=== PATIENT | male | born 1950 | race Caucasian/White ===

== ENCOUNTER → 2016-08-24 | Outpatient (CLI) | payer MEDICARE ==
[~2016-08-24] MED LIST: ALBU5SOL10 IH; ALPR.5T PO; BUDE6HFA IH; DIAZ2TAB2 PO; FLUO20CA25 PO; LISI40TA PO; MECL-124 PO; ONDAN4ODT PO; OXYC-12 PO; SCOP1PAT TD; TERB250T42 PO; TIOT18CA IH; TRAM50TA2 PO; ZLP10T PO
--- NOTE | 2016-08-24 15:20 | Diagnostic Imaging Report ---
PROCEDURE: Lung cancer screening CT chest without contrast. TECHNIQUE: Multiple contiguous axial images were obtained through the chest without the use of intravenous contrast. This is performed with a low-dose protocol. INDICATION: Currently asymptomatic patient with 60 pack years history of smoking Comparison: None. Findings: The lungs demonstrate no significant consolidation, mass or suspicious nodule. No significant interstitial lung changes and no significant emphysema changes are noted. The mediastinum demonstrates normal cardiac size, no pericardial effusion and normal size of the thoracic aorta. No mediastinal mass or lymphadenopathy is demonstrated. No axillary lymphadenopathy is seen. The hilar vessels are not opacified on this unenhanced exam with no obvious hilar mass. The osseous structures demonstrate mild degenerative changes changes in the mid to lower thoracic spine. IMPRESSION: No significant abnormality. Lung Rads Category 1. Normal. Recommendations: Annual screening low-dose CT scan. Dictated by: Dictated on workstation # [id number]
== END ==
LOC: RAD 10:53
PROVIDERS: ATTEND Nurse Practitioner Community Health
DX: Z12.2 Encounter for screening for malignant neoplasm of respiratory organs (principal); F17.210 Nicotine dependence, cigarettes, uncomplicated

== ENCOUNTER → 2017-01-03 | Outpatient (CLI) | payer MEDICARE | LOC: RAD 08:37 | PROVIDERS: ATTEND Orthopaedic Surgery | DX: M75.111 Incomplete rotator cuff tear or rupture of right shoulder, not specified as traumatic (principal) ==

== ENCOUNTER 2017-01-23 19:51 | Outpatient (CLI) | payer MEDICARE | END 2017-01-24 03:55 | disposition home or self-care (01) | LOC: SLEEP 19:51 | PROVIDERS: ATTEND Nurse Practitioner Family | DX: G47.33 Obstructive sleep apnea (adult) (pediatric) (principal); I10 Essential (primary) hypertension | CPT/HCPCS: 95810 ==

== ENCOUNTER → 2017-01-25 | Outpatient (CLI) | payer MEDICARE ==
[~2017-01-25] MED LIST changes: +ALBU0.63 IH; +ARFO15VI3 IH; +OXYC-197 PO; +RT-ALBUINH IH; +RT-ALBUTEROL SULF 2.5 MG/3 ML PRE-MIX VIAL IH ONE; +ZOLP5TAB7 PO
== END ==
LOC: RT 13:47
PROVIDERS: ATTEND Nurse Practitioner Family
DX: E66.01 Morbid (severe) obesity due to excess calories; Z72.0 Tobacco use; R09.02 Hypoxemia; J42 Unspecified chronic bronchitis; R06.02 Shortness of breath; J45.909 Unspecified asthma, uncomplicated
CPT/HCPCS: 94060; 94640; 94726; 94729

== ENCOUNTER 2017-03-20 11:41 | Outpatient (CLI) | payer MEDICARE ==
[~2017-03-20] VITALS: Ht 177.8 cm; Wt 162.6 kg
[~2017-03-20 11:41] MED LIST changes: -ALBU0.63 IH; -ARFO15VI3 IH; -OXYC-197 PO; -RT-ALBUINH IH; -RT-ALBUTEROL SULF 2.5 MG/3 ML PRE-MIX VIAL IH ONE; -ZOLP5TAB7 PO
[2017-03-20] MEDS ORDERED: ARFO15VI3 IH (11:53)
[2017-03-20] MEDS ORDERED: ALBU0.63 IH (11:53)
[2017-03-20] MEDS ORDERED: LISI40TA PO (11:53)
[2017-03-20] MEDS ORDERED: RT-ALBUINH IH (11:53)
[2017-03-20] MEDS ORDERED: ZOLP5TAB7 PO (11:53)
[2017-03-20 11:56] VITALS: BP 115/76
== END 2017-03-20 14:13 | disposition home or self-care (01) ==
LOC: PREOP 11:41
PROVIDERS: ATTEND Orthopaedic Surgery
DX: Z01.818 Encounter for other preprocedural examination (principal); S43.491A Other sprain of right shoulder joint, initial encounter; X58.XXXA Exposure to other specified factors, initial encounter; Y99.8 Other external cause status
CPT/HCPCS: 87081

== ENCOUNTER 2017-03-22 09:14 | Day surgery (SDC) | payer MEDICARE ==
--- NOTE | 2017-03-09 06:15 | HISTORY AND PHYSICAL ---
DATE OF SERVICE: DATE OF OUTPATIENT SURGERY: 03/22/2017 for right shoulder arthroscopic biceps tenotomy. HISTORY: The patient is a 66-year-old right hand dominant gentleman with complaints of progressively worsening right shoulder pain. He has undergone treatment with injections, activity modifications and anti-inflammatories but he reports continued functional impairment. An MRI revealed rotator cuff tendinosis with no tearing with a near complete tear of the long head of his biceps. Due to functional impairment and failure to improve with conservative measures, the patient elected to proceed with surgical intervention. REVIEW OF SYSTEMS: No chest pain, no shortness of breath, no dysuria. PAST MEDICAL HISTORY: COPD, hypertension, vertigo. PAST SURGICAL HISTORY: Bilateral hip arthroplasty. FAMILY HISTORY: Ischemic heart disease. PRIMARY CARE PROVIDER: Xiomara Collado NP MEDICATIONS: Lisinopril, Albuterol, Brovana, Budesonide, Zolpidem, Hydrocodone, Alprazolam. ALLERGIES: No known drug allergies. SOCIAL HISTORY: The patient drinks alcohol socially, denies tobacco use. PHYSICAL EXAM: GENERAL: The patient is well-developed, well-nourished in no acute distress. HEENT: Normocephalic, atraumatic. Pupils are equal, round and reactive to light. Oropharynx is clear. NECK: Supple with no lymphadenopathy. LUNGS: Clear to auscultation bilaterally. HEART: Regular rate and rhythm. ABDOMEN: Soft, nontender, nondistended. EXTREMITIES: The right shoulder demonstrates positive Neer and positive Hawkin sign with a positive [place]'s whenever he has pain with apprehension relieved with relocation. He has symmetric forward elevation, external and internal rotation. No gross weakness to abduction, external or internal rotation. IMPRESSION: Right shoulder long-handed bicipital tendinosis with impingement. PLAN: Right shoulder arthroscopic biceps tenotomy and acromioplasty. The risks, benefits, options, ramifications and recovery have been discussed at length with the patient. He understands and wishes to proceed. Job ID: [id number] DocumentID: [id number] Dictated Date: 02/14/2017 11:44:09 Aeronautical Test Engineer Date: 02/14/2017 12:13:58 Dictated By: KATE STUART MD
--- NOTE | 2017-03-13 16:28 | HISTORY AND PHYSICAL ---
DATE OF SERVICE: ADMISSION HISTORY AND PHYSICAL DATE OF ADMISSION: 03/22/2017. LAST-FOUR SOCIAL SECURITY: 2283. REASON FOR ADMISSION: This will be for outpatient surgery on 03/22/2017 for right shoulder arthroscopy. HISTORY OF PRESENT ILLNESS: The patient is a 66-year-old right hand dominant gentleman with complaints of right shoulder pain, worse with overhead activities. He has undergone treatment with injections, home exercise program and activity modifications without relief. An MRI revealed rotator cuff tendinosis with near complete disruption of his long head of his biceps and due to functional impairment and failure to improve with conservative measures, the patient has elected to proceed with surgical intervention. REVIEW OF SYSTEMS: No chest pain, no shortness of breath, no dysuria. PAST MEDICAL HISTORY: COPD, hypertension, vertigo. PAST SURGICAL HISTORY: Bilateral hip arthroplasty. FAMILY HISTORY: Significant for ischemic heart disease and cancer. PRIMARY CARE PROVIDER: [facility]. MEDICATIONS: 1. Lisinopril. 2. Albuterol. 3. Brovana. 4. Budesonide. 5. Zolpidem. 6. Hydrocodone. 7. Alprazolam. ALLERGIES: No known drug allergies. SOCIAL HISTORY: The patient drinks alcohol socially. Denies tobacco use. PHYSICAL EXAMINATION: GENERAL: The patient is well developed, well nourished, in no acute distress. HEENT: Normocephalic, atraumatic. Pupils are equal, round, and reactive to light. Oropharynx is clear. NECK: Supple, no lymphadenopathy. LUNGS: Clear to auscultation bilaterally. HEART: Regular rate and rhythm. ABDOMEN: Soft, nontender, nondistended. EXTREMITIES: The right shoulder demonstrates positive Neer's and positive Hawkin sign. He has weakness with abduction and external rotation with pain elicited. He has a markedly positive [place]'s maneuver. He is nontender to his acromioclavicular joint. He has no pain with cross body adduction. IMPRESSION: Right shoulder rotator cuff tendinosis with long head of biceps tear. PLAN: Right shoulder arthroscopy with biceps tenotomy and acromioplasty. The patient understands risks, benefits, options, ramifications and recovery. He understands and wishes to proceed. Job ID: [id number] DocumentID: [id number] Dictated Date: 03/13/2017 13:21:48 Psychiatry Teacher Date: 03/13/2017 14:04:18 Dictated By: KATE STUART MD
[~2017-03-22] VITALS: Ht 177.8 cm; Wt 162.6 kg
[2017-03-22 09:14] VITALS: BP 153/98
[~2017-03-22 09:14] MED LIST changes: +ALBU0.63 IH; +ARFO15VI3 IH; +RT-ALBUINH IH; +ZOLP5TAB7 PO
--- OUTSIDE RECORDS SUMMARY | 2017-03-22 09:22 | XMS REPORT ---
Author Author JENNIFER FERRELL Organization [employer] Address Unknown Phone Unavailable Care Team Providers Care Hearing Aid Fitter Name Role Phone JENNIFER FERRELL CP Unavailable Allergies No Known Allergies Problems Problem Type Condition Code Onset Dates Condition Status Problem Polyuria 788.42 Active Problem Other malaise and fatigue 780.79 Active Problem Enthesopathy of unspecified site 726.90 Active Problem Shortness of breath R06.02 Active Problem Persistent disorder of 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.42 Active Problem Insomnia G47.00 Active Problem Unspecified constipation 564.00 Active Problem Hypoxemia 799.02 Active Problem Unspecified prostatitis 601.9 Active Problem Asthma, unspecified, with (acute) exacerbation 493.92 Active Problem Insomnia, unspecified 780.52 Active Problem Lumbago 724.2 Active Problem Pain in joint, pelvic region and thigh 719.45 Active Problem Obesity, unspecified 278.00 Active Problem Esophageal reflux 530.81 Active Problem Dysthymic disorder 300.4 Active Problem Blood in stool 578.1 Active Problem Injury of face and neck, other and unspecified 959.09 Active Problem Diarrhea 787.91 Active Problem Open wound of hand except finger(s) alone, without mention of complication 882.0 Active Medications Medication Code System Code Instructions Start Date End Date Status Dosage Xanax [facility] [address]-73 1 MG Orally 2 times a day August 04, 2014 1 tablet Hydrocodone-Acetaminophen [facility] [address]-15 10-325 MG Orally Once a day August 04, 2014 1 tablet Results No Known Results Summary Purpose eClinicalWorks Submission
--- OUTSIDE RECORDS SUMMARY | 2017-03-22 09:22 | XMS REPORT ---
Author Author JENNIFER FERRELL Organization [employer] Address Unknown Phone Unavailable Care Team Providers Care Internet Designer Name Role Phone JENNIFER FERRELL CP Unavailable Allergies No Known Allergies Problems Problem Type Condition Code Onset Dates Condition Status Problem Injury of face and neck, other and unspecified 959.09 Active Problem Polyuria 788.42 Active Problem Open wound of hand except finger(s) alone, without mention of complication 882.0 Active Problem Unspecified prostatitis 601.9 Active Problem Asthma, unspecified, with (acute) exacerbation 493.92 Active Problem Persistent disorder of 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.42 Active Problem Other malaise and fatigue 780.79 Active Problem Enthesopathy of unspecified site 726.90 Active Problem Unspecified constipation 564.00 Active Problem Hypoxemia 799.02 Active Problem Pain in joint, pelvic region and thigh 719.45 Active Problem Obesity, unspecified 278.00 Active Problem Blood in stool 578.1 Active Problem Diarrhea 787.91 Active Problem Insomnia, unspecified 780.52 Active Problem Esophageal reflux 530.81 Active Problem Lumbago 724.2 Active Problem Dysthymic disorder 300.4 Active Medications Medication Code System Code Instructions Start Date End Date Status Dosage Hydrocodone-Acetaminophen [facility] [address]-34 10-325 MG August 04, 2014 1 tablet by Oral route 1 time per day PRN at hs Xanax [facility] [address]-36 1 MG August 04, 2014 1 tablet by Oral route 2 times per day Results No Known Results Summary Purpose eClinicalWorks Submission
--- OUTSIDE RECORDS SUMMARY | 2017-03-22 09:22 | XMS REPORT ---
Author Author JENNIFER FERRELL [facility] Address [address] [place] [address] Care Team Providers Care Machine Operator Assistant Name Role Phone JENNIFER FERRELL Unavailable PROBLEMS Type Condition ICD9-CM Code [id number] Code Onset Dates Condition Status SNOMED Code Problem Gastroesophageal reflux disease without esophagitis K21.9 Active 867795803 Problem Mild intermittent asthma without complication J45.20 Active 241466556 Problem Dysthymia F34.1 Active 29130875 Problem Primary insomnia F51.01 Active 0699145 Problem Obstructive sleep apnea syndrome G47.33 Active 82635815 Problem Chronic obstructive pulmonary disease, unspecified J44.9 Active 88849284 Problem Insomnia G47.00 Active 182387678 Problem Shortness of breath R06.02 Active 965173260 Problem Low back pain M54.5 Active 204530499 Problem Anxiety F41.9 Active 69171446 ALLERGIES No Information SOCIAL HISTORY Never Assessed PLAN OF CARE VITAL SIGNS MEDICATIONS Medication Instructions Dosage Frequency Start Date End Date Duration Status ProAir HFA 108 (90 Base) MCG/ACT Inhalation every 4 hrs 2 puffs as needed for short of breath or wheeze 4h 90 days Active RESULTS No Results PROCEDURES No Known procedures IMMUNIZATIONS No Known Immunizations MEDICAL (GENERAL) HISTORY Type Description Date Medical History hypertension Medical History chronic obstructive pulmonary disease (COPD) Medical History diverticulitis Medical History gastroesophageal reflux disease (GERD) Medical History obesity Surgical History tonsillectomy Surgical History orthopedic surgery Surgical History cataract removal 05/2015 Hospitalization History Hospitalization for surgery only
--- OUTSIDE RECORDS SUMMARY | 2017-03-22 09:22 | XMS REPORT ---
Author Author JENNIFER FERRELL [facility] eClinicalWorks Address Unknown Phone Unavailable Care Team Providers Care Travel Professional Name Role Phone JENNIFER FERRELL CP Unavailable Allergies, Adverse Reactions, Alerts Substance Reaction Event Type N.K.D.A. Info Not Available Non Drug Allergy Problems Problem Type Condition Code Onset Dates Condition Status Assessment Bronchitis J40 Active Problem Enthesopathy of unspecified site 726.90 Active Assessment Anxiety F41.9 Active Problem Other malaise and fatigue 780.79 Active Assessment Low back pain M54.5 Active Problem Hypoxemia 799.02 Active Problem Asthma, unspecified, with (acute) exacerbation 493.92 Active Problem Unspecified constipation 564.00 Active Problem Low back pain M54.5 Active Problem Anxiety F41.9 Active Problem Insomnia, unspecified 780.52 Active Problem Obesity, unspecified 278.00 Active Problem Chronic obstructive pulmonary disease, unspecified J44.9 Active Problem Pain in joint, pelvic region and thigh 719.45 Active Problem Persistent disorder of 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.42 Active Problem Unspecified prostatitis 601.9 Active Problem Insomnia G47.00 Active Problem Shortness of breath R06.02 Active Problem Diarrhea 787.91 Active Problem Esophageal reflux 530.81 Active Problem Lumbago 724.2 Active Problem Blood in stool 578.1 Active Problem Open wound of hand except finger(s) alone, without mention of complication 882.0 Active Problem Polyuria 788.42 Active Problem Dysthymic disorder 300.4 Active Problem Injury of face and neck, other and unspecified 959.09 Active Medications Medication Code System Code Instructions Start Date End Date Status Dosage Transderm-Scop [facility] [address]-02 1 MG/3DAYS Transdermal every 3 days Mar apply 1 patch as directed ProAir HFA [facility] [address]-71 108 (90 Base) MCG/ACT Inhalation every 4 hrs 2 puffs as needed for short of breath or wheeze Hydrocodone-Acetaminophen [facility] [address]-74 10-325 MG Orally Once a day August 04, 2014 1 tablet Zithromax Z-Jake [facility] [address]-14 250 MG Orally Once a day Feb 23, 2016 Feb 28, 2016 2 tablets on the first day, then 1 tablet daily for 4 days Ambien [facility] [address]-58 10 mg Orally Once a day as needed 1 tablet at bedtime Albuterol Sulfate [facility] [address]-07 (2.5 MG/3ML) 0.083% Inhalation every 4 hrs 1 vial in nebuizer as needed for cough or wheeze Lisinopril [facility] [address]-83 40 MG Orally TAKE ONE TABLET BY MOUTH EVERY MORNING Budesonide [facility] [address]-21 0.5 MG/2ML Inhalation Twice a day 1 vial in nebulizer PredniSONE [facility] [address]-62 20 mg Orally Once a day Feb 23, 2016 3 tablets daily X 4 days, 3 tabs daily X 3 days, 2 tabs daily X 2 days, 1 tab x 1 day and stop Xanax [facility] [address]-41 1 MG Orally 2 times a day August 04, 2014 1 tablet Brovana [facility] [address]-90 15 MCG/2ML Inhalation Twice a day 1 vial in nebulizer Procedures Procedure Coding System Code Date [facility] VISIT ESTABLISHED PATIENT CPT-4 G0467 Feb 23, 2016 Office Visit, Est Pt., Level 3 CPT-4 86409 Feb 23, 2016 No Charge CPT-4 28132 Feb 23, 2016 Vital Signs Date/Time: Feb 23, 2016 Cardiac Monitoring Heart Rate 92 bpm Weight 347.1 lbs Height 70 in BMI 49.80 Index Blood Pressure Diastolic 76 mmHg Blood Pressure Systolic 110 mmHg Results Name Result Date Reference Range Unit Abnormality Flag [employer] Summary Purpose eClinicalWorks Submission
--- OUTSIDE RECORDS SUMMARY | 2017-03-22 09:23 | XMS REPORT ---
Author Author JENNIFER FERRELL [facility] Address [address] [place] [address] Care Team Providers Care Editor House Organ Name Role Phone JENNIFER FERRELL Unavailable PROBLEMS Type Condition ICD9-CM Code [id number] Code Onset Dates Condition Status SNOMED Code Problem Gastroesophageal reflux disease without esophagitis K21.9 Active 030342265 Problem Mild intermittent asthma without complication J45.20 Active 828745157 Problem Dysthymia F34.1 Active 69840910 Problem Primary insomnia F51.01 Active 8820245 Problem Obstructive sleep apnea syndrome G47.33 Active 91852462 Problem Chronic obstructive pulmonary disease, unspecified J44.9 Active 47392665 Problem Insomnia G47.00 Active 893386366 Problem Shortness of breath R06.02 Active 663631270 Problem Low back pain M54.5 Active 737205086 Problem Anxiety F41.9 Active 91193796 ALLERGIES Unknown Allergies SOCIAL HISTORY No smoking Hx information available PLAN OF CARE VITAL SIGNS MEDICATIONS Medication Instructions Dosage Frequency Start Date End Date Duration Status Hydrocodone-Acetaminophen 10-325 MG Orally Once a day 1 tablet 24h 25 May, 2016 28 days Active Xanax 1 MG Orally 2 times a day 1 tablet 12h 30 Jul, 2014 28 days Active RESULTS No Results PROCEDURES No Known procedures IMMUNIZATIONS No Known Immunizations
--- OUTSIDE RECORDS SUMMARY | 2017-03-22 09:23 | XMS REPORT ---
Author Author JENNIFER FERRELL [facility] Address [address] [place] [address] Care Team Providers Care Drop Man Name Role Phone JENNIFER FERRELL Unavailable PROBLEMS Type Condition ICD9-CM Code OSN23-GR Code Onset Dates Condition Status SNOMED Code Problem Unspecified constipation 564.00 Active 12246111 Problem Unspecified prostatitis 601.9 Active 4272310 Problem Asthma, unspecified, with (acute) exacerbation 493.92 Active 831190347 Problem Chronic obstructive pulmonary disease, unspecified J44.9 Active 19957202 Problem Lumbago 724.2 Active 856386719 Problem Low back pain M54.5 Active 535838314 Problem Insomnia, unspecified 780.52 Active 382737246 Problem Obesity, unspecified 278.00 Active 415376265 Problem Shortness of breath R06.02 Active 122135340 Problem Persistent disorder of 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.42 Active 60756019 Problem Anxiety F41.9 Active 57761513 Problem Insomnia G47.00 Active 811914246 Problem Esophageal reflux 530.81 Active 487493949 Problem Dysthymic disorder 300.4 Active 88010325 Problem Blood in stool 578.1 Active 742558051 Problem Diarrhea 787.91 Active 76701326 Problem Polyuria 788.42 Active 24970833 Problem Enthesopathy of unspecified site 726.90 Active 20359620 Problem Injury of face and neck, other and unspecified 959.09 Active 44007675 Problem Other malaise and fatigue 780.79 Active 009655387 Problem Pain in joint, pelvic region and thigh 719.45 Active 891640241 Problem Open wound of hand except finger(s) alone, without mention of complication 882.0 Active 86705518 Problem Hypoxemia 799.02 Active 501176370 ALLERGIES No Known Allergies SOCIAL HISTORY No smoking Hx information available PLAN OF CARE VITAL SIGNS MEDICATIONS Medication Instructions Dosage Frequency Start Date End Date Duration Status Lisinopril 40 MG TAKE ONE TABLET BY MOUTH EVERY MORNING 90 Active RESULTS No Results PROCEDURES No Known procedures IMMUNIZATIONS No Known Immunizations
--- OUTSIDE RECORDS SUMMARY | 2017-03-22 09:23 | XMS REPORT ---
Author Author JENNIFER FERRELL [facility] eClinicalWorks Address Unknown Phone Unavailable Care Team Providers Care Major League Baseball Player Name Role Phone JENNIFER FERRELL CP Unavailable [...] 719.45 Active Problem Obesity, unspecified 278.00 Active Assessment Chronic obstructive pulmonary disease, unspecified J44.9 Active Problem Blood in stool 578.1 Active Problem Diarrhea 787.91 Active Problem Insomnia, unspecified 780.52 Active Problem Esophageal reflux 530.81 Active Problem Lumbago 724.2 Active Problem Dysthymic disorder 300.4 Active Medications Medication Code System Code Instructions Start Date End Date Status Dosage Lisinopril [facility] 80111357073 40 TAKE ONE TABLET BY MOUTH EVERY MORNING Ambien [facility] [address]-15 5 MG Orally Once a day as needed 1 tablet at bedtime ProAir HFA [facility] [address]-81 108 (90 Base) MCG/ACT Inhalation 4 times a day 2 puffs as needed Budesonide [facility] [address]-84 0.25 MG/2ML Inhalation Once a day 2 ml Xanax [facility] [address]-08 1 MG August 04, 2014 1 tablet by Oral route 2 times per day Albuterol Sulfate [facility] [address]-65 (2.5 MG/3ML) 0.083% Inhalation every 4 hrs 3 ml as needed Brovana [facility] [address]-01 15 MCG/2ML Inhalation Twice a day 2 ml Hydrocodone-Acetaminophen [facility] [address]-48 10-325 MG August 04, 2014 1 tablet by Oral route 1 time per day PRN at Procedures Procedure Coding System Code Date Office Visit, Est Pt., Level 3 CPT-4 53183 Feb 12, 2015 REPLACED BY [facility] VISIT ESTABLISHED PATIENT CPT-4 G0467 Feb 12, 2015 Vital Signs Date/Time: Feb 12, 2015 Temperature 98.1 F Weight 350.3 lbs Height 70 in BMI 50.26 Index Blood Pressure Diastolic 86 mmHg Blood Pressure Systolic 134 mmHg Cardiac Monitoring Heart Rate 84 bpm Results No Known Results Summary Purpose eClinicalWorks Submission
--- OUTSIDE RECORDS SUMMARY | 2017-03-22 09:23 | XMS REPORT ---
Author Author JENNIFER FERRELL Organization [employer] Address Unknown Phone Unavailable Care Team Providers Care Demo Event Specialist Name Role Phone JENNIFER FERRELL CP Unavailable Allergies No Known Allergies Problems Problem Type Condition Code Onset Dates Condition Status Problem Polyuria 788.42 Active Problem Other malaise and fatigue 780.79 Active Problem Enthesopathy of unspecified site 726.90 Active Problem Shortness of breath R06.02 Active Assessment Shortness of breath R06.02 Active Problem Persistent [...] Instructions Start Date End Date Status Dosage Symbicort [facility] 2] [address]-16 160-4.5 MCG/ACT Inhalation Twice a day July 2 puffs Results No Known Results Summary Purpose eClinicalWorks Submission
--- OUTSIDE RECORDS SUMMARY | 2017-03-22 09:23 | XMS REPORT ---
Author Author JENNIFER FERRELL Organization eClinicalWorks Address Unknown Phone Unavailable Care Team Providers Care Scratch Polisher Name Role Phone JENNIFER FERRELL CP Unavailable [...] Start Date End Date Status Dosage Hydrocodone-Acetaminophen [facility] [address]-63 10-325 MG August 04, 2014 1 tablet by Oral route 1 time per day PRN at hs Xanax [facility] [address]-40 1 MG August 04, 2014 1 tablet by Oral route 2 times per day Results No Known Results Summary Purpose eClinicalWorks Submission
--- OUTSIDE RECORDS SUMMARY | 2017-03-22 09:23 | XMS REPORT ---
Author Author JENNIFER FERRELL [facility] Address [address] [place] [address] Care Team Providers Care Vending Route Driver Name Role Phone JENNIFER FERRELL Unavailable PROBLEMS Type Condition ICD9-CM Code [id number] Code Onset Dates Condition Status SNOMED Code Problem Gastroesophageal reflux disease without esophagitis K21.9 Active 229346681 Problem Mild intermittent asthma without complication J45.20 Active 320256556 Problem Dysthymia F34.1 Active 19549796 Problem Primary insomnia F51.01 Active 9387517 Problem Obstructive sleep apnea syndrome G47.33 Active 67759520 Problem Chronic obstructive pulmonary disease, unspecified J44.9 Active 67332166 Problem Insomnia G47.00 Active 270192481 Problem Shortness of breath R06.02 Active 051280129 Problem Low back pain M54.5 Active 484588509 Problem Anxiety F41.9 Active 12881763 ALLERGIES No Information SOCIAL HISTORY Never Assessed PLAN OF CARE VITAL SIGNS MEDICATIONS Medication Instructions Dosage Frequency Start Date End Date Duration Status Lisinopril 40 MG Orally Once a day 1 tablet 24h 90 days Active RESULTS No Results PROCEDURES No Known procedures IMMUNIZATIONS No Known Immunizations MEDICAL (GENERAL) HISTORY Type Description Date Medical History hypertension Medical History chronic obstructive pulmonary disease (COPD) Medical History diverticulitis Medical History gastroesophageal reflux disease (GERD) Medical History obesity Medical History PFT 01/2017 Mod obstructive Defect Surgical History tonsillectomy Surgical History orthopedic surgery Surgical History cataract removal 05/2015 Hospitalization History Hospitalization for surgery only
--- OUTSIDE RECORDS SUMMARY | 2017-03-22 09:23 | XMS REPORT ---
Author Author JENNIFER FERRELL Organization eClinicalWorks Address Unknown Phone Unavailable Care Team Providers Care Hha Name Role Phone JENNIFER FERRELL CP Unavailable Allergies No Known Allergies Problems Problem Type Condition ICD-9 Code Onset Dates Condition Status Problem Injury [...] Start Date End Date Status Dosage Hydrocodone-Acetaminophen [facility] [address]-67 10-325 MG August 04, 2014 1 tablet by Oral route 1 time per day PRN at hs Xanax [facility] [address]-65 1 MG August 04, 2014 1 tablet by Oral route 2 times per day Results No Known Results Summary Purpose eClinicalWorks Submission
--- OUTSIDE RECORDS SUMMARY | 2017-03-22 09:24 | XMS REPORT ---
Author Author JENNIFER FERRELL Organization eClinical[employer] Address Unknown Phone Unavailable Care Team Providers Care Clock Smith Name Role Phone JENNIFER FERRELL CP Unavailable Allergies No Known Allergies Problems Problem Type Condition Code Onset Dates Condition Status Problem Other malaise and fatigue 780.79 Active Problem Unspecified constipation 564.00 Active Problem Hypoxemia 799.02 Active Problem Anxiety F41.9 Active Problem Obesity, unspecified 278.00 Active Problem Insomnia G47.00 Active Problem Pain in joint, pelvic region and thigh 719.45 Active Problem Low back pain M54.5 Active Problem Unspecified prostatitis 601.9 Active Problem Asthma, unspecified, with (acute) exacerbation 493.92 Active Problem Shortness of breath R06.02 Active Problem Persistent disorder of 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.42 Active Problem Blood in stool 578.1 Active Problem Diarrhea 787.91 Active Problem Insomnia, unspecified 780.52 Active Problem Lumbago 724.2 Active Problem Injury of face and neck, other and unspecified 959.09 Active Problem Open wound of hand except finger(s) alone, without mention of complication 882.0 Active Problem Esophageal reflux 530.81 Active Problem Polyuria 788.42 Active Problem Dysthymic disorder 300.4 Active Problem Enthesopathy of unspecified site 726.90 Active Medications Medication Code System Code Instructions Start Date End Date Status Dosage ProAir A [facility] [address]-14 108 (90 Base) MCG/ACT Inhalation every 4 hrs 2 puffs as needed for short of breath or wheeze Results No Known Results Summary Purpose eClinicalWorks Submission
--- OUTSIDE RECORDS SUMMARY | 2017-03-22 09:24 | XMS REPORT ---
Author Author JENNIFER FERRELL [facility] Address [address] [place] [address] Care Team Providers Care Finishing Technician Name Role Phone JENNIFER FERRELL Unavailable PROBLEMS Type Condition ICD9-CM Code [id number] Code Onset Dates Condition Status SNOMED Code Assessment Encounter for immunization Z23 Mar, Active 958004466 Problem Hypoxemia 799.02 Active 871755696 Problem Pain in joint, pelvic region and thigh 719.45 Active 919387357 Problem Unspecified constipation 564.00 Active 90236378 Problem Obesity, unspecified 278.00 Active 372492863 Problem Asthma, unspecified, with (acute) exacerbation 493.92 Active 084922860 Problem Persistent disorder of 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.42 Active 22679797 Problem Unspecified prostatitis 601.9 Active 9430829 Problem Obstructive sleep apnea syndrome G47.33 Active 95565533 Problem Chronic obstructive pulmonary disease, unspecified J44.9 Active 74390717 Problem Blood in stool 578.1 Active 442798005 Problem Lumbago 724.2 Active 511313230 Problem Insomnia, unspecified 780.52 Active 627332708 Problem Insomnia G47.00 Active 564448732 Problem Shortness of breath R06.02 Active 917298709 Problem Low back pain M54.5 Active 581670492 Problem Anxiety F41.9 Active 16822345 Problem Dysthymic disorder 300.4 Active 19338955 Problem Injury of face and neck, other and unspecified 959.09 Active 81534829 Problem Diarrhea 787.91 Active 07219697 Problem Esophageal reflux 530.81 Active 076459032 Problem Enthesopathy of unspecified site 726.90 Active 27410078 Problem Other malaise and fatigue 780.79 Active 370275665 Problem Open wound of hand except finger(s) alone, without mention of complication 882.0 Active 63587507 Problem Polyuria 788.42 Active 11379496 ALLERGIES Substance Reaction Event Type Date Status N.K.D.A. Unknown Non Drug Allergy Mar, Unknown SOCIAL HISTORY No smoking Hx information available PLAN OF CARE VITAL SIGNS Height 70 in 2016-03-24 Weight 348.0 lbs 2016-03-24 Heart Rate 78 bpm 2016-03-24 Respiratory Rate 22 2016-03-24 Oximetry 96 % 2016-03-24 BMI 49.93 kg/m2 2016-03-24 Blood pressure systolic 118 mmHg 2016-03-24 Blood pressure diastolic 72 mmHg 2016-03-24 MEDICATIONS Medication Instructions Dosage Frequency Start Date End Date Duration Status Albuterol Sulfate (2.5 MG/3ML) 0.083% Inhalation every 4 hrs 1 vial in nebuizer as needed for cough or wheeze 4h Active Brovana 15 MCG/2ML Inhalation Twice a day 1 vial in nebulizer 12h Active Transderm-Scop 1 MG/3DAYS Transdermal every 3 days apply 1 patch as directed Mar, Active Xanax 1 MG Orally 2 times a day 1 tablet 12h Jul, 28 days Active Lisinopril 40 MG TAKE ONE TABLET BY MOUTH EVERY MORNING 90 Active Budesonide 0.5 MG/2ML Inhalation Twice a day 1 vial in nebulizer 12h Active ProAir HFA 108 (90 Base) MCG/ACT Inhalation every 4 hrs 2 puffs as needed for short of breath or wheeze 4h Active Ambien 10 mg Orally Once a day as needed 1 tablet at bedtime Active Hydrocodone-Acetaminophen 10-325 MG Orally Once a day 1 tablet 24h Jul, Apr, 28 days Active RESULTS No Results PROCEDURES Procedure Date Ordered Related Diagnosis Body Site MEASURE BLOOD OXYGEN LEVEL Mar 24, 2016 [facility] VISIT ESTABLISHED PATIENT Mar 24, 2016 Office Visit, Est Pt., Level 3 Mar 24, 2016 IMMUNIZATIONS No Known Immunizations
--- OUTSIDE RECORDS SUMMARY | 2017-03-22 09:26 | XMS REPORT ---
Author Author JENNIFER FERRELL [facility] Address [address] [place] [address] Care Team Providers Care Boat Tester Name Role Phone JENNIFER FERRELL Unavailable PROBLEMS Type Condition ICD9-CM Code [id number] Code Onset Dates Condition Status SNOMED Code Problem Unspecified constipation 564.00 Active 38007378 Problem Unspecified prostatitis 601.9 Active 5138966 Problem Asthma, unspecified, with (acute) exacerbation 493.92 Active 927621476 Problem Chronic obstructive pulmonary disease, unspecified J44.9 Active 66748709 Problem Lumbago 724.2 Active 820399683 Problem Low back pain M54.5 Active 820590618 Problem Insomnia, unspecified 780.52 Active 883173722 Problem Obesity, unspecified 278.00 Active 829420850 Problem Shortness of breath R06.02 Active 670554357 Problem Persistent disorder of 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.42 Active 03237610 Problem Anxiety F41.9 Active 28521397 Problem Insomnia G47.00 Active 679796077 Problem Esophageal reflux 530.81 Active 221041872 Problem Dysthymic disorder 300.4 Active 40933824 Problem Blood in stool 578.1 Active 023985490 Problem Diarrhea 787.91 Active 42689622 Problem Polyuria 788.42 Active 25541440 Problem Enthesopathy of unspecified site 726.90 Active 63678159 Assessment Chronic obstructive pulmonary disease, unspecified J44.9 Jan, Active 19527684 Problem Injury of face and neck, other and unspecified 959.09 Active 45504622 Problem Other malaise and fatigue 780.79 Active 450144802 Problem Pain in joint, pelvic region and thigh 719.45 Active 149137544 Problem Open wound of hand except finger(s) alone, without mention of complication 882.0 Active 90595600 Problem Hypoxemia 799.02 Active 390020996 ALLERGIES No Known Allergies SOCIAL HISTORY No smoking Hx information available PLAN OF CARE VITAL SIGNS MEDICATIONS Medication Instructions Dosage Frequency Start Date End Date Duration Status Lisinopril 40 MG TAKE ONE TABLET BY MOUTH EVERY MORNING 90 Active Xanax 1 MG Orally 2 times a day 1 tablet 12h 30 Jul, 2014 28 days Active Albuterol Sulfate (2.5 MG/3ML) 0.083% Inhalation every 4 hrs 1 vial in nebuizer as needed for cough or wheeze 4h Active Ambien 10 mg Orally Once a day as needed 1 tablet at bedtime Active Budesonide 0.5 MG/2ML Inhalation Twice a day 1 vial in nebulizer 12h Active Advair Diskus 250-50 MCG/DOSE Inhalation Twice a day 1 puff 12h Aug, Active Hydrocodone-Acetaminophen 10-325 MG Orally Once a day 1 tablet 24h 30 Jul, 2014 28 days Active Brovana 15 MCG/2ML Inhalation Twice a day 1 vial in nebulizer 12h Active Transderm-Scop 1 MG/3DAYS Transdermal every 3 days apply 1 patch as directed Mar, Active ProAir HFA 108 (90 Base) MCG/ACT Inhalation every 4 hrs 2 puffs as needed for short of breath or wheeze 4h Active RESULTS No Results PROCEDURES No Known procedures IMMUNIZATIONS No Known Immunizations
--- OUTSIDE RECORDS SUMMARY | 2017-03-22 09:26 | XMS REPORT ---
Author Author JENNIFER FERRELL Organization eClinicalWorks Address Unknown Phone Unavailable Care Team Providers Care Associate Media Director Name Role Phone JENNIFER FERRELL CP Unavailable [...] Instructions Start Date End Date Status Dosage Ambien [facility] [address]-01 10 mg Orally Once a day as needed 1 tablet at bedtime Albuterol Sulfate [facility] [address]-12 (2.5 MG/3ML) 0.083% Inhalation every 4 hrs 1 vial as needed for cough or wheeze Results No Known Results Summary Purpose eClinicalWorks Submission
--- OUTSIDE RECORDS SUMMARY | 2017-03-22 09:27 | XMS REPORT ---
Author Author JENNIFER FERRELL [facility] Address [address] [place] [address] Care Team Providers Care Icu Manager Name Role Phone JENNIFER FERRELL Unavailable PROBLEMS Type Condition ICD9-CM Code UJP52-QS Code Onset Dates Condition Status SNOMED Code Problem Dysthymia F34.1 Active 68865384 Problem Primary insomnia F51.01 Active 1561562 Problem Mild intermittent asthma without complication J45.20 Active 746245854 Problem Gastroesophageal reflux disease without esophagitis K21.9 Active 272280689 Problem Obstructive sleep apnea syndrome G47.33 Active 33906377 Problem Chronic obstructive pulmonary disease, unspecified J44.9 Active 41658413 Problem Insomnia G47.00 Active 203149383 Problem Shortness of breath R06.02 Active 163054150 Problem Low back pain M54.5 Active 367999250 Problem Anxiety F41.9 Active 84052039 ALLERGIES Unknown Allergies SOCIAL HISTORY No smoking Hx information available PLAN OF CARE VITAL SIGNS MEDICATIONS Unknown Medications RESULTS No Results PROCEDURES No Known procedures IMMUNIZATIONS No Known Immunizations
--- OUTSIDE RECORDS SUMMARY | 2017-03-22 09:28 | XMS REPORT ---
Author Author JENNIFER FERRELL Organization eClinicalWorks Address Unknown Phone Unavailable Care Team Providers Care Wet End Supervisor Name Role Phone JENNIFER FERRELL CP Unavailable [...] Active Problem Dysthymic disorder 300.4 Active Medications No Known Medications Results No Known Results Summary Purpose eClinicalWorks Submission
--- OUTSIDE RECORDS SUMMARY | 2017-03-22 09:28 | XMS REPORT ---
Author Author JENNIFER FERRELL Organization eClinical[employer] Address Unknown Phone Unavailable Care Team Providers Care Global Expansion Sales Director Name Role Phone JENNIFER FERRELL CP [...] Instructions Start Date End Date Status Dosage Advair Diskus [facility] [address]-49 250-50 MCG/DOSE Inhalation Twice a day August 31, 2015 1 puff Results No Known Results Summary Purpose eClinicalWorks Submission
--- OUTSIDE RECORDS SUMMARY | 2017-03-22 09:29 | XMS REPORT ---
Author Author JENNIFER FERRELL Organization eClinical[employer] Address Unknown Phone Unavailable Care Team Providers Care Note Keeper Name Role Phone JENNIFER FERRELL CP Unavailable Allergies No Known Allergies Problems Problem Type Condition Code Onset Dates Condition Status Problem Hypoxemia 799.02 Active Problem Asthma, unspecified, with (acute) exacerbation 493.92 Active Problem Unspecified constipation 564.00 Active Problem Low back pain M54.5 Active Problem Insomnia, unspecified 780.52 Active Problem Anxiety F41.9 Active Problem Obesity, unspecified 278.00 Active Problem Pain in joint, pelvic region and thigh 719.45 Active Problem Chronic obstructive pulmonary disease, unspecified J44.9 Active Problem Persistent disorder of initiating or [...] Enthesopathy of unspecified site 726.90 Active Assessment Chronic obstructive pulmonary disease, unspecified J44.9 Active Problem Injury of face and neck, other and unspecified 959.09 Active Problem Other malaise and fatigue 780.79 Active Medications Medication Code System Code Instructions Start Date End Date Status Dosage Albuterol Sulfate [facility] [address]-37 (2.5 MG/3ML) 0.083% Inhalation every 4 hrs 1 vial in nebuizer as needed for cough or wheeze Results No Known Results Summary Purpose eClinicalWorks Submission
--- OUTSIDE RECORDS SUMMARY | 2017-03-22 09:29 | XMS REPORT ---
Author Author JENNIFER FERRELL [facility] eClinical[employer] Address Unknown Phone Unavailable Care Team Providers Care Electrician Helper Powerhouse Name Role Phone JENNIFER FERRELL CP Unavailable Allergies No Known Allergies Problems Problem Type Condition Code Onset Dates Condition Status Problem Other malaise and fatigue 780.79 Active Problem Unspecified constipation 564.00 Active Problem Hypoxemia 799.02 Active Problem Anxiety F41.9 Active Problem Obesity, unspecified 278.00 Active Problem Insomnia G47.00 Active Problem Pain in joint, pelvic region and thigh 719.45 Active Assessment Vertigo R42 Active Problem Low back pain M54.5 Active [...] Start Date End Date Status Dosage Ambien [facility] [address]-76 10 mg Orally Once a day as needed 1 tablet at bedtime Lisinopril [facility] [address]-33 40 MG Orally TAKE ONE TABLET BY MOUTH EVERY MORNING Brovana [facility] [address]-20 15 MCG/2ML Inhalation Twice a day 2 ml Budesonide [facility] [address]-14 0.25 MG/2ML Inhalation Once a day 2 ml Hydrocodone-Acetaminophen [facility] [address]-71 10-325 MG Orally Once a day August 04, 2014 1 tablet Xanax [facility] [address]-65 1 MG Orally 2 times a day August 04, 2014 1 tablet ProAir HFA [facility] [address]-87 108 (90 Base) MCG/ACT Inhalation every 4 hrs 2 puffs as needed for short of breath or wheeze Transderm-Scop [facility] [address]-73 1 MG/3DAYS Transdermal every 3 days Mar apply 1 patch as directed Advair Diskus [facility] [address]-18 250-50 MCG/DOSE Inhalation Twice a day August 31, 2015 1 puff Albuterol Sulfate [facility] [address]-81 (2.5 MG/3ML) 0.083% Inhalation every 4 hrs 1 vial as needed for cough or wheeze Results No Known Results Summary Purpose eClinicalWorks Submission
--- OUTSIDE RECORDS SUMMARY | 2017-03-22 09:29 | XMS REPORT ---
Author Author JENNIFER FERRELL Organization eClinicalWorks Address Unknown Phone Unavailable Care Team Providers Care Country Printer Name Role Phone JENNIFER FERRELL CP Unavailable [...] Start Date End Date Status Dosage Xanax [facility] [address]-15 1 MG August 04, 2014 1 tablet by Oral route 2 times per day Hydrocodone-Acetaminophen [facility] [address]-57 10-325 MG August 04, 2014 1 tablet by Oral route 1 time per day PRN at hs Results No Known Results Summary Purpose eClinicalWorks Submission
--- OUTSIDE RECORDS SUMMARY | 2017-03-22 09:29 | XMS REPORT ---
Author Author JENNIFER FERRELL [facility] Address [address] [place] [address] Care Team Providers Care Skid Worker Name Role Phone JENNIFER FERRELL Unavailable PROBLEMS Type Condition ICD9-CM Code FAB43-PF Code Onset Dates Condition Status SNOMED Code Problem Dysthymia F34.1 Active 29359540 Problem Primary insomnia F51.01 Active 9451394 Problem Mild intermittent asthma without complication J45.20 Active 351663158 Problem Gastroesophageal reflux disease without esophagitis K21.9 Active 366585804 Problem Obstructive sleep apnea syndrome G47.33 Active 12536428 Problem Chronic obstructive pulmonary disease, unspecified J44.9 Active 69737600 Problem Insomnia G47.00 Active 370040558 Problem Shortness of breath R06.02 Active 313649333 Problem Low back pain M54.5 Active 308553184 Problem Anxiety F41.9 Active 32669581 ALLERGIES Unknown Allergies SOCIAL HISTORY No smoking Hx information available PLAN OF CARE VITAL SIGNS MEDICATIONS Unknown Medications RESULTS No Results PROCEDURES No Known procedures IMMUNIZATIONS No Known Immunizations
[2017-03-22] MEDS ORDERED: ceFAZolin 1 GM/NS 50 ML IVPB IV ONE ×2 (09:30)
--- OUTSIDE RECORDS SUMMARY | 2017-03-22 09:30 | XMS REPORT ---
Author Author JENNIFER FERRELL [facility] Address [address] [place] [address] Care Team Providers Care Bar Manager Name Role Phone JENNIFER FERRELL Unavailable PROBLEMS Type Condition ICD9-CM Code YHN11-DW Code Onset Dates Condition Status SNOMED Code Problem Dysthymia F34.1 Active 21209895 Problem Primary insomnia F51.01 Active 0038246 Problem Mild intermittent asthma without complication J45.20 Active 258571360 Problem Gastroesophageal reflux disease without esophagitis K21.9 Active 361783488 Problem Obstructive sleep apnea syndrome G47.33 Active 45617373 Problem Chronic obstructive pulmonary disease, unspecified J44.9 Active 08264194 Problem Insomnia G47.00 Active 979346596 Problem Shortness of breath R06.02 Active 318309737 Problem Low back pain M54.5 Active 266120525 Problem Anxiety F41.9 Active 46866775 ALLERGIES Unknown Allergies SOCIAL HISTORY No smoking Hx information available PLAN OF CARE VITAL SIGNS MEDICATIONS Unknown Medications RESULTS No Results PROCEDURES No Known procedures IMMUNIZATIONS No Known Immunizations
--- OUTSIDE RECORDS SUMMARY | 2017-03-22 09:30 | XMS REPORT ---
Author Author JENNIFER FERRELL Organization eClinicalWorks Address Unknown Phone Unavailable Care Team Providers Care Treasury Agent Name Role Phone JENNIFER FERRELL CP Unavailable [...] Start Date End Date Status Dosage Xanax [facility] [address]-13 1 MG August 04, 2014 1 tablet by Oral route 2 times per day Hydrocodone-Acetaminophen [facility] [address]-29 10-325 MG August 04, 2014 1 tablet by Oral route 1 time per day PRN at hs Results No Known Results Summary Purpose eClinicalWorks Submission
--- OUTSIDE RECORDS SUMMARY | 2017-03-22 09:30 | XMS REPORT ---
Author Author JENNIFER FERRELL Organization eClinicalWorks Address Unknown Phone Unavailable Care Team Providers Care Director Of Research Name Role Phone JENNIFER FERRELL CP Unavailable [...] Date End Date Status Dosage Albuterol Sulfate [facility] [address]-88 (2.5 MG/3ML) 0.083% Inhalation every 4 hrs 1 vial in nebuizer as needed for cough or wheeze Results No Known Results Summary Purpose eClinicalWorks Submission
--- OUTSIDE RECORDS SUMMARY | 2017-03-22 09:32 | XMS REPORT ---
Author Author JENNIFER FERRELL [facility] Address [address] [place] [address] Care Team Providers Care Product Engineer Name Role Phone JENNIFER FERRELL Unavailable PROBLEMS Type Condition ICD9-CM Code [id number]-FD Code Onset Dates Condition Status SNOMED Code Problem Dysthymia F34.1 Active 88464283 Problem Primary insomnia F51.01 Active 6375835 Problem Mild intermittent asthma without complication J45.20 Active 223956316 Problem Gastroesophageal reflux disease without esophagitis K21.9 Active 665009315 Problem Obstructive sleep apnea syndrome G47.33 Active 20810649 Problem Chronic obstructive pulmonary disease, unspecified J44.9 Active 01784980 Problem Insomnia G47.00 Active 138824121 Problem Shortness of breath R06.02 Active 333919347 Problem Low back pain M54.5 Active 206370860 Problem Anxiety F41.9 Active 12377685 ALLERGIES Unknown Allergies SOCIAL HISTORY No smoking Hx information available PLAN OF CARE VITAL SIGNS MEDICATIONS Medication Instructions Dosage Frequency Start Date End Date Duration Status Albuterol Sulfate (2.5 MG/3ML) 0.083% Inhalation every 4 hrs 1 vial in nebuizer as needed for cough or wheeze 4h Active RESULTS No Results PROCEDURES No Known procedures IMMUNIZATIONS No Known Immunizations
--- OUTSIDE RECORDS SUMMARY | 2017-03-22 09:32 | XMS REPORT ---
Author Author JENNIFER FERRELL [facility] Address [address] [place] [address] Care Team Providers Care International Marketing Manager Name Role Phone JENNIFER FERRELL Unavailable PROBLEMS Type Condition ICD9-CM Code AAA57-RV Code Onset Dates Condition Status SNOMED Code Problem Dysthymia F34.1 Active 71989841 Problem Primary insomnia F51.01 Active 6548135 Problem Mild intermittent asthma without complication J45.20 Active 738366800 Problem Gastroesophageal reflux disease without esophagitis K21.9 Active 504999524 Problem Obstructive sleep apnea syndrome G47.33 Active 50631835 Problem Chronic obstructive pulmonary disease, unspecified J44.9 Active 26673643 Problem Insomnia G47.00 Active 863507174 Problem Shortness of breath R06.02 Active 798646769 Problem Low back pain M54.5 Active 795140340 Problem Anxiety F41.9 Active 48115440 ALLERGIES Unknown Allergies SOCIAL HISTORY No smoking Hx information available PLAN OF CARE VITAL SIGNS MEDICATIONS Medication Instructions Dosage Frequency Start Date End Date Duration Status Xanax 1 MG Orally 2 times a day 1 tablet 12h 30 Jul, 2014 28 days Active Hydrocodone-Acetaminophen 10-325 MG Orally Once a day 1 tablet 24h 21 Apr, 2016 28 days Active RESULTS No Results PROCEDURES No Known procedures IMMUNIZATIONS No Known Immunizations
--- OUTSIDE RECORDS SUMMARY | 2017-03-22 09:32 | XMS REPORT ---
Author Author JENNIFER FERRELL [facility] eClinicalWorks Address Unknown Phone Unavailable Care Team Providers Care Ropewalk Rope Maker Name Role Phone JENNIFER FERRELL CP Unavailable [...] Start Date End Date Status Dosage Ambien [facility] [address]-69 10 mg Orally Once a day as needed 1 tablet at bedtime Brovana [facility] [address]-51 15 MCG/2ML Inhalation Twice a day 1 vial in nebulizer PredniSONE [facility] [address]-95 20 mg Orally Once a day Feb 23, 2016 3 tablets daily X 4 days, 3 tabs daily X 3 days, 2 tabs daily X 2 days, 1 tab x 1 day and stop Lisinopril [facility] [address]-98 40 MG Orally TAKE ONE TABLET BY MOUTH EVERY MORNING Albuterol Sulfate [facility] [address]-40 (2.5 MG/3ML) 0.083% Inhalation every 4 hrs 1 vial in nebuizer as needed for cough or wheeze ProAir HFA [facility] [address]-78 108 (90 Base) MCG/ACT Inhalation every 4 hrs 2 puffs as needed for short of breath or wheeze Xanax [facility] [address]-06 1 MG Orally 2 times a day August 04, 2014 1 tablet Transderm-Scop [facility] [address]-00 1 MG/3DAYS Transdermal every 3 days Mar apply 1 patch as directed Hydrocodone-Acetaminophen [facility] [address]-24 10-325 MG Orally Once a day August 04, 2014 1 tablet Budesonide [facility] [address]-65 0.5 MG/2ML Inhalation Twice a day 1 vial in nebulizer Results No Known Results Summary Purpose eClinicalWorks Submission
--- OUTSIDE RECORDS SUMMARY | 2017-03-22 09:32 | XMS REPORT ---
Author Author JENNIFER FERRELL [facility] Address [address] [place] [address] Care Team Providers Care Client Server Developer Name Role Phone JENNIFER FERRELL Unavailable PROBLEMS Type Condition ICD9-CM Code ZAM27-UF Code Onset Dates Condition Status SNOMED Code Problem Gastroesophageal reflux disease without esophagitis K21.9 Active 273724124 Problem Mild intermittent asthma without complication J45.20 Active 546214430 Problem Dysthymia F34.1 Active 80760002 Problem Primary insomnia F51.01 Active 2771329 Problem Obstructive sleep apnea syndrome G47.33 Active 61011152 Problem Chronic obstructive pulmonary disease, unspecified J44.9 Active 69294121 Problem Insomnia G47.00 Active 217822793 Problem Shortness of breath R06.02 Active 235522808 Problem Low back pain M54.5 Active 185437773 Problem Anxiety F41.9 Active 76415006 ALLERGIES No Information SOCIAL HISTORY Never Assessed PLAN OF CARE VITAL SIGNS MEDICATIONS Medication Instructions Dosage Frequency Start Date End Date Duration Status Hydrocodone-Acetaminophen 10-325 MG Orally Once a day 1 tablet 24h 23 Jun, 2016 28 days Active Xanax 1 MG [...]
--- OUTSIDE RECORDS SUMMARY | 2017-03-22 09:34 | XMS REPORT ---
Author Author JENNIFER FERRELL Organization [employer] Address Unknown Phone Unavailable Care Team Providers Care Orthopedic Physician Name Role Phone JENNIFER FERRELL CP Unavailable Allergies No Known Allergies Problems Problem Type Condition Code Onset Dates Condition Status Problem Other malaise and fatigue 780.79 Active Assessment Chronic obstructive pulmonary disease, unspecified J44.9 Active Problem Hypoxemia 799.02 Active Problem Pain in joint, pelvic region and thigh 719.45 Active Problem Unspecified constipation 564.00 Active Problem Unspecified prostatitis 601.9 Active Problem Asthma, unspecified, with (acute) exacerbation 493.92 Active Problem Chronic obstructive pulmonary disease, unspecified J44.9 Active Problem Low back pain M54.5 Active Problem Lumbago 724.2 Active Problem Insomnia, unspecified 780.52 Active Problem Obstructive sleep apnea syndrome G47.33 Active Problem Obesity, unspecified 278.00 Active Problem Shortness of breath R06.02 Active Problem Persistent disorder of 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.42 Active Problem Anxiety F41.9 Active Problem Insomnia G47.00 Active Problem Esophageal reflux 530.81 Active Problem Dysthymic disorder 300.4 Active Problem Blood in stool 578.1 Active Problem Diarrhea 787.91 Active Problem Polyuria 788.42 Active Problem Enthesopathy of unspecified site 726.90 Active Problem Injury of face and neck, other and unspecified 959.09 Active Problem Open wound of hand except finger(s) alone, without mention of complication 882.0 Active Medications Medication Code System Code Instructions Start Date End Date Status Dosage Brovana [facility] [address]-55 15 MCG/2ML Inhalation Twice a day 1 vial in nebulizer Budesonide [facility] [address]-94 0.5 MG/2ML Inhalation Twice a day 1 vial in nebulizer Results No Known Results Summary Purpose [employer] Submission
--- OUTSIDE RECORDS SUMMARY | 2017-03-22 09:34 | XMS REPORT ---
Author Author JENNIFER FERRELL Organization [employer] Address Unknown Phone Unavailable Care Team Providers Care Software Development Specialist Name Role Phone JENNIFER FERRELL CP [...] Start Date End Date Status Dosage ProAir HFA [facility] [address]-12 108 (90 Base) MCG/ACT Inhalation every 4 hrs 2 puffs as needed for short of breath or wheeze Results No Known Results Summary Purpose [employer] Submission
--- OUTSIDE RECORDS SUMMARY | 2017-03-22 09:34 | XMS REPORT ---
Author Author JENNIFER FERRELL Organization [employer] Address Unknown Phone Unavailable Care Team Providers Care Classification Officer Name Role Phone JENNIFER FERRELL CP Unavailable [...] Date End Date Status Dosage ProAir HFA [facility] [address]-00 108 (90 Base) MCG/ACT Inhalation every 4 hrs 2 puffs as needed for short of breath or wheeze Results No Known Results Summary Purpose [employer] Submission
--- OUTSIDE RECORDS SUMMARY | 2017-03-22 09:34 | XMS REPORT ---
Author Author JENNIFER FERRELL Organization [employer] Address Unknown Phone Unavailable Care Team Providers Care Steam Table Associate Name Role Phone JENNIFER FERRELL CP Unavailable [...]
--- OUTSIDE RECORDS SUMMARY | 2017-03-22 09:34 | XMS REPORT ---
Author Author JENNIFER FERRELL Organization [employer] Address Unknown Phone Unavailable Care Team Providers Care Lamp Wirer Name Role Phone JENNIFER FERRELL CP Unavailable [...]
--- OUTSIDE RECORDS SUMMARY | 2017-03-22 09:34 | XMS REPORT ---
Author Author JENNIFER FERRELL [facility] Address [address] [place] [address] Care Team Providers Care Accelerator Systems Director Name Role Phone JENNIFER FERRELL Unavailable PROBLEMS Type Condition ICD9-CM Code GPN75-SI Code Onset Dates Condition Status SNOMED Code Problem Gastroesophageal reflux disease without esophagitis K21.9 Active 451332321 Problem Mild intermittent asthma without complication J45.20 Active 174313335 Problem Dysthymia F34.1 Active 89630421 Problem Primary insomnia F51.01 Active 1820929 Problem Obstructive sleep apnea syndrome G47.33 Active 21206805 Problem Chronic obstructive pulmonary disease, unspecified J44.9 Active 89982330 Problem Insomnia G47.00 Active 185653775 Problem Shortness of breath R06.02 Active 270557579 Problem Low back pain M54.5 Active 242421293 Problem Anxiety F41.9 Active 16421437 ALLERGIES No Information SOCIAL HISTORY Never Assessed PLAN OF CARE VITAL SIGNS MEDICATIONS Unknown [...]
--- OUTSIDE RECORDS SUMMARY | 2017-03-22 09:34 | XMS REPORT ---
Author Author JENNIFER FERRELL Organization [employer] Address Unknown Phone Unavailable Care Team Providers Care Roll Grinder Operator Name Role Phone JENNIFER FERRELL CP Unavailable [...] Start Date End Date Status Dosage Transderm-Scop [facility] [address]-72 1 MG/3DAYS Transdermal Mar 16, 2015 as directed Results No Known Results Summary Purpose [employer] Submission
--- OUTSIDE RECORDS SUMMARY | 2017-03-22 09:34 | XMS REPORT ---
Author Author JENNIFER FERRELL Organization [facility] Address [address] [place] [address] Care Team Providers Care Elastic Attacher Chainstitch Name Role Phone JENNIFER FERRELL Unavailable PROBLEMS Type Condition ICD9-CM Code QSC35-AM Code Onset Dates Condition Status SNOMED Code Problem Gastroesophageal reflux disease without esophagitis K21.9 Active 458469700 Problem Mild intermittent asthma without complication J45.20 Active 810662331 Problem Dysthymia F34.1 Active 22855758 Problem Primary insomnia F51.01 Active 3793513 Problem Obstructive sleep apnea syndrome G47.33 Active 33921180 Problem Chronic obstructive pulmonary disease, unspecified J44.9 Active 43093900 Problem Insomnia G47.00 Active 795675096 Problem Shortness of breath R06.02 Active 406365791 Problem Low back pain M54.5 Active 836231960 Problem Anxiety F41.9 Active 38961618 ALLERGIES No Information SOCIAL HISTORY Never Assessed PLAN OF CARE VITAL SIGNS MEDICATIONS Medication Instructions Dosage Frequency Start Date End Date Duration Status Xanax 1 MG Orally 2 times a day 1 tablet 12h 30 Jul, 2014 28 days Active Hydrocodone-Acetaminophen 10-325 MG Orally Once a day 1 tablet 24h 22 Jul, 2016 28 days Active RESULTS No Results [...]
--- OUTSIDE RECORDS SUMMARY | 2017-03-22 09:34 | XMS REPORT ---
Author Author JENNIFER FERRELL [facility] Address [address] [place] [address] Care Team Providers Care Principal Secretary Name Role Phone JENNIFER FERRELL Unavailable PROBLEMS Type Condition ICD9-CM Code QOS17-VL Code Onset Dates Condition Status SNOMED Code Problem Shortness of breath R06.02 Active 486050702 Problem Anxiety F41.9 Active 55904469 Problem Insomnia G47.00 Active 836028107 Problem Primary insomnia F51.01 Active 8930592 Problem Mild intermittent asthma without complication J45.20 Active 938540250 Problem Gastroesophageal reflux disease without esophagitis K21.9 Active 010875987 Problem Dysthymia F34.1 Active 02090635 Problem Other emphysema J43.8 Active 70976015 Problem Other obesity due to excess calories E66.09 Active 56724375720090 Problem Chronic obstructive pulmonary disease, unspecified J44.9 Active 16873301 Problem Low back pain M54.5 Active 753378538 Problem Body mass index (BMI) of 50-59.9 in adult Z68.43 Active 760910704 Problem Obstructive sleep apnea syndrome G47.33 Active 00615460 ALLERGIES No Known Allergies SOCIAL HISTORY Never Assessed PLAN OF CARE Activity Details Follow Up annually for preventive care, sooner for chronic health maintenance Reason: VITAL SIGNS Height 70 in 2016-08-17 Weight 355 lbs 2016-08-17 Temperature 98.0 degrees Fahrenheit 2016-08-17 Heart Rate 72 bpm 2016-08-17 Respiratory Rate 24 2016-08-17 BMI 50.93 kg/m2 2016-08-17 Blood pressure systolic 130 mmHg 2016-08-17 Blood pressure diastolic 88 mmHg 2016-08-17 MEDICATIONS Medication Instructions Dosage Frequency Start Date End Date Duration Status Brovana 15 MCG/2ML Inhalation Twice a day 1 vial in nebulizer 12h Active Ambien 10 mg Orally Once a day as needed 1 tablet at bedtime Active Albuterol Sulfate (2.5 MG/3ML) 0.083% Inhalation every 4 hrs 1 vial in nebuizer as needed for cough or wheeze 4h Active Lisinopril 40 MG Orally Once a day 1 tablet 24h 90 days Active Advair Diskus 250-50 MCG/DOSE Inhalation Twice a day 1 puff 12h 25 Aug, 2015 90 days Active Budesonide 0.5 MG/2ML Inhalation Twice a day 1 vial in nebulizer 12h Active Hydrocodone-Acetaminophen 10-325 MG Orally Once a day 1 tablet 24h 22 Jul, 2016 28 days Active Transderm-Scop 1 MG/3DAYS Transdermal every 3 days apply 1 patch as directed Mar, Active Xanax 1 MG Orally 2 times a day 1 tablet 12h 30 Jul, 2014 28 days Active ProAir HFA 108 (90 Base) MCG/ACT Inhalation every 4 hrs 2 puffs as needed for short of breath or wheeze 4h 90 Active RESULTS Name Result Date Reference Range PSA, FREE AND TOTAL 2016-08-17 Prostate Specific Ag, Serum 1.4 0.0-4.0 PSA, Free 0.25 N/A % Free PSA 17.9 LIPID PANEL 2016-08-17 Cholesterol, Total 183 100-199 Triglycerides 55 0-149 HDL Cholesterol 66 >39 VLDL Cholesterol Jimi 11 5-40 LDL Cholesterol Calc 106 0-99 CMP 2016-08-17 Glucose, Serum 101 65-99 BUN 20 8-27 Creatinine, Serum 1.00 0.76-1.27 eGFR If NonAfricn Am 78 >59 eGFR If Africn Am 90 >59 BUN/Creatinine Ratio 20 10-24 Sodium, Serum 142 134-144 Potassium, Serum 4.9 3.5-5.2 Chloride, Serum 101 96-106 Carbon Dioxide, Total 24 18-29 Calcium, Serum 9.1 8.6-10.2 Protein, Total, Serum 6.3 6.0-8.5 Albumin, Serum 4.0 3.6-4.8 Globulin, Total 2.3 1.5-4.5 A/G Ratio 1.7 1.2-2.2 Bilirubin, Total 0.5 0.0-1.2 Alkaline Phosphatase, S 77 39-117 AST (SGOT) 14 0-40 ALT (SGPT) 11 0-44 CT Scan : Chest, low dose (Screening) 2016-08-24 PROCEDURES Procedure Date Ordered Result Body Site INIT PREV PE LTD DUR 12 MOS MCR August 17, 2016 [facility] August 17, 2016 VENIPUNCT, ROUTINE* August 17, 2016 IMMUNIZATIONS No Known Immunizations MEDICAL (GENERAL) HISTORY [...]
--- OUTSIDE RECORDS SUMMARY | 2017-03-22 09:35 | XMS REPORT ---
Author Author JENNIFER FERRELL [facility] Address [address] [place] [address] Care Team Providers Care Cardiology Specialist Name Role Phone JENNIFER FERRELL Unavailable PROBLEMS Type Condition ICD9-CM Code RBC51-DJ Code Onset Dates Condition Status SNOMED Code Problem Gastroesophageal reflux disease without esophagitis K21.9 Active 376470141 Problem Mild intermittent asthma without complication J45.20 Active 644569540 Problem Dysthymia F34.1 Active 71361111 Problem Primary insomnia F51.01 Active 0234686 Problem Obstructive sleep apnea syndrome G47.33 Active 57870175 Problem Chronic obstructive pulmonary disease, unspecified J44.9 Active 76388018 Problem Insomnia G47.00 Active 221122462 Problem Shortness of breath R06.02 Active 525846472 Problem Low back pain M54.5 Active 874518100 Problem Anxiety F41.9 Active 55181633 ALLERGIES No Known Allergies SOCIAL HISTORY No smoking Hx information available PLAN OF CARE VITAL SIGNS MEDICATIONS No Known Medications RESULTS No Results PROCEDURES No Known procedures IMMUNIZATIONS No Known Immunizations
--- OUTSIDE RECORDS SUMMARY | 2017-03-22 09:35 | XMS REPORT ---
Author Author JENNIFER FERRELL Organization [employer] Address Unknown Phone Unavailable Care Team Providers Care Pinsetter Mechanic Automatic Name Role Phone JENNIFER FERRELL CP Unavailable [...] Start Date End Date Status Dosage Ambien [facility] [address]-48 5 MG Orally Once a day as needed August 04, 2015 1 tablet at bedtime Xanax [facility] [address]-70 1 MG August 04, 2014 1 tablet by Oral route 2 times per day Hydrocodone-Acetaminophen [facility] [address]-33 10-325 MG August 04, 2014 1 tablet by Oral route 1 time per day PRN at hs Results No Known Results Summary Purpose [employer]ClinicalWorks Submission
--- OUTSIDE RECORDS SUMMARY | 2017-03-22 09:36 | XMS REPORT ---
Author Author JENNIFER FERRELL Organization [employer] Address Unknown Phone Unavailable Care Team Providers Care Wafer Line Worker Name Role Phone JENNIFER FERRELL CP Unavailable [...]
--- OUTSIDE RECORDS SUMMARY | 2017-03-22 09:36 | XMS REPORT ---
Author Author JENNIFER FERRELL [facility] Address [address] [place] [address] Care Team Providers Care Motion Picture Film Examiner Name Role Phone JENNIFER FERRELL Unavailable PROBLEMS Type Condition ICD9-CM Code EHX16-TR Code Onset Dates Condition Status SNOMED Code Problem Gastroesophageal reflux disease without esophagitis K21.9 Active 067763228 Problem Mild intermittent asthma without complication J45.20 Active 740502285 Problem Dysthymia F34.1 Active 73791951 Problem Primary insomnia F51.01 Active 0312980 Problem Obstructive sleep apnea syndrome G47.33 Active 30816406 Problem Chronic obstructive pulmonary disease, unspecified J44.9 Active 56255471 Problem Insomnia G47.00 Active 382539858 Problem Shortness of breath R06.02 Active 746650600 Problem Low back pain M54.5 Active 782790942 Problem Anxiety F41.9 Active 53994181 ALLERGIES No Information SOCIAL HISTORY Never Assessed PLAN OF CARE VITAL SIGNS MEDICATIONS Medication Instructions Dosage Frequency Start Date End Date Duration Status Advair Diskus 250-50 MCG/DOSE Inhalation Twice a day 1 puff 12h 25 Aug, 2015 90 days Active RESULTS No Results PROCEDURES [...]
--- OUTSIDE RECORDS SUMMARY | 2017-03-22 09:36 | XMS REPORT ---
Author Author JENNIFER FERRELL [facility] Address [address] [place] [address] Care Team Providers Care Meat Passer Name Role Phone JENNIFER FERRELL Unavailable PROBLEMS Type Condition ICD9-CM Code GIB69-DS Code Onset Dates Condition Status SNOMED Code Problem Unspecified constipation 564.00 Active 60663617 Problem Unspecified prostatitis 601.9 Active 7200259 Problem Asthma, unspecified, with (acute) exacerbation 493.92 Active 789131553 Problem Chronic obstructive pulmonary disease, unspecified J44.9 Active 58999946 Problem Lumbago 724.2 Active 834194413 Problem Low back pain M54.5 Active 300753052 Problem Insomnia, unspecified 780.52 Active 875229977 Problem Obesity, unspecified 278.00 Active 316588295 Problem Shortness of breath R06.02 Active 296629070 Problem Persistent disorder of 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.42 Active 13117058 Problem Anxiety F41.9 Active 75367095 Problem Insomnia G47.00 Active 681488742 Problem Esophageal reflux 530.81 Active 464735011 Problem Dysthymic disorder 300.4 Active 98796052 Problem Blood in stool 578.1 Active 826463201 Problem Diarrhea 787.91 Active 33773658 Problem Polyuria 788.42 Active 92868342 Problem Enthesopathy of unspecified site 726.90 Active 22826572 Problem Injury of face and neck, other and unspecified 959.09 Active 54830197 Problem Other malaise and fatigue 780.79 Active 884984282 Problem Pain in joint, pelvic region and thigh 719.45 Active 831457462 Problem Open wound of hand except finger(s) alone, without mention of complication 882.0 Active 93758843 Problem Hypoxemia 799.02 Active 594883067 ALLERGIES No Known Allergies SOCIAL HISTORY No smoking Hx information available PLAN OF CARE VITAL SIGNS MEDICATIONS Medication Instructions Dosage Frequency Start Date End Date Duration Status Xanax 1 MG Orally 2 times a day 1 tablet 12h 30 Jul, 2014 28 days Active RESULTS No Results PROCEDURES No Known procedures IMMUNIZATIONS No Known Immunizations
--- OUTSIDE RECORDS SUMMARY | 2017-03-22 09:36 | XMS REPORT ---
Author Author JENNIFER FERRELL [facility] Address [address] [place] [address] Care Team Providers Care Playground Aide Name Role Phone JENNIFER FERRELL Unavailable PROBLEMS Type Condition ICD9-CM Code TLT80-NF Code Onset Dates Condition Status SNOMED Code Problem Dysthymia F34.1 Active 18898572 Problem Primary insomnia F51.01 Active 3692965 Problem Mild intermittent asthma without complication J45.20 Active 712948154 Problem Gastroesophageal reflux disease without esophagitis K21.9 Active 062167651 Problem Obstructive sleep apnea syndrome G47.33 Active 43678252 Problem Chronic obstructive pulmonary disease, unspecified J44.9 Active 80170694 Problem Insomnia G47.00 Active 042999103 Problem Shortness of breath R06.02 Active 610406268 Problem Low back pain M54.5 Active 711018914 Problem Anxiety F41.9 Active 65832062 ALLERGIES Unknown Allergies SOCIAL HISTORY No smoking [...]
--- NOTE | 2017-03-22 09:52 | Progress Note-Pre Operative ---
Pre-Operative Progress Note H&P Reviewed The H&P was reviewed, patient examined and no changes noted. Date Seen by Provider: Mar 22, 2017 Time Seen by Provider: 09:52 Date H&P Reviewed: Mar 22, 2017 Time H&P Reviewed: 09:52 Pre-Operative Diagnosis: right shoulder SLAP tear KATE STUART MD Mar 22, 2017 09:52
--- NOTE | 2017-03-22 09:53 | Progress Note-Post Operative ---
Post-Operative Progess Note Surgeon (s)/Mobile Qa Tester (s) Surgeon KATE STUART MD Mobile Qa Tester: natty Wilcox Pre-Operative Diagnosis right shoulder SLAP tear and impingement Post-Operative Diagnosis right shoulder SLAP tear, impingement and labral tear Procedure & Operative Findings Date of Procedure 03/22/17 Procedure Performed/Findings right shoulder arthroscopic biceps tenotomy, labral debridement and acromioplasty Anesthesia Type GETA Estimated Blood Loss Estimated blood loss (mL): minimal Specimens/Packing Specimens Removed none Packing: none KATE STUART MD Mar 22, 2017 09:53
[2017-03-22] MEDS ORDERED: fentaNYL INJECTION 100 MCG/2 ML AMP ONE (10:20)
[2017-03-22] MEDS ORDERED: LIDOCAINE PF 2% 5 ML (XYLOCAINE) VIAL ONE (10:20)
[2017-03-22] MEDS ORDERED: proPOfol 200 MG/20 ML (DIPRIVAN) VIAL IV ONE (10:20)
[2017-03-22] MEDS ORDERED: DEXAMETHASONE 10 MG/ML (DECADRON) 1 ML VIAL ONE (10:20)
[2017-03-22] MEDS ORDERED: SEVOFLURANE (ULTANE) 15 ML INHAL SOLN ONE ×2 (10:20→12:43)
[2017-03-22] MEDS ORDERED: ROCURONIUM 50 MG/5 ML (ZEMURON) VIAL IV ONE (10:20)
[2017-03-22] MEDS ORDERED: ONDANSETRON 4 MG/2 ML (SDV) Z0FRAN ONE (10:20)
[2017-03-22] MEDS ORDERED: BUPIVACAINE 0.25% 30 ML (SENSORCAINE) VIAL ONE (10:21)
[2017-03-22] MEDS ORDERED: MIDAZOLAM 2 MG/2 ML (VERSED) VIAL ONE (10:21)
[2017-03-22] MEDS ORDERED: morphine PF (DURAMORPH) 10 MG/10 ML AMP ONE (10:22)
[2017-03-22] MEDS ORDERED: LACTATED RINGERS 1,000 ML IV PRN (10:23)
[2017-03-22] MEDS ORDERED: oxyCODONE/APAP 5/325MG (PERCOCET 5) TABLET PO PRN (10:30)
[2017-03-22] MEDS ORDERED: GLYCOPYRROLATE 0.2 MG/ML (ROBINUL) 2 ML VIAL ONE (12:42)
[2017-03-22] MEDS ORDERED: NEOSTIGMINE (BLOXIVERZ ) 1 MG/1ML 10 ML VIAL ONE (12:42)
[2017-03-22] MEDS ORDERED: HYDROmorphone (DILAUDID) 2 MG/ML VIAL IVP PRN (13:00)
[2017-03-22] MEDS: morphine INJ 10 MG/ML 1ML (SYR OR VIAL) IVP PRN ×2 (13:00→13:05)
[2017-03-22] MEDS ORDERED: ONDANSETRON 4 MG/2 ML (SDV) Z0FRAN IVP PRN (13:00)
[2017-03-22 13:40] VITALS: BP 126/97
[2017-03-22 14:20] VITALS: BP 127/90
--- NOTE | 2017-03-22 14:38 | OPERATIVE REPORT ---
DATE OF SERVICE: 03/22/2017 PREOPERATIVE DIAGNOSES: 1. Right shoulder SLAP tear. 2. Right shoulder impingement. POSTOPERATIVE DIAGNOSES: 1. Right shoulder SLAP tear. 2. Right shoulder impingement. 3. Right shoulder labral tear. PROCEDURES: 1. Right shoulder arthroscopic biceps tenotomy. 2. Right shoulder arthroscopic labral debridement. 3. Right shoulder arthroscopic acromioplasty. SURGEON: Fuentes Stuart MD VALIDATION ENGINEER: Mane Wilcox, who assisted throughout the procedure and closed the incisions. ANESTHESIA: General endotracheal by Dr. Vasquez. ESTIMATED BLOOD LOSS: Minimal. DRAINS: None. COMPLICATIONS: None. POSTOPERATIVE PLAN: Routine protocol. The patient transferred to recovery room awake and in stable condition. STATEMENT OF MEDICAL NECESSITY: The patient is a 66-year-old right hand dominant gentleman with complaints of right shoulder pain, worse with overhead activities. He had undergone treatment injections without relief. FINDINGS: Consistent with impingement, but no rotator cuff tearing. In addition, he had a type 2 SLAP tear and due to functional impairment and failure to improve with conservative treatment, the patient elected to proceed with surgical intervention. Examination under anesthesia revealed forward elevation of 160 degrees, external rotation of 80 degrees, and internal rotation of 70 degrees. Arthroscopic findings demonstrated type 2 SLAP tear. There was a flap tear of the anterior labrum at the 3 o'clock position as well. No significant glenoid or humeral head articular abnormalities were noted. The rotator cuff insertion was intact throughout the subacromial space. Subacromial space demonstrated moderate bursitis with sloping of the anterolateral acromion. PROCEDURES: After risks and benefits of procedure were discussed and questions were answered, informed consent was signed and placed on chart. The operative site was confirmed and the preoperatively initialed by the surgeon. The patient transferred to the operating room. After adequate levels of general endotracheal anesthetic were obtained, a timeout was called confirming the operative site. Examination under anesthesia was performed with the above findings noted. The right shoulder and upper extremity prepped and draped in the usual sterile fashion. Shoulder joint was injected with 20 mL of fluid as was the subacromial space. A posterior portal was placed under direct visualization. An anterior portal was created in the interval between the biceps, subscapularis, and glenoid. The biceps anchor was released and the stump was debrided with the shaver. The anterior labral flap was debrided with the shaver as well. The scope was then redirected into the subacromial space and a lateral portal was created. Bursectomy was performed and the acromion was planed to a flat type-1 acromion. The portal sites were closed with 4 nylon in simple interrupted fashion. Shoulder was injected with Duramorph. Portal sites were infiltrated with plain Marcaine. A soft dressing was applied, and the patient was transferred to the recovery room awake and in stable condition. Job ID: [id number] DocumentID: [id number] Dictated Date: 03/22/2017 12:33:45 Door Clamp Operator Date: 03/22/2017 14:38:36 Dictated By: FUENTES STUART MD
[2017-03-22] MEDS ORDERED: OXYC-197 PO (14:53)
[2017-03-22 15:15] VITALS: BP 122/76
[2017-03-22 15:30] VITALS: BP 122/76
== END 2017-03-22 15:30 | disposition home or self-care (01) ==
LOC: SDC 09:14
PROVIDERS: ATTEND Orthopaedic Surgery
DX: S43.431A Superior glenoid labrum lesion of right shoulder, initial encounter (principal); M75.41 Impingement syndrome of right shoulder; Z96.643 Presence of artificial hip joint, bilateral; J44.9 Chronic obstructive pulmonary disease, unspecified; I10 Essential (primary) hypertension; Z82.49 Family history of ischemic heart disease and other diseases of the circulatory system; Z79.899 Other long term (current) drug therapy; G47.33 Obstructive sleep apnea (adult) (pediatric); E66.01 Morbid (severe) obesity due to excess calories; Z68.43 Body mass index [BMI] 50.0-59.9, adult

== ENCOUNTER 2017-10-24 11:47 | Outpatient (CLI) | payer MEDICARE ==
[~2017-10-24] VITALS: Ht 177.8 cm; Wt 161.0 kg
[~2017-10-24 11:47] MED LIST changes: +OXYC-197 PO
[2017-10-24 11:53] VITALS: BP 140/79
== END 2017-10-24 12:07 | disposition home or self-care (01) ==
LOC: PREOP 11:47
PROVIDERS: ATTEND Orthopaedic Surgery
DX: Z01.818 Encounter for other preprocedural examination (principal)
CPT/HCPCS: 87081

== ENCOUNTER 2018-04-04 13:48 | Inpatient (IN) | payer MEDICARE ==
[~2018-04-04] VITALS: Ht 175.3 cm; Wt 155.3 kg
[~2018-04-04 13:48] MED LIST changes: +ALBU2.5V4 NEB; +ALPR1TAB7 PO; -ARFO15VI3 IH; +ARFO15VI3 NEB; +BUDE0.5A NEB; +HYDR-3816 PO; +LEVO750T39 PO; -OXYC-197 PO; +OXYC1TAB87 PO
--- OUTSIDE RECORDS SUMMARY | 2018-04-04 14:18 | XMS REPORT ---
Author Author JENNIFER FERRELL Organization [facility] Address [address] [place] [address] Care Team Providers Care Spray Painter Name Role Phone JENNIFER FERRELL Unavailable PROBLEMS Type Condition ICD9-CM Code IDU95-EQ Code Onset Dates Condition Status SNOMED Code Problem Obstructive sleep apnea syndrome G47.33 Active 89530457 Problem Other obesity due to excess calories E66.09 Active 98969323059460 Problem Body mass index (BMI) of 50-59.9 in adult Z68.43 Active 096213973 Problem Other chronic pain G89.29 Active 09791778 Problem Essential hypertension I10 Active 31398670 Problem Chronic obstructive pulmonary disease with (acute) exacerbation J44.1 Active 645146523 Problem Other emphysema J43.8 Active 79830934 Problem Thrombocytopenia D69.6 Active 922172641 Problem Acute exacerbation of chronic obstructive pulmonary disease (COPD) J44.1 Active 012066285 Problem Gastroesophageal reflux disease without esophagitis K21.9 Active 840709176 Problem Dysthymia F34.1 Active 15368638 Problem Mild intermittent asthma without complication J45.20 Active 703595313 Problem Insomnia G47.00 Active 208349331 Problem Anxiety F41.9 Active 59819913 Problem Primary insomnia F51.01 Active 1265809 Problem Low back pain M54.5 Active 908281634 Problem Shortness of breath R06.02 Active 242746899 Problem Chronic obstructive pulmonary disease, unspecified J44.9 Active 39353618 ALLERGIES No Information ENCOUNTERS Encounter Location Date Diagnosis [facility] [id number] [address] Mar, Primary insomnia F51.01 [facility] [id number] [address] Feb, Pain in right knee M25.561 [facility] [id number] [place] [address] 29256- 8638 Feb, Status post bariatric surgery Z98.84 ; Chronic obstructive pulmonary disease, unspecified J44.9 ; Pain in right knee M25.561 ; Pain in left knee M25.562 ; Other chronic pain G89.29 ; Encounter for immunization Z23 and BMI 45.0-49.9, adult Z68.42 [place] [address] [address]- [address] Feb, Primary insomnia F51.01 [place] [address] [address]- 5813 Jan, Anxiety F41.9 and Primary insomnia F51.01 [place] [id number] [place] [address] 29972- 3046 Dec, Anxiety F41.9 ; Primary insomnia F51.01 ; Low back pain M54.5 ; BMI 50.0-59.9, adult Z68.43 ; Shortness of breath R06.02 and Essential hypertension I10 [place] [address] 95874- 6687 Dec, Low back pain M54.5 and Primary insomnia F51.01 [place] [id number] [place] [address] 90396- 4028 Dec, [place] [id number] [place] [address] 36667- 6473 Nov, Acute exacerbation of chronic obstructive pulmonary disease (COPD) J44.1 ; Primary insomnia F51.01 and Low back pain M54.5 [place] [id number] [place] [address] 06573- 5780 September, BMI 50.0-59.9, adult Z68.43 and Chronic obstructive pulmonary disease, unspecified COPD type J44.9 [place] [id number] [place] [address] 06029- 5817 Aug, Chronic obstructive pulmonary disease, unspecified J44.9 ; Primary insomnia F51.01 ; Low back pain M54.5 and BMI 50.0-59.9, adult Z68.43 [facility] [address] [address]- [address] 16 Aug, 2017 Shortness of breath R06.02 ; Loose stools R19.5 and BMI 50.0 -59.9, adult Z68.43 [place] [address] 47155- 5913 Aug, Acute renal injury N17.9 and Thrombocytopenia D69.6 [facility] [address] 76044- 8582 May, [place] [address] 90097- 8635 Apr, [facility] [address] [address] -[address]14 Mar, Acute exacerbation of chronic obstructive pulmonary disease (COPD) J44.1 ; BMI 50.0-59.9, adult Z68.43 and BMI 60.0-69.9, adult Z68.44 [place] [address] 70635- 2175 Mar, [place] [address] 31620- 3502 18 Feb, 2017 Right anterior shoulder pain M25.511 ; Encounter for immunization Z23 ; Other emphysema J43.8 ; Other obesity due to excess calories E66.09 ; Body mass index (BMI) of 50-59.9 in adult Z68.43 and Low back pain M54.5 [place] [address] 69835- 7796 Feb, [facility] [address] 7[address]69- 3714 04 Feb, 2017 Low back pain M54.5 [place] [address] 72744- 8137 07 Jan, 2017 [facility] [address] [address] 5817 Jan, Low back pain M54.5 [facility] [address] [address] 3823 Dec, Shortness of breath R06.02 [facility] [address] [place] [address] 90347- 7624 Dec, Low back pain M54.5 [facility] [id number] [place] [address] 03228- 8226 Nov, Low back pain M54.5 [facility] [id number] [place] [address] 58669- 3623 Oct, [facility] [id number] [place] [address] 70419- 6961 Oct, Low back pain M54.5 [facility] [id number] [place] [address] 04023- 7423 September, Low back pain M54.5 [facility] [address] [place] [address] 10889 -0943 September, Sore throat J02.9 and Strep throat J02.0 [facility] [address] [address] 0761 September, [facility] [address] [place] [address] 30565- 1543 Aug, Low back pain M54.5 [facility] [address] [address] 5488 Aug, Medicare welcome exam Z00.00 ; Prostate cancer screening Z12.5 ; Encounter for screening for lung cancer Z12.2 and Lipid screening Z13.220 [facility] [address] [address]- 8586 Jul, [facility] [id number] [place] [address] 46812- 6996 Jul, Low back pain M54.5 [facility] [id number] [place] [address] 65481- 9745 Jul, [facility] [id number] [place] [address] 24901- 4009 Jun, [facility] [id number] [place] [address] 82259- 7091 Jun, Anxiety F41.9 and Low back pain M54.5 [facility] [id number] [place] [address] 26636- 8641 Jun, Shortness of breath R06.02 [facility] [id number] [place] [address] 59646- 6755 May, Anxiety F41.9 and Low back pain M54.5 [facility] [id number] [place] [address] 48675- 1893 May, [facility] [id number] [place] [address] 76808- 6300 Apr, [facility] [id number] [place] [address] 70302- 8533 Apr, Chronic obstructive pulmonary disease, unspecified J44.9 [facility] [id number] [place] [address] 78466- 0097 Apr, [facility] [id number] [place] [address] 81951- 7059 Apr, Chronic obstructive pulmonary disease, unspecified J44.9 [facility] [id number] [place] [address] 77926- 0822 Apr, [facility] [id number] [place] [address] 76559- 3319 Apr, Anxiety F41.9 and Low back pain M54.5 [facility] [id number] [place] [address] 60183- 9285 Mar, Encounter for immunization Z23 ; Obstructive sleep apnea syndrome G47.33 ; Low back pain M54.5 and Anxiety F41.9 [facility] [id number] [place] [address] 30375- 0884 Mar, Chronic obstructive pulmonary disease, unspecified J44.9 [facility] [id number] [place] [address] 56245- 9218 Mar, Chronic obstructive pulmonary disease, unspecified J44.9 [facility] [id number] [place] [address] 53636- 0706 Mar, Chronic obstructive pulmonary disease, unspecified J44.9 [facility] [address] 30186- 4614 Feb, [facility] [address] 35053- 2770 Feb, [facility] [address] 87528- 1902 Feb, Chronic obstructive pulmonary disease, unspecified J44.9 [facility] [id number] [place] [address] 05697- 0499 Feb, [facility] [id number] [place] [address] 89542- 9061 Feb, Low back pain M54.5 ; Anxiety F41.9 and Bronchitis J40 [facility] [id number] [place] [address] 65665- 5968 Jan, [facility] [id number] [place] [address] 25743- 4406 15 Jan, 2016 Anxiety F41.9 [facility] [id number] [place] [address] 11962- 5142 Jan, Chronic obstructive pulmonary disease, unspecified J44.9 [facility] [id number] [place] [address] 67854- 9968 06 Jan, 2016 Low back pain M54.5 [facility] [address] [place] [address] 93005- 4845 Dec, Vertigo R42 [facility] [id number] [place] [address] 16551- 8219 Dec, [facility] [id number] [place] [address] 52549- 5281 Nov, [facility] [id number] [place] [address] 36349- 1680 Nov, Low back pain M54.5 and Anxiety F41.9 [facility] [id number] [place] [address] 16563- 5333 Nov, [facility] [id number] [place] [address] 37592- 0295 Nov, [facility] [id number] [place] [address] 16029- 1727 Oct, Low back pain M54.5 and Anxiety F41.9 [facility] [id number] [place] [address] 04775- 0800 September, [facility] [id number] [place] [address] 86881- 1747 Aug, Shortness of breath R06.02 [facility] [id number] [place] [address] 05252- 9185 Aug, Shortness of breath R06.02 [facility] [id number] [place] [address] 77083- 0187 Aug, [facility] [id number] [place] [address] 65308- 4560 Jul, Insomnia G47.00 and Shortness of breath R06.02 [facility] [id number] [place] [address] 94446- 1404 Jul, [facility] [id number] [place] [address] 09855- 7399 Jul, [facility] [address] [id number] [place] [address]- 5279 Jul, Bronchitis J40 [facility] [address] [id number] [place] [address]- 6203 Jul, [facility] [address] [facility] [id number] [place] [address]- 0289 Jun, [facility] [place] [facility] [address] [id number] [place] [address]- 3590 Jun, [facility] [address] [id number] [place] [address]- 1222 May, [facility] [place] [facility] [address] [facility] [id number] [place] [address]- 4636 May, [facility] [address] [facility] [id number] [place] [address]- 1893 Apr, [facility] [address] [facility] [id number] [place] [address]- 8154 Apr, [facility] [address] [facility] [id number] [place] [address]- 0891 Mar, [facility] [address] [facility] [id number] [address]- 0708 Mar, [facility] [place] [facility] [address] [facility] [id number] [place] [address]- 4430 Mar, [facility] [place] [facility] [address] [facility] [id number] [address]- 7372 Feb, [facility] [place] [facility] [address] [facility] [id number] [address]- 9384 Feb, [facility] [place] [facility] [address] [facility] [id number] [address]- 8265 Feb, Chronic obstructive pulmonary disease, unspecified J44.9 [facility] [place] [facility] [address] [facility] [id number] [address]- 4838 Jan, [facility] [address] [address]- 8446 Jan, [facility] [address] [address]- 3156 Dec, [facility] [address] [address]- 4962 Dec, [facility] [id number] [place] [address] 38136- 5385 Dec, High risk medication use V58.69 ; Back pain 724.5 ; Insomnia 780.52 ; Screening, lipid V77.91 and Screening for prostate cancer V76.44 [facility] [address] [address]- 0318 Nov, [facility] [id number] [place] [address] 76728- 6334 Nov, [facility] [id number] [address]- 2939 Nov, [facility] [id number] [place] [address] 90177- 4184 Oct, [facility] [address] [address]- 4918 Oct, [facility] [address] [address]- 4951 September, [facility] [address] [address]- 0287 Aug, [facility] [address] [address]- 1629 Aug, [facility] [address] [address] 2546 Jul, [facility] [address] [address]- 9616 Jul, [facility] [place] [facility] [address] [id number] [place] [address]- 0682 Jul, [facility] [place] [facility] [address] [id number] [place] [address]- 4044 Jul, [facility] [place] [facility] [address] [id number] [place] [address]- 5770 Jul, [facility] [place] [facility] [address] [id number] [place] [address]- 8276 Jul, [facility] [place] [facility] [address] [id number] [place] [address]- 9603 Jun, 2014 [facility] [place] [facility] [address] [id number] [place] [address]- 6444 Jun, 2014 [facility] [place] [facility] [address] [id number] [place] [address]- 0305 Jun, [facility] [place] [facility] [address] [id number] [place] [address]- 6923 Jun, [facility] [place] [facility] [address] [id number] [place] [address]- 7708 May, [facility] [place] [facility] [address] [id number] [place] [address]- 9902 May, [facility] [place] [facility] [address] [id number] [place] [address]- 8279 May, [facility] [place] [facility] [address] [id number] [place] [address]- 5238 May, [facility] [place] [facility] [address] [id number] [place] [address]- 5439 May, [facility] [place] [facility] [address] [id number] [place] [address]- 3222 May, [facility] [place] [facility] [address] [id number] [place] [address]- 4570 Apr, [facility] [place] [facility] [address] [id number] [address]- 9342 Apr, [facility] [place] [facility] [address] [id number] [place] [address]- 9969 Mar, [facility] [place] [facility] [address] [id number] [place] [address]- 5371 Mar, [facility] [place] [facility] [address] [id number] [place] [address]- 0808 Mar, [facility] [place] [facility] [address] [id number] [place] [address]- 4878 Mar, [facility] [place] [facility] [address] [id number] [place] [address]- 5244 Feb, [facility] [place] [facility] [address] [id number] [place] [address]- 7139 16 Feb, 2014 [facility] [place] [facility] [address] [id number] [place] [address]- 2416 Feb, [facility] [place] [facility] [address] [id number] [place] [address]- 5261 Feb, [facility] [place] [facility] [address] [id number] [place] [address]- 1782 23 Jan, 2014 [facility] [place] [facility] [address] [id number] [place] [address]- 7130 23 Jan, 2013 [facility] [place] [facility] [address] [id number] [address]- 9894 17 Jan, 2013 [facility] [place] [facility] [address] [id number] [address]- 9062 17 Jan, 2013 [facility] [place] [facility] [address] [id number] [place] [address]- 6246 02 Jan, 2013 [facility] [place] [facility] [address] [id number] [place] [address]- 8948 02 Jan, 2013 [facility] [place] [facility] [address] [id number] [place] [address]- 2106 02 Jan, 2013 [facility] [place] [facility] [address] [id number] [place] [address]- 1002 Jan, 2013 [facility] [place] [facility] [address] [id number] [place] [address]- 5263 Jan, 2013 [facility] [place] [facility] [address] [id number] [place] [address]- 8173 Jan, [facility] [place] [facility] [address] [id number] [place] [address]- 0620 Dec, [facility] [place] [facility] [address] [id number] [place] [address]- 8875 Dec, [facility] [place] [facility] [address] [id number] [place] [address]- 7559 Nov, [facility] [place] [facility] [address] [id number] [place] [address]- 9416 Nov, [facility] [place] [facility] [address] [id number] [place] [address]- 5319 Nov, [facility] [place] [facility] [address] [id number] [place] [address]- 0371 Nov, [facility] [place] [facility] [address] [id number] [place] [address]- 5617 Nov, [facility] [place] [facility] [address] [id number] [place] [address]- 3188 Nov, [facility] [place] [facility] [address] [id number] [place] [address]- 3406 Nov, [facility] [place] [facility] [address] [id number] [place] [address]- 8646 Nov, 2013 [facility] [place] [facility] [address] [id number] [place] [address]- 4332 Nov, [facility] [place] [facility] [address] [id number] [place] [address]- 7832 Nov, 2013 [facility] [place] [facility] [address] [id number] [place] [address]- 9663 Nov, [facility] [place] [facility] [address] [id number] [place] [address]- 2546 Nov, [facility] [place] [facility] [address] [id number] [place] [address]- 8046 Oct, [facility] [place] [facility] [address] [id number] [place] [address]- 8824 Oct, [facility] [place] [facility] [address] [id number] [place] [address]- 9451 Oct, [facility] [place] [facility] [address] [id number] [place] [address]- 6901 Oct, [facility] [place] [facility] [address] [id number] [place] [address]- 3918 Oct, [facility] [place] [facility] [address] [id number] [place] [address]- 0031 Oct, [facility] [place] [facility] [address] [id number] [place] [address]- 0372 Oct, [facility] [place] [facility] [address] [id number] [place] [address]- 7740 Oct, [facility] [place] [facility] [address] [id number] [place] [address]- 7137 September, [facility] [place] [facility] [address] [id number] [place] [address]- 2508 September, [facility] [place] [facility] [address] [id number] [place] [address]- 9817 September, [facility] [place] [facility] [address] [id number] [place] [address]- 2464 September, [facility] [place] [facility] [address] [id number] [place] [address] September, [facility] [place] [facility] [address] [id number] [place] [address] September, [facility] [place] [facility] [address] [id number] [place] [address] September, [facility] [place] [facility] [address] [id number] [place] [address] September, [facility] [place] [facility] [address] [id number] [place] [address] September, [facility] [place] [facility] [address] [id number] [place] [address] September, [facility] [place] [facility] [address] [id number] [place] [address] Aug, [facility] [place] [facility] [address] [id number] [place] [address] Aug, [facility] [place] [facility] [address] [id number] [place] [address] Aug, [facility] [place] [facility] [address] [id number] [place] [address] Aug, [facility] [place] [facility] [address] [id number] [place] [address] Aug, [facility] [place] [facility] [address] [id number] [place] [address] Aug, [facility] [place] [facility] [address] [id number] [place] [address] Aug, [facility] [place] [facility] [address] [id number] [place] [address] Aug, [facility] [place] [facility] [address] [id number] [place] [address] Aug, [facility] [place] [facility] [address] [id number] [place] [address] Aug, [facility] [place] [facility] [address] [id number] [place] [address] Aug, [facility] [place] [facility] [address] [id number] [place] [address] Aug, [facility] [place] [facility] [address] [id number] [place] [address] Aug, [facility] [place] [facility] [address] [id number] [place] [address] Aug, [facility] [place] [facility] [address] [id number] [place] [address] Jul, [facility] [place] [facility] [address] [id number] [place] [address] Jul, [facility] [place] [facility] [address] [id number] [place] [address] Jul, [facility] [place] [facility] [address] [id number] [place] [address] Jul, [facility] [place] [facility] [address] [facility] [id number] [place] [address] Jun, [facility] [place] [facility] [address] [id number] [place] [address] Jun, [facility] [place] [facility] [address] [id number] [place] [address] Jun, [facility] [place] [facility] [address] [facility] [id number] [place] [address] Jun, [facility] [place] [facility] [address] [facility] [id number] [place] [address] Jun, [facility] [place] [facility] [address] [id number] [address] Jun, [facility] [place] [facility] [address] [id number] [place] [address] Jun, [facility] [place] [facility] [address] [id number] [place] [address] May, [facility] [place] [facility] [address] [id number] [place] [address] May, [facility] [place] [facility] [address] [id number] [address] May, [facility] [place] [facility] [address] [id number] [place] [address] May, [facility] [place] [facility] [address] [id number] [address] May, [facility] [place] [facility] [address] [id number] [place] [address] May, [facility] [place] [facility] [address] [id number] [place] [address] Apr, [facility] [place] [facility] [address] [id number] [place] [address] Apr, [facility] [place] [facility] [address] [id number] [place] [address] Mar, [facility] [place] [facility] [address] [id number] [place] [address] Mar, [facility] [place] [facility] [address] [address] [id number] [place] [address] Mar, [facility] [place] [facility] [address] [id number] [place] [address] Mar, [facility] [place] [facility] [address] [id number] [place] [address] Mar, [facility] [place] [facility] [address] [id number] [address] Mar, [facility] [place] [facility] [address] [id number] [place] [address] Feb, [facility] [place] [facility] [address] [id number] [place] [address] Feb, [facility] [place] [facility] [address] [id number] [place] [address] Feb, [facility] [place] [facility] [address] [id number] [place] [address] Feb, [facility] [place] [facility] [address] [id number] [place] [address] 16 Feb, 2013 [facility] [address] [id number] [place] [address] Jan, [facility] [address] [id number] [place] [address] Dec, [facility] [address] [id number] [place] [address] Dec, [facility] [address] [id number] [place] [address] Oct, [facility] [address] [id number] [place] [address] Oct, [facility] [address] [id number] [place] [address] Oct, [facility] [address] [id number] [place] [address] September, [facility] [address] [id number] [place] [address] September, [facility] [address] [id number] [place] [address] Aug, [facility] [address] [id number] [place] [address] Aug, [facility] [address] [id number] [place] [address] Jul, [facility] [address] [id number] [place] [address] May, [facility] [place] [facility] [address] [id number] [place] [address] May, [facility] [address] [id number] [place] [address] Apr, [facility] [address] [id number] [place] [address] Apr, [facility] [place] [facility] [address] [id number] [place] [address] Apr, [facility] [place] [facility] [address] [id number] [place] [address] Apr, [facility] [place] [facility] [address] [id number] [place] [address] Apr, [facility] [place] [facility] [address] [id number] [place] [address] Apr, [facility] [place] [facility] [address] [id number] [place] [address] Apr, [facility] [place] [facility] [address] [id number] [place] [address] Apr, [facility] [place] [facility] [address] [id number] [place] [address] Mar, [facility] [place] [facility] [address] [id number] [place] [address] Mar, [facility] [place] [facility] [address] [id number] [place] [address] Feb, [facility] [place] [facility] [address] [id number] [place] [address] Feb, [facility] [place] [facility] [address] [id number] [place] [address] Feb, [facility] [place] [facility] [address] [id number] [address] Jan, [facility] [place] [facility] [address] [id number] [place] [address] Jan, [facility] [place] [facility] [address] [id number] [place] [address] Dec, [facility] [place] [facility] [address] [id number] [place] [address] Dec, [facility] [place] [facility] [address] [id number] [place] [address] Dec, [facility] [address] [id number] [place] [address] 25[address] Dec, [facility] [place] [facility] [address] [id number] [place] [address] 25[address] Nov, [facility] [place] [facility] [address] [id number] [place] [address] Nov, [facility] [place] [facility] [address] [id number] [place] [address] Nov, [facility] [place] [facility] [address] [id number] [place] [address] September, [facility] [place] [facility] [address] [id number] [place] [address]- [address] September, [facility] [address] [id number] [place] [address] September, [facility] [place] [facility] [address] [id number] [place] [address] Aug, [facility] [place] [facility] [address] [id number] [place] [address] Jun, [facility] [place] [facility] [address] [id number] [place] [address] May, [facility] [place] [facility] [address] [id number] [place] [address] Apr, [facility] [place] [facility] [address] [id number] [place] [address] Apr, [facility] [place] [facility] [address] [id number] [place] [address] Apr, [facility] [place] [facility] [address] [id number] [place] [address]- [address] Mar, [facility] [place] [facility] [address] [id number] [place] [address] Mar, [facility] [address] [facility] [id number] [place] [address] Feb, [facility] [address] [facility] [id number] [place] [address] Feb, [facility] [address] [facility] [id number] [place] [address] Feb, [facility] [address] [id number] [address] Feb, [facility] [address] [facility] [id number] [place] [address] Nov, [facility] [address] [facility] [id number] [place] [address] Oct, IMMUNIZATIONS No Known Immunizations SOCIAL HISTORY Never Assessed REASON FOR VISIT Controlled Med Refill 03/21/18 PLAN OF CARE VITAL SIGNS MEDICATIONS Medication Instructions Dosage Frequency Start Date End Date Duration Status Alprazolam 1 MG Orally Twice a day 1 tablet 12h Dec, 28 days Active Zolpidem Tartrate 5 mg Orally Once a day 1 tablet at bedtime 24h Dec, 28 days Active RESULTS No Results PROCEDURES No Known procedures INSTRUCTIONS MEDICATIONS ADMINISTERED No Known Medications MEDICAL (GENERAL) HISTORY Type Description Date Medical History hypertension Medical History chronic obstructive pulmonary disease (COPD) Medical History diverticulitis Medical History gastroesophageal reflux disease (GERD) Medical History obesity Medical History PFT 01/2017 Mod obstructive Defect Medical History Acute kidney injury Medical History Sepsis Medical History Gastric Sleeve Surgical History tonsillectomy Surgical History orthopedic surgery Surgical History cataract removal 05/2015 Surgical History Right Shoulder 2017 Surgical History Right knee scope with meniscus repair 2018 Hospitalization History Hospitalization for surgery only Hospitalization History sepsis at [facility] 08/2017
--- OUTSIDE RECORDS SUMMARY | 2018-04-04 14:19 | XMS REPORT ---
Author Author JENNIFER FERRELL Organization [facility] Address [address] [place] [address] Care Team Providers Care Starch Mangle Tender Name Role Phone JENNIFER FERRELL Unavailable PROBLEMS Type Condition ICD9-CM Code MLW66-WT Code Onset Dates Condition Status SNOMED Code Problem Obstructive sleep apnea syndrome G47.33 Active 74431185 Problem Other obesity due to excess calories E66.09 Active 76681006247295 Problem Body mass index (BMI) of 50-59.9 in adult Z68.43 Active 341919095 Problem Other chronic pain G89.29 Active 41643075 Problem Essential hypertension I10 Active 67353680 Problem Chronic obstructive pulmonary disease with (acute) exacerbation J44.1 Active 419565777 Problem Other emphysema J43.8 Active 66563940 Problem Thrombocytopenia D69.6 Active 839345676 Problem Acute exacerbation of chronic obstructive pulmonary disease (COPD) J44.1 Active 485431279 Problem Gastroesophageal reflux disease without esophagitis K21.9 Active 423144106 Problem Dysthymia F34.1 Active 76021265 Problem Mild intermittent asthma without complication J45.20 Active 168397812 Problem Insomnia G47.00 Active 657984545 Problem Anxiety F41.9 Active 39827932 Problem Primary insomnia F51.01 Active 8270004 Problem Low back pain M54.5 Active 844432292 Problem Shortness of breath R06.02 Active 831045086 Problem Chronic obstructive pulmonary disease, unspecified J44.9 Active 46762729 ALLERGIES No Known Allergies ENCOUNTERS Encounter Location Date Diagnosis [facility] [address] [facility] [id number] [address] Feb, Pain in right knee M25.561 [facility] [address] [facility] [id number] [address] Feb, Status post bariatric surgery Z98.84 ; Chronic obstructive pulmonary disease, unspecified J44.9 ; Pain in right knee M25.561 ; Pain in left knee M25.562 ; Other chronic pain G89.29 ; Encounter for immunization Z23 and BMI 45.0-49.9, adult Z68.42 [facility] [id number] [place] [address] 78401- 4526 16 Feb, 2018 Primary insomnia F51.01 [facility] [address] 12347- 3840 14 Jan, 2018 Anxiety F41.9 and Primary insomnia F51.01 [facility] [address] 49367- 4923 Dec, Anxiety F41.9 ; Primary insomnia F51.01 ; Low back pain M54.5 ; BMI 50.0-59.9, adult Z68.43 ; Shortness of breath R06.02 and Essential hypertension I10 [facility] [address] 38871- 6727 Dec, Low back pain M54.5 and Primary insomnia F51.01 [facility] [address] 07189- 3177 Dec, [facility] [address] 71956- 0451 Nov, Acute exacerbation of chronic obstructive pulmonary disease (COPD) J44.1 ; Primary insomnia F51.01 and Low back pain M54.5 [facility] [address] [address]76- 1222 September, BMI 50.0-59.9, adult Z68.43 and Chronic obstructive pulmonary disease, unspecified COPD type J44.9 [facility] [address] 35606- 7858 Aug, Chronic obstructive pulmonary disease, unspecified J44.9 ; Primary insomnia F51.01 ; Low back pain M54.5 and BMI 50.0-59.9, adult Z68.43 [facility] [address] [place] [address]- 1754 16 Aug, 2017 Shortness of breath R06.02 ; Loose stools R19.5 and BMI 50.0 -59.9, adult Z68.43 [facility] [address] 60387- 0748 11 Aug, 2017 Acute renal injury N17.9 and Thrombocytopenia D69.6 [facility] [address] 24182- 1077 May, [facility] [address] 59635- 0554 Apr, [facility] [address] [address]53 Mar, Acute exacerbation of chronic obstructive pulmonary disease (COPD) J44.1 ; BMI 50.0-59.9, adult Z68.43 and BMI 60.0-69.9, adult Z68.44 [facility] [address] 44430- 6564 Mar, [facility] [address] 46620- 2138 Feb, Right anterior shoulder pain M25.511 ; Encounter for immunization Z23 ; Other emphysema J43.8 ; Other obesity due to excess calories E66.09 ; Body mass index (BMI) of 50-59.9 in adult Z68.43 and Low back pain M54.5 [facility] [id number] [place] [address] 70365- 7528 Feb, [facility] [address] 00187- 8083 Feb, Low back pain M54.5 [facility] [address] 00089- 5617 Jan, [facility] [address] 47112- 6755 Jan, Low back pain M54.5 [facility] [id number] [place] [address] 02517- 7927 Dec, Shortness of breath R06.02 [facility] [id number] [place] [address] 55291- 4028 Dec, Low back pain M54.5 [facility] [id number] [place] [address] 75219- 7468 Nov, Low back pain M54.5 [facility] [id number] [place] [address] 45230- 3194 Oct, [facility] [id number] [place] [address] 36937- 2704 Oct, Low back pain M54.5 [facility] [id number] [place] [address] 25315- 7627 September, Low back pain M54.5 [facility] [id number] [place] [address] 36898 -2877 September, Sore throat J02.9 and Strep throat J02.0 [facility] [id number] [place] [address] 55438- 3818 September, [facility] [id number] [place] [address] 76548- 1368 Aug, Low back pain M54.5 [facility] [id number] [place] [address] 12044- 9094 Aug, Medicare welcome exam Z00.00 ; Prostate cancer screening Z12.5 ; Encounter for screening for lung cancer Z12.2 and Lipid screening Z13.220 [facility] [id number] [place] [address] 39990- 3320 Jul, [facility] [id number] [place] [address] 90716- 6030 Jul, Low back pain M54.5 [facility] [id number] [place] [address] 87240- 6860 Jul, [facility] [id number] [place] [address] 03707- 0535 Jun, [facility] [address] 18835- 5675 Jun, Anxiety F41.9 and Low back pain M54.5 [facility] [address] 98179- 4348 Jun, Shortness of breath R06.02 [facility] [id number] [place] [address] 27240- 7709 May, Anxiety F41.9 and Low back pain M54.5 [facility] [id number] [place] [address] 15446- 5404 May, [facility] [address] 16465- 2929 Apr, [facility] [address] 45811- 7070 Apr, Chronic obstructive pulmonary disease, unspecified J44.9 [facility] [id number] [place] [address] 04209- 8423 Apr, [facility] [id number] [place] [address] 43333- 8633 Apr, Chronic obstructive pulmonary disease, unspecified J44.9 [facility] [id number] [place] [address] 81290- 7946 Apr, [facility] [id number] [place] [address] 56071- 1767 Apr, Anxiety F41.9 and Low back pain M54.5 [facility] [id number] [place] [address] 88716- 3848 Mar, Encounter for immunization Z23 ; Obstructive sleep apnea syndrome G47.33 ; Low back pain M54.5 and Anxiety F41.9 [facility] [address] [place] [address] 01067- 5344 Mar, Chronic obstructive pulmonary disease, unspecified J44.9 [facility] [id number] [place] [address] 15300- 9457 Mar, Chronic obstructive pulmonary disease, unspecified J44.9 [facility] [id number] [place] [address] 82175- 3113 Mar, Chronic obstructive pulmonary disease, unspecified J44.9 [facility] [id number] [place] [address] 83770- 2497 Feb, [facility] [id number] [place] [address] 51742- 0755 Feb, [facility] [id number] [place] [address] 01917- 4509 Feb, Chronic obstructive pulmonary disease, unspecified J44.9 [facility] [id number] [place] [address] 23324- 4543 Feb, [facility] [id number] [place] [address] 05847- 6250 Feb, Low back pain M54.5 ; Anxiety F41.9 and Bronchitis J40 [facility] [id number] [place] [address] 93205- 3657 Jan, [facility] [id number] [place] [address] 39521 2548 15 Jan, 2016 Anxiety F41.9 [facility] [address] [place] [address] 48020- 6316 12 Jan, 2016 Chronic obstructive pulmonary disease, unspecified J44.9 [facility] [address] [place] [address] 53175- 0271 06 Jan, 2016 Low back pain M54.5 [facility] [id number] [place] [address] 64938- 5317 Dec, Vertigo R42 [facility] [address] [address]- 9742 Dec, [facility] [id number] [place] [address] 55274- 1960 Nov, [facility] [id number] [place] [address] 60037- 4405 Nov, Low back pain M54.5 and Anxiety F41.9 [facility] [id number] [place] [address] 72657- 0290 Nov, [facility] [id number] [place] [address] 55269- 1908 Nov, [facility] [id number] [place] [address] 91212- 2886 Oct, Low back pain M54.5 and Anxiety F41.9 [facility] [id number] [place] [address] 45686- 2981 September, [facility] [id number] [place] [address] 70343- 2644 Aug, Shortness of breath R06.02 [facility] [id number] [place] [address] 10086- 8026 Aug, Shortness of breath R06.02 [facility] [id number] [place] [address] 39787- 5660 Aug, [facility] [id number] [place] [address] 30414- 2988 Jul, Insomnia G47.00 and Shortness of breath R06.02 [facility] [id number] [place] [address] 07062- 7944 Jul, [facility] [id number] [place] [address] 24744- 7551 Jul, [facility] [id number] [place] [address] 82092- 0634 Jul, Bronchitis J40 [facility] [address] [facility] [id number] [address]- 1796 Jul, [facility] [address] [facility] [id number] [place] [address]- 7658 Jun, [facility] [address] [facility] [id number] [place] [address]- 5761 Jun, [facility] [address] [facility] [id number] [place] [address]- 8105 May, [facility] [address] [facility] [id number] [place] [address], [place] [address]- 3506 May, [facility] [address] [place] [address] 74020- 0328 Apr, [facility] [id number] [place] [address] 21822- 1958 Apr, [facility] [address] [address]- 8669 Mar, [facility] [address] [address]- 8070 Mar, [facility] [address] [address]- 1493 Mar, [facility] [address] [address]- 3913 Feb, [facility] [address] [address]- 7733 Feb, [facility] [address] [address]- 5463 08 Feb, 2015 Chronic obstructive pulmonary disease, unspecified J44.9 [facility] [address] [facility] [id number] [address]- 5077 23 Jan, 2015 [facility] [address] [address]- 2902 Jan, [facility] [address] [facility] [id number] [address]- 2955 Dec, [facility] [address] [facility] [id number] [place] [address]- 6966 Dec, [facility] [address] [facility] [id number] [address]- 1325 Dec, High risk medication use V58.69 ; Back pain 724.5 ; Insomnia 780.52 ; Screening, lipid V77.91 and Screening for prostate cancer V76.44 [facility] [address] [facility] [id number] [place] [address]- 1736 Nov, [facility] [address] [facility] [id number] [place] [address]- 8422 Nov, [facility] [address] [address]- 5619 Nov, [facility] [address] [facility] [id number] [place] [address]- 4997 Oct, [facility] [address] [id number] [place] [address]- 8647 Oct, [facility] [address] [facility] [id number] [place] [address]- 4111 September, [facility] [address] [id number] [address]- 8538 Aug, [facility] [address] [facility] [id number] [place] [address]- 4487 Aug, [facility] [address] [facility] [id number] [place] [address]- 2036 Jul, [facility] [address] [facility] [id number] [place] [address]- 8996 Jul, [facility] [address] [id number] [place] [address]- 2546 Jul, [facility] [address] [facility] [id number] [place] [address]- 7726 Jul, [facility] [place] [facility] [address] [id number] [place] [address]- 5267 Jul, [facility] [place] [facility] [address] [id number] [place] [address]- 4856 Jul, [facility] [place] [facility] [address] [id number] [place] [address]- 3651 Jun, 2014 [facility] [place] [facility] [address] [id number] [place] [address]- 2158 Jun, 2014 [facility] [place] [facility] [address] [id number] [place] [address]- 7999 Jun, 2014 [facility] [place] [facility] [address] [id number] [place] [address]- 8142 Jun, [facility] [place] [facility] [address] [id number] [place] [address]- 2556 May, [facility] [place] [facility] [address] [id number] [place] [address]- 0005 May, [facility] [place] [facility] [address] [id number] [place] [address]- 8309 May, [facility] [place] [facility] [address] [id number] [place] [address]- 2608 May, [facility] [place] [facility] [address] [id number] [place] [address]- 5702 May, [facility] [place] [facility] [address] [id number] [place] [address]- 0337 May, [facility] [place] [facility] [address] [id number] [place] [address]- 4506 Apr, [facility] [place] [facility] [address] [id number] [place] [address]- 2546 Apr, [facility] [place] [facility] [address] [id number] [place] [address]- 2977 Mar, [facility] [place] [facility] [address] [id number] [place] [address]- 8421 Mar, [facility] [place] [facility] [address] [id number] [place] [address]- 8673 Mar, [facility] [place] [facility] [address] [id number] [place] [address]- 4066 Mar, [facility] [place] [facility] [address] [id number] [place] [address]- 8103 Feb, [facility] [place] [facility] [address] [id number] [place] [address]- 2187 Feb, [facility] [place] [facility] [address] [id number] [place] [address]- 0264 Feb, [facility] [place] [facility] [address] [id number] [place] [address]- 8172 Feb, [facility] [place] [facility] [address] [id number] [place] [address]- 9350 Jan, [facility] [place] [facility] [address] [id number] [place] [address]- 9879 23 Jan, 2014 [facility] [place] [facility] [address] [id number] [place] [address]- 2274 17 Jan, 2014 [facility] [place] [facility] [address] [id number] [place] [address]- 1494 17 Jan, 2013 [facility] [place] [facility] [address] [id number] [address]- 6601 Sep, 2013 [facility] [place] [facility] [address] [id number] [place] [address]- 9720 Sep, 2013 [facility] [place] [facility] [address] [id number] [place] [address]- 8872 Jan, 2013 [facility] [place] [facility] [address] [id number] [place] [address]- 8294 Jan, 2013 [facility] [place] [facility] [address] [id number] [place] [address]- 1675 Jan, [facility] [place] [facility] [address] [id number] [place] [address]- 2218 Jan, [facility] [place] [facility] [address] [id number] [place] [address]- 1136 Dec, [facility] [place] [facility] [address] [id number] [place] [address]- 1199 Dec, [facility] [place] [facility] [address] [id number] [place] [address]- 3870 Nov, [facility] [place] [facility] [address] [id number] [place] [address]- 2762 Nov, [facility] [place] [facility] [address] [id number] [place] [address]- 7086 Nov, [facility] [place] [facility] [address] [id number] [place] [address]- 1067 Nov, [facility] [place] [facility] [address] [id number] [place] [address]- 9459 Nov, [facility] [place] [facility] [address] [id number] [place] [address]- 9311 Nov, [facility] [place] [facility] [address] [id number] [place] [address]- 2708 Nov, [facility] [place] [facility] [address] [id number] [place] [address]- 4787 Nov, [facility] [place] [facility] [address] [id number] [place] [address]- 6134 Nov, [facility] [place] [facility] [address] [id number] [place] [address]- 3433 Nov, [facility] [place] [facility] [address] [id number] [place] [address]- 8573 Nov, [facility] [place] [facility] [address] [id number] [place] [address]- 8270 Nov, [facility] [place] [facility] [address] [id number] [place] [address]- 0966 Oct, [facility] [place] [facility] [address] [id number] [place] [address]- 3595 Oct, [facility] [place] [facility] [address] [id number] [place] [address]- 0518 Oct, [facility] [place] [facility] [address] [id number] [place] [address]- 2502 Oct, [facility] [place] [facility] [address] [id number] [place] [address]- 6872 Oct, [facility] [place] [facility] [address] [id number] [place] [address]- 9490 Oct, [facility] [place] [facility] [address] [id number] [place] [address]- 8971 Oct, [facility] [place] [facility] [address] [id number] [place] [address]- 9924 Oct, [facility] [place] [facility] [address] [id number] [place] [address]- 0053 September, [facility] [place] [facility] [address] [id number] [place] [address]- 0330 September, [facility] [place] [facility] [address] [id number] [place] [address]- 1932 September, [facility] [place] [facility] [address] [id number] [place] [address]- 1991 September, [facility] [place] [facility] [address] [id number] [place] [address]- 4745 September, [facility] [place] [facility] [address] [id number] [place] [address]- 0086 September, [facility] [place] [facility] [address] [id number] [place] [address]- 4195 September, [facility] [place] [facility] [address] [id number] [place] [address] September, [facility] [place] [facility] [address] [id number] [place] [address] September, [facility] [place] [facility] [address] [id number] [place] [address] September, [facility] [place] [facility] [address] [id number] [place] [address] Aug, [facility] [place] [facility] [address] [id number] [place] [address] Aug, [facility] [place] [facility] [address] [id number] [place] [address] Aug, [facility] [place] [facility] [address] [id number] [place] [address] Aug, [facility] [place] [facility] [address] [id number] [place] [address] Aug, [facility] [place] [facility] [address] [id number] [place] [address] Aug, [facility] [place] [facility] [address] [id number] [place] [address] Aug, [facility] [place] [facility] [address] [id number] [place] [address] Aug, [facility] [place] [facility] [address] [id number] [place] [address] Aug, [facility] [place] [facility] [address] [id number] [place] [address] Aug, [facility] [place] [facility] [address] [id number] [place] [address] Aug, [facility] [place] [facility] [address] [id number] [place] [address] Aug, [facility] [place] [facility] [address] [id number] [place] [address] Aug, [facility] [place] [facility] [address] [id number] [place] [address] Aug, [facility] [place] [facility] [address] [id number] [place] [address] Jul, [facility] [place] [facility] [address] [id number] [place] [address] Jul, [facility] [place] [facility] [address] [id number] [place] [address] Jul, [facility] [place] [facility] [address] [id number] [place] [address] Jul, [facility] [place] [facility] [address] [id number] [place] [address] Jun, [facility] [place] [facility] [address] [id number] [place] [address] Jun, [facility] [place] [facility] [address] [id number] [place] [address] Jun, [facility] [place] [facility] [address] [id number] [place] [address] Jun, [facility] [place] [facility] [address] [id number] [place] [address] Jun, [facility] [place] [facility] [address] [facility] [id number] [place] [address] Jun, [facility] [place] [facility] [address] [facility] [id number] [place] [address] Jun, [facility] [place] [facility] [address] [id number] [place] [address] May, [facility] [place] [facility] [address] [id number] [place] [address] May, [facility] [place] [facility] [address] [facility] [id number] [place] [address] May, [facility] [place] [facility] [address] [id number] [place] [address] May, [facility] [place] [facility] [address] [id number] [place] [address] May, [facility] [place] [facility] [address] [id number] [place] [address] May, [facility] [place] [facility] [address] [id number] [place] [address] Apr, [facility] [place] [facility] [address] [id number] [place] [address] Apr, [facility] [place] [facility] [address] [id number] [place] [address] Mar, [facility] [place] [facility] [address] [id number] [place] [address] Mar, [facility] [place] [facility] [address] [id number] [place] [address] Mar, [facility] [place] [facility] [address] [id number] [place] [address] Mar, [facility] [place] [facility] [address] [id number] [place] [address] Mar, [facility] [place] [facility] [address] [id number] [place] [address] Mar, [facility] [place] [facility] [address] [id number] [place] [address] Feb, [facility] [place] [facility] [address] [id number] [place] [address] Feb, [facility] [place] [facility] [address] [id number] [place] [address] Feb, [facility] [facility] [address] [id number] [address] 18 Feb, 2013 [facility] [place] [facility] [address] [id number] [place] [address] 16 Feb, 2013 [facility] [place] [facility] [address] [id number] [place] [address] Jan, [facility] [address] [id number] [place] [address] Dec, [facility] [address] [id number] [place] [address] Dec, [facility] [address] [id number] [place] [address] Oct, [facility] [address] [id number] [place] [address] Oct, [facility] [address] [id number] [place] [address] Oct, [facility] [address] [id number] [place] [address] September, [facility] [address] [id number] [place] [address] September, [facility] [address] [id number] [place] [address] Aug, [facility] [address] [id number] [place] [address] Aug, [facility] [address] [id number] [place] [address] Jul, [facility] [address] [id number] [place] [address] May, [facility] [address] [id number] [place] [address] May, [facility] [place] [facility] [address] [id number] [place] [address] Apr, [facility] [place] [facility] [address] [id number] [place] [address] Apr, [facility] [address] [id number] [place] [address] Apr, [facility] [place] [facility] [address] [id number] [place] [address] Apr, [facility] [place] [facility] [address] [id number] [place] [address] Apr, [facility] [place] [facility] [address] [id number] [place] [address] Apr, [facility] [place] [facility] [address] [id number] [place] [address] Apr, [facility] [place] [facility] [address] [id number] [place] [address] Apr, [facility] [place] [facility] [address] [id number] [place] [address] Mar, [facility] [place] [facility] [address] [id number] [place] [address] Mar, [facility] [place] [facility] [address] [id number] [place] [address] Feb, [facility] [place] [facility] [address] [id number] [place] [address] Feb, [facility] [place] [facility] [address] [id number] [place] [address] Feb, [facility] [place] [facility] [address] [id number] [place] [address] Jan, [facility] [place] [facility] [address] [id number] [place] [address] Jan, [facility] [place] [facility] [address] [id number] [place] [address] Dec, [facility] [place] [facility] [address] [id number] [place] [address] Dec, [facility] [place] [facility] [address] [id number] [place] [address] Dec, [facility] [place] [address] [id number] [place] [address] Dec, [facility] [address] [id number] [place] [address] Nov, [facility] [place] [facility] [address] [id number] [place] [address] Nov, [facility] [place] [facility] [address] [id number] [place] [address] Nov, [facility] [place] [facility] [address] [id number] [place] [address] September, [facility] [place] [facility] [address] [id number] [place] [address] September, [facility] [place] [facility] [address] [id number] [place] [address] September, [facility] [address] [id number] [place] [address] Aug, [facility] [address] [id number] [place] [address] Jun, [facility] [place] [address] [id number] [place] [address] May, [facility] [address] [id number] [place] [address] Apr, [facility] [facility] [address] [id number] [place] [address] Apr, [facility] [address] [id number] [place] [address] Apr, [facility] [place] [address] [id number] [place] [address] Mar, [facility] [place] [facility] [address] [id number] [place] [address] 254 Mar, [facility] [place] [address] [id number] [place] [address] Feb, [facility] [address] [id number] [place] [address] Feb, [facility] [address] [facility] [id number] [place] [address] Feb, [facility] [address] [facility] [id number] [place] [address] Feb, [facility] [address] [facility] [id number] [place] [address] Nov, [facility] [address] [facility] [id number] [place] [address] Oct, IMMUNIZATIONS Vaccine Route Administration Date Status FLULAVAL QUAD 0.5ML (6 MO & UP) 2018 IM Intramuscular Feb 28, 2018 Administered SOCIAL HISTORY Never Assessed REASON FOR VISIT COPD --AMILCAR Higuera PLAN OF CARE Activity Details Follow Up 4 Months Reason:COPD VITAL SIGNS Height 70 in 2018-02-28 Weight 320.9 lbs 2018-02-28 Temperature 98.2 degrees Fahrenheit 2018-02-28 Heart Rate 80 bpm 2018-02-28 Respiratory Rate 22 2018-02-28 BMI 46.04 kg/m2 2018-02-28 Blood pressure systolic 118 mmHg 2018-02-28 Blood pressure diastolic 68 mmHg 2018-02-28 MEDICATIONS Medication Instructions Dosage Frequency Start Date End Date Duration Status Albuterol Sulfate HFA 108 (90 Base) MCG/ACT Inhalation every 6 hrs 2 puffs as needed 6h Aug, 90 days Active Budesonide 0.5 MG/2ML Inhalation Twice a day 1 vial in nebulizer 12h Active Brovana 15 MCG/2ML Inhalation Twice a day 1 vial in nebulizer 12h Active Advair Diskus 250-50 MCG/DOSE Inhalation Twice a day 1 puff 12h 25 Aug, 2015 90 days Active Albuterol Sulfate (2.5 MG/3ML) 0.083% Inhalation every 4 hrs 1 vial in nebuizer as needed for cough or wheeze 4h Active Proventil HFA 108 (90 Base) MCG/ACT Inhalation every 6 hrs 2 puffs as needed 6h Active Zolpidem Tartrate 5 mg Orally Once a day 1 tablet at bedtime 24h Dec, 28 days Active Diclofenac Sodium 3 % Transdermal 3 times a day as directed 8h Feb, Jun, 30 days Active Alprazolam 1 MG Orally Twice a day 1 tablet 12h 20 Dec, 2017 28 days Active Lisinopril 40 mg Orally Once a day 1 tablet 24h 90 Active RESULTS No Results PROCEDURES Procedure Date Ordered Result Body Site FLULAVAL QUAD 0.5ML (6 MO & UP) 2017Feb 28, 2018 ADMN FLU VAC NO FEE SCHED SAME DAY Feb 28, 2018 FQ VISIT ESTABLISHED PATIENT Feb 28, 2018 SINGLE IMMUNIZATION ADMIN Feb 28, 2018 INSTRUCTIONS MEDICATIONS ADMINISTERED No Known Medications MEDICAL [...] for surgery only Hospitalization History sepsis at [facility] 08/2017
[2018-04-04 14:20] VITALS: BP 151/87
--- OUTSIDE RECORDS SUMMARY | 2018-04-04 14:20 | XMS REPORT ---
Author Author JENNIFER FERRELL Organization [facility] Address [address] [place] [address] Care Team Providers Care Sealer Operator Name Role Phone JENNIFER FERRELL Unavailable PROBLEMS Type Condition ICD9-CM Code WTX66-XL Code Onset Dates Condition Status SNOMED Code Problem Obstructive sleep apnea syndrome G47.33 Active 58112073 Problem Other emphysema J43.8 Active 94736980 Problem Body mass index (BMI) of 50-59.9 in adult Z68.43 Active 953599321 Problem Essential hypertension I10 Active 17277353 Problem Thrombocytopenia D69.6 Active 365149422 Problem Acute exacerbation of chronic obstructive pulmonary disease (COPD) J44.1 Active 845684066 Problem Other obesity due to excess calories E66.09 Active 38124216606524 Problem Chronic obstructive pulmonary disease, unspecified COPD type J44.9 Active 47416670 Problem Chronic obstructive pulmonary disease with (acute) exacerbation J44.1 Active 317693485 Problem Mild intermittent asthma without complication J45.20 Active 346697152 Problem Primary insomnia F51.01 Active 5128866 Problem Gastroesophageal reflux disease without esophagitis K21.9 Active 105231527 Problem Insomnia G47.00 Active 637100716 Problem Anxiety F41.9 Active 06399212 Problem Dysthymia F34.1 Active 91938481 Problem Low back pain M54.5 Active 778309575 Problem Shortness of breath R06.02 Active 720724306 Problem Chronic obstructive pulmonary disease, unspecified J44.9 Active 88059519 ALLERGIES No Known Allergies ENCOUNTERS Encounter Location Date Diagnosis [facility] [id number], [place] [address] Jan, Anxiety F41.9 and Primary insomnia F51.01 [facility] [id number], [place] [address] Dec, Anxiety F41.9 ; Primary insomnia F51.01 ; Low back pain M54.5 ; BMI 50.0-59.9, adult Z68.43 ; Shortness of breath R06.02 and Essential hypertension I[id number] [place] [address] 46033- 6505 Dec, Low back pain M54.5 and Primary insomnia F51.[address] [address]- [address] Dec, [place] [address] [address] Nov, Acute exacerbation of chronic obstructive pulmonary disease (COPD) J44.1 ; Primary insomnia F51.01 and Low back pain M54.5 [place] [address] [address] [address]- [address] September, BMI 50.0-59.9, adult Z68.43 and Chronic obstructive pulmonary disease, unspecified COPD type J44.9 [address] [id number] [place] [address] 30675- 0284 Aug, Chronic obstructive pulmonary disease, unspecified J44.9 ; Primary insomnia F51.01 ; Low back pain M54.5 and BMI 50.0-59.9, adult Z68.43 [address] [id number] [place] [address] 15824- 8529 16 Aug, 2017 Shortness of breath R06.02 ; Loose stools R19.5 and BMI 50.0 -59.9, adult Z68.43 [address] [id number] [place] [address] 76691- 7901 Aug, Acute renal injury N17.9 and Thrombocytopenia D69.[address] [address]- 4731 May, [place] [id number] [place] [address] 10712- 7356 Apr, [facility] [address] [place] [address] Mar, Acute exacerbation of chronic obstructive pulmonary disease (COPD) J44.1 ; BMI 50.0-59.9, adult Z68.43 and BMI 60.0-69.9, adult Z68.44 [facility] [place] [id number] [place] [address] 07234- 3673 Mar, [facility] [place] [address] [address]- [address] Feb, Right anterior shoulder pain M25.511 ; Encounter for immunization Z23 ; Other emphysema J43.8 ; Other obesity due to excess calories E66.09 ; Body mass index (BMI) of 50-59.9 in adult Z68.43 and Low back pain M54.5 [facility] [place] [id number] [place] [address] 22657- 5142 Feb, [facility] [place] [address] [address]- 7894 Feb, Low back pain M54.5 [facility] [id number] [place] [address] 56157- 6122 Jan, [facility] [place] [address] 45476- 2201 Jan, Low back pain M54.5 [facility] [id number] [place] [address] 12324- 9822 Dec, Shortness of breath R06.02 [facility] [id number] [place] [address] 07761- 6885 Dec, Low back pain M54.5 [facility] [address] 57286- 1378 Nov, Low back pain M54.5 [facility] [id number] [place] [address] 32849- 4365 Oct, [facility] [place] [address] 71367- 6981 Oct, Low back pain M54.5 [facility] [place] [id number] [place] [address] 06408- 7007 September, Low back pain M54.5 [facility] [id number] [place] [address] 26027 -7650 September, Sore throat J02.9 and Strep throat J02.0 [facility] [place] [id number] [place] [address] 57133- 2779 September, [facility] [place] [id number] [place] [address] 24685- 0195 Aug, Low back pain M54.5 [facility] [place] [id number] [place] [address] 07339- 8161 Aug, Medicare welcome exam Z00.00 ; Prostate cancer screening Z12.5 ; Encounter for screening for lung cancer Z12.2 and Lipid screening Z13.220 [facility] [place] [id number] [place] [address] 38144- 3764 Jul, [facility] [id number] [place] [address] 04718- 2072 Jul, Low back pain M54.5 [facility] [place] [id number] [place] [address] 73942- 4406 Jul, [facility] [place] [id number] [place] [address] 35713- 5391 Jun, [facility] [place] [id number] [place] [address] 85108- 9923 Jun, Anxiety F41.9 and Low back pain M54.5 [facility] [place] [id number] [place] [address] 26498- 1511 15 Jun, 2016 Shortness of breath R06.02 [facility] [place] [id number] [place] [address] 26964- 7373 May, Anxiety F41.9 and Low back pain M54.5 [facility] [place] [id number] [place] [address] 47466- 1927 May, [facility] [place] [id number] [place] [address] 44470- 8676 Apr, [facility] [place] [id number] [place] [address] 48318- 4847 Apr, Chronic obstructive pulmonary disease, unspecified J44.9 [facility] [id number] [place] [address] 70224- 9181 Apr, [facility] [place] [id number] [place] [address] 27702- 2470 Apr, Chronic obstructive pulmonary disease, unspecified J44.9 [facility] [id number] [place] [address] 90199- 8617 Apr, [facility] [place] [id number] [place] [address] 80835- 4925 Apr, Anxiety F41.9 and Low back pain M54.5 [facility] [place] [id number] [place] [address] 03443- 1617 Mar, Encounter for immunization Z23 ; Obstructive sleep apnea syndrome G47.33 ; Low back pain M54.5 and Anxiety F41.9 [facility] [place] [id number] [place] [address] 50069- 9855 Mar, Chronic obstructive pulmonary disease, unspecified J44.9 [facility] [place] [id number] [place] [address] 15029- 1246 Mar, Chronic obstructive pulmonary disease, unspecified J44.9 [facility] [id number] [place] [address] 51991- 3614 Mar, Chronic obstructive pulmonary disease, unspecified J44.9 [facility] [place] [id number] [place] [address] 20931- 1385 Feb, [facility] [place] [address] [address]- 9285 Feb, [facility] [place] [id number] [place] [address] 19508- 4974 Feb, Chronic obstructive pulmonary disease, unspecified J44.9 [facility] [place] [id number] [place] [address] 71539- 2186 Feb, [facility] [place] [id number] [place] [address] 16513- 3921 Feb, Low back pain M54.5 ; Anxiety F41.9 and Bronchitis J40 [facility] [place] [id number] [place] [address] 27080- 0401 Jan, [facility] [place] [id number] [place] [address] 14745- 2198 Jan, Anxiety F41.9 [facility] [place] [id number] [place] [address] 90227- 1655 Jan, Chronic obstructive pulmonary disease, unspecified J44.9 [facility] [id number] [place] [address] 64857- 2430 Jan, Low back pain M54.5 [facility] [place] [id number] [place] [address] 69472- 9580 Dec, Vertigo R42 [facility] [place] [id number] [place] [address] 25144- 2696 Dec, [facility] [place] [id number] [place] [address] 15309- 9819 Nov, [facility] [place] [id number] [place] [address] 77233- 2662 Nov, Low back pain M54.5 and Anxiety F41.9 [facility] [place] [id number] [place] [address] 76801 2546 Nov, [facility] [place] [id number] [place] [address] 39048- 1221 Nov, [facility] [id number], [place] [address]- 1434 Oct, Low back pain M54.5 and Anxiety F41.9 [facility] [place] [id number] [address]- 0121 September, [facility] [place] [id number] [place] [address] 13262- 6809 Aug, Shortness of breath R06.02 [facility] [place] [id number] [place] [address] 35655- 1920 Aug, Shortness of breath R06.02 [facility] [place] [id number] [place] [address] 50435- 5318 Aug, [facility] [place] [id number] [place] [address] 93297- 2256 Jul, Insomnia G47.00 and Shortness of breath R06.02 [facility] [place] [id number] [place] [address] 99215- 0724 Jul, [facility] [place] [id number] [place] [address] 16647- 1377 Jul, [facility] [place] [id number] [place] [address] 35168- 7092 Jul, Bronchitis J40 [facility] [place] [id number] [place] [address] 38447- 5599 Jul, [facility] [place] [id number] [place] [address] 22169- 9684 Jun, [facility] [id number] [place] [address] 62484- 7919 Jun, [facility] [address], [place] [address]- 0063 May, [facility] [place] [id number] [place] [address] 72169- 4487 May, [facility] [place] [address], [place] [address]- 3893 Apr, [facility] [id number], [place] [address]- 5100 Apr, [facility] [place] [id number], [place] [address]- 0550 Mar, [facility] [place] [id number] [place] [address] 04161- 7423 Mar, [facility] [place] [id number] [address]- 4050 Mar, [facility] [place] [id number] [place] [address] 45326- 5443 Feb, [facility] [place] [id number] [place] [address] 30267- 2616 Feb, [facility] [place] [id number] [place] [address] 45238- 4502 Feb, Chronic obstructive pulmonary disease, unspecified J44.9 [facility] [id number], [place] [address]- 2236 Jan, [facility] [address], [place] [address]- 2208 Jan, [facility] [place] [id number], [place] [address]- 2169 Dec, [facility] [id number], [place] [address]- 8727 Dec, [facility] [id number], [place] [address]- 9203 Dec, High risk medication use V58.69 ; Back pain 724.5 ; Insomnia 780.52 ; Screening, lipid V77.91 and Screening for prostate cancer V76.44 [facility] [address], [place] [address]- 5636 Nov, [facility] [place] [facility] [address] [id number] [place] [address]- 4863 Nov, [facility] [place] [facility] [address] [id number] [place] [address]- 6470 Nov, [facility] [place] [facility] [address] [id number] [place] [address]- 2614 Oct, [facility] [place] [facility] [address] [id number] [place] [address]- 2467 Oct, [facility] [place] [facility] [address] [id number] [place] [address]- 7000 September, [facility] [place] [facility] [address] [id number] [place] [address]- 6131 Aug, [facility] [place] [facility] [address] [id number] [place] [address]- 9217 Aug, [facility] [place] [facility] [address] [id number] [place] [address]- 8671 Jul, [facility] [place] [facility] [address] [id number] [place] [address]- 8744 Jul, [facility] [place] [facility] [address] [id number] [place] [address]- 7857 Jul, [facility] [place] [facility] [address] [id number] [place] [address]- 2584 Jul, [facility] [place] [facility] [address] [id number] [place] [address]- 5808 Jul, [facility] [place] [facility] [address] [id number] [place] [address]- 1183 Jul, [facility] [place] [facility] [address] [id number] [place] [address]- 5380 Jun, [facility] [place] [facility] [address] [id number] [place] [address]- 7795 Jun, [facility] [place] [facility] [address] [id number] [address]- 9136 Jun, [facility] [place] [facility] [address] [id number] [place] 8432 Jun, [facility] [place] [facility] [address] [id number] [place] [address]- 7697 May, [facility] [place] [facility] [address] [id number] [place] [address]- 0951 May, [facility] [place] [facility] [address] [id number] [place] [address]- 1838 May, [facility] [place] [facility] [address] [id number] [place] [address]- 6681 May, [facility] [place] [facility] [address] [id number] [place] [address]- 7335 May, [facility] [place] [facility] [address] [id number] [place] [address]- 2077 May, [facility] [place] [facility] [address] [id number] [place] [address]- 3368 Apr, [facility] [place] [facility] [address] [id number], [place] [address]- 2808 Apr, [facility] [place] [facility] [address] [id number] [place] [address]- 4384 Mar, [facility] [place] [facility] [address] [id number], [place] [address]- 5426 Mar, [facility] [place] [facility] [address] [id number], [place] [address]- 0403 Mar, [facility] [place] [facility] [address] [id number], [place] [address]- 7396 Mar, [facility] [place] [facility] [address] [id number] 8064 Feb, [facility] [place] [facility] [address] [id number] [place] 1866 Feb, [facility] [place] [facility] [address] [id number] [place] [address]- 9245 Feb, [facility] [place] [facility] [address] [id number] [place] [address]- 5034 13 Feb, 2014 [facility] [place] [facility] [address] [id number] [place] [address]- 7373 Jan, 2013 [facility] [place] [facility] [address] [id number] [place] [address]- 3989 Jan, 2013 [facility] [place] [facility] [address] [id number] [place] [address]- 9092 Jan, 2013 [facility] [place] [facility] [address] [id number] [place] [address]- 2415 Jan, 2013 [facility] [place] [facility] [address] [id number] [place] [address]- 9907 Jan, 2013 [facility] [place] [facility] [address] [id number] [place] [address]- 8087 Jan, 2013 [facility] [place] [facility] [address] [id number] [place] [address]- 8289 Jan, 2013 [facility] [place] [facility] [address] [id number] [place] [address]- 4232 Jan, 2013 [facility] [place] [facility] [address] [id number] [place] [address]- 8535 Jan, 2013 [facility] [place] [facility] [address] [id number] [place] [address]- 2892 Jan, 2013 [facility] [place] [facility] [address] [id number] [place] [address]- 3654 Dec, [facility] [place] [facility] [address] [id number] [place] [address]- 7432 Dec, [facility] [place] [facility] [address] [id number] [place] [address]- 3736 Nov, [facility] [place] [facility] [address] [id number] [place] [address]- 1815 Nov, [facility] [place] [facility] [address] [id number] [place] [address]- 7728 Nov, 2013 [facility] [place] [facility] [address] [id number] [place] [address]- 5053 Nov, 2013 [facility] [place] [facility] [address] [id number] [place] [address]- 4723 Nov, 2013 [facility] [place] [facility] [address] [id number] [place] [address]- 9647 Nov, 2013 [facility] [place] [facility] [address] [id number] [place] [address]- 3184 Nov, 2013 [facility] [place] [facility] [address] [id number] [place] [address]- 84[address] Nov, 2013 [facility] [place] [facility] [address] [id number] [place] [address] Nov, 2013 [facility] [place] [facility] [address] [id number] [place] [address] Nov, 2013 [facility] [place] [facility] [address] [id number] [place] [address] Nov, 2013 [facility] [place] [facility] [address] [id number] [place] [address] Nov, 2013 [facility] [place] [facility] [address] [id number] [place] [address] Oct, [facility] [place] [facility] [address] [id number] [place] [address] Oct, [facility] [place] [facility] [address] [id number] [place] [address] Oct, [facility] [place] [facility] [address] [id number] [place] [address] Oct, [facility] [place] [facility] [address] [id number] [place] [address] Oct, [facility] [place] [facility] [address] [id number] [place] [address] Oct, [facility] [place] [facility] [address] [id number] [place] [address] Oct, [facility] [place] [facility] [address] [id number] [place] [address] Oct, [facility] [place] [facility] [address] [id number] [place] [address] September, [facility] [place] [facility] [address] [id number] [place] [address] September, [facility] [place] [facility] [address] [id number] [place] [address]- [address] September, [facility] [place] [facility] [address] [id number] [place] [address]- [address] September, [facility] [place] [facility] [address] [id number] [place] [address] September, [facility] [place] [facility] [address] [id number] [place] [address] September, [facility] [place] [facility] [address] [id number] [place] [address]- [address] September, [facility] [place] [facility] [address] [id number] [place] [address] September, [facility] [place] [facility] [address] [id number] [place] [address] September, [facility] [place] [facility] [address] [id number] [place] [address]- [address] September, [facility] [place] [facility] [address] [id number] [place] [address] Aug, [facility] [place] [facility] [address] [id number] [place] [address] Aug, [facility] [place] [facility] [address] [id number] [place] [address]- [address] Aug, [facility] [place] [facility] [address] [id number] [place] [address] 30 Aug, 2013 [facility] [place] [facility] [address] [id number] [place] [address] Aug, [facility] [place] [facility] [address] [id number] [place] [address]- [address] Aug, [facility] [place] [facility] [address] [id number] [place] [address]- [address] Aug, [facility] [place] [facility] [address] [id number] [place] [address] 16 Aug, 2013 [facility] [place] [facility] [address] [id number] [place] [address] Aug, [facility] [place] [facility] [address] [id number] [place] [address] Aug, [facility] [place] [facility] [address] [id number] [place] [address] Aug, [facility] [place] [facility] [address] [id number] [place] [address]- [address] Aug, [facility] [place] [facility] [address] [id number] [place] [address] Aug, [facility] [place] [facility] [address] [id number] [place] [address] Aug, [facility] [place] [facility] [address] [id number] [place] [address]- [address] 24 Jul, 2013 [facility] [place] [facility] [address] [id number] [place] [address] 24 Jul, 2013 [facility] [facility] [address] [id number] [place] [id number] 05 Jul, 2013 [facility] [place] [facility] [address] [id number] [place] [address] 05 Jul, 2013 [facility] [place] [facility] [address] [id number] [place] [address] Jun, [facility] [place] [facility] [address] [id number] [place] [address] Jun, [facility] [place] [facility] [address] [id number] [place] [address] Jun, [facility] [place] [facility] [address] [facility] [id number] [place] [address] Jun, [facility] [place] [facility] [address] [id number] [place] [address] Jun, [facility] [place] [facility] [address] [id number] [place] [address] Jun, [facility] [place] [facility] [address] [facility] [id number] [place] [address] Jun, [facility] [place] [facility] [address] [facility] [id number] [place] [address] May, [facility] [place] [facility] [address] [id number] [place] [address] May, [facility] [place] [facility] [address] [facility] [id number] [place] [address] May, [facility] [place] [facility] [address] [facility] [id number] [place] [address] May, [facility] [place] [facility] [address] [facility] [id number] [place] [address]295 May, [facility] [place] [facility] [address] [id number], [place] [address] May, [facility] [place] [facility] [address] [id number] [place] [address] Apr, [facility] [place] [facility] [address] [facility] [id number] [place] [address] Apr, [facility] [place] [facility] [address] [facility] [id number] [place] [address] Mar, [facility] [place] [facility] [address] [id number] [place] [address] Mar, [facility] [place] [facility] [address] [id number] [place] [address] Mar, [facility] [place] [facility] [address] [id number] [place] [address] Mar, [facility] [place] [facility] [address] [id number] [place] [address] 5332 Mar, [facility] [place] [facility] [address] [id number] [place] [address] 269[address] Mar, [facility] [place] [facility] [address] [id number] [place] [address] 8[address] Feb, [facility] [place] [facility] [address] [id number] [place] [address] Feb, [facility] [place] [facility] [address] [id number] [place] [address]- [address]381 Feb, [facility] [place] [facility] [address] [id number] [place] [address] 1649 Feb, [facility] [place] [facility] [address] [id number] [place] [address]605 Feb, [facility] [place] [facility] [address] [id number] [place] [address] Jan, [facility] [place] [facility] [address] [id number] [place] [address] Dec, [facility] [place] [facility] [address] [id number] [place] [address]67 Dec, [facility] [place] [facility] [address] [id number] [place] [address] Oct, [facility] [address] [id number] [place] [address]46 Oct, [facility] [address] [id number] [place] [address] Oct, [facility] [address] [id number] [place] [address] September, [facility] [address] [id number] [place] [address] September, [facility] [address] [id number] [place] [address]39 Aug, [facility] [address] [id number] [place] [address] Aug, [facility] [address] [id number] [place] [address] Jul, [facility] [address] [id number] [place] [address] May, [facility] [address] [id number] [place] [address] 2942 May, [facility] [address] [id number] [place] [address] 9658 Apr, [facility] [address] [id number] [place] [address] 9726 Apr, [facility] [address] [id number] [place] [address] 1933 Apr, [facility] [address] [id number] [place] [address]- 6977 Apr, [facility] [address] [id number], [place] [address] Apr, [facility] [address] [id number] [place] [address] Apr, [facility] [address] [id number] [place] [address]- 1106 Apr, [facility] [address] [id number] [place] [address]- 5918 Apr, [facility] [address] [id number] [place] [address] Mar, [facility] [address] [id number] [place] [address]- [address]376 Mar, [facility] [address] [id number] [place] [address] Feb, [facility] [address] [id number] [place] [address]156 Feb, [facility] [address] [id number] [place] [address] 1967 Feb, [facility] [address] [id number] [place] [address] 2504 Jan, [facility] [address] [id number] [place] [address] 9[address] Jan, [facility] [address] [id number] [place] [address]- 2589 Dec, [facility] [address] [id number] [place] [address]- 8525 Dec, [facility] [address] [id number] [place] [address]- [address]40 Dec, [facility] [address] [facility] [id number] [place] [address]378 Dec, [facility] [address] [id number] [place] [address]- 5446 Nov, [facility] [address] [id number] [place] [address]- 7672 Nov, [facility] [address] [id number] [place] [address]- 9[address] Nov, [facility] [address] [id number] [place] [address]- 8686 September, [facility] [address] [id number] [place] [address]- [address]359 September, [facility] [place] [address] [id number] [place] [address]- [address] September, [facility] [place] [address] [facility] [id number] [place] [address]- 7966 Aug, [facility] [place] [address] [facility] [id number] [place] [address]- [address]606 Jun, [facility] [place] [address] [facility] [id number] [place] [address]- 9263 May, [facility] [place] [address] [facility] [id number] [place] [address]- 4721 Apr, [facility] [place] [address] [facility] [id number] [place] [address] Apr, [facility] [place] [address] [facility] [id number] [place] [address] Apr, [facility] [place] [address] [facility] [id number], [place] [address]478 Mar, [facility] [place] [address] [facility] [id number] [place] [address] Mar, [facility] [place] [address] [id number], [place] [address] Feb, [facility] [place] [address] [id number], [place] [address] Feb, [facility] [place] [address] [facility] [id number][place] [address]- 0765 Feb, [facility] [place] [address] [facility] [id number][place] [address] Feb, [facility] [place] [address] [facility] [id number], [place] [address]- 1006 Nov, [facility] [place] [address] [facility] [id number], [place] [address] Oct, IMMUNIZATIONS No Known Immunizations SOCIAL HISTORY Never Assessed REASON FOR VISIT f/u wt management: tip garcia, Would like to discuss restarting/refilling medications, Having gastric sleeve in approx 10 days at [place] PLAN OF CARE Activity Details Follow Up 2 Months Reason:FU from Bariatric surgery VITAL SIGNS Height 70 in 2017-12-25 Weight 353 lbs 2017-12-25 Temperature 97.8 degrees Fahrenheit 2017-12-25 Heart Rate 72 bpm 2017-12-25 Respiratory Rate 22 2017-12-25 Oximetry 98 % 2017-12-25 BMI 50.64 kg/m2 2017-12-25 Blood pressure systolic 126 mmHg 2017-12-25 Blood pressure diastolic 70 mmHg 2017-12-25 MEDICATIONS Medication Instructions Dosage Frequency Start Date End Date Duration Status Brovana 15 MCG/2ML Inhalation Twice a day 1 vial in nebulizer 12h Active Albuterol Sulfate (2.5 MG/3ML) 0.083% Inhalation every 4 hrs 1 vial in nebuizer as needed for cough or wheeze 4h Active Albuterol Sulfate HFA 108 (90 Base) MCG/ACT Inhalation every 6 hrs 2 puffs as needed 6h Aug, 90 days Active Alprazolam 1 MG Orally Twice a day 1 tablet 12h Dec, 28 days Active Budesonide 0.5 MG/2ML Inhalation Twice a day 1 vial in nebulizer 12h Active Zolpidem Tartrate 5 mg Orally Once a day 1 tablet at bedtime 24h Dec, 28 days Active Advair Diskus 250-50 MCG/DOSE Inhalation Twice a day 1 puff 12h Aug, 90 days Active Lisinopril 40 mg Orally Once a day 1 tablet 24h Active RESULTS No Results PROCEDURES Procedure Date Ordered Result Body Site [facility] VISIT ESTABLISHED PATIENT Dec 25, 2017 INSTRUCTIONS MEDICATIONS ADMINISTERED No Known Medications MEDICAL (GENERAL) HISTORY Type Description Date Medical History hypertension Medical History chronic obstructive pulmonary disease (COPD) Medical History diverticulitis Medical History gastroesophageal reflux disease (GERD) Medical History obesity Medical History PFT 01/2017 Mod obstructive Defect Medical History Acute kidney injury Medical History Sepsis Surgical History tonsillectomy Surgical History orthopedic surgery Surgical History cataract removal 05/2015 Surgical History Right Shoulder 2017 Surgical History Right knee scope with meniscus repair 2018 Hospitalization History Hospitalization for surgery only Hospitalization History sepsis at [facility] 08/2017
--- OUTSIDE RECORDS SUMMARY | 2018-04-04 14:20 | XMS REPORT ---
Author Author JENNIFER FERRELL Organization [facility] Address [address] [place] [address] Care Team Providers Care Getter Filler Name Role Phone JENNIFER FERRELL Unavailable PROBLEMS Type Condition ICD9-CM Code [id number] Code Onset Dates Condition Status SNOMED Code Problem Obstructive sleep apnea syndrome G47.33 Active 89099920 Problem Other obesity due to excess calories E66.09 Active 96347189050323 Problem Body mass index (BMI) of 50-59.9 in adult Z68.43 Active 325245148 Problem Other chronic pain G89.29 Active 75565875 Problem Essential hypertension I10 Active 84440135 Problem Chronic obstructive pulmonary disease with (acute) exacerbation J44.1 Active 151008941 Problem Other emphysema J43.8 Active 09989244 Problem Thrombocytopenia D69.6 Active 116899010 Problem Acute exacerbation of chronic obstructive pulmonary disease (COPD) J44.1 Active 486718285 Problem Gastroesophageal reflux disease without esophagitis K21.9 Active 946301930 Problem Dysthymia F34.1 Active 67284753 Problem Mild intermittent asthma without complication J45.20 Active 095781411 Problem Insomnia G47.00 Active 549507436 Problem Anxiety F41.9 Active 31581921 Problem Primary insomnia F51.01 Active 8151802 Problem Low back pain M54.5 Active 604011777 Problem Shortness of breath R06.02 Active 921659541 Problem Chronic obstructive pulmonary disease, unspecified J44.9 Active 26018718 ALLERGIES No Information ENCOUNTERS Encounter Location Date Diagnosis [facility] [address] [facility] [id number] [address] Feb, Pain in right knee M25.561 [facility] [address] [id number] [address] Feb, Status post bariatric surgery Z98.84 ; Chronic obstructive pulmonary disease, unspecified J44.9 ; Pain in right knee M25.561 ; Pain in left knee M25.562 ; Other chronic pain G89.29 ; Encounter for immunization Z23 and BMI 45.0-49.9, adult Z68.42 [place] [id number] [place] [address] 17776- 8556 16 Feb, 2018 Primary insomnia F51.01 [place] [address] [address]- 0444 14 Jan, 2018 Anxiety F41.9 and Primary insomnia F51.01 [place] [address] 9[address]72- 9055 Dec, Anxiety F41.9 ; Primary insomnia F51.01 ; Low back pain M54.5 ; BMI 50.0-59.9, adult Z68.43 ; Shortness of breath R06.02 and Essential hypertension I10 [place] [address] [address]- 7907 Dec, Low back pain M54.5 and Primary insomnia F51.01 [place] [address] 89130- 7487 Dec, [place] [address] 33222- 5120 Nov, Acute exacerbation of chronic obstructive pulmonary disease (COPD) J44.1 ; Primary insomnia F51.01 and Low back pain M54.5 [place] [address] 6[address]51- 1499 September, BMI 50.0-59.9, adult Z68.43 and Chronic obstructive pulmonary disease, unspecified COPD type J44.9 [place] [address] 60262- 9015 Aug, Chronic obstructive pulmonary disease, unspecified J44.9 ; Primary insomnia F51.01 ; Low back pain M54.5 and BMI 50.0-59.9, adult Z68.43 [place] [address] 40608- 1394 16 Aug, 2017 Shortness of breath R06.02 ; Loose stools R19.5 and BMI 50.0 -59.9, adult Z68.43 [place] [address] 58995- 9769 11 Aug, 2017 Acute renal injury N17.9 and Thrombocytopenia D69.6 [place] [address] 81258- 4318 May, [place] [address] 46841- 8842 Apr, [facility] [address] [address] -1506 Mar, Acute exacerbation of chronic obstructive pulmonary disease (COPD) J44.1 ; BMI 50.0-59.9, adult Z68.43 and BMI 60.0-69.9, adult Z68.44 [place] [address] 24275- 2868 Mar, [place] [address] 88692- 4934 Feb, Right anterior shoulder pain M25.511 ; Encounter for immunization Z23 ; Other emphysema J43.8 ; Other obesity due to excess calories E66.09 ; Body mass index (BMI) of 50-59.9 in adult Z68.43 and Low back pain M54.5 [place] [id number] [place] [address] 77816- 6850 Feb, [place] [address] 73291- 8885 Feb, Low back pain M54.5 [place] [address] 67554- 8395 Jan, [place] [address] 77657- 1720 Jan, Low back pain M54.5 [facility] [id number] [place] [address] 02043- 6826 Dec, Shortness of breath R06.02 [facility] [id number] [place] [address] 20260- 2979 Dec, Low back pain M54.5 [facility] [id number] [place] [address] 54417- 9011 Nov, Low back pain M54.5 [facility] [id number] [place] [address] 50582- 6383 Oct, [facility] [id number] [place] [address] 40060- 3932 Oct, Low back pain M54.5 [facility] [id number] [place] [address] 89306- 0760 September, Low back pain M54.5 [facility] [id number] [place] [address] 39180 -6851 September, Sore throat J02.9 and Strep throat J02.0 [facility] [id number] [place] [address] 80789- 0356 September, [facility] [id number] [place] [address] 85593- 6777 Aug, Low back pain M54.5 [facility] [id number] [place] [address] 29207- 6898 Aug, Medicare welcome exam Z00.00 ; Prostate cancer screening Z12.5 ; Encounter for screening for lung cancer Z12.2 and Lipid screening Z13.220 [facility] [id number] [place] [address] 13694- 7855 Jul, [facility] [id number] [place] [address] 54166- 6916 Jul, Low back pain M54.5 [facility] [id number] [place] [address] 19746- 2994 Jul, [facility] [id number] [place] [address] 43237- 4321 Jun, [facility] [address] 66943- 5089 Jun, Anxiety F41.9 and Low back pain M54.5 [facility] [address] 07801- 0538 Jun, Shortness of breath R06.02 [facility] [id number] [place] [address] 28238- 3076 May, Anxiety F41.9 and Low back pain M54.5 [facility] [id number] [place] [address] 86633- 3779 May, [facility] [address] 14336- 4448 Apr, [facility] [id number] [place] [address] 50043- 6095 Apr, Chronic obstructive pulmonary disease, unspecified J44.9 [facility] [id number] [place] [address] 05987- 3939 Apr, [facility] [id number] [place] [address] 19556- 0405 Apr, Chronic obstructive pulmonary disease, unspecified J44.9 [facility] [id number] [place] [address] 34845- 2336 Apr, [facility] [id number] [place] [address] 94726- 8854 Apr, Anxiety F41.9 and Low back pain M54.5 [facility] [id number] [place] [address] 01118- 4402 Mar, Encounter for immunization Z23 ; Obstructive sleep apnea syndrome G47.33 ; Low back pain M54.5 and Anxiety F41.9 [facility] [address] [address]- 7635 Mar, Chronic obstructive pulmonary disease, unspecified J44.9 [facility] [id number] [place] [address] 38894- 8767 Mar, Chronic obstructive pulmonary disease, unspecified J44.9 [facility] [id number] [place] [address] 72449- 4476 Mar, Chronic obstructive pulmonary disease, unspecified J44.9 [facility] [id number] [place] [address] 41540- 8181 Feb, [facility] [id number] [place] [address] 42871- 3046 Feb, [facility] [id number] [place] [address] 92698- 2140 Feb, Chronic obstructive pulmonary disease, unspecified J44.9 [facility] [id number] [place] [address] 58328- 2136 Feb, [facility] [id number] [place] [address] 55480- 4045 Feb, Low back pain M54.5 ; Anxiety F41.9 and Bronchitis J40 [facility] [id number] [place] [address] 30664- 4815 Jan, [facility] [id number] [place] [address] 83102 2540 15 Jan, 2016 Anxiety F41.9 [facility] [id number] [place] [address] 29125 2545 12 Jan, 2016 Chronic obstructive pulmonary disease, unspecified J44.9 [facility] [id number] [place] [address] 82927 2549 06 Jan, 2016 Low back pain M54.5 [facility] [id number] [place] [address] 60482- 9412 Dec, Vertigo R42 [facility] [address] [address]- 8069 Dec, [facility] [id number] [place] [address] 27538- 0851 Nov, [facility] [id number] [place] [address] 30513- 4605 Nov, Low back pain M54.5 and Anxiety F41.9 [facility] [id number] [place] [address] 08033- 8455 Nov, [facility] [id number] [place] [address] 18558- 6861 Nov, [facility] [id number] [place] [address] 69091- 0095 Oct, Low back pain M54.5 and Anxiety F41.9 [facility] [id number] [place] [address] 52033- 0619 September, [facility] [id number] [place] [address] 21938- 5850 Aug, Shortness of breath R06.02 [facility] [id number] [place] [address] 30967- 5891 Aug, Shortness of breath R06.02 [facility] [id number] [place] [address] 29618- 4687 Aug, [facility] [id number] [place] [address] 85776- 8460 Jul, Insomnia G47.00 and Shortness of breath R06.02 [facility] [id number] [place] [address] 10367- 0791 Jul, [facility] [id number] [place] [address] 68669- 3611 Jul, [facility] [id number] [place] [address] 86775- 1689 Jul, Bronchitis J40 [facility] [address] [facility] [id number] [place] [address]- 4773 Jul, [facility] [address] [facility] [id number] [place] [address]- 6561 Jun, [facility] [address] [facility] [id number] [place] [address]- 4927 Jun, [facility] [address] [facility] [id number] [place] [address]- 5926 May, [facility] [address] [facility] [id number] [place] [address]- 1039 May, [facility] [address] [facility] [id number] [place] [address], [place] [address]- 2226 Apr, [facility] [address] [address]- 7420 Apr, [facility] [address] [address]- 6435 Mar, [facility] [id number] [address]- 8875 Mar, [facility] [address] [address]- 6394 Mar, [facility] [address] [address]- 4558 Feb, [facility] [place] [facility] [address] [address]- 5851 Feb, [facility] [address] [address]- 1399 08 Feb, 2015 Chronic obstructive pulmonary disease, unspecified J44.9 [facility] [place] [facility] [address] [facility] [id number] [place] [address]- 7398 23 Jan, 2015 [facility] [address] [address]- 1127 Jan, [facility] [address] [facility] [id number] [place] [address]- 9438 Dec, [facility] [address] [address]- 5936 Dec, [facility] [address] [address]- 9646 Dec, High risk medication use V58.69 ; Back pain 724.5 ; Insomnia 780.52 ; Screening, lipid V77.91 and Screening for prostate cancer V76.44 [facility] [address] [facility] [id number] [place] [address]- 2292 Nov, [facility] [address] [facility] [id number] [place] [address]- 6879 Nov, [facility] [address] [address]- 8879 Nov, [facility] [address] [address]- 4119 Oct, [facility] [id number] [address]- 3078 Oct, [facility] [id number] [address]- 3406 September, [facility] [address] [address]- 1566 Aug, [facility] [address] [facility] [id number] [place] [address]- 7016 Aug, [facility] [address] [facility] [id number] [place] [address]- 3546 Jul, [facility] [address] [facility] [id number] [place] [address]- 9276 Jul, [facility] [address] [id number] [address]- 2546 Jul, [facility] [address] [facility] [id number] [place] [address]- 9508 Jul, [facility] [place] [facility] [address] [id number] [place] [address]- 1319 Jul, [facility] [place] [facility] [address] [id number] [place] [address]- 0187 Jul, [facility] [place] [facility] [address] [id number] [place] [address]- 4757 Jun, 2014 [facility] [place] [facility] [address] [id number] [place] [address]- 2612 Jun, 2014 [facility] [place] [facility] [address] [id number] [place] [address]- 5650 Jun, 2014 [facility] [place] [facility] [address] [id number] [place] [address]- 0516 Jun, [facility] [place] [facility] [address] [id number] [place] [address]- 8109 May, [facility] [place] [facility] [address] [id number] [place] [address]- 3782 May, [facility] [place] [facility] [address] [id number] [place] [address]- 6861 May, [facility] [place] [facility] [address] [facility] [id number] [place] [address]- 7253 May, [facility] [place] [facility] [address] [id number] [place] [address]- 6663 May, [facility] [place] [facility] [address] [id number] [place] [address]- 8851 May, [facility] [place] [facility] [address] [id number] [place] [address]- 5692 Apr, [facility] [place] [facility] [address] [id number] [place] [address]- 1616 Apr, [facility] [place] [facility] [address] [id number] [place]- 3855 Mar, [facility] [place] [facility] [address] [id number] [place] [address]- 1443 Mar, [facility] [place] [facility] [address] [id number] [place] [address]- 2693 Mar, [facility] [place] [facility] [address] [id number] [place] [address]- 8666 Mar, [facility] [place] [facility] [address] [id number] [place] [address]- 5871 Feb, [facility] [place] [facility] [address] [id number] [place] [address]- 1288 Feb, [facility] [place] [facility] [address] [id number] [place] [address]- 5191 Feb, [facility] [place] [facility] [address] [id number] [place] [address]- 6185 Feb, [facility] [place] [facility] [address] [id number] [place] [address]- 2435 Jan, [facility] [place] [facility] [address] [id number] [place] [address]- 8375 23 Jan, 2014 [facility] [place] [facility] [address] [id number] [place] [address]- 0789 17 Jan, 2014 [facility] [place] [facility] [address] [id number] [place] [address]- 7866 17 Jan, 2013 [facility] [place] [facility] [address] [id number] [place] [address]- 4152 Sep, 2013 [facility] [place] [facility] [address] [id number] [place] [address]- 6641 Sep, 2013 [facility] [place] [facility] [address] [id number] [place] [address]- 7812 Jan, 2013 [facility] [place] [facility] [address] [id number] [place] [address]- 0795 Jan, 2013 [facility] [place] [facility] [address] [id number] [place] [address]- 8658 Jan, [facility] [place] [facility] [address] [id number] [place] [address]- 5620 Jan, [facility] [place] [facility] [address] [id number] [place] [address]- 2088 Dec, [facility] [place] [facility] [address] [id number] [place] [address]- 4608 Dec, [facility] [place] [facility] [address] [id number] [place] [address]- 7972 Nov, [facility] [place] [facility] [address] [id number] [place] [address]- 4830 Nov, [facility] [place] [facility] [address] [id number] [place] [address]- 3595 Nov, [facility] [place] [facility] [address] [id number] [place] [address]- 2009 Nov, 2013 [facility] [place] [facility] [address] [id number] [place] [address]- 7743 Nov, [facility] [place] [facility] [address] [id number] [place] [address]- 8321 Nov, 2013 [facility] [place] [facility] [address] [id number] [place] [address]- 0181 Nov, [facility] [place] [facility] [address] [id number] [place] [address]- 3501 Nov, 2013 [facility] [place] [facility] [address] [id number] [place] [address]- 7050 Nov, [facility] [place] [facility] [address] [id number] [place] [address]- 1734 Nov, [facility] [place] [facility] [address] [id number] [place] [address]- 7888 Nov, [facility] [place] [facility] [address] [id number] [place] [address]- 2535 Nov, [facility] [place] [facility] [address] [id number] [place] [address]- 1803 Oct, [facility] [place] [facility] [address] [id number] [place] [address]- 6245 Oct, [facility] [place] [facility] [address] [id number] [place] [address]- 7247 Oct, [facility] [place] [facility] [address] [id number] [place] [address]- 8006 Oct, [facility] [place] [facility] [address] [id number] [place] [address]- 9906 Oct, [facility] [place] [facility] [address] [id number] [place] [address]- 5572 Oct, [facility] [place] [facility] [address] [id number] [place] [address]- 0411 Oct, [facility] [place] [facility] [address] [id number] [place] [address]- 9715 Oct, [facility] [place] [facility] [address] [id number] [place] [address]- 0887 September, [facility] [place] [facility] [address] [id number] [place] [address]- 2873 September, [facility] [place] [facility] [address] [id number] [place] [address]- 8041 September, [facility] [place] [facility] [address] [id number] [place] [address]- 5148 September, [facility] [place] [facility] [address] [id number] [place] [address]- 4063 September, [facility] [place] [facility] [address] [id number] [place] [address]- 9070 September, [facility] [place] [facility] [address] [id number] [place] [address] September, [facility] [place] [facility] [address] [id number] [place] [address] September, [facility] [place] [facility] [address] [id number] [place] [address] September, [facility] [place] [facility] [address] [id number] [place] [address] September, [facility] [place] [facility] [address] [id number] [place] [address] Aug, [facility] [place] [facility] [address] [id number] [place] [address] Aug, [facility] [place] [facility] [address] [id number] [place] [address] Aug, [facility] [place] [facility] [address] [id number] [place] [address] Aug, [facility] [place] [facility] [address] [id number] [place] [address] Aug, [facility] [place] [facility] [address] [id number] [place] [address] Aug, [facility] [place] [facility] [address] [id number] [place] [address] Aug, [facility] [place] [facility] [address] [id number] [place] [address] Aug, [facility] [place] [facility] [address] [id number] [place] [address] Aug, [facility] [place] [facility] [address] [id number] [place] [address] Aug, [facility] [place] [facility] [address] [id number] [place] [address] Aug, [facility] [place] [facility] [address] [id number] [place] [address] Aug, [facility] [place] [facility] [address] [id number] [place] [address] Aug, [facility] [place] [facility] [address] [id number] [place] [address] Aug, [facility] [place] [facility] [address] [id number] [place] [address] Jul, [facility] [place] [facility] [address] [id number] [place] [address] Jul, [facility] [place] [facility] [address] [id number] [place] [address] Jul, [facility] [place] [facility] [address] [id number] [place] [address] Jul, [facility] [place] [facility] [address] [id number] [place] [address] Jun, [facility] [place] [facility] [address] [id number] [place] [address] Jun, [facility] [place] [facility] [address] [id number] [place] [address] Jun, [facility] [place] [facility] [address] [id number] [place] [address] Jun, [facility] [place] [facility] [address] [id number] [place] [address] Jun, [facility] [place] [facility] [address] [facility] [id number] [place] [address] Jun, [facility] [place] [facility] [address] [id number] [place] [address] Jun, [facility] [place] [facility] [address] [id number] [place] [address] May, [facility] [place] [facility] [address] [id number] [place] [address] May, [facility] [place] [facility] [address] [facility] [id number] [place] [address] May, [facility] [place] [facility] [address] [id number] [place] [address] May, [facility] [place] [facility] [address] [id number] [place] [address] May, [facility] [place] [facility] [address] [id number] [place] [address] May, [facility] [place] [facility] [address] [id number] [place] [address] Apr, [facility] [place] [facility] [address] [id number] [place] [address] Apr, [facility] [place] [facility] [address] [id number] [place] [address] Mar, [facility] [place] [facility] [address] [id number] [place] [address] Mar, [facility] [place] [facility] [address] [id number] [place] [address] Mar, [facility] [place] [facility] [address] [id number] [place] [address] Mar, [facility] [place] [facility] [address] [id number] [place] [address] Mar, [facility] [place] [facility] [address] [id number] [place] [address] Mar, [facility] [place] [facility] [address] [id number] [place] [address] Feb, [facility] [place] [facility] [address] [id number] [place] [address] Feb, [facility] [place] [facility] [address] [id number] [place] [address] Feb, [facility] [place] [facility] [address] [id number] [place] [address] 18 Feb, 2013 [facility] [place] [facility] [address] [id number] [address] 16 Feb, 2013 [facility] [place] [facility] [address] [id number] [place] [address] Jan, [facility] [address] [id number] [place] [address] Dec, [facility] [address] [id number] [place] [address] Dec, [facility] [address] [id number] [place] [address] Oct, [facility] [place] [facility] [address] [id number] [place] [address] Oct, [facility] [address] [id number] [place] [address] Oct, [facility] [address] [id number] [place] [address] September, [facility] [address] [id number] [place] [address] September, [facility] [address] [id number] [place] [address] Aug, [facility] [address] [id number] [place] [address] Aug, [facility] [address] [id number] [place] [address] Jul, [facility] [address] [id number] [place] [address] May, [facility] [address] [id number] [place] [address] May, [facility] [place] [facility] [address] [id number] [place] [address] Apr, [facility] [place] [facility] [address] [id number] [place] [address] Apr, [facility] [address] [id number] [place] [address] Apr, [facility] [place] [facility] [address] [id number] [place] [address] Apr, [facility] [place] [facility] [address] [id number] [place] [address] Apr, [facility] [place] [facility] [address] [id number] [place] [address] Apr, [facility] [place] [facility] [address] [id number] [place] [address], [place] [address] Apr, [facility] [place] [facility] [address] [id number] [place] [address] Apr, [facility] [place] [facility] [address] [id number] [place] [address] Mar, [facility] [place] [facility] [address] [id number] [place] [address] Mar, [facility] [place] [facility] [address] [id number] [place] [address] Feb, [facility] [place] [facility] [address] [id number] [place] [address] Feb, [facility] [place] [facility] [address] [id number] [place] [address] Feb, [facility] [place] [facility] [address] [id number] [place] [address] Jan, [facility] [place] [facility] [address] [id number] [place] [address] Jan, [facility] [place] [facility] [address] [id number] [place] [address] Dec, [facility] [place] [facility] [address] [id number] [place] [address] Dec, [facility] [place] [facility] [address] [id number] [place] [address] Dec, [facility] [place] [facility] [address] [id number] [place] [address] Dec, [facility] [place] [facility] [address] [id number] [place] [address] Nov, [facility] [place] [facility] [address] [id number] [place] [address] Nov, [facility] [place] [facility] [address] [id number] [place] [address] Nov, [facility] [place] [facility] [address] [id number] [place] [address] September, [facility] [place] [facility] [address] [id number] [place] [address] September, [facility] [place] [facility] [address] [id number] [place] [address] September, [facility] [place] [facility] [address] [id number] [place] [address] Aug, [facility] [place] [facility] [address] [id number] [place] [address] Jun, [facility] [place] [facility] [address] [id number] [place] [address] May, [facility] [place] [facility] [address] [id number] [place] [address] Apr, [facility] [place] [facility] [address] [id number] [place] [address] Apr, [facility] [place] [facility] [address] [id number] [place] [address] Apr, [facility] [place] [facility] [address] [id number] [place] [address] Mar, [facility] [place] [facility] [address] [id number] [place] [address] Mar, [facility] [place] [facility] [address] [id number] [place] [address] Feb, [facility] [place] [facility] [address] [facility] [id number] [place] [address] Feb, [facility] [address] [facility] [id number] [place] [address] Feb, [facility] [address] [facility] [id number] [place] [address] Feb, [facility] [address] [facility] [id number] [place] [address] Nov, [facility] [address] [facility] [id number] [place] [address] Oct, IMMUNIZATIONS No Known Immunizations SOCIAL HISTORY Never Assessed REASON FOR VISIT Rx clarificiation PLAN OF CARE VITAL SIGNS MEDICATIONS Medication Instructions Dosage Frequency Start Date End Date Duration Status Diclofenac Sodium 1 % Transdermal 3 times a day Apply 4 grams to right knee as needed for pain 8h Feb, 30 days Active RESULTS No Results PROCEDURES No [...] for surgery only Hospitalization History sepsis at [facility] 08/2017
--- OUTSIDE RECORDS SUMMARY | 2018-04-04 14:21 | XMS REPORT ---
Author Author JENNIFER FERRELL Organization [facility] Address [address] [place] [address] Care Team Providers Care Drug Regulatory Affairs Specialist Name Role Phone JENNIFER FERRELL Unavailable PROBLEMS Type Condition ICD9-CM Code EXD11-ZH Code Onset Dates Condition Status SNOMED Code Problem Obstructive sleep apnea syndrome G47.33 Active 38792351 Problem Other emphysema J43.8 Active 82680477 Problem Body mass index (BMI) of 50-59.9 in adult Z68.43 Active 072585836 Problem Essential hypertension I10 Active 52761577 Problem Thrombocytopenia D69.6 Active 525008944 Problem Acute exacerbation of chronic obstructive pulmonary disease (COPD) J44.1 Active 579742864 Problem Other obesity due to excess calories E66.09 Active 55653469231150 Problem Chronic obstructive pulmonary disease, unspecified COPD type J44.9 Active 30358914 Problem Chronic obstructive pulmonary disease with (acute) exacerbation J44.1 Active 081837117 Problem Mild intermittent asthma without complication J45.20 Active 756896714 Problem Primary insomnia F51.01 Active 2219943 Problem Gastroesophageal reflux disease without esophagitis K21.9 Active 925754627 Problem Insomnia G47.00 Active 887550032 Problem Anxiety F41.9 Active 22074328 Problem Dysthymia F34.1 Active 65292538 Problem Low back pain M54.5 Active 973773191 Problem Shortness of breath R06.02 Active 712333262 Problem Chronic obstructive pulmonary disease, unspecified J44.9 Active 66682668 ALLERGIES No Information ENCOUNTERS Encounter Location Date Diagnosis [facility] [id number], [place] [address] Jan, Anxiety F41.9 [address] Primary insomnia F51.01 [facility] [id number] [address] Dec, Anxiety F41.9 ; Primary insomnia F51.01 ; Low back pain M54.5 ; BMI 50.0-59.9, adult Z68.43 ; Shortness of breath R06.02 and Essential hypertension I10 [place] [address] [address]- [address] Dec, Low back pain M54.5 and Primary insomnia F51.[address] [address]- [address] Dec, [place] [address] [address]- 9[address] Nov, Acute exacerbation of chronic obstructive pulmonary disease (COPD) J44.1 ; Primary insomnia F51.01 and Low back pain M54.5 [place] [address] [address]- [address] September, BMI 50.0-59.9, adult Z68.43 and Chronic obstructive pulmonary disease, unspecified COPD type J44.[address] [address]- [address] Aug, Chronic obstructive pulmonary disease, unspecified J44.9 ; Primary insomnia F51.01 ; Low back pain M54.5 and BMI 50.0-59.9, adult Z68.43 [place] [address] [address]- [address] 16 Aug, 2017 Shortness of breath R06.02 ; Loose stools R19.5 and BMI 50.0 -59.9, adult Z68.43 [place] [id number] [place] [address]91- 2147 Aug, Acute renal injury N17.9 and Thrombocytopenia D69.[address] [address]- [address] May, [place] [address] [address]- [address] Apr, [facility] [address] [place] [address] Mar, Acute exacerbation of chronic obstructive pulmonary disease (COPD) J44.1 ; BMI 50.0-59.9, adult Z68.43 and BMI 60.0-69.9, adult Z68.44 [facility] [id number] [place] [address] 34728- 9165 Mar, [facility] [address] [address]- [address] Feb, Right anterior shoulder pain M25.511 ; Encounter for immunization Z23 ; Other emphysema J43.8 ; Other obesity due to excess calories E66.09 ; Body mass index (BMI) of 50-59.9 in adult Z68.43 and Low back pain M54.5 [facility] [id number] [place] [address] 95800- 3763 Feb, [facility] [address] [address]886- 1064 Feb, Low back pain M54.5 [facility] [address] [address]- [address] Jan, [facility] [address] 40444- 8380 Jan, Low back pain M54.5 [facility] [id number] [place] [address] 65078- 4529 Dec, Shortness of breath R06.02 [facility] [id number] [place] [address] 84598- 7241 Dec, Low back pain M54.5 [facility] [address] 41151- 9234 Nov, Low back pain M54.5 [facility] [id number] [place] [address] 70827- 2994 Oct, [facility] [address] 21716- 1817 Oct, Low back pain M54.5 [facility] [id number] [place] [address] 85147- 9933 September, Low back pain M54.5 [facility] [id number] [place] [address] 95925 -4290 September, Sore throat J02.[address] throat J02.0 [facility] [id number] [place] [address] 38919- 6200 September, [facility] [id number] [place] [address] 04497- 3848 Aug, Low back pain M54.5 [facility] [id number] [place] [address] 77957- 1791 Aug, Medicare welcome exam Z00.00 ; Prostate cancer screening Z12.5 ; Encounter for screening for lung cancer Z12.2 and Lip[address] screening Z13.220 [facility] [id number] [place] [address] 69081- 9526 Jul, [facility] [id number] [place] [address] 36103- 7710 Jul, Low back pain M54.5 [facility] [id number] [place] [address] 43039- 0542 Jul, [facility] [id number] [place] [address] 04174- 3503 Jun, [facility] [id number] [place] [address] 44801- 3588 Jun, Anxiety F41.9 and Low back pain M54.5 [facility] [id number] [place] [address] 88581- 5553 15 Jun, 2016 Shortness [address]06[address]02 [facility] [id number] [place] [address] 51814- 3310 May, Anxiety F41.9 and Low back pain M54.5 [facility] [id number] [place] [address] 50667- 6042 May, [facility] [id number] [place] [address] 63527- 3570 Apr, [facility] [id number] [place] [address] 86442- 7718 Apr, Chronic obstructive pulmonary disease, unspecified J44.9 [facility] [id number] [place] [address] 71847- 2555 Apr, [facility] [id number] [place] [address] 63697- 3350 Apr, Chronic obstructive pulmonary disease, unspecified J44.9 [facility] [id number] [place] [address] 80287- 5629 Apr, [facility] [address] 17473- 6330 Apr, Anxiety F41.9 and Low back pain M54.5 [facility] [id number] [place] [address] 53066- 0306 Mar, Encounter for immunization Z23 ; Obstructive sleep apnea syndrome G47.33 ; Low back pain M54.[address] [facility] [id number] [place] [address] 30802- 6115 Mar, Chronic obstructive pulmonary disease, unspecified J44.9 [facility] [id number] [place] [address] 15698- 4133 Mar, Chronic obstructive pulmonary disease, unspecified J44.9 [facility] [id number] [place] [address] 70016- 7031 Mar, Chronic obstructive pulmonary disease, unspecified J44.9 [facility] [id number] [place] [address] 20491- 0851 Feb, [facility] [address] [place] [address]- [address]32 Feb, [facility] [id number] [place] [address] 81314- 0391 Feb, Chronic obstructive pulmonary disease, unspecified J44.9 [facility] [id number] [place] [address] 13792- 2056 Feb, [facility] [id number] [place] [address] 09040- 6987 Feb, Low back pain M54.5 ; Anxiety F41.[address] [facility] [id number] [place] [address] 06467- 5553 Jan, [facility] [id number] [place] [address] 35464- 9592 Jan, Anxiety F41.9 [facility] [id number] [place] [address] 93802- 4281 Jan, Chronic obstructive pulmonary disease, unspecified J44.9 [facility] [id number] [place] [address] 36838- 5010 Jan, Low back pain M54.5 [facility] [id number] [place] [address] 14083- 0809 Dec, Vertigo R42 [facility] [id number] [place] [address] 65864- 4996 Dec, [facility] [id number] [place] [address] 07856- 4956 Nov, [facility] [id number] [place] [address] 96825- 1791 Nov, Low back pain M54.[address] [facility] [id number] [place] [address] 71798 2546 Nov, [facility] [id number] [place] [address] 70477- 0205 Nov, [facility] [id number] [place] [address] 70647- 1755 Oct, Low back pain M54.[address] [facility] [id number] [place] [address] 14714- 7493 September, [facility] [id number] [place] [address] 23749- 6585 Aug, Shortness of breath R06.02 [facility] [id number] [place] [address] 60930- 3450 Aug, Shortness of breath R06.02 [facility] [id number] [place] [address] 63458- 3042 Aug, [facility] [id number] [place] [address] 19875- 1451 Jul, Insomnia G47.00 and Shortness of breath R06.02 [facility] [id number] [place] [address] 13680- 9330 Jul, [facility] [id number] [place] [address] 43807- 9327 Jul, [facility] [id number] [place] [address] 85803- 5133 Jul, Bronchitis J40 [facility] [id number] [place] [address] 85310- 1645 Jul, [facility] [id number] [place] [address] 74414- 2995 Jun, [facility] [id number] [place] [address] 50261- 9156 Jun, [facility] [id number] [place] [address] 81640- 4788 May, [facility] [address] [place] [address] 90437- 7857 May, [facility] [address] [address]- 9691 Apr, [facility] [address]286 Apr, [facility] [address] [address] 9001 Mar, [facility] [id number] [place] [address] 80300- 2840 Mar, [facility] [id number] [place] [address] 56849- 3681 Mar, [facility] [id number] [place] [address] 23684- 9176 Feb, [facility] [id number] [place] [address] 31065- 7545 Feb, [facility] [id number] [place] [address] 06786- 8293 Feb, Chronic obstructive pulmonary disease, unspecified J44.9 [facility] [address], [place] [address]- 0530 Jan, [facility] [address] [address] 6940 Jan, [facility] [address] [address] 4753 Dec, [facility] [address], [place] [address]- 2134 Dec, [facility] [id number] [address]- 6529 Dec, High risk medication use V58.69 ; Back pain 724.5 ; Insomnia 780.52 ; Screening, lipid V77.91 and Screening for prostate cancer V76.44 [facility] [address] [address]- 7819 Nov, [facility] [place] [facility] [address] [id number] [place] [address]- 8701 Nov, [facility] [place] [facility] [address] [id number] [place] [address]- 1368 Nov, [facility] [place] [facility] [address] [id number] [place] [address]- 6723 Oct, [facility] [place] [facility] [address] [id number] [place] [address]- 2061 Oct, [facility] [place] [facility] [address] [id number] [place] [address]- 4939 September, [facility] [place] [facility] [address] [id number] [place] [address]- 3045 Aug, [facility] [place] [facility] [address] [id number] [place] [address]- 8956 Aug, [facility] [place] [facility] [address] [id number] [place] [address]- 1496 Jul, [facility] [place] [facility] [address] [id number] [place] [address]- 8117 Jul, [facility] [place] [facility] [address] [id number] [place] [address]- 3940 Jul, [facility] [place] [facility] [address] [id number] [place] [address]- 4344 Jul, [facility] [place] [facility] [address] [id number] [place] [address]- 3982 Jul, [facility] [place] [facility] [address] [id number] [place] [address]- 1827 Jul, [facility] [place] [facility] [address] [id number] [place] [address]- 9302 Jun, [facility] [place] [facility] [address] [id number] [place] [address]- 5812 Jun, [facility] [place] [facility] [address] [id number] [place] [address]- 3579 Jun, [facility] [place] [facility] [address] [id number] [place] [address]- 7133 Jun, [facility] [place] [facility] [address] [id number] [place] [address]- 2427 May, [facility] [place] [facility] [address] [id number] [place] [address]- 1774 May, [facility] [place] [facility] [address] [id number] [place] [address]- 8049 May, [facility] [place] [facility] [address] [id number] [place] [address]- 4870 May, [facility] [place] [facility] [address] [id number] [place] [address]- 8468 May, [facility] [place] [facility] [address] [id number] [place] [address]- 0949 May, [facility] [place] [facility] [address] [id number] [place] [address]- 4592 Apr, [facility] [place] [facility] [address] [id number] [place] [address]- 2094 Apr, [facility] [place] [facility] [address] [id number] [place] [address]- 0467 Mar, [facility] [place] [facility] [address] [id number] [address]- 8467 Mar, [facility] [place] [facility] [address] [id number] [address]- 3256 Mar, [facility] [place] [facility] [address] [id number] [place] [address]- 0109 Mar, [facility] [place] [facility] [address] [id number] [place] [address]- 4605 Feb, [facility] [place] [facility] [address] [id number] [place] [address]- 1075 Feb, [facility] [place] [facility] [address] [id number] [place] [address]- 7869 Feb, [facility] [place] [facility] [address] [id number] [place] [address]- 0378 Feb, [facility] [place] [facility] [address] [id number] [place] [address]- 0543 Jan, 2013 [facility] [place] [facility] [address] [id number] [place] [address]- 8733 Jan, 2013 [facility] [place] [facility] [address] [id number] [place] [address]- 5348 Jan, 2013 [facility] [place] [facility] [address] [id number] [place] [address]- 7929 Jan, 2013 [facility] [place] [facility] [address] [id number] [place] [address]- 7651 Jan, 2013 [facility] [place] [facility] [address] [id number] [place] [address]- 7015 Jan, 2013 [facility] [place] [facility] [address] [id number] [place] [address]- 2922 Jan, 2013 [facility] [place] [facility] [address] [id number] [place] [address]- 5429 Jan, 2013 [facility] [place] [facility] [address] [id number] [place] [address]- 3562 Jan, [facility] [place] [facility] [address] [id number] [place] [address]- 8100 Jan, 2013 [facility] [place] [facility] [address] [id number] [place] [address]- 0479 Dec, [facility] [place] [facility] [address] [id number] [place] [address]- 0989 Dec, [facility] [place] [facility] [address] [id number] [place] [address]- 3045 Nov, [facility] [place] [facility] [address] [id number] [place] [address]- 1979 Nov, [facility] [place] [facility] [address] [id number] [place] [address]- 5674 Nov, 2013 [facility] [place] [facility] [address] [id number] [place] [address]- 9876 Nov, 2013 [facility] [place] [facility] [address] [id number] [place] [address]- 6129 Nov, 2013 [facility] [place] [facility] [address] [id number] [place] [address]- 9919 Nov, 2013 [facility] [place] [facility] [address] [id number] [place] [address]- 0102 Nov, 2013 [facility] [place] [facility] [address] [id number] [place] [address]- 4776 Nov, 2013 [facility] [place] [facility] [address] [id number] [place] [address]- 5422 Nov, 2013 [facility] [place] [facility] [address] [id number] [place] [address]- 1755 Nov, 2013 [facility] [place] [facility] [address] [id number] [place] [address]- 5194 Nov, 2013 [facility] [place] [facility] [address] [id number] [place] [address]- 3226 Nov, [facility] [place] [facility] [address] [id number] [place] [address]- 7479 Oct, [facility] [place] [facility] [address] [id number] [place] [address]- 0856 Oct, [facility] [place] [facility] [address] [id number] [place] [address]- 9251 Oct, [facility] [place] [facility] [address] [id number] [place] [address]- 4915 Oct, [facility] [place] [facility] [address] [id number] [place] [address]- 5479 Oct, [facility] [place] [facility] [address] [id number], [place] [address]- 7799 Oct, [facility] [place] [facility] [address] [id number] [place] [address]- 9004 Oct, [facility] [place] [facility] [address] [id number] [place] [address]- 1327 Oct, [facility] [place] [facility] [address] [id number] [place] [address]- 7529 September, [facility] [place] [facility] [address] [id number] [place] [address]- 8687 September, [facility] [place] [facility] [address] [id number] [place] [address]- 6691 September, [facility] [place] [facility] [address] [id number] [place] [address]- 2448 September, [facility] [place] [facility] [address] [id number] [place] [address]- 7899 September, [facility] [place] [facility] [address] [id number] [place] [address]- 8276 September, [facility] [place] [facility] [address] [id number] [place] [address]- 3970 September, [facility] [place] [facility] [address] [id number] [place] [address]- 5627 September, [facility] [place] [facility] [address] [id number] [place] [address] September, [facility] [place] [facility] [address] [id number] [place] [address] September, [facility] [place] [facility] [address] [id number] [place] [address] Aug, [facility] [place] [facility] [address] [id number] [place] [address] Aug, [facility] [place] [facility] [address] [id number] [place] [address] Aug, [facility] [place] [facility] [address] [id number] [place] [address] 30 Aug, 2013 [facility] [place] [facility] [address] [id number] [place] [address] Aug, [facility] [place] [facility] [address] [id number] [place] [address] Aug, [facility] [place] [facility] [address] [id number] [place] [address] Aug, [facility] [place] [facility] [address] [id number] [place] [address] 16 Aug, 2013 [facility] [place] [facility] [address] [id number] [place] [address] Aug, [facility] [place] [facility] [address] [id number] [place] [address] Aug, [facility] [place] [facility] [address] [id number] [place] [address] Aug, [facility] [place] [facility] [address] [id number] [place] [address] Aug, [facility] [place] [facility] [address] [id number] [place] [address] Aug, [facility] [place] [facility] [address] [id number] [place] [address] Aug, [facility] [place] [facility] [address] [id number] [place] [address] 24 Jul, 2013 [facility] [place] [facility] [address] [id number] [place] [address]- [address] 24 Jul, 2013 [facility] [place] [facility] [address] [id number] [place] [address] 05 Jul, 2013 [facility] [place] [facility] [address] [id number] [place] [address] 05 Jul, 2013 [facility] [place] [facility] [address] [id number] [place] [address] Jun, [facility] [place] [facility] [address] [id number] [place] [address] Jun, [facility] [place] [facility] [address] [id number] [place] [address] Jun, [facility] [place] [facility] [address] [facility] [id number] [place] [address] Jun, [facility] [place] [facility] [address] [id number] [place] [address] Jun, [facility] [place] [facility] [address] [id number] [place] [address] Jun, [facility] [place] [facility] [address] [facility] [id number] [place] [address] Jun, [facility] [place] [facility] [address] [facility] [id number] [place] [address] May, [facility] [place] [facility] [address] [facility] [id number] [place] [address] May, [facility] [place] [facility] [address] [facility] [id number] [place] [address]- [address] May, [facility] [place] [facility] [address] [facility] [id number] [place] [address] May, [facility] [place] [facility] [address] [facility] [id number] [place] [address] 94[address] May, [facility] [place] [facility] [address] [facility] [id number] [place] [address] May, [facility] [place] [facility] [address] [facility] [id number] [place] [address] Apr, [facility] [place] [facility] [address] [facility] [id number] [place] [address] Apr, [facility] [place] [facility] [address] [facility] [id number] [place] [address] Mar, [facility] [place] [facility] [address] [id number] [place] [address] Mar, [facility] [place] [facility] [address] [id number] [place] [address] Mar, [facility] [place] [facility] [address] [id number] [place] [address] Mar, [facility] [place] [facility] [address] [id number] [place] [address]- [address] Mar, [facility] [place] [facility] [address] [id number] [place] [address] 79[address] Mar, [facility] [place] [facility] [address] [id number] [place] [address]- [address]193 Feb, [facility] [place] [facility] [address] [id number] [place] [address] Feb, [facility] [place] [facility] [address] [id number] [place] [address]- [address] Feb, [facility] [place] [facility] [address] [id number] [place] [address] Feb, [facility] [place] [facility] [address] [id number] [place] [address] Feb, [facility] [place] [facility] [address] [id number] [place] [address] Jan, [facility] [place] [facility] [address] [id number] [place] [address] Dec, [facility] [place] [facility] [address] [id number] [place] [address] Dec, [facility] [place] [facility] [address] [id number] [place] [address] Oct, [facility] [place] [facility] [address] [id number] [place] [address] Oct, [facility] [place] [facility] [address] [id number] [place] [address] Oct, [facility] [address] [id number] [place] [address] September, [facility] [place] [facility] [address] [id number] [place] [address] September, [facility] [place] [facility] [address] [id number] [place] [address] Aug, [facility] [place] [facility] [address] [id number] [place] [address] Aug, [facility] [address] [id number] [place] [address] Jul, [facility] [place] [facility] [address] [id number] [place] [address] May, [facility] [place] [facility] [address] [id number] [place] [address] May, [facility] [address] [id number] [place] [address] Apr, [facility] [place] [facility] [address] [id number] [place] [address] Apr, [facility] [place] [facility] [address] [id number] [place] [address] Apr, [facility] [place] [facility] [address] [id number] [place] [address] Apr, [facility] [place] [facility] [address] [id number], [place] [address] Apr, [facility] [place] [facility] [address] [id number] [place] [address] Apr, [facility] [place] [facility] [address] [id number] [place] [address] Apr, [facility] [place] [facility] [address] [id number] [place] [address] Apr, [facility] [place] [facility] [address] [id number] [place] [address] Mar, [facility] [place] [facility] [address] [id number] [place] [address] Mar, [facility] [place] [facility] [address] [id number] [place] [address] Feb, [facility] [place] [facility] [address] [id number] [place] [address] Feb, [facility] [place] [facility] [address] [id number] [place] [address] Feb, [facility] [place] [facility] [address] [id number] [place] [address] Jan, [facility] [place] [facility] [address] [id number] [place] [address] Jan, [facility] [place] [facility] [address] [id number] [place] [address] Dec, [facility] [place] [facility] [address] [id number] [place] [address] Dec, [facility] [place] [facility] [address] [id number] [place] [address] Dec, [facility] [place] [facility] [address] [id number] [place] [address] Dec, [facility] [place] [facility] [address] [id number] [place] [address] Nov, [facility] [place] [facility] [address] [id number] [place] [address] Nov, [facility] [place] [facility] [address] [id number] [place] [address] Nov, [facility] [place] [facility] [address] [id number] [place] [address] September, [facility] [place] [facility] [address] [id number] [place] [address] September, [facility] [address] [id number] [address] September, [facility] [address] [facility] [id number] [place] [address] Aug, [facility] [address] [facility] [id number] [place] [address] Jun, [facility] [address] [facility] [id number] [place] [address] May, [facility] [address] [id number] [place] [address] Apr, [facility] [address] [facility] [id number] [place] [address] Apr, [facility] [address] [facility] [id number] [place] [address] Apr, [facility] [address] [facility] [id number] [address] Mar, [facility] [address] [id number] [address] Mar, [facility] [address] [id number] [address] Feb, [facility] [id number] [address] Feb, [facility] [address] [facility] [id number][place] [address] Feb, [facility] [address] [facility] [id number] [address] Feb, [facility] [address] [facility] [id number] [address] Nov, [facility] [address] [facility] [id number], [place] [address] Oct, IMMUNIZATIONS No Known Immunizations SOCIAL HISTORY Never Assessed REASON FOR VISIT Refill request PLAN OF CARE VITAL SIGNS MEDICATIONS Medication Instructions Dosage Frequency Start Date End Date Duration Status Lisinopril 20 mg Orally Once a day 1 tablet 24h 30 days Active RESULTS No Results PROCEDURES [...] for surgery only Hospitalization History sepsis at [facility] 08/2017
--- OUTSIDE RECORDS SUMMARY | 2018-04-04 14:21 | XMS REPORT ---
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 Name Role Phone JENNIFER FERRELL Unavailable PROBLEMS Type Condition ICD9-CM Code [id number] Code Onset Dates Condition Status SNOMED Code Problem Obstructive sleep apnea syndrome G47.33 Active 87875789 Problem Other emphysema J43.8 Active 24667674 Problem Body mass index (BMI) of 50-59.9 in adult Z68.43 Active 362597600 Problem Essential hypertension I10 Active 04809519 Problem Thrombocytopenia D69.6 Active 542269308 Problem Acute exacerbation of chronic obstructive pulmonary disease (COPD) J44.1 Active 204700062 Problem Other obesity due to excess calories E66.09 Active 14624548732525 Problem Chronic obstructive pulmonary disease, unspecified COPD type J44.9 Active 41722125 Problem Chronic obstructive pulmonary disease with (acute) exacerbation J44.1 Active 376693516 Problem Mild intermittent asthma without complication J45.20 Active 298617909 Problem Primary insomnia F51.01 Active 7050851 Problem Gastroesophageal reflux disease without esophagitis K21.9 Active 401989878 Problem Insomnia G47.00 Active 728136460 Problem Anxiety F41.9 Active 16651069 Problem Dysthymia F34.1 Active 60349013 Problem Low back pain M54.5 Active 198334453 Problem Shortness of breath R06.02 Active 402907873 Problem Chronic obstructive pulmonary disease, unspecified J44.9 Active 17390041 ALLERGIES No Information ENCOUNTERS Encounter Location Date Diagnosis [facility] [id number], [place] [address] Jan, Anxiety F41.9 and Primary insomnia F51.01 [facility] [address] [id number], [place] [address] Dec, Anxiety F41.9 ; Primary insomnia F51.01 ; Low back pain M54.5 ; BMI 50.0-59.9, adult Z68.43 ; Shortness of breath R06.02 and Essential hypertension I10 [place] [address] [address]- [address] Dec, Low back pain M54.5 and Primary insomnia F51.[address] [address]- [address] Dec, [place] [address] [address]- [address] Nov, Acute exacerbation of chronic obstructive pulmonary disease (COPD) J44.1 ; Primary insomnia F51.01 and Low back pain M54.5 [place] [address] [address]- [address] September, BMI 50.0-59.9, adult Z68.43 and Chronic obstructive pulmonary disease, unspecified COPD type J44.[address] [address]- [address] Aug, Chronic obstructive pulmonary disease, unspecified J44.9 ; Primary insomnia F51.01 ; Low back pain M54.5 and BMI 50.0-59.9, adult Z68.43 [place] [address] [address]- [address] 16 Aug, 2017 Shortness of breath R06.02 ; Loose stools R19.5 and BMI 50.0 -59.9, adult Z68.43 [place] [id number] [place] [address] 19160- 5231 Aug, Acute renal injury N17.9 and Thrombocytopenia D69.[address] [address]- [address] May, [place] [address] [address]- [address] Apr, [facility] [address] [place] [address] Mar, Acute exacerbation of chronic obstructive pulmonary disease (COPD) J44.1 ; BMI 50.0-59.9, adult Z68.43 and BMI 60.0-69.9, adult Z68.44 [facility] [id number] [place] [address] 69958- 9439 Mar, [facility] [address] [address]- [address] Feb, Right anterior shoulder pain M25.511 ; Encounter for immunization Z23 ; Other emphysema J43.8 ; Other obesity due to excess calories E66.09 ; Body mass index (BMI) of 50-59.9 in adult Z68.43 and Low back pain M54.5 [facility] [id number] [place] [address] 35937- 8755 Feb, [facility] [address] [address]- 5865 Feb, Low back pain M54.5 [facility] [address] [address]- 6[address] Jan, [facility] [address] [address]- 0808 Jan, Low back pain M54.5 [facility] [id number] [place] [address] 41505- 4137 Dec, Shortness of breath R06.02 [facility] [id number] [place] [address] 26403- 2035 Dec, Low back pain M54.5 [facility] [address] 30289- 9106 Nov, Low back pain M54.5 [facility] [id number] [place] [address] 59585- 0340 Oct, [facility] [address] 28394- 1481 Oct, Low back pain M54.5 [facility] [id number] [place] [address] 05864- 0154 September, Low back pain M54.5 [facility] [id number] [place] [address]007 -5104 September, Sore throat J02.9 and Strep throat J02.0 [facility] [id number] [place] [address] 78746- 7991 September, [facility] [id number] [place] [address] 92815- 2190 Aug, Low back pain M54.5 [facility] [id number] [place] [address] 86993- 2161 Aug, Medicare welcome exam Z00.00 ; Prostate cancer screening Z12.5 ; Encounter for screening for lung cancer Z12.2 and Lipid screening Z13.220 [facility] [id number] [place] [address] 41206- 1509 Jul, [facility] [id number] [place] [address] 58569- 4061 Jul, Low back pain M54.5 [facility] [id number] [place] [address] 17768- 2342 Jul, [facility] [id number] [place] [address] 58702- 7527 Jun, [facility] [id number] [place] [address] 91649- 2877 Jun, Anxiety F41.9 and Low back pain M54.5 [facility] [id number] [place] [address] 69420- 9696 15 Jun, 2016 Shortness of breath R06.02 [facility] [id number] [place] [address] 09803- 1621 May, Anxiety F41.9 and Low back pain M54.5 [facility] [id number] [place] [address] 19849- 6750 May, [facility] [id number] [place] [address] 57257- 5927 Apr, [facility] [id number] [place] [address] 35438- 9582 Apr, Chronic obstructive pulmonary disease, unspecified J44.9 [facility] [id number] [place] [address] 65832- 3624 Apr, [facility] [id number] [place] [address] 08393- 0358 Apr, Chronic obstructive pulmonary disease, unspecified J44.9 [facility] [id number] [place] [address] 38096- 7289 Apr, [facility] [address] 26177- 5696 Apr, Anxiety F41.9 and Low back pain M54.5 [facility] [id number] [place] [address] 56412- 4209 Mar, Encounter for immunization Z23 ; Obstructive sleep apnea syndrome G47.33 ; Low back pain M54.5 and Anxiety F41.9 [facility] [id number] [place] [address] 07057- 2817 Mar, Chronic obstructive pulmonary disease, unspecified J44.9 [facility] [id number] [place] [address] 95123- 3456 Mar, Chronic obstructive pulmonary disease, unspecified J44.9 [facility] [id number] [place] [address] 93520- 5333 Mar, Chronic obstructive pulmonary disease, unspecified J44.9 [facility] [id number] [place] [address] 67033- 4616 Feb, [facility] [address] [place] [address]- 5849 Feb, [facility] [id number] [place] [address] 69522- 4990 Feb, Chronic obstructive pulmonary disease, unspecified J44.9 [facility] [id number] [place] [address] 83539- 6016 Feb, [facility] [id number] [place] [address] 98127- 9062 Feb, Low back pain M54.5 ; Anxiety F41.9 and Bronchitis J40 [facility] [id number] [place] [address] 16660- 3817 Jan, [facility] [id number] [place] [address] 64585- 3135 Jan, Anxiety F41.9 [facility] [id number] [place] [address] 09313- 2826 Jan, Chronic obstructive pulmonary disease, unspecified J44.9 [facility] [id number] [place] [address] 42870- 0456 Jan, Low back pain M54.5 [facility] [id number] [place] [address] 35507- 3746 Dec, Vertigo R42 [facility] [id number] [place] [address] 56936- 7046 Dec, [facility] [id number] [place] [address] 17264- 0356 Nov, [facility] [address] [place] [address] 74124- 6617 Nov, Low back pain M54.5 and Anxiety F41.9 [facility] [address] [place] [address] 24719 2546 Nov, [facility] [id number] [place] [address] 87778- 2841 Nov, [facility] [address] [place] [address] 05857- 4798 Oct, Low back pain M54.5 and Anxiety F41.9 [facility] [id number] [place] [address] 57820- 5126 September, [facility] [id number] [place] [address] 70458- 3280 Aug, Shortness of breath R06.02 [facility] [id number] [place] [address] 64919- 5485 Aug, Shortness of breath R06.02 [facility] [id number] [place] [address] 76609- 5601 Aug, [facility] [id number] [place] [address] 08271- 7003 Jul, Insomnia G47.00 and Shortness of breath R06.02 [facility] [id number] [place] [address] 51859- 7057 Jul, [facility] [id number] [place] [address] 96563- 7992 Jul, [facility] [id number] [place] [address] 63191- 0321 Jul, Bronchitis J40 [facility] [id number] [place] [address] 08835- 2507 Jul, [facility] [id number] [place] [address] 05979- 0972 Jun, [facility] [id number] [place] [address] 74276- 1821 Jun, [facility] [id number] [place] [address] 55320- 5964 May, [facility] [address] [place] [address] 13683- 7532 May, [facility] [address], [place] [address]- 0167 Apr, [facility] [address] [address]8 Apr, [facility] [address] [address]- 7815 Mar, [facility] [id number] [place] [address] 16008- 2949 Mar, [facility] [id number] [place] [address] 37349- 7253 Mar, [facility] [id number] [place] [address] 11248- 1861 Feb, [facility] [id number] [place] [address] 39878- 8171 Feb, [facility] [id number] [place] [address] 15699- 0717 Feb, Chronic obstructive pulmonary disease, unspecified J44.9 [facility] [address], [place] [address]- 5915 Jan, [facility] [address], [place] [address]- 1344 Jan, [facility] [address] [place] [address]- 8929 Dec, [facility] [address] [place] [address]- 5918 Dec, [facility] [id number], [place] [address]- 5569 Dec, High risk medication use V58.69 ; Back pain 724.5 ; Insomnia 780.52 ; Screening, lipid V77.91 and Screening for prostate cancer V76.44 [facility] [address] [place] [address]- 1302 Nov, [facility] [place] [facility] [address] [id number] [place] [address]- 3247 Nov, [facility] [place] [facility] [address] [id number] [place] [address]- 1471 Nov, [facility] [place] [facility] [address] [id number] [place] [address]- 2797 Oct, [facility] [place] [facility] [address] [id number] [place] [address]- 2863 Oct, [facility] [place] [facility] [address] [id number] [place] [address]- 2256 September, [facility] [place] [facility] [address] [id number] [place] [address]- 8164 Aug, [facility] [place] [facility] [address] [id number] [place] [address]- 5899 Aug, [facility] [place] [facility] [address] [id number] [place] [address]- 0439 Jul, [facility] [place] [facility] [address] [id number] [place] [address]- 8147 Jul, [facility] [place] [facility] [address] [id number] [place] [address]- 4614 Jul, [facility] [place] [facility] [address] [id number] [place] [address]- 3507 Jul, [facility] [place] [facility] [address] [id number] [place] [address]- 3905 Jul, [facility] [place] [facility] [address] [id number] [place] [address]- 1956 Jul, [facility] [place] [facility] [address] [id number] [place] [address]- 3569 Jun, [facility] [place] [facility] [address] [id number] [place] [address]- 0328 Jun, [facility] [place] [facility] [address] [id number] [place] [address]- 0333 Jun, [facility] [place] [facility] [address] [id number] [place] [address]- 8778 Jun, [facility] [place] [facility] [address] [id number] [place] [address]- 6582 May, [facility] [place] [facility] [address] [id number] [place] [address]- 2243 May, [facility] [place] [facility] [address] [id number] [place] [address]- 7099 May, [facility] [place] [facility] [address] [id number] [place] [address]- 8644 May, [facility] [place] [facility] [address] [id number] [place] [address]- 5679 May, [facility] [place] [facility] [address] [id number] [place] [address]- 6511 May, [facility] [place] [facility] [address] [id number] [place] [address]- 7714 Apr, [facility] [place] [facility] [address] [id number] [place] [address]- 1391 Apr, [facility] [place] [facility] [address] [id number] [place] [address]- 9665 Mar, [facility] [place] [facility] [address] [id number], [place] [address]- 9464 Mar, [facility] [place] [facility] [address] [id number], [place] [address]- 2455 Mar, [facility] [place] [facility] [address] [id number] [place] [address]- 3712 Mar, [facility] [place] [facility] [address] [id number] [place] [address]- 2800 Feb, [facility] [place] [facility] [address] [id number] [place] [address]- 8215 Feb, [facility] [place] [facility] [address] [id number] [place] [address]- 9717 Feb, [facility] [place] [facility] [address] [id number] [place] [address]- 8948 Feb, [facility] [place] [facility] [address] [id number] [place] [address]- 3788 Jan, 2013 [facility] [place] [facility] [address] [id number] [place] [address]- 7254 Jan, 2013 [facility] [place] [facility] [address] [id number] [place] [address]- 8873 Jan, 2013 [facility] [place] [facility] [address] [id number] [place] [address]- 4339 Jan, 2013 [facility] [place] [facility] [address] [id number] [place] [address]- 3799 Jan, 2013 [facility] [place] [facility] [address] [id number] [place] [address]- 2813 Jan, 2013 [facility] [place] [facility] [address] [id number] [place] [address]- 8739 Jan, 2013 [facility] [place] [facility] [address] [id number] [place] [address]- 0518 Jan, 2013 [facility] [place] [facility] [address] [id number] [place] [address]- 2482 Jan, [facility] [place] [facility] [address] [id number] [place] [address]- 1280 Jan, 2013 [facility] [place] [facility] [address] [id number] [place] [address]- 5694 Dec, [facility] [place] [facility] [address] [id number] [place] [address]- 8165 Dec, [facility] [place] [facility] [address] [id number] [place] [address]- 1617 Nov, [facility] [place] [facility] [address] [id number] [place] [address]- 6430 Nov, [facility] [place] [facility] [address] [id number] [place] [address]- 4928 Nov, 2013 [facility] [place] [facility] [address] [id number] [place] [address]- 9823 Nov, 2013 [facility] [place] [facility] [address] [id number] [place] [address]- 3571 Nov, 2013 [facility] [place] [facility] [address] [id number] [place] [address]- 5995 Nov, 2013 [facility] [place] [facility] [address] [id number] [place] [address]- 8123 Nov, 2013 [facility] [place] [facility] [address] [id number] [place] [address]- 0593 Nov, 2013 [facility] [place] [facility] [address] [id number] [place] [address]- 7687 Nov, 2013 [facility] [place] [facility] [address] [id number] [place] [address]- 5236 Nov, 2013 [facility] [place] [facility] [address] [id number] [place] [address]- 7360 Nov, 2013 [facility] [place] [facility] [address] [id number] [place] [address]- 0126 Nov, [facility] [place] [facility] [address] [id number] [place] [address]- 6473 Oct, [facility] [place] [facility] [address] [id number] [place] [address]- 5188 Oct, [facility] [place] [facility] [address] [id number] [place] [address]- 3075 Oct, [facility] [place] [facility] [address] [id number] [place] [address]- 1967 Oct, [facility] [place] [facility] [address] [id number] [place] [address]- 1367 Oct, [facility] [place] [facility] [address] [id number], [place] [address]- 4989 Oct, [facility] [place] [facility] [address] [id number] [place] [address]- 0342 Oct, [facility] [place] [facility] [address] [id number] [place] [address]- 4980 Oct, [facility] [place] [facility] [address] [id number] [place] [address]- 5139 September, [facility] [place] [facility] [address] [id number] [place] [address]- 6372 September, [facility] [place] [facility] [address] [id number] [place] [address]- 2257 September, [facility] [place] [facility] [address] [id number] [place] [address]- 4476 September, [facility] [place] [facility] [address] [id number] [place] [address]- 2809 September, [facility] [place] [facility] [address] [id number] [place] [address]- 8291 September, [facility] [place] [facility] [address] [id number] [place] [address]- 7036 September, [facility] [place] [facility] [address] [id number] [place] [address]- 8140 September, [facility] [place] [facility] [address] [id number] [place] [address]- 6635 September, [facility] [place] [facility] [address] [id number] [place] [address]- 9935 September, [facility] [place] [facility] [address] [id number] [place] [address]- 9677 Aug, [facility] [place] [facility] [address] [id number] [place] [address]- 0848 Aug, [facility] [place] [facility] [address] [id number] [place] [address]- 8662 Aug, [facility] [place] [facility] [address] [id number] [place] [address]- 8385 30 Aug, 2013 [facility] [place] [facility] [address] [id number] [place] [address]- 9443 Aug, [facility] [place] [facility] [address] [id number] [place] [address]- 7326 Aug, [facility] [place] [facility] [address] [id number] [place] [address]- 9402 Aug, [facility] [place] [facility] [address] [id number] [place] [address]- 4316 16 Aug, 2013 [facility] [place] [facility] [address] [id number] [place] [address]- 5266 Aug, [facility] [place] [facility] [address] [id number] [place] [address] Aug, [facility] [place] [facility] [address] [id number] [place] [address] Aug, [facility] [place] [facility] [address] [id number] [place] [address] Aug, [facility] [place] [facility] [address] [id number] [place] [address] Aug, [facility] [place] [facility] [address] [id number] [place] [address] Aug, [facility] [place] [facility] [address] [id number] [place] [address] 24 Jul, 2013 [facility] [place] [facility] [address] [id number] [place] [address] 24 Jul, 2013 [facility] [place] [facility] [address] [id number] [place] [address] 05 Jul, 2013 [facility] [place] [facility] [address] [id number] [place] [address] 05 Jul, 2013 [facility] [place] [facility] [address] [id number] [place] [address] Jun, [facility] [place] [facility] [address] [id number] [place] [address] Jun, [facility] [place] [facility] [address] [id number] [place] [address] Jun, [facility] [place] [facility] [address] [facility] [id number] [place] [address] Jun, [facility] [place] [facility] [address] [id number] [place] [address] Jun, [facility] [place] [facility] [address] [id number] [place] [address] Jun, [facility] [place] [facility] [address] [facility] [id number] [place] [address]- [address] Jun, [facility] [place] [facility] [address] [facility] [id number] [place] [address]- [address] May, [facility] [place] [facility] [address] [facility] [id number] [place] [address]- [address] May, [facility] [place] [facility] [address] [facility] [id number] [place] [address]- [address] May, [facility] [place] [facility] [address] [facility] [id number] [place] [address]- [address] May, [facility] [place] [facility] [address] [facility] [id number] [place] [address]- [address] May, [facility] [place] [facility] [address] [facility] [id number] [place] [address]- 2356 May, [facility] [place] [facility] [address] [facility] [id number] [place] [address]- 39[address] Apr, [facility] [place] [facility] [address] [facility] [id number] [place] [address]- [address] Apr, [facility] [place] [facility] [address] [facility] [id number] [place] [address] Mar, [facility] [place] [facility] [address] [id number] [place] [address]- [address] Mar, [facility] [place] [facility] [address] [id number] [place] [address]- [address] Mar, [facility] [place] [facility] [address] [id number] [place] [address]- [address] Mar, [facility] [place] [facility] [address] [id number] [place] [address]- [address] Mar, [facility] [place] [facility] [address] [id number] [place] [address]- 3313 Mar, [facility] [place] [facility] [address] [id number] [place] [address]- 4364 Feb, [facility] [place] [facility] [address] [id number] [place] [address] Feb, [facility] [place] [facility] [address] [id number] [place] [address]- [address] Feb, [facility] [place] [facility] [address] [id number] [place] [address] Feb, [facility] [place] [facility] [address] [id number] [place] [address]- [address] Feb, [facility] [place] [facility] [address] [id number] [place] [address] Jan, [facility] [place] [facility] [address] [id number] [place] [address]- [address] Dec, [facility] [place] [facility] [address] [id number] [place] [address] Dec, [facility] [place] [facility] [address] [id number] [place] [address]- [address] Oct, [facility] [place] [facility] [address] [id number] [place] [address]- [address] Oct, [facility] [place] [facility] [address] [address] [id number] [place] [address] Oct, [facility] [address] [id number] [place] [address] September, [facility] [place] [facility] [address] [id number] [place] [address] September, [facility] [place] [facility] [address] [id number] [place] [address] Aug, [facility] [place] [facility] [address] [id number] [place] [address] Aug, [facility] [address] [id number] [place] [address] Jul, [facility] [place] [facility] [address] [id number] [place] [address] May, [facility] [place] [facility] [address] [id number] [place] [address] May, [facility] [address] [id number] [place] [address] Apr, [facility] [place] [facility] [address] [id number] [place] [address] Apr, [facility] [place] [facility] [address] [id number] [place] [address] Apr, [facility] [place] [facility] [address] [id number] [place] [address] Apr, [facility] [place] [facility] [address] [id number], [place] [address] Apr, [facility] [place] [facility] [address] [id number] [place] [address] Apr, [facility] [place] [facility] [address] [id number] [place] [address] Apr, [facility] [place] [facility] [address] [id number] [place] [address] Apr, [facility] [place] [facility] [address] [id number] [place] [address] Mar, [facility] [place] [facility] [address] [id number] [place] [address] Mar, [facility] [place] [facility] [address] [id number] [place] [address] Feb, [facility] [place] [facility] [address] [id number] [place] [address] Feb, [facility] [place] [facility] [address] [id number] [place] [address] Feb, [facility] [place] [facility] [address] [id number] [place] [address] Jan, [facility] [place] [facility] [address] [id number] [place] [address] Jan, [facility] [place] [facility] [address] [id number] [place] [address] Dec, [facility] [place] [facility] [address] [id number] [place] [address] Dec, [facility] [place] [facility] [address] [id number] [place] [address] Dec, [facility] [place] [facility] [address] [id number] [place] [address] Dec, [facility] [place] [facility] [address] [id number] [place] [address] Nov, [facility] [place] [facility] [address] [id number] [place] [address] Nov, [facility] [place] [facility] [address] [id number] [place] [address] Nov, [facility] [place] [facility] [address] [id number] [place] [address] September, [facility] [place] [facility] [address] [id number] [place] [address] September, [facility] [address] [id number], [place] [address] September, [facility] [address] [facility] [id number] [place] [address] Aug, [facility] [address] [facility] [id number], [place] [address] Jun, [facility] [address] [facility] [id number] [place] [address] May, [facility] [address] [id number] [place] [address] Apr, [facility] [address] [facility] [id number] [place] [address] Apr, [facility] [address] [facility] [id number], [place] [address] Apr, [facility] [address] [facility] [id number], [place] [address] Mar, [facility] [address] [facility] [id number], [place] [address] Mar, [facility] [address] [id number], [place] [address] Feb, [facility] [id number], [place] [address] Feb, [facility] [address] [facility] [id number], [place] [address] Feb, [facility] [address] [facility] [id number], [place] [address] Feb, [facility] [address] [facility] [id number], [place] [address] Nov, [facility] [address] [facility] [id number], [place] [address] Oct, IMMUNIZATIONS No Known Immunizations SOCIAL HISTORY Never Assessed REASON FOR VISIT Refill request PLAN OF CARE VITAL SIGNS MEDICATIONS Unknown [...] surgery only Hospitalization History sepsis at [facility] 08/2017
--- OUTSIDE RECORDS SUMMARY | 2018-04-04 14:22 | XMS REPORT ---
Author Author JENNIFER FERRELL Organization [facility] Address [address] [place] [address] Care Team Providers Care Wind Turbine Technician Name Role Phone JENNIFER FERRELL Unavailable PROBLEMS Type Condition ICD9-CM Code [id number] Code Onset Dates Condition Status SNOMED Code Problem Obstructive sleep apnea syndrome G47.33 Active 83297115 Problem Other emphysema J43.8 Active 01906855 Problem Body mass index (BMI) of 50-59.9 in adult Z68.43 Active 709331449 Problem Essential hypertension I10 Active 49345849 Problem Thrombocytopenia D69.6 Active 358809722 Problem Acute exacerbation of chronic obstructive pulmonary disease (COPD) J44.1 Active 662112936 Problem Other obesity due to excess calories E66.09 Active 09916714351304 Problem Chronic obstructive pulmonary disease, unspecified COPD type J44.9 Active 30464683 Problem Chronic obstructive pulmonary disease with (acute) exacerbation J44.1 Active 074166995 Problem Mild intermittent asthma without complication J45.20 Active 572515606 Problem Primary insomnia F51.01 Active 8787962 Problem Gastroesophageal reflux disease without esophagitis K21.9 Active 900078744 Problem Insomnia G47.00 Active 846696112 Problem Anxiety F41.9 Active 99119495 Problem Dysthymia F34.1 Active 92006986 Problem Low back pain M54.5 Active 565015974 Problem Shortness of breath R06.02 Active 839026058 Problem Chronic obstructive pulmonary disease, unspecified J44.9 Active 28359095 ALLERGIES No Information ENCOUNTERS Encounter Location Date Diagnosis [facility] [address] [facility] [id number] [address] Dec, Anxiety F41.9 ; Primary insomnia F51.01 ; Low back pain M54.5 ; BMI 50.0-59.9, adult Z68.43 ; Shortness of breath R06.02 and Essential hypertension I10 [place] [id number] [place] [address] 03066- 5103 13 Dec, 2017 Low back pain M54.5 and Primary insomnia F51.01 [place] [address] [place] [id number] [place] [address] 25636- 2475 Dec, [place] [address] [place] [id number] [place] [address] 52877- 8387 Nov, Acute exacerbation of chronic obstructive pulmonary disease (COPD) J44.1 ; Primary insomnia F51.01 and Low back pain M54.5 [place] [address] [place] [id number] [place] [address] 07250- 8350 September, BMI 50.0-59.9, adult Z68.43 and Chronic obstructive pulmonary disease, unspecified COPD type J44.9 [place] [address] [id number] [place] [address] 20189- 2980 Aug, Chronic obstructive pulmonary disease, unspecified J44.9 ; Primary insomnia F51.01 ; Low back pain M54.5 and BMI 50.0-59.9, adult Z68.43 [place] [address] [place] [id number] [place] [address] 08062- 2432 16 Aug, 2017 Shortness of breath R06.02 ; Loose stools R19.5 and BMI 50.0 -59.9, adult Z68.43 [place] [address] [place] [id number] [place] [address] 64300- 6553 Aug, Acute renal injury N17.9 and Thrombocytopenia D69.6 [place] [address] [place] [id number] [place] [address] 02801- 9588 May, [place] [address] [id number] [place] [address] 54691- 0429 Apr, [facility] [id number] [place] [address] 77058 -1788 Mar, Acute exacerbation of chronic obstructive pulmonary disease (COPD) J44.1 ; BMI 50.0-59.9, adult Z68.43 and BMI 60.0-69.9, adult Z68.44 [facility] [id number] [place] [address] 25520- 9096 Mar, [facility] [address] [address]- 4211 Feb, Right anterior shoulder pain M25.511 ; Encounter for immunization Z23 ; Other emphysema J43.8 ; Other obesity due to excess calories E66.09 ; Body mass index (BMI) of 50-59.9 in adult Z68.43 and Low back pain M54.5 [facility] [address] [id number] [place] [address] 44762- 8128 Feb, [facility] [address] 9[address]39- 6397 Feb, Low back pain M54.5 [facility] [address] 45492- 5157 Jan, [facility] [address] [id number] [place] [address] 07071- 4321 Jan, Low back pain M54.5 [facility] [id number] [place] [address] 54680- 6275 Dec, Shortness of breath R06.02 [facility] [address] [id number] [place] [address] 18314- 8294 Dec, Low back pain M54.5 [facility] [id number] [place] [address] 02157- 9984 Nov, Low back pain M54.5 [facility] [id number] [place] [address] 00873- 1178 Oct, [facility] [address] [id number] [place] [address] 23807- 9136 Oct, Low back pain M54.5 [facility] [id number] [place] [address] 89646- 7708 September, Low back pain M54.5 [facility] [address] [address] September, Sore throat J02.9 [address] Strep throat J02.0 [facility] [address] [address] 0[address] September, [facility] [address] [id number] [place] [address] 47046- 8177 Aug, Low back pain M54.5 [facility] [address] [place] [address] 17309- 1760 Aug, Medicare welcome exam Z00.00 ; Prostate cancer screening Z12.5 ; Encounter for screening for lung cancer Z12.2 and Lipid screening Z13.220 [facility] [address] [id number] [place] [address] 95970- 0283 Jul, [facility] [id number] [place] [address] 40117- 5838 Jul, Low back pain M54.5 [facility] [address] [id number] [place] [address] 13017- 5594 Jul, [facility] [id number] [place] [address] 53195- 6848 Jun, [facility] [address] [place] [address] 54734- 7814 Jun, Anxiety F41.9 and Low back pain M54.5 [facility] [address] [place] [address] 10058- 1553 Jun, Shortness of breath R06.02 [facility] [address] [place] [id number] [place] [address] 96563- 5233 May, Anxiety F41.9 and Low back pain M54.5 [facility] [address] [address] 36[address] May, [facility] [address], [place] [address] 1996 Apr, [facility] [address] [id number] [place] [address] 21245- 8156 Apr, Chronic obstructive pulmonary disease, unspecified J44.9 [facility] [address] [id number] [place] [address] 74748- 4252 Apr, [facility] [id number] [place] [address] 13729- 5689 Apr, Chronic obstructive pulmonary disease, unspecified J44.9 [facility] [id number] [place] [address] 13785- 2211 Apr, [facility] [id number] [place] [address] 62905- 6540 Apr, Anxiety F41.9 and Low back pain M54.5 [facility] [address] [id number] [place] [address] 10478- 3889 Mar, Encounter for immunization Z23 ; Obstructive sleep apnea syndrome G47.33 ; Low back pain M54.[address] [facility] [address] [id number] [place] [address] 80366- 0563 Mar, Chronic obstructive pulmonary disease, unspecified J44.9 [facility] [address] [id number] [place] [address] 57734- 5341 Mar, Chronic obstructive pulmonary disease, unspecified J44.9 [facility] [address] [place] [address] 02217- 9601 Mar, Chronic obstructive pulmonary disease, unspecified J44.9 [facility] [address] [id number] [place] [address] 06227- 0135 Feb, [facility] [address] [place] [address] 92793- 2844 Feb, [facility] [address] [id number] [place] [address] 59900- 7461 Feb, Chronic obstructive pulmonary disease, unspecified J44.9 [facility] [address] [id number] [place] [address] 82128- 2739 Feb, [facility] [address] [id number] [place] [address] 03656- 0363 Feb, Low back pain M54.5 ; Anxiety F41.[address] [facility] [address] 90752- 9568 Jan, [facility] [address] [id number] [place] [address] 73144- 8460 15 Jan, [address] [facility] [address] [id number] [place] [address] 50396- 0404 Jan, Chronic obstructive pulmonary disease, unspecified J44.9 [facility] [address] [id number] [place] [address] 79727- 8503 Jan, Low back pain M54.5 [facility] [address] [id number] [place] [address] 76601- 7873 Dec, Vertigo R42 [facility] [id number] [place] [address] 73320- 4843 Dec, [facility] [id number] [place] [address] 01397- 7392 Nov, [facility] [id number] [place] [address] 78121- 6885 Nov, Low back pain M54.[address] [facility] [id number] [place] [address] 21027- 6513 Nov, [facility] [id number] [place] [address] 32577- 1715 Nov, [facility] [address] [id number] [place] [address] 92137- 3530 Oct, Low back pain M54.[address] [facility] [address] [address]- 8662 September, [facility] [address] [id number] [place] [address] 29995- 1961 Aug, Shortness of breath R06.02 [facility] [address] [place] [id number] [place] [address] 09451- 7810 Aug, Shortness of breath R06.02 [facility] [address] [id number] [place] [address] 07368- 8778 Aug, [facility] [address] [id number] [place] [address] 76475- 8712 Jul, Insomnia G47.00 and Shortness of breath R06.02 [facility] [address] [id number] [place] [address] 43896- 8180 Jul, [facility] [address] [id number] [place] [address] 07945- 9398 Jul, [facility] [address] [place] [id number] [place] [address] 58914- 6396 Jul, Bronchitis J40 [facility] [address] [id number] [place] [address] 63232- 2270 Jul, [facility] [address] [address]- 4047 Jun, [facility] [address] [id number] [place] [address] 80970- 3837 Jun, [facility] [id number], [place] [address]- 2691 May, [facility] [address] [id number] [place] [address] 50379- 4728 May, [facility] [address], [place] [address]- 8994 Apr, [facility] [address] [place] [address]- 2246 Apr, [facility] [address], [place] [address]- 9735 Mar, [facility] [address]- 6941 Mar, [facility] [address] [place] [address] 040944- 6023 Mar, [facility] [address] [address]- 7245 Feb, [facility] [address] [place] [address] 89987- 9990 Feb, [facility] [id number] [address]- 3224 Feb, Chronic obstructive pulmonary disease, unspecified J44.9 [facility] [id number] [address]- 7539 Jan, [facility] [address] [address]- 8294 Jan, [facility] [address] [place] [address] 67177- 9515 Dec, [facility] [address] [address]- 7082 Dec, [facility] [address], [place] [address]- 2537 Dec, High risk medication use V58.69 ; Back pain 724.5 ; Insomnia 780.52 ; Screening, lipid V77.91 and Screening for prostate cancer V76.44 [facility] [address], [place] [address]- 2083 Nov, [facility] [address], [place] [address]- 3875 Nov, [facility] [address], [place] [address]- 4348 Nov, [facility] [place] [facility] [address] [id number] [place] [address]- 8239 Oct, [facility] [place] [facility] [address] [id number] [place] [address]- 5856 Oct, [facility] [place] [facility] [address] [facility] [id number] [place] [address]- 1809 September, [facility] [place] [facility] [address] [facility] [id number] [place] [address]- 0191 Aug, [facility] [place] [facility] [address] [id number] [place] [address]- 8485 Aug, [facility] [place] [facility] [address] [facility] [id number] [place] [address]- 0177 Jul, [facility] [place] [facility] [address] [place] [id number] [address]- 9496 Jul, [facility] [place] [facility] [address] [facility] [id number] [place] [address]- 7010 Jul, [facility] [place] [facility] [address] [place] [id number] [place] [address]- 0643 Jul, [facility] [place] [facility] [address] [place] [id number] [place] [address]- 6490 Jul, [facility] [place] [facility] [address] [facility] [id number] [place] [address]- 6577 Jul, [facility] [place] [facility] [address] [facility] [id number] [address]- 9399 Jun, [facility] [place] [facility] [address] [id number] [place] [address]- 3571 Jun, [facility] [place] [facility] [address] [facility] [id number] [place] [address]- 0603 Jun, [facility] [place] [facility] [address] [facility] [id number], [place] [address]- 3627 Jun, [facility] [place] [facility] [address] [id number] [place] [address]- 3262 May, [facility] [place] [facility] [address] [id number] [place] [address]- 5724 May, [facility] [place] [facility] [address] [id number] [place] [address]- 3305 May, [facility] [place] [facility] [address] [id number] [place] [address]- 4850 May, [facility] [place] [facility] [address] [id number] [place] [address]- 5845 May, [facility] [place] [facility] [address] [id number] [place] [address]- 9607 May, [facility] [place] [facility] [address] [id number] [place] [address]- 6748 Apr, [facility] [place] [facility] [address] [id number] [place] [address]- 2417 Apr, [facility] [place] [facility] [address] [id number] [place] [address]- 1297 Mar, [facility] [place] [facility] [address] [id number] [place] [address]- 2797 Mar, [facility] [place] [facility] [address] [id number] [place] [address]- 9242 Mar, [facility] [place] [facility] [address] [id number] [place] [address]- 7227 Mar, [facility] [place] [facility] [address] [id number] [place] [address]- 4594 Feb, [facility] [place] [facility] [address] [id number] [place] [address]- 4658 Feb, [facility] [place] [facility] [address] [id number] [place] [address]- 3265 Feb, [facility] [place] [facility] [address] [id number] [place] [address]- 0529 Feb, [facility] [place] [facility] [address] [id number] [place] [address]- 8267 Jan, 2013 [facility] [place] [facility] [address] [id number] [place] [address]- 3646 Jan, 2013 [facility] [place] [facility] [address] [id number] [place] [address]- 4746 Jan, 2013 [facility] [place] [facility] [address] [id number] [place] [address]- 5384 Jan, 2013 [facility] [place] [facility] [address] [id number] [place] [address]- 8272 Jan, 2013 [facility] [place] [facility] [address] [id number] [place] [address]- 1337 Jan, 2013 [facility] [place] [facility] [address] [id number] [place] [address]- 6254 Jan, 2013 [facility] [place] [facility] [address] [id number] [place] [address]- 8431 Jan, 2013 [facility] [place] [facility] [address] [id number] [place] [address]- 6006 Jan, 2013 [facility] [place] [facility] [address] [id number] [place] [address]- 7589 Jan, 2013 [facility] [place] [facility] [address] [id number] [place] [address]- 4839 Dec, [facility] [place] [facility] [address] [id number] [place] [address]- 7151 Dec, [facility] [place] [facility] [address] [id number] [place] [address]- 2144 Nov, [facility] [place] [facility] [address] [id number] [place] [address]- 4183 Nov, [facility] [place] [facility] [address] [id number] [place] [address]- 7883 Nov, [facility] [place] [facility] [address] [id number] [place] [address]- 7441 16 Nov, 2013 [facility] [place] [facility] [address] [id number] [place] [address]- 3712 Nov, 2013 [facility] [place] [facility] [address] [id number] [place] [address]- 6560 Nov, 2013 [facility] [place] [facility] [address] [id number] [place] [address]- 9911 Nov, 2013 [facility] [place] [facility] [address] [id number] [place] [address]- 0450 Nov, 2013 [facility] [place] [facility] [address] [id number] [place] [address]- 7460 Nov, 2013 [facility] [place] [facility] [address] [id number] [place] [address]- 9514 Nov, 2013 [facility] [place] [facility] [address] [id number] [place] [address]- 4163 Nov, 2013 [facility] [place] [facility] [address] [id number] [place] [address]- 2752 Nov, [facility] [place] [facility] [address] [id number] [place] [address]- 4133 Oct, [facility] [place] [facility] [address] [id number] [place] [address]- 6768 Oct, [facility] [place] [facility] [address] [id number] [place] [address]- 0573 Oct, [facility] [place] [facility] [address] [id number] [place] [address]- 1194 Oct, [facility] [place] [facility] [address] [id number] [place] [address]- 6127 Oct, [facility] [place] [facility] [address] [id number] [place] [address]- 1852 Oct, [facility] [place] [facility] [address] [id number] [place] [address] Oct, [facility] [place] [facility] [address] [id number] [place] [address] Oct, [facility] [place] [facility] [address] [id number] [place] [address] September, [facility] [place] [facility] [address] [id number] [place] [address] September, [facility] [place] [facility] [address] [id number] [place] [address] September, [facility] [place] [facility] [address] [id number] [place] [address] September, [facility] [place] [facility] [address] [id number] [place] [address] September, [facility] [place] [facility] [address] [id number] [place] [address] September, [facility] [place] [facility] [address] [id number] [place] [address] September, [facility] [place] [facility] [address] [id number] [place] [address] September, [facility] [place] [facility] [address] [id number] [place] [address] September, [facility] [place] [facility] [address] [id number] [place] [address] September, [facility] [place] [facility] [address] [id number] [place] [address] Aug, [facility] [place] [facility] [address] [id number] [place] [address] Aug, [facility] [place] [facility] [address] [id number] [place] [address] Aug, [facility] [place] [facility] [address] [id number] [place] [address] Aug, [facility] [place] [facility] [address] [id number] [place] [address] Aug, [facility] [place] [facility] [address] [id number] [place] [address] Aug, [facility] [place] [facility] [address] [id number] [place] [address] Aug, [facility] [place] [facility] [address] [id number] [place] [address] Aug, [facility] [place] [facility] [address] [id number] [place] [address] Aug, [facility] [place] [facility] [address] [id number] [place] [address] Aug, [facility] [place] [facility] [address] [id number] [place] [address] Aug, [facility] [place] [facility] [address] [id number] [place] [address] Aug, [facility] [place] [facility] [address] [id number] [place] [address] Aug, [facility] [place] [facility] [address] [id number] [place] [address] Aug, [facility] [place] [facility] [address] [id number] [place] [address] Jul, [facility] [place] [facility] [address] [id number] [place] [address] Jul, [facility] [place] [facility] [address] [id number] [place] [address] Jul, [facility] [place] [facility] [address] [id number] [place] [address] Jul, [facility] [place] [facility] [address] [id number] [place] [address] Jun, [facility] [place] [facility] [address] [id number] [place] [address] Jun, [facility] [place] [facility] [address] [id number] [place] [address] Jun, [facility] [place] [facility] [address] [id number] [place] [address] Jun, [facility] [place] [facility] [address] [id number] [place] [address] Jun, [facility] [place] [facility] [address] [id number] [place] [address] Jun, [facility] [place] [facility] [address] [address] [id number] [place] [address] Jun, [facility] [place] [facility] [address] [id number] [place] [address] May, [facility] [place] [facility] [address] [id number] [place] [address] May, [facility] [place] [facility] [address] [id number] [place] [address] May, [facility] [place] [facility] [address] [id number] [place] [address] May, [facility] [place] [facility] [address] [id number] [place] [address] May, [facility] [place] [facility] [address] [id number] [place] [address] May, [facility] [place] [facility] [address] [id number], [place] [address] Apr, [facility] [place] [facility] [address] [id number] [place] [address] Apr, [facility] [place] [facility] [address] [id number] [place] [address] Mar, [facility] [place] [facility] [address] [id number], [place] [address] Mar, [facility] [place] [facility] [address] [id number], [place] [address] Mar, [facility] [place] [facility] [address] [id number] [place] [address] 1998 Mar, [facility] [place] [facility] [address] [id number] [place] [address] Mar, [facility] [place] [facility] [address] [id number] [place] [address] Mar, [facility] [place] [facility] [address] [id number] [place] [address] Feb, [facility] [place] [facility] [address] [id number] [place] [address] Feb, [facility] [place] [facility] [address] [id number] [place] [address] Feb, [facility] [place] [facility] [address] [id number] [place] [address] Feb, [facility] [place] [facility] [address] [id number] [place] [address] Feb, [facility] [place] [facility] [address] [id number] [place] [address] Jan, [facility] [place] [facility] [address] [id number] [place] [address] Dec, [facility] [place] [facility] [address] [id number] [place] [address] Dec, [facility] [place] [facility] [address] [id number], [place] [address] Oct, [facility] [place] [facility] [address] [id number] [place] [address] Oct, [facility] [place] [facility] [address] [id number] [place] [address] Oct, [facility] [place] [facility] [address] [facility] [id number] [place] [address] September, [facility] [place] [facility] [address] [id number] [place] [address] September, [facility] [address] [id number] [place] [address] Aug, [facility] [place] [facility] [address] [id number] [place] [address] Aug, [facility] [address] [id number] [place] [address] Jul, [facility] [place] [facility] [address] [id number] [place] [address] May, [facility] [address] [id number] [place] [address] May, [facility] [place] [facility] [address] [id number] [place] [address] Apr, [facility] [address] [id number] [place] [address] Apr, [facility] [address] [id number] [place] [address] Apr, [facility] [address] [id number] [place] [address] 1992 Apr, [facility] [address] [id number] [place] [address] Apr, [facility] [place] [facility] [address] [id number] [place] [address] Apr, [facility] [place] [facility] [address] [id number] [place] [address] Apr, [facility] [place] [facility] [address] [id number] [place] [address] Apr, [facility] [place] [facility] [address] [id number] [place] [address] Mar, [facility] [place] [facility] [address] [id number] [place] [address] Mar, [facility] [place] [facility] [address] [id number] [place] [address] Feb, [facility] [place] [facility] [address] [id number] [place] [address] Feb, [facility] [place] [facility] [address] [id number] [place] [address] Feb, [facility] [place] [facility] [address] [id number] [place] [address] Jan, [facility] [place] [facility] [address] [id number] [place] [address] Jan, [facility] [place] [facility] [address] [id number] [place] [address] Dec, [facility] [place] [facility] [address] [id number] [place] [address] Dec, [facility] [place] [facility] [address] [id number] [place] [address] Dec, [facility] [place] [facility] [address] [id number] [place] [address] 96[address] Dec, [facility] [place] [facility] [address] [id number] [place] [address]- 1796 Nov, [facility] [place] [facility] [address] [id number] [place] [address] Nov, [facility] [place] [facility] [address] [id number], [place] [address] Nov, [facility] [place] [facility] [address] [id number] [place] [address] September, [facility] [place] [facility] [address] [id number] [place] [address] 3380 September, [facility] [place] [facility] [address] [id number] [place] [address] September, [facility] [place] [facility] [id number], [place] [address] Aug, [facility] [id number] [address] Jun, [facility] [id number] [address] May, [facility] [address] [address] Apr, [facility] [id number] [address] Apr, [facility] [id number] [place] [address] 1194 Apr, [facility] [id number] [place] [address] Mar, [facility] [id number] [place] [address] Mar, [facility] [id number] [address] Feb, [facility] [id number] [place] [address]20 Feb, [facility] [id number] Feb, [facility] [id number] [address] Feb, [facility] [id number], [place] [address] Nov, [facility] [id number], [place] [address] Oct, IMMUNIZATIONS No Known Immunizations SOCIAL HISTORY Never Assessed REASON FOR VISIT Controlled refill/PRN PLAN OF CARE VITAL SIGNS MEDICATIONS Medication Instructions Dosage Frequency Start Date End Date Duration Status Hydrocodone-Acetaminophen 10-325 MG Orally 3 times a day 1 tablet as needed Nov, 28 days Active ProAir HFA 108 (90 Base) MCG/ACT Inhalation every 4 hrs 2 puffs as needed for short of breath or wheeze 4h 90 Active Zolpidem Tartrate 10 mg Orally Once a day prn 1 tablet at bedtime as needed Aug, 28 days Active RESULTS No Results PROCEDURES [...] for surgery only Hospitalization History sepsis at [facility] 08/2017
--- OUTSIDE RECORDS SUMMARY | 2018-04-04 14:23 | XMS REPORT ---
Author Author JENNIFER FERRELL Organization [facility] Address [address] [place] [address] Care Team Providers Care Tester [employer] Name Role Phone JENNIFER FERRELL Unavailable PROBLEMS Type Condition ICD9-CM Code CGD11-NL Code Onset Dates Condition Status SNOMED Code Problem Chronic obstructive pulmonary disease, unspecified J44.9 Active 85359815 Problem Body mass index (BMI) of 50-59.9 in adult Z68.43 Active 481962006 Problem Obstructive sleep apnea syndrome G47.33 Active 82078765 Problem Thrombocytopenia D69.6 Active 216588840 Problem Chronic obstructive pulmonary disease, unspecified COPD type J44.9 Active 04647916 Problem Other obesity due to excess calories E66.09 Active 40481918853128 Problem Other emphysema J43.8 Active 68758768 Problem Acute exacerbation of chronic obstructive pulmonary disease (COPD) J44.1 Active 638021770 Problem Chronic obstructive pulmonary disease with (acute) exacerbation J44.1 Active 508020057 Problem Gastroesophageal reflux disease without esophagitis K21.9 Active 885134617 Problem Mild intermittent asthma without complication J45.20 Active 042288484 Problem Shortness of breath R06.02 Active 870939111 Problem Insomnia G47.00 Active 896256263 Problem Primary insomnia F51.01 Active 0281040 Problem Anxiety F41.9 Active 28794702 Problem Dysthymia F34.1 Active 95414506 Problem Low back pain M54.5 Active 903094764 ALLERGIES No Known Allergies ENCOUNTERS Encounter Location Date Diagnosis [facility] [address] [address] Dec, [facility] [address] [address] Dec, Low back pain M54.5 and Primary insomnia F51.01 [facility] [id number] [place] [address] 18962- 6439 Dec, [place] [address] [address]- [address] Nov, Acute exacerbation of chronic obstructive pulmonary disease (COPD) J44.1 ; Primary insomnia F51.01 and Low back pain M54.5 [place] [address] [address]81- 4[address] September, BMI 50.0-59.9, adult Z68.43 and Chronic obstructive pulmonary disease, unspecified COPD type J44.9 [place] [address] 7[address]12- 4326 Aug, Chronic obstructive pulmonary disease, unspecified J44.9 ; Primary insomnia F51.01 ; Low back pain M54.5 and BMI 50.0-59.9, adult Z68.43 [place] [address] [address]- [address] 16 Aug, 2017 Shortness of breath R06.02 ; Loose stools R19.5 and BMI 50.0 -59.9, adult Z68.43 [place] [address] 9[address]48- 9100 Aug, Acute renal injury N17.9 and Thrombocytopenia D69.6 [place] [id number] [place] [address] 93116- 1645 May, [place] [address] 8[address]00- [address]641 Apr, [facility] [id number] [place] [address] 17095 -0944 Mar, Acute exacerbation of chronic obstructive pulmonary disease (COPD) J44.1 ; BMI 50.0-59.9, adult Z68.43 and BMI 60.0-69.9, adult Z68.44 [place] [address] 90349- 5202 Mar, [place] [id number] [place] [address] 38397- 4337 Feb, Right anterior shoulder pain M25.511 ; Encounter for immunization Z23 ; Other emphysema J43.8 ; Other obesity due to excess calories E66.09 ; Body mass index (BMI) of 50-59.9 in adult Z68.43 and Low back pain M54.5 [facility] [address] 37174- 7553 Feb, [facility] [address] 12673- 9037 Feb, Low back pain M54.5 [facility] [address] 68840- 5377 Jan, [facility] [address] 84510- 6423 Jan, Low back pain M54.5 [facility] [address] 30596- 4214 Dec, Shortness of breath R06.02 [facility] [address] 44777- 0252 Dec, Low back pain M54.5 [facility] [id number] [place] [address] 16321- 1685 Nov, Low back pain M54.5 [facility] [address] 64816- 1194 Oct, [facility] [id number] [place] [address] 25904- 7445 Oct, Low back pain M54.5 [facility] [address] 85724- 1173 September, Low back pain M54.5 [facility] [id number] [place] [address] 05392 -6791 September, Sore throat J02.9 and Strep throat J02.0 [facility] [id number] [place] [address] 68879- 2431 September, [facility] [address] 46265- 7991 Aug, Low back pain M54.5 [facility] [id number] [place] [address] 84273- 0246 Aug, Medicare welcome exam Z00.00 ; Prostate cancer screening Z12.5 ; Encounter for screening for lung cancer Z12.2 and Lipid screening Z13.220 [facility] [id number] [place] [address] 37152- 7549 Jul, [facility] [id number] [place] [address] 37006- 8890 Jul, Low back pain M54.5 [facility] [address] 05698- 8415 Jul, [facility] [id number] [place] [address] 16353- 9621 Jun, [facility] [id number] [place] [address] 40810- 8721 Jun, Anxiety F41.9 and Low back pain M54.5 [facility] [id number] [place] [address] 31198- 5867 Jun, Shortness of breath R06.02 [facility] [id number] [place] [address] 84584- 3601 May, Anxiety F41.9 and Low back pain M54.5 [facility] [address] 94738- 1607 May, [facility] [id number] [place] [address] 95370- 6988 Apr, [facility] [address] 14515- 7573 Apr, Chronic obstructive pulmonary disease, unspecified J44.9 [facility] [id number] [place] [address] 36547- 3139 Apr, [facility] [id number] [place] [address] 78709- 9073 Apr, Chronic obstructive pulmonary disease, unspecified J44.9 [facility] [id number] [place] [address] 36209- 0881 Apr, [facility] [id number] [place] [address] 47671- 7618 Apr, Anxiety F41.9 and Low back pain M54.5 [facility] [address] 44258- 4251 Mar, Encounter for immunization Z23 ; Obstructive sleep apnea syndrome G47.33 ; Low back pain M54.5 and Anxiety F41.9 [facility] [id number] [place] [address] 51111- 2655 Mar, Chronic obstructive pulmonary disease, unspecified J44.9 [facility] [id number] [place] [address] 77037- 2091 Mar, Chronic obstructive pulmonary disease, unspecified J44.9 [facility] [id number] [place] [address] 31162- 6524 Mar, Chronic obstructive pulmonary disease, unspecified J44.9 [facility] [id number] [place] [address] 18588- 1472 Feb, [facility] [id number] [place] [address] 31650- 0397 Feb, [facility] [id number] [place] [address] 37472- 2898 Feb, Chronic obstructive pulmonary disease, unspecified J44.9 [facility] [id number] [place] [address] 61770- 2828 Feb, [facility] [id number] [place] [address] 66183- 0076 Feb, Low back pain M54.5 ; Anxiety F41.9 and Bronchitis J40 [facility] [id number] [place] [address] 06682- 2894 27 Jan, 2016 [facility] [id number] [place] [address] 22978- 8237 15 Jan, 2016 Anxiety F41.9 [facility] [id number] [place] [address] 52581- 9234 12 Jan, 2016 Chronic obstructive pulmonary disease, unspecified J44.9 [facility] [id number] [place] [address] 38785- 4478 06 Jan, 2016 Low back pain M54.5 [facility] [id number] [place] [address] 15085- 4670 Dec, Vertigo R42 [facility] [id number] [place] [address] 80513- 0635 Dec, [facility] [id number] [place] [address] 17631- 9586 Nov, [facility] [id number] [place] [address] 59998- 9516 Nov, Low back pain M54.5 and Anxiety F41.9 [facility] [id number] [place] [address] 78507- 0026 Nov, [facility] [id number] [place] [address] 47302- 8303 Nov, [facility] [id number] [place] [address] 86385- 6060 Oct, Low back pain M54.5 and Anxiety F41.9 [facility] [id number] [place] [address] 88799- 1168 September, [facility] [id number] [place] [address] 74234- 7256 Aug, Shortness of breath R06.02 [facility] [address] [address]- 7147 Aug, Shortness of breath R06.02 [facility] [id number] [address]- 7586 Aug, [facility] [id number] [place] [address] 15475- 6544 Jul, Insomnia G47.00 and Shortness of breath R06.02 [facility] [address] [place] [address], [place] [address]- 9921 Jul, [facility] [id number] [place] [address] 68010- 5627 Jul, [facility] [id number] [place] [address] 17679- 5956 Jul, Bronchitis J40 [facility] [id number] [place] [address] 98472- 0205 Jul, [facility] [id number] [place] [address] 37578- 8314 Jun, [facility] [id number] [place] [address] 05845- 7883 Jun, [facility] [address] [address]- 7697 May, [facility] [address] [address]- 3485 May, [facility] [id number] [place] [address] 35240- 8603 Apr, [facility] [id number] [place] [address] 28339- 1327 Apr, [facility] [address] [address]- 6040 Mar, [facility] [address] [address]- 9891 Mar, [facility] [address] [address]- 3438 Mar, [facility] [address] [address]- 2556 Feb, [facility] [address] [address]- 5514 Feb, [facility] [address] [address]- 1397 Feb, Chronic obstructive pulmonary disease, unspecified J44.9 [facility] [address] [address]- 0536 Jan, [facility] [address] [address]- 3308 Jan, [facility] [address] [address]- 2704 Dec, [facility] [address] [address]- 8860 Dec, [facility] [address] [address]- 4843 Dec, High risk medication use V58.69 ; Back pain 724.5 ; Insomnia 780.52 ; Screening, lipid V77.91 and Screening for prostate cancer V76.44 [facility] [address] [address]- 1013 Nov, [facility] [address] [address]- 0267 Nov, [facility] [address] [address]- 1960 Nov, [facility] [address] [address]- 8002 Oct, [facility] [address] [address]- 9198 Oct, [facility] [address] [id number] [place] [address]- 9595 September, [facility] [place] [facility] [address] [id number] [place] [address]- 4468 Aug, [facility] [place] [facility] [address] [id number] [place] [address]- 2161 Aug, [facility] [place] [facility] [address] [id number] [place] [address]- 4592 Jul, [facility] [place] [facility] [address] [id number] [place] [address]- 0903 Jul, [facility] [place] [facility] [address] [id number] [place] [address]- 7906 Jul, [facility] [place] [facility] [address] [id number] [place] [address]- 7369 Jul, [facility] [place] [facility] [address] [id number] [place] [address]- 0343 Jul, [facility] [place] [facility] [address] [id number] [place] [address]- 2935 Jul, [facility] [place] [facility] [address] [id number] [place] [address]- 5487 Jun, [facility] [place] [facility] [address] [id number] [place] [address]- 3216 Jun, [facility] [place] [facility] [address] [id number] [place] [address]- 3797 Jun, [facility] [place] [facility] [address] [id number] [place] [address]- 1336 Jun, [facility] [place] [facility] [address] [id number] [place] [address]- 3206 May, [facility] [place] [facility] [address] [id number] [place] [address]- 3152 May, [facility] [place] [facility] [address] [id number] [place] [address]- 7762 May, [facility] [place] [facility] [address] [id number] [place] [address]- 9437 May, [facility] [place] [facility] [address] [id number] [place] [address]- 7887 May, [facility] [place] [facility] [address] [id number] [place] [address]- 5089 May, [facility] [place] [facility] [address] [id number] [place] [address]- 5250 Apr, [facility] [place] [facility] [address] [id number] [place] [address]- 6679 Apr, [facility] [place] [facility] [address] [id number] [place] [address]- 7131 Mar, [facility] [place] [facility] [address] [id number] [place] [address]- 7416 Mar, [facility] [place] [facility] [address] [id number] [place] [address]- 5627 Mar, [facility] [place] [facility] [address] [id number] [address]- 1529 Mar, [facility] [place] [facility] [address] [id number] [address]- 7924 Feb, [facility] [place] [facility] [address] [id number] [address]- 0790 Feb, [facility] [place] [facility] [address] [id number] [place] [address]- 0097 Feb, [facility] [place] [facility] [address] [id number] [address]- 5671 Feb, [facility] [place] [facility] [address] [id number] [place] [address]- 1101 Jan, [facility] [place] [facility] [address] [id number] [place] [address]- 8936 Jan, 2013 [facility] [place] [facility] [address] [id number] [place] [address]- 0805 Jan, 2013 [facility] [place] [facility] [address] [id number] [place] [address]- 9656 Jan, 2013 [facility] [place] [facility] [address] [id number] [place] [address]- 6178 Jan, 2013 [facility] [place] [facility] [address] [id number] [place] [address]- 9443 Jan, 2013 [facility] [place] [facility] [address] [id number] [place] [address]- 2526 Jan, 2013 [facility] [place] [facility] [address] [id number] [place] [address]- 2274 Jan, 2013 [facility] [place] [facility] [address] [id number] [place] [address]- 7458 Jan, 2013 [facility] [place] [facility] [address] [id number] [place] [address]- 9784 Jan, 2013 [facility] [place] [facility] [address] [id number] [place] [address]- 0612 Dec, [facility] [place] [facility] [address] [id number] [place] [address]- 2962 Dec, [facility] [place] [facility] [address] [id number] [place] [address]- 3474 Nov, [facility] [place] [facility] [address] [id number] [place] [address]- 7357 Nov, [facility] [place] [facility] [address] [id number] [place] [address]- 5637 Nov, [facility] [place] [facility] [address] [id number] [place] [address]- 8681 Nov, [facility] [place] [facility] [address] [id number] [place] [address]- 5913 Nov, [facility] [place] [facility] [address] [id number] [place] [address]- 0762 Nov, 2013 [facility] [place] [facility] [address] [id number] [place] [address]- 1740 Nov, 2013 [facility] [place] [facility] [address] [id number] [place] [address]- 7629 Nov, 2013 [facility] [place] [facility] [address] [id number] [place] [address]- 2432 Nov, 2013 [facility] [place] [facility] [address] [id number] [place] [address]- 2605 Nov, 2013 [facility] [place] [facility] [address] [id number] [place] [address]- 7303 Nov, 2013 [facility] [place] [facility] [address] [id number] [place] [address]- 3883 Nov, 2013 [facility] [place] [facility] [address] [id number] [place] [address]- 7485 Oct, [facility] [place] [facility] [address] [id number] [place] [address]- 0108 Oct, [facility] [place] [facility] [address] [id number] [place] [address]- 5401 Oct, [facility] [place] [facility] [address] [id number] [place] [address]- 8662 Oct, [facility] [place] [facility] [address] [id number] [place] [address]- 4380 Oct, [facility] [place] [facility] [address] [id number] [place] [address]- 3275 Oct, [facility] [place] [facility] [address] [id number] [place] [address]- 3895 Oct, [facility] [place] [facility] [address] [id number] [place] [address]- 7266 Oct, [facility] [place] [facility] [address] [id number] [place] [address]- 4592 September, [facility] [place] [facility] [address] [id number] [place] [address]- 8191 September, [facility] [place] [facility] [address] [id number] [place] [address]- 6510 September, [facility] [place] [facility] [address] [id number] [place] [address]- 1466 September, [facility] [place] [facility] [address] [id number] [place] [address]- 8818 September, [facility] [place] [facility] [address] [id number] [place] [address]- 7532 September, [facility] [place] [facility] [address] [id number] [place] [address]- 4379 September, [facility] [place] [facility] [address] [id number] [place] [address]- 6307 September, [facility] [place] [facility] [address] [id number] [place] [address]- 3530 September, [facility] [place] [facility] [address] [id number] [place] [address]- 2136 September, [facility] [place] [facility] [address] [id number] [place] [address]- 4816 Aug, [facility] [place] [facility] [address] [id number] [place] [address]- 3099 Aug, [facility] [place] [facility] [address] [id number] [place] [address]- 8182 Aug, [facility] [place] [facility] [address] [id number] [place] [address]- 6470 Aug, [facility] [place] [facility] [address] [id number] [place] [address]- 6632 Aug, [facility] [place] [facility] [address] [id number] [place] [address]- 5790 Aug, [facility] [place] [facility] [address] [id number] [place] [address]- 8876 16 Aug, 2013 [facility] [address] [id number] [place] [address]- 9997 16 Aug, 2013 [facility] [place] [facility] [address] [id number] [place] [address]806 14 Aug, 2013 [facility] [address] [id number] [place] [address]- 1486 Aug, [facility] [place] [facility] [address] [id number] [place] [address]- 0551 Aug, [facility] [address] [id number] [place] [address]- 0966 Aug, [facility] [place] [facility] [address] [id number] [place] [address]- 8967 Aug, [facility] [place] [facility] [address] [id number] [place] [address]- 0475 Aug, [facility] [address] [id number] [place] [address] 24 Jul, 2013 [facility] [place] [facility] [address] [id number] [place] [address] 24 Jul, 2013 [facility] [address] [id number] [place] [address] Jul, [facility] [place] [facility] [address] [id number] [place] [address] Jul, [facility] [place] [facility] [address] [id number] [place] [address] Jun, [facility] [place] [facility] [address] [id number] [place] [address] Jun, [facility] [place] [facility] [address] [id number] [place] [address] 14 Jun, 2013 [facility] [place] [facility] [address] [id number] [place] [address] Jun, [facility] [place] [facility] [address] [id number] [place] [address] Jun, [facility] [place] [facility] [address] [id number] [place] [address] Jun, [facility] [place] [facility] [address] [id number] [place] [address] Jun, [facility] [place] [facility] [address] [id number] [place] [address] May, [facility] [place] [facility] [address] [id number] [place] [address] May, [facility] [place] [facility] [address] [id number] [place] [address] May, [facility] [place] [facility] [address] [id number] [place] [address] May, [facility] [place] [facility] [address] [id number] [place] [address] May, [facility] [place] [facility] [address] [id number] [place] [address] May, [facility] [place] [facility] [address] [id number] [place] [address] Apr, [facility] [place] [facility] [address] [id number] [place] [address] Apr, [facility] [place] [facility] [address] [id number] [address] Mar, [facility] [place] [facility] [address] [id number] [place] [address] Mar, [facility] [place] [facility] [address] [id number] [place] [address] Mar, [facility] [place] [facility] [address] [id number] [place] [address] Mar, [facility] [place] [facility] [address] [id number] [place] [address] Mar, [facility] [address] [id number] [place] [address] Mar, [facility] [address] [id number] [place] [address] Feb, [facility] [address] [id number] [place] [address] Feb, [facility] [address] [id number] [place] [address] Feb, [facility] [address] [id number] [place] [address] Feb, [facility] [address] [id number] [place] [address] Feb, [facility] [address] [id number] [place] [address] Jan, [facility] [address] [id number] [place] [address] Dec, [facility] [address] [id number] [place] [address] Dec, [facility] [address] [id number] [place] [address] Oct, [facility] [place] [facility] [address] [id number] [place] [address] Oct, [facility] [address] [id number] [place] [address] Oct, [facility] [place] [facility] [address] [id number] [place] [address] September, [facility] [place] [facility] [address] [id number] [place] [address] September, [facility] [address] [id number] [place] [address] Aug, [facility] [place] [facility] [address] [id number] [place] [address] Aug, [facility] [place] [facility] [address] [id number] [place] [address] Jul, [facility] [place] [facility] [address] [id number] [place] [address] May, [facility] [place] [facility] [address] [id number] [place] [address] May, [facility] [address] [id number] [place] [address] Apr, [facility] [place] [facility] [address] [id number] [place] [address] Apr, [facility] [address] [id number] [place] [address] Apr, [facility] [address] [id number] [place] [address] Apr, [facility] [place] [facility] [address] [id number] [place] [address] Apr, [facility] [place] [facility] [address] [id number] [place] [address] Apr, [facility] [place] [facility] [address] [id number] [place] [address] Apr, [facility] [place] [facility] [address] [id number] [place] [address] Apr, [facility] [place] [facility] [address] [id number] [place] [address] Mar, [facility] [place] [facility] [address] [id number] [place] [address] Mar, [facility] [place] [facility] [address] [id number] [place] [address] 29 Feb, 2012 [facility] [place] [facility] [address] [id number] [place] [address] Feb, [facility] [place] [facility] [address] [id number] [place] [address] Feb, [facility] [place] [facility] [address] [id number] [place] [address] Jan, [facility] [place] [facility] [address] [id number] [place] [address] Jan, [facility] [place] [facility] [address] [id number] [place] [address] Dec, [facility] [place] [facility] [address] [id number] [place] [address] Dec, [facility] [place] [facility] [address] [id number] [place] [address] Dec, [facility] [place] [facility] [address] [facility] [id number] [place] [address] Dec, [facility] [place] [facility] [address] [id number] [place] [address] Nov, [facility] [place] [facility] [address] [id number] [place] [address] Nov, [facility] [place] [facility] [address] [facility] [id number] [place] [address] Nov, [facility] [place] [facility] [address] [id number] [place] [address] September, [facility] [place] [facility] [address] [id number] [place] [address] September, [facility] [place] [facility] [address] [id number] [place] [address] September, [facility] [place] [facility] [address] [facility] [id number] [place] [address] Aug, [facility] [place] [facility] [address] [facility] [id number] [place] [address] Jun, [facility] [place] [facility] [id number] [address] May, [facility] [id number] [address] 14 Apr, 2011 [facility] [id number] [address] Apr, [facility] [id number] [address] Apr, [facility] [id number] [address] Mar, [facility] [id number] [address] Mar, [facility] [id number] [address] Feb, [facility] [id number] [address] Feb, [facility] [id number] [address] Feb, [facility] [id number] [address] Feb, [facility] [id number] [address] Nov, [facility] [id number] [address] [address] Oct, IMMUNIZATIONS No Known Immunizations SOCIAL HISTORY Never Assessed REASON FOR VISIT chm- pt states he is getting over sepsis. Kareen, Wants to talk about gastric sleeve PLAN OF CARE Activity Details Follow Up 3 Months Reason:weight mgmt VITAL SIGNS Height 70 in 2017-09-18 Weight 353.6 lbs 2017-09-18 Temperature 97.7 degrees Fahrenheit 2017-09-18 Heart Rate 88 bpm 2017-09-18 Respiratory Rate 20 2017-09-18 BMI 50.73 kg/m2 2017-09-18 Blood pressure systolic 144 mmHg 2017-09-18 Blood pressure diastolic 82 mmHg 2017-09-18 MEDICATIONS Medication Instructions Dosage Frequency Start Date End Date Duration Status ProAir HFA 108 (90 Base) MCG/ACT Inhalation every 4 hrs 2 puffs as needed for short of breath or wheeze 4h 90 Active Advair Diskus 250-50 MCG/DOSE Inhalation Twice a day 1 puff 12h 25 Aug, 2015 90 days Active Albuterol Sulfate (2.5 MG/3ML) 0.083% Inhalation every 4 hrs 1 vial in nebuizer as needed for cough or wheeze 4h Active Zolpidem Tartrate 10 mg Orally Once a day prn 1 tablet at bedtime as needed Aug, Active Norvasc 5 MG Orally Once a day 1 tablet 24h Not-Taking Hydrocodone-Acetaminophen 10-325 MG Orally 3 times a day 1 tablet as needed 8h Aug, Active Brovana 15 MCG/2ML Inhalation Twice a day 1 vial in nebulizer 12h Active Albuterol Sulfate HFA 108 (90 Base) MCG/ACT Inhalation every 6 hrs 2 puffs as needed 6h Aug, 90 days Active Lisinopril 20 MG Orally Once a day 1 tablet 24h Active Budesonide 0.5 MG/2ML Inhalation Twice a day 1 vial in nebulizer 12h Active PredniSONE 10 mg Orally Once a day 4 tablets daily X 4 days, 3 tablets daily X 3 days, 2 tablets daily X 2 days, 1 tablet for 1 day 24h Not-Taking Acidophilus - Orally 2 times a day 1 12h 16 Aug, 2017 Mar, 30 days Active RESULTS No Results PROCEDURES Procedure Date Ordered Result Body Site [facility] VISIT ESTABLISHED PATIENT September 18, 2017 INSTRUCTIONS MEDICATIONS ADMINISTERED No Known Medications [...] removal 05/2015 Surgical History Right Shoulder 2017 Hospitalization History Hospitalization for surgery only Hospitalization History sepsis at [facility] 08/2017
--- OUTSIDE RECORDS SUMMARY | 2018-04-04 14:23 | XMS REPORT ---
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 Name Role Phone JENNIFER FERRELL Unavailable PROBLEMS Type Condition ICD9-CM Code SYQ65-QW Code Onset Dates Condition Status SNOMED Code Problem Chronic obstructive pulmonary disease, unspecified J44.9 Active 51624225 Problem Body mass index (BMI) of 50-59.9 in adult Z68.43 Active 284389152 Problem Obstructive sleep apnea syndrome G47.33 Active 81010246 Problem Thrombocytopenia D69.6 Active 129405044 Problem Chronic obstructive pulmonary disease, unspecified COPD type J44.9 Active 78791602 Problem Other obesity due to excess calories E66.09 Active [id number] Problem Other emphysema J43.8 Active 22789646 Problem Acute exacerbation of chronic obstructive pulmonary disease (COPD) J44.1 Active 777177024 Problem Chronic obstructive pulmonary disease with (acute) exacerbation J44.1 Active 755892958 Problem Gastroesophageal reflux disease without esophagitis K21.9 Active 102022881 Problem Mild intermittent asthma without complication J45.20 Active 165339026 Problem Shortness of breath R06.02 Active 309556138 Problem Insomnia G47.00 Active 225019522 Problem Primary insomnia F51.01 Active 0880459 Problem Anxiety F41.9 Active 32323172 Problem Dysthymia F34.1 Active 88256558 Problem Low back pain M54.5 Active 666047089 ALLERGIES No Known Allergies ENCOUNTERS Encounter Location Date Diagnosis [facility] [address] [facility] [id number] [address] Dec, [facility] [address] [id number] [address] Nov, Acute exacerbation of chronic obstructive pulmonary disease (COPD) J44.1 ; Primary insomnia F51.01 and Low back pain M54.5 [facility] [address] [place] [address] 52944- 8468 September, BMI 50.0-59.9, adult Z68.43 and Chronic obstructive pulmonary disease, unspecified COPD type J44.9 [facility] [id number] [place] [address] 66188- 7148 23 Aug, 2017 Chronic obstructive pulmonary disease, unspecified J44.9 ; Primary insomnia F51.01 ; Low back pain M54.5 and BMI 50.0-59.9, adult Z68.43 [facility] [id number] [place] [address] 22413- 9234 16 Aug, 2017 Shortness of breath R06.02 ; Loose stools R19.5 and BMI 50.0 -59.9, adult Z68.43 [address] [facility] [id number] [place] [address] 89974- 7482 Aug, Acute renal injury N17.9 and Thrombocytopenia D69.6 [facility] [id number] [place] [address] 72797- 1537 May, [facility] [id number] [place] [address] 16101- 2712 Apr, [facility] [address] [place] [address] 63439 -9393 Mar, Acute exacerbation of chronic obstructive pulmonary disease (COPD) J44.1 ; BMI 50.0-59.9, adult Z68.43 and BMI 60.0-69.9, adult Z68.44 [facility] [id number] [place] [address] 93773- 4903 Mar, [place] [address] 48440- 4572 18 Feb, 2017 Right anterior shoulder pain M25.511 ; Encounter for immunization Z23 ; Other emphysema J43.8 ; Other obesity due to excess calories E66.09 ; Body mass index (BMI) of 50-59.9 in adult Z68.43 and Low back pain M54.5 [facility] [id number] [place] [address] 97496- 4866 Feb, [facility] [id number] [place] [address] 64678- 4181 Feb, Low back pain M54.5 [facility] [id number] [place] [address] 24664- 8763 Jan, [facility] [address] 67949- 2572 Jan, Low back pain M54.5 [facility] [id number] [place] [address] 79083- 3275 Dec, Shortness of breath R06.02 [facility] [id number] [place] [address] 80961- 8799 Dec, Low back pain M54.5 [facility] [id number] [place] [address] 03694- 1861 Nov, Low back pain M54.5 [facility] [id number] [place] [address] 63063- 8288 Oct, [facility] [id number] [place] [address] 37603- 2072 Oct, Low back pain M54.5 [facility] [id number] [place] [address] 39828- 7378 September, Low back pain M54.5 [facility] [address] [place] [address] 57515 -2599 September, Sore throat J02.9 and Strep throat J02.0 [facility] [id number] [place] [address] 82534- 8282 September, [facility] [id number] [place] [address] 43250- 1010 Aug, Low back pain M54.5 [facility] [address] [address] Aug, Medicare welcome exam Z00.00 ; Prostate cancer screening Z12.5 ; Encounter for screening for lung cancer Z12.2 and Lipid screening Z13.220 [facility] [address]005[address] [address] Jul, [facility] [id number] [place] [address] 77043- 6084 Jul, Low back pain M54.5 [facility] [id number] [place] [address] 47069- 4812 Jul, [facility] [id number] [place] [address] 18624- 0070 Jun, [facility] [id number] [place] [address] 57538- 3808 Jun, Anxiety F41.9 and Low back pain M54.5 [facility] [id number] [place] [address] 70885- 1556 Jun, Shortness of breath R06.02 [facility] [id number] [place] [address] 27679- 4845 May, Anxiety F41.9 and Low back pain M54.5 [facility] [id number] [place] [address] 62951- 5271 May, [facility] [address] [place] [address] 76929- 3525 Apr, [facility] [id number] [place] [address] 36728- 7972 Apr, Chronic obstructive pulmonary disease, unspecified J44.9 [facility] [address] [address] 49[address] Apr, [facility] [address] [place] [address] 69094- 2119 Apr, Chronic obstructive pulmonary disease, unspecified J44.9 [facility] [id number] [place] [address] 39355- 6150 Apr, [facility] [id number] [place] [address] 80405- 6324 Apr, Anxiety F41.9 and Low back pain M54.5 [facility] [address] 17891- 1809 Mar, Encounter for immunization Z23 ; Obstructive sleep apnea syndrome G47.33 ; Low back pain M54.5 and Anxiety F41.9 [facility] [address] 11031- 8709 Mar, Chronic obstructive pulmonary disease, unspecified J44.9 [facility] [id number] [place] [address] 96031- 8129 Mar, Chronic obstructive pulmonary disease, unspecified J44.9 [facility] [id number] [place] [address] 06345- 0263 Mar, Chronic obstructive pulmonary disease, unspecified J44.9 [facility] [id number] [place] [address] 49687- 6415 Feb, [facility] [id number] [place] [address] 79108- 6460 Feb, [facility] [id number] [place] [address] 54516- 1450 Feb, Chronic obstructive pulmonary disease, unspecified J44.9 [facility] [id number] [place] [address] 29606- 6777 Feb, [facility] [address] 94242- 7354 Feb, Low back pain M54.5 ; Anxiety F41.9 and Bronchitis J40 [facility] [id number] [place] [address] 21235- 2414 Jan, [facility] [address] [id number] [address]- 9702 15 Jan, 2016 Anxiety F41.9 [facility] [id number] [place] [address] 20036- 5212 12 Jan, 2016 Chronic obstructive pulmonary disease, unspecified J44.9 [facility] [id number] [place] [address] 77394- 6303 06 Jan, 2016 Low back pain M54.5 [facility] [id number] [place] [address] 11484- 6282 Dec, Vertigo R42 [facility] [id number] [place] [address] 37217- 9385 Dec, [facility] [id number] [place] [address] 61501- 8316 Nov, [facility] [id number] [place] [address] 59317- 3395 Nov, Low back pain M54.5 and Anxiety F41.9 [facility] [id number] [place] [address] 82580- 9310 Nov, [facility] [id number] [place] [address] 66932- 3045 Nov, [facility] [address] [place] [address] 26972- 7000 Oct, Low back pain M54.5 and Anxiety F41.9 [facility] [address] [place] [address] 81579- 2329 September, [facility] [id number] [place] [address] 63699- 3657 Aug, Shortness of breath R06.02 [facility] [address] [place] [address] 04210- 0296 Aug, Shortness of breath R06.02 [facility] [id number] [place] [address] 44334- 2455 Aug, [facility] [address] [place] [address]- 5846 Jul, Insomnia G47.00 and Shortness of breath R06.02 [facility] [address] [facility] [id number] [place] [address]- 2097 Jul, [facility] [id number] [place] [address], [place] [address]- 7327 Jul, [facility] [id number] [place] [address]- 8026 Jul, Bronchitis J40 [facility] [id number] [place] [address], [place] [address]- 2697 Jul, [facility] [id number] [place] [address]- 7592 Jun, [facility] [id number] [place] [address], [place] [address]- 1831 Jun, [facility] [address] [place] [address]- 0485 May, [facility] [address] [place] [address]- 2029 May, [facility] [address] [place] [address]- 8941 Apr, [facility] [address] [address]- 6592 Apr, [facility] [id number] [place] [address]- 1393 Mar, [facility] [id number] [place] [address]- 3066 Mar, [facility] [id number] [place] [address]- 2436 Mar, [facility] [address] [address]- 5550 Feb, [facility] [address] [address]- 9620 Feb, [facility] [address] 1360 Feb, Chronic obstructive pulmonary disease, unspecified J44.9 [facility] [address] [address]- 4228 Jan, [facility] [address] [id number] [address]- 3858 Jan, [facility] [address] [place] [address] 504069- 6774 Dec, [facility] [address] [id number] [address]- 6215 Dec, [facility] [address] [place] [address] 52302- 7010 Dec, High risk medication use V58.69 ; Back pain 724.5 ; Insomnia 780.52 ; Screening, lipid V77.91 and Screening for prostate cancer V76.44 [facility] [address] 5195 Nov, [facility] [address] [address]- 2282 Nov, [facility] [address] [address]- 0518 Nov, [facility] [address] [address]- 1288 Oct, [facility] [address] 4554 Oct, [facility] [address] 8957 September, [facility] [address] [address]- 7048 Aug, 2014 [facility] [place] [facility] [address] [id number] [place] [address]- 7714 Aug, [facility] [place] [facility] [address] [id number] [place] [address]- 5131 Jul, [facility] [place] [facility] [address] [id number] [place] [address]- 5499 Jul, [facility] [place] [facility] [address] [id number] [place] [address]- 4656 Jul, [facility] [place] [facility] [address] [id number] [place] [address]- 3298 Jul, [facility] [place] [facility] [address] [id number] [place] [address]- 9590 Jul, [facility] [place] [facility] [address] [id number] [place] [address]- 2877 Jul, [facility] [place] [facility] [address] [id number] [place] [address]- 2368 Jun, [facility] [place] [facility] [address] [id number] [place] [address]- 3915 Jun, [facility] [place] [facility] [address] [id number] [place] [address]- 6332 Jun, [facility] [place] [facility] [address] [id number] [place] [address]- 2868 Jun, [facility] [place] [facility] [address] [id number], [place] [address]- 3442 May, [facility] [place] [facility] [address] [id number] [place] [address]- 2554 May, [facility] [place] [facility] [address] [id number] [place] [address]- 6554 May, [facility] [place] [facility] [address] [id number] [place] [address]- 0496 May, [facility] [place] [facility] [address] [id number] [place] [address]- 6722 May, [facility] [place] [facility] [address] [id number] [place] [address]- 0267 May, [facility] [place] [facility] [address] [id number] [place] [address]- 2774 Apr, [facility] [place] [facility] [address] [id number] [place] [address]- 6842 Apr, [facility] [place] [facility] [address] [id number] [place] [address]- 5421 Mar, [facility] [place] [facility] [address] [id number] [place] [address]- 8703 Mar, [facility] [place] [facility] [address] [id number] [place] [address]- 1419 Mar, [facility] [place] [facility] [address] [id number] [place] [address]- 7760 Mar, [facility] [place] [facility] [address] [id number] [place] [address]- 7312 Feb, [facility] [place] [facility] [address] [id number] [place] [address]- 9803 16 Feb, 2014 [facility] [place] [facility] [address] [id number] [place] [address]- 8892 Feb, [facility] [place] [facility] [address] [id number] [place] [address]- 2119 Feb, [facility] [place] [facility] [address] [id number] [place] [address]- 5538 23 Jan, 2014 [facility] [place] [facility] [address] [id number] [place] [address]- 4525 23 Jan, 2014 [facility] [place] [facility] [address] [id number] [place] [address]- 0631 17 Jan, 2014 [facility] [place] [facility] [address] [id number] [place] [address]- 9336 17 Jan, 2014 [facility] [place] [facility] [address] [id number] [place] [address]- 0111 Jan, 2013 [facility] [place] [facility] [address] [id number] [place] [address]- 6265 Jan, 2013 [facility] [place] [facility] [address] [id number] [place] [address]- 7452 Jan, 2013 [facility] [place] [facility] [address] [id number] [place] [address]- 7266 Jan, 2013 [facility] [place] [facility] [address] [id number] [place] [address]- 4684 Jan, 2013 [facility] [place] [facility] [address] [id number] [place] [address]- 0037 Jan, 2013 [facility] [place] [facility] [address] [id number] [place] [address]- 9426 Dec, [facility] [place] [facility] [address] [id number] [place] [address]- 3811 Dec, [facility] [place] [facility] [address] [id number] [place] [address]- 1480 Nov, [facility] [place] [facility] [address] [id number] [place] [address]- 0198 Nov, [facility] [place] [facility] [address] [id number] [place] [address]- 7598 Nov, [facility] [place] [facility] [address] [id number] [place] [address]- 8141 Nov, [facility] [place] [facility] [address] [id number] [place] [address]- 3232 Nov, [facility] [place] [facility] [address] [id number] [place] [address]- 0128 Nov, [facility] [place] [facility] [address] [id number] [place] [address]- 5084 Nov, [facility] [place] [facility] [address] [id number] [place] [address]- 3349 Nov, [facility] [place] [facility] [address] [id number] [place] [address]- 6652 Nov, [facility] [place] [facility] [address] [id number] [place] [address]- 5460 Nov, [facility] [place] [facility] [address] [id number] [place] [address]- 5791 Nov, [facility] [place] [facility] [address] [id number] [place] [address]- 3083 Nov, [facility] [place] [facility] [address] [id number] [place] [address]- 0839 Oct, [facility] [place] [facility] [address] [id number] [place] [address]- 7981 Oct, [facility] [place] [facility] [address] [id number] [place] [address]- 5366 Oct, [facility] [place] [facility] [address] [id number] [place] [address]- 2959 Oct, [facility] [place] [facility] [address] [id number] [place] [address]- 7143 Oct, [facility] [place] [facility] [address] [id number] [place] [address]- 1964 Oct, [facility] [place] [facility] [address] [id number] [place] [address]- 6972 Oct, [facility] [place] [facility] [address] [id number] [place] [address]- 5187 Oct, [facility] [place] [facility] [address] [id number] [place] [address]- 2262 September, [facility] [place] [facility] [address] [id number] [place] [address]- 9422 September, [facility] [place] [facility] [address] [id number] [place] [address]- 7367 September, [facility] [place] [facility] [address] [id number] [place] [address]- 0196 September, [facility] [place] [facility] [address] [id number] [place] [address]- 9368 September, [facility] [place] [facility] [address] [id number] [place] [address]- 0854 September, [facility] [place] [facility] [address] [id number] [place] [address]- 9167 September, [facility] [place] [facility] [address] [id number] [place] [address]- 4271 September, [facility] [place] [facility] [address] [id number] [place] [address]- 7358 September, [facility] [place] [facility] [address] [id number] [place] [address]- 2279 September, [facility] [place] [facility] [address] [id number] [place] [address] Aug, [facility] [place] [facility] [address] [id number] [place] [address] Aug, [facility] [place] [facility] [address] [id number] [place] [address] 30 Aug, 2013 [facility] [place] [facility] [address] [id number] [place] [address] 30 Aug, 2013 [facility] [place] [facility] [address] [id number] [place] [address] Aug, [facility] [place] [facility] [address] [id number] [place] [address] 28 Aug, 2013 [facility] [place] [facility] [address] [id number] [place] [address] 16 Aug, 2013 [facility] [place] [facility] [address] [id number] [place] [address] 16 Aug, 2013 [facility] [place] [facility] [address] [id number] [place] [address] Aug, [facility] [place] [facility] [address] [id number] [place] [address] 14 Aug, 2013 [facility] [place] [facility] [address] [id number] [place] [address] Aug, [facility] [place] [facility] [address] [facility] [id number] [place] [address] Aug, [facility] [place] [facility] [address] [id number] [place] [address] Aug, [facility] [place] [facility] [address] [id number] [place] [address] Aug, [facility] [place] [facility] [address] [id number] [place] [address] Jul, [facility] [place] [facility] [address] [id number] [place] [address]- [address] Jul, [facility] [place] [facility] [address] [id number] [place] [address] Jul, [facility] [place] [facility] [address] [facility] [id number] [place] [address] Jul, [facility] [place] [facility] [address] [facility] [id number] [place] [address] Jun, [facility] [place] [facility] [address] [facility] [id number] [place] [address] Jun, [facility] [place] [facility] [address] [id number] [place] [address] 14 Jun, 2013 [facility] [place] [facility] [address] [id number] [place] [address]- [address] Jun, [facility] [place] [facility] [address] [id number] [place] [address]- [address] Jun, [facility] [place] [facility] [address] [facility] [id number] [place] [address]- [address] Jun, [facility] [place] [facility] [address] [id number] [place] [address] Jun, [facility] [place] [facility] [address] [id number] [place] [address] May, [facility] [place] [facility] [address] [id number] [place] [address] May, [facility] [place] [facility] [address] [id number] [place] [address]- [address] May, [facility] [place] [facility] [address] [id number] [place] [address]- [address] May, [facility] [place] [facility] [address] [id number] [place] [address]- [address] May, [facility] [place] [facility] [address] [id number] [place] [address] May, [facility] [place] [facility] [address] [id number] [place] [address] Apr, [facility] [place] [facility] [address] [id number] [place] [address] Apr, [facility] [place] [facility] [address] [id number] [place] [address] Mar, [facility] [place] [facility] [address] [id number] [place] [address] Mar, [facility] [place] [facility] [address] [id number] [place] [address] Mar, [facility] [place] [facility] [address] [id number] [place] [address] Mar, [facility] [place] [facility] [address] [id number] [place] [address] Mar, [facility] [place] [facility] [address] [id number] [place] [address] Mar, [facility] [place] [facility] [address] [id number] [place] [address] Feb, [facility] [place] [facility] [address] [id number] [place] [address] Feb, [facility] [place] [facility] [address] [id number] [place] [address]- [address] Feb, [facility] [place] [facility] [address] [id number] [place] [address]- [address] Feb, [facility] [place] [facility] [address] [id number] [place] [address] 9514 Feb, [facility] [place] [facility] [address] [id number] [place] [address]- [address] Jan, [facility] [place] [facility] [address] [id number] [place] [address]- [address] Dec, [facility] [place] [facility] [address] [id number] [place] [address] Dec, [facility] [place] [facility] [address] [id number] [place] [address] Oct, [facility] [place] [facility] [address] [id number] [place] [address] Oct, [facility] [place] [facility] [address] [id number] [address] Oct, [facility] [facility] [address] [id number] [address] September, [facility] [facility] [address] [id number] [address] September, [facility] [place] [facility] [address] [id number] [place] [address] Aug, [facility] [place] [facility] [address] [id number] [address] Aug, [facility] [place] [facility] [address] [id number] [place] [address] Jul, [facility] [place] [facility] [address] [id number] [place] [address] May, [facility] [address] [id number] [place] [address] May, [facility] [place] [facility] [address] [id number] [place] [address] Apr, [facility] [place] [facility] [address] [id number] [place] [address] Apr, [facility] [place] [facility] [address] [id number] [place] [address] Apr, [facility] [place] [facility] [address] [id number] [place] [address] Apr, [facility] [place] [facility] [address] [id number] [place] [address] Apr, [facility] [address] [id number] [place] [address] Apr, [facility] [place] [facility] [address] [id number] [place] [address] Apr, [facility] [place] [facility] [address] [id number] [place] [address] Apr, [facility] [place] [facility] [address] [id number] [place] [address] Mar, [facility] [place] [facility] [address] [id number] [place] [address] Mar, [facility] [place] [facility] [address] [id number] [place] [address] Feb, [facility] [place] [facility] [address] [id number] [place] [address] Feb, [facility] [facility] [address] [id number] [place] [address] Feb, [facility] [place] [facility] [address] [id number] [place] [address] Jan, [facility] [place] [facility] [address] [id number] [place] [address] Jan, [facility] [address] [id number] [place] [address] Dec, [facility] [address] [id number] [place] [address] Dec, [facility] [address] [id number] [place] [address] Dec, [facility] [address] [id number] [place] [address] Dec, [facility] [address] [id number] [place] [address] Nov, [facility] [address] [id number] [place] [address] Nov, [facility] [address] [id number] [place] [address] Nov, [facility] [address] [id number] [place] [address] September, [facility] [address] [id number] [place] [address] September, [facility] [address] [id number] [place] [address] September, [facility] [address] [id number] [place] [address] Aug, [facility] [address] [id number] [place] [address] Jun, [facility] [address] [id number] [place] [address] May, [facility] [address] [id number] [place] [address] Apr, [facility] [address] [id number][place] [address] Apr, [facility] [id number] [address] [address] Apr, [facility] [id number] Mar, [facility] [id number] [address] Mar, [facility] [id number] [address] [address] Feb, [facility] [id number] [address] Feb, [facility] [id number], [place] [address] Feb, [facility] [id number] Feb, [facility] [id number], [place] [address] Nov, [facility] [address] [id number] [address] Oct, IMMUNIZATIONS No Known Immunizations SOCIAL HISTORY Never Assessed REASON FOR VISIT [facility] f/u from sepsis August [id number] MA PLAN OF CARE VITAL SIGNS Height 70 in 2017-08-16 Weight 374.5 lbs 2017-08-16 Temperature 98.1 degrees Fahrenheit 2017-08-16 Heart Rate 84 bpm 2017-08-16 Respiratory Rate 24 2017-08-16 Oximetry on room air:93 % 2017-08-16 BMI 53.73 kg/m2 2017-08-16 Blood pressure systolic 128 mmHg 2017-08-16 Blood pressure diastolic 86 mmHg 2017-08-16 MEDICATIONS Medication Instructions Dosage Frequency Start Date [...] of breath or wheeze 4h 90 Active Levofloxacin 750 MG Orally Once a day 1 tablet 24h Active Advair Diskus 250-50 MCG/DOSE Inhalation Twice a day 1 puff 12h 25 Aug, 2015 90 days Active Budesonide 0.5 MG/2ML Inhalation Twice a day 1 vial in nebulizer 12h Active Transderm-Scop 1 MG/3DAYS Transdermal every 3 days apply 1 patch as directed Mar, Not-Taking Ambien 10 MG Orally Once a day 1 tablet at bedtime 24h 30 days Not- Taking Norvasc 5 MG Orally Once a day 1 tablet 24h Active RESULTS No Results PROCEDURES Procedure Date Ordered Result Body [facility] VENIPUNCT, ROUTINE* August 16, 2017 INSTRUCTIONS MEDICATIONS ADMINISTERED No Known Medications [...] for surgery only Hospitalization [facility]
--- OUTSIDE RECORDS SUMMARY | 2018-04-04 14:24 | XMS REPORT ---
Author Author JENNIFER FERRELL Organization [facility] Address [address] [place] [address] Care Team Providers Care Receiving Worker Name Role Phone JENNIFER FERRELL Unavailable PROBLEMS Type Condition ICD9-CM Code [id number] Code Onset Dates Condition Status SNOMED Code Problem Chronic obstructive pulmonary disease, unspecified J44.9 Active 82590415 Problem Body mass index (BMI) of 50-59.9 in adult Z68.43 Active 647724380 Problem Obstructive sleep apnea syndrome G47.33 Active 79909380 Problem Thrombocytopenia D69.6 Active 477999851 Problem Chronic obstructive pulmonary disease, unspecified COPD type J44.9 Active 27283817 Problem Other obesity due to excess calories E66.09 Active [id number] Problem Other emphysema J43.8 Active 72174917 Problem Acute exacerbation of chronic obstructive pulmonary disease (COPD) J44.1 Active 613062773 Problem Chronic obstructive pulmonary disease with (acute) exacerbation J44.1 Active 692537727 Problem Gastroesophageal reflux disease without esophagitis K21.9 Active 022157906 Problem Mild intermittent asthma without complication J45.20 Active 670265628 Problem Shortness of breath R06.02 Active 845706329 Problem Insomnia G47.00 Active 140837927 Problem Primary insomnia F51.01 Active 9015730 Problem Anxiety F41.9 Active 39042891 Problem Dysthymia F34.1 Active 66146000 Problem Low back pain M54.5 Active 984766249 ALLERGIES No Known Allergies ENCOUNTERS Encounter Location Date Diagnosis [facility] [address] [facility] [id number] [address] Dec, [facility] [address] [id number] [address] Nov, Acute exacerbation of chronic obstructive pulmonary disease (COPD) J44.1 ; Primary insomnia F51.01 and Low back pain M54.5 [facility] [id number] [place] [address] 71208- 5321 September, BMI 50.0-59.9, adult Z68.43 and Chronic obstructive pulmonary disease, unspecified COPD type J44.9 [facility] [id number] [place] [address] 97467- 4742 23 Aug, 2017 Chronic obstructive pulmonary disease, unspecified J44.9 ; Primary insomnia F51.01 ; Low back pain M54.5 and BMI 50.0-59.9, adult Z68.43 [facility] [id number] [place] [address] 95334- 7754 16 Aug, 2017 Shortness of breath R06.02 ; Loose stools R19.5 and BMI 50.0 -59.9, adult Z68.43 [place] [id number] [place] [address] 28907- 8690 Aug, Acute renal injury N17.9 and Thrombocytopenia D69.6 [place] [id number] [place] [address] 94356- 0410 May, [place] [id number] [place] [address] 32879- 3742 Apr, [facility] [id number] [place] [address] 39586 -2082 Mar, Acute exacerbation of chronic obstructive pulmonary disease (COPD) J44.1 ; BMI 50.0-59.9, adult Z68.43 and BMI 60.0-69.9, adult Z68.44 [facility] [id number] [place] [address] 05795- 4758 Mar, [place] [address] [address]1349- 4915 18 Feb, 2017 Right anterior shoulder pain M25.511 ; Encounter for immunization Z23 ; Other emphysema J43.8 ; Other obesity due to excess calories E66.09 ; Body mass index (BMI) of 50-59.9 in adult Z68.43 and Low back pain M54.5 [facility] [id number] [place] [address] 56806- 0807 Feb, [facility] [id number] [place] [address] 84774- 7662 Feb, Low back pain M54.5 [facility] [id number] [place] [address] 58245- 7595 Jan, [facility] [address] 35572- 4305 Jan, Low back pain M54.5 [facility] [id number] [place] [address] 43923- 1269 Dec, Shortness of breath R06.02 [facility] [id number] [place] [address] 37442- 9999 Dec, Low back pain M54.5 [facility] [id number] [place] [address] 83172- 1757 Nov, Low back pain M54.5 [facility] [id number] [place] [address] 53968- 8599 Oct, [facility] [id number] [place] [address] 70449- 0063 Oct, Low back pain M54.5 [facility] [id number] [place] [address] 32314- 1155 September, Low back pain M54.5 [facility] [id number] [place] [address] 82065 -4138 September, Sore throat J02.9 and Strep throat J02.0 [facility] [id number] [place] [address] 17471- 2002 September, [facility] [id number] [place] [address] 92277- 8614 Aug, Low back pain M54.5 [facility] [address] [address] 8924 Aug, Medicare welcome exam Z00.00 ; Prostate cancer screening Z12.5 ; Encounter for screening for lung cancer Z12.2 and Lipid screening Z13.220 [facility] [address] [address] 3543 Jul, [facility] [id number] [place] [address] 77875- 5053 Jul, Low back pain M54.5 [facility] [id number] [place] [address] 64916- 3500 Jul, [facility] [id number] [place] [address] 00798- 9570 Jun, [facility] [id number] [place] [address] 63491- 7338 Jun, Anxiety F41.9 and Low back pain M54.5 [facility] [id number] [place] [address] 04778- 4947 Jun, Shortness of breath R06.02 [facility] [id number] [place] [address] 02218- 2127 May, Anxiety F41.9 and Low back pain M54.5 [facility] [id number] [place] [address] 64421- 9848 May, [facility] [id number] [place] [address] 19283- 3696 Apr, [facility] [id number] [place] [address] 71247- 0234 Apr, Chronic obstructive pulmonary disease, unspecified J44.9 [facility] [address] [address]- 6552 Apr, [facility] [id number] [place] [address] 77611- 5875 Apr, Chronic obstructive pulmonary disease, unspecified J44.9 [facility] [id number] [place] [address] 52618- 4277 Apr, [facility] [id number] [place] [address] 87149- 7617 Apr, Anxiety F41.9 and Low back pain M54.5 [facility] [address] 33354- 2564 Mar, Encounter for immunization Z23 ; Obstructive sleep apnea syndrome G47.33 ; Low back pain M54.5 and Anxiety F41.9 [facility] [address] 58225- 0409 Mar, Chronic obstructive pulmonary disease, unspecified J44.9 [facility] [id number] [place] [address] 20624- 4053 Mar, Chronic obstructive pulmonary disease, unspecified J44.9 [facility] [id number] [place] [address] 44537- 7995 Mar, Chronic obstructive pulmonary disease, unspecified J44.9 [facility] [id number] [place] [address] 98562- 9513 Feb, [facility] [id number] [place] [address] 20206- 5269 Feb, [facility] [id number] [place] [address] 42399- 7026 Feb, Chronic obstructive pulmonary disease, unspecified J44.9 [facility] [id number] [place] [address] 90299- 4422 Feb, [facility] [address] 13740- 4425 Feb, Low back pain M54.5 ; Anxiety F41.9 and Bronchitis J40 [facility] [id number] [place] [address] 79607- 7580 Jan, [facility] [address] [id number] [address]- 9567 15 Jan, 2016 Anxiety F41.9 [facility] [id number] [place] [address] 19534- 5258 12 Jan, 2016 Chronic obstructive pulmonary disease, unspecified J44.9 [facility] [id number] [place] [address] 78566- 2993 06 Jan, 2016 Low back pain M54.5 [facility] [id number] [place] [address] 83563- 9415 Dec, Vertigo R42 [facility] [id number] [place] [address] 53517- 1930 Dec, [facility] [id number] [place] [address] 91489- 2892 Nov, [facility] [id number] [place] [address] 62208- 8707 Nov, Low back pain M54.5 and Anxiety F41.9 [facility] [id number] [place] [address] 96509- 5142 Nov, [facility] [id number] [place] [address] 56087- 2705 Nov, [facility] [id number] [place] [address] 20404- 8435 Oct, Low back pain M54.5 and Anxiety F41.9 [facility] [id number] [place] [address] 53512- 4598 September, [facility] [id number] [place] [address] 71905- 6751 Aug, Shortness of breath R06.02 [facility] [id number] [place] [address] 39503- 7802 Aug, Shortness of breath R06.02 [facility] [id number] [place] [address] 92967- 2648 Aug, [facility] [address] [place] [address]- 5071 Jul, Insomnia G47.00 and Shortness of breath R06.02 [facility] [address] [facility] [id number] [place] [address]- 7016 Jul, [facility] [id number] [place] [address], [place] [address]- 6875 Jul, [facility] [address] [id number] [place] [address]- 1511 Jul, Bronchitis J40 [facility] [id number] [place] [address], [place] [address]- 6234 Jul, [facility] [address] [id number] [place] [address]- 8003 Jun, [facility] [id number] [place] [address], [place] [address]- 8946 Jun, [facility] [address] [place] [address]- 6731 May, [facility] [address] [place] [address]- 5179 May, [facility] [address] [place] [address]- 0301 Apr, [facility] [address] [address]- 5734 Apr, [facility] [id number] [place] [address]- 1593 Mar, [facility] [address] [id number] [place] [address]- 8356 Mar, [facility] [id number] [place] [address]- 5126 Mar, [facility] [address], [place] [address]- 0990 Feb, [facility] [address], [place] [address]- 2566 Feb, [facility] [address] 6010 Feb, Chronic obstructive pulmonary disease, unspecified J44.9 [facility] [address], [place] [address]- 0297 Jan, [facility] [address] [id number] [address]- 3694 Jan, [facility] [id number] [place] [address] 133780- 0417 Dec, [facility] [address] [id number], [place] [address]- 3552 Dec, [facility] [id number] [place] [address] 78004- 8113 Dec, High risk medication use V58.69 ; Back pain 724.5 ; Insomnia 780.52 ; Screening, lipid V77.91 and Screening for prostate cancer V76.44 [facility] [address] 9998 Nov, [facility] [address], [place] [address]- 3414 Nov, [facility] [address], [place] [address]- 1419 Nov, [facility] [address], [place] [address]- 4979 Oct, [facility] [address]- 1496 Oct, [facility] [address] 6099 September, [facility] [address], [place] [address]- 3306 Aug, 2014 [facility] [place] [facility] [address] [id number] [place] [address]- 2425 Aug, [facility] [place] [facility] [address] [id number] [place] [address]- 7844 Jul, [facility] [place] [facility] [address] [id number] [place] [address]- 8890 Jul, [facility] [place] [facility] [address] [id number] [place] [address]- 5371 Jul, [facility] [place] [facility] [address] [id number] [place] [address]- 8478 Jul, [facility] [place] [facility] [address] [id number] [place] [address]- 6803 Jul, [facility] [place] [facility] [address] [id number] [place] [address]- 0662 Jul, [facility] [place] [facility] [address] [id number] [place] [address]- 9956 Jun, [facility] [place] [facility] [address] [id number] [place] [address]- 0109 Jun, [facility] [place] [facility] [address] [id number] [place] [address]- 4715 Jun, [facility] [place] [facility] [address] [id number] [place] [address]- 0122 Jun, [facility] [place] [facility] [address] [id number] [address]- 3170 May, [facility] [place] [facility] [address] [id number] [place] [address]- 5244 May, [facility] [place] [facility] [address] [id number] [place] [address]- 2616 May, [facility] [place] [facility] [address] [id number] [place] [address]- 4899 May, [facility] [place] [facility] [address] [id number] [place] [address]- 0567 May, [facility] [place] [facility] [address] [id number] [place] [address]- 2765 May, [facility] [place] [facility] [address] [id number] [place] [address]- 1027 Apr, [facility] [place] [facility] [address] [id number] [place] [address]- 7179 Apr, [facility] [place] [facility] [address] [id number] [place] [address]- 7695 Mar, [facility] [place] [facility] [address] [id number] [place] [address]- 1089 Mar, [facility] [place] [facility] [address] [id number] [place] [address]- 7228 Mar, [facility] [place] [facility] [address] [id number] [place] [address]- 9475 Mar, [facility] [place] [facility] [address] [id number] [place] [address]- 4703 Feb, [facility] [place] [facility] [address] [id number] [place] [address]- 7088 16 Feb, 2014 [facility] [place] [facility] [address] [id number] [place] [address]- 3840 Feb, [facility] [place] [facility] [address] [id number] [place] [address]- 1086 Feb, [facility] [place] [facility] [address] [id number] [place] [address]- 5940 23 Jan, 2014 [facility] [place] [facility] [address] [id number] [place] [address]- 2574 23 Jan, 2014 [facility] [place] [facility] [address] [id number] [place] [address]- 0682 17 Jan, 2014 [facility] [place] [facility] [address] [id number] [place] [address]- 9520 17 Jan, 2014 [facility] [place] [facility] [address] [id number] [place] [address]- 4575 Jan, 2013 [facility] [place] [facility] [address] [id number] [place] [address]- 6877 Jan, 2013 [facility] [place] [facility] [address] [id number] [place] [address]- 2617 Jan, 2013 [facility] [place] [facility] [address] [id number] [place] [address]- 5427 Jan, 2013 [facility] [place] [facility] [address] [id number] [place] [address]- 8656 Jan, 2013 [facility] [place] [facility] [address] [id number] [place] [address]- 8033 Jan, 2013 [facility] [place] [facility] [address] [id number] [place] [address]- 4214 Dec, [facility] [place] [facility] [address] [id number] [place] [address]- 0627 Dec, [facility] [place] [facility] [address] [id number] [place] [address]- 9818 Nov, [facility] [place] [facility] [address] [id number] [place] [address]- 6531 Nov, [facility] [place] [facility] [address] [id number] [place] [address]- 0581 Nov, [facility] [place] [facility] [address] [id number] [place] [address]- 1961 Nov, [facility] [place] [facility] [address] [id number] [place] [address]- 8234 Nov, [facility] [place] [facility] [address] [id number] [place] [address]- 0838 Nov, [facility] [place] [facility] [address] [id number] [place] [address]- 2679 Nov, [facility] [place] [facility] [address] [id number] [place] [address]- 0881 Nov, [facility] [place] [facility] [address] [id number] [place] [address]- 1641 Nov, [facility] [place] [facility] [address] [id number] [place] [address]- 9880 Nov, [facility] [place] [facility] [address] [id number] [place] [address]- 5706 Nov, [facility] [place] [facility] [address] [id number] [place] [address]- 7891 Nov, [facility] [place] [facility] [address] [id number] [place] [address]- 2100 Oct, [facility] [place] [facility] [address] [id number] [place] [address]- 9811 Oct, [facility] [place] [facility] [address] [id number] [place] [address]- 9456 Oct, [facility] [place] [facility] [address] [id number] [place] [address]- 7852 Oct, [facility] [place] [facility] [address] [id number] [place] [address]- 6895 Oct, [facility] [place] [facility] [address] [id number] [place] [address]- 8375 Oct, [facility] [place] [facility] [address] [id number] [place] [address]- 7785 Oct, [facility] [place] [facility] [address] [id number] [place] [address]- 5127 Oct, [facility] [place] [facility] [address] [id number] [place] [address]- 4908 September, [facility] [place] [facility] [address] [id number] [place] [address]- 5040 September, [facility] [place] [facility] [address] [id number] [place] [address]- 7239 September, [facility] [place] [facility] [address] [id number] [place] [address]- 6403 September, [facility] [place] [facility] [address] [id number] [place] [address]- 0233 September, [facility] [place] [facility] [address] [id number] [place] [address]- 6082 September, [facility] [place] [facility] [address] [id number] [place] [address]- 5597 September, [facility] [place] [facility] [address] [id number] [place] [address]- 2088 September, [facility] [place] [facility] [address] [id number] [place] [address]- 3220 September, [facility] [place] [facility] [address] [id number] [place] [address]- 9409 September, [facility] [place] [facility] [address] [id number] [place] [address]- 0919 Aug, [facility] [place] [facility] [address] [id number] [place] [address]- 3885 Aug, [facility] [place] [facility] [address] [id number] [place] [address]- 1539 30 Aug, 2013 [facility] [place] [facility] [address] [id number] [place] [address]- 5235 30 Aug, 2013 [facility] [place] [facility] [address] [id number] [place] [address]- 4706 Aug, [facility] [place] [facility] [address] [id number] [place] [address] 28 Aug, 2013 [facility] [place] [facility] [address] [id number] [place] [address] 16 Aug, 2013 [facility] [place] [facility] [address] [id number] [place] [address] 16 Aug, 2013 [facility] [place] [facility] [address] [id number] [place] [address] Aug, [facility] [place] [facility] [address] [id number] [place] [address] 14 Aug, 2013 [facility] [place] [facility] [address] [id number] [place] [address] Aug, [facility] [place] [facility] [address] [facility] [id number] [place] [address] Aug, [facility] [place] [facility] [address] [id number] [place] [address] Aug, [facility] [place] [facility] [address] [id number] [place] [address] Aug, [facility] [place] [facility] [address] [id number] [place] [address] Jul, [facility] [place] [facility] [address] [id number] [place] [address] Jul, [facility] [place] [facility] [address] [id number] [place] [address] Jul, [facility] [place] [facility] [address] [facility] [id number] [place] [address] Jul, [facility] [place] [facility] [address] [facility] [id number] [place] [address] Jun, [facility] [place] [facility] [address] [facility] [id number] [place] [address] Jun, [facility] [place] [facility] [address] [id number] [place] [address] 14 Jun, 2013 [facility] [place] [facility] [address] [id number] [place] [address] Jun, [facility] [place] [facility] [address] [id number] [place] [address] Jun, [facility] [place] [facility] [address] [facility] [id number] [place] [address] Jun, [facility] [place] [facility] [address] [id number] [place] [address] Jun, [facility] [place] [facility] [address] [id number] [place] [address] May, [facility] [place] [facility] [address] [id number] [place] [address] May, [facility] [place] [facility] [address] [id number] [place] [address] May, [facility] [place] [facility] [address] [id number] [place] [address] May, [facility] [place] [facility] [address] [id number] [place] [address] May, [facility] [place] [facility] [address] [id number] [place] [address] May, [facility] [place] [facility] [address] [id number] [place] [address] Apr, [facility] [place] [facility] [address] [id number] [place] [address] Apr, [facility] [place] [facility] [address] [id number] [place] [address] Mar, [facility] [place] [facility] [address] [id number] [place] [address] Mar, [facility] [place] [facility] [address] [id number] [place] [address] Mar, [facility] [place] [facility] [address] [id number] [place] [address] Mar, [facility] [place] [facility] [address] [id number] [place] [address] Mar, [facility] [place] [facility] [address] [id number] [place] [address] Mar, [facility] [place] [facility] [address] [id number] [place] [address] Feb, [facility] [place] [facility] [address] [id number] [place] [address] Feb, [facility] [place] [facility] [address] [id number] [place] [address] Feb, [facility] [place] [facility] [address] [id number] [place] [address] Feb, [facility] [place] [facility] [address] [id number] [place] [address] Feb, [facility] [place] [facility] [address] [id number] [place] [address] Jan, [facility] [place] [facility] [address] [id number] [place] [address] Dec, [facility] [place] [facility] [address] [id number] [place] [address] Dec, [facility] [place] [facility] [address] [id number] [place] [address] Oct, [facility] [place] [facility] [address] [id number] [place] [address] Oct, [facility] [place] [facility] [address] [id number], [place] [address] Oct, [facility] [place] [facility] [address] [id number], [place] [address] September, [facility] [place] [facility] [address] [id number], [place] [address] September, [facility] [place] [facility] [address] [id number] [place] [address] Aug, [facility] [place] [facility] [address] [id number], [place] [address] Aug, [facility] [place] [facility] [address] [id number] [place] [address] Jul, [facility] [place] [facility] [address] [id number] [place] [address] May, [facility] [address] [id number] [place] [address] May, [facility] [place] [facility] [address] [id number] [place] [address] Apr, [facility] [place] [facility] [address] [id number] [place] [address] Apr, [facility] [place] [facility] [address] [id number] [place] [address] Apr, [facility] [place] [facility] [address] [id number] [place] [address] Apr, [facility] [place] [facility] [address] [id number] [place] [address] Apr, [facility] [address] [id number] [place] [address] Apr, [facility] [place] [facility] [address] [id number] [place] [address] Apr, [facility] [place] [facility] [address] [id number] [place] [address] Apr, [facility] [place] [facility] [address] [id number] [place] [address] Mar, [facility] [place] [facility] [address] [id number] [place] [address] Mar, [facility] [place] [facility] [address] [id number] [place] [address] Feb, [facility] [place] [facility] [address] [id number] [place] [address] Feb, [facility] [place] [facility] [address] [id number] [place] [address] Feb, [facility] [place] [facility] [address] [id number] [place] [address] Jan, [facility] [place] [facility] [address] [id number] [place] [address] Jan, [facility] [address] [id number] [place] [address] Dec, [facility] [place] [facility] [address] [id number] [place] [address] Dec, [facility] [address] [id number] [place] [address] Dec, [facility] [address] [id number] [place] [address] Dec, [facility] [place] [facility] [address] [id number] [place] [address] Nov, [facility] [address] [id number] [place] [address] Nov, [facility] [address] [id number] [place] [address] Nov, [facility] [address] [id number] [place] [address] September, [facility] [address] [id number] [place] [address] September, [facility] [address] [id number] [place] [address] September, [facility] [address] [id number] [place] [address] Aug, [facility] [place] [facility] [address] [id number] [place] [address] Jun, [facility] [place] [facility] [address] [id number] [place] [address] May, [facility] [place] [facility] [address] [id number] [place] [address] Apr, [facility] [place] [facility] [address] [id number][place] [address] Apr, [facility] [id number] [address] Apr, [facility] [id number], [place] [address] Mar, [facility] [id number], [place] [address] Mar, [facility] [id number], [place] [address] Feb, [facility] [id number], [place] [address] Feb, [facility] [id number] [address] [address] Feb, [facility] [id number], [place] [address] Feb, [facility] [id number], [place] [address] Nov, [facility] [address] [id number], [place] [address] Oct, IMMUNIZATIONS No Known Immunizations SOCIAL HISTORY Never Assessed REASON FOR VISIT Shortness of breath f/u-Kendall FITZGERALD PLAN OF CARE Activity Details Follow Up prn Reason: VITAL SIGNS Height 70 in 2017-08-28 Weight 355.7 lbs 2017-08-28 Temperature 97.7 degrees Fahrenheit 2017-08-28 Heart Rate 94 bpm 2017-08-28 Respiratory Rate 22 2017-08-28 Oximetry at rest on room air:94 % 2017-08-28 BMI 51.03 kg/m2 2017-08-28 Blood pressure systolic 128 mmHg 2017-08-28 Blood pressure diastolic 86 mmHg 2017-08-28 MEDICATIONS Medication Instructions Dosage Frequency Start Date End Date Duration Status Hydrocodone-Acetaminophen 10-325 MG Orally 3 times a day 1 tablet as needed 8h Aug, Active Brovana 15 MCG/2ML Inhalation Twice a day 1 vial in nebulizer 12h Active Albuterol Sulfate (2.5 MG/3ML) 0.083% Inhalation every 4 hrs 1 vial in nebuizer as needed for cough or wheeze 4h Active Norvasc 5 MG Orally Once a day 1 tablet 24h Active Albuterol Sulfate HFA 108 (90 Base) MCG/ACT Inhalation every 6 hrs 2 puffs as needed 6h 23 Aug, 2017 90 days Active Budesonide 0.5 MG/2ML Inhalation Twice a day 1 vial in nebulizer 12h Active PredniSONE 10 mg Orally Once a day 4 tablets daily X 4 days, 3 tablets daily X 3 days, 2 tablets daily X 2 days, 1 tablet for 1 day 24h Active Acidophilus - Orally 2 times a day 1 12h 16 Aug, 2017 Mar, 30 days Active Zolpidem Tartrate 10 mg Orally Once a day prn 1 tablet at bedtime as needed Aug, Active ProAir HFA 108 (90 Base) MCG/ACT Inhalation every 4 hrs 2 puffs as needed for short of breath or wheeze 4h 90 Active Advair Diskus 250-50 MCG/DOSE Inhalation Twice a day 1 puff 12h 25 Aug, 2015 90 days Active RESULTS No Results PROCEDURES Procedure Date Ordered Result Body Site [facility] VISIT ESTABLISHED PATIENT August 28, 2017 INSTRUCTIONS MEDICATIONS ADMINISTERED No Known Medications [...] for surgery only Hospitalization History sepsis at [facility] 08/2017
--- OUTSIDE RECORDS SUMMARY | 2018-04-04 14:24 | XMS REPORT ---
Author Author JENNIFER FERRELL Organization [facility] Address [address] [place] [address] Care Team Providers Care Advertising Agent Name Role Phone JENNIFER FERRELL Unavailable PROBLEMS Type Condition ICD9-CM Code QOE33-TZ Code Onset Dates Condition Status SNOMED Code Problem Chronic obstructive pulmonary disease, unspecified J44.9 Active 87168077 Problem Body mass index (BMI) of 50-59.9 in adult Z68.43 Active 689286492 Problem Obstructive sleep apnea syndrome G47.33 Active 90132158 Problem Thrombocytopenia D69.6 Active 357627475 Problem Chronic obstructive pulmonary disease, unspecified COPD type J44.9 Active 20728227 Problem Other obesity due to excess calories E66.09 Active [id number] Problem Other emphysema J43.8 Active 13135479 Problem Acute exacerbation of chronic obstructive pulmonary disease (COPD) J44.1 Active 414299817 Problem Chronic obstructive pulmonary disease with (acute) exacerbation J44.1 Active 343372564 Problem Gastroesophageal reflux disease without esophagitis K21.9 Active 310746439 Problem Mild intermittent asthma without complication J45.20 Active 967836770 Problem Shortness of breath R06.02 Active 023334917 Problem Insomnia G47.00 Active 683699798 Problem Primary insomnia F51.01 Active 1942188 Problem Anxiety F41.9 Active 66805650 Problem Dysthymia F34.1 Active 53614815 Problem Low back pain M54.5 Active 690091611 ALLERGIES No Known Allergies ENCOUNTERS Encounter Location Date Diagnosis [facility] [address] [facility] [id number] [address] Dec, [facility] [address] [id number], [place] [address] Nov, Acute exacerbation of chronic obstructive pulmonary disease (COPD) J44.1 ; Primary insomnia F51.01 and Low back pain M54.5 [facility] [id number] [place] [address] 86793- 8905 September, BMI 50.0-59.9, adult Z68.43 and Chronic obstructive pulmonary disease, unspecified COPD type J44.9 [facility] [id number] [place] [address] 99302- 1853 23 Aug, 2017 Chronic obstructive pulmonary disease, unspecified J44.9 ; Primary insomnia F51.01 ; Low back pain M54.5 and BMI 50.0-59.9, adult Z68.43 [facility] [id number] [place] [address] 40377- 4513 16 Aug, 2017 Shortness of breath R06.02 ; Loose stools R19.5 and BMI 50.0 -59.9, adult Z68.43 [facility] [id number] [place] [address] 91656- 2504 Aug, Acute renal injury N17.9 and Thrombocytopenia D69.6 [facility] [id number] [place] [address] 12413- 7754 May, [facility] [id number] [place] [address] 97885- 2363 Apr, [facility] [id number] [place] [address] 21679 -8448 Mar, Acute exacerbation of chronic obstructive pulmonary disease (COPD) J44.1 ; BMI 50.0-59.9, adult Z68.43 and BMI 60.0-69.9, adult Z68.44 [facility] [id number] [place] [address] 26140- 8440 Mar, [facility] [address] [address]11- 3845 18 Feb, 2017 Right anterior shoulder pain M25.511 ; Encounter for immunization Z23 ; Other emphysema J43.8 ; Other obesity due to excess calories E66.09 ; Body mass index (BMI) of 50-59.9 in adult Z68.43 and Low back pain M54.5 [facility] [id number] [place] [address] 57817- 4573 Feb, [facility] [id number] [place] [address] 40525- 1811 Feb, Low back pain M54.5 [facility] [id number] [place] [address] 27933- 3838 Jan, [facility] [address] 11740- 2574 Jan, Low back pain M54.5 [facility] [id number] [place] [address] 32298- 6980 Dec, Shortness of breath R06.02 [facility] [id number] [place] [address] 99318- 0429 Dec, Low back pain M54.5 [facility] [id number] [place] [address] 63122- 4082 Nov, Low back pain M54.5 [facility] [id number] [place] [address] 82183- 1067 Oct, [facility] [id number] [place] [address] 74487- 6697 Oct, Low back pain M54.5 [facility] [id number] [place] [address] 73137- 4394 September, Low back pain M54.5 [facility] [id number] [place] [address] 00668 -8685 September, Sore throat J02.9 and Strep throat J02.0 [facility] [id number] [place] [address] 87715- 7441 September, [facility] [id number] [place] [address] 63463- 9445 Aug, Low back pain M54.5 [facility] [address], [place] [address] 7412 Aug, Medicare welcome exam Z00.00 ; Prostate cancer screening Z12.5 ; Encounter for screening for lung cancer Z12.2 and Lipid screening Z13.220 [facility] [address], [place] [address] 3541 Jul, [facility] [id number] [place] [address] 27561- 3329 Jul, Low back pain M54.5 [facility] [id number] [place] [address] 31067- 3386 Jul, [facility] [id number] [place] [address] 63975- 9583 Jun, [facility] [id number] [place] [address] 80166- 0598 Jun, Anxiety F41.9 and Low back pain M54.5 [facility] [id number] [place] [address] 09892- 4676 Jun, Shortness of breath R06.02 [facility] [id number] [place] [address] 21967- 1197 May, Anxiety F41.9 and Low back pain M54.5 [facility] [id number] [place] [address] 71061- 3299 May, [facility] [id number] [place] [address] 12563- 8643 Apr, [facility] [id number] [place] [address] 51816- 9881 Apr, Chronic obstructive pulmonary disease, unspecified J44.9 [facility] [address], [place] [address]- 0668 Apr, [facility] [id number] [place] [address] 99959- 2609 Apr, Chronic obstructive pulmonary disease, unspecified J44.9 [facility] [id number] [place] [address] 49144- 2332 Apr, [facility] [id number] [place] [address] 97634- 6069 Apr, Anxiety F41.9 and Low back pain M54.5 [facility] [address] 61968- 4892 Mar, Encounter for immunization Z23 ; Obstructive sleep apnea syndrome G47.33 ; Low back pain M54.5 and Anxiety F41.9 [facility] [address] 52146- 0317 Mar, Chronic obstructive pulmonary disease, unspecified J44.9 [facility] [id number] [place] [address] 64651- 3254 Mar, Chronic obstructive pulmonary disease, unspecified J44.9 [facility] [id number] [place] [address] 60593- 7800 Mar, Chronic obstructive pulmonary disease, unspecified J44.9 [facility] [id number] [place] [address] 90257- 7170 Feb, [facility] [id number] [place] [address] 88941- 6269 Feb, [facility] [id number] [place] [address] 65589- 1281 Feb, Chronic obstructive pulmonary disease, unspecified J44.9 [facility] [id number] [place] [address] 11542- 9570 Feb, [facility] [address] 40297- 9149 Feb, Low back pain M54.5 ; Anxiety F41.9 and Bronchitis J40 [facility] [id number] [place] [address] 35617- 1136 Jan, [facility] [address] [id number] [address]- 8399 15 Jan, 2016 Anxiety F41.9 [facility] [id number] [place] [address] 92822- 7156 12 Jan, 2016 Chronic obstructive pulmonary disease, unspecified J44.9 [facility] [id number] [place] [address] 28623- 0517 06 Jan, 2016 Low back pain M54.5 [facility] [id number] [place] [address] 84989- 1512 Dec, Vertigo R42 [facility] [id number] [place] [address] 71124- 2385 Dec, [facility] [id number] [place] [address] 12329- 2499 Nov, [facility] [id number] [place] [address] 34699- 7306 Nov, Low back pain M54.5 and Anxiety F41.9 [facility] [id number] [place] [address] 91964- 9205 Nov, [facility] [id number] [place] [address] 61424- 2549 Nov, [facility] [id number] [place] [address] 32706- 5040 Oct, Low back pain M54.5 and Anxiety F41.9 [facility] [id number] [place] [address] 12324- 6423 September, [facility] [id number] [place] [address] 87636- 8442 Aug, Shortness of breath R06.02 [facility] [id number] [place] [address] 33066- 3584 Aug, Shortness of breath R06.02 [facility] [id number] [place] [address] 21612- 1407 Aug, [facility] [address] [place] [address]- 0100 Jul, Insomnia G47.00 and Shortness of breath R06.02 [facility] [address] [facility] [id number] [place] [address]- 5979 Jul, [facility] [id number] [place] [address], [place] [address]- 2729 Jul, [facility] [address] [id number] [place] [address]- 7269 Jul, Bronchitis J40 [facility] [id number] [place] [address], [place] [address]- 0007 Jul, [facility] [id number] [place] [address]- 7819 Jun, [facility] [id number] [place] [address], [place] [address]- 8381 Jun, [facility] [address] [place] [address]- 3134 May, [facility] [address] [place] [address]- 6072 May, [facility] [address] [place] [address]- 3341 Apr, [facility] [address], [place] [address]- 7262 Apr, [facility] [address] [id number] [place] [address]- 1037 Mar, [facility] [id number] [place] [address]- 5626 Mar, [facility] [address] [id number] [place] [address]- 6416 Mar, [facility] [address], [place] [address]- 0720 Feb, [facility] [address], [place] [address]- 0447 Feb, [facility] [address] 1303 Feb, Chronic obstructive pulmonary disease, unspecified J44.9 [facility] [address], [place] [address]- 0676 Jan, [facility] [id number], [place] [address]- 4161 Jan, [facility] [id number] [place] [address] 175194- 6448 Dec, [facility] [id number], [place] [address]- 3119 Dec, [facility] [id number] [place] [address] 63666- 6258 Dec, High risk medication use V58.69 ; Back pain 724.5 ; Insomnia 780.52 ; Screening, lipid V77.91 and Screening for prostate cancer V76.44 [facility] [address] 6934 Nov, [facility] [address], [place] [address]- 2411 Nov, [facility] [address], [place] [address]- 0639 Nov, [facility] [address], [place] [address]- 8715 Oct, [facility] [address] 8861 Oct, [facility] [address]- 1486 September, [facility] [address], [place] [address]- 2485 Aug, 2014 [facility] [place] [facility] [address] [id number] [place] [address]- 9282 Aug, [facility] [place] [facility] [address] [id number] [place] [address]- 8030 Jul, [facility] [place] [facility] [address] [id number] [place] [address]- 3976 Jul, [facility] [place] [facility] [address] [id number] [place] [address]- 3861 Jul, [facility] [place] [facility] [address] [id number] [place] [address]- 7345 Jul, [facility] [place] [facility] [address] [id number] [place] [address]- 3246 Jul, [facility] [place] [facility] [address] [id number] [place] [address]- 6702 Jul, [facility] [place] [facility] [address] [id number] [place] [address]- 9950 Jun, [facility] [place] [facility] [address] [id number] [place] [address]- 1486 Jun, [facility] [place] [facility] [address] [id number] [place] [address]- 0593 Jun, [facility] [place] [facility] [address] [id number] [place] [address]- 2931 Jun, [facility] [place] [facility] [address] [id number], [place] [address]- 9453 May, [facility] [place] [facility] [address] [id number] [place] [address]- 7799 May, [facility] [place] [facility] [address] [id number] [place] [address]- 6876 May, [facility] [place] [facility] [address] [id number] [place] [address]- 7478 May, [facility] [place] [facility] [address] [id number] [place] [address]- 8380 May, [facility] [place] [facility] [address] [id number] [place] [address]- 9688 May, [facility] [place] [facility] [address] [id number] [place] [address]- 4194 Apr, [facility] [place] [facility] [address] [id number] [place] [address]- 0393 Apr, [facility] [place] [facility] [address] [id number] [place] [address]- 8430 Mar, [facility] [place] [facility] [address] [id number] [place] [address]- 0728 Mar, [facility] [place] [facility] [address] [id number] [place] [address]- 3993 Mar, [facility] [place] [facility] [address] [id number] [place] [address]- 9441 Mar, [facility] [place] [facility] [address] [id number] [place] [address]- 2659 Feb, [facility] [place] [facility] [address] [id number] [place] [address]- 7236 16 Feb, 2014 [facility] [place] [facility] [address] [id number] [place] [address]- 6332 Feb, [facility] [place] [facility] [address] [id number] [place] [address]- 5613 Feb, [facility] [place] [facility] [address] [id number] [place] [address]- 3038 23 Jan, 2014 [facility] [place] [facility] [address] [id number] [place] [address]- 4963 23 Jan, 2014 [facility] [place] [facility] [address] [id number] [place] [address]- 5396 17 Jan, 2014 [facility] [place] [facility] [address] [id number] [place] [address]- 8402 17 Jan, 2014 [facility] [place] [facility] [address] [id number] [place] [address]- 9756 Jan, 2013 [facility] [place] [facility] [address] [id number] [place] [address]- 5806 Jan, 2013 [facility] [place] [facility] [address] [id number] [place] [address]- 7436 Jan, 2013 [facility] [place] [facility] [address] [id number] [place] [address]- 3195 Jan, 2013 [facility] [place] [facility] [address] [id number] [place] [address]- 6303 Jan, 2013 [facility] [place] [facility] [address] [id number] [place] [address]- 4462 Jan, 2013 [facility] [place] [facility] [address] [id number] [place] [address]- 2896 Dec, [facility] [place] [facility] [address] [id number] [place] [address]- 9748 Dec, [facility] [place] [facility] [address] [id number] [place] [address]- 4360 Nov, [facility] [place] [facility] [address] [id number] [place] [address]- 3612 Nov, [facility] [place] [facility] [address] [id number] [place] [address]- 4770 Nov, [facility] [place] [facility] [address] [id number] [place] [address]- 5515 Nov, [facility] [place] [facility] [address] [id number] [place] [address]- 7447 Nov, [facility] [place] [facility] [address] [id number] [place] [address]- 0556 Nov, [facility] [place] [facility] [address] [id number] [place] [address]- 6602 Nov, [facility] [place] [facility] [address] [id number] [place] [address]- 1675 Nov, [facility] [place] [facility] [address] [id number] [place] [address]- 9485 Nov, [facility] [place] [facility] [address] [id number] [place] [address]- 6319 Nov, [facility] [place] [facility] [address] [id number] [place] [address]- 1107 Nov, [facility] [place] [facility] [address] [id number] [place] [address]- 7596 Nov, [facility] [place] [facility] [address] [id number] [place] [address]- 4847 Oct, [facility] [place] [facility] [address] [id number] [place] [address]- 7722 Oct, [facility] [place] [facility] [address] [id number] [place] [address]- 3348 Oct, [facility] [place] [facility] [address] [id number] [place] [address]- 0534 Oct, [facility] [place] [facility] [address] [id number] [place] [address]- 7294 Oct, [facility] [place] [facility] [address] [id number] [place] [address]- 7490 Oct, [facility] [place] [facility] [address] [id number] [place] [address]- 9469 Oct, [facility] [place] [facility] [address] [id number] [place] [address]- 8090 Oct, [facility] [place] [facility] [address] [id number] [place] [address]- 7067 September, [facility] [place] [facility] [address] [id number] [place] [address]- 8049 September, [facility] [place] [facility] [address] [id number] [place] [address]- 2148 September, [facility] [place] [facility] [address] [id number] [place] [address]- 6897 September, [facility] [place] [facility] [address] [id number] [place] [address]- 7025 September, [facility] [place] [facility] [address] [id number] [place] [address]- 5690 September, [facility] [place] [facility] [address] [id number] [place] [address]- 3913 September, [facility] [place] [facility] [address] [id number] [place] [address]- 6235 September, [facility] [place] [facility] [address] [id number] [place] [address]- 3932 September, [facility] [place] [facility] [address] [id number] [place] [address]- 0857 September, [facility] [place] [facility] [address] [id number] [place] [address]- 0549 Aug, [facility] [place] [facility] [address] [id number] [place] [address]- 1082 Aug, [facility] [place] [facility] [address] [id number] [place] [address]- 1115 30 Aug, 2013 [facility] [place] [facility] [address] [id number] [place] [address]- 1465 30 Aug, 2013 [facility] [place] [facility] [address] [id number] [place] [address]- 3500 Aug, [facility] [place] [facility] [address] [id number] [place] [address]- 9591 28 Aug, 2013 [facility] [place] [facility] [address] [id number] [place] [address] 16 Aug, 2013 [facility] [place] [facility] [address] [id number] [place] [address] 16 Aug, 2013 [facility] [place] [facility] [address] [id number] [place] [address] Aug, [facility] [place] [facility] [address] [id number] [place] [address] 14 Aug, 2013 [facility] [place] [facility] [address] [id number] [place] [address] Aug, [facility] [place] [facility] [address] [facility] [id number] [place] [address] Aug, [facility] [place] [facility] [address] [id number] [place] [address] Aug, [facility] [place] [facility] [address] [id number] [place] [address] Aug, [facility] [place] [facility] [address] [id number] [place] [address] Jul, [facility] [place] [facility] [address] [id number] [place] [address] Jul, [facility] [place] [facility] [address] [id number] [place] [address] Jul, [facility] [place] [facility] [address] [facility] [id number] [place] [address] Jul, [facility] [place] [facility] [address] [facility] [id number] [place] [address] Jun, [facility] [place] [facility] [address] [facility] [id number] [place] [address] Jun, [facility] [place] [facility] [address] [id number] [place] [address] 14 Jun, 2013 [facility] [place] [facility] [address] [id number] [place] [address] Jun, [facility] [place] [facility] [address] [id number] [place] [address] Jun, [facility] [place] [facility] [address] [facility] [id number] [place] [address] Jun, [facility] [place] [facility] [address] [id number] [place] [address] Jun, [facility] [place] [facility] [address] [id number] [place] [address] May, [facility] [place] [facility] [address] [id number] [place] [address] May, [facility] [place] [facility] [address] [id number] [place] [address] May, [facility] [place] [facility] [address] [id number] [place] [address] May, [facility] [place] [facility] [address] [id number] [place] [address] May, [facility] [place] [facility] [address] [id number] [place] [address] May, [facility] [place] [facility] [address] [id number] [place] [address] Apr, [facility] [place] [facility] [address] [id number] [place] [address] Apr, [facility] [place] [facility] [address] [id number] [place] [address] Mar, [facility] [place] [facility] [address] [id number] [place] [address] Mar, [facility] [place] [facility] [address] [id number] [place] [address] Mar, [facility] [place] [facility] [address] [id number] [place] [address] Mar, [facility] [place] [facility] [address] [id number] [place] [address] Mar, [facility] [place] [facility] [address] [id number] [place] [address] Mar, [facility] [place] [facility] [address] [id number] [place] [address] Feb, [facility] [place] [facility] [address] [id number] [place] [address] Feb, [facility] [place] [facility] [address] [id number] [place] [address] Feb, [facility] [place] [facility] [address] [id number] [place] [address] Feb, [facility] [place] [facility] [address] [id number] [place] [address] Feb, [facility] [place] [facility] [address] [id number] [place] [address] Jan, [facility] [place] [facility] [address] [id number] [place] [address] Dec, [facility] [place] [facility] [address] [id number] [place] [address] Dec, [facility] [place] [facility] [address] [id number] [place] [address] Oct, [facility] [place] [facility] [address] [id number] [place] [address] Oct, [facility] [place] [facility] [address] [id number], [place] [address] Oct, [facility] [place] [facility] [address] [id number], [place] [address] September, [facility] [place] [facility] [address] [id number], [place] [address] September, [facility] [place] [facility] [address] [id number] [place] [address] Aug, [facility] [place] [facility] [address] [id number], [place] [address] Aug, [facility] [place] [facility] [address] [id number] [place] [address] Jul, [facility] [place] [facility] [address] [id number] [place] [address] May, [facility] [address] [id number] [place] [address] May, [facility] [place] [facility] [address] [id number] [place] [address] Apr, [facility] [place] [facility] [address] [id number] [place] [address] Apr, [facility] [place] [facility] [address] [id number] [place] [address] Apr, [facility] [place] [facility] [address] [id number] [place] [address] Apr, [facility] [place] [facility] [address] [id number] [place] [address] Apr, [facility] [address] [id number] [place] [address] Apr, [facility] [place] [facility] [address] [id number] [place] [address] Apr, [facility] [place] [facility] [address] [id number] [place] [address] Apr, [facility] [place] [facility] [address] [id number] [place] [address] Mar, [facility] [place] [facility] [address] [id number] [place] [address] Mar, [facility] [place] [facility] [address] [id number] [place] [address] Feb, [facility] [place] [facility] [address] [id number] [place] [address] Feb, [facility] [place] [facility] [address] [id number] [place] [address] Feb, [facility] [place] [facility] [address] [id number] [place] [address] Jan, [facility] [place] [facility] [address] [id number] [place] [address] Jan, [facility] [address] [id number] [place] [address] Dec, [facility] [place] [facility] [address] [id number] [place] [address] Dec, [facility] [address] [id number] [place] [address] Dec, [facility] [address] [id number] [place] [address] Dec, [facility] [place] [facility] [address] [id number] [place] [address] Nov, [facility] [address] [id number] [place] [address] Nov, [facility] [address] [id number] [place] [address] Nov, [facility] [address] [id number] [place] [address] September, [facility] [address] [id number] [place] [address] September, [facility] [address] [id number] [place] [address] September, [facility] [address] [id number] [place] [address] Aug, [facility] [place] [facility] [address] [id number] [place] [address] Jun, [facility] [place] [facility] [address] [id number] [place] [address] May, [facility] [place] [facility] [address] [id number] [place] [address] Apr, [facility] [place] [facility] [address] [id number], [place] [address] Apr, [facility] [id number], [place] [address] Apr, [facility] [id number], [place] [address] Mar, [facility] [id number], [place] [address] Mar, [facility] [id number] [place] [address] Feb, [facility] [id number], [place] [address] Feb, [facility] [id number] [place] [address] Feb, [facility] [id number], [place] [address] Feb, [facility] [id number], [place] [address] Nov, [facility] [address] [id number], [place] [address] Oct, IMMUNIZATIONS No Known Immunizations SOCIAL HISTORY Never Assessed REASON FOR VISIT O2 check, Patient reports that his has had chest heaviness, SOB and fatigue over the weekend. He feels that he needs another round of Predisone as he was recently in the Hospital for this., Amie PLAN OF CARE Activity Details Follow Up 1 Week Reason:SOA VITAL SIGNS Height 70 in 2017-08-21 Weight 374.5 lbs 2017-08-21 Temperature 98.1 degrees Fahrenheit 2017-08-21 Heart Rate 96 bpm 2017-08-21 Respiratory Rate 24 2017-08-21 Oximetry on room air:100 % 2017-08-21 BMI 53.73 kg/m2 2017-08-21 Blood pressure systolic 122 mmHg 2017-08-21 Blood pressure diastolic 74 mmHg 2017-08-21 MEDICATIONS Medication Instructions Dosage Frequency Start Date End Date Duration Status ProAir HFA 108 (90 Base) MCG/ACT Inhalation every 4 hrs 2 puffs as needed for short of breath or wheeze 4h 90 Active Advair Diskus 250-50 MCG/DOSE Inhalation Twice a day 1 puff 12h 25 Aug, 2015 90 days Active Norvasc 5 MG Orally Once a day 1 tablet 24h Active Acidophilus - Orally 2 times a day 1 12h 16 Aug, 2017 Mar, 30 days Active Budesonide 0.5 MG/2ML Inhalation Twice a day 1 vial in nebulizer 12h Active Albuterol Sulfate (2.5 MG/3ML) 0.083% Inhalation every 4 hrs 1 vial in nebuizer as needed for cough or wheeze 4h Active PredniSONE 10 mg Orally Once a day 4 tablets daily X 4 days, 3 tablets daily X 3 days, 2 tablets daily X 2 days, 1 tablet for 1 day 24h Active Transderm-Scop 1 MG/3DAYS Transdermal every 3 days apply 1 patch as directed Mar, Active Brovana 15 MCG/2ML Inhalation Twice a day 1 vial in nebulizer 12h Active Levofloxacin 750 MG Orally Once a day 1 tablet 24h Active Ambien 10 MG Orally Once a day 1 tablet at bedtime 24h 30 days Active RESULTS Name Result Date Reference Range Xray : Chest 2 View (IN HOUSE) 2017-08-21 PROCEDURES Procedure Date Ordered Result Body Site X-RAY EXAM CHEST 2 VIEWS August 21, 2017 [facility] VISIT ESTABLISHED PATIENT August 21, 2017 INSTRUCTIONS MEDICATIONS ADMINISTERED No Known Medications [...] surgery only Hospitalization History sepsis at [facility] 08/2017
--- OUTSIDE RECORDS SUMMARY | 2018-04-04 14:32 | XMS REPORT | Continuity of Care Document ---
Author Author [facility] Ctr of [facility] Ctr of [facility] Address Unknown Phone Unavailable Allergies Active Description Code Type Severity Reaction Onset Reported/Identified Relationship to Patient Clinical Status Yes No Known Drug Allergies [id number] Drug Allergy Unknown N/A 03/20/2017 Medications There is no data. Problems Date Dx Coded Attending Type Code Diagnosis Diagnosed By 10/18/2010 JENNIFER FERRELL APRN 401.1 HYPERTENSION, BENIGN ESSENTIAL 10/18/2010 JENNIFER FERERLL APRN 496 CHRONIC AIRWAY OBSTRUCTION NOT ELSEWHERE CLASSIFIED 10/18/2010 JENNIFER FERRELL APRN 719.45 Pain In Joint Involving Pelvic Region And Thigh 10/18/2010 JENNIFER FERRELL APRN 719.46 Pain In Joint Involving Lower Leg 10/18/2010 JENNIFER FERRELL APRN V76.44 SCREENING FOR MALIGNANT NEOPLASMS OF THE PROSTATE 10/18/2010 LUCI ROMERO MD 401.1 HYPERTENSION, BENIGN ESSENTIAL 10/18/2010 LUCI ROMERO MD 496 CHRONIC AIRWAY OBSTRUCTION NOT ELSEWHERE CLASSIFIED 10/18/2010 LUCI ROMERO MD 719.45 Pain In Joint Involving Pelvic Region And Thigh 10/18/2010 LUCI ROMERO MD 719.46 Pain In Joint Involving Lower Leg 10/18/2010 LUCI ROMERO MD V76.44 SCREENING FOR MALIGNANT NEOPLASMS OF THE PROSTATE 10/18/2010 401.1 HYPERTENSION, BENIGN ESSENTIAL 10/18/2010 496 CHRONIC AIRWAY OBSTRUCTION NOT ELSEWHERE CLASSIFIED 10/18/2010 719.45 Pain In Joint Involving Pelvic Region And Thigh 10/18/2010 719.46 Pain In Joint Involving Lower Leg 10/18/2010 V76.44 SCREENING FOR MALIGNANT NEOPLASMS OF THE PROSTATE 10/18/2010 401.1 HYPERTENSION, BENIGN ESSENTIAL 10/18/2010 496 CHRONIC AIRWAY OBSTRUCTION NOT ELSEWHERE CLASSIFIED 10/18/2010 719.45 Pain In Joint Involving Pelvic Region And Thigh 10/18/2010 719.46 Pain In Joint Involving Lower Leg 10/18/2010 V76.44 SCREENING FOR MALIGNANT NEOPLASMS OF THE PROSTATE 10/18/2010 401.1 HYPERTENSION, BENIGN ESSENTIAL 10/18/2010 496 CHRONIC AIRWAY OBSTRUCTION NOT ELSEWHERE CLASSIFIED 10/18/2010 719.45 Pain In Joint Involving Pelvic Region And Thigh 10/18/2010 719.46 Pain In Joint Involving Lower Leg 10/18/2010 V76.44 SCREENING FOR MALIGNANT NEOPLASMS OF THE PROSTATE 10/18/2010 401.1 HYPERTENSION, BENIGN ESSENTIAL 10/18/2010 496 CHRONIC AIRWAY OBSTRUCTION NOT ELSEWHERE CLASSIFIED 10/18/2010 719.45 Pain In Joint Involving Pelvic Region And Thigh 10/18/2010 719.46 Pain In Joint Involving Lower Leg 10/18/2010 V76.44 SCREENING FOR MALIGNANT NEOPLASMS OF THE PROSTATE 10/18/2010 401.1 HYPERTENSION, BENIGN ESSENTIAL 10/18/2010 496 CHRONIC AIRWAY OBSTRUCTION NOT ELSEWHERE CLASSIFIED 10/18/2010 719.45 Pain In Joint Involving Pelvic Region And Thigh 10/18/2010 719.46 Pain In Joint Involving Lower Leg 10/18/2010 V76.44 SCREENING FOR MALIGNANT NEOPLASMS OF THE PROSTATE 10/18/2010 MARIAELENA HUGHESNYOKASTAJENNIFER S 401.1 HYPERTENSION, BENIGN ESSENTIAL 10/18/2010 YOKASTA FERRELL APRNNDA S 496 CHRONIC AIRWAY OBSTRUCTION NOT ELSEWHERE CLASSIFIED 10/18/2010 MARIAELENA HUGHESNYOKASTAJENNIFER S 719.45 Pain In Joint Involving Pelvic Region And Thigh 10/18/2010 MARIAELENA ION 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, JENNIFER S 719.46 Pain In Joint Involving Lower Leg 10/18/2010 YOKASTA FERRELL APRNNDA S V76.44 SCREENING FOR MALIGNANT NEOPLASMS OF THE PROSTATE 10/18/2010 MARIAELENA HUGHESN JENNIFER S 401.1 HYPERTENSION, BENIGN ESSENTIAL 10/18/2010 MARIAELENA HUGHESNYOKASTAJENNIFER S 496 CHRONIC AIRWAY OBSTRUCTION NOT ELSEWHERE CLASSIFIED 10/18/2010 YOKASTA FERRELL APRNNDA S 719.45 Pain In Joint Involving Pelvic Region And Thigh 10/18/2010 MARIAELENA ION 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 JENNIFER S 719.46 Pain In Joint Involving Lower Leg 10/18/2010 MARIAELENA HUGHESNYOKASTAJENNIFER S V76.44 SCREENING FOR MALIGNANT NEOPLASMS OF THE PROSTATE 10/18/2010 MEÑO FERRELL APRNA S 401.1 HYPERTENSION, BENIGN ESSENTIAL 10/18/2010 YOKASTA FERRELL APRNNDA S 496 CHRONIC AIRWAY OBSTRUCTION NOT ELSEWHERE CLASSIFIED 10/18/2010 YOKASTA FERRELL APRNNDA S 719.45 Pain In Joint Involving Pelvic Region And Thigh 10/18/2010 YOKASTA FERRELL APRNNDA S 719.46 Pain In Joint Involving Lower Leg 10/18/2010 JENNIFER FERRELL APRN S V76.44 SCREENING FOR MALIGNANT NEOPLASMS OF THE PROSTATE 10/18/2010 MEÑO FERRELL APRNA S 401.1 HYPERTENSION, BENIGN ESSENTIAL 10/18/2010 MEÑO FERRELL APRNA S 496 CHRONIC AIRWAY OBSTRUCTION NOT ELSEWHERE CLASSIFIED 10/18/2010 JENNIFER FERRELL APRN S 719.45 Pain In Joint Involving Pelvic Region And Thigh 10/18/2010 JENNIFER FERRELL APRN S 719.46 Pain In Joint Involving Lower Leg 10/18/2010 JENNIFER FERRELL APRN S V76.44 SCREENING FOR MALIGNANT NEOPLASMS OF THE PROSTATE 10/18/2010 VIOLETA KNIGHT APRN 401.1 HYPERTENSION, BENIGN ESSENTIAL 10/18/2010 VIOLETA KNIGHT APRN T 496 CHRONIC AIRWAY OBSTRUCTION NOT ELSEWHERE CLASSIFIED 10/18/2010 VIOLETA KNIGHT APRN 719.45 Pain In Joint Involving Pelvic Region And Thigh 10/18/2010 VIOLETA KNIGHT APRN 719.46 Pain In Joint Involving Lower Leg 10/18/2010 VIOLETA KNIGHT APRN V76.44 SCREENING FOR MALIGNANT NEOPLASMS OF THE PROSTATE 10/18/2010 JOSE LUIS ELLER MD 401.1 HYPERTENSION, BENIGN ESSENTIAL 10/18/2010 JOSE LUIS ELLER MD 49Susana CHRONIC AIRWAY OBSTRUCTION NOT ELSEWHERE CLASSIFIED 10/18/2010 JOSE LUIS ELLER MD 719.45 Pain In Joint Involving Pelvic Region And Thigh 10/18/2010 JOSE LUIS ELLER MD 719.46 Pain In Joint Involving Lower Leg 10/18/2010 JOSE LUIS ELLER MD V76.44 SCREENING FOR MALIGNANT NEOPLASMS OF THE PROSTATE 10/18/2010 MYCHAL WALDEN SIDNEY K 401.1 HYPERTENSION, BENIGN ESSENTIAL 10/18/2010 HORTA DO SIDNEY K 496 CHRONIC AIRWAY OBSTRUCTION NOT ELSEWHERE CLASSIFIED 10/18/2010 MYCHAL WALDEN SIDNEY K 719.45 Pain In Joint Involving Pelvic Region And Thigh 10/18/2010 HORTA DO, SIDNEY K 719.46 Pain In Joint Involving Lower Leg 10/18/2010 HORTA DO, SIDNEY K V76.44 SCREENING FOR MALIGNANT NEOPLASMS OF THE PROSTATE 10/18/2010 MARIAELENA ION 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, JENNIFER S 401.1 HYPERTENSION, BENIGN ESSENTIAL 10/18/2010 MARIAELENA ION 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, JENNIFER S 496 CHRONIC AIRWAY OBSTRUCTION NOT ELSEWHERE CLASSIFIED 10/18/2010 MARIAELENA ION 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, JENNIFER S 719.45 Pain In Joint Involving Pelvic Region And Thigh 10/18/2010 MARIAELENA ION 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, JENNIFER S 719.46 Pain In Joint Involving Lower Leg 10/18/2010 MARIAELENA ION 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, JENNIFER S V76.44 SCREENING FOR MALIGNANT NEOPLASMS OF THE PROSTATE 10/18/2010 MADL ION 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, VICKY L 401.1 HYPERTENSION, BENIGN ESSENTIAL 10/18/2010 MADL ION 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, VICKY L 496 CHRONIC AIRWAY OBSTRUCTION NOT ELSEWHERE CLASSIFIED 10/18/2010 MADL ION 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, VICKY L 719.45 Pain In Joint Involving Pelvic Region And Thigh 10/18/2010 MADL ION 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, VICKY L 719.46 Pain In Joint Involving Lower Leg 10/18/2010 MADL ION 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, VICKY L V76.44 SCREENING FOR MALIGNANT NEOPLASMS OF THE PROSTATE 10/18/2010 MARIAELENA ION 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, JENNIFER S 401.1 HYPERTENSION, BENIGN ESSENTIAL 10/18/2010 MARIAELENA ION 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, JENNIFER S 496 CHRONIC AIRWAY OBSTRUCTION NOT ELSEWHERE CLASSIFIED 10/18/2010 MARIAELENA ION 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, JENNIFER S 719.45 Pain In Joint Involving Pelvic Region And Thigh 10/18/2010 MARIAELENA ION 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, JENNIFER S 719.46 Pain In Joint Involving Lower Leg 10/18/2010 MARIAELENA ION 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, JENNIFER S V76.44 SCREENING FOR MALIGNANT NEOPLASMS OF THE PROSTATE 10/18/2010 MARIAELENA ION 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, JENNIFER S 401.1 HYPERTENSION, BENIGN ESSENTIAL 10/18/2010 MARIAELENA ION 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, JENNIFER S 496 CHRONIC AIRWAY OBSTRUCTION NOT ELSEWHERE CLASSIFIED 10/18/2010 MARIAELENA ION 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, JENNIFER S 719.45 Pain In Joint Involving Pelvic Region And Thigh 10/18/2010 MARIAELENA ION 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, JENNIFER S 719.46 Pain In Joint Involving Lower Leg 10/18/2010 YOKASTA FERRELL APRNNDA S V76.44 SCREENING FOR MALIGNANT NEOPLASMS OF THE PROSTATE 10/18/2010 YOKASTA FERRELL APRNNDA S 401.1 HYPERTENSION, BENIGN ESSENTIAL 10/18/2010 YOKASTA FERRELL APRNNDA S 496 CHRONIC AIRWAY OBSTRUCTION NOT ELSEWHERE CLASSIFIED 10/18/2010 YOKASTA FERRELL APRNNDA S 719.45 Pain In Joint Involving Pelvic Region And Thigh 10/18/2010 YOKASTA FERRELL APRNNDA S 719.46 Pain In Joint Involving Lower Leg 10/18/2010 YOKASTA FERRELL APRNNDA S V76.44 SCREENING FOR MALIGNANT NEOPLASMS OF THE PROSTATE 11/04/2010 MEÑO FERRELL APRNA S 726.5 ENTHESOPATHY OF HIP REGION 11/04/2010 MEÑO FERRELL APRNA S 733.92 CHONDROMALACIA 11/04/2010 LUCI ROMERO MD 726.5 ENTHESOPATHY OF HIP REGION 11/04/2010 LUCI ROMERO MD 733.92 CHONDROMALACIA 11/04/2010 726.5 ENTHESOPATHY OF HIP REGION 11/04/2010 733.92 CHONDROMALACIA 11/04/2010 726.5 ENTHESOPATHY OF HIP REGION 11/04/2010 733.92 CHONDROMALACIA 11/04/2010 726.5 ENTHESOPATHY OF HIP REGION 11/04/2010 733.92 CHONDROMALACIA 11/04/2010 726.5 ENTHESOPATHY OF HIP REGION 11/04/2010 733.92 CHONDROMALACIA 11/04/2010 726.5 ENTHESOPATHY OF HIP REGION 11/04/2010 733.92 CHONDROMALACIA 11/04/2010 YOKASTA FERRELL APRNNDA S 726.5 ENTHESOPATHY OF HIP REGION 11/04/2010 YOKASTA FERRELL APRNNDA S 733.92 CHONDROMALACIA 11/04/2010 YOKASTA FERRELL APRNNDA S 726.5 ENTHESOPATHY OF HIP REGION 11/04/2010 YOKASTA FERRELL APRNNDA S 733.92 CHONDROMALACIA 11/04/2010 YOKASTA FERRELL APRNNDA S 726.5 ENTHESOPATHY OF HIP REGION 11/04/2010 MARIAELENA ION 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, JENNIFER S 733.92 CHONDROMALACIA 11/04/2010 MARIAELENA ION 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, JENNIFER S 726.5 ENTHESOPATHY OF HIP REGION 11/04/2010 MARIAELENA ION 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, JENNIFER S 733.92 CHONDROMALACIA 11/04/2010 VIOLETA KNIGHT APRN 726.5 ENTHESOPATHY OF HIP REGION 11/04/2010 VIOLETA KNIGHT APRN 733.92 CHONDROMALACIA 11/04/2010 JOSE LUIS ELLER MD 726.5 ENTHESOPATHY OF HIP REGION 11/04/2010 JOSE LUIS ELLER MD 733.92 CHONDROMALACIA 11/04/2010 HORTA DO, SIDNEY K 726.5 ENTHESOPATHY OF HIP REGION 11/04/2010 HORTA DO, SIDNEY K 733.92 CHONDROMALACIA 11/04/2010 MARIAELENA ION 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, JENNIFER S 726.5 ENTHESOPATHY OF HIP REGION 11/04/2010 MARIAELENA ION 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, JENNIFER S 733.92 CHONDROMALACIA 11/04/2010 MADL ION 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, VICKY L 726.5 ENTHESOPATHY OF HIP REGION 11/04/2010 MADL ION 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, VICKY L 733.92 CHONDROMALACIA 11/04/2010 MARIAELENA ION 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, JENNIFER S 726.5 ENTHESOPATHY OF HIP REGION 11/04/2010 MARIAELENA ION 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, JENNIFER S 733.92 CHONDROMALACIA 11/04/2010 MARIAELENA ION 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, JENNIFER S 726.5 ENTHESOPATHY OF HIP REGION 11/04/2010 MARIAELENA ION 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, JENNIFER S 733.92 CHONDROMALACIA 11/04/2010 MARIAELENA ION 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, JENNIFER S 726.5 ENTHESOPATHY OF HIP REGION 11/04/2010 MARIAELENA ION 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, JENNIFER S 733.92 CHONDROMALACIA 02/10/2011 MARIAELENA ION 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, JENNIFER S 110.1 Onychomycosis 02/10/2011 MARIAELENA ION 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, JENNIFER S V04.81 Flu Dx (3 Yrs And Above, Im) 02/10/2011 LUCI ROMERO MD 110.1 Onychomycosis 02/10/2011 LUCI ROMERO MD V04.81 Flu Dx (3 Yrs And Above, Im) 02/10/2011 110.1 Onychomycosis 02/10/2011 V04.81 Flu Dx (3 Yrs And Above, Im) 02/10/2011 110.1 Onychomycosis 02/10/2011 V04.81 Flu Dx (3 Yrs And Above, Im) 02/10/2011 110.1 Onychomycosis 02/10/2011 V04.81 Flu Dx (3 Yrs And Above, Im) 02/10/2011 110.1 Onychomycosis 02/10/2011 V04.81 Flu Dx (3 Yrs And Above, Im) 02/10/2011 110.1 Onychomycosis 02/10/2011 V04.81 Flu Dx (3 Yrs And Above, Im) 02/10/2011 MARIAELENA SOTO JENNIFER S 110.1 Onychomycosis 02/10/2011 YOKASTA FERRELL APRNNDA S V04.81 Flu Dx (3 Yrs And Above, Im) 02/10/2011 MARIAELENA SOTO JENNIFER S 110.1 Onychomycosis 02/10/2011 YOKASTA FERRELL APRNNDA S V04.81 Flu Dx (3 Yrs And Above, Im) 02/10/2011 MARIAELENA SOTO JENNIFER S 110.1 Onychomycosis 02/10/2011 MARIAELENA SOTO JENNIFER S V04.81 Flu Dx (3 Yrs And Above, Im) 02/10/2011 MARIAELENA SOTO JENNIFER S 110.1 Onychomycosis 02/10/2011 YOKASTA FERRELL APRNNDA S V04.81 Flu Dx (3 Yrs And Above, Im) 02/10/2011 VIOLETA KNIGHT APRN 110.1 Onychomycosis 02/10/2011 VIOLETA KNIGHT APRN V04.81 Flu Dx (3 Yrs And Above, Im) 02/10/2011 JOSE LUIS ELLER MD 110.1 Onychomycosis 02/10/2011 JOSE LUIS ELLER MD V04.81 Flu Dx (3 Yrs And Above, Im) 02/10/2011 SIDNEY HORTA DO 110.1 Onychomycosis 02/10/2011 SIDNEY HORTA DO V04.81 Flu Dx (3 Yrs And Above, Im) 02/10/2011 MARIAELENA ION 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, JENNIFER S 110.1 Onychomycosis 02/10/2011 MARIAELENA ION 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, JENNIFER S V04.81 Flu Dx (3 Yrs And Above, Im) 02/10/2011 MADL ION 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, VICKY L 110.1 Onychomycosis 02/10/2011 MADL ION 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, VICKY L V04.81 Flu Dx (3 Yrs And Above, Im) 02/10/2011 MARIAELENA ION 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, JENNIFER S 110.1 Onychomycosis 02/10/2011 MARIAELENA ION 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, JENNIFER S V04.81 Flu Dx (3 Yrs And Above, Im) 02/10/2011 MARIAELENA ION 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, JENNIFER S 110.1 Onychomycosis 02/10/2011 MARIAELENA ION 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, JENNIFER S V04.81 Flu Dx (3 Yrs And Above, Im) 02/10/2011 MARIAELENA ION 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, JENNIFER S 110.1 Onychomycosis 02/10/2011 MARIAELENA ION 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, JENNIFER S V04.81 Flu Dx (3 Yrs And Above, Im) 03/01/2011 MARIAELENA ION 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, JENNIFER S 550.90 Inguinal Hernia Indirect Left 03/01/2011 NICK JARAMILLO, LUCI Pagan 550.90 Inguinal Hernia Indirect Left 03/01/2011 550.90 Inguinal Hernia Indirect Left 03/01/2011 550.90 Inguinal Hernia Indirect Left 03/01/2011 550.90 Inguinal Hernia Indirect Left 03/01/2011 550.90 Inguinal Hernia Indirect Left 03/01/2011 550.90 Inguinal Hernia Indirect Left 03/01/2011 MARIAELENA ION 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, JENNIFER S 550.90 Inguinal Hernia Indirect Left 03/01/2011 MARIAELENA ION 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, JENNIFER S 550.90 Inguinal Hernia Indirect Left 03/01/2011 MARIAELENA ION 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, JENNIFER S 550.90 Inguinal Hernia Indirect Left 03/01/2011 MARIAELENA ION 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, JENNIFER S 550.90 Inguinal Hernia Indirect Left 03/01/2011 EUGENE SOTO, VIOLETA Pratt 550.90 Inguinal Hernia Indirect Left 03/01/2011 DAPHNIE JARAMILLO, JOSE LUIS 550.90 Inguinal Hernia Indirect Left 03/01/2011 HORTA DO, SIDNEY K 550.90 Inguinal Hernia Indirect Left 03/01/2011 MARIAELENA ION 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, JENNIFER S 550.90 Inguinal Hernia Indirect Left 03/01/2011 MADL ION 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, VICKY L 550.90 Inguinal Hernia Indirect Left 03/01/2011 MARIAELENA ION 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, JENNIFER S 550.90 Inguinal Hernia Indirect Left 03/01/2011 MARIAELENA ION 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, JENNIFER S 550.90 Inguinal Hernia Indirect Left 03/01/2011 MARIAELENA ION 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, JENNIFER S 550.90 Inguinal Hernia Indirect Left 04/20/2011 MARIAELENA ION 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, JENNIFER S 386.19 Other Peripheral Vertigo 04/20/2011 NICK JARAMILLO, LUCI Pagan 386.19 Other Peripheral Vertigo 04/20/2011 386.19 Other Peripheral Vertigo 04/20/2011 386.19 Other Peripheral Vertigo 04/20/2011 386.19 Other Peripheral Vertigo 04/20/2011 386.19 Other Peripheral Vertigo 04/20/2011 386.19 Other Peripheral Vertigo 04/20/2011 MARIAELENA ION 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, JENNIFER S 386.19 Other Peripheral Vertigo 04/20/2011 MARIAELENA ION 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, JENNIFER S 386.19 Other Peripheral Vertigo 04/20/2011 MARIAELENA ION 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, JENNIFER S 386.19 Other Peripheral Vertigo 04/20/2011 MARIAELENA ION 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, JENNIFER S 386.19 Other Peripheral Vertigo 04/20/2011 VIOLETA KNIGHT APRN 386.19 Other Peripheral Vertigo 04/20/2011 JOSE LUIS ELLER MD 386.19 Other Peripheral Vertigo 04/20/2011 SIDNEY HORTA DO K 386.19 Other Peripheral Vertigo 04/20/2011 MARIAELENA ION 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, JENNIFER S 386.19 Other Peripheral Vertigo 04/20/2011 MADL ION 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, VICKY L 386.19 Other Peripheral Vertigo 04/20/2011 MARIAELENA ION 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, JENNIFER S 386.19 Other Peripheral Vertigo 04/20/2011 MARIAELENA ION 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, JENNIFER S 386.19 Other Peripheral Vertigo 04/20/2011 MARIAELENA ION 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, JENNIFER S 386.19 Other Peripheral Vertigo 05/16/2011 MARIAELENA ION 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, JENNIFER S 780.79 Other Malaise And Fatigue 05/16/2011 LUCI ROMERO MD 780.79 Other Malaise And Fatigue 05/16/2011 780.79 Other Malaise And Fatigue 05/16/2011 780.79 Other Malaise And Fatigue 05/16/2011 780.79 Other Malaise And Fatigue 05/16/2011 780.79 Other Malaise And Fatigue 05/16/2011 780.79 Other Malaise And Fatigue 05/16/2011 MARIAELENA ION 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, JENNIFER S 780.79 Other Malaise And Fatigue 05/16/2011 MARIAELENA ION 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, JENNIFER S 780.79 Other Malaise And Fatigue 05/16/2011 MARIAELENA ION 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, JENNIFER S 780.79 Other Malaise And Fatigue 05/16/2011 MARIAELENA ION 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, JENNIFER S 780.79 Other Malaise And Fatigue 05/16/2011 VIOLETA KNIGHT APRN 780.79 Other Malaise And Fatigue 05/16/2011 JOSE LUIS ELLER MD 780.79 Other Malaise And Fatigue 05/16/2011 SIDNEY HORTA DO 780.79 Other Malaise And Fatigue 05/16/2011 MARIAELENA ION 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, JENNIFER S 780.79 Other Malaise And Fatigue 05/16/2011 GOKUL ION 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, VICKY Townsend 780.79 Other Malaise And Fatigue 05/16/2011 MARIAELENA ION 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, JENNIFER S 780.79 Other Malaise And Fatigue 05/16/2011 MARIAELENA ION 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, JENNIFER S 780.79 Other Malaise And Fatigue 05/16/2011 MARIAELENA ION 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, JENNIFER S 780.79 Other Malaise And Fatigue 08/10/2011 MARIAELENA ION 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, JENNIFER S 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 OR MAINTAINING SLEEP 08/10/2011 LUCI ROMERO MD 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 OR MAINTAINING SLEEP 08/10/2011 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 OR MAINTAINING SLEEP 08/10/2011 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 OR MAINTAINING SLEEP 08/10/2011 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 OR MAINTAINING SLEEP 08/10/2011 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 OR MAINTAINING SLEEP 08/10/2011 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 OR MAINTAINING SLEEP 08/10/2011 MARIAELENA SOTO JENNIFER S 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 OR MAINTAINING SLEEP 08/10/2011 YOKASTA FERRELL APRNNDA S 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 OR MAINTAINING SLEEP 08/10/2011 YOKASTA FERRELL APRNNDA S 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 OR MAINTAINING SLEEP 08/10/2011 MARIAELENA SOTO JENNIFER S 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 OR MAINTAINING SLEEP 08/10/2011 VIOLETA KNIGHT APRN 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 OR MAINTAINING SLEEP 08/10/2011 JOSE LUIS ELLER MD 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 OR MAINTAINING SLEEP 08/10/2011 SIDNEY HORTA DO 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 OR MAINTAINING SLEEP 08/10/2011 MARIAELENAYOKASTA LUNDBERG APRNNDA S 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 OR MAINTAINING SLEEP 08/10/2011 VICKY HODGSON APRN 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 OR MAINTAINING SLEEP 08/10/2011 YOKASTA FERRELL APRNNDA S 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 OR MAINTAINING SLEEP 08/10/2011 YOKASTA FERRELL APRNNDA S 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 OR MAINTAINING SLEEP 08/10/2011 YOKASTA FERRELL APRNNDA S 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 OR MAINTAINING SLEEP 12/05/2011 YOKASTA FERRELL APRNNDA S 719.45 PAIN IN JOINT INVOLVING PELVIC REGION AND THIGH 12/05/2011 NICK JARAMILLO, LUCI Pagan 719.45 PAIN IN JOINT INVOLVING PELVIC REGION AND THIGH 12/05/2011 719.45 PAIN IN JOINT INVOLVING PELVIC REGION AND THIGH 12/05/2011 719.45 PAIN IN JOINT INVOLVING PELVIC REGION AND THIGH 12/05/2011 719.45 PAIN IN JOINT INVOLVING PELVIC REGION AND THIGH 12/05/2011 719.45 PAIN IN JOINT INVOLVING PELVIC REGION AND THIGH 12/05/2011 719.45 PAIN IN JOINT INVOLVING PELVIC REGION AND THIGH 12/05/2011 MEÑO FERRELL APRNA S 719.45 PAIN IN JOINT INVOLVING PELVIC REGION AND THIGH 12/05/2011 YOKASTA FERRELL APRNNDA S 719.45 PAIN IN JOINT INVOLVING PELVIC REGION AND THIGH 12/05/2011 YOKASTA FERRELL APRNNDA S 719.45 PAIN IN JOINT INVOLVING PELVIC REGION AND THIGH 12/05/2011 MEÑO FERRELL APRNA S 719.45 PAIN IN JOINT INVOLVING PELVIC REGION AND THIGH 12/05/2011 VIOLETA KNIGHT APRN 719.45 PAIN IN JOINT INVOLVING PELVIC REGION AND THIGH 12/05/2011 JOSE LUIS ELLER MD 719.45 PAIN IN JOINT INVOLVING PELVIC REGION AND THIGH 12/05/2011 SIDNEY HORTA DO 719.45 PAIN IN JOINT INVOLVING PELVIC REGION AND THIGH 12/05/2011 JENNIFER FERRELL APRN S 719.45 PAIN IN JOINT INVOLVING PELVIC REGION AND THIGH 12/05/2011 VICKY HODGSON APRN 719.45 PAIN IN JOINT INVOLVING PELVIC REGION AND THIGH 12/05/2011 JENNIFER FERRELL APRN S 719.45 PAIN IN JOINT INVOLVING PELVIC REGION AND THIGH 12/05/2011 JENNIFER FERRELL APRN S 719.45 PAIN IN JOINT INVOLVING PELVIC REGION AND THIGH 12/05/2011 JENNIFER FERRELL APRN S 719.45 PAIN IN JOINT INVOLVING PELVIC REGION AND THIGH 01/31/2012 JENNIFER FERRELL APRN S 724.2 LUMBAGO 01/31/2012 JENNIFER FERRELL APRN S V04.81 FLU DX (3 YRS AND ABOVE, IM) 01/31/2012 NICK JARAMILLO, LUCI Pagan 724.2 LUMBAGO 01/31/2012 NICK JARAMILLO, LUCI Pagan V04.81 FLU DX (3 YRS AND ABOVE, IM) 01/31/2012 724.2 LUMBAGO 01/31/2012 V04.81 FLU DX (3 YRS AND ABOVE, IM) 01/31/2012 724.2 LUMBAGO 01/31/2012 V04.81 FLU DX (3 YRS AND ABOVE, IM) 01/31/2012 724.2 LUMBAGO 01/31/2012 V04.81 FLU DX (3 YRS AND ABOVE, IM) 01/31/2012 724.2 LUMBAGO 01/31/2012 V04.81 FLU DX (3 YRS AND ABOVE, IM) 01/31/2012 724.2 LUMBAGO 01/31/2012 V04.81 FLU DX (3 YRS AND ABOVE, IM) 01/31/2012 JENNIFER FERRELL APRN S 724.2 LUMBAGO 01/31/2012 MARIAELENA ION 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, JENNIFER S V04.81 FLU DX (3 YRS AND ABOVE, IM) 01/31/2012 MARIAELENA ION 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, JENNIFER S 724.2 LUMBAGO 01/31/2012 MARIAELENA ION 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, JENNIFER S V04.81 FLU DX (3 YRS AND ABOVE, IM) 01/31/2012 MARIAELENA ION 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, JENNIFER S 724.2 LUMBAGO 01/31/2012 MARIAELENA ION 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, JENNIFER S V04.81 FLU DX (3 YRS AND ABOVE, IM) 01/31/2012 MARIAELENA ION 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, JENNIFER S 724.2 LUMBAGO 01/31/2012 MARIAELENA ION 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, JENNIFER S V04.81 FLU DX (3 YRS AND ABOVE, IM) 01/31/2012 VIOLETA KNIGHT APRN 724.2 LUMBAGO 01/31/2012 VIOLETA KNIGHT APRN V04.81 FLU DX (3 YRS AND ABOVE, IM) 01/31/2012 JOSE LUIS ELLER MD 724.2 LUMBAGO 01/31/2012 JOSE LUIS ELLER MD V04.81 FLU DX (3 YRS AND ABOVE, IM) 01/31/2012 HORTA DO, SIDNEY K 724.2 LUMBAGO 01/31/2012 HORTA DO, SIDNEY K V04.81 FLU DX (3 YRS AND ABOVE, IM) 01/31/2012 MARIAELENA ION 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, JENNIFER S 724.2 LUMBAGO 01/31/2012 MARIAELENA ION 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, JENNIFER S V04.81 FLU DX (3 YRS AND ABOVE, IM) 01/31/2012 MADL ION 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, VICKY L 724.2 LUMBAGO 01/31/2012 MADL ION 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, VICKY L V04.81 FLU DX (3 YRS AND ABOVE, IM) 01/31/2012 MARIAELENA ION 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, JENNIFER S 724.2 LUMBAGO 01/31/2012 MARIAELENA ION 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, JENNIFER S V04.81 FLU DX (3 YRS AND ABOVE, IM) 01/31/2012 MARIAELENA ION 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, JENNIFER S 724.2 LUMBAGO 01/31/2012 MARIAELENA ION 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, JENNIFER S V04.81 FLU DX (3 YRS AND ABOVE, IM) 01/31/2012 MARIAELENA SOTO, JENNIFER S 724.2 LUMBAGO 01/31/2012 MARIAELENA SOTO JENNIFER S V04.81 FLU DX (3 YRS AND ABOVE, IM) 03/01/2012 MARIAELENA SOTO, JENNIFER S 578.1 HEMATOCHEZIA 03/01/2012 MARIAELENA SOTO, JENNIFER S 787.91 DIARRHEA 03/01/2012 NICK JARAMILLO, LUCI Pagan 578.1 HEMATOCHEZIA 03/01/2012 LUCI ROMERO MD 787.91 DIARRHEA 03/01/2012 578.1 HEMATOCHEZIA 03/01/2012 787.91 DIARRHEA 03/01/2012 578.1 HEMATOCHEZIA 03/01/2012 787.91 DIARRHEA 03/01/2012 578.1 HEMATOCHEZIA 03/01/2012 787.91 DIARRHEA 03/01/2012 578.1 HEMATOCHEZIA 03/01/2012 787.91 DIARRHEA 03/01/2012 578.1 HEMATOCHEZIA 03/01/2012 787.91 DIARRHEA 03/01/2012 MARIAELENA SOTO, JENNIFER S 578.1 HEMATOCHEZIA 03/01/2012 MARIAELENA SOTO, JENNIFER S 787.91 DIARRHEA 03/01/2012 MARIAELENA SOTO, JENNIFER S 578.1 HEMATOCHEZIA 03/01/2012 MARIAELENA SOTO, JENNIFER S 787.91 DIARRHEA 03/01/2012 MARIAELENA SOTO, JENNIFER S 578.1 HEMATOCHEZIA 03/01/2012 MARIAELENA SOTO, JENNIFER S 787.91 DIARRHEA 03/01/2012 MARIAELENA SOTO, JENNIFER S 578.1 HEMATOCHEZIA 03/01/2012 MARIAELENA SOTO, JENNIFER S 787.91 DIARRHEA 03/01/2012 VIOLETA KNIGHT APRN 578.1 HEMATOCHEZIA 03/01/2012 VIOLETA KNIGHT APRN 787.91 DIARRHEA 03/01/2012 JOSE LUIS ELLER MD 578.1 HEMATOCHEZIA 03/01/2012 JOSE LUIS ELLER MD 787.91 DIARRHEA 03/01/2012 HORTA DO, SIDNEY K 578.1 HEMATOCHEZIA 03/01/2012 HORTA DO, SIDNEY K 787.91 DIARRHEA 03/01/2012 MARIAELENA HUGHESN, JENNIFER S 578.1 HEMATOCHEZIA 03/01/2012 MARIAELENA ION 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, JENNIFER S 787.91 DIARRHEA 03/01/2012 MADL ION 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, VICKY L 578.1 HEMATOCHEZIA 03/01/2012 MADL ION 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, VICKY L 787.91 DIARRHEA 03/01/2012 MARIAELENA ION 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, JENNIFER S 578.1 HEMATOCHEZIA 03/01/2012 MARIAELENA ION 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, JENNIFER S 787.91 DIARRHEA 03/01/2012 MARIAELENA ION 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, JENNIFER S 578.1 HEMATOCHEZIA 03/01/2012 MARIAELENA ION 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, JENNIFER S 787.91 DIARRHEA 03/01/2012 MARIAELENA ION 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, JENNIFER S 578.1 HEMATOCHEZIA 03/01/2012 MARIAELENA SOTO, JENNIFER S 787.91 DIARRHEA 03/28/2012 YOKASTA FERRELL APRNNDA S 300.4 DYSTHYMIC DISORDER 03/28/2012 NICK JARAMILLO, LUCI Pagan 300.4 DYSTHYMIC DISORDER 03/28/2012 300.4 DYSTHYMIC DISORDER 03/28/2012 300.4 DYSTHYMIC DISORDER 03/28/2012 300.4 DYSTHYMIC DISORDER 03/28/2012 300.4 DYSTHYMIC DISORDER 03/28/2012 300.4 DYSTHYMIC DISORDER 03/28/2012 MARIAELENA SOTO JENNIFER S 300.4 DYSTHYMIC DISORDER 03/28/2012 MARIAELENA SOTO JENNIFER S 300.4 DYSTHYMIC DISORDER 03/28/2012 MARIAELENA SOTO JENNIFER S 300.4 DYSTHYMIC DISORDER 03/28/2012 MARIAELENA SOTO JENNIFER S 300.4 DYSTHYMIC DISORDER 03/28/2012 VIOLETA KNIGHT APRN 300.4 DYSTHYMIC DISORDER 03/28/2012 DAPHNIE JARAMILLO, JOSE LUIS 300.4 DYSTHYMIC DISORDER 03/28/2012 HORTA DO, SIDNEY K 300.4 DYSTHYMIC DISORDER 03/28/2012 YOKASTA FERRELL APRNNDA S 300.4 DYSTHYMIC DISORDER 03/28/2012 GOKUL ION 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, VICKY L 300.4 DYSTHYMIC DISORDER 03/28/2012 MARIAELENA ION 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, JENNIFER S 300.4 DYSTHYMIC DISORDER 03/28/2012 MARIAELENA ION 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, JENNIFER S 300.4 DYSTHYMIC DISORDER 03/28/2012 MARIAELENA ION 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, JENNIFER S 300.4 DYSTHYMIC DISORDER 08/16/2012 726.90 TENDONITIS 08/16/2012 726.90 TENDONITIS 08/16/2012 726.90 TENDONITIS 08/16/2012 726.90 TENDONITIS 08/16/2012 MARIAELENA ION 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, JENNIFER S 726.90 TENDONITIS 08/16/2012 MARIAELENA ION 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, JENNIFER S 726.90 TENDONITIS 08/16/2012 MARIAELENA ION 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, JENNIFER S 726.90 TENDONITIS 08/16/2012 YOKASTA FERRELL APRNNDA S 726.90 TENDONITIS 08/16/2012 VIOLETA KNIGHT APRN 726.90 TENDONITIS 08/16/2012 JOSE LUIS ELLER MD 726.90 TENDONITIS 08/16/2012 SIDNEY HORTA DO 726.90 TENDONITIS 08/16/2012 MARIAELENA HUGHESN, JENNIFER S 726.90 TENDONITIS 08/16/2012 GOKUL ION 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VICKY L 726.90 TENDONITIS 08/16/2012 MARIAELENA SOTO, JENNIFER S 726.90 TENDONITIS 08/16/2012 MARIAELENA SOTO JENNIFER S 726.90 TENDONITIS 10/25/2012 959.09 OTHER AND UNSPECIFIED INJURY TO FACE AND NECK 10/25/2012 959.09 OTHER AND UNSPECIFIED INJURY TO FACE AND NECK 10/25/2012 YOKASTA FERRELL APRNNDA S 959.09 OTHER AND UNSPECIFIED INJURY TO FACE AND NECK 10/25/2012 YOKASTA FERRELL APRNNDA S 959.09 OTHER AND UNSPECIFIED INJURY TO FACE AND NECK 10/25/2012 MARIAELENA SOTO JENNIFER S 959.09 OTHER AND UNSPECIFIED INJURY TO FACE AND NECK 10/25/2012 YOKASTA FERRELL APRNNDA S 959.09 OTHER AND UNSPECIFIED INJURY TO FACE AND NECK 10/25/2012 VIOLETA KNIGHT APRN 959.09 OTHER AND UNSPECIFIED INJURY TO FACE AND NECK 10/25/2012 JOSE LUIS ELLER MD 959.09 OTHER AND UNSPECIFIED INJURY TO FACE AND NECK 10/25/2012 SIDNEY HORTA DO K 959.09 OTHER AND UNSPECIFIED INJURY TO FACE AND NECK 10/25/2012 MARIAELENA ION 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, JENNIFER S 959.09 OTHER AND UNSPECIFIED INJURY TO FACE AND NECK 10/25/2012 MADL ION 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, VICKY L 959.09 OTHER AND UNSPECIFIED INJURY TO FACE AND NECK 10/25/2012 MARIAELENA ION 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, JENNIFER S 959.09 OTHER AND UNSPECIFIED INJURY TO FACE AND NECK 10/25/2012 MARIAELENA ION 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, JENNIFER S 959.09 OTHER AND UNSPECIFIED INJURY TO FACE AND NECK 02/27/2013 MARIAELENA ION 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, JENNIFER S 530.81 GERD 02/27/2013 MARIAELENA ION 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, JENNIFER S 530.81 GERD 02/27/2013 MARIAELENA ION 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, JENNIFER S 530.81 GERD 02/27/2013 VIOLETA KNIGHT APRN 530.81 GERD 02/27/2013 JOSE LUIS ELLER MD 530.81 GERD 02/27/2013 SIDNEY HORTA DO K 530.81 GERD 02/27/2013 MARIAELENA ION 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, JENNIFER S 530.81 GERD 02/27/2013 GOKUL ION 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, VICKY L 530.81 GERD 02/27/2013 MARIAELENA ION 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, JENNIFER S 530.81 GERD 02/27/2013 MARIAELENA ION 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, JENNIFER S 530.81 GERD 05/09/2013 MARIAELENA ION 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, JENNIFER S 462 PHARYNGITIS ACUTE 05/09/2013 MARIAELENA HUGHESN, JENNIFER S 462 PHARYNGITIS ACUTE 05/09/2013 VIOLETA KNIGHT APRN 462 PHARYNGITIS ACUTE 05/09/2013 JOSE LUIS ELLER MD 462 PHARYNGITIS ACUTE 05/09/2013 SIDNEY HORTA DO 462 PHARYNGITIS ACUTE 05/09/2013 MARIAELENA ION 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, JENNIFER S 462 PHARYNGITIS ACUTE 05/09/2013 MADL ION 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, VICKY L 462 PHARYNGITIS ACUTE 05/09/2013 MARIAELENA ION 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, JENNIFER S 462 PHARYNGITIS ACUTE 05/09/2013 MARIAELENA ION 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, JENNIFER S 462 PHARYNGITIS ACUTE 06/24/2013 MARIAELENA SOTO, JENNIFER S 788.42 POLYURIA 06/24/2013 MARIAELENA SOTO, JENNIFER S 882.0 OPEN WOUND OF HAND EXCEPT FINGERS ALONE WITHOUT COMPLICATION 06/24/2013 VIOLETA KNIGHT APRN 788.42 POLYURIA 06/24/2013 VIOLETA KNIGHT APRN 882.0 OPEN WOUND OF HAND EXCEPT FINGERS ALONE WITHOUT COMPLICATION 06/24/2013 JOSE LUIS ELLER MD 788.42 POLYURIA 06/24/2013 JOSE LUIS ELLER MD 882.0 OPEN WOUND OF HAND EXCEPT FINGERS ALONE WITHOUT COMPLICATION 06/24/2013 HORTA DO, SIDNEY K 788.42 POLYURIA 06/24/2013 HORTA DO, SIDNEY K 882.0 OPEN WOUND OF HAND EXCEPT FINGERS ALONE WITHOUT COMPLICATION 06/24/2013 MARIAELENA SOTO, JENNIFER S 788.42 POLYURIA 06/24/2013 MARIAELENA SOTO, JENNIFER S 882.0 OPEN WOUND OF HAND EXCEPT FINGERS ALONE WITHOUT COMPLICATION 06/24/2013 MADL ION 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, VICKY L 788.42 POLYURIA 06/24/2013 MADL ION 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, VICKY L 882.0 OPEN WOUND OF HAND EXCEPT FINGERS ALONE WITHOUT COMPLICATION 06/24/2013 MARIAELENA SOTO, JENNIFER S 788.42 POLYURIA 06/24/2013 MARIAELENA SOTO, JENNIFER S 882.0 OPEN WOUND OF HAND EXCEPT FINGERS ALONE WITHOUT COMPLICATION 06/24/2013 MARIAELENA ION 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, JENNIFER S 788.42 POLYURIA 06/24/2013 AMRIAELENA SOTO, JENNIFER S 882.0 OPEN WOUND OF HAND EXCEPT FINGERS ALONE WITHOUT COMPLICATION 08/12/2013 VIOLETA KNIGHT APRN 493.92 ASTHMA (ACUTE) EXACERBATION 08/12/2013 VIOLETA KNIGHT APRN 601.9 PROSTATITIS UNSPECIFIED 08/12/2013 JOSE LUIS ELLER MD 493.92 ASTHMA (ACUTE) EXACERBATION 08/12/2013 JOSE LUIS ELLER MD 601.9 PROSTATITIS UNSPECIFIED 08/12/2013 HORTA DO, SIDNEY K 493.92 ASTHMA (ACUTE) EXACERBATION 08/12/2013 HORTA DO, SIDNEY K 601.9 PROSTATITIS UNSPECIFIED 08/12/2013 MARIAELENA ION 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, JENNIFER S 493.92 ASTHMA (ACUTE) EXACERBATION 08/12/2013 MARIAELENA ION 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, JENNIFER S 601.9 PROSTATITIS UNSPECIFIED 08/12/2013 MADL ION 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, VICKY L 493.92 ASTHMA (ACUTE) EXACERBATION 08/12/2013 MADL ION 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, VICKY L 601.9 PROSTATITIS UNSPECIFIED 08/12/2013 MARIAELENA ION 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, JENNIFER S 493.92 ASTHMA (ACUTE) EXACERBATION 08/12/2013 MARIAELENA ION 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, JENNIFER S 601.9 PROSTATITIS UNSPECIFIED 08/12/2013 MARIAELENA ION 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, JENNIFER S 493.92 ASTHMA (ACUTE) EXACERBATION 08/12/2013 MARIAELENA ION 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, JENNIFER S 601.9 PROSTATITIS UNSPECIFIED 09/04/2013 JOSE LUIS ELLER MD 278.00 OBESITY 09/04/2013 JOSE LUIS ELLER MD 780.52 INSOMNIA UNSPECIFIED 09/04/2013 HORTA DO, SIDNEY K 278.00 OBESITY 09/04/2013 HORTA DO, SIDNEY K 780.52 INSOMNIA UNSPECIFIED 09/04/2013 MARIAELENA ION 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, JENNIFER S 278.00 OBESITY 09/04/2013 MARIAELENA ION 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, JENNIFER S 780.52 INSOMNIA UNSPECIFIED 09/04/2013 MADL ION 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, VICKY L 278.00 OBESITY 09/04/2013 MADL ION 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, VICKY L 780.52 INSOMNIA UNSPECIFIED 09/04/2013 MARIAELENA ION 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, JENNIFER S 278.00 OBESITY 09/04/2013 MARIAELENA ION 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, JENNIFER S 780.52 INSOMNIA UNSPECIFIED 09/04/2013 MARIAELENA ION 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, JENNIFER S 278.00 OBESITY 09/04/2013 MARIAELENA ION 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, JENNIFER S 780.52 INSOMNIA UNSPECIFIED 11/11/2013 MARIAELENA ION 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, JENNIFER S 564.00 CONSTIPATION 11/11/2013 MARIAELENA ION 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, JENNIFER S 799.02 HYPOXEMIA 11/11/2013 MADL ION 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, VICKY L 564.00 CONSTIPATION 11/11/2013 MADKristian SOTO, VICKY L 799.02 HYPOXEMIA 11/11/2013 MARIAELENA YOKASTA SOTONDA S 564.00 CONSTIPATION 11/11/2013 MARIAELENA YOKASTA SOTONDA S 799.02 HYPOXEMIA 11/11/2013 MARIAELENA ION 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YOKASTAJENNIFER S 564.00 CONSTIPATION 11/11/2013 MARIAELENA ION 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YOKASTAJENNIFER S 799.02 HYPOXEMIA 11/14/2013 RUSSELL MCKENNA AS400 CONSULTANT Ot 715.36 LOC OSTEOARTH NOS-L/LEG 11/14/2013 RUSSELL MCKENNA AS400 CONSULTANT Ot 722.52 LUMB/LUMBOSAC DISC DEGEN 11/14/2013 RUSSELL MCKENNA AS400 CONSULTANT Ot V57.1 PHYSICAL THERAPY NEC 01/07/2014 VICKY HODGSON APRN L 462 ACUTE PHARYNGITIS 01/07/2014 MARIAELENA ION 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YOKASTAJENNIFER S 462 ACUTE PHARYNGITIS 01/07/2014 MARIAELENA ION 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, JENNIFER S 462 ACUTE PHARYNGITIS 03/13/2014 MARIAELENA ION 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YOKASTAJENNIFER S V03.82 PPV23 (PNEUMOVAX) DX 03/13/2014 MARIAELENA ION 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, JENNIFER S V04.81 FLU SHOT 03/13/2014 MARIAELENA ION 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, JENNIFER S V03.82 PPV23 (PNEUMOVAX) DX 03/13/2014 MARIAELENA ION 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YOKASTAJENNIFER S V04.81 FLU SHOT 08/18/2014 MARIAELENA ION 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, JENNIFER S 110.1 ONYCHOMYCOSIS 08/24/2016 JENNIFER FERRELLP Ot Z12.2 ENCNTR SCREEN FOR MALIGNANT NEOPLASM OF 08/24/2016 JENNIFER FERRELL AS400 CONSULTANT Ot Z12.2 ENCNTR SCREEN FOR MALIGNANT NEOPLASM OF 08/25/2016 JENNIFER FERRELLP Ot Z12.2 ENCNTR SCREEN FOR MALIGNANT NEOPLASM OF 08/25/2016 JENNIFER FERRELLP Ot F17.210 NICOTINE DEPENDENCE, CIGARETTES, UNCOMPL 08/25/2016 JENNIFER FERRELL AS400 CONSULTANT Ot Z12.2 ENCNTR SCREEN FOR MALIGNANT NEOPLASM OF 09/14/2016 JENNIFER FERRELL Ot F17.210 NICOTINE DEPENDENCE, CIGARETTES, UNCOMPL 09/14/2016 JENNIFER FERRELL Ot Z12.2 ENCNTR SCREEN FOR MALIGNANT NEOPLASM OF 01/04/2017 SADE JARAMILLO, KATE Reese Ot M75.111 INCOMPLETE ROTATR-CUFF TEAR/RUPTR OF R S 01/23/2017 SCARLET WHITFIELD ION 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 Ot G47.30 SLEEP APNEA, UNSPECIFIED 01/23/2017 SCARLET WHITFIELD APRN Ot G47.30 SLEEP APNEA, UNSPECIFIED 01/24/2017 SCARLET WHITFIELD APRN Ot G47.30 SLEEP APNEA, UNSPECIFIED 01/24/2017 SCARLET WHITFIELD APRN Ot G47.33 OBSTRUCTIVE SLEEP APNEA (ADULT) (PEDIATR 01/24/2017 SCARLET WHITFIELD ION 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 Ot I10 ESSENTIAL (PRIMARY) HYPERTENSION 01/25/2017 ISIAH DAUGHERTY MD Ot V58.69 OTH MED,LT,CURRENT USE 01/25/2017 ISIAH DAUGHERTY MD Ot V58.83 ENCOUNTER FOR THERAPEUTIC DRUG MONITORIN 01/25/2017 JENNIFER FERRELL Ot F17.210 NICOTINE DEPENDENCE, CIGARETTES, UNCOMPL 01/25/2017 JENNIFER FERRELL Ot Z12.2 ENCNTR SCREEN FOR MALIGNANT NEOPLASM OF 01/25/2017 SADE JARAMILLO, KATE Reese Ot M75.111 INCOMPLETE ROTATR-CUFF TEAR/RUPTR OF R S 02/01/2017 SCARLET WHITFIELD ION 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 Ot E66.01 MORBID (SEVERE) OBESITY DUE TO EXCESS CA 02/01/2017 SCARLET WHITFIELD ION 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 Ot J42 UNSPECIFIED CHRONIC BRONCHITIS 02/01/2017 SCARLET WHITFEILD ION 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 Ot J45.909 UNSPECIFIED ASTHMA, UNCOMPLICATED 02/01/2017 SCARLET WHITFIELD APRN Ot R06.02 SHORTNESS OF BREATH 02/01/2017 SCARLET WHITFIELD APRN Ot R09.02 HYPOXEMIA 02/01/2017 SCARLET WHITFIELD ION 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 Ot Z72.0 TOBACCO USE 03/07/2017 W 401.9 UNSPECIFIED ESSENTIAL HYPERTENSION 03/07/2017 W 493 ASTHMA 03/07/2017 A 496 CHRONIC AIRWAY OBSTRUCTION, NOT ELSEWHERE CLASSIFIED 03/07/2017 W I10 ESSENTIAL ( PRIMARY) HYPERTENSION 03/07/2017 A J44.9 CHRONIC OBSTRUCTIVE PULMONARY DISEASE, UNSPECIFIED 03/07/2017 W J45.909 UNSPECIFIED ASTHMA, UNCOMPLICATED 03/15/2017 SCARLET WHITFIELD APRN, Ot E66.01 MORBID (SEVERE) OBESITY DUE TO EXCESS CA 03/15/2017 SCARLET WHITFIELD APRN Ot J42 UNSPECIFIED CHRONIC BRONCHITIS 03/15/2017 SCARLET WHITFIELD APRN, Ot J45.909 UNSPECIFIED ASTHMA, UNCOMPLICATED 03/15/2017 SCARLET WHITFIELD APRN Ot R06.02 SHORTNESS OF BREATH 03/15/2017 SCARLET WHITFIELD APRN Ot R09.02 HYPOXEMIA 03/15/2017 SCARLET WHITFIELD APRN, Ot Z72.0 TOBACCO USE 03/22/2017 KATE STUART 726.13 PARTIAL TEAR OF ROTATOR CUFF 03/22/2017 KATE STUART M75.111 INCOMPLETE ROTATR-CUFF TEAR/RUPTR OF R SHOULDER, NOT TRAUMA 03/22/2017 KATE STUART MD, Ot E66.01 MORBID (SEVERE) OBESITY DUE TO EXCESS CA 03/22/2017 KATE STUART MD, Ot G47.33 OBSTRUCTIVE SLEEP APNEA (ADULT) (PEDIATR 03/22/2017 KATE STUART MD, Ot I10 ESSENTIAL (PRIMARY) HYPERTENSION 03/22/2017 KATE STUART MD, Ot J44.9 CHRONIC OBSTRUCTIVE PULMONARY DISEASE, U 03/22/2017 KATE STUART MD, Ot M75.41 IMPINGEMENT SYNDROME OF RIGHT SHOULDER 03/22/2017 KATE STUART MD, Ot S43.431A SUPERIOR GLENOID LABRUM LESION OF RIGHT 03/22/2017 KATE STUART MD, Ot Z68.43 BODY MASS INDEX (BMI) 50-59.9 , ADULT 03/22/2017 KATE STUART MD, Ot Z79.899 OTHER COUNTER STACKER (CURRENT) DRUG THERAPY 03/22/2017 KATE STUART MD, Ot Z82.49 FAMILY HX OF ISCHEM HEART DIS AND OTH DI 03/22/2017 KATE STUART MD, Ot Z96.643 PRESENCE OF ARTIFICIAL HIP JOINT, BILATE 03/23/2017 KATE STUART MD, Ot E66.01 MORBID (SEVERE) OBESITY DUE TO EXCESS CA 03/23/2017 KATE STUART MD, Ot G47.33 OBSTRUCTIVE SLEEP APNEA (ADULT) (PEDIATR 03/23/2017 KATE STUART MD, Ot I10 ESSENTIAL (PRIMARY) HYPERTENSION 03/23/2017 KATE STUART MD, Ot J44.9 CHRONIC OBSTRUCTIVE PULMONARY DISEASE, U 03/23/2017 KATE STUART MD, Ot M75.41 IMPINGEMENT SYNDROME OF RIGHT SHOULDER 03/23/2017 KATE STUART MD, Ot S43.431A SUPERIOR GLENOID LABRUM LESION OF RIGHT 03/23/2017 KATE STUART MD, Ot Z68.43 BODY MASS INDEX (BMI) 50-59.9 , ADULT 03/23/2017 KATE STUART MD, Ot Z79.899 OTHER SENIOR LIVING (CURRENT) DRUG THERAPY 03/23/2017 KATE STUART MD, Ot Z82.49 FAMILY HX OF ISCHEM HEART DIS AND OTH DI 03/23/2017 KATE STUART MD, Ot Z96.643 PRESENCE OF ARTIFICIAL HIP JOINT, BILATE 03/24/2017 KATE STUART MD, Ot E66.01 MORBID (SEVERE) OBESITY DUE TO EXCESS CA 03/24/2017 KATE STUART MD, Ot G47.33 OBSTRUCTIVE SLEEP APNEA (ADULT) (PEDIATR 03/24/2017 KATE STUART MD, Ot I10 ESSENTIAL (PRIMARY) HYPERTENSION 03/24/2017 KATE STUART MD, Ot J44.9 CHRONIC OBSTRUCTIVE PULMONARY DISEASE, U 03/24/2017 KATE STUART MD, Ot M75.41 IMPINGEMENT SYNDROME OF RIGHT SHOULDER 03/24/2017 KATE STUART MD, Ot S43.431A SUPERIOR GLENOID LABRUM LESION OF RIGHT 03/24/2017 KATE STUART MD, Ot Z68.43 BODY MASS INDEX (BMI) 50-59.9 , ADULT 03/24/2017 KATE STUART MD, Ot Z79.899 OTHER COUNTER STACKER (CURRENT) DRUG THERAPY 03/24/2017 KATE STUART MD, Ot Z82.49 FAMILY HX OF ISCHEM HEART DIS AND OTH DI 03/24/2017 KATE STUART MD Ot Z96.643 PRESENCE OF ARTIFICIAL HIP JOINT, BILATE 03/26/2017 KATE STUART MD Ot S43.491A OTHER SPRAIN OF RIGHT SHOULDER JOINT, IN 03/26/2017 KATE STUART MD, Ot X58.XXXA EXPOSURE TO OTHER SPECIFIED FACTORS, INI 03/26/2017 KATE STUART MD, Ot Y99.8 OTHER EXTERNAL CAUSE STATUS 03/26/2017 KATE STUART MD, Ot Z01.818 ENCOUNTER FOR OTHER PREPROCEDURAL EXAMIN 04/26/2017 Andrew Soto A 491.20 OBSTRUCTIVE CHRONIC BRONCHITIS, WITHOUT EXACERBATION 04/26/2017 Andrew Soto A J44.9 CHRONIC OBSTRUCTIVE PULMONARY DISEASE, UNSPECIFIED 10/24/2017 KATE STUART MD, Ot Z01.818 ENCOUNTER FOR OTHER PREPROCEDURAL EXAMIN 11/01/2017 KATE STUART MD, Ot I10 ESSENTIAL (PRIMARY) HYPERTENSION 11/01/2017 KATE STUART MD, Ot J44.9 CHRONIC OBSTRUCTIVE PULMONARY DISEASE, U 11/01/2017 KATE STUART MD Ot M22.41 CHONDROMALACIA PATELLAE, RIGHT KNEE 11/01/2017 KATE STUART MD Ot M23.8X1 OTHER INTERNAL DERANGEMENTS OF RIGHT KNE 11/01/2017 KATE STUART MD Ot Z79.899 OTHER COUNTER STACKER (CURRENT) DRUG THERAPY 11/01/2017 KATE STUART MD Ot Z96.643 PRESENCE OF ARTIFICIAL HIP JOINT, BILATE 11/02/2017 KATE STUART MD Ot I10 ESSENTIAL (PRIMARY) HYPERTENSION 11/02/2017 KATE STUART MD, Ot J44.9 CHRONIC OBSTRUCTIVE PULMONARY DISEASE, U 11/02/2017 KATE STUART MD Ot M22.41 CHONDROMALACIA PATELLAE, RIGHT KNEE 11/02/2017 KATE STUART MD Ot M23.8X1 OTHER INTERNAL DERANGEMENTS OF RIGHT KNE 11/02/2017 KATE STUART MD Ot Z79.899 OTHER SENIOR LIVING (CURRENT) DRUG THERAPY 11/02/2017 KATE STUART MD Ot Z96.643 PRESENCE OF ARTIFICIAL HIP JOINT, BILATE 03/24/2018 DARSHAN ATKINSON MD Ot D64.9 ANEMIA, UNSPECIFIED 03/24/2018 DARSHAN ATKINSON MD Ot D69.6 THROMBOCYTOPENIA, UNSPECIFIED 03/24/2018 DARSHAN ATKINSON MD Ot E27.9 DISORDER OF ADRENAL GLAND, UNSPECIFIED 03/24/2018 DARSHAN ATKINSON MD Ot E87.1 HYPO-OSMOLALITY AND HYPONATREMIA 03/24/2018 DARSHAN ATKINSON MD Ot F41.9 ANXIETY DISORDER, UNSPECIFIED 03/24/2018 DARSHAN ATKINSON MD Ot F51.01 PRIMARY INSOMNIA 03/24/2018 DARSHAN ATKINSON MD Ot G47.30 SLEEP APNEA, UNSPECIFIED 03/24/2018 DARSHAN ATKINSON MD Ot I10 ESSENTIAL (PRIMARY) HYPERTENSION 03/24/2018 DARSHAN ATKINSON MD Ot J44.1 CHRONIC OBSTRUCTIVE PULMONARY DISEASE W 03/24/2018 DARSHAN ATKINSON MD, Ot J90 PLEURAL EFFUSION, NOT ELSEWHERE CLASSIFI 03/24/2018 DARSHAN ATKINSON MD Ot K85.90 ACUTE PANCREATITIS WITHOUT NECROSIS OR I 03/24/2018 DARSHAN ATKINSON MD Ot M19.91 PRIMARY OSTEOARTHRITIS, UNSPECIFIED SITE 03/24/2018 DARSHAN ATKINSON MD Ot M54.5 LOW BACK PAIN 03/24/2018 DARSHAN ATKINSON MD Ot R63.4 ABNORMAL WEIGHT LOSS 03/24/2018 DARSHAN ATKINSON MD Ot Z87.891 PERSONAL HISTORY OF NICOTINE DEPENDENCE 03/24/2018 DARSHAN ATKINSON MD Ot Z90.49 ACQUIRED ABSENCE OF OTHER SPECIFIED PART 03/24/2018 DARSHAN ATKINSON MD Ot Z96.643 PRESENCE OF ARTIFICIAL HIP JOINT, BILATE 03/24/2018 DARSHAN ATKINSON MD Ot Z98.84 BARIATRIC SURGERY STATUS 03/27/2018 DARSHAN ATKINSON MD Ot D64.9 ANEMIA, UNSPECIFIED 03/27/2018 DARSHAN ATKINSON MD Ot D69.6 THROMBOCYTOPENIA, UNSPECIFIED 03/27/2018 DARSHAN ATKINSON MD Ot E27.9 DISORDER OF ADRENAL GLAND, UNSPECIFIED 03/27/2018 DARSHAN ATKINSON MD Ot E87.1 HYPO-OSMOLALITY AND HYPONATREMIA 03/27/2018 DARSHAN ATKINSON MD Ot F41.9 ANXIETY DISORDER, UNSPECIFIED 03/27/2018 DARSHAN ATKINSON MD Ot F51.01 PRIMARY INSOMNIA 03/27/2018 DARSHAN ATKINSON MD Ot G47.30 SLEEP APNEA, UNSPECIFIED 03/27/2018 DARSHAN ATKINSON MD Ot I10 ESSENTIAL (PRIMARY) HYPERTENSION 03/27/2018 DARSHAN ATKINSON MD, Ot J44.1 CHRONIC OBSTRUCTIVE PULMONARY DISEASE W 03/27/2018 DRASHAN ATKINSON MD, Ot J90 PLEURAL EFFUSION, NOT ELSEWHERE CLASSIFI 03/27/2018 DARSHAN ATKINSON MD Ot K85.90 ACUTE PANCREATITIS WITHOUT NECROSIS OR I 03/27/2018 DARSHAN ATKINSON MD Ot M19.91 PRIMARY OSTEOARTHRITIS, UNSPECIFIED SITE 03/27/2018 DARSHAN ATKINSON MD, Ot M54.5 LOW BACK PAIN 03/27/2018 DARSHAN ATKINSON MD Ot R63.4 ABNORMAL WEIGHT LOSS 03/27/2018 DARSHAN ATKINSON MD, Ot Z87.891 PERSONAL HISTORY OF NICOTINE DEPENDENCE 03/27/2018 DARSHAN ATKINSON MD Ot Z90.49 ACQUIRED ABSENCE OF OTHER SPECIFIED PART 03/27/2018 DARSHAN ATKINSON MD, Ot Z96.643 PRESENCE OF ARTIFICIAL HIP JOINT, BILATE 03/27/2018 DARSHAN ATKINSON MD Ot Z98.84 BARIATRIC SURGERY STATUS Procedures Code [place] [address] ROUTINE VENIPUNCTURE 10/12/2012 06802 CBC 10/12/2012 92177 LIPID PANEL 10/12/2012 66136 CMP 10/12/2012 1355869 GFR CALC (RESULT ONLY) 10/12/2012 59760 PSA TOTAL 10/12/2012 G0008 FLU ADMINISTRATION ( MEDICARE ONLY) 02/27/2013 91552 UA LONG DIP 06/24/2013 75172 JOINT INJECTION- LARGE JOINT (SPECIFY MEDCIN DESCRIPTION) 10/10/2013 55464 ROUTINE VENIPUNCTURE 11/11/2013 60603 CBC 11/11/2013 [id number] GFR CALC (RESULT ONLY) 11/11/2013 30176 CMP 11/11/2013 63346 LIPID PANEL 11/11/2013 41779 TSH 11/11/2013 G0008 FLU ADMINISTRATION ( MEDICARE ONLY) 03/13/2014 06557 [employer] 03/19/2014 47329 ROUTINE VENIPUNCTURE 08/18/2014 73353 [employer] 08/18/2014 [id number] GFR CALC (RESULT ONLY) 08/18/2014 96431 BMP 08/18/2014 Results Test Result Range Comp. Metabolic Panel (14) - 08/17/16 08:38 Glucose, Serum 101 mg/dL 65-99 BUN 20 mg/dL 8-27 Creatinine, Serum 1.00 mg/dL 0.76-1.27 eGFR If NonAfricn Am 78 mL/min/1.73 >59 eGFR If Africn Am 90 mL/min/1.73 >59 BUN/Creatinine Ratio 20 10-24 Sodium, Serum 142 mmol/L 134-144 Potassium, Serum 4.9 mmol/L 3.5-5.2 Chloride, Serum 101 mmol/L 96-106 Carbon Dioxide, Total 24 mmol/L 18-29 Calcium, Serum 9.1 mg/dL 8.6-10.2 Protein, Total, Serum 6.3 g/dL 6.0-8.5 Albumin, Serum 4.0 g/dL 3.6-4.8 Globulin, Total 2.3 g/dL 1.5-4.5 A/G Ratio 1.7 1.2-2.2 Bilirubin, Total 0.5 mg/dL 0.0-1.2 Alkaline Phosphatase, S 77 IU/L 39-117 AST (SGOT) 14 IU/L 0-40 ALT (SGPT) 11 IU/L 0-44 Lipid Panel - 08/17/16 08:38 Cholesterol, Total 183 mg/dL 100-199 Triglycerides 55 mg/dL 0-149 HDL Cholesterol 66 mg/dL >39 VLDL Cholesterol Jimi 11 mg/dL 5-40 LDL Cholesterol Calc 106 mg/dL 0-99 PSA Total+% Free - 08/17/16 08:38 Prostate Specific Ag, Serum 1.4 ng/mL 0.0-4.0 PSA, Free 0.25 ng/mL N/A % Free PSA 17.9 % Methicillin resistant Staphylococcus aureus (MRSA) screening culture - 12:00 Methicillin resistant Staphylococcus aureus (MRSA) screening culture NEG NRG CMP - 08/16/17 17:00 GLUCOSE 112 mg/dL 65-99 UREA NITROGEN (BUN) 21 mg/dL 7-25 CREATININE 1.16 mg/dL 0.70-1.25 eGFR NON-AFR. CZECH 65 mL/min/1.73m2 > OR=60 eGFR 75 mL/min/1.73m2 > OR=60 BUN/CREATININE RATIO NOT APPLICABLE (calc) 6-22 SODIUM 143 mmol/L 135-146 POTASSIUM 4.4 mmol/L 3.5-5.3 CHLORIDE 106 mmol/L 98-110 CARBON DIOXIDE 27 mmol/L 20-31 CALCIUM 8.8 mg/dL 8.6-10.3 PROTEIN, TOTAL 5.8 g/dL 6.1-8.1 ALBUMIN 3.4 g/dL 3.6-5.1 GLOBULIN 2.4 g/dL (calc) 1.9-3.7 ALBUMIN/GLOBULIN RATIO 1.4 (calc) 1.0-2.5 BILIRUBIN, TOTAL 0.5 mg/dL 0.2-1.2 ALKALINE PHOSPHATASE 66 U/L 40-115 AST 19 U/L 10-35 ALT 21 U/L 9-46 CBC - 08/16/17 17:00 WHITE BLOOD CELL COUNT 13.7 Thousand/uL 3.8-10.8 RED BLOOD CELL COUNT 4.65 Million/uL 4.20-5.80 HEMOGLOBIN 13.8 g/dL 13.2-17.1 HEMATOCRIT 40.2 % 38.5-50.0 MCV 86.5 fL 80.0-100.0 MCH 29.7 pg 27.0-33.0 MCHC 34.3 g/dL 32.0-36.0 RDW 14.0 % 11.0-15.0 PLATELET COUNT 152 Thousand/uL 140-400 MPV 11.5 fL 7.5-12.5 ABSOLUTE NEUTROPHILS 55114 cells/uL 8018-0450 ABSOLUTE LYMPHOCYTES 918 cells/uL 850-3900 ABSOLUTE MONOCYTES 658 cells/uL 200-950 ABSOLUTE EOSINOPHILS 14 cells/uL 15-500 ABSOLUTE BASOPHILS 55 cells/uL 0-200 NEUTROPHILS 88 % NRG LYMPHOCYTES 6.7 % NRG MONOCYTES 4.8 % NRG EOSINOPHILS 0.1 % NRG BASOPHILS 0.4 % NRG COMMENT(S) NRG Methicillin resistant Staphylococcus aureus (MRSA) screening culture - 12:04 MRSA SCREEN RESULT MRSA ISOLATED NRG Complete blood count (CBC) with automated white blood cell (WBC) differential - 03/20/18 11:45 Blood leukocytes automated count (number/volume) 20.6 10*3/uL 4.3-11.0 Blood erythrocytes automated count (number/volume) 4.10 10*6/uL 4.35-5.85 Venous blood hemoglobin measurement (mass/volume) 12.6 g/dL 13.3-17.7 Blood hematocrit (volume fraction) 36 % 40-54 Automated erythrocyte mean corpuscular volume 89 [foz_us] 80-99 Automated erythrocyte mean corpuscular hemoglobin (mass per erythrocyte) 31 pg 25-34 Automated erythrocyte mean corpuscular hemoglobin concentration measurement ( mass/volume) 35 g/dL 32-36 Automated erythrocyte distribution width ratio 16.6 % 10.0-14.5 Automated blood platelet count (count/volume) 118 10*3/uL 130-400 Automated blood platelet mean volume measurement 12.3 [foz_us] 7.4-10.4 Automated blood neutrophils/100 leukocytes 88 % 42-75 Automated blood lymphocytes/100 leukocytes 4 % 12-44 Blood monocytes/100 leukocytes 8 % 0-12 Automated blood eosinophils/100 leukocytes 0 % 0-10 Automated blood basophils/100 leukocytes 0 % 0-10 Blood neutrophils automated count (number/volume) 18.0 10*3 1.8-7.8 Blood lymphocytes automated count (number/volume) 0.8 10*3 1.0-4.0 Blood monocytes automated count (number/volume) 1.6 10*3 0.0-1.0 Automated eosinophil count 0.0 10*3/uL 0.0-0.3 Automated blood basophil count (count/volume) 0.1 10*3/uL 0.0-0.1 Blood lactic acid measurement (moles/volume) - 03/20/18 11:45 Blood lactic acid measurement (moles/volume) 1.23 mmol/L 0.50-2.00 PT panel in platelet poor plasma by coagulation assay - 03/20/18 11:45 Prothrombin time (PT) in platelet poor plasma by coagulation assay 14.5 s 12.2-14.7 INR in platelet poor plasma or blood by coagulation assay 1.1 0.8-1.4 Activated partial thromboplastin time (aPTT) in platelet poor plasma bycoagulation assay - 03/20/18 11:45 Activated partial thromboplastin time (aPTT) in platelet poor plasma bycoagulation assay 30 s 24-35 Comprehensive metabolic panel - 03/20/18 11:45 Serum or plasma sodium measurement (moles/volume) 139 mmol/L 135-145 Serum or plasma potassium measurement (moles/volume) 3.6 mmol/L 3.6-5.0 Serum or plasma chloride measurement (moles/volume) 107 mmol/L 98-107 Carbon dioxide 22 mmol/L 21-32 Serum or plasma anion gap determination (moles/volume) 10 mmol/L 5-14 Serum or plasma urea nitrogen measurement (mass/volume) 18 mg/dL 7-18 Serum or plasma creatinine measurement (mass/volume) 1.05 mg/dL 0.60-1.30 Serum or plasma urea nitrogen/creatinine mass ratio 17 NRG Serum or plasma creatinine measurement with calculation of estimated glomerular filtration rate > NRG Serum or plasma glucose measurement (mass/volume) 174 mg/dL 70-105 Serum or plasma calcium measurement (mass/volume) 8.9 mg/dL 8.5-10.1 Serum or plasma total bilirubin measurement (mass/volume) 1.3 mg/dL 0.1-1.0 Serum or plasma alkaline phosphatase measurement (enzymatic activity/volume) 104 U/L 40-136 Serum or plasma aspartate aminotransferase measurement (enzymatic activity/ volume) 28 U/L 5-34 Serum or plasma alanine aminotransferase measurement (enzymatic activity/volume ) 43 U/L 0-55 Serum or plasma protein measurement (mass/volume) 5.7 g/dL 6.4-8.2 Serum or plasma albumin measurement (mass/volume) 3.0 g/dL 3.2-4.5 CALCIUM CORRECTED 9.7 mg/dL 8.5-10.1 Blood manual differential performed detection - 03/20/18 11:45 Blood monocytes/100 leukocytes 8 % NRG Manual blood segmented neutrophils/100 leukocytes 80 % NRG Blood band neutrophils/100 leukocytes 9 % NRG Manual blood lymphocytes/100 leukocytes 3 % NRG Manual eosinophils/100 leukocytes in nose 0 % NRG Manual blood basophils/100 leukocytes 0 % NRG Blood anisocytosis detection by light microscopy SLIGHT NRG Blood toxic granules detection by light microscopy 1+ NRG Serum or plasma troponin i.cardiac measurement (mass/volume) - 03/20/18 11:45 Serum or plasma troponin i.cardiac measurement (mass/volume) < ng/ mL <0.30 Serum or plasma amylase measurement (enzymatic activity/volume) - 03/20/18 11: 45 Serum or plasma amylase measurement (enzymatic activity/volume) 41 U /L 25-125 Lipase - 03/20/18 11:45 Lipase 16 U/L 8-78 Bacterial blood culture - 03/20/18 11:45 Bacterial blood culture NG NRG Bacterial blood culture - 03/20/18 13:20 Bacterial blood culture NG NRG Complete blood count (CBC) with automated white blood cell (WBC) differential - 03/21/18 08:10 Blood leukocytes automated count (number/volume) 22.2 10*3/uL 4.3-11.0 Blood erythrocytes automated count (number/volume) 3.73 10*6/uL 4.35-5.85 Venous blood hemoglobin measurement (mass/volume) 11.3 g/dL 13.3-17.7 Blood hematocrit (volume fraction) 33 % 40-54 Automated erythrocyte mean corpuscular volume 89 [foz_us] 80-99 Automated erythrocyte mean corpuscular hemoglobin (mass per erythrocyte) 30 pg 25-34 Automated erythrocyte mean corpuscular hemoglobin concentration measurement ( mass/volume) 34 g/dL 32-36 Automated erythrocyte distribution width ratio 16.7 % 10.0-14.5 Automated blood platelet count (count/volume) 114 10*3/uL 130-400 Automated blood platelet mean volume measurement 12.3 [foz_us] 7.4-10.4 Automated blood neutrophils/100 leukocytes 88 % 42-75 Automated blood lymphocytes/100 leukocytes 3 % 12-44 Blood monocytes/100 leukocytes 8 % 0-12 Automated blood eosinophils/100 leukocytes 0 % 0-10 Automated blood basophils/100 leukocytes 0 % 0-10 Blood neutrophils automated count (number/volume) 19.6 10*3 1.8-7.8 Blood lymphocytes automated count (number/volume) 0.7 10*3 1.0-4.0 Blood monocytes automated count (number/volume) 1.7 10*3 0.0-1.0 Automated eosinophil count 0.1 10*3/uL 0.0-0.3 Automated blood basophil count (count/volume) 0.1 10*3/uL 0.0-0.1 Comprehensive metabolic panel - 03/21/18 08:10 Serum or plasma sodium measurement (moles/volume) 134 mmol/L 135-145 Serum or plasma potassium measurement (moles/volume) 3.6 mmol/L 3.6-5.0 Serum or plasma chloride measurement (moles/volume) 104 mmol/L 98-107 Carbon dioxide 20 mmol/L 21-32 Serum or plasma anion gap determination (moles/volume) 10 mmol/L 5-14 Serum or plasma urea nitrogen measurement (mass/volume) 18 mg/dL 7-18 Serum or plasma creatinine measurement (mass/volume) 1.12 mg/dL 0.60-1.30 Serum or plasma urea nitrogen/creatinine mass ratio 16 NRG Serum or plasma creatinine measurement with calculation of estimated glomerular filtration rate > NRG Serum or plasma glucose measurement (mass/volume) 119 mg/dL 70-105 Serum or plasma calcium measurement (mass/volume) 8.5 mg/dL 8.5-10.1 Serum or plasma total bilirubin measurement (mass/volume) 1.3 mg/dL 0.1-1.0 Serum or plasma alkaline phosphatase measurement (enzymatic activity/volume) 104 U/L 40-136 Serum or plasma aspartate aminotransferase measurement (enzymatic activity/ volume) 29 U/L 5-34 Serum or plasma alanine aminotransferase measurement (enzymatic activity/volume ) 37 U/L 0-55 Serum or plasma protein measurement (mass/volume) 5.4 g/dL 6.4-8.2 Serum or plasma albumin measurement (mass/volume) 2.8 g/dL 3.2-4.5 CALCIUM CORRECTED 9.5 mg/dL 8.5-10.1 Automated blood complete blood count (hemogram) panel - 03/22/18 06:22 Blood leukocytes automated count (number/volume) 27.0 10*3/uL 4.3-11.0 Blood erythrocytes automated count (number/volume) 3.58 10*6/uL 4.35-5.85 Venous blood hemoglobin measurement (mass/volume) 10.7 g/dL 13.3-17.7 Blood hematocrit (volume fraction) 32 % 40-54 Automated erythrocyte mean corpuscular volume 90 [foz_us] 80-99 Automated erythrocyte mean corpuscular hemoglobin (mass per erythrocyte) 30 pg 25-34 Automated erythrocyte mean corpuscular hemoglobin concentration measurement ( mass/volume) 33 g/dL 32-36 Automated erythrocyte distribution width ratio 16.7 % 10.0-14.5 Automated blood platelet count (count/volume) 138 10*3/uL 130-400 Automated blood platelet mean volume measurement 12.4 [foz_us] 7.4-10.4 Comprehensive metabolic panel - 03/22/18 06:22 Serum or plasma sodium measurement (moles/volume) 134 mmol/L 135-145 Serum or plasma potassium measurement (moles/volume) 3.5 mmol/L 3.6-5.0 Serum or plasma chloride measurement (moles/volume) 103 mmol/L 98-107 Carbon dioxide 18 mmol/L 21-32 Serum or plasma anion gap determination (moles/volume) 13 mmol/L 5-14 Serum or plasma urea nitrogen measurement (mass/volume) 21 mg/dL 7-18 Serum or plasma creatinine measurement (mass/volume) 1.32 mg/dL 0.60-1.30 Serum or plasma urea nitrogen/creatinine mass ratio 16 NRG Serum or plasma creatinine measurement with calculation of estimated glomerular filtration rate 54 NRG Serum or plasma glucose measurement (mass/volume) 98 mg/dL 70-105 Serum or plasma calcium measurement (mass/volume) 8.2 mg/dL 8.5-10.1 Serum or plasma total bilirubin measurement (mass/volume) 1.1 mg/dL 0.1-1.0 Serum or plasma alkaline phosphatase measurement (enzymatic activity/volume) 116 U/L 40-136 Serum or plasma aspartate aminotransferase measurement (enzymatic activity/ volume) 33 U/L 5-34 Serum or plasma alanine aminotransferase measurement (enzymatic activity/volume ) 32 U/L 0-55 Serum or plasma protein measurement (mass/volume) 5.2 g/dL 6.4-8.2 Serum or plasma albumin measurement (mass/volume) 2.6 g/dL 3.2-4.5 CALCIUM CORRECTED 9.3 mg/dL 8.5-10.1 Serum or plasma triglyceride measurement (mass/volume) - 03/22/18 17:28 Serum or plasma triglyceride measurement (mass/volume) 84 mg/dL <150 Automated blood complete blood count (hemogram) panel - 03/23/18 08:15 Blood leukocytes automated count (number/volume) 31.4 10*3/uL 4.3-11.0 Blood erythrocytes automated count (number/volume) 3.76 10*6/uL 4.35-5.85 Venous blood hemoglobin measurement (mass/volume) 11.5 g/dL 13.3-17.7 Blood hematocrit (volume fraction) 34 % 40-54 Automated erythrocyte mean corpuscular volume 90 [foz_us] 80-99 Automated erythrocyte mean corpuscular hemoglobin (mass per erythrocyte) 31 pg 25-34 Automated erythrocyte mean corpuscular hemoglobin concentration measurement ( mass/volume) 34 g/dL 32-36 Automated erythrocyte distribution width ratio 16.8 % 10.0-14.5 Automated blood platelet count (count/volume) 150 10*3/uL 130-400 Automated blood platelet mean volume measurement 11.8 [foz_us] 7.4-10.4 Comprehensive metabolic panel - 03/23/18 08:15 Serum or plasma sodium measurement (moles/volume) 134 mmol/L 135-145 Serum or plasma potassium measurement (moles/volume) 4.0 mmol/L 3.6-5.0 Serum or plasma chloride measurement (moles/volume) 106 mmol/L 98-107 Carbon dioxide 14 mmol/L 21-32 Serum or plasma anion gap determination (moles/volume) 14 mmol/L 5-14 Serum or plasma urea nitrogen measurement (mass/volume) 24 mg/dL 7-18 Serum or plasma creatinine measurement (mass/volume) 1.50 mg/dL 0.60-1.30 Serum or plasma urea nitrogen/creatinine mass ratio 16 NRG Serum or plasma creatinine measurement with calculation of estimated glomerular filtration rate 47 NRG Serum or plasma glucose measurement (mass/volume) 120 mg/dL 70-105 Serum or plasma calcium measurement (mass/volume) 9.0 mg/dL 8.5-10.1 Serum or plasma total bilirubin measurement (mass/volume) 0.9 mg/dL 0.1-1.0 Serum or plasma alkaline phosphatase measurement (enzymatic activity/volume) 129 U/L 40-136 Serum or plasma aspartate aminotransferase measurement (enzymatic activity/ volume) 36 U/L 5-34 Serum or plasma alanine aminotransferase measurement (enzymatic activity/volume ) 30 U/L 0-55 Serum or plasma protein measurement (mass/volume) 5.9 g/dL 6.4-8.2 Serum or plasma albumin measurement (mass/volume) 2.8 g/dL 3.2-4.5 CALCIUM CORRECTED 10.0 mg/dL 8.5-10.1 Automated blood complete blood count (hemogram) panel - 03/23/18 14:50 Blood leukocytes automated count (number/volume) 31.2 10*3/uL 4.3-11.0 Blood erythrocytes automated count (number/volume) 3.61 10*6/uL 4.35-5.85 Venous blood hemoglobin measurement (mass/volume) 10.9 g/dL 13.3-17.7 Blood hematocrit (volume fraction) 33 % 40-54 Automated erythrocyte mean corpuscular volume 90 [foz_us] 80-99 Automated erythrocyte mean corpuscular hemoglobin (mass per erythrocyte) 30 pg 25-34 Automated erythrocyte mean corpuscular hemoglobin concentration measurement ( mass/volume) 34 g/dL 32-36 Automated erythrocyte distribution width ratio 16.8 % 10.0-14.5 Automated blood platelet count (count/volume) 149 10*3/uL 130-400 Automated blood platelet mean volume measurement 12.1 [foz_us] 7.4-10.4 Whole blood basic metabolic panel - 03/23/18 14:50 Serum or plasma sodium measurement (moles/volume) 134 mmol/L 135-145 Serum or plasma potassium measurement (moles/volume) 3.8 mmol/L 3.6-5.0 Serum or plasma chloride measurement (moles/volume) 105 mmol/L 98-107 Carbon dioxide 15 mmol/L 21-32 Serum or plasma anion gap determination (moles/volume) 14 mmol/L 5-14 Serum or plasma urea nitrogen measurement (mass/volume) 25 mg/dL 7-18 Serum or plasma creatinine measurement (mass/volume) 1.51 mg/dL 0.60-1.30 Serum or plasma urea nitrogen/creatinine mass ratio 17 NRG Serum or plasma creatinine measurement with calculation of estimated glomerular filtration rate 46 NRG Serum or plasma glucose measurement (mass/volume) 131 mg/dL 70-105 Serum or plasma calcium measurement (mass/volume) 8.8 mg/dL 8.5-10.1 Magnesium - 03/23/18 14:50 Magnesium 1.7 mg/dL 1.8-2.4 Automated blood complete blood count (hemogram) panel - 03/24/18 10:55 Blood leukocytes automated count (number/volume) 32.1 10*3/uL 4.3-11.0 Blood erythrocytes automated count (number/volume) 4.00 10*6/uL 4.35-5.85 Venous blood hemoglobin measurement (mass/volume) 11.9 g/dL 13.3-17.7 Blood hematocrit (volume fraction) 35 % 40-54 Automated erythrocyte mean corpuscular volume 88 [foz_us] 80-99 Automated erythrocyte mean corpuscular hemoglobin (mass per erythrocyte) 30 pg 25-34 Automated erythrocyte mean corpuscular hemoglobin concentration measurement ( mass/volume) 34 g/dL 32-36 Automated erythrocyte distribution width ratio 16.4 % 10.0-14.5 Automated blood platelet count (count/volume) 185 10*3/uL 130-400 Automated blood platelet mean volume measurement 11.9 [foz_us] 7.4-10.4 Comprehensive metabolic panel - 03/24/18 10:55 Serum or plasma sodium measurement (moles/volume) 135 mmol/L 135-145 Serum or plasma potassium measurement (moles/volume) 3.8 mmol/L 3.6-5.0 Serum or plasma chloride measurement (moles/volume) 105 mmol/L 98-107 Carbon dioxide 18 mmol/L 21-32 Serum or plasma anion gap determination (moles/volume) 12 mmol/L 5-14 Serum or plasma urea nitrogen measurement (mass/volume) 24 mg/dL 7-18 Serum or plasma creatinine measurement (mass/volume) 1.52 mg/dL 0.60-1.30 Serum or plasma urea nitrogen/creatinine mass ratio 16 NRG Serum or plasma creatinine measurement with calculation of estimated glomerular filtration rate 46 NRG Serum or plasma glucose measurement (mass/volume) 135 mg/dL 70-105 Serum or plasma calcium measurement (mass/volume) 8.9 mg/dL 8.5-10.1 Serum or plasma total bilirubin measurement (mass/volume) 0.9 mg/dL 0.1-1.0 Serum or plasma alkaline phosphatase measurement (enzymatic activity/volume) 129 U/L 40-136 Serum or plasma aspartate aminotransferase measurement (enzymatic activity/ volume) 40 U/L 5-34 Serum or plasma alanine aminotransferase measurement (enzymatic activity/volume ) 34 U/L 0-55 Serum or plasma protein measurement (mass/volume) 5.8 g/dL 6.4-8.2 Serum or plasma albumin measurement (mass/volume) 2.8 g/dL 3.2-4.5 CALCIUM CORRECTED 9.9 mg/dL 8.5-10.1 Magnesium - 03/24/18 10:55 Magnesium 2.1 mg/dL 1.8-2.4 Complete blood count (CBC) with automated white blood cell (WBC) differential - 03/25/18 06:37 Blood leukocytes automated count (number/volume) 27.6 10*3/uL 4.3-11.0 Blood erythrocytes automated count (number/volume) 3.67 10*6/uL 4.35-5.85 Venous blood hemoglobin measurement (mass/volume) 11.3 g/dL 13.3-17.7 Blood hematocrit (volume fraction) 33 % 40-54 Automated erythrocyte mean corpuscular volume 89 [foz_us] 80-99 Automated erythrocyte mean corpuscular hemoglobin (mass per erythrocyte) 31 pg 25-34 Automated erythrocyte mean corpuscular hemoglobin concentration measurement ( mass/volume) 35 g/dL 32-36 Automated erythrocyte distribution width ratio 16.4 % 10.0-14.5 Automated blood platelet count (count/volume) 193 10*3/uL 130-400 Automated blood platelet mean volume measurement 11.6 [foz_us] 7.4-10.4 Automated blood neutrophils/100 leukocytes 90 % 42-75 Automated blood lymphocytes/100 leukocytes 3 % 12-44 Blood monocytes/100 leukocytes 6 % 0-12 Automated blood eosinophils/100 leukocytes 0 % 0-10 Automated blood basophils/100 leukocytes 0 % 0-10 Blood neutrophils automated count (number/volume) 24.9 10*3 1.8-7.8 Blood lymphocytes automated count (number/volume) 0.9 10*3 1.0-4.0 Blood monocytes automated count (number/volume) 1.8 10*3 0.0-1.0 Automated eosinophil count 0.0 10*3/uL 0.0-0.3 Automated blood basophil count (count/volume) 0.0 10*3/uL 0.0-0.1 Comprehensive metabolic panel - 03/25/18 06:37 Serum or plasma sodium measurement (moles/volume) 135 mmol/L 135-145 Serum or plasma potassium measurement (moles/volume) 3.5 mmol/L 3.6-5.0 Serum or plasma chloride measurement (moles/volume) 104 mmol/L 98-107 Carbon dioxide 22 mmol/L 21-32 Serum or plasma anion gap determination (moles/volume) 9 mmol/L 5-14 Serum or plasma urea nitrogen measurement (mass/volume) 22 mg/dL 7-18 Serum or plasma creatinine measurement (mass/volume) 1.30 mg/dL 0.60-1.30 Serum or plasma urea nitrogen/creatinine mass ratio 17 NRG Serum or plasma creatinine measurement with calculation of estimated glomerular filtration rate 55 NRG Serum or plasma glucose measurement (mass/volume) 130 mg/dL 70-105 Serum or plasma calcium measurement (mass/volume) 8.9 mg/dL 8.5-10.1 Serum or plasma total bilirubin measurement (mass/volume) 0.8 mg/dL 0.1-1.0 Serum or plasma alkaline phosphatase measurement (enzymatic activity/volume) 113 U/L 40-136 Serum or plasma aspartate aminotransferase measurement (enzymatic activity/ volume) 34 U/L 5-34 Serum or plasma alanine aminotransferase measurement (enzymatic activity/volume ) 32 U/L 0-55 Serum or plasma protein measurement (mass/volume) 5.4 g/dL 6.4-8.2 Serum or plasma albumin measurement (mass/volume) 2.7 g/dL 3.2-4.5 CALCIUM CORRECTED 9.9 mg/dL 8.5-10.1 Complete blood count (CBC) with automated white blood cell (WBC) differential - 03/26/18 06:26 Blood leukocytes automated count (number/volume) 24.2 10*3/uL 4.3-11.0 Blood erythrocytes automated count (number/volume) 3.60 10*6/uL 4.35-5.85 Venous blood hemoglobin measurement (mass/volume) 11.0 g/dL 13.3-17.7 Blood hematocrit (volume fraction) 32 % 40-54 Automated erythrocyte mean corpuscular volume 89 [foz_us] 80-99 Automated erythrocyte mean corpuscular hemoglobin (mass per erythrocyte) 31 pg 25-34 Automated erythrocyte mean corpuscular hemoglobin concentration measurement ( mass/volume) 34 g/dL 32-36 Automated erythrocyte distribution width ratio 16.0 % 10.0-14.5 Automated blood platelet count (count/volume) 167 10*3/uL 130-400 Automated blood platelet mean volume measurement 11.7 [foz_us] 7.4-10.4 Automated blood neutrophils/100 leukocytes 89 % 42-75 Automated blood lymphocytes/100 leukocytes 5 % 12-44 Blood monocytes/100 leukocytes 6 % 0-12 Automated blood eosinophils/100 leukocytes 0 % 0-10 Automated blood basophils/100 leukocytes 0 % 0-10 Blood neutrophils automated count (number/volume) 21.6 10*3 1.8-7.8 Blood lymphocytes automated count (number/volume) 1.1 10*3 1.0-4.0 Blood monocytes automated count (number/volume) 1.4 10*3 0.0-1.0 Automated eosinophil count 0.1 10*3/uL 0.0-0.3 Automated blood basophil count (count/volume) 0.0 10*3/uL 0.0-0.1 Comprehensive metabolic panel - 03/26/18 06:26 Serum or plasma sodium measurement (moles/volume) 136 mmol/L 135-145 Serum or plasma potassium measurement (moles/volume) 3.5 mmol/L 3.6-5.0 Serum or plasma chloride measurement (moles/volume) 103 mmol/L 98-107 Carbon dioxide 23 mmol/L 21-32 Serum or plasma anion gap determination (moles/volume) 10 mmol/L 5-14 Serum or plasma urea nitrogen measurement (mass/volume) 21 mg/dL 7-18 Serum or plasma creatinine measurement (mass/volume) 1.20 mg/dL 0.60-1.30 Serum or plasma urea nitrogen/creatinine mass ratio 18 NRG Serum or plasma creatinine measurement with calculation of estimated glomerular filtration rate 60 NRG Serum or plasma glucose measurement (mass/volume) 112 mg/dL 70-105 Serum or plasma calcium measurement (mass/volume) 8.8 mg/dL 8.5-10.1 Serum or plasma total bilirubin measurement (mass/volume) 0.8 mg/dL 0.1-1.0 Serum or plasma alkaline phosphatase measurement (enzymatic activity/volume) 124 U/L 40-136 Serum or plasma aspartate aminotransferase measurement (enzymatic activity/ volume) 34 U/L 5-34 Serum or plasma alanine aminotransferase measurement (enzymatic activity/volume ) 28 U/L 0-55 Serum or plasma protein measurement (mass/volume) 5.0 g/dL 6.4-8.2 Serum or plasma albumin measurement (mass/volume) 2.6 g/dL 3.2-4.5 CALCIUM CORRECTED 9.9 mg/dL 8.5-10.1 Complete blood count (CBC) with automated white blood cell (WBC) differential - 03/27/18 05:45 Blood leukocytes automated count (number/volume) 19.5 10*3/uL 4.3-11.0 Blood erythrocytes automated count (number/volume) 3.38 10*6/uL 4.35-5.85 Venous blood hemoglobin measurement (mass/volume) 10.3 g/dL 13.3-17.7 Blood hematocrit (volume fraction) 30 % 40-54 Automated erythrocyte mean corpuscular volume 89 [foz_us] 80-99 Automated erythrocyte mean corpuscular hemoglobin (mass per erythrocyte) 30 pg 25-34 Automated erythrocyte mean corpuscular hemoglobin concentration measurement ( mass/volume) 34 g/dL 32-36 Automated erythrocyte distribution width ratio 16.2 % 10.0-14.5 Automated blood platelet count (count/volume) 176 10*3/uL 130-400 Automated blood platelet mean volume measurement 11.7 [foz_us] 7.4-10.4 Automated blood neutrophils/100 leukocytes 88 % 42-75 Automated blood lymphocytes/100 leukocytes 6 % 12-44 Blood monocytes/100 leukocytes 6 % 0-12 Automated blood eosinophils/100 leukocytes 0 % 0-10 Automated blood basophils/100 leukocytes 0 % 0-10 Blood neutrophils automated count (number/volume) 17.2 10*3 1.8-7.8 Blood lymphocytes automated count (number/volume) 1.1 10*3 1.0-4.0 Blood monocytes automated count (number/volume) 1.1 10*3 0.0-1.0 Automated eosinophil count 0.0 10*3/uL 0.0-0.3 Automated blood basophil count (count/volume) 0.0 10*3/uL 0.0-0.1 Comprehensive metabolic panel - 03/27/18 05:45 Serum or plasma sodium measurement (moles/volume) 136 mmol/L 135-145 Serum or plasma potassium measurement (moles/volume) 3.6 mmol/L 3.6-5.0 Serum or plasma chloride measurement (moles/volume) 103 mmol/L 98-107 Carbon dioxide 24 mmol/L 21-32 Serum or plasma anion gap determination (moles/volume) 9 mmol/L 5-14 Serum or plasma urea nitrogen measurement (mass/volume) 20 mg/dL 7-18 Serum or plasma creatinine measurement (mass/volume) 1.11 mg/dL 0.60-1.30 Serum or plasma urea nitrogen/creatinine mass ratio 18 NRG Serum or plasma creatinine measurement with calculation of estimated glomerular filtration rate > NRG Serum or plasma glucose measurement (mass/volume) 132 mg/dL 70-105 Serum or plasma calcium measurement (mass/volume) 8.7 mg/dL 8.5-10.1 Serum or plasma total bilirubin measurement (mass/volume) 0.7 mg/dL 0.1-1.0 Serum or plasma alkaline phosphatase measurement (enzymatic activity/volume) 99 U/L 40-136 Serum or plasma aspartate aminotransferase measurement (enzymatic activity/ volume) 29 U/L 5-34 Serum or plasma alanine aminotransferase measurement (enzymatic activity/volume ) 26 U/L 0-55 Serum or plasma protein measurement (mass/volume) 5.0 g/dL 6.4-8.2 Serum or plasma albumin measurement (mass/volume) 2.6 g/dL 3.2-4.5 CALCIUM CORRECTED 9.8 mg/dL 8.5-10.1 Complete blood count (CBC) with automated white blood cell (WBC) differential - 03/28/18 04:50 Blood leukocytes automated count (number/volume) 20.8 10*3/uL 4.3-11.0 Blood erythrocytes automated count (number/volume) 3.50 10*6/uL 4.35-5.85 Venous blood hemoglobin measurement (mass/volume) 10.5 g/dL 13.3-17.7 Blood hematocrit (volume fraction) 31 % 40-54 Automated erythrocyte mean corpuscular volume 89 [foz_us] 80-99 Automated erythrocyte mean corpuscular hemoglobin (mass per erythrocyte) 30 pg 25-34 Automated erythrocyte mean corpuscular hemoglobin concentration measurement ( mass/volume) 34 g/dL 32-36 Automated erythrocyte distribution width ratio 16.0 % 10.0-14.5 Automated blood platelet count (count/volume) 197 10*3/uL 130-400 Automated blood platelet mean volume measurement 11.2 [foz_us] 7.4-10.4 Automated blood neutrophils/100 leukocytes 88 % 42-75 Automated blood lymphocytes/100 leukocytes 6 % 12-44 Blood monocytes/100 leukocytes 6 % 0-12 Automated blood eosinophils/100 leukocytes 0 % 0-10 Automated blood basophils/100 leukocytes 0 % 0-10 Blood neutrophils automated count (number/volume) 18.3 10*3 1.8-7.8 Blood lymphocytes automated count (number/volume) 1.2 10*3 1.0-4.0 Blood monocytes automated count (number/volume) 1.3 10*3 0.0-1.0 Automated eosinophil count 0.0 10*3/uL 0.0-0.3 Automated blood basophil count (count/volume) 0.0 10*3/uL 0.0-0.1 Comprehensive metabolic panel - 03/28/18 04:50 Serum or plasma sodium measurement (moles/volume) 138 mmol/L 135-145 Serum or plasma potassium measurement (moles/volume) 3.7 mmol/L 3.6-5.0 Serum or plasma chloride measurement (moles/volume) 104 mmol/L 98-107 Carbon dioxide 26 mmol/L 21-32 Serum or plasma anion gap determination (moles/volume) 8 mmol/L 5-14 Serum or plasma urea nitrogen measurement (mass/volume) 19 mg/dL 7-18 Serum or plasma creatinine measurement (mass/volume) 1.09 mg/dL 0.60-1.30 Serum or plasma urea nitrogen/creatinine mass ratio 17 NRG Serum or plasma creatinine measurement with calculation of estimated glomerular filtration rate > NRG Serum or plasma glucose measurement (mass/volume) 130 mg/dL 70-105 Serum or plasma calcium measurement (mass/volume) 8.6 mg/dL 8.5-10.1 Serum or plasma total bilirubin measurement (mass/volume) 0.7 mg/dL 0.1-1.0 Serum or plasma alkaline phosphatase measurement (enzymatic activity/volume) 96 U/L 40-136 Serum or plasma aspartate aminotransferase measurement (enzymatic activity/ volume) 27 U/L 5-34 Serum or plasma alanine aminotransferase measurement (enzymatic activity/volume ) 21 U/L 0-55 Serum or plasma protein measurement (mass/volume) 5.1 g/dL 6.4-8.2 Serum or plasma albumin measurement (mass/volume) 2.6 g/dL 3.2-4.5 CALCIUM CORRECTED 9.7 mg/dL 8.5-10.1 Encounters ACCT No. Visit Date/Time Discharge Status Pt. Type Provider Facility Loc./Unit Complaint [id number] 08/18/2014 08:47:00 08/18/2014 23:59:59 CLS Outpatient JENNIFER FERRELL APRN [id number] 03/13/2014 13:29:00 03/13/2014 23:59:59 CLS Outpatient JENNIFER FERRELL APRN [id number] 01/07/2014 14:45:00 01/07/2014 23:59:59 CLS Outpatient VICKY HODGSON APRN [id number] 11/11/2013 10:24:00 11/11/2013 23:59:59 CLS Outpatient MARIAELENA HUGHESNJENNIFER S [id number] 10/10/2013 12:57:00 10/10/2013 23:59:59 CLS Outpatient SIDNEY HORTA DO [id number] 09/04/2013 09:26:00 09/04/2013 23:59:59 CLS Outpatient JOSE LUIS ELLER MD [id number] 08/12/2013 09:01:00 08/12/2013 23:59:59 CLS Outpatient VIOLETA KNIGHT APRN [id number] 06/24/2013 09:31:00 06/24/2013 23:59:59 CLS Outpatient MARIAELENA ION 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 JENNIFER S [id number] 05/09/2013 18:14:00 05/09/2013 23:59:59 CLS Outpatient MARIAELENATAMIKA HUGHESNYOKASTAJENNIFER S [id number] 02/27/2013 14:44:00 02/27/2013 23:59:59 CLS Outpatient MARIAELENA HUGHESNYOKASTAJENNIFER S [id number] 01/09/2013 14:06:00 01/09/2013 23:59:59 CLS Outpatient MARIAELENA HUGHESNYOKASTAJENNIFER S [id number] 06/07/2012 11:10:00 06/07/2012 23:59:59 CLS Outpatient [id number] 05/02/2012 06:33:00 05/02/2012 23:59:59 [place] [id number] 03/28/2012 15:18:00 03/28/2012 23:59:59 CLS Outpatient MARIAELENA HUGHESNYOKASTAJENNIFER S [id number] 03/28/2012 15:18:00 03/28/2012 23:59:59 CLS Outpatient MARIAELENA HUGHESN JENNIFER S [id number] 12/10/2012 11:43:00 Document Registration [id number] 10/25/2012 12:58:00 Document Registration [id number] 10/12/2012 09:38:00 Document Registration [id number] 08/16/2012 17:41:00 Document Registration [id number] 03/27/2017 08:01:00 04/26/2017 11:59:00 DIS Outpatient Andrew Soto [id number] 03/24/2017 09:55:00 04/26/2017 09:05:00 DIS Outpatient KATE STUART [id number] 03/07/2017 09:26:00 Document Registration [id number] 09/18/2017 08:00:00 09/18/2017 23:59:59 CLS Outpatient MARIAELENA SOTO [facility] [id number] 08/16/2017 16:20:00 Document Registration [id number] 08/18/2016 11:08:00 Document Registration [id number] 03/20/2018 13:54:00 03/28/2018 13:15:00 DIS Inpatient DEMTERIO JARAMILLO, DARSHAN Freed [facility] 4TH ACUTE PANCREATITIS [id number] 11/01/2017 06:00:00 11/01/2017 10:50:00 DIS Outpatient KATE STUART MD [facility] RIGHT KNEE TORN MEDIAL MENISCUS [id number] 10/24/2017 11:47:00 10/24/2017 12:07:00 DIS Outpatient KATE STUART MD [facility] PREOP RIGHT KNEE TORN MEDIAL MENISCUS [id number] 03/22/2017 09:14:00 03/22/2017 15:30:00 DIS Outpatient KATE STUART MD [facility] RIGHT SHOULDER GLENOID LABRUM TEAR [id number] 03/20/2017 11:41:00 03/20/2017 14:13:00 DIS Outpatient KATE STUART MD [facility] PREOP RIGHT SHOULDER GLENOID LABRUM TEAR [id number] 01/25/2017 13:47:00 01/25/2017 23:59:59 CLS Outpatient SCARLET WHITFIELD APRN [facility] RT [id number] 01/23/2017 19:51:00 01/24/2017 03:55:00 DIS Outpatient SCARLET WHITFIELD APRN [facility] SLEEP [id number] 01/03/2017 08:37:00 01/03/2017 23:59:59 CLS Outpatient KATE STUART MD [facility] RAD ROTATOR CUFF TEAR PARTIAL RT [id number] 08/24/2016 10:53:00 08/24/2016 23:59:59 CLS Outpatient JENNIFER FERRELL [facility] RAD SCREENING FOR LUNG CA [id number] 11/12/2013 13:00:00 11/14/2013 16:52:00 DIS Outpatient RUSSELL MCKENNA [facility] REHAB DDD L-SPINE, CATALINO KNEE OA [id number] 04/02/2013 09:45:00 04/02/2013 23:59:59 CLS Outpatient ISIAH DAUGHERTY MD [facility] LAB COUNTER 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
[2018-04-04] MEDS ORDERED: ALPRAZolam 1 MG (XANAX) TAB PO PRN (14:45)
[2018-04-04] MEDS ORDERED: RT-ALBUTEROL SULF 2.5 MG/3 ML PRE-MIX VIAL INH PRN (14:45)
[2018-04-04] MEDS ORDERED: DOCUSATE SODIUM 100 MG (COLACE) CAP PO PRN (14:45)
[2018-04-04] MEDS ORDERED: PATIENT MAY USE OWN MEDS, ALL PO SCH (14:45)
[2018-04-04] MEDS ORDERED: RT-ALBUTEROL SULF 2.5 MG/3 ML PRE-MIX VIAL IH PRN (14:45)
[2018-04-04] MEDS ORDERED: NON-FORMULARY MEDICATION 1 EA EA (Hydrocodone/Acetaminophen (Hydrocodone-Acetamin 7.5-325) PO PRN (14:45)
[2018-04-04] MEDS ORDERED: ALPRAZolam 0.5 MG (XANAX) TAB PO PRN (15:00)
[2018-04-04 16:00] VITALS: BP 131/81
--- NOTE | 2018-04-04 16:01 | Diagnostic Imaging Report ---
INDICATION: Shortness of air. TIME OF EXAM: 3:47 PM COMPARISON: Correlation is made with prior study from 03/20/2018. FINDINGS: The heart size is stable. Left hemidiaphragm is chronically elevated. There is some slight blunting of the costophrenic angle on the left consistent with minimal pleural fluid or pleural thickening. There has been some improved aeration. The right lung is clear. The vascularity is normal. No pneumothorax is seen. IMPRESSION: Minimal residual left basilar pleural effusion or pleural thickening. No other significant abnormality is detected. Dictated by: Dictated on workstation # [id number]
--- NOTE | 2018-04-04 16:05 | Physical Therapy Evaluation ---
PT Evaluation-General Medical Diagnosis Admission Date Apr 04, 2018 at 14:13 Medical Diagnosis: COPD exac Onset Date: Apr 04, 2018 Therapy Diagnosis Therapy Diagnosis: weakness; abn gait Height/Weight Height (Feet): 5 Height (Inches): 9.00 Weight (Pounds): 372 Weight (Ounces): 4.0 Precautions Precautions/Isolations: Standard Precautions Weight Bear Status Right Lower Extremity: Right Weight Bearing/Tolerated Left Lower Extremity: Left Weight Bearing/Tolerated Referral Physician: Allen Reason for Referral: Evaluation/Treatment Medical History Pertinent Medical History: COPD, HTN Additional Medical History anxiety, HTN Current History Admitted with COPD exac and possible renal failure. Reviewed History: Yes Social History Home: Single Level Current Living Status: Alone Entry Into Home: Ramp Prior/Core FIM Prior Level of Function Functional [place] Measure 0=Not Assessed/NA 4=Minimal Assistance 1=Total Assistance 5=Supervision or Setup 2=Maximal Assistance 6=Modified [place] 3=Moderate Assistance 7=Complete [place] IRFPAI Quality Coding Scale 6 Independent with activity with or without an assistive device 5 Patient requires set up or clean up by helper. Patient completes activity by themselves 4 Supervision or touching assist (CGA). [place] provide cues , steadying assist 3 The helper provides less than half the effort to complete the activity 2 The helper provides more than half the effort to complete the activity 1 Dependent. The helper does all the effort to complete an activity 7 Patient refused to complete or attempt activity 9 The patient did not perform the activity before the current illness or injury 88 Not attempted due to Medical conditions or safety concerns Functional Abilities and Goals 3. Independent: Patient completed the activities by him/herself, with or without an assistive device, with no assistance from a helper. 2. Needed Some Help: Patient needed partial assistance from another person to complete activities. 1. Dependent: A helper completed the activities for the patient. 8. Unknown: 9. 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 Pain Numeric Pain Scale: 0-No Pain Location: No Pain Reported Objective Patient Orientation: Person, Place, Time, Situation Problem Solving: Good ROM/Strength ROM Lower Extremities wfL Strength Lower Extremities grossly 4-/5 Integumentary/Posture Integumentary refer to nursing notes; generalized edema noted Bowel Incontinence: No Bladder Incontinence: No Posture normal and symmetrical Neuromuscular (Tone, Coordination, Reflexes) WFL Sensory Vision: Functional Hearing: Functional Hand Dominance: Right Sensation Right Lower Extremit: Intact Sensation Left Lower Extremity: Intact Transfers Functional [place] Measure 0=Not Assessed/NA 4=Minimal Assistance 1=Total Assistance 5=Supervision or Setup 2=Maximal Assistance 6=Modified [place] 3=Moderate Assistance 7=Complete [place] Transfers (B, C, W/C) (FIM): 4 (CGA for safety) Supine to/from Sit: 5 Sit to/from Stand: 4 (CGA for safety) Pt stood at EOB and was able to take a few sidesteps to move closer to the head of bed. Gait Mode of Locomotion: Walk Anticipated Mode of Locomotion: Walk Comments/Gait Description Pt did not walk this visit. Balance Sitting Static: Good Sitting Dynamic: Good Standing Static: Fair Standing Dynamic: Fair Treatment PT eval complete Assessment/Needs Pt presents with decreased functional mobility due to recent hospital stay a few weeks ago as well as COPD exac and possible renal failure this visit. He becomes SOA easily and needs rest breaks between movements. He will beneift from skilled PT to address functional mobility and strength to allow him to return home and care for himself. Rehab Potential: Good PT Bar Tender Goals Bar Tender Goals PT Retirement Goals Time Frame: Apr 09, 2018 Transfers (B,C,W/C) (FIM): 7 Gait (FIM): 6 Gait distance (FIM): 3=150 ft Gait Assistive Device: FWW PT Plan Problem List Problem List: Activity Tolerance, Functional Strength, Safety, Balance, Gait, Transfer, Bed Mobility Treatment/Plan Treatment Plan: Continue Plan of Care Treatment Plan: Bed Mobility, Education, Functional Activity Oren, Functional Strength, Gait, Safety, Therapeutic Exercise, Transfers Treatment Duration: Apr 09, 2018 Frequency: 6 times per week Estimated Hrs Per Day: .5 hour per day Patient and/or Family Agrees t: Yes Safety Risks/Education Patient Education: Transfer Techniques, Safety Issues Teaching Recipient: Patient Teaching Methods: Discussion Response to Teaching: Reinforcement Needed Time/GCodes Time In: 1540 Time Out: 1559 Total Billed Treatment Time: 19 Total Billed Treatment visit EVM 19 SCOTT LO PT Apr 04, 2018 16:05
[2018-04-04 16:54] LABS: BASOPHILS % (AUTO) 0 % (0-10); EOSINOPHILS # (AUTO) 0.1 10^3/uL (0.0-0.3); EOSINOPHILS % (AUTO) 1 % (0-10); HEMATOCRIT 29 % (40-54); HEMOGLOBIN 9.3 G/DL (13.3-17.7); LYMPHOCYTES # (AUTO) 0.7 X 10^3 (1.0-4.0); LYMPHOCYTES % (AUTO) 6 % (12-44); MEAN CORPUSCULAR HEMOGLOBIN 30 PG (25-34); MEAN CORPUSCULAR HGB CONC 32 G/DL (32-36); MEAN CORPUSCULAR VOLUME 93 FL (80-99); MONOCYTES # (AUTO) 0.7 X 10^3 (0.0-1.0); MONOCYTES % (AUTO) 6 % (0-12); NEUTROPHILS # (AUTO) 10.9 X 10^3 (1.8-7.8); NEUTROPHILS % (AUTO) 88 % (42-75); PLATELET COUNT 148 10^3/uL (130-400); RED BLOOD COUNT 3.11 10^6/uL (4.35-5.85); RED CELL DISTRIBUTION WIDTH 15.2 % (10.0-14.5); WHITE BLOOD COUNT 12.5 10^3/uL (4.3-11.0)
[2018-04-04 17:09] VITALS: BP 151/87
[2018-04-04 17:27] LABS: BAND NEUTROPHILS 0 %; BASOPHILS % (MANUAL) 0 %; EOSINOPHILS % (MANUAL) 0 %; HYPOCHROMASIA SLIGHT; LYMPHOCYTES % (MANUAL) 3 %; MONOCYTES % (MANUAL) 3 %; NEUTROPHILS % (MANUAL) 94 %
[2018-04-04 17:29] LABS: ALANINE AMINOTRANSFERASE 13 U/L (0-55); ALBUMIN 2.6 GM/DL (3.2-4.5); ALKALINE PHOSPHATASE 77 U/L (40-136); BILIRUBIN,TOTAL 0.7 MG/DL (0.1-1.0); BUN/CREATININE RATIO 13; CALCIUM 8.5 MG/DL (8.5-10.1); CARBON DIOXIDE 28 MMOL/L (21-32); CHLORIDE 98 MMOL/L (98-107); CREATININE SERUM 0.97 MG/DL (0.60-1.30); GFR ESTIMATED > 60; GLUCOSE 94 MG/DL (70-105); MAGNESIUM 1.3 MG/DL (1.8-2.4); POTASSIUM 3.5 MMOL/L (3.6-5.0); SODIUM 139 MMOL/L (135-145); TOTAL PROTEIN 5.5 GM/DL (6.4-8.2)
[2018-04-04] MEDS: HYDROcodone/APAP 5 MG/325 MG (LORTAB) TAB PO PRN (17:52)
[2018-04-04] MEDS: FUROSEMIDE 40 MG (LASIX) TAB PO SCH (17:52)
[2018-04-04] MEDS: predniSONE 20 MG TAB PO SCH (17:56)
[2018-04-04] MEDS: RT-ALBUTEROL SULF 2.5 MG/3 ML PRE-MIX VIAL INH SCH ×2 (18:06→22:12)
[2018-04-04] MEDS: ENOXAPARIN 60 MG/0.6 ML (LOVENOX) SYR SC SCH (19:34)
[2018-04-04 19:41] VITALS: BP 126/67
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
[2018-04-04] MEDS: KCL 20 MEQ TAB (K-DUR) PO SCH (20:13)
[2018-04-04] MEDS ORDERED: NON-FORMULARY MEDICATION 1 EA EA (Budesonide 0.5 MG) NEB SCH (21:00)
[2018-04-04] MEDS: RT-BUDESONIDE NEBS 0.5 MG/2ML (PULMICORT) AMP INH SCH (22:09)
[2018-04-04] MEDS: ARFORMOTEROL 15 MCG/2 ML (BROVANA) INH SOLUTIION IH SCH (22:10)
[2018-04-05] VITALS: BP 140/86
[2018-04-05] MEDS: HYDROcodone/APAP 5 MG/325 MG (LORTAB) TAB PO PRN ×3 (00:19→12:20)
[2018-04-05] MEDS: RT-ALBUTEROL SULF 2.5 MG/3 ML PRE-MIX VIAL INH SCH ×6 (02:16→22:30)
[2018-04-05 04:00] VITALS: BP 125/72
[2018-04-05] MEDS ORDERED: MAGNESIUM 1 GM/100 ML IVPB 300 ML IV ONE (05:55)
[2018-04-05] MEDS: MAGNESIUM 1 GM/100 ML IVPB 100 ML IV SCH ×3 (05:59→07:49)
[2018-04-05] MEDS: RT-BUDESONIDE NEBS 0.5 MG/2ML (PULMICORT) AMP INH SCH ×2 (06:30→18:28)
[2018-04-05] MEDS: ARFORMOTEROL 15 MCG/2 ML (BROVANA) INH SOLUTIION IH SCH ×2 (06:30→22:30)
[2018-04-05] MEDS: ENOXAPARIN 60 MG/0.6 ML (LOVENOX) SYR SC SCH ×2 (06:53→17:55)
[2018-04-05] MEDS: FUROSEMIDE 40 MG (LASIX) TAB PO SCH ×2 (06:53→16:39)
[2018-04-05] MEDS: KCL 20 MEQ TAB (K-DUR) PO SCH ×2 (06:53→16:39)
[2018-04-05] MEDS: predniSONE 20 MG TAB PO SCH (07:48)
[2018-04-05] MEDS: lisINopril 40 MG (PRINIVIL) TABLET PO SCH (07:49)
[2018-04-05 08:00] VITALS: BP 171/82
[2018-04-05] MEDS ORDERED: PHARMACY TO DOSE SQ SCH (09:00)
[2018-04-05] MEDS: NYSTATIN CREAM (MYCOSTATIN) 30 GM TUBE TP SCH ×3 (09:50→21:19)
--- NOTE | 2018-04-05 10:17 | Physician Query Clarification ---
PQ-Intro New Diagnosis Admission/Discharge Admission Date: Apr 04, 2018 at 14:13 Discharge Date: The medical record reflects the following clinical scenario: History/Risk Factors: Height 69 in. Weight 159.693kg BMI 52.0 Clinical Findings: Gastric sleeve procedure done 01/2018 Dyspnea when he crosses the room. Weakness and gait instability. Treatment: Physical therapy and respiratory therapy. Question: What condition best reflects the above clinical scenario? Please document below. 1. Obesity. 2. Obesity not a current diagnosis. 3. Other, with explanation of the clinical findings. 4. Clinically undetermined, no explanation for the clinical findings. PHYSICIAN RESPONSE What condition reflects above: 1 In responding to this query, please exercise your independent professional judgment. The purpose of this communication is to more accurately reflect the complexity of your patients condition. The fact that a question is asked does not imply that any particular answer is desired or expected. Thank you for your timely response to this clarification. Requestors name: Natalia Meeks THIS PHYSICIAN QUERY FORM IS A PERMANENT PART OF THE MEDICAL RECORD NATALIA MEEKS Apr 05, 2018 10:17 SIDNEY HORTA DO Apr 06, 2018 16:46
--- NOTE | 2018-04-05 11:25 | Physical Therapy Progress Note ---
Therapy Progress Note Patient declined PT this a.m. secondary to he has been up ad ernie in room and had just returned from restroom. Patient requested PT return later in day. 1 visit HO CHAVEZ PT Apr 05, 2018 11:25
[2018-04-05] MEDS: LEVOFLOXACIN 750 MG TAB (LEVAQUIN) PO SCH (12:15)
[2018-04-05 12:30] VITALS: BP 142/83
--- NOTE | 2018-04-05 13:33 | Physical Therapy Daily Note ---
PT Daily Note-Current Subjective Pt awake in chair watching tv when PT arrived. Pt agreed to get up and walk for PT. Pain Numeric Pain Scale: 0-No Pain Location: No Pain Reported Mental Status Patient Orientation: Normal For Age Transfers Functional [place] Measure 0=Not Assessed/NA 4=Minimal Assistance 1=Total Assistance 5=Supervision or Setup 2=Maximal Assistance 6=Modified [place] 3=Moderate Assistance 7=Complete [place] IRFPAI Quality Coding Scale 6 Independent with activity with or without an assistive device 5 Patient requires set up or clean up by helper. Patient completes activity by themselves 4 Supervision or touching assist (CGA). [place] provide cues , steadying assist 3 The helper provides less than half the effort to complete the activity 2 The helper provides more than half the effort to complete the activity 1 Dependent. The helper does all the effort to complete an activity 7 Patient refused to complete or attempt activity 9 The patient did not perform the activity before the current illness or injury 88 Not attempted due to Medical conditions or safety concerns Transfers (B, C, W/C) (FIM): 5 Scootin Sit to/from Stand: 5 Weight Bearing Right Lower Extremity: Right Weight Bearing/Tolerated Left Lower Extremity: Left Weight Bearing/Tolerated Gait Training Gait (FIM): 5 Distance (FIM): 3=150 ft Distance: 225' Gait Level of Assist: 5 Gait Persons Needed: 1 Gait Assistive Device: FWW Assessment Pt able to ambulate for 225' with a FWW requiring SBA. Patient does show signs of fatigue during ambulation and will focus on increasing endurance over the week. Pt will continue therapy to maintain current level of function. PT Snf Goals System Safety Engineer Goals PT System Safety Engineer Goals Time Frame: Apr 09, 2018 Transfers (B,C,W/C) (FIM): 7 Gait (FIM): 6 Gait distance (FIM): 3=150 ft Gait Assistive Device: FWW PT Plan Problem List Problem List: Activity Tolerance, Functional Strength, Safety, Balance, Gait Treatment/Plan Treatment Plan: Continue Plan of Care Treatment Plan: Bed Mobility, Education, Functional Activity Oren, Functional Strength, Gait, Safety, Therapeutic Exercise, Transfers Treatment Duration: Apr 09, 2018 Frequency: 6 times per week Estimated Hrs Per Day: .5 hour per day Patient and/or Family Agrees t: Yes Time/GCodes Time In: 1236 Time Out: 1246 Total Billed Treatment Time: 10 Total Billed Treatment 1 Visit FA - 10' HO CHAVEZ PT Apr 05, 2018 13:33
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
[2018-04-05 15:59] VITALS: BP 160/77
--- NOTE | 2018-04-05 17:32 | Progress Note (SOAP) ---
Subjective Subjective/Events-last exam Patient sitting up in chair. Has been working with PT some. Having a hard time with the Lasix and diuresis due to frequency of needing to get up to the BR , unable to use a urinal. Review of Systems Date Seen by Provider: Apr 05, 2018 Time Seen by Provider: 07:20 Objective Exam Last Set of Vital Signs Vital Signs Date Time Temp Pulse Resp B/P (MAP) Pulse Ox O2 Delivery O2 Flow Rate FiO2 04/05/18 15:59 98.5 94 18 160/77 (104) 92 Room Air 04/05/18 12:30 2.00 04/04/18 17:09 21 Capillary Refill : I&O Intake and Output 04/05/18 00:00 Intake Total 570 ml Balance 570 ml Intake Oral 570 ml # Voids 2 # Bowel Movements 1 Daily Weight Change No General: Alert, Oriented X3, Cooperative Lungs: Clear to Auscultation (wheezing improved) Heart: Regular Rate Extremities: Other (LE edema) Results/Procedures Radiology Date of Exam:04/04/18 CHEST PA/LAT (2 VIEW) INDICATION: Shortness of air. TIME OF EXAM: 3:47 PM COMPARISON: Correlation is made with prior study from 03/20/2018. FINDINGS: The heart size is stable. Left hemidiaphragm is chronically elevated. There is some slight blunting of the costophrenic angle on the left consistent with minimal pleural fluid or pleural thickening. There has been some improved aeration. The right lung is clear. The vascularity is normal. No pneumothorax is seen. IMPRESSION: Minimal residual left basilar pleural effusion or pleural thickening. No other significant abnormality is detected. Assessment/Plan Assessment/Plan Assessment & Plan 1. 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 LE edema and dyspnea on exertion - treat with Lasix -Echo 04/05 - good diuresis; dyspnea likely multifactoral; will order bedside commode as patient is having difficulty getting the the bathroom frequently. 3. Weakness and gait instability - PT 04/05 - OT eval and treat, consider IRF 4. Morbid obesity 5. [place] skin condition 04/05 - Nystatin DVT PPX: Lovenox Clinical Quality Measures DVT/VTE Risk/Contraindication: Risk Factor Score Per Nursin RFS Level Per Nursing on Admit: 4+=Very High Risk Score Comment: SIDNEY Mendenhall DO Apr 05, 2018 17:32
[2018-04-05] MEDS: HYDROcodone/APAP 7.5 MG/325 MG (LORTAB, LORCET PLUS) TABLET PO PRN (17:53)
[2018-04-05 20:00] VITALS: BP 159/78
[2018-04-06] MEDS: HYDROcodone/APAP 7.5 MG/325 MG (LORTAB, LORCET PLUS) TABLET PO PRN ×2 (00:01→06:27)
[2018-04-06 00:09] VITALS: BP 136/65
[2018-04-06] MEDS: RT-ALBUTEROL SULF 2.5 MG/3 ML PRE-MIX VIAL INH SCH ×2 (02:07→07:11)
[2018-04-06 04:18] VITALS: BP 154/72
[2018-04-06] MEDS: ENOXAPARIN 60 MG/0.6 ML (LOVENOX) SYR SC SCH (06:25)
[2018-04-06] MEDS: KCL 20 MEQ TAB (K-DUR) PO SCH (06:25)
[2018-04-06] MEDS: FUROSEMIDE 40 MG (LASIX) TAB PO SCH (06:25)
[2018-04-06 06:55] LABS: BUN/CREATININE RATIO 14; CALCIUM 8.3 MG/DL (8.5-10.1); CARBON DIOXIDE 31 MMOL/L (21-32); CHLORIDE 97 MMOL/L (98-107); CREATININE SERUM 0.97 MG/DL (0.60-1.30); GFR ESTIMATED > 60; GLUCOSE 132 MG/DL (70-105); POTASSIUM 5.4 MMOL/L (3.6-5.0); SODIUM 138 MMOL/L (135-145)
[2018-04-06] MEDS: RT-BUDESONIDE NEBS 0.5 MG/2ML (PULMICORT) AMP INH SCH (07:13)
[2018-04-06] MEDS: ARFORMOTEROL 15 MCG/2 ML (BROVANA) INH SOLUTIION IH SCH (07:14)
[2018-04-06 08:00] VITALS: BP 129/80
[2018-04-06] MEDS: NYSTATIN CREAM (MYCOSTATIN) 30 GM TUBE TP SCH (08:37)
[2018-04-06] MEDS: lisINopril 40 MG (PRINIVIL) TABLET PO SCH (08:37)
[2018-04-06] MEDS: predniSONE 20 MG TAB PO SCH (08:37)
[2018-04-06] MEDS ORDERED: ALPR0.5T7 PO (09:12)
[2018-04-06] MEDS ORDERED: FURO40TA4 PO (09:12)
[2018-04-06] MEDS ORDERED: POTA20TA8 PO (09:12)
[2018-04-06] MEDS ORDERED: NYST15CR TP (09:12)
[2018-04-06] MEDS: LEVOFLOXACIN 750 MG TAB (LEVAQUIN) PO SCH (10:00)
[2018-04-06] MEDS ORDERED: ZOLP5TAB7 PO (12:34)
[2018-04-06] MEDS ORDERED: ALPR1TAB7 PO (12:34)
[2018-04-06] MEDS ORDERED: LEVO750T39 PO (12:34)
[2018-04-06] MEDS ORDERED: RT-ALBUINH IH (12:36)
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
[2018-04-17] MEDS ORDERED: FURO40TA4 PO (19:59)
[2018-04-17] MEDS ORDERED: Multivitamins/Minerals Therap PO (19:59)
[2018-04-17] MEDS ORDERED: POTA10TA6 PO (19:59)
[2018-04-17] MEDS ORDERED: HYDR-3816 PO (19:59)
== END 2018-04-06 10:00 | DRG 191 ==
LOC: 4TH 14:13
PROVIDERS: ADMIT Family Medicine; ATTEND Family Medicine
DX: J44.1 Chronic obstructive pulmonary disease with (acute) exacerbation (principal); R60.0 Localized edema; R26.81 Unsteadiness on feet; R53.1 Weakness; E66.01 Morbid (severe) obesity due to excess calories; Z68.43 Body mass index [BMI] 50.0-59.9, adult; I10 Essential (primary) hypertension; M54.9 Dorsalgia, unspecified; B37.2 Candidiasis of skin and nail; E87.5 Hyperkalemia; Z98.84 Bariatric surgery status; Z87.891 Personal history of nicotine dependence; Z60.2 Problems related to living alone; Z87.19 Personal history of other diseases of the digestive system; Z87.01 Personal history of pneumonia (recurrent)
CPT/HCPCS: 36415; 71046; 76937; 80048; 80053; 83735; 83880; 84443; 85007; 85027; 93306; 94640; 94760

== ENCOUNTER 2018-04-06 08:58 | Inpatient (IN) | payer MEDICARE ==
[~2018-04-06] VITALS: Ht 175.3 cm; Wt 131.2 kg
[2018-04-06] MEDS ORDERED: POTA20TA8 PO (09:12)
[2018-04-06] MEDS ORDERED: ALPR0.5T7 PO (09:12)
[2018-04-06] MEDS ORDERED: FURO40TA4 PO (09:12)
[2018-04-06] MEDS ORDERED: NYST15CR TP (09:12)
--- OUTSIDE RECORDS SUMMARY | 2018-04-06 10:50 | XMS REPORT | Continuity of Care Document ---
Author Author [facility] Address Unknown Phone Unavailable Allergies Active Description Code Type Severity Reaction Onset Reported/Identified Relationship to Patient Clinical Status Yes No Known Drug Allergies [id number] Drug Allergy Unknown N/A 03/20/2017 Medications There is no data. Problems Date Dx Coded Attending Type Code Diagnosis Diagnosed By 10/18/2010 JENNIFER FERRELL APRN 401.1 HYPERTENSION, BENIGN ESSENTIAL 10/18/2010 JENNIFER FERRELL APRN 496 CHRONIC AIRWAY OBSTRUCTION NOT ELSEWHERE [...] Involving Pelvic Region And Thigh 10/18/2010 MARIAELENA PURCHASING CLERK, JENNIFER S 719.46 Pain In Joint Involving Lower Leg 10/18/2010 YOKASTA FERRELL APRNNDA S V76.44 SCREENING FOR MALIGNANT NEOPLASMS OF THE PROSTATE 10/18/2010 MARIAELENA HUGHESN JENNIFER S 401.1 HYPERTENSION, BENIGN ESSENTIAL 10/18/2010 MARIAELENA HUGHESNYOKASTAJENNIFER S 496 CHRONIC AIRWAY OBSTRUCTION NOT ELSEWHERE CLASSIFIED 10/18/2010 YOKASTA FERRELL APRNNDA S 719.45 Pain In Joint Involving Pelvic Region And Thigh 10/18/2010 MARIAELENA PURCHASING CLERK JENNIFER S 719.46 Pain In Joint Involving [...] MALIGNANT NEOPLASMS OF THE PROSTATE 10/18/2010 MARIAELENA PURCHASING CLERK, JENNIFER S 401.1 HYPERTENSION, BENIGN ESSENTIAL 10/18/2010 MARIAELENA PURCHASING CLERK, JENNIFER S 496 CHRONIC AIRWAY OBSTRUCTION NOT ELSEWHERE CLASSIFIED 10/18/2010 MARIAELENA PURCHASING CLERK, JENNIFER S 719.45 Pain In Joint Involving Pelvic Region And Thigh 10/18/2010 MARIAELENA PURCHASING CLERK, JENNIFER S 719.46 Pain In Joint Involving Lower Leg 10/18/2010 MARIAELENA PURCHASING CLERK, JENNIFER S V76.44 SCREENING FOR MALIGNANT NEOPLASMS OF THE PROSTATE 10/18/2010 MADL PURCHASING CLERK, VICKY L 401.1 HYPERTENSION, BENIGN ESSENTIAL 10/18/2010 MADL PURCHASING CLERK, VICKY L 496 CHRONIC AIRWAY OBSTRUCTION NOT ELSEWHERE CLASSIFIED 10/18/2010 MADL PURCHASING CLERK, VICKY L 719.45 Pain In Joint Involving Pelvic Region And Thigh 10/18/2010 MADL PURCHASING CLERK, VICKY L 719.46 Pain In Joint Involving Lower Leg 10/18/2010 MADL PURCHASING CLERK, VICKY L V76.44 SCREENING FOR MALIGNANT NEOPLASMS OF THE PROSTATE 10/18/2010 MARIAELENA PURCHASING CLERK, JENNIFER S 401.1 HYPERTENSION, BENIGN ESSENTIAL 10/18/2010 MARIAELENA PURCHASING CLERK, JENNIFER S 496 CHRONIC AIRWAY OBSTRUCTION NOT ELSEWHERE CLASSIFIED 10/18/2010 MARIAELENA PURCHASING CLERK, JENNIFER S 719.45 Pain In Joint Involving Pelvic Region And Thigh 10/18/2010 MARIAELENA PURCHASING CLERK, JENNIFER S 719.46 Pain In Joint Involving Lower Leg 10/18/2010 MARIAELENA PURCHASING CLERK, JENNIFER S V76.44 SCREENING FOR MALIGNANT NEOPLASMS OF THE PROSTATE 10/18/2010 MARIAELENA PURCHASING CLERK, JENNIFER S 401.1 HYPERTENSION, BENIGN ESSENTIAL 10/18/2010 MARIAELENA PURCHASING CLERK, JENNIFER S 496 CHRONIC AIRWAY OBSTRUCTION NOT ELSEWHERE CLASSIFIED 10/18/2010 MARIAELENA PURCHASING CLERK, JENNIFER S 719.45 Pain In Joint Involving Pelvic Region And Thigh 10/18/2010 MARIAELENA PURCHASING CLERK, JENNIFER S 719.46 Pain In Joint Involving [...] 726.5 ENTHESOPATHY OF HIP REGION 11/04/2010 MARIAELENA PURCHASING CLERK, JENNIFER S 733.92 CHONDROMALACIA 11/04/2010 MARIAELENA PURCHASING CLERK, JENNIFER S 726.5 ENTHESOPATHY OF HIP REGION 11/04/2010 MARIAELENA PURCHASING CLERK, JENNIFER S 733.92 CHONDROMALACIA 11/04/2010 VIOLETA KNIGHT APRN 726.5 ENTHESOPATHY OF HIP REGION 11/04/2010 VIOLETA KNIGHT APRN 733.92 CHONDROMALACIA 11/04/2010 JOSE LUIS ELLER MD 726.5 ENTHESOPATHY OF HIP REGION 11/04/2010 JOSE LUIS ELLER MD 733.92 CHONDROMALACIA 11/04/2010 HORTA DO, SIDNEY K 726.5 ENTHESOPATHY OF HIP REGION 11/04/2010 HORTA DO, SIDNEY K 733.92 CHONDROMALACIA 11/04/2010 MARIAELENA PURCHASING CLERK, JENNIFER S 726.5 ENTHESOPATHY OF HIP REGION 11/04/2010 MARIAELENA PURCHASING CLERK, JENNIFER S 733.92 CHONDROMALACIA 11/04/2010 MADL PURCHASING CLERK, VICKY L 726.5 ENTHESOPATHY OF HIP REGION 11/04/2010 MADL PURCHASING CLERK, VICKY L 733.92 CHONDROMALACIA 11/04/2010 MARIAELENA PURCHASING CLERK, JENNIFER S 726.5 ENTHESOPATHY OF HIP REGION 11/04/2010 MARIAELENA PURCHASING CLERK, JENNIFER S 733.92 CHONDROMALACIA 11/04/2010 MARIAELENA PURCHASING CLERK, JENNIFER S 726.5 ENTHESOPATHY OF HIP REGION 11/04/2010 MARIAELENA PURCHASING CLERK, JENNIFER S 733.92 CHONDROMALACIA 11/04/2010 MARIAELENA PURCHASING CLERK, JENNIFER S 726.5 ENTHESOPATHY OF HIP REGION 11/04/2010 MARIAELENA PURCHASING CLERK, JENNIFER S 733.92 CHONDROMALACIA 02/10/2011 MARIAELENA PURCHASING CLERK, JENNIFER S 110.1 Onychomycosis 02/10/2011 MARIAELENA PURCHASING CLERK, JENNIFER S V04.81 Flu Dx (3 Yrs [...] (3 Yrs And Above, Im) 02/10/2011 MARIAELENA PURCHASING CLERK, JENNIFER S 110.1 Onychomycosis 02/10/2011 MARIAELENA PURCHASING CLERK, JENNIFER S V04.81 Flu Dx (3 Yrs And Above, Im) 02/10/2011 MADL PURCHASING CLERK, VICKY L 110.1 Onychomycosis 02/10/2011 MADL PURCHASING CLERK, VICKY L V04.81 Flu Dx (3 Yrs And Above, Im) 02/10/2011 MARIAELENA PURCHASING CLERK, JENNIFER S 110.1 Onychomycosis 02/10/2011 MARIAELENA PURCHASING CLERK, JENNIFER S V04.81 Flu Dx (3 Yrs And Above, Im) 02/10/2011 MARIAELENA PURCHASING CLERK, JENNIFER S 110.1 Onychomycosis 02/10/2011 MARIAELENA PURCHASING CLERK, JENNIFER S V04.81 Flu Dx (3 Yrs And Above, Im) 02/10/2011 MARIAELENA PURCHASING CLERK, JENNIFER S 110.1 Onychomycosis 02/10/2011 MARIAELENA PURCHASING CLERK, JENNIFER S V04.81 Flu Dx (3 Yrs And Above, Im) 03/01/2011 MARIAELENA PURCHASING CLERK, JENNIFER S 550.90 Inguinal Hernia Indirect Left 03/01/2011 NICK JARAMILLO, LUCI Pagan 550.90 Inguinal Hernia Indirect Left 03/01/2011 550.90 Inguinal Hernia Indirect Left 03/01/2011 550.90 Inguinal Hernia Indirect Left 03/01/2011 550.90 Inguinal Hernia Indirect Left 03/01/2011 550.90 Inguinal Hernia Indirect Left 03/01/2011 550.90 Inguinal Hernia Indirect Left 03/01/2011 MARIAELENA PURCHASING CLERK, JENNIFER S 550.90 Inguinal Hernia Indirect Left 03/01/2011 MARIAELENA PURCHASING CLERK, JENNIFER S 550.90 Inguinal Hernia Indirect Left 03/01/2011 MARIAELENA PURCHASING CLERK, JENNIFER S 550.90 Inguinal Hernia Indirect Left 03/01/2011 MARIAELENA PURCHASING CLERK, JENNIFER S 550.90 Inguinal Hernia Indirect Left 03/01/2011 EUGENE SOTO, VIOLETA Pratt 550.90 Inguinal Hernia Indirect Left 03/01/2011 DAPHNIE JARAMILLO, JOSE LUIS 550.90 Inguinal Hernia Indirect Left 03/01/2011 HORTA DO, SIDNEY K 550.90 Inguinal Hernia Indirect Left 03/01/2011 MARIAELENA PURCHASING CLERK, JENNIFER S 550.90 Inguinal Hernia Indirect Left 03/01/2011 MADL PURCHASING CLERK, VICKY L 550.90 Inguinal Hernia Indirect Left 03/01/2011 MARIAELENA PURCHASING CLERK, JENNIFER S 550.90 Inguinal Hernia Indirect Left 03/01/2011 MARIAELENA PURCHASING CLERK, JENNIFER S 550.90 Inguinal Hernia Indirect Left 03/01/2011 MARIAELENA PURCHASING CLERK, JENNIFER S 550.90 Inguinal Hernia Indirect Left 04/20/2011 MARIAELENA PURCHASING CLERK, JENNIFER S 386.19 Other Peripheral Vertigo 04/20/2011 NICK JARAMILLO, LUCI Pagan 386.19 Other Peripheral Vertigo 04/20/2011 386.19 Other Peripheral Vertigo 04/20/2011 386.19 Other Peripheral Vertigo 04/20/2011 386.19 Other Peripheral Vertigo 04/20/2011 386.19 Other Peripheral Vertigo 04/20/2011 386.19 Other Peripheral Vertigo 04/20/2011 MARIAELENA PURCHASING CLERK, JENNIFER S 386.19 Other Peripheral Vertigo 04/20/2011 MARIAELENA PURCHASING CLERK, JENNIFER S 386.19 Other Peripheral Vertigo 04/20/2011 MARIAELENA PURCHASING CLERK, JENNIFER S 386.19 Other Peripheral Vertigo 04/20/2011 MARIAELENA PURCHASING CLERK, JENNIFER S 386.19 Other Peripheral Vertigo 04/20/2011 VIOLETA KNIGHT APRN 386.19 Other Peripheral Vertigo 04/20/2011 JOSE LUIS ELLER MD 386.19 Other Peripheral Vertigo 04/20/2011 SIDNEY HORTA DO K 386.19 Other Peripheral Vertigo 04/20/2011 MARIAELENA PURCHASING CLERK, JENNIFER S 386.19 Other Peripheral Vertigo 04/20/2011 MADL PURCHASING CLERK, VICKY L 386.19 Other Peripheral Vertigo 04/20/2011 MARIAELENA PURCHASING CLERK, JENNIFER S 386.19 Other Peripheral Vertigo 04/20/2011 MARIAELENA PURCHASING CLERK, JENNIFER S 386.19 Other Peripheral Vertigo 04/20/2011 MARIAELENA PURCHASING CLERK, JENNIFER S 386.19 Other Peripheral Vertigo 05/16/2011 MARIAELENA PURCHASING CLERK, JENNIFER S 780.79 Other Malaise And Fatigue 05/16/2011 LUCI ROMERO MD 780.79 Other Malaise And Fatigue 05/16/2011 780.79 Other Malaise And Fatigue 05/16/2011 780.79 Other Malaise And Fatigue 05/16/2011 780.79 Other Malaise And Fatigue 05/16/2011 780.79 Other Malaise And Fatigue 05/16/2011 780.79 Other Malaise And Fatigue 05/16/2011 MARIAELENA PURCHASING CLERK, JENNIFER S 780.79 Other Malaise And Fatigue 05/16/2011 MARIAELENA PURCHASING CLERK, JENNIFER S 780.79 Other Malaise And Fatigue 05/16/2011 MARIAELENA PURCHASING CLERK, JENNIFER S 780.79 Other Malaise And Fatigue 05/16/2011 MARIAELENA PURCHASING CLERK, JENNIFER S 780.79 Other Malaise And Fatigue 05/16/2011 VIOLETA KNIGHT APRN 780.79 Other Malaise And Fatigue 05/16/2011 JOSE LUIS ELLER MD 780.79 Other Malaise And Fatigue 05/16/2011 SIDNEY HORTA DO 780.79 Other Malaise And Fatigue 05/16/2011 MARIAELENA PURCHASING CLERK, JENNIFER S 780.79 Other Malaise And Fatigue 05/16/2011 GOKUL PURCHASING CLERK, VICKY Townsend 780.79 Other Malaise And Fatigue 05/16/2011 MARIAELENA PURCHASING CLERK, JENNIFER S 780.79 Other Malaise And Fatigue 05/16/2011 MARIAELENA PURCHASING CLERK, JENNIFER S 780.79 Other Malaise And Fatigue 05/16/2011 MARIAELENA PURCHASING CLERK, JENNIFER S 780.79 Other Malaise And Fatigue 08/10/2011 MARIAELENA PURCHASING CLERK, JENNIFER S 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 [...] FERRELL APRN S 724.2 LUMBAGO 01/31/2012 MARIAELENA PURCHASING CLERK, JENNIFER S V04.81 FLU DX (3 YRS AND ABOVE, IM) 01/31/2012 MARIAELENA PURCHASING CLERK, JENNIFER S 724.2 LUMBAGO 01/31/2012 MARIAELENA PURCHASING CLERK, JENNIFER S V04.81 FLU DX (3 YRS AND ABOVE, IM) 01/31/2012 MARIAELENA PURCHASING CLERK, JENNIFER S 724.2 LUMBAGO 01/31/2012 MARIAELENA PURCHASING CLERK, JENNIFER S V04.81 FLU DX (3 YRS AND ABOVE, IM) 01/31/2012 MARIAELENA PURCHASING CLERK, JENNIFER S 724.2 LUMBAGO 01/31/2012 MARIAELENA PURCHASING CLERK, JENNIFER S V04.81 FLU DX (3 YRS [...] (3 YRS AND ABOVE, IM) 01/31/2012 MARIAELENA PURCHASING CLERK, JENNIFER S 724.2 LUMBAGO 01/31/2012 MARIAELENA PURCHASING CLERK, JENNIFER S V04.81 FLU DX (3 YRS AND ABOVE, IM) 01/31/2012 MADL PURCHASING CLERK, VICKY L 724.2 LUMBAGO 01/31/2012 MADL PURCHASING CLERK, VICKY L V04.81 FLU DX (3 YRS AND ABOVE, IM) 01/31/2012 MARIAELENA PURCHASING CLERK, JENNIFER S 724.2 LUMBAGO 01/31/2012 MARIAELENA PURCHASING CLERK, JENNIFER S V04.81 FLU DX (3 YRS AND ABOVE, IM) 01/31/2012 MARIAELENA PURCHASING CLERK, JENNIFER S 724.2 LUMBAGO 01/31/2012 MARIAELENA PURCHASING CLERK, JENNIFER S V04.81 FLU DX (3 YRS [...] HUGHESN, JENNIFER S 578.1 HEMATOCHEZIA 03/01/2012 MARIAELENA PURCHASING CLERK, JENNIFER S 787.91 DIARRHEA 03/01/2012 MADL PURCHASING CLERK, VICKY L 578.1 HEMATOCHEZIA 03/01/2012 MADL PURCHASING CLERK, VICKY L 787.91 DIARRHEA 03/01/2012 MARIAELENA PURCHASING CLERK, JENNIFER S 578.1 HEMATOCHEZIA 03/01/2012 MARIAELENA PURCHASING CLERK, JENNIFER S 787.91 DIARRHEA 03/01/2012 MARIAELENA PURCHASING CLERK, JENNIFER S 578.1 HEMATOCHEZIA 03/01/2012 MARIAELENA PURCHASING CLERK, JENNIFER S 787.91 DIARRHEA 03/01/2012 MARIAELENA PURCHASING CLERK, JENNIFER S 578.1 HEMATOCHEZIA 03/01/2012 MARIAELENA SOTO, [...] APRNNDA S 300.4 DYSTHYMIC DISORDER 03/28/2012 GOKUL PURCHASING CLERK, VICKY L 300.4 DYSTHYMIC DISORDER 03/28/2012 MARIAELENA PURCHASING CLERK, JENNIFER S 300.4 DYSTHYMIC DISORDER 03/28/2012 MARIAELENA PURCHASING CLERK, JENNIFER S 300.4 DYSTHYMIC DISORDER 03/28/2012 MARIAELENA PURCHASING CLERK, JENNIFER S 300.4 DYSTHYMIC DISORDER 08/16/2012 726.90 TENDONITIS 08/16/2012 726.90 TENDONITIS 08/16/2012 726.90 TENDONITIS 08/16/2012 726.90 TENDONITIS 08/16/2012 MARIAELENA PURCHASING CLERK, JENNIFER S 726.90 TENDONITIS 08/16/2012 MARIAELENA PURCHASING CLERK, JENNIFER S 726.90 TENDONITIS 08/16/2012 MARIAELENA PURCHASING CLERK, JENNIFER S 726.90 TENDONITIS 08/16/2012 YOKASTA FERRELL APRNNDA S 726.90 TENDONITIS 08/16/2012 VIOLETA KNIGHT APRN 726.90 TENDONITIS 08/16/2012 JOSE LUIS ELLER MD 726.90 TENDONITIS 08/16/2012 SIDNEY HORTA DO 726.90 TENDONITIS 08/16/2012 MARIAELENA HUGHESN, JENNIFER S 726.90 TENDONITIS 08/16/2012 GOKUL PURCHASING CLERKVICKY L 726.90 TENDONITIS 08/16/2012 MARIAELENA SOTO, JENNIFER [...] INJURY TO FACE AND NECK 10/25/2012 MARIAELENA PURCHASING CLERK, JENNIFER S 959.09 OTHER AND UNSPECIFIED INJURY TO FACE AND NECK 10/25/2012 MADL PURCHASING CLERK, VICKY L 959.09 OTHER AND UNSPECIFIED INJURY TO FACE AND NECK 10/25/2012 MARIAELENA PURCHASING CLERK, JENNIFER S 959.09 OTHER AND UNSPECIFIED INJURY TO FACE AND NECK 10/25/2012 MARIAELENA PURCHASING CLERK, JENNIFER S 959.09 OTHER AND UNSPECIFIED INJURY TO FACE AND NECK 02/27/2013 MARIAELENA PURCHASING CLERK, JENNIFER S 530.81 GERD 02/27/2013 MARIAELENA PURCHASING CLERK, JENNIFER S 530.81 GERD 02/27/2013 MARIAELENA PURCHASING CLERK, JENNIFER S 530.81 GERD 02/27/2013 VIOLETA KNIGHT APRN 530.81 GERD 02/27/2013 JOSE LUIS ELLER MD 530.81 GERD 02/27/2013 SIDNEY HORTA DO K 530.81 GERD 02/27/2013 MARIAELENA PURCHASING CLERK, JENNIFER S 530.81 GERD 02/27/2013 GOKUL PURCHASING CLERK, VICKY L 530.81 GERD 02/27/2013 MARIAELENA PURCHASING CLERK, JENNIFER S 530.81 GERD 02/27/2013 MARIAELENA PURCHASING CLERK, JENNIFER S 530.81 GERD 05/09/2013 MARIAELENA PURCHASING CLERK, JENNIFER S 462 PHARYNGITIS ACUTE 05/09/2013 MARIAELENA HUGHESN, JENNIFER S 462 PHARYNGITIS ACUTE 05/09/2013 VIOLETA KNIGHT APRN 462 PHARYNGITIS ACUTE 05/09/2013 JOSE LUIS ELLER MD 462 PHARYNGITIS ACUTE 05/09/2013 SIDNEY HORTA DO 462 PHARYNGITIS ACUTE 05/09/2013 MARIAELENA PURCHASING CLERK, JENNIFER S 462 PHARYNGITIS ACUTE 05/09/2013 MADL PURCHASING CLERK, VICKY L 462 PHARYNGITIS ACUTE 05/09/2013 AMRIAELENA PURCHASING CLERK, JENNIFER S 462 PHARYNGITIS ACUTE 05/09/2013 MARIAELENA PURCHASING CLERK, JENNIFER S 462 PHARYNGITIS ACUTE 06/24/2013 MARIAELENA [...] EXCEPT FINGERS ALONE WITHOUT COMPLICATION 06/24/2013 MADL PURCHASING CLERK, VICKY L 788.42 POLYURIA 06/24/2013 MADL PURCHASING CLERK, VICKY L 882.0 OPEN WOUND OF HAND EXCEPT FINGERS ALONE WITHOUT COMPLICATION 06/24/2013 MARIAELENA SOTO, JENNIFER S 788.42 POLYURIA 06/24/2013 MARIAELENA SOTO, JENNIFER S 882.0 OPEN WOUND OF HAND EXCEPT FINGERS ALONE WITHOUT COMPLICATION 06/24/2013 MARIAELENA PURCHASING CLERK, JENNIFER S 788.42 POLYURIA 06/24/2013 MARIAELENA SOTO, JENNIFER S 882.0 OPEN WOUND OF HAND EXCEPT FINGERS ALONE WITHOUT COMPLICATION 08/12/2013 VIOLETA KNIGHT APRN 493.92 ASTHMA (ACUTE) EXACERBATION 08/12/2013 VIOLETA KNIGHT APRN 601.9 PROSTATITIS UNSPECIFIED 08/12/2013 JOSE LUIS ELLER MD 493.92 ASTHMA (ACUTE) EXACERBATION 08/12/2013 JOSE LUIS ELLRE MD 601.9 PROSTATITIS UNSPECIFIED 08/12/2013 HORTA DO, SIDNEY K 493.92 ASTHMA (ACUTE) EXACERBATION 08/12/2013 HORTA DO, SIDNEY K 601.9 PROSTATITIS UNSPECIFIED 08/12/2013 MARIAELENA PURCHASING CLERK, JENNIFER S 493.92 ASTHMA (ACUTE) EXACERBATION 08/12/2013 MARIAELENA PURCHASING CLERK, JENNIFER S 601.9 PROSTATITIS UNSPECIFIED 08/12/2013 MADL PURCHASING CLERK, VICKY L 493.92 ASTHMA (ACUTE) EXACERBATION 08/12/2013 MADL PURCHASING CLERK, VICKY L 601.9 PROSTATITIS UNSPECIFIED 08/12/2013 MARIAELENA PURCHASING CLERK, JENNIFER S 493.92 ASTHMA (ACUTE) EXACERBATION 08/12/2013 MARIAELENA PURCHASING CLERK, JENNIFER S 601.9 PROSTATITIS UNSPECIFIED 08/12/2013 MARIAELENA PURCHASING CLERK, JENNIFER S 493.92 ASTHMA (ACUTE) EXACERBATION 08/12/2013 MARIAELENA PURCHASING CLERK, JENNIFER S 601.9 PROSTATITIS UNSPECIFIED 09/04/2013 JOSE LUIS ELLER MD 278.00 OBESITY 09/04/2013 JOSE LUIS ELLER MD 780.52 INSOMNIA UNSPECIFIED 09/04/2013 HORTA DO, SIDNEY K 278.00 OBESITY 09/04/2013 HORTA DO, SIDNEY K 780.52 INSOMNIA UNSPECIFIED 09/04/2013 MARIAELENA PURCHASING CLERK, JENNIFER S 278.00 OBESITY 09/04/2013 MARIAELENA PURCHASING CLERK, JENNIFER S 780.52 INSOMNIA UNSPECIFIED 09/04/2013 MADL PURCHASING CLERK, VICKY L 278.00 OBESITY 09/04/2013 MADL PURCHASING CLERK, VICKY L 780.52 INSOMNIA UNSPECIFIED 09/04/2013 MARIAELENA PURCHASING CLERK, JENNIFER S 278.00 OBESITY 09/04/2013 MARIAELENA PURCHASING CLERK, JENNIFER S 780.52 INSOMNIA UNSPECIFIED 09/04/2013 MARIAELENA PURCHASING CLERK, JENNIFER S 278.00 OBESITY 09/04/2013 MARIAELENA PURCHASING CLERK, JENNIFER S 780.52 INSOMNIA UNSPECIFIED 11/11/2013 MARIAELENA PURCHASING CLERK, JENNIFER S 564.00 CONSTIPATION 11/11/2013 MARIAELENA PURCHASING CLERK, JENNIFER S 799.02 HYPOXEMIA 11/11/2013 MADL PURCHASING CLERK, VICKY L 564.00 CONSTIPATION 11/11/2013 MADKristian SOTO, VICKY L 799.02 HYPOXEMIA 11/11/2013 MARIAELENA YOKASTA SOTONDA S 564.00 CONSTIPATION 11/11/2013 MARIAELENA YOKASTA SOTONDA S 799.02 HYPOXEMIA 11/11/2013 MARIAELENA PURCHASING CLERKYOKASTAJENNIFER S 564.00 CONSTIPATION 11/11/2013 MARIAELENA PURCHASING CLERKYOKASTAJENNIFER S 799.02 HYPOXEMIA 11/14/2013 RUSSELL MCKENNA TRANSFER OPERATOR Ot 715.36 LOC OSTEOARTH NOS-L/LEG 11/14/2013 RUSSELL MCKENNA TRANSFER OPERATOR Ot 722.52 LUMB/LUMBOSAC DISC DEGEN 11/14/2013 RUSSELL MCKENNA TRANSFER OPERATOR Ot V57.1 PHYSICAL THERAPY NEC 01/07/2014 VICKY HODGSON APRN L 462 ACUTE PHARYNGITIS 01/07/2014 MARIAELENA PURCHASING CLERKYOKASTAJENNIFER S 462 ACUTE PHARYNGITIS 01/07/2014 MARIAELENA PURCHASING CLERK, JENNIFER S 462 ACUTE PHARYNGITIS 03/13/2014 MARIAELENA PURCHASING CLERKYOKASTAJENNIFER S V03.82 PPV23 (PNEUMOVAX) DX 03/13/2014 MARIAELENA PURCHASING CLERK, JENNIFER S V04.81 FLU SHOT 03/13/2014 MARIAELENA PURCHASING CLERK, JENNIFER S V03.82 PPV23 (PNEUMOVAX) DX 03/13/2014 MARIAELENA PURCHASING CLERKYOKASTAJENNIFER S V04.81 FLU SHOT 08/18/2014 MARIAELENA PURCHASING CLERK, JENNIFER S 110.1 ONYCHOMYCOSIS 08/24/2016 JENNIFER FERRELLP Ot Z12.2 ENCNTR SCREEN FOR MALIGNANT NEOPLASM OF 08/24/2016 JENNIFER FERRELL TRANSFER OPERATOR Ot Z12.2 ENCNTR SCREEN FOR MALIGNANT NEOPLASM OF 08/25/2016 JENNIFER FERRELLP Ot Z12.2 ENCNTR SCREEN FOR MALIGNANT NEOPLASM OF 08/25/2016 JENNIFER FERRELLP Ot F17.210 NICOTINE DEPENDENCE, CIGARETTES, UNCOMPL 08/25/2016 JENNIFER FERRELL TRANSFER OPERATOR Ot Z12.2 ENCNTR SCREEN FOR MALIGNANT NEOPLASM OF 09/14/2016 JENNIFER FERRELL Ot F17.210 NICOTINE DEPENDENCE, CIGARETTES, UNCOMPL 09/14/2016 JENNIFER FERRELL Ot Z12.2 ENCNTR SCREEN FOR MALIGNANT NEOPLASM OF 01/04/2017 SADE JARAMILLO, KATE Reese Ot M75.111 INCOMPLETE ROTATR-CUFF TEAR/RUPTR OF R S 01/23/2017 SCARLET WHITFIELD PURCHASING CLERK Ot G47.30 SLEEP APNEA, UNSPECIFIED 01/23/2017 SCARLET WHITFIELD APRN Ot G47.30 SLEEP APNEA, UNSPECIFIED 01/24/2017 SCARLET WHITFIELD APRN Ot G47.30 SLEEP APNEA, UNSPECIFIED 01/24/2017 SCARLET WHITFIELD APRN Ot G47.33 OBSTRUCTIVE SLEEP APNEA (ADULT) (PEDIATR 01/24/2017 SCARLET WHITFIELD PURCHASING CLERK Ot I10 ESSENTIAL (PRIMARY) HYPERTENSION 01/25/2017 ISIAH DAUGHERTY MD Ot V58.69 OTH MED,LT,CURRENT USE 01/25/2017 ISIAH DAUGHERTY MD Ot V58.83 ENCOUNTER FOR THERAPEUTIC DRUG MONITORIN 01/25/2017 JENNIFER FERRELL Ot F17.210 NICOTINE DEPENDENCE, CIGARETTES, UNCOMPL 01/25/2017 JENNIFER FERRELL Ot Z12.2 ENCNTR SCREEN FOR MALIGNANT NEOPLASM OF 01/25/2017 SADE JARAMILLO, KATE Reese Ot M75.111 INCOMPLETE ROTATR-CUFF TEAR/RUPTR OF R S 02/01/2017 SCARLET WHITFIELD PURCHASING CLERK Ot E66.01 MORBID (SEVERE) OBESITY DUE TO EXCESS CA 02/01/2017 SCARLET WHITFIELD PURCHASING CLERK Ot J42 UNSPECIFIED CHRONIC BRONCHITIS 02/01/2017 SCARLET WHITFIELD PURCHASING CLERK Ot J45.909 UNSPECIFIED ASTHMA, UNCOMPLICATED 02/01/2017 SCARLET WHITFIELD APRN Ot R06.02 SHORTNESS OF BREATH 02/01/2017 SCARLET WHITFIELD APRN Ot R09.02 HYPOXEMIA 02/01/2017 SCARLET WHITFIELD PURCHASING CLERK Ot Z72.0 TOBACCO USE 03/07/2017 W 401.9 [...] OBESITY DUE TO EXCESS CA 03/22/2017 KATE TSUART MD, Ot G47.33 OBSTRUCTIVE SLEEP APNEA (ADULT) [...] 03/22/2017 KATE STUART MD, Ot Z79.899 OTHER CAT SITTER (CURRENT) DRUG THERAPY 03/22/2017 KATE STUART MD, [...] 03/23/2017 KATE STUART MD, Ot Z79.899 OTHER LONGTERM (CURRENT) DRUG THERAPY 03/23/2017 KATE STUART MD, [...] 03/24/2017 KATE STUART MD, Ot Z79.899 OTHER CAT SITTER (CURRENT) DRUG THERAPY 03/24/2017 KATE STUART MD, [...] 11/01/2017 KATE STUART MD Ot Z79.899 OTHER CAT SITTER (CURRENT) DRUG THERAPY 11/01/2017 KATE STUART MD [...] 11/02/2017 KATE STUART MD Ot Z79.899 OTHER LONGTERM (CURRENT) DRUG THERAPY 11/02/2017 KATE STUART MD [...] J44.1 CHRONIC OBSTRUCTIVE PULMONARY DISEASE W 03/27/2018 DARSHAN ATKINSON MD, Ot J90 PLEURAL EFFUSION, [...] Procedures Code [place] [address] ROUTINE VENIPUNCTURE 10/12/2012 78419 CBC 10/12/2012 43643 LIPID PANEL 10/12/2012 08262 CMP 10/12/2012 9778756 GFR CALC (RESULT ONLY) 10/12/2012 75160 PSA TOTAL 10/12/2012 G0008 FLU ADMINISTRATION ( MEDICARE ONLY) 02/27/2013 76273 UA LONG DIP 06/24/2013 18384 JOINT INJECTION- LARGE JOINT (SPECIFY MEDCIN DESCRIPTION) 10/10/2013 38002 ROUTINE VENIPUNCTURE 11/11/2013 30567 CBC 11/11/2013 1428709 GFR CALC (RESULT ONLY) 11/11/2013 62595 CMP 11/11/2013 02617 LIPID PANEL 11/11/2013 72613 TSH 11/11/2013 G0008 FLU ADMINISTRATION ( MEDICARE ONLY) 03/13/2014 20459 [employer] 03/19/2014 48924 ROUTINE VENIPUNCTURE 08/18/2014 26617 [employer] 08/18/2014 4068686 GFR CALC (RESULT ONLY) 08/18/2014 55942 BMP 08/18/2014 Results Test Result Range Comp. [...] 7-25 CREATININE 1.16 mg/dL 0.70-1.25 eGFR NON-AFR. URUGUAYAN 65 mL/min/1.73m2 > OR=60 eGFR 75 mL/min/1.73m2 [...] 140-400 MPV 11.5 fL 7.5-12.5 ABSOLUTE NEUTROPHILS 59947 cells/uL 4875-9046 ABSOLUTE LYMPHOCYTES 918 cells/uL 850-3900 ABSOLUTE MONOCYTES [...] Status Pt. Type Provider Facility Loc./Unit Complaint [id number] 08/18/2014 08:47:00 08/18/2014 23:59:59 CLS Outpatient JENNIFER FERRELL APRN [id number] 03/13/2014 13:29:00 03/13/2014 23:59:59 CLS Outpatient JENNIFER FERRELL APRN [id number] 01/07/2014 14:45:00 01/07/2014 23:59:59 CLS Outpatient VICKY HODGSON APRN [id number] 11/11/2013 10:24:00 11/11/2013 23:59:59 CLS Outpatient MARIAELENA HUGHESNJENNIFER S [id number] 10/10/2013 12:57:00 10/10/2013 23:59:59 CLS Outpatient SIDNEY HORTA DO [id number] 09/04/2013 09:26:00 09/04/2013 23:59:59 CLS Outpatient JOSE LUIS ELLER MD [id number] 08/12/2013 09:01:00 08/12/2013 23:59:59 CLS Outpatient VIOLETA KNIGHT APRN [id number] 06/24/2013 09:31:00 06/24/2013 23:59:59 CLS Outpatient MARIAELENA PURCHASING CLERK JENNIFER S [id number] 05/09/2013 18:14:00 05/09/2013 23:59:59 CLS Outpatient MARIAELENATAMIKA HUGHESNYOKASTAJENNIFER S [id number] 02/27/2013 14:44:00 02/27/2013 23:59:59 CLS Outpatient MARIAELENA HUGHESNYOKASTAJENNIFER S [id number] 01/09/2013 14:06:00 01/09/2013 23:59:59 CLS Outpatient MARIAELENA HUGHESNYOKASTAJENNIFER S [id number] 06/07/2012 11:10:00 06/07/2012 23:59:59 CLS Outpatient [id number] 05/02/2012 06:33:00 05/02/2012 23:59:59 [place] [id number] 03/28/2012 15:18:00 03/28/2012 23:59:59 CLS Outpatient MARIAELENA HUGHESNYOKASTAJENNIFER S [id number] 03/28/2012 15:18:00 03/28/2012 23:59:59 CLS Outpatient MARIAELENA HUGHESN JENNIFER S [id number] 12/10/2012 11:43:00 Document Registration [id number] 10/25/2012 12:58:00 Document Registration [id number] 10/12/2012 09:38:00 Document Registration [id number] 08/16/2012 17:41:00 Document Registration [id number] 03/27/2017 08:01:00 04/26/2017 11:59:00 DIS Outpatient Andrew Soto [id number] 03/24/2017 09:55:00 04/26/2017 09:05:00 DIS Outpatient KATE STUART [id number] 03/07/2017 09:26:00 Document Registration [id number] 09/18/2017 08:00:00 09/18/2017 23:59:59 CLS Outpatient MARIAELENA SOTO [facility] [id number] 08/16/2017 16:20:00 Document Registration [id number] 08/18/2016 11:08:00 Document Registration [id number] 03/20/2018 13:54:00 03/28/2018 13:15:00 DIS Inpatient DEMETRIO JARAMILLO, DARSHAN Freed [facility] [address] 4TH ACUTE PANCREATITIS [id number] 11/01/2017 06:00:00 11/01/2017 10:50:00 DIS Outpatient KATE STUART MD [facility] RIGHT KNEE TORN MEDIAL MENISCUS [id number] 10/24/2017 11:47:00 10/24/2017 12:07:00 DIS Outpatient KATE STUART MD [facility] [address] PREOP RIGHT KNEE TORN MEDIAL MENISCUS [id number] 03/22/2017 09:14:00 03/22/2017 15:30:00 DIS Outpatient KATE STUART MD [facility] RIGHT SHOULDER GLENOID LABRUM TEAR [id number] 03/20/2017 11:41:00 03/20/2017 14:13:00 DIS Outpatient KATE STUART MD [facility] [address] PREOP RIGHT SHOULDER GLENOID LABRUM TEAR [id number] 01/25/2017 13:47:00 01/25/2017 23:59:59 CLS Outpatient SCARLET WHITFIELD APRN [facility] [address] RT [id number] 01/23/2017 19:51:00 01/24/2017 03:55:00 DIS Outpatient SCARLET WHITFIELD APRN [facility] [address] SLEEP [id number] 01/03/2017 08:37:00 01/03/2017 23:59:59 CLS Outpatient KATE STUART MD [facility] [address] RAD ROTATOR CUFF TEAR PARTIAL RT [id number] 08/24/2016 10:53:00 08/24/2016 23:59:59 CLS Outpatient JENNIFER FERRELL [facility] [address] RAD SCREENING FOR LUNG CA [id number] 11/12/2013 13:00:00 11/14/2013 16:52:00 DIS Outpatient RUSSELL MCKENNA [facility] [address] REHAB DDD L-SPINE, CATALINO KNEE OA [id number] 04/02/2013 09:45:00 04/02/2013 23:59:59 CLS Outpatient ISIAH DAUGHERTY MD [facility] [address] LAB CAT SITTER MED USE
--- NOTE | 2018-04-06 10:52 | Physical Therapy Evaluation ---
PT Evaluation-General Medical Diagnosis Admission Date Apr 06, 2018 at 10:19 Medical Diagnosis: COPD exacerbation Onset Date: Apr 04, 2018 Therapy Diagnosis Therapy Diagnosis: impaired mobility, strength, endurance Height/Weight Height (Feet): 5 Height (Inches): 9.00 Weight (Pounds): 342 Weight (Ounces): 4.8 Referral Physician: Morgan Reason for Referral: Evaluation/Treatment Medical History Pertinent Medical History: COPD, HTN Current History Admitted with COPD exac and possible renal failure. Reviewed History: Yes Social History Home: Single Level Current Living Status: Alone Entry Into Home: Ramp Prior/Core FIM Prior Level of Function Therapy Code Descriptions/Definitions Functional [place] Measure: 0=Not Assessed/NA 4=Minimal Assistance 1=Total Assistance 5=Supervision or Setup 2=Maximal Assistance 6=Modified [place] 3=Moderate Assistance 7=Complete [place] Therapy Quality Codes: 6 Independent with activity with or without an assistive device 5 Patient requires set up or clean up by helper. Patient completes activity by themselves 4 Supervision or touching assist (CGA). [place] provide cues , steadying assist 3 The helper provides less than half the effort to complete the activity 2 The helper provides more than half the effort to complete the activity 1 Dependent. The helper does all the effort to complete an activity 7 Patient refused to complete or attempt activity 9 The patient did not perform the activity before the current illness or injury 88 Not attempted due to Medical conditions or safety concerns Functional Abilities and Goals: Independent: Patient completed the activities by him/herself, with or without an assistive device, with no assistance from a helper. Needed Some Help: Patient needed partial assistance from another person to complete activities. Dependent: A helper completed the activities for the patient. Unknown: Not Applicable: Bed Mobility: 7 Transfers (B,C,W/C) (FIM): 7 Gait: 6 Indoor Mobility (Ambulation): Independent Stairs: Not Applicalbe Prior Devices Use: Walker PT Evaluation-Current Subjective Patient in bed pre tx, agrees to PT reluctantly, he has 7/10 low back pain, patient states he is very tired and "just worn out". Pt/Family Goals "to get the swelling down in his legs" Objective Patient Orientation: Person, Place, Situation ROM/Strength ROM Lower Extremities generally limited due to obesity and edema Strenght Lower Extremities right lower extremity (hip flexion 3-/5, knee flexion 4-/5, knee extension 4-/5 , dorsiflexin 4-/5), left lower extremity (hip flexion 3-/5, knee flexion 4-/5, knee extension 4-/5, dorsiflexin 4-/5) Integumentary/Posture Integumentary edema both lower extremities Neuromuscular (Tone, Coordination, Reflexes) NT Sensory Vision: Wears Glasses Hearing: Functional Sensation Right Lower Extremit: Intact Sensation Left Lower Extremity: Intact Sensation Lower Extremities Patient has intact light touch sensation in his legs but it is diminished. Transfers Therapy Code Descriptions/Definitions Functional [place] Measure: 0=Not Assessed/NA 4=Minimal Assistance 1=Total Assistance 5=Supervision or Setup 2=Maximal Assistance 6=Modified [place] 3=Moderate Assistance 7=Complete [place] Therapy Quality Codes: 6 Independent with activity with or without an assistive device 5 Patient requires set up or clean up by helper. Patient completes activity by themselves 4 Supervision or touching assist (CGA). [place] provide cues , steadying assist 3 The helper provides less than half the effort to complete the activity 2 The helper provides more than half the effort to complete the activity 1 Dependent. The helper does all the effort to complete an activity 7 Patient refused to complete or attempt activity 9 The patient did not perform the activity before the current illness or injury 88 Not attempted due to Medical conditions or safety concerns Transfers (B, C, W/C) (FIM): 5 Scootin Rollin Roll Left to Right (QC): 4 Supine to/from Sit: 5 Sit to/from Stand: 5 Sit to Lying (QC): 4 Lying to Sitting/Side of Bed(Q: 4 Sit to Stand (QC): 4 Chair/Qgt-qi-Skrom Xfer(QC): 4 Car Transfer (QC): 3 Patient performs bed mobility and transfers with SBA, car transfers mod assist ( needs assist with both legs getting into and out). Occasional cues for safety and hand placement. Gait Does the Patient Walk?: Yes Mode of Locomotion: Walk Anticipated Mode of Locomotion: Walk Gait (FIM): 5 Walk 10 feet (QC): 4 Walk 50 ft with 2 Turns(QC): 4 Walk 150 ft (QC): 4 Walking 10ft/uneven surface-QC: 4 Distance: 200', 120', 100' Gait Level of Assist: 5 Gait Persons Needed: 1 Gait Assistive Device: FWW Comments/Gait Description Patient can ambulate 200' with a rolling walker with SBA (including 50' with at least 2 turns of 90 degrees and 10' over an uneven surface). Patient gets very SOB during ambulation but O2 sat was at 91% afterward. He needed a few minutes to recover. Ambulation was steady, no LOB. Stairs Stairs (FIM): 1 Level of Assist: 5 1 Step (curb) (QC): 4 Assistive Device: Walker Patient can go up and down 1 step using a rolling walker with SBA. Balance Sitting Static: Normal Sitting Dynamic: Normal Standing Static: Good Standing Dynamic: Good Treatment LAQ alternating for 5 min with 2# ankle weights. Parallel bars exercises x15 ( heel raises, mini-squats, marching) Assessment/Needs Patient was very fatigued after treatment and evaluation, he rated his fatigue level at 15 on a 10 point scale. Rehab Potential: Fair PT Short Term Goals Short Term Goals Time Frame: Apr 13, 2018 Transfers (B,C,W/C) (FIM): 5 Gait (FIM): 6 Gait Distance Comment: 200' Gait Level of Assist: 6 Gait Assistive Device: FWW PT Boat Deckhand Goals Retirement Goals PT Boat Deckhand Goals Time Frame: Apr 27, 2018 Transfers (B,C,W/C) (FIM): 6 Sit to Lying (QC): 6 Lying-Sitting on Side/Bed(QC): 6 Sit to Stand (QC): 6 Rollin Roll Left to Right (QC): 6 Chair/Zdp-vc-Kyueu Xfer(QC): 6 Car Transfer (QC): 6 Gait (FIM): 6 Distance: 300' Walk 10 feet (QC): 6 Walk 10ft-Uneven Surface(QC): 6 Walk 50ft with 2 Turns (QC): 6 Walk 150 ft (QC): 6 Gait Level of Assist: 6 Gait Assistive Device: FWW Stairs (FIM): 2 # of Steps: 4 1 Step (curb) (QC): 4 4 Steps (QC): 4 Stairs Level Of Assist: 5 PT Plan Problem List Problem List: Activity Tolerance, Functional Strength, Safety, Balance, Gait, Transfer, Bed Mobility, ROM Treatment/Plan Treatment Plan: Continue Plan of Care Treatment Plan: Bed Mobility, Concurrent Therapy, Education, Functional Activity Oren, Functional Strength, Group Therapy, Gait, Safety, Therapeutic Exercise, Transfers Treatment Duration: Apr 27, 2018 Frequency: At least 5 of 7 days/Wk (IRF) Estimated Hrs Per Day: 1.5 hours per day Patient and/or Family Agrees t: Yes Safety Risks/Education Patient Education: Gait Training, Transfer Techniques, Steps, Correct Positioning, Safety Issues Teaching Recipient: Patient Teaching Methods: Demonstration, Discussion Response to Teaching: Reinforcement Needed Discharge Recommendations Plan Patient will perform bed mobility and transfer training, balance and endurance training, functional strengthening, stair training, gait training, and education , to improve functional mobility and independence at home. Therapy D/C Recommendations: Home w/ Family Support, Home Independently Time/GCodes Time In: 1000 Time Out: 1100 Total Billed Treatment Time: 60 Total Billed Treatment 1 visit EVM 30' EX 15' GT 15' KIRA BECKER PT Apr 06, 2018 10:52
[2018-04-06] MEDS ORDERED: PATIENT MAY USE OWN MEDS, ALL PO SCH (11:15)
[2018-04-06 11:30] VITALS: BP 104/70
--- NOTE | 2018-04-06 11:40 | PM&R Post Admission Assessment ---
Post Admission Physician Asses Date seen by provider: Apr 06, 2018 Time seen by provider: 10:30 Admisison Dx: (1) Myopathy Status: Acute The preadmission screen agrees with the post admission assessment that the patient is a good candidate for inpatient rehabilitation. The patient will have a comprehensive program of inpatient rehabilitation with a goal of maximizing level of functional independence prior to discharge home with family and C. The patient will have PT/OT ninety minutes per day, each discipline, five days a week for 2 weeks for gait, strengthening, conditioning, balance, ADLs, any patient/family/caregiver training as necessary. Speech therapy to do cognitive assessment and treat as indicated. Rehabilitation nursing to assist with bowel, bladder, skin, medication administration, pain management. Traveling Operator to assist with discharge planning, community reentry. SCD's and lovenox subcut for DVT prophylaxis. He appears to be well motivated to participate in three hours of therapy a day. He should be able to tolerate three hours of therapy a day from a medical standpoint. He should benefit from the three hours of therapy a day. He has a reasonable discharge plan, reasonable discharge rehabilitation goals and a supportive family. He has various comorbidities that need to be closely monitored with medications and treatments adjusted on a daily basis as needed. These include: COPD HTN Chronic back pain [facility] code 03.9 etiologic DX COPD myopathy Barriers to discharge for this patient who had been independent prior to this are for him to be modified independent to supervision for ADLs and mobility skills prior to discharge home with [family], so as to lessen the burden of the caregivers. Risks for this patient include: 1. Fall 2. Fracture 3. DVT 4. Pulmonary embolism 5. Wound infection 6. Skin breakdown 7. Contractures 8. Poorly controlled pain 9. Urinary retention 10. UTI 11. Respiratory infection 12. Aspiration [] Estimated Length of Stay: []days Prognosis: Rehab prognosis appears good for goal of discharge home with [family ] modified independent to supervision for ADLs and mobility skills. Date Identified: Apr 06, 2018 Time Identified: 11:00 Action Plan to Resolve CSMI: Transfer meds reviewed Will clarify with Pharmacy if Prednisone on taper General: Alert, Oriented X3, Cooperative, No Acute Distress HEENT: Atraumatic, PERRLA, EOMI, Mucous Memb Moist/Alger Neck: Supple, No JVD Lungs: Other (decreased breath sounds) Heart: Regular Rate Abdomen: Normal Bowel Sounds, Soft, No Tenderness Extremities: Other (Plus edema both ankles) Neuro: Other (Sensation decreased slightly to light touch in ankles Strength 3- /5 prox lower limbs 4-/5 distal) Psych/Mental Status: Mental Status NL CATHY CASTELLANOS MD Apr 06, 2018 11:39
[2018-04-06] MEDS: NYSTATIN CREAM (MYCOSTATIN) 30 GM TUBE TP SCH ×2 (11:41→20:37)
[2018-04-06] MEDS ORDERED: RT-ALBUTEROL SULF 2.5 MG/3 ML PRE-MIX VIAL INH PRN ×2 (12:15)
--- NOTE | 2018-04-06 12:15 | HISTORY AND PHYSICAL ---
DATE OF SERVICE: 04/06/2018 CHIEF COMPLAINT: Weakness, shortness of breath. 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 Villa on 04/04/2018 due to exacerbation of COPD, this was treated. The patient was left with COPD myopathy from this with weakness and a decline in his functional independence. He was referred to inpatient rehabilitation unit. He was independent prior to this and working part-time as per above. He has family nearby, but lives do. Currently, he is on prednisone 40 mg a day. We will clarify with pharmacy and attending referring physician if this is to be tapered. He is min assist for gait with a walker, min assist for transfers with a walker. He has limited endurance. Has dyspnea on exertion. He is independent for eating, set up for grooming, min assist for body dressing, mod assist for lower body dressing and toileting. PAST MEDICAL HISTORY: COPD, asthma, hypertension, chronic back pain, remote history of tobaccoism. PAST SURGICAL HISTORY: Bilateral hip replacements, right shoulder surgery, bariatric sleeve 2018. ALLERGIES: No known medication allergies. FAMILY HISTORY: Alzheimer's, arthritis, coronary artery disease, hypertension, neoplasm. Father had lung cancer. SOCIAL HISTORY: He lives in [place], [place]. He has family nearby. PCP, Dr. Perez at [facility]. REVIEW OF SYSTEMS: A 10-point review of systems significant for shortness of breath, chronic back pain, weakness, arthritis. MEDICATIONS: Prednisone 40 mg p.o. daily, we will clarify with pharmacy if to be tapered, Brovana inhalation solution 50 mcg b.i.d., furosemide 40 mg p.o. b.i.d., KCl 20 mEq p.o. b.i.d., Proventil treatments q.4 hours, nystatin cream apply sparingly t.i.d., Xanax 0.5 mg p.o. b.i.d. p.r.n. anxiety, Colace 100 mg p.o. b.i.d. p.r.n. constipation, Lovenox 60 mg subq q.12h. for DVT prophylaxis, hydrocodone APAP 7.5 one tablet p.o. q.4 hours p.r.n. moderate pain. PHYSICAL EXAMINATION: GENERAL: Significant for a somewhat obese male appearing his stated age, alert and oriented, lying in bed, no acute distress. VITAL SIGNS: He is afebrile, pulse is 96, respirations 22, blood pressure 131/81, O2 sat 94% on room air. HEENT: Vision, speech, hearing grossly intact. No oral lesion is noted. NECK: Supple without mass. HEART: Regular rhythm. CHEST: Clear. Decreased breath sounds. ABDOMEN: Soft. Bowel sounds are present. Nontender. EXTREMITIES: The patient has peripheral edema in both ankles, no calf tenderness. MUSCULOSKELETAL: The patient has functional active range of motion in all 4 limbs. NEUROLOGIC: Sensation is slightly diminished to light touch in both legs at the ankles. Cognition grossly intact. He has functional strength both upper limbs 4/5. Strength in lower limbs. Hip flexion 3-/5, knee flexion 4-/5, knee extension 4-/5, dorsiflexion 4-/5. IMPRESSION: 1. 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 Currently, on steroids. We will check about tapering. 2. Acute exacerbation of chronic obstructive pulmonary disease , on steroids, improving. 3. Asthma, on treatments. 4. Hypertension, controlled with medication. 5. Chronic back pain. 6. History of bilateral hip surgery, shoulder surgery. 7. History of bariatric sleeve on 01/02/2018. PLAN: The patient will have a comprehensive program of inpatient rehabilitation with goal of maximizing level of functional independence prior to discharge home with home health care and family nearby. The patient will have PT, OT 90 minutes per day each discipline, 5 days a week for the above goals in mind for 2 weeks. Please see post-admission physician evaluation for details of plan of care. Speech therapy to do cognitive assessment and treat as indicated. Rehabilitation nursing assist with bowel, bladder, skin care, medication administration, pain management and psychosocial rehabilitation counselor for discharge planning, community reentry. Respiratory therapy to assist with respiratory treatment, administration, monitoring O2 sats, follow [facility] their schedule.Patient requests a dietary consult as well due to his recent Bariatric surgery. ESTIMATED LENGTH OF STAY: Two weeks. PROGNOSIS: Rehab prognosis appears good for goal of discharging home with home health care and family, modified independent supervision for ADLs and mobility skills. DIET: smaller more frequent meals with his home protein shakes due to his recent bariatric surgery. CODE STATUS: Full code. Job ID: [id number] DocumentID: [id number] Dictated Date: 04/06/2018 11:33:16 Allergy Specialist Date: 04/06/2018 12:14:33 Dictated By: CATHY CASTELLANOS MD [facility]
[2018-04-06] MEDS ORDERED: LEVO750T39 PO (12:34)
[2018-04-06] MEDS ORDERED: ALPR1TAB7 PO (12:34)
[2018-04-06] MEDS ORDERED: ZOLP5TAB7 PO (12:34)
[2018-04-06] MEDS ORDERED: RT-ALBUINH IH (12:36)
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
[2018-04-06] MEDS: HYDROcodone/APAP 7.5 MG/325 MG (LORTAB, LORCET PLUS) TABLET PO PRN ×2 (13:14→22:00)
--- NOTE | 2018-04-06 14:18 | ST Cognitive Linguistic Eval ---
Speech Evaluation-General Medical Diagnosis COPD exacerbation Onset Date: Apr 04, 2018 Therapy Diagnosis Therapy Diagnosis: Cognitive-Communication Precautions Precautions/Isolations: Standard Precautions Medical History Pertinent Medical History: COPD, HTN Reviewed History: Yes Social History Current Living Status: Alone Speech PLF-Current Status Prior Level of Function Patient lived at home alone and was independent with all his daily needs. Subjective Patient pleasant and cooperative. Language Eval: Auditory Comprehends Simple Yes/No Ques: Functional Indent/Objects Multiple Obrien: Functional Ident/Pics in Multiple Obrien: Functional Follows 1-Step Commands: Functional Follows Complex Directions: Functional Follows General Conversations: Functional Language Eval: Verbal Language Completes Spontaneous Greeting: Functional Produces Auto, Serial Info: Functional Imitates Simple Words/Phrases: Functional Word Finding: Functional Requests Basic Needs: Functional States Basic Personal Info: Functional Expresses Complex Ideas: Functional Cognitive Patient Orientation Patient alert and oriented to all concepts. Objective Cognitive Domain Attention: WNL Memory: WNL Problem Solving: Severe Executive Functions: WNL Objective Formal/Standardized Tests [facility] Cognitive/Communication Results Memory: Immediate: 3:3, Delayed 3:3, Orientation: 3:3, Organization/Sequencin:5, Problem Solvin:5, Comparison: 4:4, Auditory Comprehension: 10:10 Oral Motor/Speech Production Within Functional Limits Impression Patient's cognitive communication status is within functional limits for areas. Communication/Social Cognition Comprehension: 7 Expression: 7 Social Interaction: 7 Problem Solvin Memory: 7 Speech Patient Assess Memory/Recall Ability: Current season, Location of own room, Staff names and faces, That he or she is in a hsp/hsp unit Speech Short Term Goals Short Term Goals Short Term Goals Patient will be able to express needs/wants while in the rehab unit with 90 to 100% accuracy given no cues. Speech Veterinary Assistant Goals Veterinary Assistant Goals Patient will be able to return home safely with improved strength and coordination. Speech-Plan Patient/Family Goals Patient/Family Goals: Patient will return home post rehab. Treatment Plan Speech Therapy Treatment Plan: Continue Plan of Care Patient is not recommended for skilled ST at this time. Frequency: 1 time per week Estimated Hrs Per Day: .25 hour per day Rehab Potential: Good Barriers to Learning: NA Pt/Family Agrees to Plan: Yes Safety Risks/Education Teaching Recipient: Patient Teaching Methods: Discussion Response to Teaching: Verbalize Understanding Education Topics Provided: Safety in the unit. Time Speech Therapy Time In: 14:00 Speech Therapy Time Out: 14:15 Total Billed Time: 15 Billed Treatment Time 1, MUSTAPHA Tejeda Apr 06, 2018 14:18
--- NOTE | 2018-04-06 14:33 | Occupational Ther Daily Note ---
OT Current Status-Daily Note Subjective Pt agreeable to treatment. Reports back pain, doesn't rate, but states he recently had pain meds. Mental Status/Objective Therapy Code Descriptions/Definitions Functional [place] Measure: 0=Not Assessed/NA 4=Minimal Assistance 1=Total Assistance 5=Supervision or Setup 2=Maximal Assistance 6=Modified [place] 3=Moderate Assistance 7=Complete [place] ADL-Treatment Pt in restroom when therapist arrives. Pt had a BM and required assist to complete toileting hygiene. Pt states this has been an issue at home as well prior to hospitalization. Sit to stand with supervision and extra effort using grab bars. Pt able to pull pants up over hips. Stood at sink to wash hands with SBA. Pt brushed teeth with set up while standing at sink. Required seated rest break after grooming. Therapy Code Descriptions/Definitions Functional [place] Measure: 0=Not Assessed/NA 4=Minimal Assistance 1=Total Assistance 5=Supervision or Setup 2=Maximal Assistance 6=Modified [place] 3=Moderate Assistance 7=Complete [place] Therapy Quality Codes: 6 Independent with activity with or without an assistive device 5 Patient requires set up or clean up by helper. Patient completes activity by themselves 4 Supervision or touching assist (CGA). [place] provide cues , steadying assist 3 The helper provides less than half the effort to complete the activity 2 The helper provides more than half the effort to complete the activity 1 Dependent. The helper does all the effort to complete an activity 7 Patient refused to complete or attempt activity 9 The patient did not perform the activity before the current illness or injury 88 Not attempted due to Medical conditions or safety concerns Oral Hygiene (QC): 5 Toileting (FIM): 2 Toilet/Commode Transfer (FIM): 5 Toilet Transfer (QC): 4 Other Treatment Pt performed gait to therapy gym with FWW. Rest break after ambulation secondary to fatigue. Pt completed arm bike [id number] to increase overall activity tolerance needed for functional tasks. Pt completed activity with minimal resistance and slow pace. One rest break taken. Pt returned to room, transferred to bed with supervision. Sit to supine with SBA. Pt resting in bed with needs met after session. OT Short Term Goals Short Term Goals Transfers (B,C,W/C) (FIM): 5 1=Demonstrate adherence to instructed precautions during ADL tasks. 2=Patient will verbalize/demonstrate understanding of assistive devices/ modifications for ADL. 3=Patient will improve strength/tolerance for activity to enable patient to perform ADL's. OT Management Coordinator Goals [facility] Goals Time Frame: Apr 27, 2018 Eating (FIM): 7 Eating (QC): 6 Groomin Oral Hygiene (QC): 6 Bathing(FIM): 6 Shower/Bathe Self (QC): 6 Upper Body Dressing(FIM): 6 Upper Body Dressing (QC): 6 Lower Body Dressing(FIM): 6 Lower Body Dressing (QC): 6 On/Off Footwear (QC): 6 Toileting(FIM): 6 Toileting Hygiene (QC): 6 Toilet/Commode Transfer(FIM): 6 Toilet/Commode Transfer (QC): 6 Shower Transfer(FIM): 6 Additional Goals: 1-Demonstrate ADL Tasks, 2-Verbalize Understanding, 3- ImproveStrength/Oren 1=Demonstrate adherence to instructed precautions during ADL tasks. 2=Patient will verbalize/demonstrate understanding of assistive devices/ modifications for ADL. 3=Patient will improve strength/tolerance for activity to enable patient to perform ADL's. OT Education/Plan Discharge Recommendations Plan/Recommendations: Continue POC Treatment Plan/Plan of Care Patient would benefit from OT for education, treatment and training to promote independence in ADL's, mobility, safety and/or upper extremity function for ADL' s. Plan of Care: ADL Retraining, Functional Mobility, Group Exercise/Act as Ind, UE Funct Exercise/Act Treatment Duration: Apr 27, 2018 Frequency: At least 5 of 7 days/Wk (IRF) Estimated Hrs Per Day: 1.5 hours per day Rehab Potential: Good Time/GCodes Start Time: 13:25 Stop Time: 13:55 Total Time Billed (hr/min): 30 Billed Treatment Time 1 visit, ADL(15minutes), Ex(15minutes) HI FRITZ OT Apr 06, 2018 14:33
--- NOTE | 2018-04-06 15:00 | Physical Therapy Daily Note ---
PT Daily Note-Current Subjective Patient sitting EOB pre tx, agrees to PT, no complaints of pain. Patient has complaints about his bed, nursing notified and patient got a different one. Appearance Patient in bed post tx with nurse call, phone, tray, all needs met. Mental Status Patient Orientation: Normal For Age Transfers Therapy Code Descriptions/Definitions Functional [place] Measure: 0=Not Assessed/NA 4=Minimal Assistance 1=Total Assistance 5=Supervision or Setup 2=Maximal Assistance 6=Modified [place] 3=Moderate Assistance 7=Complete [place] Therapy Quality Codes: 6 Independent with activity with or without an assistive device 5 Patient requires set up or clean up by helper. Patient completes activity by themselves 4 Supervision or touching assist (CGA). [place] provide cues , steadying assist 3 The helper provides less than half the effort to complete the activity 2 The helper provides more than half the effort to complete the activity 1 Dependent. The helper does all the effort to complete an activity 7 Patient refused to complete or attempt activity 9 The patient did not perform the activity before the current illness or injury 88 Not attempted due to Medical conditions or safety concerns Transfers (B, C, W/C) (FIM): 5 Scootin Rollin Supine to/from Sit: 5 Sit to/from Stand: 5 Bed to/from Chair: 5 Gait Training Gait (FIM): 5 Distance: 150'x2 Gait Level of Assist: 5 Gait Persons Needed: 1 Gait Assistive Device: FWW Exercises NuStep Minutes: 10 NuStep Workload: 4 Treatments bed mobility and transfers, ambulation, functional strengthening Assessment Current Status: Fair Progress Patient gets SOB with ambulation but recovers with a short sitting rest break PT Short Term Goals Short Term Goals Time Frame: Apr 13, 2018 Transfers (B,C,W/C) (FIM): 5 Gait (FIM): 6 Gait Distance Comment: 200' Gait Level of Assist: 6 Gait Assistive Device: FWW PT Physical Therapist Technician Goals [facility] Goals PT Physical Therapist Technician Goals Time Frame: Apr 27, 2018 Transfers (B,C,W/C) (FIM): 6 Sit to Lying (QC): 6 Lying-Sitting on Side/Bed(QC): 6 Sit to Stand (QC): 6 Rollin Roll Left to Right (QC): 6 Chair/Npp-hv-Jsdtn Xfer(QC): 6 Car Transfer (QC): 6 Gait (FIM): 6 Distance: 300' Walk 10 feet (QC): 6 Walk 10ft-Uneven Surface(QC): 6 Walk 50ft with 2 Turns (QC): 6 Walk 150 ft (QC): 6 Gait Level of Assist: 6 Gait Assistive Device: FWW Stairs (FIM): 2 # of Steps: 4 1 Step (curb) (QC): 4 4 Steps (QC): 4 Stairs Level Of Assist: 5 PT Plan Problem List Problem List: Activity Tolerance, Functional Strength, Safety, Balance, Gait, Transfer, Bed Mobility, ROM Treatment/Plan Treatment Plan: Continue Plan of Care Treatment Plan: Bed Mobility, Concurrent Therapy, Education, Functional Activity Oren, Functional Strength, Group Therapy, Gait, Safety, Therapeutic Exercise, Transfers Treatment Duration: Apr 27, 2018 Frequency: At least 5 of 7 days/Wk (IRF) Estimated Hrs Per Day: 1.5 hours per day Patient and/or Family Agrees t: Yes Safety Risks/Education Patient Education: Gait Training, Transfer Techniques, Correct Positioning, Safety Issues Teaching Recipient: Patient Teaching Methods: Demonstration, Discussion Response to Teaching: Reinforcement Needed Time/GCodes Time In: 1430 Time Out: 1500 Total Billed Treatment Time: 30 Total Billed Treatment 1 visit EX 10' GT 20' KIRA BECKER PT Apr 06, 2018 15:00
[2018-04-06] MEDS: RT-ALBUTEROL SULF 2.5 MG/3 ML PRE-MIX VIAL INH SCH ×3 (15:01→21:25)
[2018-04-06 16:58] VITALS: BP 128/77
[2018-04-06] MEDS ORDERED: FUROSEMIDE 40 MG (LASIX) TAB PO SCH (17:00)
[2018-04-06] MEDS ORDERED: KCL 20 MEQ TAB (K-DUR) PO SCH (17:00)
[2018-04-06] MEDS: ENOXAPARIN 60 MG/0.6 ML (LOVENOX) SYR SC SCH (18:01)
[2018-04-06] MEDS: CATHETER FLUSH 10 ML SYR IV SCH (20:36)
[2018-04-06] MEDS: RT-BUDESONIDE NEBS 0.5 MG/2ML (PULMICORT) AMP INH SCH (21:25)
[2018-04-06] MEDS: ARFORMOTEROL 15 MCG/2 ML (BROVANA) INH SOLUTIION IH SCH (21:25)
[2018-04-06] MEDS: ALPRAZolam 0.5 MG (XANAX) TAB PO PRN (21:59)
[2018-04-07] MEDS: RT-ALBUTEROL SULF 2.5 MG/3 ML PRE-MIX VIAL INH SCH ×6 (01:07→21:35)
[2018-04-07] MEDS: HYDROcodone/APAP 7.5 MG/325 MG (LORTAB, LORCET PLUS) TABLET PO PRN ×3 (03:35→17:35)
[2018-04-07 05:17] VITALS: BP 119/71
[2018-04-07] MEDS: CATHETER FLUSH 10 ML SYR IV SCH ×3 (06:03→20:44)
[2018-04-07] MEDS: FUROSEMIDE 40 MG (LASIX) TAB PO SCH (06:03)
[2018-04-07] MEDS: ENOXAPARIN 60 MG/0.6 ML (LOVENOX) SYR SC SCH ×2 (06:03→18:52)
[2018-04-07 06:42] LABS: BUN/CREATININE RATIO 15; CALCIUM 8.4 MG/DL (8.5-10.1); CARBON DIOXIDE 33 MMOL/L (21-32); CHLORIDE 96 MMOL/L (98-107); CREATININE SERUM 0.96 MG/DL (0.60-1.30); GFR ESTIMATED > 60; GLUCOSE 113 MG/DL (70-105); SODIUM 140 MMOL/L (135-145)
[2018-04-07] MEDS: RT-BUDESONIDE NEBS 0.5 MG/2ML (PULMICORT) AMP INH SCH ×2 (07:48→19:14)
[2018-04-07] MEDS: predniSONE 20 MG TAB PO SCH (08:45)
[2018-04-07] MEDS ORDERED: lisINopril 20 MG (PRINIVIL) TABLET PO SCH (09:00)
[2018-04-07] MEDS: NYSTATIN CREAM (MYCOSTATIN) 30 GM TUBE TP SCH ×3 (09:57→20:44)
[2018-04-07] MEDS: ARFORMOTEROL 15 MCG/2 ML (BROVANA) INH SOLUTIION IH SCH ×2 (11:04→19:14)
--- NOTE | 2018-04-07 11:29 | Physical Therapy Daily Note ---
PT Daily Note-Current Subjective Pt. seated at EOB, states "I'm wore out." Pt. states he didn't sleep well and is tired today. He agrees to therapy with therapist encouragement. Mental Status Patient Orientation: Normal For Age Transfers Therapy Code Descriptions/Definitions Functional [place] Measure: 0=Not Assessed/NA 4=Minimal Assistance 1=Total Assistance 5=Supervision or Setup 2=Maximal Assistance 6=Modified [place] 3=Moderate Assistance 7=Complete [place] Therapy Quality Codes: 6 Independent with activity with or without an assistive device 5 Patient requires set up or clean up by helper. Patient completes activity by themselves 4 Supervision or touching assist (CGA). [place] provide cues , steadying assist 3 The helper provides less than half the effort to complete the activity 2 The helper provides more than half the effort to complete the activity 1 Dependent. The helper does all the effort to complete an activity 7 Patient refused to complete or attempt activity 9 The patient did not perform the activity before the current illness or injury 88 Not attempted due to Medical conditions or safety concerns Transfers (B, C, W/C) (FIM): 6 Sit to/from Stand: 6 Gait Training Does the Patient Walk?: Yes Gait (FIM): 2 Distance (FIM): 9=199-99 ft Distance: 2 x 100 ft Gait Level of Assist: 6 Gait Assistive Device: FWW steady gait and good gait speed Exercises NuStep Minutes: 10 NuStep Workload: 4 Treatments gait, exercise Assessment Current Status: Good Progress Pt. needs max assist to lift LE's onto Nustep footplates due to increased LE swelling and weakess. Pt. does well with ambulation but was not motivated this AM to increase gait distance due to c/o being tired. Pt. returned to bedside chair post session with call light and all needs met. PT Short Term Goals Short Term Goals Time Frame: Apr 13, 2018 Transfers (B,C,W/C) (FIM): 5 Gait (FIM): 6 Gait Distance Comment: 200' Gait Level of Assist: 6 Gait Assistive Device: FWW PT Sewing Supervisor Goals Custodial Goals PT Sewing Supervisor Goals Time Frame: Apr 27, 2018 Transfers (B,C,W/C) (FIM): 6 Sit to Lying (QC): 6 Lying-Sitting on Side/Bed(QC): 6 Sit to Stand (QC): 6 Rollin Roll Left to Right (QC): 6 Chair/Yxf-oh-Xgvvd Xfer(QC): 6 Car Transfer (QC): 6 Gait (FIM): 6 Distance: 300' Walk 10 feet (QC): 6 Walk 10ft-Uneven Surface(QC): 6 Walk 50ft with 2 Turns (QC): 6 Walk 150 ft (QC): 6 Gait Level of Assist: 6 Gait Assistive Device: FWW Stairs (FIM): 2 # of Steps: 4 1 Step (curb) (QC): 4 4 Steps (QC): 4 Stairs Level Of Assist: 5 PT Plan Treatment/Plan Treatment Plan: Continue Plan of Care Treatment Plan: Bed Mobility, Concurrent Therapy, Education, Functional Activity Oren, Functional Strength, Group Therapy, Gait, Safety, Therapeutic Exercise, Transfers Treatment Duration: Apr 27, 2018 Frequency: At least 5 of 7 days/Wk (IRF) Estimated Hrs Per Day: 1.5 hours per day Patient and/or Family Agrees t: Yes Time/GCodes Time In: 810 Time Out: 828 Total Billed Treatment Time: 18 Total Billed Treatment 1, Ex 18' KAJAL ODOM PT Apr 07, 2018 11:29
[2018-04-07 17:25] VITALS: BP 118/76
[2018-04-07] MEDS ORDERED: SALIVA STIMULANT MOUTH SPRAY (BIOTENE) 1.5 OZ MM PRN (19:00)
[2018-04-07] MEDS: CHLORASEPTIC LOZENGE MM PRN (20:49)
[2018-04-07] MEDS: ALPRAZolam 0.5 MG (XANAX) TAB PO PRN (21:38)
[2018-04-08] MEDS: RT-ALBUTEROL SULF 2.5 MG/3 ML PRE-MIX VIAL INH SCH ×5 (01:33→19:09)
[2018-04-08] MEDS: HYDROcodone/APAP 7.5 MG/325 MG (LORTAB, LORCET PLUS) TABLET PO PRN ×3 (01:41→20:54)
[2018-04-08 05:12] VITALS: BP 119/76
[2018-04-08] MEDS: FUROSEMIDE 40 MG (LASIX) TAB PO SCH (07:26)
[2018-04-08] MEDS: ENOXAPARIN 60 MG/0.6 ML (LOVENOX) SYR SC SCH ×2 (07:27→19:10)
[2018-04-08] MEDS: CATHETER FLUSH 10 ML SYR IV SCH ×3 (07:27→20:54)
[2018-04-08] MEDS: RT-BUDESONIDE NEBS 0.5 MG/2ML (PULMICORT) AMP INH SCH ×3 (08:13→21:51)
[2018-04-08] MEDS: predniSONE 20 MG TAB PO SCH (08:44)
[2018-04-08] MEDS: NYSTATIN CREAM (MYCOSTATIN) 30 GM TUBE TP SCH ×3 (08:45→20:55)
[2018-04-08] MEDS: ARFORMOTEROL 15 MCG/2 ML (BROVANA) INH SOLUTIION IH SCH ×2 (11:13→21:51)
[2018-04-08] MEDS: CHLORASEPTIC LOZENGE MM PRN (14:07)
[2018-04-08 17:50] VITALS: BP 113/73
[2018-04-08] MEDS: ALPRAZolam 0.5 MG (XANAX) TAB PO PRN (21:54)
[2018-04-09] MEDS: RT-ALBUTEROL SULF 2.5 MG/3 ML PRE-MIX VIAL INH SCH ×7 (01:42→22:32)
[2018-04-09 05:06] VITALS: BP 121/76
[2018-04-09] MEDS: CATHETER FLUSH 10 ML SYR IV SCH ×3 (06:16→22:40)
[2018-04-09] MEDS: FUROSEMIDE 40 MG (LASIX) TAB PO SCH (06:16)
[2018-04-09] MEDS: ENOXAPARIN 60 MG/0.6 ML (LOVENOX) SYR SC SCH ×2 (06:16→19:50)
[2018-04-09 06:31] LABS: BASOPHILS % (AUTO) 0 % (0-10); EOSINOPHILS # (AUTO) 0.1 10^3/uL (0.0-0.3); EOSINOPHILS % (AUTO) 1 % (0-10); HEMATOCRIT 29 % (40-54); HEMOGLOBIN 9.4 G/DL (13.3-17.7); LYMPHOCYTES # (AUTO) 1.2 X 10^3 (1.0-4.0); LYMPHOCYTES % (AUTO) 11 % (12-44); MEAN CORPUSCULAR HEMOGLOBIN 30 PG (25-34); MEAN CORPUSCULAR HGB CONC 33 G/DL (32-36); MEAN CORPUSCULAR VOLUME 92 FL (80-99); MEAN PLATELET VOLUME 11.8 FL (7.4-10.4); MONOCYTES # (AUTO) 0.9 X 10^3 (0.0-1.0); MONOCYTES % (AUTO) 8 % (0-12); NEUTROPHILS % (AUTO) 81 % (42-75); PLATELET COUNT 133 10^3/uL (130-400); RED BLOOD COUNT 3.13 10^6/uL (4.35-5.85); RED CELL DISTRIBUTION WIDTH 14.8 % (10.0-14.5); WHITE BLOOD COUNT 11.1 10^3/uL (4.3-11.0)
[2018-04-09] MEDS: RT-BUDESONIDE NEBS 0.5 MG/2ML (PULMICORT) AMP INH SCH (06:35)
[2018-04-09 06:47] LABS: BUN/CREATININE RATIO 17; CALCIUM 8.5 MG/DL (8.5-10.1); CARBON DIOXIDE 35 MMOL/L (21-32); CHLORIDE 96 MMOL/L (98-107); CREATININE SERUM 0.99 MG/DL (0.60-1.30); GFR ESTIMATED > 60; GLUCOSE 109 MG/DL (70-105); POTASSIUM 3.6 MMOL/L (3.6-5.0); SODIUM 140 MMOL/L (135-145)
[2018-04-09] MEDS: HYDROcodone/APAP 7.5 MG/325 MG (LORTAB, LORCET PLUS) TABLET PO PRN ×3 (07:11→22:39)
[2018-04-09] MEDS: CHLORASEPTIC LOZENGE MM PRN (08:17)
--- NOTE | 2018-04-09 08:42 | Occupational Ther Daily Note ---
OT Current Status-Daily Note Subjective Pt alert, sitting in recliner eating breakfast. Pt agrees to therapy. Pt c/o back pain, reported to nrsg, nrsg administered pain meds. Pt stated he wanted to see physician due to anxiety over lungs, pt feels like he needs antibiotics. Mental Status/Objective Patient Orientation: Person, Place, Time, Situation Therapy Code Descriptions/Definitions Functional [place] Measure: 0=Not Assessed/NA 4=Minimal Assistance 1=Total Assistance 5=Supervision or Setup 2=Maximal Assistance 6=Modified [place] 3=Moderate Assistance 7=Complete [place] Attachments: IV ADL-Treatment Therapy Code Descriptions/Definitions Functional [place] Measure: 0=Not Assessed/NA 4=Minimal Assistance 1=Total Assistance 5=Supervision or Setup 2=Maximal Assistance 6=Modified [place] 3=Moderate Assistance 7=Complete [place] Therapy Quality Codes: 6 Independent with activity with or without an assistive device 5 Patient requires set up or clean up by helper. Patient completes activity by themselves 4 Supervision or touching assist (CGA). [place] provide cues , steadying assist 3 The helper provides less than half the effort to complete the activity 2 The helper provides more than half the effort to complete the activity 1 Dependent. The helper does all the effort to complete an activity 7 Patient refused to complete or attempt activity 9 The patient did not perform the activity before the current illness or injury 88 Not attempted due to Medical conditions or safety concerns Grooming (FIM): 6 (Supervision. Pt washed face and hands in shower then combed hair sitting in recliner.) Oral Hygiene (QC): 6 Bathing (FIM): 3 (Using grabbars, hand held shower, long handle sponge and shower bench pt able to bathe all areas.Assist to rinse and dry under stomach and dry lower legs.) Bathing Location: L Arm, R Arm, L Upper Leg, R Upper Leg, L Lower Leg ( including foot), R Lower Leg (including foot), Chest, Abdomen, Buttocks, Perineal Area Shower/Bathe Self (QC): 3 Upper Body (FIM): 5 (After set up, pt able to complete by self.) Upper Body Dressing (QC): 5 Lower Body Dressing (FIM): 5 (After set up and use of AE pt able to complete with SBA.) Lower Body Dressing (QC): 4 On/Off Footwear (QC): 5 Toileting (FIM): 6 (Stood to urinate at toilet using grabbars for stability.) Toileting Hygiene (QC): 6 Toilet/Commode Transfer (FIM): 6 (Using grabbars) Shower Transfer(FIM): 6 (Using grabbars and shower bench) Other Treatment Pt took increased time to complete tasks due to decreased activity tolerance and SOA. 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 Pt given HEP for theraputty and medium resistance theraputty to use in room. Pt demonstrated understanding of exercises. After therapy, pt sitting in recliner with call light/phone in reach. All needs met in room. OT Short Term Goals Short Term Goals Transfers (B,C,W/C) (FIM): 5 1=Demonstrate adherence to instructed precautions during ADL tasks. 2=Patient will verbalize/demonstrate understanding of assistive devices/ modifications for ADL. 3=Patient will improve strength/tolerance for activity to enable patient to perform ADL's. OT Skilled Nursing Goals Skilled Nursing Goals Time Frame: Apr 27, 2018 Eating (FIM): 7 Eating (QC): 6 Groomin Oral Hygiene (QC): 6 Bathing(FIM): 6 Shower/Bathe Self (QC): 6 Upper Body Dressing(FIM): 6 Upper Body Dressing (QC): 6 Lower Body Dressing(FIM): 6 Lower Body Dressing (QC): 6 On/Off Footwear (QC): 6 Toileting(FIM): 6 Toileting Hygiene (QC): 6 Toilet/Commode Transfer(FIM): 6 Toilet/Commode Transfer (QC): 6 Shower Transfer(FIM): 6 Additional Goals: 1-Demonstrate ADL Tasks, 2-Verbalize Understanding, 3- ImproveStrength/Oren 1=Demonstrate adherence to instructed precautions during ADL tasks. 2=Patient will verbalize/demonstrate understanding of assistive devices/ modifications for ADL. 3=Patient will improve strength/tolerance for activity to enable patient to perform ADL's. OT Education/Plan Discharge Recommendations Plan/Recommendations: Continue POC Treatment Plan/Plan of Care Patient would benefit from OT for education, treatment and training to promote independence in ADL's, mobility, safety and/or upper extremity function for ADL' s. Plan of Care: ADL Retraining, Functional Mobility, Group Exercise/Act as Ind, UE Funct Exercise/Act Treatment Duration: Apr 27, 2018 Frequency: At least 5 of 7 days/Wk (IRF) Estimated Hrs Per Day: 1.5 hours per day Rehab Potential: Good Time/GCodes Start Time: 07:00 Stop Time: 08:30 Total Time Billed (hr/min): 90 Billed Treatment Time 1 visit-ADL 4 (60 min) EX 2 (30 min) SCOTT WIGGINS Apr 09, 2018 08:42
[2018-04-09] MEDS: NYSTATIN CREAM (MYCOSTATIN) 30 GM TUBE TP SCH ×3 (09:44→22:40)
--- NOTE | 2018-04-09 10:05 | Physical Therapy Daily Note ---
PT Daily Note-Current Subjective Pt states having a harder time breathing and catching his breath this morning. C /O fluid building up in upper legs while walking and makes it more difficult but if that was better feels he could tolerate walking more. Pain Numeric Pain Scale: 6 Location Body Site: Back Appearance At beginning of tx session, pt sitting up in elevating recliner awake and alert , agreeable to working with PT. At end of session, pt supine in bed with HOB elevated, call light, phone and bedside table within reach, all needs met Mental Status Patient Orientation: Person, Place, Time, Eyes Open, Situation, Normal For Age Transfers Therapy Code Descriptions/Definitions Functional [place] Measure: 0=Not Assessed/NA 4=Minimal Assistance 1=Total Assistance 5=Supervision or Setup 2=Maximal Assistance 6=Modified [place] 3=Moderate Assistance 7=Complete [place] Therapy Quality Codes: 6 Independent with activity with or without an assistive device 5 Patient requires set up or clean up by helper. Patient completes activity by themselves 4 Supervision or touching assist (CGA). [place] provide cues , steadying assist 3 The helper provides less than half the effort to complete the activity 2 The helper provides more than half the effort to complete the activity 1 Dependent. The helper does all the effort to complete an activity 7 Patient refused to complete or attempt activity 9 The patient did not perform the activity before the current illness or injury 88 Not attempted due to Medical conditions or safety concerns Transfers (B, C, W/C) (FIM): 5 Scootin Rollin Roll Left to Right (QC): 5 Supine to/from Sit: 5 Sit to/from Stand: 5 Sit to Lying (QC): 5 Sit to Stand (QC): 5 transitions requiring min to mod effort from pt, verb inst x2 required for safety in hand placement Gait Training Does the Patient Walk?: Yes Gait (FIM): 5 Distance (FIM): 3=150 ft Distance: 238, 192, 132 x2 Walk 10 feet (QC): 5 Walk 50 ft with 2 Turns(QC): 5 Walk 150 ft (QC): 5 Gait Level of Assist: 5 Gait Persons Needed: 1 Gait Assistive Device: FWW slow steady gait, LE's ER, decreased step length and height, decreased trunk rotation, decreased weight/UE pressure and reliance on walker with instruction and encouragement SOA with distances but recovers quickly with rest Exercises Seated Therapy Exercises: Ankle pumps, Long arc quads, Hip flexion, Hip abd/add Seated Reps: 20 (toe curlsankle inv/ev) NuStep Minutes: 10 NuStep Workload: 4 Neuromuscular Max assist with LE's onto NuStep Treatments transfer and gait training, ther ex Assessment Current Status: Good Progress increasing gait distance PT Short Term Goals Short Term Goals Time Frame: Apr 13, 2018 Transfers (B,C,W/C) (FIM): 5 Gait (FIM): 6 Gait Distance Comment: 200' Gait Level of Assist: 6 Gait Assistive Device: FWW PT Halfway Goals Halfway Goals PT Roll Line Operator Goals Time Frame: Apr 27, 2018 Transfers (B,C,W/C) (FIM): 6 Sit to Lying (QC): 6 Lying-Sitting on Side/Bed(QC): 6 Sit to Stand (QC): 6 Rollin Roll Left to Right (QC): 6 Chair/Qdq-ww-Efthh Xfer(QC): 6 Car Transfer (QC): 6 Gait (FIM): 6 Distance: 300' Walk 10 feet (QC): 6 Walk 10ft-Uneven Surface(QC): 6 Walk 50ft with 2 Turns (QC): 6 Walk 150 ft (QC): 6 Gait Level of Assist: 6 Gait Assistive Device: FWW Stairs (FIM): 2 # of Steps: 4 1 Step (curb) (QC): 4 4 Steps (QC): 4 Stairs Level Of Assist: 5 PT Plan Problem List Problem List: Activity Tolerance, Functional Strength, Gait, Transfer, Bed Mobility Treatment/Plan Treatment Plan: Continue Plan of Care Treatment Plan: Bed Mobility, Concurrent Therapy, Education, Functional Activity Oren, Functional Strength, Group Therapy, Gait, Safety, Therapeutic Exercise, Transfers Treatment Duration: Apr 27, 2018 Frequency: At least 5 of 7 days/Wk (IRF) Estimated Hrs Per Day: 1.5 hours per day Patient and/or Family Agrees t: Yes Safety Risks/Education Patient Education: Gait Training, Transfer Techniques, Safety Issues Teaching Recipient: Patient Teaching Methods: Discussion Response to Teaching: Verbalize Understanding, Return Demonstration Time/GCodes Time In: 905 Time Out: 1005 Total Billed Treatment Time: 60 Total Billed Treatment 1 visit EX x1 20 min GT x2 30 min FA x1 10 min ASIA SHAH MANAGER PROJECT MANAGEMENT Apr 09, 2018 10:05
[2018-04-09] MEDS: ARFORMOTEROL 15 MCG/2 ML (BROVANA) INH SOLUTIION IH SCH ×2 (10:49→22:32)
--- NOTE | 2018-04-09 14:23 | Physical Therapy Daily Note ---
PT Daily Note-Current Subjective Pt reports he is very tired this afternoon but agreeable to therapy "as much as I can do". Pain Numeric Pain Scale: 7 Location Body Site: Back Comment: states his back always hurts Appearance Pt supine in bed and sleeping upon arrival. Easily aroused but with difficult time "getting with it" per pt report At end of session all pt needs met Mental Status Attachments: [place] Transfers Therapy Code Descriptions/Definitions Functional [place] Measure: 0=Not Assessed/NA 4=Minimal Assistance 1=Total Assistance 5=Supervision or Setup 2=Maximal Assistance 6=Modified [place] 3=Moderate Assistance 7=Complete [place] Therapy Quality Codes: 6 Independent with activity with or without an assistive device 5 Patient requires set up or clean up by helper. Patient completes activity by themselves 4 Supervision or touching assist (CGA). [place] provide cues , steadying assist 3 The helper provides less than half the effort to complete the activity 2 The helper provides more than half the effort to complete the activity 1 Dependent. The helper does all the effort to complete an activity 7 Patient refused to complete or attempt activity 9 The patient did not perform the activity before the current illness or injury 88 Not attempted due to Medical conditions or safety concerns Transfers (B, C, W/C) (FIM): 5 Scootin Rollin Roll Left to Right (QC): 5 Supine to/from Sit: 5 Sit to/from Stand: 5 Sit to Stand (QC): 5 some increased effort by pt required with sit to stand transitions due to increased fatigue Gait Training Does the Patient Walk?: Yes Gait (FIM): 2 Distance (FIM): 6=708-82 ft Distance: 100 x2 Walk 10 feet (QC): 5 Walk 50 ft with 2 Turns(QC): 5 Gait Level of Assist: 5 Gait Persons Needed: 1 Gait Assistive Device: FWW decreased gait distance due to increased fatigue Exercises NuStep Minutes: 15 NuStep Workload: 4 Neuromuscular mod assist to get legs up into pedals on Nustep, pt able to get LE's off NuStep independently but with great effort and after seat was moved all the way back Treatments gait and transfer training, ther ex Assessment Current Status: Fair Progress increased fatigue this afternoon PT Short Term Goals Short Term Goals Time Frame: Apr 13, 2018 Transfers (B,C,W/C) (FIM): 5 Gait (FIM): 6 Gait Distance Comment: 200' Gait Level of Assist: 6 Gait Assistive Device: FWW PT Wash Worker Goals Snf Goals PT Wash Worker Goals Time Frame: Apr 27, 2018 Transfers (B,C,W/C) (FIM): 6 Sit to Lying (QC): 6 Lying-Sitting on Side/Bed(QC): 6 Sit to Stand (QC): 6 Rollin Roll Left to Right (QC): 6 Chair/Tki-bj-Vlhwk Xfer(QC): 6 Car Transfer (QC): 6 Gait (FIM): 6 Distance: 300' Walk 10 feet (QC): 6 Walk 10ft-Uneven Surface(QC): 6 Walk 50ft with 2 Turns (QC): 6 Walk 150 ft (QC): 6 Gait Level of Assist: 6 Gait Assistive Device: FWW Stairs (FIM): 2 # of Steps: 4 1 Step (curb) (QC): 4 4 Steps (QC): 4 Stairs Level Of Assist: 5 PT Plan Problem List Problem List: Activity Tolerance, Functional Strength, Safety, Gait, Transfer, Bed Mobility Treatment/Plan Treatment Plan: Continue Plan of Care Treatment Plan: Bed Mobility, Concurrent Therapy, Education, Functional Activity Oren, Functional Strength, Group Therapy, Gait, Safety, Therapeutic Exercise, Transfers Treatment Duration: Apr 27, 2018 Frequency: At least 5 of 7 days/Wk (IRF) Estimated Hrs Per Day: 1.5 hours per day Patient and/or Family Agrees t: Yes Safety Risks/Education Patient Education: Gait Training, Transfer Techniques, Safety Issues Teaching Recipient: Patient Teaching Methods: Discussion Response to Teaching: Verbalize Understanding Time/GCodes Time In: 1300 Time Out: 1330 Total Billed Treatment Time: 30 Total Billed Treatment 1 visit Ex x1 15 min GT x1 15 min ASIA SHAH HYDRODYNAMICS TEACHER Apr 09, 2018 14:23
[2018-04-09 15:41] VITALS: BP 123/77
--- NOTE | 2018-04-09 20:49 | PM & R (SOAP) Progress Note ---
Subjective This was a face to face visit with the patient. Date Seen by Provider: Apr 09, 2018 Time Seen by Provider: 20:30 Subjective/Events-last exam Patient was seen in his room this evening. Pleased that he is getting his home protein shakes still c/o sore throat Will check Strep screen and order Mycostatin empirically.Patient SBA for transfers Date Identified: Apr 09, 2018 Time Identified: 20:00 Medication Intervention: Mycostatin swish and swallow Review of Systems HEENT: Sore Throat Objective Physician Exam Last Set of Vital Signs Vital Signs Date Time Temp Pulse Resp B/P (MAP) Pulse Ox O2 Delivery O2 Flow Rate FiO2 04/09/18 18:34 94 Room Air 04/09/18 15:41 96.9 95 14 123/77 (92) 04/07/18 07:57 21 Capillary Refill : I&O Intake and Output 04/09/18 00:00 Intake Total 2180 ml Balance 2180 ml Intake Oral 2180 ml # Voids 9 General: Alert, Oriented X3, Cooperative, No Acute Distress HEENT: Atraumatic, PERRLA, EOMI, Mucous Memb Moist/[place] Neck: Supple, No JVD Lungs: Other (decreased breath sounds) Heart: Regular Rate Abdomen: Normal Bowel Sounds, Soft, No Tenderness Extremities: Other (Plus edema both ankles) Neuro: Other (Sensation decreased slightly to light touch in ankles Strength 3- /5 prox lower limbs 4-/5 distal) Psych/Mental Status: Mental Status NL Results Lab Data Laboratory Tests 04/07/18 06:05: Sodium Level 140, Potassium Level 4.0, Chloride Level 96L, Carbon Dioxide Level 33H, Anion Gap 11, Blood Urea Nitrogen 14, Creatinine 0.96, Estimat Glomerular Filtration Rate > 60, BUN/Creatinine Ratio 15, Glucose Level 113H, Calcium Level 8.4L 04/09/18 06:15: Sodium Level 140, Potassium Level 3.6, Chloride Level 96L, Carbon Dioxide Level 35H, Anion Gap 9, Blood Urea Nitrogen 17, Creatinine 0.99, Estimat Glomerular Filtration Rate > 60, BUN/Creatinine Ratio 17, Glucose Level 109H, Calcium Level 8.5, White Blood Count 11.1H, Red Blood Count 3.13L, Hemoglobin 9.4L, Hematocrit 29L, Mean Corpuscular Volume 92, Mean Corpuscular Hemoglobin 30, Mean Corpuscular Hemoglobin Concent 33, Red Cell Distribution Width 14.8H, Platelet Count 133, Mean Platelet Volume 11.8H, Neutrophils (%) (Auto) 81H, Lymphocytes (%) (Auto) 11L, Monocytes (%) (Auto) 8, Eosinophils (%) (Auto) 1, Basophils (%) (Auto) 0, Neutrophils # (Auto) 9.0H, Lymphocytes # (Auto) 1.2, Monocytes # (Auto) 0.9, Eosinophils # (Auto) 0.1, Basophils # (Auto) 0.0 Microbiology 04/08/18 MRSA Screen - Final, Complete Assessment/Plan Assessment and Plan COPD myopathy Sore throat most likely due to resp treatments HTN controlled with meds Asthma on treatments Chronic back pain Hx of bilateral hip surgery and shoulder surgery Hx of recent bariatric sleeve surgery Plan Continue PT/OT Trial of Mycostatin Team Conference 04-11-18 See orders (1) Myopathy Assessment & Plan: Strength improving with Therapy Status: Acute Co-Morbidities that are continuing to impact the rehab process: (include details ) CATHY CASTELLANOS MD Apr 09, 2018 20:49
--- NOTE | 2018-04-09 20:55 | Individualized Plan of Care ---
Individualized Plan of Care Rehab Nursing IPOC Order Admission Date Apr 06, 2018 at 10:19 Current Orders Orders Pt Evaluate/Treat Request (04/06/18 08:59) Request Ot Evaluate & Treat (04/06/18 08:59) Request For Cognitive Services (04/06/18 08:59) Admission Arrival Bed Request (04/06/18 10:19) Admission Order(Inpt,Obs,Sdc) (04/06/18 10:00) Code/Resuscitation (04/06/18 11:14) Sequential Compression Device (04/06/18 11:14) Alprazolam Tablet (Xanax Tablet) (04/06/18 11:15) Albuterol Pre-Mix Nebs (Rt) (Proventil (04/06/18 14:00) Arformoterol Inhalation Soln (Brovana In (04/06/18 21:00) Budesonide Inhalation Solution (Pulmicor (04/06/18 21:00) Docusate Sodium Capsule (Colace Capsule) (04/06/18 11:15) Enoxaparin Injection (Lovenox Injection) (04/06/18 19:00) Furosemide Tablet (Lasix Tablet) (04/06/18 17:00) Hydrocodone/Apap 7.5/325 Tab (Lortab 7. (04/06/18 11:15) Nystatin Cream (Mycostatin Cream) (04/06/18 13:00) Patient May Use Own Meds, All (Patient M (04/06/18 11:15) Prednisone Tablet (Deltasone Tablet) (04/07/18 08:00) Mat Initiate Protocol (04/06/18 11:14) Svn Small Volume Nebulizer (04/06/18 11:14) Svn Small Volume Nebulizer (04/06/18 11:14) Svn Small Volume Nebulizer (04/06/18 11:14) Pharmacy Communication (Pharmacy Communi (04/06/18 11:30) Consult Physician (04/06/18 11:44) Basic Metabolic Panel (04/07/18 06:00) Heart Healthy (04/06/18 Lunch) Albuterol Pre-Mix Nebs (Rt) (Proventil (04/06/18 12:15) Albuterol Pre-Mix Nebs (Rt) (Proventil (04/06/18 12:15) Rt Request For Service (04/06/18 12:13) Ambulate ,, (04/06/18 12:21) Sequential Compression Device (04/06/18 12:21) Dvt/Vte Risk - Notifiy Physici 08 (04/06/18 12:21) Lisinopril Tablet (Zestril Tablet) (04/07/18 09:00) Dietary Consult (04/06/18 13:58) Patient Visit (04/06/18 ) Speech Sound Lang Comp (04/06/18 ) Patient Visit (04/06/18 ) Pt Eval Moderate Complexity (04/06/18 ) Gait Training, Ea 15 Min (04/06/18 ) Exercise Therap, Ea 15 Min (04/06/18 ) Furosemide Tablet (Lasix Tablet) (04/07/18 07:00) Sodium Chloride Flush (Catheter Flush Sy (04/06/18 22:00) Patient Visit (04/07/18 ) Exercise Therap, Ea 15 Min (04/07/18 ) Saliva Stimulant Mouth [place] (Biotene Mo (04/07/18 19:00) Phenol/Na Phenolate Lozenge (Chlorasepti (04/07/18 19:00) Mrsa Screen (Icu,Preop,Cath) (04/08/18 02:41) Cbc With Automated Diff (04/09/18 06:00) Basic Metabolic Panel (04/09/18 06:00) Dietary Consult (04/08/18 19:38) General/Regular (04/09/18 Lunch) Mupirocin Ointment (Bactroban Ointment (04/09/18 21:00) Patient Visit (04/09/18 ) Exercise Therap, Ea 15 Min (04/09/18 ) Gait Training, Ea 15 Min (04/09/18 ) Functional Activities, Ea 15 (04/09/18 ) Rehab Nursing Orders: Ongoing Assess. of Function Status, Disease Management & Educaiton, DVT Prophylaxis, Infection Prevention, Medication Management & Education, Management of Risks & Complications, Management of Skin Intergrity, Nutrition Management, Pain Management, Patient/Family Support PT IPOC Problem List: Activity Tolerance, Functional Strength, Safety, Gait, Transfer, Bed Mobility Treatment Plan: Continue Plan of Care Bed Mobility, Concurrent Therapy, Education, Functional Activity Oren, Functional Strength, Group Therapy, Gait, Safety, Therapeutic Exercise, Transfers Treatment Duration: Apr 27, 2018 Frequency: At least 5 of 7 days/Wk (IRF) Estimated Hrs Per Day: 1.5 hours per day OT IPOC Problems: Decreased Activ Tolerance, Decreased UE Strength, Dependent Transfers , Impaired I ADL's, Impaired Self-Care Skills OT Treatment, Training and Edu: Yes Plan of Care: ADL Retraining, Functional Mobility, Group Exercise/Act as Ind, UE Funct Exercise/Act Treatment Duration: Apr 27, 2018 Frequency: At least 5 of 7 days/Wk (IRF) Estimated Hrs Per Day: 1.[address] IPOC Speech Therapy Treatment Plan: Continue Plan of Care Treatment Duration: Apr 27, 2018 Frequency: 1 time per week Estimated Hrs Per Day: .25 hour per day Mechanical Maintenance Instructor/Case Mgmt Mechanical Maintenance Instructor/Case Managemen: Discharge Planning, Patient/Family Counseling Dietitian/Director Of Securities And Real Estate Dietitian/Director Of Securities And Real Estate to monitor nutritional status and make changes and/or recommendations as needed and work with speech pathology on dietary upgrades as the occur. Physician IPOC Medical Issues being managed closely and that require the 24 hour availability of a physician: COPD HTN Steroid usage Medical Issues: DVT Prophylaxis, Falls Precautions, Infection Protection, Pain Management, Other (List) (as per above) Brief Synthesis of Preadmission Screen, Post-Admission Evaluation, and Therapy Evaluations: 67 yo male with a decline in Function s/p acute exacerbation of COPD referred to IRU for ongoing care PMH as per above Patient takes small frequent meals with protein shakes s/p lapband surgery [facility] code 03.9 Etiologic DX COPD myopathy Medical Prognosis: Good Anticipated Length of Stay: 12--18 Modified Independent for adls and mobility skills Anticipated d/c Destination: Home with [facility] CATHY CASTELLANOS MD Apr 09, 2018 20:55
[2018-04-09] MEDS: NYSTATIN ORAL SUSP 5 ML UDC PO SCH (22:40)
[2018-04-09] MEDS: MUPIROCIN 2% OINT 22 GM (BACTROBAN) TUBE TOP SCH (22:40)
[2018-04-10] MEDS: RT-ALBUTEROL SULF 2.5 MG/3 ML PRE-MIX VIAL INH SCH ×3 (04:30→19:07)
[2018-04-10 05:04] VITALS: BP 111/75
[2018-04-10] MEDS: FUROSEMIDE 40 MG (LASIX) TAB PO SCH (06:04)
[2018-04-10] MEDS: NYSTATIN ORAL SUSP 5 ML UDC PO SCH ×4 (06:04→23:19)
[2018-04-10] MEDS: ENOXAPARIN 60 MG/0.6 ML (LOVENOX) SYR SC SCH ×2 (06:04→17:53)
[2018-04-10] MEDS: CATHETER FLUSH 10 ML SYR IV SCH ×3 (06:05→21:24)
[2018-04-10 07:37] VITALS: BP 111/75
[2018-04-10] MEDS: RT-BUDESONIDE NEBS 0.5 MG/2ML (PULMICORT) AMP INH SCH ×2 (07:38→19:07)
[2018-04-10] MEDS: HYDROcodone/APAP 7.5 MG/325 MG (LORTAB, LORCET PLUS) TABLET PO PRN ×3 (08:11→21:23)
[2018-04-10] MEDS: DOCUSATE SODIUM 100 MG (COLACE) CAP PO PRN (08:11)
[2018-04-10] MEDS: MUPIROCIN 2% OINT 22 GM (BACTROBAN) TUBE TOP SCH ×2 (08:11→21:24)
[2018-04-10] MEDS: NYSTATIN CREAM (MYCOSTATIN) 30 GM TUBE TP SCH ×3 (08:11→21:24)
--- NOTE | 2018-04-10 10:01 | Physical Therapy Daily Note ---
PT Daily Note-Current Subjective Pt. states he is tired, has some constipation and so much edema in his LEs and isnt sleeping well. Pain Numeric Pain Scale: 0-No Pain Mental Status Patient Orientation: Normal For Age Transfers Therapy Code Descriptions/Definitions Functional [place] Measure: 0=Not Assessed/NA 4=Minimal Assistance 1=Total Assistance 5=Supervision or Setup 2=Maximal Assistance 6=Modified [place] 3=Moderate Assistance 7=Complete [place] Therapy Quality Codes: 6 Independent with activity with or without an assistive device 5 Patient requires set up or clean up by helper. Patient completes activity by themselves 4 Supervision or touching assist (CGA). [place] provide cues , steadying assist 3 The helper provides less than half the effort to complete the activity 2 The helper provides more than half the effort to complete the activity 1 Dependent. The helper does all the effort to complete an activity 7 Patient refused to complete or attempt activity 9 The patient did not perform the activity before the current illness or injury 88 Not attempted due to Medical conditions or safety concerns Transfers (B, C, W/C) (FIM): 6 Scootin Rollin Supine to/from Sit: 6 Sit to/from Stand: 6 Bed to/from Chair: 6 Gait Training Does the Patient Walk?: Yes Gait (FIM): 5 Distance (FIM): 3=150 ft (160x2, 75) Gait Level of Assist: 5 Gait Persons Needed: 1 Gait Assistive Device: FWW slow, weight bearing moderately on FWW Stair Training Stair Training: Handrails/: uses walker Stairs (FIM): 2 #of Steps: 4 Stairs: Pattern: Step to Level of Assist: 4 "pink step" Exercises Supine Ex: Bridging, Ankle pumps, Heel Slides, Scooting, Straight leg raise, Hip abd/add Supine Reps: 12 Seated Therapy Exercises: Ankle pumps, Sit to stand, Long arc quads, Hip flexion, Hip abd/add Seated Reps: 15 pt. states he cannot roll onto his sides ever since he had gastric sleeve surg NuStep Minutes: 10 NuStep Workload: 3 Assessment Current Status: Good Progress pt. feels that as he can diurese fluid off his LEs he will feel better and move better PT Short Term Goals Short Term Goals Time Frame: Apr 13, 2018 Transfers (B,C,W/C) (FIM): 5 Gait (FIM): 6 Gait Distance Comment: 200' Gait Level of Assist: 6 Gait Assistive Device: FWW PT Half-Way Goals Half-Way Goals PT White Metal Caster Goals Time Frame: Apr 27, 2018 Transfers (B,C,W/C) (FIM): 6 Sit to Lying (QC): 6 Lying-Sitting on Side/Bed(QC): 6 Sit to Stand (QC): 6 Rollin Roll Left to Right (QC): 6 Chair/Otg-jx-Ewquw Xfer(QC): 6 Car Transfer (QC): 6 Gait (FIM): 6 Distance: 300' Walk 10 feet (QC): 6 Walk 10ft-Uneven Surface(QC): 6 Walk 50ft with 2 Turns (QC): 6 Walk 150 ft (QC): 6 Gait Level of Assist: 6 Gait Assistive Device: FWW Stairs (FIM): 2 # of Steps: 4 1 Step (curb) (QC): 4 4 Steps (QC): 4 Stairs Level Of Assist: 5 PT Plan Treatment/Plan Treatment Plan: Continue Plan of Care Treatment Plan: Bed Mobility, Concurrent Therapy, Education, Functional Activity Oren, Functional Strength, Group Therapy, Gait, Safety, Therapeutic Exercise, Transfers Treatment Duration: Apr 27, 2018 Frequency: At least 5 of 7 days/Wk (IRF) Estimated Hrs Per Day: 1.5 hours per day Patient and/or Family Agrees t: Yes Safety Risks/Education Patient Education: Gait Training, Transfer Techniques, Steps, Correct Positioning, Disease Process, Safety Issues Teaching Recipient: Patient Teaching Methods: Demonstration, Discussion Response to Teaching: Verbalize Understanding, Return Demonstration, Reinforcement Needed Time/GCodes Time In: 900 Time Out: 1000 Total Billed Treatment Time: 60 Total Billed Treatment 1,EX25m,GT20m,FA15m G Codes Necessary: SONA Sarah HOSPITAL MONITOR Apr 10, 2018 10:01
[2018-04-10] MEDS: ARFORMOTEROL 15 MCG/2 ML (BROVANA) INH SOLUTIION IH SCH ×2 (10:07→22:14)
--- NOTE | 2018-04-10 10:46 | PM & R (SOAP) Progress Note ---
Subjective This was a face to face visit with the patient. Date Seen by Provider: Apr 08, 2018 Time Seen by Provider: 18:00 Subjective/Events-last exam Patient was seen in his room this evening Patient requesting his home protein shakes which he takes s/p Bariatric sleeve surgery Discussed with RN Patient also request rfid strategist consult.Patient c/o sore throat which may be due to resp treatments will follow up.Patient min assist for gait with walker Review of Systems HEENT: Sore Throat Neurological: Weakness Objective Physician Exam Last Set of Vital Signs Vital Signs Date Time Temp Pulse Resp B/P (MAP) Pulse Ox O2 Delivery O2 Flow Rate FiO2 04/10/18 10:07 90 Room Air 04/10/18 07:37 96 04/10/18 05:04 98.0 18 111/75 (87) 04/07/18 07:57 21 Capillary Refill : I&O Intake and Output 04/10/18 00:00 Intake Total 1800 ml Balance 1800 ml Intake Oral 1800 ml # Voids 7 General: Alert, Oriented X3, Cooperative, No Acute Distress HEENT: Atraumatic, PERRLA, EOMI, Mucous Memb Moist/[place] Neck: Supple, No JVD Lungs: Other (decreased breath sounds) Heart: Regular Rate Abdomen: Normal Bowel Sounds, Soft, No Tenderness Extremities: Other (Plus edema both ankles) Neuro: Other (Sensation decreased slightly to light touch in ankles Strength 3- /5 prox lower limbs 4-/5 distal) Psych/Mental Status: Mental Status NL Results Lab Data Laboratory Tests 04/09/18 06:15: White Blood Count 11.1H, Red Blood Count 3.13L, Hemoglobin 9.4L, Hematocrit 29L , Mean Corpuscular Volume 92, Mean Corpuscular Hemoglobin 30, Mean Corpuscular Hemoglobin Concent 33, Red Cell Distribution Width 14.8H, Platelet Count 133, Mean Platelet Volume 11.8H, Neutrophils (%) (Auto) 81H, Lymphocytes (%) (Auto) 11L, Monocytes (%) (Auto) 8, Eosinophils (%) (Auto) 1, Basophils (%) (Auto) 0, Neutrophils # (Auto) 9.0H, Lymphocytes # (Auto) 1.2, Monocytes # (Auto) 0.9, Eosinophils # (Auto) 0.1, Basophils # (Auto) 0.0, Sodium Level 140, Potassium Level 3.6, Chloride Level 96L, Carbon Dioxide Level 35H, Anion Gap 9, Blood Urea Nitrogen 17, Creatinine 0.99, Estimat Glomerular Filtration Rate > 60, BUN/ Creatinine Ratio 17, Glucose Level 109H, Calcium Level 8.5 Microbiology 04/08/18 MRSA Screen - Final, Complete Assessment/Plan Assessment and Plan COPD myopathy with a resulting decline in functional [place] Acute exacerbation of COPD on steroids-improving Asthma on treatments HTN controlled with meds Chronic back pain HX of bilateral hip surgery ,shoulder surgery HX of bariatric sleeve surgery recently adjust diet Sore throat most likely due to resp treatments will f/u Plan Continue PT/OT Adjust diet as per above F/u re sore throat This note done tardy as had inability to gain access to EMR 04-08-18 due to password issues with new access ICON (1) Myopathy Assessment & Plan: Improving with therapies Status: Acute Co-Morbidities that are continuing to impact the rehab process: (include details ) CATHY CASTELLANOS MD Apr 10, 2018 10:46
--- NOTE | 2018-04-10 11:03 | Occupational Ther Daily Note ---
OT Current Status-Daily Note Subjective Pt in bed, states he isn't feeling well today secondary to constipation. Also states he is tired today. Agrees to therapy. Mental Status/Objective Therapy Code Descriptions/Definitions Functional [place] Measure: 0=Not Assessed/NA 4=Minimal Assistance 1=Total Assistance 5=Supervision or Setup 2=Maximal Assistance 6=Modified [place] 3=Moderate Assistance 7=Complete [place] ADL-Treatment Pt declined shower today, but would like a sponge bath. Pt bathed upper body with set up. Assist was required to bathe lower body and under abdomen. Don pullover shirt with set up. Pt donned underwear and pants with SBA. Stood with good balance during pant hike. Pt required assist to don socks. Sit to stand with modified independence. Gait to restroom without LOB. Pt urinated standing at toilet x2 during session with modified independence. Grooming tasks completed seated at sink. Pt washed hands, shaved, brushed teeth, and combed hair with modified independence. Pt moving slowly and requires increased time for ADL tasks this am. Transfer to chair with modified independence. Therapy Code Descriptions/Definitions Functional [place] Measure: 0=Not Assessed/NA 4=Minimal Assistance 1=Total Assistance 5=Supervision or Setup 2=Maximal Assistance 6=Modified [place] 3=Moderate Assistance 7=Complete [place] Therapy Quality Codes: 6 Independent with activity with or without an assistive device 5 Patient requires set up or clean up by helper. Patient completes activity by themselves 4 Supervision or touching assist (CGA). [place] provide cues , steadying assist 3 The helper provides less than half the effort to complete the activity 2 The helper provides more than half the effort to complete the activity 1 Dependent. The helper does all the effort to complete an activity 7 Patient refused to complete or attempt activity 9 The patient did not perform the activity before the current illness or injury 88 Not attempted due to Medical conditions or safety concerns Grooming (FIM): 6 Oral Hygiene (QC): 6 Bathing (FIM): 3 Upper Body (FIM): 5 Upper Body Dressing (QC): 5 Lower Body Dressing (FIM): 4 Lower Body Dressing (QC): 3 Other Treatment Pt completed bilateral UE exercises to increase strength needed for ADLs and transfers. Pt performed biceps curls, and triceps extension exercises x20 reps using moderate resistance (red) theraband. Rest breaks between exercises. Pt sitting in chair with needs met after session. OT Short Term Goals Short Term Goals Transfers (B,C,W/C) (FIM): 5 1=Demonstrate adherence to instructed precautions during ADL tasks. 2=Patient will verbalize/demonstrate understanding of assistive devices/ modifications for ADL. 3=Patient will improve strength/tolerance for activity to enable patient to perform ADL's. OT Penitentiary Goals Penitentiary Goals Time Frame: Apr 27, 2018 Eating (FIM): 7 Eating (QC): 6 Groomin Oral Hygiene (QC): 6 Bathing(FIM): 6 Shower/Bathe Self (QC): 6 Upper Body Dressing(FIM): 6 Upper Body Dressing (QC): 6 Lower Body Dressing(FIM): 6 Lower Body Dressing (QC): 6 On/Off Footwear (QC): 6 Toileting(FIM): 6 Toileting Hygiene (QC): 6 Toilet/Commode Transfer(FIM): 6 Toilet/Commode Transfer (QC): 6 Shower Transfer(FIM): 6 Additional Goals: 1-Demonstrate ADL Tasks, 2-Verbalize Understanding, 3- ImproveStrength/Oren 1=Demonstrate adherence to instructed precautions during ADL tasks. 2=Patient will verbalize/demonstrate understanding of assistive devices/ modifications for ADL. 3=Patient will improve strength/tolerance for activity to enable patient to perform ADL's. OT Education/Plan Discharge Recommendations Plan/Recommendations: Continue POC Treatment Plan/Plan of Care Patient would benefit from OT for education, treatment and training to promote independence in ADL's, mobility, safety and/or upper extremity function for ADL' s. Plan of Care: ADL Retraining, Functional Mobility, Group Exercise/Act as Ind, UE Funct Exercise/Act Treatment Duration: Apr 27, 2018 Frequency: At least 5 of 7 days/Wk (IRF) Estimated Hrs Per Day: 1.5 hours per day Rehab Potential: Good Time/GCodes Start Time: 08:00 Stop Time: 09:00 Total Time Billed (hr/min): 60 Billed Treatment Time 1 visit, ADLx3(50minutes), EX(10minutes) HI FRITZ OT Apr 10, 2018 11:03
--- NOTE | 2018-04-10 12:25 | PM & R (SOAP) Progress Note ---
Subjective This was a face to face visit with the patient. Time Seen by Provider: 12:00 Subjective/Events-last exam Patient was seen in his room this afternoon He is complaining of constipation He is Modified Independent for transfers Date Identified: Apr 10, 2018 Time Identified: 12:00 Medication Intervention: geraldine carter ordered Review of Systems Gastrointestinal: Constipation Objective Physician Exam Last Set of Vital Signs Vital Signs Date Time Temp Pulse Resp B/P (MAP) Pulse Ox O2 Delivery O2 Flow Rate FiO2 04/10/18 10:07 90 Room Air 04/10/18 07:37 96 04/10/18 05:04 98.0 18 111/75 (87) 04/07/18 07:57 21 Capillary Refill : I&O Intake and Output 04/10/18 00:00 Intake Total 1800 ml Balance 1800 ml Intake Oral 1800 ml # Voids 7 General: Alert, Oriented X3, Cooperative, No Acute Distress HEENT: Atraumatic, PERRLA, EOMI, Mucous Memb Moist/[place] Neck: Supple, No JVD Lungs: Other (decreased breath sounds) Heart: Regular Rate Abdomen: Normal Bowel Sounds, Soft, No Tenderness Extremities: Other (Plus edema both ankles) Neuro: Other (Sensation decreased slightly to light touch in ankles Strength 3- /5 prox lower limbs 4-/5 distal) Psych/Mental Status: Mental Status NL Results Lab Data Laboratory Tests 04/09/18 06:15: White Blood Count 11.1H, Red Blood Count 3.13L, Hemoglobin 9.4L, Hematocrit 29L , Mean Corpuscular Volume 92, Mean Corpuscular Hemoglobin 30, Mean Corpuscular Hemoglobin Concent 33, Red Cell Distribution Width 14.8H, Platelet Count 133, Mean Platelet Volume 11.8H, Neutrophils (%) (Auto) 81H, Lymphocytes (%) (Auto) 11L, Monocytes (%) (Auto) 8, Eosinophils (%) (Auto) 1, Basophils (%) (Auto) 0, Neutrophils # (Auto) 9.0H, Lymphocytes # (Auto) 1.2, Monocytes # (Auto) 0.9, Eosinophils # (Auto) 0.1, Basophils # (Auto) 0.0, Sodium Level 140, Potassium Level 3.6, Chloride Level 96L, Carbon Dioxide Level 35H, Anion Gap 9, Blood Urea Nitrogen 17, Creatinine 0.99, Estimat Glomerular Filtration Rate > 60, BUN/ Creatinine Ratio 17, Glucose Level 109H, Calcium Level 8.5 Microbiology 04/08/18 MRSA Screen - Final, Complete Assessment/Plan Assessment and Plan COPD myopathy Sore throat gradually improving Strep screen pending Constipation meds adjusted HTN controlled with meds Asthma on treatments Chronic back pain HX of bilateral hipsurgery and shoulder surgery Hx of recent bariatric surgery on modified diet Plan Continue PT/OT Team Conference tomorrow 04-11-18 [place] for constipation (1) Myopathy Status: Acute Co-Morbidities that are continuing to impact the rehab process: (include details ) CATYH CASTELLANOS MD Apr 10, 2018 12:25
[2018-04-10] MEDS ORDERED: SENNA W/DOCUSATE (SENOKOT S) TABLET PO PRN (12:30)
--- NOTE | 2018-04-10 12:58 | Occupational Ther Daily Note ---
OT Current Status-Daily Note Subjective Pt resting in bed, agrees to treatment. Pt reports 8/10 back pain. Mental Status/Objective Therapy Code Descriptions/Definitions Functional [place] Measure: 0=Not Assessed/NA 4=Minimal Assistance 1=Total Assistance 5=Supervision or Setup 2=Maximal Assistance 6=Modified [place] 3=Moderate Assistance 7=Complete [place] ADL-Treatment Pt supine to sit with modified independence. Sit to stand with modified independence. Gait to restroom without LOB. Pt stood at toilet to urinate with modified independence. Stood at sink to wash hands without assistance. Therapy Code Descriptions/Definitions Functional [place] Measure: 0=Not Assessed/NA 4=Minimal Assistance 1=Total Assistance 5=Supervision or Setup 2=Maximal Assistance 6=Modified [place] 3=Moderate Assistance 7=Complete [place] Therapy Quality Codes: 6 Independent with activity with or without an assistive device 5 Patient requires set up or clean up by helper. Patient completes activity by themselves 4 Supervision or touching assist (CGA). [place] provide cues , steadying assist 3 The helper provides less than half the effort to complete the activity 2 The helper provides more than half the effort to complete the activity 1 Dependent. The helper does all the effort to complete an activity 7 Patient refused to complete or attempt activity 9 The patient did not perform the activity before the current illness or injury 88 Not attempted due to Medical conditions or safety concerns Other Treatment Gait to therapy gym with FWW, no LOB noted. Arm bike [id number] to increase overall strength and activity tolerance needed for functional tasks. Pt completed activity with minimal resistance and slow pace. One rest break taken during task. Pt completed putty activity with bilateral hands to increase port surveyor/ pinch strength for ADLs. Pt returned to room, completed sit to supine with modified independence. Pt resting in bed with needs met after session. OT Short Term Goals Short Term Goals Transfers (B,C,W/C) (FIM): 5 1=Demonstrate adherence to instructed precautions during ADL tasks. 2=Patient will verbalize/demonstrate understanding of assistive devices/ modifications for ADL. 3=Patient will improve strength/tolerance for activity to enable patient to perform ADL's. OT [facility] Goals [employer] Labor Supervisor Goals Time Frame: Apr 27, 2018 Eating (FIM): 7 Eating (QC): 6 Groomin Oral Hygiene (QC): 6 Bathing(FIM): 6 Shower/Bathe Self (QC): 6 Upper Body Dressing(FIM): 6 Upper Body Dressing (QC): 6 Lower Body Dressing(FIM): 6 Lower Body Dressing (QC): 6 On/Off Footwear (QC): 6 Toileting(FIM): 6 Toileting Hygiene (QC): 6 Toilet/Commode Transfer(FIM): 6 Toilet/Commode Transfer (QC): 6 Shower Transfer(FIM): 6 Additional Goals: 1-Demonstrate ADL Tasks, 2-Verbalize Understanding, 3- ImproveStrength/Oren 1=Demonstrate adherence to instructed precautions during ADL tasks. 2=Patient will verbalize/demonstrate understanding of assistive devices/ modifications for ADL. 3=Patient will improve strength/tolerance for activity to enable patient to perform ADL's. OT Education/Plan Discharge Recommendations Plan/Recommendations: Continue POC Treatment Plan/Plan of Care Patient would benefit from OT for education, treatment and training to promote independence in ADL's, mobility, safety and/or upper extremity function for ADL' s. Plan of Care: ADL Retraining, Functional Mobility, Group Exercise/Act as Ind, UE Funct Exercise/Act Treatment Duration: Apr 27, 2018 Frequency: At least 5 of 7 days/Wk (IRF) Estimated Hrs Per Day: 1.5 hours per day Rehab Potential: Good Time/GCodes Start Time: 11:20 Stop Time: 11:50 Total Time Billed (hr/min): 30 Billed Treatment Time 1 visit, EXx2(30minutes) HI FRITZ OT Apr 10, 2018 12:58
--- NOTE | 2018-04-10 13:18 | Physical Therapy Daily Note ---
PT Daily Note-Current Subjective Pt. states he feels a little better as he has urinated and rested and notes a little relief Pain Numeric Pain Scale: 0-No Pain Mental Status Patient Orientation: Normal For Age Transfers Therapy Code Descriptions/Definitions Functional [place] Measure: 0=Not Assessed/NA 4=Minimal Assistance 1=Total Assistance 5=Supervision or Setup 2=Maximal Assistance 6=Modified [place] 3=Moderate Assistance 7=Complete [place] Therapy Quality Codes: 6 Independent with activity with or without an assistive device 5 Patient requires set up or clean up by helper. Patient completes activity by themselves 4 Supervision or touching assist (CGA). [place] provide cues , steadying assist 3 The helper provides less than half the effort to complete the activity 2 The helper provides more than half the effort to complete the activity 1 Dependent. The helper does all the effort to complete an activity 7 Patient refused to complete or attempt activity 9 The patient did not perform the activity before the current illness or injury 88 Not attempted due to Medical conditions or safety concerns in out bed and sit to stand all Mod I to SBA Gait Training Gait Assistive Device: FWW 30ft x 2 SBA Exercises Supine Ex: Bridging, Ankle pumps, Quad Set, Rolling, Glut sets, Heel Slides, Scooting, Straight leg raise, Hip abd/add Supine Reps: 15 Assessment Current Status: Good Progress PT Short Term Goals Short Term Goals Time Frame: Apr 13, 2018 Transfers (B,C,W/C) (FIM): 5 Gait (FIM): 6 Gait Distance Comment: 200' Gait Level of Assist: 6 Gait Assistive Device: FWW PT Pickle Processor Goals Pickle Processor Goals PT Pickle Processor Goals Time Frame: Apr 27, 2018 Transfers (B,C,W/C) (FIM): 6 Sit to Lying (QC): 6 Lying-Sitting on Side/Bed(QC): 6 Sit to Stand (QC): 6 Rollin Roll Left to Right (QC): 6 Chair/Bpo-qa-Msuue Xfer(QC): 6 Car Transfer (QC): 6 Gait (FIM): 6 Distance: 300' Walk 10 feet (QC): 6 Walk 10ft-Uneven Surface(QC): 6 Walk 50ft with 2 Turns (QC): 6 Walk 150 ft (QC): 6 Gait Level of Assist: 6 Gait Assistive Device: FWW Stairs (FIM): 2 # of Steps: 4 1 Step (curb) (QC): 4 4 Steps (QC): 4 Stairs Level Of Assist: 5 PT Plan Treatment/Plan Treatment Plan: Continue Plan of Care Treatment Plan: Bed Mobility, Concurrent Therapy, Education, Functional Activity Oren, Functional Strength, Group Therapy, Gait, Safety, Therapeutic Exercise, Transfers Treatment Duration: Apr 27, 2018 Frequency: At least 5 of 7 days/Wk (IRF) Estimated Hrs Per Day: 1.5 hours per day Patient and/or Family Agrees t: Yes Safety Risks/Education Patient Education: Gait Training, Transfer Techniques, Correct Positioning, Disease Process, Safety Issues Teaching Recipient: Patient Teaching Methods: Discussion Response to Teaching: Verbalize Understanding, Return Demonstration, Reinforcement Needed Time/GCodes Time In: 1300 Time Out: 1315 Total Billed Treatment Time: 15 Total Billed Treatment 1,EX15m G Codes Necessary: SONA Sarah MEDICAL DEVICE SALES REPRESENTATIVE Apr 10, 2018 13:18
[2018-04-10 17:33] VITALS: BP 122/66
[2018-04-11 05:01] VITALS: BP 134/78
[2018-04-11] MEDS: CATHETER FLUSH 10 ML SYR IV SCH ×3 (06:11→20:22)
[2018-04-11] MEDS: ENOXAPARIN 60 MG/0.6 ML (LOVENOX) SYR SC SCH (06:11)
[2018-04-11] MEDS: NYSTATIN ORAL SUSP 5 ML UDC PO SCH ×4 (06:11→23:26)
[2018-04-11] MEDS: FUROSEMIDE 40 MG (LASIX) TAB PO SCH (06:11)
[2018-04-11] MEDS: RT-BUDESONIDE NEBS 0.5 MG/2ML (PULMICORT) AMP INH SCH (07:34)
[2018-04-11] MEDS: RT-ALBUTEROL SULF 2.5 MG/3 ML PRE-MIX VIAL INH SCH (07:34)
[2018-04-11] MEDS: MUPIROCIN 2% OINT 22 GM (BACTROBAN) TUBE TOP SCH ×2 (08:33→20:22)
[2018-04-11] MEDS: NYSTATIN CREAM (MYCOSTATIN) 30 GM TUBE TP SCH ×3 (08:34→20:22)
--- NOTE | 2018-04-11 08:36 | PM & R (SOAP) Progress Note ---
Subjective This was a face to face visit with the patient. Date Seen by Provider: Apr 11, 2018 Time Seen by Provider: 08:05 Subjective/Events-last exam Patient was seen in his room this AM Patient SBA for transfers Objective Physician Exam Last Set of Vital Signs Vital Signs Date Time Temp Pulse Resp B/P (MAP) Pulse Ox O2 Delivery O2 Flow Rate FiO2 04/11/18 07:36 92 Room Air 04/11/18 05:01 98.2 93 18 134/78 (96) 04/07/18 07:57 21 Capillary Refill : I&O Intake and Output 04/11/18 00:00 Intake Total 1000 ml Balance 1000 ml Intake Oral 1000 ml # Voids 7 # Bowel Movements 1 General: Alert, Oriented X3, Cooperative, No Acute Distress HEENT: Atraumatic, PERRLA, EOMI, Mucous Memb Moist/[place] Neck: Supple, No JVD Lungs: Other (decreased breath sounds) Heart: Regular Rate Abdomen: Normal Bowel Sounds, Soft, No Tenderness Extremities: Other (Plus edema both ankles) Neuro: Other (Sensation decreased slightly to light touch in ankles Strength 3- /5 prox lower limbs 4-/5 distal) Psych/Mental Status: Mental Status NL Results Lab Data Laboratory Tests 04/09/18 06:15: White Blood Count 11.1H, Red Blood Count 3.13L, Hemoglobin 9.4L, Hematocrit 29L , Mean Corpuscular Volume 92, Mean Corpuscular Hemoglobin 30, Mean Corpuscular Hemoglobin Concent 33, Red Cell Distribution Width 14.8H, Platelet Count 133, Mean Platelet Volume 11.8H, Neutrophils (%) (Auto) 81H, Lymphocytes (%) (Auto) 11L, Monocytes (%) (Auto) 8, Eosinophils (%) (Auto) 1, Basophils (%) (Auto) 0, Neutrophils # (Auto) 9.0H, Lymphocytes # (Auto) 1.2, Monocytes # (Auto) 0.9, Eosinophils # (Auto) 0.1, Basophils # (Auto) 0.0, Sodium Level 140, Potassium Level 3.6, Chloride Level 96L, Carbon Dioxide Level 35H, Anion Gap 9, Blood Urea Nitrogen 17, Creatinine 0.99, Estimat Glomerular Filtration Rate > 60, BUN/ Creatinine Ratio 17, Glucose Level 109H, Calcium Level 8.5 Microbiology 04/08/18 MRSA Screen - Final, Complete Assessment/Plan Assessment and Plan COPD myopathy Sore throat improving Constipation improved HTN controlled with meds Asthma on resp treatments Chronic back pain Hx of bilateral hip OA and shoulder surgery S/P [place] surgery rt 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
[2018-04-11] MEDS: HYDROcodone/APAP 7.5 MG/325 MG (LORTAB, LORCET PLUS) TABLET PO PRN ×3 (09:14→23:32)
--- NOTE | 2018-04-11 10:00 | Physical Therapy Daily Note ---
PT Daily Note-Current Subjective Pt. wants to move around, toilet etc. Pain Numeric Pain Scale: 0-No Pain Mental Status Patient Orientation: Normal For Age Transfers Therapy Code Descriptions/Definitions Functional [place] Measure: 0=Not Assessed/NA 4=Minimal Assistance 1=Total Assistance 5=Supervision or Setup 2=Maximal Assistance 6=Modified [place] 3=Moderate Assistance 7=Complete [place] Therapy Quality Codes: 6 Independent with activity with or without an assistive device 5 Patient requires set up or clean up by helper. Patient completes activity by themselves 4 Supervision or touching assist (CGA). [place] provide cues , steadying assist 3 The helper provides less than half the effort to complete the activity 2 The helper provides more than half the effort to complete the activity 1 Dependent. The helper does all the effort to complete an activity 7 Patient refused to complete or attempt activity 9 The patient did not perform the activity before the current illness or injury 88 Not attempted due to Medical conditions or safety concerns in out bed and on off toilet Mod I Gait Training Gait Assistive Device: FWW pt. used FWW approx 175ft and no AD for approx 50ft x 2, all with no LOB , no incident Assessment Current Status: Good Progress PT Short Term Goals Short Term Goals Time Frame: Apr 13, 2018 Transfers (B,C,W/C) (FIM): 5 Gait (FIM): 6 Gait Distance Comment: 200' Gait Level of Assist: 6 Gait Assistive Device: FWW PT Wrapper Cashier Goals Wrapper Cashier Goals PT Shelter Goals Time Frame: Apr 27, 2018 Transfers (B,C,W/C) (FIM): 6 Sit to Lying (QC): 6 Lying-Sitting on Side/Bed(QC): 6 Sit to Stand (QC): 6 Rollin Roll Left to Right (QC): 6 Chair/Irw-rt-Ylltk Xfer(QC): 6 Car Transfer (QC): 6 Gait (FIM): 6 Distance: 300' Walk 10 feet (QC): 6 Walk 10ft-Uneven Surface(QC): 6 Walk 50ft with 2 Turns (QC): 6 Walk 150 ft (QC): 6 Gait Level of Assist: 6 Gait Assistive Device: FWW Stairs (FIM): 2 # of Steps: 4 1 Step (curb) (QC): 4 4 Steps (QC): 4 Stairs Level Of Assist: 5 PT Plan Treatment/Plan Treatment Plan: Continue Plan of Care Treatment Plan: Bed Mobility, Concurrent Therapy, Education, Functional Activity Oren, Functional Strength, Group Therapy, Gait, Safety, Therapeutic Exercise, Transfers Treatment Duration: Apr 27, 2018 Frequency: At least 5 of 7 days/Wk (IRF) Estimated Hrs Per Day: 1.5 hours per day Patient and/or Family Agrees t: Yes Safety Risks/Education Patient Education: Gait Training, Transfer Techniques, Disease Process, Safety Issues Teaching Recipient: Patient Teaching Methods: Demonstration, Discussion Response to Teaching: Verbalize Understanding, Return Demonstration Time/GCodes Time In: 1350 Time Out: 1405 Total Billed Treatment Time: 15 Total Billed Treatment 1,GT15m G Codes Necessary: SONA Sarah INDUSTRIAL ENGINEERING Apr 11, 2018 10:00
--- NOTE | 2018-04-11 10:07 | Physical Therapy Daily Note ---
PT Daily Note-Current Subjective Pt. states he still doesnt feel well and doesnt really feel like moving around but he will try. "My legs are still so full of fluid that it makes moving around so hard" Pain Numeric Pain Scale: 0-No Pain Mental Status Patient Orientation: Normal For Age Transfers Therapy Code Descriptions/Definitions Functional [place] Measure: 0=Not Assessed/NA 4=Minimal Assistance 1=Total Assistance 5=Supervision or Setup 2=Maximal Assistance 6=Modified [place] 3=Moderate Assistance 7=Complete [place] Therapy Quality Codes: 6 Independent with activity with or without an assistive device 5 Patient requires set up or clean up by helper. Patient completes activity by themselves 4 Supervision or touching assist (CGA). [place] provide cues , steadying assist 3 The helper provides less than half the effort to complete the activity 2 The helper provides more than half the effort to complete the activity 1 Dependent. The helper does all the effort to complete an activity 7 Patient refused to complete or attempt activity 9 The patient did not perform the activity before the current illness or injury 88 Not attempted due to Medical conditions or safety concerns Transfers (B, C, W/C) (FIM): 6 Scootin Rollin Supine to/from Sit: 6 Sit to/from Stand: 6 Bed to/from Chair: 6 Gait Training Does the Patient Walk?: Yes Gait (FIM): 6 Distance (FIM): 3=150 ft (200x2) Gait Level of Assist: 6 Gait Persons Needed: 0 Gait Assistive Device: FWW (parts analyst no AD) pt. near up ad ernie status Exercises Supine Ex: Bridging, Ankle pumps, Quad Set, Rolling, Glut sets, Heel Slides, Short Arc Quads, Scooting, Straight leg raise, Hip abd/add Supine Reps: 15 Seated Therapy Exercises: Ankle pumps, Sit to stand, Long arc quads, Hip flexion, Hip abd/add Seated Reps: 15 Standing: Hip Abduction, Hamstring curls, Heel/toe raises Standing Reps: 12 NuStep Minutes: 10 NuStep Workload: 2 Assessment Current Status: Good Progress BP 110/67, HR 70, O2 sats 96% PT Short Term Goals Short Term Goals Time Frame: Apr 13, 2018 Transfers (B,C,W/C) (FIM): 5 Gait (FIM): 6 Gait Distance Comment: 200' Gait Level of Assist: 6 Gait Assistive Device: FWW PT Jail Goals Jail Goals PT Corporation Secretary Goals Time Frame: Apr 27, 2018 Transfers (B,C,W/C) (FIM): 6 Sit to Lying (QC): 6 Lying-Sitting on Side/Bed(QC): 6 Sit to Stand (QC): 6 Rollin Roll Left to Right (QC): 6 Chair/Gte-lt-Mlcue Xfer(QC): 6 Car Transfer (QC): 6 Gait (FIM): 6 Distance: 300' Walk 10 feet (QC): 6 Walk 10ft-Uneven Surface(QC): 6 Walk 50ft with 2 Turns (QC): 6 Walk 150 ft (QC): 6 Gait Level of Assist: 6 Gait Assistive Device: FWW Stairs (FIM): 2 # of Steps: 4 1 Step (curb) (QC): 4 4 Steps (QC): 4 Stairs Level Of Assist: 5 PT Plan Treatment/Plan Treatment Plan: Continue Plan of Care Treatment Plan: Bed Mobility, Concurrent Therapy, Education, Functional Activity Oren, Functional Strength, Group Therapy, Gait, Safety, Therapeutic Exercise, Transfers Treatment Duration: Apr 27, 2018 Frequency: At least 5 of 7 days/Wk (IRF) Estimated Hrs Per Day: 1.5 hours per day Patient and/or Family Agrees t: Yes Safety Risks/Education Patient Education: Gait Training, Transfer Techniques, Correct Positioning, Disease Process, Safety Issues Teaching Recipient: Patient Teaching Methods: Demonstration, Discussion Response to Teaching: Verbalize Understanding, Return Demonstration, Reinforcement Needed Time/GCodes Time In: 900 Time Out: 1000 Total Billed Treatment Time: 60 Total Billed Treatment 1,GT25m,FA15m,EX20m G Codes Necessary: SONA Sarah INCOME TAX ADMINISTRATOR Apr 11, 2018 10:07
[2018-04-11] MEDS: ARFORMOTEROL 15 MCG/2 ML (BROVANA) INH SOLUTIION IH SCH (10:52)
--- NOTE | 2018-04-11 12:52 | Occupational Ther Daily Note ---
OT Current Status-Daily Note Subjective Pt agrees to treatment. Reports 9/10 back pain. Pt present and pt requested pain meds. Mental Status/Objective Therapy Code Descriptions/Definitions Functional [place] Measure: 0=Not Assessed/NA 4=Minimal Assistance 1=Total Assistance 5=Supervision or Setup 2=Maximal Assistance 6=Modified [place] 3=Moderate Assistance 7=Complete [place] ADL-Treatment Pt in restroom when therapist arrives. Pt requires assist for hygiene. Able to pull pants up without assist. Pt declined shower today, requests sponge bath only. Pt doffed clothing with SBA. Uses dressing stick to doff socks. Pt able to wash bilateral UE and chest. Requires assist to wash/dry under abdomen. Uses long handled sponge to wash bilateral lower legs. Don pullover shirt with set up. Pt donned underwear and pants with SBA. Reviewed use of sock aid. Pt then able to don with SBA. Increased time required to complete ADLs. Pt fatigues with activity and requires occasional rest breaks throughout treatment. Therapy Code Descriptions/Definitions Functional [place] Measure: 0=Not Assessed/NA 4=Minimal Assistance 1=Total Assistance 5=Supervision or Setup 2=Maximal Assistance 6=Modified [place] 3=Moderate Assistance 7=Complete [place] Therapy Quality Codes: 6 Independent with activity with or without an assistive device 5 Patient requires set up or clean up by helper. Patient completes activity by themselves 4 Supervision or touching assist (CGA). [place] provide cues , steadying assist 3 The helper provides less than half the effort to complete the activity 2 The helper provides more than half the effort to complete the activity 1 Dependent. The helper does all the effort to complete an activity 7 Patient refused to complete or attempt activity 9 The patient did not perform the activity before the current illness or injury 88 Not attempted due to Medical conditions or safety concerns Bathing (FIM): 3 Shower/Bathe Self (QC): 3 Upper Body (FIM): 5 Upper Body Dressing (QC): 5 Lower Body Dressing (FIM): 5 Lower Body Dressing (QC): 4 On/Off Footwear (QC): 4 Toileting (FIM): 3 Toileting Hygiene (QC): 3 Toilet/Commode Transfer (FIM): 5 Other Treatment Pt completed bilateral UE exercises to increase strength needed for ADLs and transfers. Pt performed 4 exercises x20 reps with moderate resistance (red) theraband with exercises between exercises. Pt transferred to bed. Sit to supine with modified independence. Pt resting in bed with needs met after session. Education OT Patient Education: Modified ADL techniques Teaching Recipient: Patient Teaching Methods: Demonstration Response to Teaching: Return Demonstration OT Short Term Goals Short Term Goals Transfers (B,C,W/C) (FIM): 5 1=Demonstrate adherence to instructed precautions during ADL tasks. 2=Patient will verbalize/demonstrate understanding of assistive devices/ modifications for ADL. 3=Patient will improve strength/tolerance for activity to enable patient to perform ADL's. OT Relay Mechanic Goals Detention Goals Time Frame: Apr 27, 2018 Eating (FIM): 7 Eating (QC): 6 Groomin Oral Hygiene (QC): 6 Bathing(FIM): 6 Shower/Bathe Self (QC): 6 Upper Body Dressing(FIM): 6 Upper Body Dressing (QC): 6 Lower Body Dressing(FIM): 6 Lower Body Dressing (QC): 6 On/Off Footwear (QC): 6 Toileting(FIM): 6 Toileting Hygiene (QC): 6 Toilet/Commode Transfer(FIM): 6 Toilet/Commode Transfer (QC): 6 Shower Transfer(FIM): 6 Additional Goals: 1-Demonstrate ADL Tasks, 2-Verbalize Understanding, 3- ImproveStrength/Oren 1=Demonstrate adherence to instructed precautions during ADL tasks. 2=Patient will verbalize/demonstrate understanding of assistive devices/ modifications for ADL. 3=Patient will improve strength/tolerance for activity to enable patient to perform ADL's. OT Education/Plan Discharge Recommendations Plan/Recommendations: Continue POC Treatment Plan/Plan of Care Patient would benefit from OT for education, treatment and training to promote independence in ADL's, mobility, safety and/or upper extremity function for ADL' s. Plan of Care: ADL Retraining, Functional Mobility, Group Exercise/Act as Ind, UE Funct Exercise/Act Treatment Duration: Apr 27, 2018 Frequency: At least 5 of 7 days/Wk (IRF) Estimated Hrs Per Day: 1.5 hours per day Rehab Potential: Good Time/GCodes Start Time: 08:00 Stop Time: 09:00 Total Time Billed (hr/min): 60 Billed Treatment Time 1 visit, ADLx3(45minutes), EX(15minutes) HI FRITZ OT Apr 11, 2018 12:52
--- NOTE | 2018-04-11 13:54 | Occupational Ther Daily Note ---
OT Current Status-Daily Note Subjective Pt in bed, agrees to treatment. Mental Status/Objective Therapy Code Descriptions/Definitions Functional [place] Measure: 0=Not Assessed/NA 4=Minimal Assistance 1=Total Assistance 5=Supervision or Setup 2=Maximal Assistance 6=Modified [place] 3=Moderate Assistance 7=Complete [place] ADL-Treatment Supine to sit with modified independence. Pt donned shirt without assistance. Sit to stand with modified independence. Pt performed gait to shower room with FWW. Education provided regarding use of shower bench/chair for safe transfers. Pt was shown a tub transfer bench and shower chair. Pt states understanding of education and states he will think about these options for home use. Therapy Code Descriptions/Definitions Functional [place] Measure: 0=Not Assessed/NA 4=Minimal Assistance 1=Total Assistance 5=Supervision or Setup 2=Maximal Assistance 6=Modified [place] 3=Moderate Assistance 7=Complete [place] Therapy Quality Codes: 6 Independent with activity with or without an assistive device 5 Patient requires set up or clean up by helper. Patient completes activity by themselves 4 Supervision or touching assist (CGA). [place] provide cues , steadying assist 3 The helper provides less than half the effort to complete the activity 2 The helper provides more than half the effort to complete the activity 1 Dependent. The helper does all the effort to complete an activity 7 Patient refused to complete or attempt activity 9 The patient did not perform the activity before the current illness or injury 88 Not attempted due to Medical conditions or safety concerns Other Treatment Gait to therapy gym with FWW, no LOB noted. Pt completed arm bike [id number] to increase overall strength and activity tolerance needed for functional tasks. Pt completed activity with minimal resistance and slow pace. No rest breaks needed. Pt returned to room, transferred to bed, sit to supine with modified independence. Pt resting in bed with needs met after session. OT Short Term Goals Short Term Goals Transfers (B,C,W/C) (FIM): 5 1=Demonstrate adherence to instructed precautions during ADL tasks. 2=Patient will verbalize/demonstrate understanding of assistive devices/ modifications for ADL. 3=Patient will improve strength/tolerance for activity to enable patient to perform ADL's. OT Communications Media Professor Goals Communications Media Professor Goals Time Frame: Apr 27, 2018 Eating (FIM): 7 Eating (QC): 6 Groomin Oral Hygiene (QC): 6 Bathing(FIM): 6 Shower/Bathe Self (QC): 6 Upper Body Dressing(FIM): 6 Upper Body Dressing (QC): 6 Lower Body Dressing(FIM): 6 Lower Body Dressing (QC): 6 On/Off Footwear (QC): 6 Toileting(FIM): 6 Toileting Hygiene (QC): 6 Toilet/Commode Transfer(FIM): 6 Toilet/Commode Transfer (QC): 6 Shower Transfer(FIM): 6 Additional Goals: 1-Demonstrate ADL Tasks, 2-Verbalize Understanding, 3- ImproveStrength/Oren 1=Demonstrate adherence to instructed precautions during ADL tasks. 2=Patient will verbalize/demonstrate understanding of assistive devices/ modifications for ADL. 3=Patient will improve strength/tolerance for activity to enable patient to perform ADL's. OT Education/Plan Discharge Recommendations Plan/Recommendations: Continue POC Treatment Plan/Plan of Care Patient would benefit from OT for education, treatment and training to promote independence in ADL's, mobility, safety and/or upper extremity function for ADL' s. Plan of Care: ADL Retraining, Functional Mobility, Group Exercise/Act as Ind, UE Funct Exercise/Act Treatment Duration: Apr 27, 2018 Frequency: At least 5 of 7 days/Wk (IRF) Estimated Hrs Per Day: 1.5 hours per day Rehab Potential: Good Time/GCodes Start Time: 11:00 Stop Time: 11:30 Total Time Billed (hr/min): 30 Billed Treatment Time 1 visit, ADL(15minutes), EX(15minutes) HI FRITZ OT Apr 11, 2018 13:54
--- NOTE | 2018-04-11 14:22 | Consultation (CHS) ---
HPI History of Present Illness: 67 yo male admitted to inpatient rehab after hospitalization for COPD exacerbation with debility. However, illness started previous to this- he had gastric sleeve done 12/2017 and that was complicated post-operatively by an episode of syncope which sent him to the hospital in [place] where he had cholecystectomy for apparently gallstone pancreatitis. He was re-admitted here in [place] with recurrent pancreatitis which was complicated by renal insufficiency and anemia. He was ultimately discharged home, but after only about a week he was seen in follow-up at clinic and had wheezing and difficulty ambulating. He relates most of his difficulty ambulating to swelling in his legs and is frustrated that this has not seemed to improve. He had an echocardiogram done during his stay for COPD exacerbation which was limited but showed normal EF and he was started on lasix which apparently resulted in some diuresis but minimal improvement in his leg swelling. Source: patient Date seen by provider: Apr 11, 2018 Time Seen by Provider: 10:30 Attending Physician Karson Mora MD PCP Dwight Perez MD Consult Date of Admission Apr 06, 2018 at 10:19 Home Medications Home Medications Reviewed patient Home Medication Reconciliation performed by pharmacy medication reconciliations dispensary technician and/or nursing. Patients Allergies have been reviewed. Allergies Coded Allergies: No Known Drug Allergies (Unverified , 03/20/17) [id number] Hx Patient Social History Smoking Status: Former Smoker Former smoker/When Quit: May 08, 2010 Type Used: Cigarettes Recent Foreign Travel: No Contact w/other who traveled: No Recent Hopitalizations: No Recent Infectious Disease Expo: No Immunizations Up To Date Tetanus Booster (TDap): Unknown Date of Pneumonia Vaccine: Feb 27, 2017 Date of Influenza Vaccine: Feb 05, 2018 Past Medical History 1. COPD 2. Asthma 3. HTN 4. Chronic Back Pain Surgical HX: 1. R Shoulder 2. Bilateral Hips 3. Bariatric Sleeve---January 02, 2018 4. Cholecystectomy Family Medical History Significant Family History: Cancer, CAD Over 55 Years Old, Hypertension Family History: Alzheimer's disease PATERNAL GRANDMOTHER Arthritis 19 MOTHER Cardiovascular disease 19 MOTHER MATERNAL GRANDMOTHER MATERNAL GRANDFATHER PATERNAL GRANDFATHER Hypertension 19 MOTHER Neoplasm 19 FATHER (LUNG CANCER) Review of Systems ([facility]) Constitutional: weakness EENTM: no symptoms reported Respiratory: short of breath (reports chronic and baseline) Cardiovascular: No chest pain Gastrointestinal: no symptoms reported Genitourinary: no symptoms reported Musculoskeletal: back pain (mid) Psychiatric/Neurological: No Symptoms Reported Physical Exam-([facility]) Physical Exam Vital Signs VS - Last 72 Hours, by Label 04/08/18 04/08/18 04/08/18 04/08/18 15:21 17:50 19:09 20:45 Temp 98.4 Pulse 95 Resp 18 B/P (MAP) 113/73 (86) Pulse Ox 91 93 92 O2 Delivery Room Air Room Air Room Air Room Air 04/08/18 04/08/18 04/09/18 04/09/18 21:52 21:58 01:45 05:06 Temp 98.2 Pulse 91 Resp 18 B/P (MAP) 121/76 (91) Pulse Ox 90 92 93 O2 Delivery Room Air Room Air Room Air Room Air 04/09/18 04/09/18 04/09/18 04/09/18 06:35 06:42 08:34 10:49 Pulse Ox 92 92 92 O2 Delivery Room Air Room Air Room Air Room Air 04/09/18 04/09/18 04/09/18 04/09/18 14:04 15:41 18:34 21:38 Temp 96.9 Pulse 95 Resp 14 B/P (MAP) 123/77 (92) Pulse Ox 93 91 94 O2 Delivery Room Air Room Air Room Air Room Air 04/09/18 04/10/18 04/10/18 04/10/18 22:32 05:04 07:37 07:37 Temp 98.0 Pulse 99 96 Resp 18 B/P (MAP) 111/75 (87) Pulse Ox 92 92 92 92 O2 Delivery Room Air Room Air Room Air 04/10/18 04/10/18 04/10/18 04/10/18 07:43 08:28 10:07 17:33 Temp 98.5 Pulse 91 Resp 18 B/P (MAP) 122/66 (84) Pulse Ox 92 90 94 O2 Delivery Room Air Room Air Room Air 04/10/18 04/10/18 04/10/18 04/10/18 19:08 19:13 21:17 22:14 Pulse Ox 94 91 O2 Delivery Room Air Room Air Room Air Room Air 04/11/18 04/11/18 04/11/18 04/11/18 05:01 07:36 08:00 10:54 Temp 98.2 Pulse 93 Resp 18 B/P (MAP) 134/78 (96) Pulse Ox 94 92 93 O2 Delivery Room Air Room Air Room Air Room Air Capillary Refill : General Appearance: no apparent distress HEENT: other (mild proptosis left eye compared to right) Respiratory: lungs clear, normal breath sounds Cardiovascular: regular rate, rhythm, no murmur Gastrointestinal: normal bowel sounds, non tender, soft Extremities: pedal edema (2+ to above knees) Neurologic/Psychiatric: alert, normal mood/affect Skin: normal color, warm/dry Assessment/Plan Assessment/Plan (1) Hypertension Status: Chronic Assessment & Plan: Holding home lisinopril with normal BP, monitor. Qualifiers: Qualified Codes: I10 - Essential (primary) hypertension (2) COPD (chronic obstructive pulmonary disease) Status: Chronic Assessment & Plan: No evidence of exacerbation at this time, continue home medications (3) Anxiety Status: Chronic Assessment & Plan: Continued on alprazolam at decreased dose to avoid SALES MANAGEMENT TRAINEE/ respiratory depression with combination of benzo and hydrocodone. (4) Insomnia Status: Chronic Assessment & Plan: On Ambien at home, recommend d/c on discharge given combination of sedating medications he has been on. Qualifiers: Qualified Codes: F51.01 - Primary insomnia (5) Anemia Status: Acute Assessment & Plan: Unknown etiology, trending down, will recheck along with iron studies, peripheral smear, retic count. (6) Weakness Status: Acute Assessment & Plan: Management per Rehab (7) Edema Assessment & Plan: Echo unremarkable, on lasix 40 mg daily already. Add ALPHONSO hose. Consider increasing lasix dose if needed. Qualifiers: Qualified Codes: R60.0 - Localized edema Clinical Quality Measures DVT/VTE Risk/Contraindication: Risk Factor Score Per Nursin RFS Level Per Nursing on Admit: 4+=Very High DARSHAN ATKINSON MD Apr 11, 2018 14:22
[2018-04-11] MEDS ORDERED: FUROSEMIDE 40 MG (LASIX) TAB PO NR (14:30)
--- NOTE | 2018-04-11 15:07 | Physical Therapy Daily Note ---
PT Daily Note-Current Subjective Pt. in bed but agrees to LE exercises supine and short walk. States he is so upset that he hasnt been able to get rid of this fluid on his LEs and states he is going to start "stomping about it" Pain Location: No Pain Reported Mental Status Patient Orientation: Normal For Age Transfers Therapy Code Descriptions/Definitions Functional [place] Measure: 0=Not Assessed/NA 4=Minimal Assistance 1=Total Assistance 5=Supervision or Setup 2=Maximal Assistance 6=Modified [place] 3=Moderate Assistance 7=Complete [place] Therapy Quality Codes: 6 Independent with activity with or without an assistive device 5 Patient requires set up or clean up by helper. Patient completes activity by themselves 4 Supervision or touching assist (CGA). [place] provide cues , steadying assist 3 The helper provides less than half the effort to complete the activity 2 The helper provides more than half the effort to complete the activity 1 Dependent. The helper does all the effort to complete an activity 7 Patient refused to complete or attempt activity 9 The patient did not perform the activity before the current illness or injury 88 Not attempted due to Medical conditions or safety concerns all TRFs Mod I Gait Training no AD 50 ft x 3 Mod I Exercises Supine Ex: Bridging, Ankle pumps, Quad Set, Glut sets, Heel Slides, Short Arc Quads, Scooting, Straight leg raise, Hip abd/add Supine Reps: 10 (x2) Assessment Current Status: Fair Progress so uncomfortable and discouraged because he is still so edematous, nursing consulted and states Dr has ordered thigh high ALPHONSO hose. PT Short Term Goals Short Term Goals Time Frame: Apr 13, 2018 Transfers (B,C,W/C) (FIM): 5 Gait (FIM): 6 Gait Distance Comment: 200' Gait Level of Assist: 6 Gait Assistive Device: FWW PT Mcfp Goals Personnel Analyst Goals PT Personnel Analyst Goals Time Frame: Apr 27, 2018 Transfers (B,C,W/C) (FIM): 6 Sit to Lying (QC): 6 Lying-Sitting on Side/Bed(QC): 6 Sit to Stand (QC): 6 Rollin Roll Left to Right (QC): 6 Chair/Ulf-gy-Cwlwt Xfer(QC): 6 Car Transfer (QC): 6 Gait (FIM): 6 Distance: 300' Walk 10 feet (QC): 6 Walk 10ft-Uneven Surface(QC): 6 Walk 50ft with 2 Turns (QC): 6 Walk 150 ft (QC): 6 Gait Level of Assist: 6 Gait Assistive Device: FWW Stairs (FIM): 2 # of Steps: 4 1 Step (curb) (QC): 4 4 Steps (QC): 4 Stairs Level Of Assist: 5 PT Plan Treatment/Plan Treatment Plan: Continue Plan of Care Treatment Plan: Bed Mobility, Concurrent Therapy, Education, Functional Activity Oren, Functional Strength, Group Therapy, Gait, Safety, Therapeutic Exercise, Transfers Treatment Duration: Apr 27, 2018 Frequency: At least 5 of 7 days/Wk (IRF) Estimated Hrs Per Day: 1.5 hours per day Patient and/or Family Agrees t: Yes Safety Risks/Education Patient Education: Gait Training, Transfer Techniques, Correct Positioning, Disease Process, Safety Issues Teaching Recipient: Patient Teaching Methods: Demonstration, Discussion Response to Teaching: Verbalize Understanding, Return Demonstration, Reinforcement Needed Time/GCodes Time In: 1435 Time Out: 1505 Total Billed Treatment Time: 30 Total Billed Treatment 1,GT10,EX20 G Codes Necessary: SONA Sarah LINE SERVICE ATTENDANT Apr 11, 2018 15:07
[2018-04-11 17:12] VITALS: BP 117/74
[2018-04-11] MEDS: ENOXAPARIN 40 MG/0.4 ML (LOVENOX) SYR SC SCH (18:04)
[2018-04-12] MEDS: RT-ALBUTEROL SULF 2.5 MG/3 ML PRE-MIX VIAL INH SCH ×3 (04:10→22:30)
[2018-04-12] MEDS: RT-BUDESONIDE NEBS 0.5 MG/2ML (PULMICORT) AMP INH SCH ×3 (04:10→22:29)
[2018-04-12] MEDS: ARFORMOTEROL 15 MCG/2 ML (BROVANA) INH SOLUTIION IH SCH ×3 (04:10→22:29)
[2018-04-12 05:18] VITALS: BP 124/78
[2018-04-12] MEDS: CATHETER FLUSH 10 ML SYR IV SCH ×3 (06:23→20:20)
[2018-04-12] MEDS: ENOXAPARIN 40 MG/0.4 ML (LOVENOX) SYR SC SCH ×2 (06:23→20:20)
[2018-04-12] MEDS: FUROSEMIDE 40 MG (LASIX) TAB PO SCH ×2 (06:23→16:51)
[2018-04-12] MEDS: NYSTATIN ORAL SUSP 5 ML UDC PO SCH ×3 (06:24→18:20)
[2018-04-12] MEDS: HYDROcodone/APAP 7.5 MG/325 MG (LORTAB, LORCET PLUS) TABLET PO PRN ×3 (06:28→20:24)
[2018-04-12] MEDS: MUPIROCIN 2% OINT 22 GM (BACTROBAN) TUBE TOP SCH ×2 (08:46→20:21)
[2018-04-12] MEDS: NYSTATIN CREAM (MYCOSTATIN) 30 GM TUBE TP SCH ×3 (08:48→20:21)
--- NOTE | 2018-04-12 11:48 | Physical Therapy Daily Note ---
PT Daily Note-Current Subjective Pt reports his edema in his legs is worse today and also going up into his arms. States makes his breathing worse Appearance Upon arrival into pt's room, Pt laying supine in bed with nurse present. At end of session, pt supine in bed with LE's elevated, call light phone and bedside table within reach. Transfers Therapy Code Descriptions/Definitions Functional [place] Measure: 0=Not Assessed/NA 4=Minimal Assistance 1=Total Assistance 5=Supervision or Setup 2=Maximal Assistance 6=Modified [place] 3=Moderate Assistance 7=Complete [place] Therapy Quality Codes: 6 Independent with activity with or without an assistive device 5 Patient requires set up or clean up by helper. Patient completes activity by themselves 4 Supervision or touching assist (CGA). [place] provide cues , steadying assist 3 The helper provides less than half the effort to complete the activity 2 The helper provides more than half the effort to complete the activity 1 Dependent. The helper does all the effort to complete an activity 7 Patient refused to complete or attempt activity 9 The patient did not perform the activity before the current illness or injury 88 Not attempted due to Medical conditions or safety concerns Transfers (B, C, W/C) (FIM): 5 Scootin Rollin Roll Left to Right (QC): 5 Supine to/from Sit: 5 Sit to/from Stand: 5 Sit to Lying (QC): 5 Sit to Stand (QC): 5 pt able to perform all transitions without physical assist but continues to require effort to achieve Gait Training Does the Patient Walk?: Yes Gait (FIM): 5 Distance (FIM): 3=150 ft Distance: 250, 100, 250, 100 Walk 10 feet (QC): 5 Walk 50 ft with 2 Turns(QC): 5 Walk 150 ft (QC): 5 Gait Level of Assist: 5 Gait Persons Needed: 1 Gait Assistive Device: FWW decreased step length and height, lateral sway, shuffling gait, noted increased fatigue and SOA with increased edema today Exercises Supine Ex: Bridging, Ankle pumps, Quad Set, Straight leg raise Supine Reps: 50 (AP, ankle INV/EV, QS, hip IR/ER) Seated Therapy Exercises: Ankle pumps, Sit to stand, Long arc quads, Hip flexion, Hamstring Curls, Hip abd/add Seated Reps: 20 Standing: Heel/toe raises, Marching, Mini squats, Sit to Stand Standing Reps: 20 50 reps each of supine exercises with inst to pt to continue to perform through the day to assist in decreasing edema. Pt declined Nustep today Treatments gait training, exercise Assessment increased edema throughout causing increased fatigue and SOA PT Short Term Goals Short Term Goals Time Frame: Apr 13, 2018 Transfers (B,C,W/C) (FIM): 5 Gait (FIM): 6 Gait Distance Comment: 200' Gait Level of Assist: 6 Gait Assistive Device: FWW PT Correction Goals [place] Helper Goals PT Correction Goals Time Frame: Apr 27, 2018 Transfers (B,C,W/C) (FIM): 6 Sit to Lying (QC): 6 Lying-Sitting on Side/Bed(QC): 6 Sit to Stand (QC): 6 Rollin Roll Left to Right (QC): 6 Chair/Odj-pf-Uvxoc Xfer(QC): 6 Car Transfer (QC): 6 Gait (FIM): 6 Distance: 300' Walk 10 feet (QC): 6 Walk 10ft-Uneven Surface(QC): 6 Walk 50ft with 2 Turns (QC): 6 Walk 150 ft (QC): 6 Gait Level of Assist: 6 Gait Assistive Device: FWW Stairs (FIM): 2 # of Steps: 4 1 Step (curb) (QC): 4 4 Steps (QC): 4 Stairs Level Of Assist: 5 PT Plan Problem List Problem List: Activity Tolerance, Functional Strength, Safety, Gait, Transfer, Bed Mobility Treatment/Plan Treatment Plan: Continue Plan of Care Treatment Plan: Bed Mobility, Concurrent Therapy, Education, Functional Activity Oren, Functional Strength, Group Therapy, Gait, Safety, Therapeutic Exercise, Transfers Treatment Duration: Apr 27, 2018 Frequency: At least 5 of 7 days/Wk (IRF) Estimated Hrs Per Day: 1.5 hours per day Patient and/or Family Agrees t: Yes Safety Risks/Education Patient Education: Gait Training, Transfer Techniques Teaching Recipient: Patient Teaching Methods: Demonstration, Discussion Response to Teaching: Verbalize Understanding, Return Demonstration inst in high reps with LE ex's while in bed to assist with decreasing LE edema Time/GCodes Time In: 900 Time Out: 1000 Total Billed Treatment Time: 60 Total Billed Treatment 1 visit GT 30 min EX 30 min ASIA SHAH PARTNER CCO Apr 12, 2018 11:48
[2018-04-12 13:35] LABS: HEMATOCRIT 28 % (40-54); HEMOGLOBIN 9.1 G/DL (13.3-17.7); MEAN CORPUSCULAR HEMOGLOBIN 30 PG (25-34); MEAN CORPUSCULAR HGB CONC 32 G/DL (32-36); MEAN CORPUSCULAR VOLUME 93 FL (80-99); RED BLOOD COUNT 3.05 10^6/uL (4.35-5.85); WHITE BLOOD COUNT 9.7 10^3/uL (4.3-11.0)
[2018-04-12 13:36] LABS: BAND NEUTROPHILS 0 %; BASOPHILS % (AUTO) 0 % (0-10); BASOPHILS % (MANUAL) 0 %; EOSINOPHILS # (AUTO) 0.1 10^3/uL (0.0-0.3); EOSINOPHILS % (AUTO) 1 % (0-10); EOSINOPHILS % (MANUAL) 2 %; LYMPHOCYTES # (AUTO) 1.1 X 10^3 (1.0-4.0); LYMPHOCYTES % (AUTO) 12 % (12-44); LYMPHOCYTES % (MANUAL) 11 %; MEAN PLATELET VOLUME 12.4 FL (7.4-10.4); METAMYELOCYTES % 1 %; MONOCYTES # (AUTO) 0.9 X 10^3 (0.0-1.0); MONOCYTES % (AUTO) 10 % (0-12); MONOCYTES % (MANUAL) 8 %; NEUTROPHILS # (AUTO) 7.5 X 10^3 (1.8-7.8); NEUTROPHILS % (AUTO) 77 % (42-75); NEUTROPHILS % (MANUAL) 77 %; RED CELL DISTRIBUTION WIDTH 15.1 % (10.0-14.5)
[2018-04-12 13:37] LABS: PLATELET ESTIMATE RARE GIANT PLATELET; REACTIVE LYMPHOCYTES 1 %; SMUDGE CELLS SLIGHT
[2018-04-12 13:38] LABS: ANISOCYTOSIS SLIGHT; HYPOCHROMASIA SLIGHT; POIKILOCYTOSIS SLIGHT; RBC MORPH RARE TARGET CELLS
--- NOTE | 2018-04-12 13:38 | PM & R (SOAP) Progress Note ---
Subjective This was a face to face visit with the patient. Date Seen by Provider: Apr 12, 2018 Time Seen by Provider: 11:50 Subjective/Events-last exam Patient was seen in his room this AM Patient with increased edema and patient needs benoit wraps Appreciate DR Torres note will increase lasix Discussed case with RN reviewed medical records again Will recheck CXR and check BNP See orders.Patient SBA for transfers Prealbumin pending Date Identified: Apr 12, 2018 Time Identified: 12:00 Medication Intervention: Lasic increased Review of Systems Cardiovascular: Edema Objective Physician Exam Last Set of Vital Signs Vital Signs Date Time Temp Pulse Resp B/P (MAP) Pulse Ox O2 Delivery O2 Flow Rate FiO2 04/12/18 06:54 92 Room Air 04/12/18 05:18 98.1 93 18 124/78 (93) 04/07/18 07:57 21 Capillary Refill : I&O Intake and Output 04/12/18 00:00 Intake Total 1440 ml Balance 1440 ml Intake Oral 1440 ml # Voids 8 # Bowel Movements 2 General: Alert, Oriented X3, Cooperative, No Acute Distress HEENT: Atraumatic, PERRLA, EOMI, Mucous Memb Moist/[place] Neck: Supple, No JVD Lungs: Other (decreased breath sounds) Heart: Regular Rate Abdomen: Normal Bowel Sounds, Soft, No Tenderness Extremities: Other (Plus edema both ankles) Neuro: Other (Sensation decreased slightly to light touch in ankles Strength 3- /5 prox lower limbs 4-/5 distal) Psych/Mental Status: Mental Status NL Results Lab Data Laboratory Tests 04/11/18 12:33: 04/12/18 10:30: 04/12/18 12:33: White Blood Count 9.7, Red Blood Count 3.05L, Hemoglobin 9.1L, Hematocrit 28L, Mean Corpuscular Volume 93, Mean Corpuscular Hemoglobin 30, Mean Corpuscular Hemoglobin Concent 32, Red Cell Distribution Width 15.1H, Platelet Count 153, Mean Platelet Volume 12.4H, Neutrophils (%) (Auto) 77H, Lymphocytes (%) (Auto) 12, Monocytes (%) (Auto) 10, Eosinophils (%) (Auto) 1, Basophils (%) (Auto) 0, Neutrophils # (Auto) 7.5, Lymphocytes # (Auto) 1.1, Monocytes # (Auto) 0.9, Eosinophils # (Auto) 0.1, Basophils # (Auto) 0.0, Neutrophils % (Manual) 77, Lymphocytes % (Manual) 11, Monocytes % (Manual) 8, Eosinophils % (Manual) 2, Basophils % (Manual) 0, Metamyelocytes % 1, Band Neutrophils 0, Reactive Lymphocytes 1, Smudge Cells SLIGHT, Toxic Granulation 1+, Platelet Estimate RARE GIANT PLATELETS, Hypochromasia SLIGHT, Poikilocytosis SLIGHT, Anisocytosis SLIGHT, Target Cells , Stomatocytes SLIGHT, Blood Morphology Comment RARE TARGET CELLS, Absolute Reticulocyte Count 73, Percent Reticulocyte Count 2.40 Microbiology 04/08/18 MRSA Screen - Final, Complete Assessment/Plan Assessment and Plan COPD myopathy Peripheral edema Sore throat resolved Constipation improved HTN controlled with med Asthma on resp treatments Chronic back pain HX of bilateral hip surgery and shouder surgery HX of recent bariatric surgery on modified diet Plan Continue Pt/OT Check prealbumin Check CXR Check BNP Increase lasix Benoit wraps legs see orders (1) Myopathy Assessment & Plan: Improving with PT/OT Status: Acute Co-Morbidities that are continuing to impact the rehab process: (include details ) CATHY CASTELLANOS MD Apr 12, 2018 13:38
[2018-04-12 13:39] LABS: ABSOLUTE RETIC # 73 10e9/L (24-90); STOMATOCYTES SLIGHT; TOXIC GRANULATION/VACUOLAZATIO 1+
[2018-04-12 13:42] LABS: PLATELET COUNT 153 10^3/uL (130-400)
--- NOTE | 2018-04-12 14:37 | Therapy Group Daily Note ---
Therapy Daily Group Note Patient Education Topic Other List Below (memory) Exercises LE Seated Exercise, UE Exercise Other/Notes Pt ambulated with CGA using [facility] gym <-->room for OT group. Group consisted of introductions (name, place living, reason for being in ARU), socialization, ARU description, LE/UE seated exercises, memory education/strategies and memory activities. Pt appropriately introduced self and actively listened to peers. Pt verbalized understanding of educational topics and was able to contribute to conversations. Pt answered questions about memory and was able to use strategies to complete tasks. Tolerated and complete UE/LE seated exercises. After therapy, pt sitting in recliner with call light/phone in reach. All needs met in room. Start Time: 13:00 Stop Time: 14:10 Total Billed Treatment Time: 70 Total Billed Treatment 1-GRP SCOTT WIGGINS Apr 12, 2018 14:37
[2018-04-12 15:41] VITALS: BP 130/76
--- NOTE | 2018-04-12 17:18 | Diagnostic Imaging Report ---
INDICATION: History of pleural effusion. COMPARISON: 04/04/2018. FINDINGS: Frontal and lateral views of the chest demonstrate normal heart size and pulmonary vascularity. The lungs show persistent asymmetric elevation of the left hemidiaphragm, but are otherwise clear. There are no signs of infiltrate, pleural effusions or pneumothoraces. The visualized osseous structures show no acute abnormalities. IMPRESSION: No acute process. No signs of infiltrates, effusions or pneumothoraces. Dictated by: Dictated on workstation # [id number]
[2018-04-13] MEDS: NYSTATIN ORAL SUSP 5 ML UDC PO SCH ×2 (00:28→06:09)
[2018-04-13] MEDS: HYDROcodone/APAP 7.5 MG/325 MG (LORTAB, LORCET PLUS) TABLET PO PRN ×4 (03:30→23:11)
[2018-04-13 05:28] VITALS: BP 112/66
[2018-04-13] MEDS: FUROSEMIDE 40 MG (LASIX) TAB PO SCH ×2 (06:09→16:23)
[2018-04-13] MEDS: CATHETER FLUSH 10 ML SYR IV SCH ×3 (06:09→20:02)
[2018-04-13] MEDS: ENOXAPARIN 40 MG/0.4 ML (LOVENOX) SYR SC SCH ×2 (08:14→20:01)
[2018-04-13] MEDS: RT-ALBUTEROL SULF 2.5 MG/3 ML PRE-MIX VIAL INH SCH ×2 (08:54→20:26)
[2018-04-13] MEDS: RT-BUDESONIDE NEBS 0.5 MG/2ML (PULMICORT) AMP INH SCH ×2 (08:54→20:26)
[2018-04-13 08:59] VITALS: BP 112/66
--- NOTE | 2018-04-13 09:02 | Physical Therapy Daily Note ---
PT Daily Note-Current Subjective Pt. is still concerned and disappointed that he is still swollen and it makes him so tired and SOB with activity. Pt. wants to be up ad ernie and states " I dont care what you say, Im not going to fall and when I have to pee Im getting up by myself , I cant wait" Pain Numeric Pain Scale: 3 Location: Left Location Body Site: Knee Pain Description: Ache Mental Status Patient Orientation: Normal For Age Transfers Therapy Code Descriptions/Definitions Functional [place] Measure: 0=Not Assessed/NA 4=Minimal Assistance 1=Total Assistance 5=Supervision or Setup 2=Maximal Assistance 6=Modified [place] 3=Moderate Assistance 7=Complete [place] Therapy Quality Codes: 6 Independent with activity with or without an assistive device 5 Patient requires set up or clean up by helper. Patient completes activity by themselves 4 Supervision or touching assist (CGA). [place] provide cues , steadying assist 3 The helper provides less than half the effort to complete the activity 2 The helper provides more than half the effort to complete the activity 1 Dependent. The helper does all the effort to complete an activity 7 Patient refused to complete or attempt activity 9 The patient did not perform the activity before the current illness or injury 88 Not attempted due to Medical conditions or safety concerns Transfers (B, C, W/C) (FIM): 6 Scootin Rollin Supine to/from Sit: 6 Sit to/from Stand: 6 Bed to/from Chair: 6 Gait Training Does the Patient Walk?: Yes Distance (FIM): 3=150 ft (175x2,50x2) Gait Level of Assist: 6 Gait Persons Needed: 0 Gait Assistive Device: FWW up ad ernie Stair Training Stair Training: Handrails/: 2 handrails Stairs (FIM): 2 #of Steps: 4 Stairs: Pattern: Step to Level of Assist: 4 slow, laborious, knee pain Exercises Supine Ex: Bridging, Ankle pumps, Quad Set, Rolling, Glut sets, Heel Slides, Short Arc Quads, Scooting, Straight leg raise, Hip abd/add Supine Reps: 15 NuStep Minutes: 15 NuStep Workload: 2 Assessment Current Status: Good Progress still battling edema : pitted edema LEs up in to chest area PT Short Term Goals Short Term Goals Time Frame: Apr 13, 2018 Transfers (B,C,W/C) (FIM): 5 Gait (FIM): 6 Gait Distance Comment: 200' Gait Level of Assist: 6 Gait Assistive Device: FWW PT Fdc Goals Industrial [employer] Magistrate Goals PT Industrial Court Magistrate Goals Time Frame: Apr 27, 2018 Transfers (B,C,W/C) (FIM): 6 Sit to Lying (QC): 6 Lying-Sitting on Side/Bed(QC): 6 Sit to Stand (QC): 6 Rollin Roll Left to Right (QC): 6 Chair/Hng-ay-Hacjq Xfer(QC): 6 Car Transfer (QC): 6 Gait (FIM): 6 Distance: 300' Walk 10 feet (QC): 6 Walk 10ft-Uneven Surface(QC): 6 Walk 50ft with 2 Turns (QC): 6 Walk 150 ft (QC): 6 Gait Level of Assist: 6 Gait Assistive Device: FWW Stairs (FIM): 2 # of Steps: 4 1 Step (curb) (QC): 4 4 Steps (QC): 4 Stairs Level Of Assist: 5 PT Plan Treatment/Plan Treatment Plan: Continue Plan of Care Treatment Plan: Bed Mobility, Concurrent Therapy, Education, Functional Activity Oren, Functional Strength, Group Therapy, Gait, Safety, Therapeutic Exercise, Transfers Treatment Duration: Apr 27, 2018 Frequency: At least 5 of 7 days/Wk (IRF) Estimated Hrs Per Day: 1.5 hours per day Patient and/or Family Agrees t: Yes Safety Risks/Education Patient Education: Gait Training, Transfer Techniques, Steps, Correct Positioning, Disease Process, Safety Issues Teaching Recipient: Patient Teaching Methods: Demonstration, Discussion Response to Teaching: Verbalize Understanding, Return Demonstration, Reinforcement Needed reviewed many times the risk of falls as well as proper use of FWW Time/GCodes Time In: 800 Time Out: 900 Total Billed Treatment Time: 60 Total Billed Treatment 1,EX35,GT15,FA10 G Codes Necessary: SONA Sarah OPTICAL FABRICATION TECHNICIAN Apr 13, 2018 09:02
[2018-04-13] MEDS: MUPIROCIN 2% OINT 22 GM (BACTROBAN) TUBE TOP SCH ×2 (09:41→20:01)
[2018-04-13] MEDS: NYSTATIN CREAM (MYCOSTATIN) 30 GM TUBE TP SCH ×3 (09:41→20:01)
--- NOTE | 2018-04-13 09:41 | Consultation-Cardiology ---
HPI-Cardiology Cardiology Consultation: Date of Consultation 04/13/18 Time Seen by a Provider: 09:20 Date of Admission 04-06-18 Attending Physician Cathy Castellanos MD Admitting Physician Dwight Perez MD Consulting Physician JARROD BRIGHT HPI: Chief Complaint: LE swelling Mr. Paz is a 67 year old male who was admitted to IR 225. He reports he underwent gastric sleeve surgery in December 2017 at [facility] in [place], [place]. He reports approx a month ago he had an episode of pancreatitis and renal failure. He reports he has had bilat LE swelling since then. He denies any c/ o CP or palpitations. He states he has chronic shortness which he feels is unchanged in the recent past d/t chronic COPD. He reports he has been having difficulty meeting his protein and caloric needs recently. He denies any syncope or near syncope. Review of Systems-Cardiology Review of Systems Constitutional: No chills, No fever; weight loss (post gastric sleeve surgery - approx 60lb weight loss) Eyes: No vision change Ears/Nose/Throat: No recent hearing loss Respiratory: As described under HPI Cardiovascular: As described under HPI Gastrointestinal: No constipation, No diarrhea, No nausea, No vomiting Genitourinary: No dysuria, No hematuria Musculoskeletal: no symptoms reported Skin: No rash, No ulcerations Psychiatric/Neurological: No seizure, No focal weakness, No syncope Hematologic: No bleeding abnormalities RRM-Elxvjp-Npprwk Hx Patient Social History Smoking Status: Former Smoker Former smoker/When Quit: May 08, 2010 Type Used: Cigarettes Recent Foreign Travel: No Recent Infectious Disease Expo: No Immunizations Up To Date Tetanus Booster (TDap): Unknown Date of Pneumonia Vaccine: Feb 27, 2017 Date of Influenza Vaccine: Feb 05, 2018 Past Medical History PMH As described under Assessment. Family Medical History Family Medical History: He reports his father had lung cancer, HTN and CHF. He reports his mother had HTN and CAD. Family History: Alzheimer's disease PATERNAL GRANDMOTHER Arthritis 19 MOTHER Cardiovascular disease 19 MOTHER MATERNAL GRANDMOTHER MATERNAL GRANDFATHER PATERNAL GRANDFATHER Hypertension 19 MOTHER Neoplasm 19 FATHER (LUNG CANCER) Allergies and Home Medications Allergies Coded Allergies: No Known Drug Allergies (Unverified , 03/20/17) Home Medications Albuterol Sulfate 2.5 Mg/3 Ml Vial.neb, 2.5 MG NEB Q4H PRN for SHORTNESS OF BREATH, (Reported) Albuterol Sulfate 1 Puff Puff, 2 PUFF IH Q4H PRN for SHORTNESS OF BREATH, ( Reported) 1 PUFF = 90 MCG Alprazolam 1 Mg Tablet, 1 MG PO BID PRN for ANXIETY, (Reported) Arformoterol Tartrate 15 Mcg/2 Ml Vial.neb, 15 MCG NEB BID, (Reported) Budesonide 0.5 Mg/2 Ml Ampul.neb, 0.5 MG NEB BID, (Reported) Hydrocodone/Acetaminophen 1 Each Tablet, 1 TAB PO Q6H PRN for PAIN-MODERATE, ( Reported) Levofloxacin 750 Mg Tablet, 750 MG PO 1100, (Reported) 10 DAY SUPPLY FILLED 03-28-18 Lisinopril 40 Mg Tablet, 40 MG PO DAILY, (Reported) Zolpidem Tartrate 5 Mg Tablet, 5 MG PO HS, (Reported) Patient Home Medication List Home Medication List Reviewed: Yes Physical Exam-Cardiology Physical Exam Vital Signs/I&O 04/16/18 04/16/18 04/17/18 20:30 22:01 04:37 Temp 98.0 Pulse 91 Resp 18 B/P (MAP) 109/69 (82) Pulse Ox 90 93 O2 Delivery Room Air Room Air Room Air 04/17/18 00:00 Intake Total 1200 ml Balance 1200 ml Capillary Refill : Constitutional: AAO x 3, well-developed, well-nourished HEENT: PERRL, oral hygience is good; No ulceration Neck: No carotid bruit; carotid pulses are 2 + bilaterally Respiratory: No accessory muscle use, No respiratory distress; chest expansion is symmetric, chest is bilaterally symmetric, lungs clear to auscultation ( prolonged expiratory phase) Cardiovascular: regular rate-rhythm, S1 and S2 Gastrointestinal: No tender; soft, round Rectal: deferred Extremities: significant edema (bilat pitting) Neurologic/Psychiatric: grossly intact Skin: No rash, No ulcerations Data Review Labs Microbiology 04/08/18 MRSA Screen - Final, Complete Radiology NAME: NOHEMY PAZ [facility] REC#: [id number] PT STATUS: ADM IN : 1950 PHYSICIAN: CATHY CASTELLANOS MD ADMIT DATE: 04/06/18/IRF Draft Date of Exam:04/12/18 CHEST PA/LAT (2 VIEW) INDICATION: History of pleural effusion. COMPARISON: 04/04/2018. FINDINGS: Frontal and lateral views of the chest demonstrate normal heart size and pulmonary vascularity. The lungs show persistent asymmetric elevation of the left hemidiaphragm, but are otherwise clear. There are no signs of infiltrate, pleural effusions or pneumothoraces. The visualized osseous structures show no acute abnormalities. IMPRESSION: No acute process. No signs of infiltrates, effusions or pneumothoraces. Dictated on workstation # [id number] Dict: 04/12/18 1655 Trans: 04/12/18 1717 PJE [id number] Interpreted by: FARZANA EVERETT MD Electronically signed by: ECG Impression ECG Initial ECG Rhythm: Normal Sinus A/P-Cardiology Assessment/Admission Diagnosis Bilat LE edema - no evidence of CHF Anemia, likely iron deficiency - management per medical services Nutritional deficiency based on albumin and pt report COPD H/O tobacco use - quit approx 7 years ago H/O pancreatitis in Mar 2018 with acute renal failure H/O HTN - currently controlled Obesity - s/p gastric sleeve surgery in Dec 2017 at [facility] in [place], [place] by Dr. Baron Sleep apnea - CPAP tx Echocardiogram of Apr 05, [address] Oakes showed LVEF 55-60%; PASP 35-40 mmHg ; Mild to mod MR Discussion and Recomendations Bilat LE swelling of undetermined etiology - no evidence of CHF - will check venous Doppler to r/o possible DVT - likely d/t malnutrition Anemia - management per medical services Echocardiogram reviewed from 04-05-18 Continue current medication regimen Nutrition service consult Increase oral Lasix with potassium replacement Monitor lab closely We would like to thank medical services for this consult Further recs will be based on his hospital course Clinical Quality Measures DVT/VTE Risk/Contraindication: Risk Factor Score Per Nursin RFS Level Per Nursing on Admit: 4+=Very High JARROD HECTOR Apr 13, 2018 09:41
--- NOTE | 2018-04-13 11:08 | Occupational Ther Daily Note ---
OT Current Status-Daily Note Subjective Late Entry 04/12/18-Pt dozing in bed, woke easily. Pt c/o pain in back though stated it has decreased since taking pain medications. Pt agrees to therapy. Mental Status/Objective Patient Orientation: Person, Place, Time, Situation Therapy Code Descriptions/Definitions Functional [place] Measure: 0=Not Assessed/NA 4=Minimal Assistance 1=Total Assistance 5=Supervision or Setup 2=Maximal Assistance 6=Modified [place] 3=Moderate Assistance 7=Complete [place] ADL-Treatment Supine <-->sit, mod I. Ambulated to bathroom and stood to urinate, independent. Transferred to shower, mod I with grabbars and shower bench. Mod I for shower using long handle sponge, hand held shower, grabbar and shower bench. Pt is able to wash under stomach by self. Pt sat on EOB to don lower body clothing. Unable to don socks due to increase edema, assist to complete. Went to discuss with nrsg and ALPHONSO hose were recommended. Attempted to don ALPHONSO hose would not fit due to increased swelling. Wrapped each lower leg with 2 SAVANNA wraps and elevated LE's above heart. Pt takes increased time to complete tasks due to increase SOA and decreased activity tolerance. After therapy, pt lying in bed with call light/phone in reach. Nrsg present in room. Therapy Code Descriptions/Definitions Functional [place] Measure: 0=Not Assessed/NA 4=Minimal Assistance 1=Total Assistance 5=Supervision or Setup 2=Maximal Assistance 6=Modified [place] 3=Moderate Assistance 7=Complete [place] Therapy Quality Codes: 6 Independent with activity with or without an assistive device 5 Patient requires set up or clean up by helper. Patient completes activity by themselves 4 Supervision or touching assist (CGA). [place] provide cues , steadying assist 3 The helper provides less than half the effort to complete the activity 2 The helper provides more than half the effort to complete the activity 1 Dependent. The helper does all the effort to complete an activity 7 Patient refused to complete or attempt activity 9 The patient did not perform the activity before the current illness or injury 88 Not attempted due to Medical conditions or safety concerns Bathing (FIM): 6 Bathing Location: L Arm, R Arm, L Upper Leg, R Upper Leg, L Lower Leg ( including foot), R Lower Leg (including foot), Chest, Abdomen, Buttocks, Perineal Area Shower/Bathe Self (QC): 6 Upper Body (FIM): 6 Upper Body Dressing (QC): 6 Lower Body Dressing (FIM): 6 Lower Body Dressing (QC): 6 On/Off Footwear (QC): 6 Toileting (FIM): 6 Toileting Hygiene (QC): 6 Transfers (B, C, W/C) (FIM): 7 Toilet/Commode Transfer (FIM): 6 Toilet Transfer (QC): 6 Shower Transfer(FIM): 6 OT Short Term Goals Short Term Goals Transfers (B,C,W/C) (FIM): 5 1=Demonstrate adherence to instructed precautions during ADL tasks. 2=Patient will verbalize/demonstrate understanding of assistive devices/ modifications for ADL. 3=Patient will improve strength/tolerance for activity to enable patient to perform ADL's. OT Pollution Control Chemist Goals Pollution Control Chemist Goals Time Frame: Apr 27, 2018 Eating (FIM): 7 Eating (QC): 6 Groomin Oral Hygiene (QC): 6 Bathing(FIM): 6 Shower/Bathe Self (QC): 6 Upper Body Dressing(FIM): 6 Upper Body Dressing (QC): 6 Lower Body Dressing(FIM): 6 Lower Body Dressing (QC): 6 On/Off Footwear (QC): 6 Toileting(FIM): 6 Toileting Hygiene (QC): 6 Toilet/Commode Transfer(FIM): 6 Toilet/Commode Transfer (QC): 6 Shower Transfer(FIM): 6 Additional Goals: 1-Demonstrate ADL Tasks, 2-Verbalize Understanding, 3- ImproveStrength/Oren 1=Demonstrate adherence to instructed precautions during ADL tasks. 2=Patient will verbalize/demonstrate understanding of assistive devices/ modifications for ADL. 3=Patient will improve strength/tolerance for activity to enable patient to perform ADL's. OT Education/Plan Discharge Recommendations Plan/Recommendations: Continue POC Treatment Plan/Plan of Care Patient would benefit from OT for education, treatment and training to promote independence in ADL's, mobility, safety and/or upper extremity function for ADL' s. Plan of Care: ADL Retraining, Functional Mobility, Group Exercise/Act as Ind, UE Funct Exercise/Act Treatment Duration: Apr 27, 2018 Frequency: At least 5 of 7 days/Wk (IRF) Estimated Hrs Per Day: 1.5 hours per day Rehab Potential: Good Time/GCodes Start Time: 08:00 Stop Time: 09:00 Total Time Billed (hr/min): 60 Billed Treatment Time 1 visit-ADL 4 (60 min) SCOTT WIGGINS Apr 13, 2018 11:08
--- NOTE | 2018-04-13 11:11 | Diagnostic Imaging Report ---
PROCEDURE: US Venous Lower Ext Chepe. TECHNIQUE: Multiple real-time grayscale images were obtained over the lower extremities in various projections, bilaterally. Additional duplex Doppler and color Doppler images were also obtained. INDICATION: Bilateral lower extremity swelling. There is no evidence of right or left lower extremity DVT. Both lower extremity deep venous systems demonstrates normal compressibility with normal response to augmentation and Valsalva. No fluid collection or mass is seen. There is some edema in the subcutaneous tissues. IMPRESSION: No evidence of right or left lower tibia DVT. Dictated by: Dictated on workstation # [id number]
[2018-04-13] MEDS: ARFORMOTEROL 15 MCG/2 ML (BROVANA) INH SOLUTIION IH SCH ×2 (11:20→20:26)
--- NOTE | 2018-04-13 13:13 | Occupational Ther Daily Note ---
OT Current Status-Daily Note Subjective Pt in bed, agrees to therapy. Pt reports 9/10 back pain, requests pain meds. RN notified and provided medication. Mental Status/Objective Therapy Code Descriptions/Definitions Functional [place] Measure: 0=Not Assessed/NA 4=Minimal Assistance 1=Total Assistance 5=Supervision or Setup 2=Maximal Assistance 6=Modified [place] 3=Moderate Assistance 7=Complete [place] ADL-Treatment Pt declined shower, but would like to complete ADLs seated at sink. Supine to sit with modified independence. Gait to restroom without LOB. Pt shaved and brushed teeth with modified independence while seated at sink. Pt also bathed upper body with set up. Pt requires assist to thoroughly wash/dry under abdomen. Pt declined to wash lower body. Don pullover shirt with modified independence. Declined further ADLs. Therapy Code Descriptions/Definitions Functional [place] Measure: 0=Not Assessed/NA 4=Minimal Assistance 1=Total Assistance 5=Supervision or Setup 2=Maximal Assistance 6=Modified [place] 3=Moderate Assistance 7=Complete [place] Therapy Quality Codes: 6 Independent with activity with or without an assistive device 5 Patient requires set up or clean up by helper. Patient completes activity by themselves 4 Supervision or touching assist (CGA). [place] provide cues , steadying assist 3 The helper provides less than half the effort to complete the activity 2 The helper provides more than half the effort to complete the activity 1 Dependent. The helper does all the effort to complete an activity 7 Patient refused to complete or attempt activity 9 The patient did not perform the activity before the current illness or injury 88 Not attempted due to Medical conditions or safety concerns Grooming (FIM): 6 Oral Hygiene (QC): 6 Upper Body (FIM): 6 Upper Body Dressing (QC): 6 Other Treatment Pt performed gait to therapy gym with FWW, no LOB noted. Pt performed bilateral UE exercises to increase strength needed for ADLs and transfers. Pt performed 4 exercises x15 reps with 2# dowel loretta. Rest breaks between exercises. Arm bike x12 minutes to increase overall strength and activity tolerance for functional task. Pt performed activity with minimal resistance and slow pace. One rest break taken senior living through task. Pt returned to room, transferred to EOB with modified independence. Pt sitting EOB with needs met after session. OT Short Term Goals Short Term Goals Transfers (B,C,W/C) (FIM): 5 1=Demonstrate adherence to instructed precautions during ADL tasks. 2=Patient will verbalize/demonstrate understanding of assistive devices/ modifications for ADL. 3=Patient will improve strength/tolerance for activity to enable patient to perform ADL's. OT Senior Care Goals Senior Care Goals Time Frame: Apr 27, 2018 Eating (FIM): 7 Eating (QC): 6 Groomin Oral Hygiene (QC): 6 Bathing(FIM): 6 Shower/Bathe Self (QC): 6 Upper Body Dressing(FIM): 6 Upper Body Dressing (QC): 6 Lower Body Dressing(FIM): 6 Lower Body Dressing (QC): 6 On/Off Footwear (QC): 6 Toileting(FIM): 6 Toileting Hygiene (QC): 6 Toilet/Commode Transfer(FIM): 6 Toilet/Commode Transfer (QC): 6 Shower Transfer(FIM): 6 Additional Goals: 1-Demonstrate ADL Tasks, 2-Verbalize Understanding, 3- ImproveStrength/Oren 1=Demonstrate adherence to instructed precautions during ADL tasks. 2=Patient will verbalize/demonstrate understanding of assistive devices/ modifications for ADL. 3=Patient will improve strength/tolerance for activity to enable patient to perform ADL's. OT Education/Plan Discharge Recommendations Plan/Recommendations: Continue POC Treatment Plan/Plan of Care Patient would benefit from OT for education, treatment and training to promote independence in ADL's, mobility, safety and/or upper extremity function for ADL' s. Plan of Care: ADL Retraining, Functional Mobility, Group Exercise/Act as Ind, UE Funct Exercise/Act Treatment Duration: Apr 27, 2018 Frequency: At least 5 of 7 days/Wk (IRF) Estimated Hrs Per Day: 1.5 hours per day Rehab Potential: Good Time/GCodes Start Time: 09:30 Stop Time: 10:30 Total Time Billed (hr/min): 60 Billed Treatment Time 1 visit, ADLx2(30minutes), EXx2(30minutes) HI FRITZ OT Apr 13, 2018 13:12
--- NOTE | 2018-04-13 14:27 | Consultation-Cardiology ---
HPI-Cardiology Cardiology Consultation: Date of Consultation 04/13/18 Time Seen by a Provider: 09:30 Date of Admission Attending Physician Karson Mora MD Admitting Physician Dwight Perez MD Consulting Physician JOCELINE FLOWERS MD, MA, FACP, FACC, FSCAI, CCDS HPI: Chief Complaint: LE swelling Mr. Paz is a 67 year old male who was admitted to 225. He reports he underwent gastric sleeve surgery in December 2017 at [facility] in [place], [place]. He reports approx a month ago he had an episode of pancreatitis and renal failure. He reports he has had bilat LE swelling since then. He denies any c/ o CP or palpitations. He states he has chronic shortness which he feels is unchanged in the recent past d/t chronic COPD. He reports he has been having difficulty meeting his protein and caloric needs recently. He denies any syncope or near syncope. Review of Systems-Cardiology Review of Systems Constitutional: No chills, No fever; weight loss (post gastric sleeve surgery - approx 60lb weight loss) Eyes: No vision change Ears/Nose/Throat: No recent hearing loss Respiratory: As described under HPI Cardiovascular: As described under HPI Gastrointestinal: No constipation, No diarrhea, No nausea, No vomiting Genitourinary: No dysuria, No hematuria Musculoskeletal: no symptoms reported Skin: No rash, No ulcerations Psychiatric/Neurological: No seizure, No focal weakness, No syncope Hematologic: No bleeding abnormalities USP-Moaelk-Cdpznz Hx Patient Social History Smoking Status: Former Smoker Former smoker/When Quit: May 08, 2010 Type Used: Cigarettes Recent Foreign Travel: No Recent Infectious Disease Expo: No Immunizations Up To Date Tetanus Booster (TDap): Unknown Date of Pneumonia Vaccine: Feb 27, 2017 Date of Influenza Vaccine: Feb 05, 2018 Past Medical History PMH As described under Assessment. Family Medical History Family Medical History: He reports his father had lung cancer, HTN and CHF. He reports his mother had HTN and CAD. Family History: Alzheimer's disease PATERNAL GRANDMOTHER Arthritis 19 MOTHER Cardiovascular disease 19 MOTHER MATERNAL GRANDMOTHER MATERNAL GRANDFATHER PATERNAL GRANDFATHER Hypertension 19 MOTHER Neoplasm 19 FATHER (LUNG CANCER) Allergies and Home Medications Allergies Coded Allergies: No Known Drug Allergies (Unverified , 03/20/17) Home Medications Albuterol Sulfate 2.5 Mg/3 Ml Vial.neb, 2.5 MG NEB Q4H PRN for SHORTNESS OF BREATH, (Reported) Albuterol Sulfate 1 Puff Puff, 2 PUFF IH Q4H PRN for SHORTNESS OF BREATH, ( Reported) 1 PUFF = 90 MCG Alprazolam 1 Mg Tablet, 1 MG PO BID PRN for ANXIETY, (Reported) Arformoterol Tartrate 15 Mcg/2 Ml Vial.neb, 15 MCG NEB BID, (Reported) Budesonide 0.5 Mg/2 Ml Ampul.neb, 0.5 MG NEB BID, (Reported) Hydrocodone/Acetaminophen 1 Each Tablet, 1 TAB PO Q6H PRN for PAIN-MODERATE, ( Reported) Levofloxacin 750 Mg Tablet, 750 MG PO 1100, (Reported) 10 DAY SUPPLY FILLED 03-28-18 Lisinopril 40 Mg Tablet, 40 MG PO DAILY, (Reported) Zolpidem Tartrate 5 Mg Tablet, 5 MG PO HS, (Reported) Patient Home Medication List Home Medication List Reviewed: Yes Physical Exam-Cardiology Physical Exam Vital Signs/I&O 04/13/18 04/13/18 04/13/18 04/13/18 05:28 08:54 08:59 09:00 Temp 98.3 Pulse 95 94 Resp 18 B/P (MAP) 112/66 (81) Pulse Ox 95 92 92 O2 Delivery Room Air Room Air Room Air 04/13/18 11:20 Pulse Ox 96 O2 Delivery Room Air 04/13/18 00:00 Intake Total 600 ml Output Total 250 ml Balance 350 ml Capillary Refill : Constitutional: AAO x 3, well-developed, well-nourished HEENT: PERRL, oral hygience is good; No ulceration Neck: No carotid bruit; carotid pulses are 2 + bilaterally Respiratory: No accessory muscle use, No respiratory distress; chest expansion is symmetric, chest is bilaterally symmetric, lungs clear to auscultation ( prolonged expiratory phase) Cardiovascular: regular rate-rhythm, S1 and S2 Gastrointestinal: No tender; soft, round Rectal: deferred Extremities: significant edema (bilat pitting) Neurologic/Psychiatric: grossly intact Skin: No rash, No ulcerations Data Review Labs Microbiology 04/08/18 MRSA Screen - Final, Complete A/P-Cardiology Assessment/Admission Diagnosis Bilat LE edema, likely related to 3rd spacing from hypoalbuminemia - no evidence of CHF Anemia, likely iron deficiency - management per Medical Services Nutritional deficiency based on albumin and pt report COPD H/O tobacco use - quit approx 7 years ago H/O pancreatitis in Mar 2018 with acute renal failure H/O HTN - currently controlled Obesity - s/p gastric sleeve surgery in Dec 2017 at [facility] in [place], [place] by Dr. Baron Sleep apnea - CPAP tx Echocardiogram of Apr 05, [address] Oakes showed LVEF 55-60%; PASP 35-40 mmHg ; Mild to mod MR Discussion and Recomendations Bilat LE swelling of undetermined etiology - no evidence of CHF - will check venous Doppler to r/o possible DVT - likely d/t malnutrition Anemia - management per medical services Echocardiogram reviewed from 04-05-18 Continue current medication regimen Nutrition service consult Increase oral Lasix with potassium replacement Monitor lab closely We would like to thank Medical Services for this consult Further recs will be based on his hospital course Clinical Quality Measures DVT/VTE Risk/Contraindication: Risk Factor Score Per Nursin RFS Level Per Nursing on Admit: 4+=Very High JOCELINE FLOWERS MD FACP FAC CCDS Apr 13, 2018 14:27
--- NOTE | 2018-04-13 14:47 | Therapy Group Daily Note ---
Therapy Daily Group Note Patient Education Topic Other List Below (intro to rehab, benefits of exercise) Exercises LE Seated Exercise, UE Exercise Other/Notes Pt. participated in group PT OT session this date. Pt. ambulated to from group with FWW SBA. Pts. introduced selves and socialized utilizing a pair of jumbo foam dice . Pts. laughed and shared fun life events. Pts. lead the exercise group by reading from written illustrated cards with others following the example. Pt. toileted indep then to bed after Rx, sahu at hand. Start Time: 13:00 Stop Time: 14:20 Total Billed Treatment Time: 80 Total Billed Treatment 1,GRP SONA FENG REMOTE PILOT OPERATOR Apr 13, 2018 14:47
[2018-04-13] MEDS: KCL 10 MEQ TAB (MICRO K) PO SCH (16:23)
[2018-04-13 17:25] VITALS: BP 122/77
[2018-04-13] MEDS: DOCUSATE SODIUM 100 MG (COLACE) CAP PO PRN (20:01)
[2018-04-14 05:13] VITALS: BP 121/74
[2018-04-14] MEDS: CATHETER FLUSH 10 ML SYR IV SCH ×3 (05:25→20:21)
[2018-04-14] MEDS: FUROSEMIDE 40 MG (LASIX) TAB PO SCH ×2 (06:14→16:29)
[2018-04-14] MEDS: KCL 10 MEQ TAB (MICRO K) PO SCH ×2 (06:14→16:29)
[2018-04-14] MEDS: MULTIVIT W/MINERALS TAB (THERAGRAN M) PO SCH (06:15)
[2018-04-14] MEDS: ARFORMOTEROL 15 MCG/2 ML (BROVANA) INH SOLUTIION IH SCH ×2 (06:44→19:37)
[2018-04-14] MEDS: RT-BUDESONIDE NEBS 0.5 MG/2ML (PULMICORT) AMP INH SCH ×2 (06:44→19:37)
[2018-04-14] MEDS: RT-ALBUTEROL SULF 2.5 MG/3 ML PRE-MIX VIAL INH SCH ×2 (06:45→19:37)
[2018-04-14 06:54] LABS: HEMOGLOBIN 9.3 G/DL (13.3-17.7); RED BLOOD COUNT 3.1 10^6/uL (4.35-5.85); RED CELL DISTRIBUTION WIDTH 14.9 % (10.0-14.5); WHITE BLOOD COUNT 8.4 10^3/uL (4.3-11.0)
[2018-04-14 07:13] LABS: BILIRUBIN,TOTAL 0.7 MG/DL (0.1-1.0); CALCIUM 8.9 MG/DL (8.5-10.1); CREATININE SERUM 1.29 MG/DL (0.60-1.30); MAGNESIUM 1.6 MG/DL (1.8-2.4); POTASSIUM 3.5 MMOL/L (3.6-5.0)
[2018-04-14] MEDS: ENOXAPARIN 40 MG/0.4 ML (LOVENOX) SYR SC SCH ×2 (07:59→20:20)
--- NOTE | 2018-04-14 07:59 | PM & R (SOAP) Progress Note ---
Subjective This was a face to face visit with the patient. Date Seen by Provider: Apr 14, 2018 Time Seen by Provider: 07:50 Subjective/Events-last exam Patient was seen in his room this AM Patient Modified Independent for transfers Appreciate Cardiology and PCP notes and orders Discussed case with RN Laborer [place] has seen Dietary supplements added.Albumin low accounting for Edema s/p Bariatric procedure Date Identified: Apr 14, 2018 Time Identified: 07:45 Medication Intervention: Supplements added Review of Systems Cardiovascular: Edema Objective Physician Exam Last Set of Vital Signs Vital Signs Date Time Temp Pulse Resp B/P (MAP) Pulse Ox O2 Delivery O2 Flow Rate FiO2 04/14/18 06:45 92 Room Air 04/14/18 05:13 97.7 92 20 121/74 (90) Capillary Refill : I&O Intake and Output 04/14/18 00:00 Intake Total 1310 ml Output Total 1550 ml Balance -240 ml Intake Oral 1310 ml Output Urine Total 1550 ml # Voids 3 General: Alert, Oriented X3, Cooperative, No Acute Distress HEENT: Atraumatic, PERRLA, EOMI, Mucous Memb Moist/[place] Neck: Supple, No JVD Lungs: Other (decreased breath sounds) Heart: Regular Rate Abdomen: Normal Bowel Sounds, Soft, No Tenderness Extremities: Other (Plus edema both ankles) Neuro: Other (Sensation decreased slightly to light touch in ankles Strength 3- /5 prox lower limbs 4-/5 distal) Psych/Mental Status: Mental Status NL Results Lab Data Laboratory Tests 04/11/18 12:33: Prealbumin 10.9L 04/12/18 10:30: Iron Level 31L, Total Iron Binding Capacity 154L, Unsaturated Iron Binding Capacity 123, Transferrin % Saturation 20, Ferritin 1424.9H 04/12/18 12:33: White Blood Count 9.7, Red Blood Count 3.05L, Hemoglobin 9.1L, Hematocrit 28L, Mean Corpuscular Volume 93, Mean Corpuscular Hemoglobin 30, Mean Corpuscular Hemoglobin Concent 32, Red Cell Distribution Width 15.1H, Platelet Count 153, Mean Platelet Volume 12.4H, Neutrophils (%) (Auto) 77H, Lymphocytes (%) (Auto) 12, Monocytes (%) (Auto) 10, Eosinophils (%) (Auto) 1, Basophils (%) (Auto) 0, Neutrophils # (Auto) 7.5, Lymphocytes # (Auto) 1.1, Monocytes # (Auto) 0.9, Eosinophils # (Auto) 0.1, Basophils # (Auto) 0.0, Neutrophils % (Manual) 77, Lymphocytes % (Manual) 11, Monocytes % (Manual) 8, Eosinophils % (Manual) 2, Basophils % (Manual) 0, Metamyelocytes % 1, Band Neutrophils 0, Reactive Lymphocytes 1, Smudge Cells SLIGHT, Toxic Granulation 1+, Platelet Estimate RARE GIANT PLATELET, Hypochromasia SLIGHT, Poikilocytosis SLIGHT, Anisocytosis SLIGHT, Target Cells , Stomatocytes SLIGHT, Blood Morphology Comment RARE TARGET CELLS, Absolute Reticulocyte Count 73, Percent Reticulocyte Count 2.40, B -Type Natriuretic Peptide 26.4 04/14/18 06:41: White Blood Count 8.4, Red Blood Count 3.10L, Hemoglobin 9.3L, Hematocrit 29L, Mean Corpuscular Volume 93, Mean Corpuscular Hemoglobin 30, Mean Corpuscular Hemoglobin Concent 32, Red Cell Distribution Width 14.9H, Platelet Count 174, Mean Platelet Volume 12.0H, Sodium Level 137, Potassium Level 3.5L, Chloride Level 93L, Carbon Dioxide Level 32, Anion Gap 12, Blood Urea Nitrogen 18, Creatinine 1.29, Estimat Glomerular Filtration Rate 55, BUN/Creatinine Ratio 14 , Glucose Level 119H, Calcium Level 8.9, Corrected Calcium 9.7, Magnesium Level 1.6L, Total Bilirubin 0.7, Aspartate Amino Transf (AST/SGOT) 21, Alanine Aminotransferase (ALT/SGPT) 15, Alkaline Phosphatase 87, Total Protein 6.0L, Albumin 3.0L Microbiology 04/08/18 MRSA Screen - Final, Complete Assessment/Plan Assessment and Plan COPD myopathy improving Peripheral edema associated with hypoalbuminemia s/p Bariatric procedure OSH Hypoalbuminemia supplements ordered Sore throat resolved Constipation treated HTN controlled with med Asthma on resp treatments Chronic back pain HX of bilateral hip surgery and shoulder surgery Hx of recent Bariatric surgery on modified diet Plan Continue PT/OT Supplements Probable discharge sometime next week will discuss with Team (1) Myopathy Assessment & Plan: PT/OT continues with much improvement Status: Acute Co-Morbidities that are continuing to impact the rehab process: (include details ) CATHY CASTELLANOS MD Apr 14, 2018 07:59
[2018-04-14] MEDS: MUPIROCIN 2% OINT 22 GM (BACTROBAN) TUBE TOP SCH ×2 (08:00→20:21)
[2018-04-14] MEDS: NYSTATIN CREAM (MYCOSTATIN) 30 GM TUBE TP SCH ×3 (08:01→20:21)
[2018-04-14] MEDS: HYDROcodone/APAP 7.5 MG/325 MG (LORTAB, LORCET PLUS) TABLET PO PRN ×3 (08:06→22:45)
[2018-04-14] MEDS: DOCUSATE SODIUM 100 MG (COLACE) CAP PO PRN ×2 (08:12→20:21)
--- NOTE | 2018-04-14 10:32 | Physical Therapy Daily Note ---
PT Daily Note-Current Subjective Pt. agrees to Rx second attempt. States he got some really good sleep this morning. Pain Location: No Pain Reported Mental Status Patient Orientation: Normal For Age Transfers Therapy Code Descriptions/Definitions Functional [place] Measure: 0=Not Assessed/NA 4=Minimal Assistance 1=Total Assistance 5=Supervision or Setup 2=Maximal Assistance 6=Modified [place] 3=Moderate Assistance 7=Complete [place] Therapy Quality Codes: 6 Independent with activity with or without an assistive device 5 Patient requires set up or clean up by helper. Patient completes activity by themselves 4 Supervision or touching assist (CGA). [place] provide cues , steadying assist 3 The helper provides less than half the effort to complete the activity 2 The helper provides more than half the effort to complete the activity 1 Dependent. The helper does all the effort to complete an activity 7 Patient refused to complete or attempt activity 9 The patient did not perform the activity before the current illness or injury 88 Not attempted due to Medical conditions or safety concerns Transfers (B, C, W/C) (FIM): 6 Scootin Rollin Supine to/from Sit: 6 Sit to/from Stand: 6 Bed to/from Chair: 6 Gait Training Does the Patient Walk?: Yes Gait (FIM): 6 Distance (FIM): 3=150 ft (200x2,100) Gait Level of Assist: 6 Gait Persons Needed: 0 Gait Assistive Device: FWW up ad ernie after this Rx, no LOB, safe habits noted Exercises NuStep Minutes: 12 NuStep Workload: 4 Assessment Current Status: Good Progress PT Short Term Goals Short Term Goals Time Frame: Apr 13, 2018 Transfers (B,C,W/C) (FIM): 5 Gait (FIM): 6 Gait Distance Comment: 200' Gait Level of Assist: 6 Gait Assistive Device: FWW PT Clerk Entry Level Goals Clerk Entry Level Goals PT Intermediate Goals Time Frame: Apr 27, 2018 Transfers (B,C,W/C) (FIM): 6 Sit to Lying (QC): 6 Lying-Sitting on Side/Bed(QC): 6 Sit to Stand (QC): 6 Rollin Roll Left to Right (QC): 6 Chair/Bwf-ft-Rueim Xfer(QC): 6 Car Transfer (QC): 6 Gait (FIM): 6 Distance: 300' Walk 10 feet (QC): 6 Walk 10ft-Uneven Surface(QC): 6 Walk 50ft with 2 Turns (QC): 6 Walk 150 ft (QC): 6 Gait Level of Assist: 6 Gait Assistive Device: FWW Stairs (FIM): 2 # of Steps: 4 1 Step (curb) (QC): 4 4 Steps (QC): 4 Stairs Level Of Assist: 5 PT Plan Treatment/Plan Treatment Plan: Continue Plan of Care Treatment Plan: Bed Mobility, Concurrent Therapy, Education, Functional Activity Oren, Functional Strength, Group Therapy, Gait, Safety, Therapeutic Exercise, Transfers Treatment Duration: Apr 27, 2018 Frequency: At least 5 of 7 days/Wk (IRF) Estimated Hrs Per Day: 1.5 hours per day Patient and/or Family Agrees t: Yes Safety Risks/Education Patient Education: Gait Training, Transfer Techniques Teaching Recipient: Patient Teaching Methods: Demonstration, Discussion Response to Teaching: Verbalize Understanding, Return Demonstration Time/GCodes Time In: 955 Time Out: 1025 Total Billed Treatment Time: 30 Total Billed Treatment 1,GT15,EX15 G Codes Necessary: SONA Sarah CRISIS SPECIALIST Apr 14, 2018 10:32
[2018-04-14] MEDS ORDERED: KCL 20 MEQ TAB (K-DUR) PO ONE (14:00)
[2018-04-14 17:01] VITALS: BP 124/78
[2018-04-15 04:58] LABS: CALCIUM 9.2 MG/DL (8.5-10.1); CREATININE SERUM 1.22 MG/DL (0.60-1.30); MAGNESIUM 1.9 MG/DL (1.8-2.4); POTASSIUM 3.5 MMOL/L (3.6-5.0)
[2018-04-15 05:07] VITALS: BP 122/75
[2018-04-15] MEDS: KCL 10 MEQ TAB (MICRO K) PO SCH ×2 (06:01→16:37)
[2018-04-15] MEDS: FUROSEMIDE 40 MG (LASIX) TAB PO SCH ×2 (06:01→16:37)
[2018-04-15] MEDS: HYDROcodone/APAP 7.5 MG/325 MG (LORTAB, LORCET PLUS) TABLET PO PRN ×2 (06:01→18:22)
[2018-04-15] MEDS: MULTIVIT W/MINERALS TAB (THERAGRAN M) PO SCH (06:01)
[2018-04-15] MEDS: CATHETER FLUSH 10 ML SYR IV SCH ×3 (06:01→20:26)
[2018-04-15] MEDS: RT-ALBUTEROL SULF 2.5 MG/3 ML PRE-MIX VIAL INH SCH ×2 (08:42→21:48)
[2018-04-15] MEDS: RT-BUDESONIDE NEBS 0.5 MG/2ML (PULMICORT) AMP INH SCH ×2 (08:42→20:34)
[2018-04-15] MEDS: MUPIROCIN 2% OINT 22 GM (BACTROBAN) TUBE TOP SCH ×2 (09:01→20:27)
[2018-04-15] MEDS: ENOXAPARIN 40 MG/0.4 ML (LOVENOX) SYR SC SCH ×2 (09:01→20:26)
[2018-04-15] MEDS: NYSTATIN CREAM (MYCOSTATIN) 30 GM TUBE TP SCH ×3 (09:01→20:27)
[2018-04-15] MEDS: DOCUSATE SODIUM 100 MG (COLACE) CAP PO PRN (10:19)
[2018-04-15] MEDS: ARFORMOTEROL 15 MCG/2 ML (BROVANA) INH SOLUTIION IH SCH ×2 (10:47→20:27)
[2018-04-15 15:44] VITALS: BP 109/70
[2018-04-15] MEDS ORDERED: KCL 20 MEQ TAB (K-DUR) PO NR (16:30)
[2018-04-16] MEDS: HYDROcodone/APAP 7.5 MG/325 MG (LORTAB, LORCET PLUS) TABLET PO PRN ×4 (03:51→22:13)
[2018-04-16 05:11] VITALS: BP 129/78
[2018-04-16] MEDS: CATHETER FLUSH 10 ML SYR IV SCH ×3 (05:16→20:58)
[2018-04-16] MEDS: MULTIVIT W/MINERALS TAB (THERAGRAN M) PO SCH (05:47)
[2018-04-16] MEDS: FUROSEMIDE 40 MG (LASIX) TAB PO SCH ×2 (05:47→16:05)
[2018-04-16] MEDS: KCL 10 MEQ TAB (MICRO K) PO SCH ×2 (05:47→16:05)
[2018-04-16 06:43] LABS: CREATININE SERUM 1.25 MG/DL (0.60-1.30); POTASSIUM 3.6 MMOL/L (3.6-5.0)
[2018-04-16 07:59] VITALS: BP 129/78
[2018-04-16] MEDS: RT-ALBUTEROL SULF 2.5 MG/3 ML PRE-MIX VIAL INH SCH ×2 (07:59→19:18)
[2018-04-16] MEDS: RT-BUDESONIDE NEBS 0.5 MG/2ML (PULMICORT) AMP INH SCH ×2 (08:00→19:18)
[2018-04-16] MEDS: ENOXAPARIN 40 MG/0.4 ML (LOVENOX) SYR SC SCH ×2 (08:57→20:57)
[2018-04-16] MEDS: MUPIROCIN 2% OINT 22 GM (BACTROBAN) TUBE TOP SCH ×2 (08:57→20:58)
[2018-04-16] MEDS: NYSTATIN CREAM (MYCOSTATIN) 30 GM TUBE TP SCH ×3 (08:58→20:58)
--- NOTE | 2018-04-16 09:02 | Physical Therapy Daily Note ---
PT Daily Note-Current Subjective Pt. states his nights and days are mixed up and he has been up since 1AM. Agrees to Rx but is very tired Pain Numeric Pain Scale: 0-No Pain Mental Status Patient Orientation: Normal For Age Transfers Therapy Code Descriptions/Definitions Functional [place] Measure: 0=Not Assessed/NA 4=Minimal Assistance 1=Total Assistance 5=Supervision or Setup 2=Maximal Assistance 6=Modified [place] 3=Moderate Assistance 7=Complete [place] Therapy Quality Codes: 6 Independent with activity with or without an assistive device 5 Patient requires set up or clean up by helper. Patient completes activity by themselves 4 Supervision or touching assist (CGA). [place] provide cues , steadying assist 3 The helper provides less than half the effort to complete the activity 2 The helper provides more than half the effort to complete the activity 1 Dependent. The helper does all the effort to complete an activity 7 Patient refused to complete or attempt activity 9 The patient did not perform the activity before the current illness or injury 88 Not attempted due to Medical conditions or safety concerns Transfers (B, C, W/C) (FIM): 6 Scootin Rollin Roll Left to Right (QC): 5 Supine to/from Sit: 6 Sit to/from Stand: 6 Sit to Lying (QC): 5 Sit to Stand (QC): 5 Chair/Ivc-yd-Hnsdj Xfer(QC): 5 Bed to/from Chair: 6 Car Transfer (QC): 5 Gait Training Does the Patient Walk?: Yes Gait (FIM): 6 Distance (FIM): 3=150 ft (200x2) Walk 10 feet (QC): 5 Walk 50 ft with 2 Turns(QC): 5 Walk 150 ft (QC): 5 Walking 10ft/uneven surface-QC: 5 Gait Level of Assist: 6 Gait Persons Needed: 0 Gait Assistive Device: FWW up ad ernie status, safe habits, no LOB Stair Training Stair Training: Handrails/: 2 handrails Stairs (FIM): 5 #of Steps: 8 1 Step (curb) (QC): 5 4 Steps (QC): 5 Stairs: Pattern: Reciprocal Level of Assist: 5 household exception Balance Picking up an Object (QC): 5 Exercises Supine Ex: Bridging, Ankle pumps, Quad Set, Rolling, Glut sets, Heel Slides, Short Arc Quads, Scooting, Straight leg raise, Hip abd/add Supine Reps: 15 Seated Therapy Exercises: Ankle pumps, Sit to stand, Long arc quads, Hip flexion Seated Reps: 12 Assessment Current Status: Good Progress still some edema LEs PT Short Term Goals Short Term Goals Time Frame: Apr 13, 2018 Transfers (B,C,W/C) (FIM): 5 Gait (FIM): 6 Gait Distance Comment: 200' Gait Level of Assist: 6 Gait Assistive Device: FWW PT Warehouse Logistics Manager Goals Care Home Goals PT Warehouse Logistics Manager Goals Time Frame: Apr 27, 2018 Transfers (B,C,W/C) (FIM): 6 Sit to Lying (QC): 6 Lying-Sitting on Side/Bed(QC): 6 Sit to Stand (QC): 6 Rollin Roll Left to Right (QC): 6 Chair/Yie-ci-Nmogj Xfer(QC): 6 Car Transfer (QC): 6 Gait (FIM): 6 Distance: 300' Walk 10 feet (QC): 6 Walk 10ft-Uneven Surface(QC): 6 Walk 50ft with 2 Turns (QC): 6 Walk 150 ft (QC): 6 Gait Level of Assist: 6 Gait Assistive Device: FWW Stairs (FIM): 2 # of Steps: 4 1 Step (curb) (QC): 4 4 Steps (QC): 4 Stairs Level Of Assist: 5 PT Plan Treatment/Plan Treatment Plan: Continue Plan of Care Treatment Plan: Bed Mobility, Concurrent Therapy, Education, Functional Activity Oren, Functional Strength, Group Therapy, Gait, Safety, Therapeutic Exercise, Transfers Treatment Duration: Apr 27, 2018 Frequency: At least 5 of 7 days/Wk (IRF) Estimated Hrs Per Day: 1.5 hours per day Patient and/or Family Agrees t: Yes Safety Risks/Education Patient Education: Gait Training, Transfer Techniques, Steps, Correct Positioning, Disease Process, Safety Issues Teaching Recipient: Patient Teaching Methods: Demonstration, Discussion Response to Teaching: Return Demonstration, Reinforcement Needed Time/GCodes Time In: 800 Time Out: 900 Total Billed Treatment Time: 60 Total Billed Treatment 1,GT15m,FA25m,EX20m G Codes Necessary: SONA Sarah TESTING DIRECTOR Apr 16, 2018 09:01
--- NOTE | 2018-04-16 09:23 | Progress Note-Cardiology ---
Cardiology SOAP Progress Note Objective: I&O/Vital Signs 04/16/18 04/16/18 04/17/18 20:30 22:01 04:37 Temp 98.0 Pulse 91 Resp 18 B/P (MAP) 109/69 (82) Pulse Ox 90 93 O2 Delivery Room Air Room Air Room Air 04/17/18 00:00 Intake Total 1200 ml Balance 1200 ml Weight (Pounds): 297 Weight (Ounces): 0.4 Weight (Calculated Kilograms): 134.731559 Constitutional: AAO x 3, well-developed, well-nourished Respiratory: No accessory muscle use, No respiratory distress; chest expansion is symmetric, chest is bilaterally symmetric, lungs clear to auscultation ( prolonged expiratory phase) Cardiovascular: regular rate-rhythm, S1 and S2 Gastrointestional: No tender; soft, round Extremities: significant edema (bilat pitting - improving) Neurologic/Psychiatric: grossly intact Skin: No rash, No ulcerations Results/Procedures: Labs Microbiology 04/08/18 MRSA Screen - Final, Complete A/P: Assessment: Bilat LE edema, likely related to 3rd spacing from hypoalbuminemia - no evidence of CHF No evidence of DVT on u/s of 04-13-18 Anemia, likely iron deficiency - management per Medical Services Nutritional deficiency based on albumin and pt report COPD H/O tobacco use - quit approx 7 years ago H/O pancreatitis in Mar 2018 with acute renal failure H/O HTN - currently controlled Obesity - s/p gastric sleeve surgery in Dec 2017 at [facility] in [place], [place] by Dr. Baron Sleep apnea - CPAP tx Echocardiogram of Apr 05, [address] Oakes showed LVEF 55-60%; PASP 35-40 mmHg ; Mild to mod MR Plan: Bilat LE swelling of undetermined etiology - no evidence of CHF - will check venous Doppler to r/o possible DVT - likely d/t malnutrition Anemia - management per medical services Echocardiogram reviewed from 04-05-18 Continue current medication regimen Nutrition service consult Increase oral Lasix with potassium replacement Monitor lab closely We would like to thank Medical Services for this consult Further recs will be based on his hospital course JARROD HECTOR Apr 16, 2018 09:23
[2018-04-16] MEDS: ARFORMOTEROL 15 MCG/2 ML (BROVANA) INH SOLUTIION IH SCH ×2 (11:39→22:01)
--- NOTE | 2018-04-16 11:42 | Occupational Ther Daily Note ---
OT Current Status-Daily Note Subjective Pt seen in room, up in recliner, agreeable to OT. No pain mentioned. Appearance Alert, cooperative Mental Status/Objective Therapy Code Descriptions/Definitions Functional [place] Measure: 0=Not Assessed/NA 4=Minimal Assistance 1=Total Assistance 5=Supervision or Setup 2=Maximal Assistance 6=Modified [place] 3=Moderate Assistance 7=Complete [place] ADL-Treatment Discussed when pt thought he might be ready for discharge and he said, "Not soon. 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 He did say that the swelling has gotten better. Pt declined a shower stating that he had a good sponge bath yesterday. He did want to shave and brush his teeth though. Up from recliner without help. Walked with FWW to bathroom and sat at sink to groom. Left walker at door but no LOB observed. He completed grooming tasks modified independently, taking longer than usual, seated. Therapy Code Descriptions/Definitions Functional [place] Measure: 0=Not Assessed/NA 4=Minimal Assistance 1=Total Assistance 5=Supervision or Setup 2=Maximal Assistance 6=Modified [place] 3=Moderate Assistance 7=Complete [place] Therapy Quality Codes: 6 Independent with activity with or without an assistive device 5 Patient requires set up or clean up by helper. Patient completes activity by themselves 4 Supervision or touching assist (CGA). [place] provide cues , steadying assist 3 The helper provides less than half the effort to complete the activity 2 The helper provides more than half the effort to complete the activity 1 Dependent. The helper does all the effort to complete an activity 7 Patient refused to complete or attempt activity 9 The patient did not perform the activity before the current illness or injury 88 Not attempted due to Medical conditions or safety concerns Grooming (FIM): 6 Other Treatment He walked without assistance to gym, with FWW, and completed 14 minutes bilat UE exercise on arm bike, set at 15W resistance, taking only a brief recovery period at midpoint. He also did nuts and bolts activity and graded clothespins, both with 1# weight on each arm. To strengthen arms but also to help mobilize fluid in arms. He got up and down from chair with arms without help and walked back to his room with FWW. He became "up ad ernie" in his room on Monday. Up in recliner, all needs met. Education OT Patient Education: Progress toward Goal/Update tx plan, Purpose of tx/ functional activities Teaching Recipient: Patient Teaching Methods: Discussion Response to Teaching: Verbalize Understanding OT Short Term Goals Short Term Goals Transfers (B,C,W/C) (FIM): 5 1=Demonstrate adherence to instructed precautions during ADL tasks. 2=Patient will verbalize/demonstrate understanding of assistive devices/ modifications for ADL. 3=Patient will improve strength/tolerance for activity to enable patient to perform ADL's. OT Director Marketing Goals Director Marketing Goals Time Frame: Apr 27, 2018 Eating (FIM): 7 Eating (QC): 6 Groomin Oral Hygiene (QC): 6 Bathing(FIM): 6 Shower/Bathe Self (QC): 6 Upper Body Dressing(FIM): 6 Upper Body Dressing (QC): 6 Lower Body Dressing(FIM): 6 Lower Body Dressing (QC): 6 On/Off Footwear (QC): 6 Toileting(FIM): 6 Toileting Hygiene (QC): 6 Toilet/Commode Transfer(FIM): 6 Toilet/Commode Transfer (QC): 6 Shower Transfer(FIM): 6 Additional Goals: 1-Demonstrate ADL Tasks, 2-Verbalize Understanding, 3- ImproveStrength/Oren 1=Demonstrate adherence to instructed precautions during ADL tasks. 2=Patient will verbalize/demonstrate understanding of assistive devices/ modifications for ADL. 3=Patient will improve strength/tolerance for activity to enable patient to perform ADL's. OT Education/Plan Discharge Recommendations Plan/Recommendations: Continue POC Treatment Plan/Plan of Care Patient would benefit from OT for education, treatment and training to promote independence in ADL's, mobility, safety and/or upper extremity function for ADL' s. Plan of Care: ADL Retraining, Functional Mobility, Group Exercise/Act as Ind, UE Funct Exercise/Act Treatment Duration: Apr 27, 2018 Frequency: At least 5 of 7 days/Wk (IRF) Estimated Hrs Per Day: 1.5 hours per day Rehab Potential: Good Time/GCodes Start Time: 09:00 Stop Time: 10:00 Total Time Billed (hr/min): 60 Billed Treatment Time visit, 23 minutes ADL, 37 minutes exercise GINO CAT OT Apr 16, 2018 11:42
--- NOTE | 2018-04-16 13:34 | Occupational Ther Daily Note ---
OT Current Status-Daily Note Subjective Pt seen in room, in bed, agreeable to OT. No pain mentioned Appearance Alert, cooperative Mental Status/Objective Therapy Code Descriptions/Definitions Functional [place] Measure: 0=Not Assessed/NA 4=Minimal Assistance 1=Total Assistance 5=Supervision or Setup 2=Maximal Assistance 6=Modified [place] 3=Moderate Assistance 7=Complete [place] ADL-Treatment Therapy Code Descriptions/Definitions Functional [place] Measure: 0=Not Assessed/NA 4=Minimal Assistance 1=Total Assistance 5=Supervision or Setup 2=Maximal Assistance 6=Modified [place] 3=Moderate Assistance 7=Complete [place] Therapy Quality Codes: 6 Independent with activity with or without an assistive device 5 Patient requires set up or clean up by helper. Patient completes activity by themselves 4 Supervision or touching assist (CGA). [place] provide cues , steadying assist 3 The helper provides less than half the effort to complete the activity 2 The helper provides more than half the effort to complete the activity 1 Dependent. The helper does all the effort to complete an activity 7 Patient refused to complete or attempt activity 9 The patient did not perform the activity before the current illness or injury 88 Not attempted due to Medical conditions or safety concerns Other Treatment Pt got up out of bed, donned his shirt without help, walked to bathroom to toilet, leaving walker at doorway, then walked to gym with FWW, no LOB observed throughout. He completed 15 reps bilat UE exercise with 2# weight, working on shoulders, elbows, forearms and wrists. He also did 15 reps bilat UE ex with red theraband (medium resistance) and 15 reps ex with 2# weight on exercise bar , working on shoulders, elbows. forearms and wrists. To strengthen arms to help with transfers and ADLs, as well as help mobilize fluids in arms. Care transferred to PT. Education OT Patient Education: Exercise program, Purpose of tx/functional activities Teaching Methods: Discussion Response to Teaching: Verbalize Understanding OT Short Term Goals Short Term Goals Transfers (B,C,W/C) (FIM): 5 1=Demonstrate adherence to instructed precautions during ADL tasks. 2=Patient will verbalize/demonstrate understanding of assistive devices/ modifications for ADL. 3=Patient will improve strength/tolerance for activity to enable patient to perform ADL's. OT Jail Goals Jail Goals Time Frame: Apr 27, 2018 Eating (FIM): 7 Eating (QC): 6 Groomin Oral Hygiene (QC): 6 Bathing(FIM): 6 Shower/Bathe Self (QC): 6 Upper Body Dressing(FIM): 6 Upper Body Dressing (QC): 6 Lower Body Dressing(FIM): 6 Lower Body Dressing (QC): 6 On/Off Footwear (QC): 6 Toileting(FIM): 6 Toileting Hygiene (QC): 6 Toilet/Commode Transfer(FIM): 6 Toilet/Commode Transfer (QC): 6 Shower Transfer(FIM): 6 Additional Goals: 1-Demonstrate ADL Tasks, 2-Verbalize Understanding, 3- ImproveStrength/Oren 1=Demonstrate adherence to instructed precautions during ADL tasks. 2=Patient will verbalize/demonstrate understanding of assistive devices/ modifications for ADL. 3=Patient will improve strength/tolerance for activity to enable patient to perform ADL's. OT Education/Plan Discharge Recommendations Plan/Recommendations: Continue POC Treatment Plan/Plan of Care Patient would benefit from OT for education, treatment and training to promote independence in ADL's, mobility, safety and/or upper extremity function for ADL' s. Plan of Care: ADL Retraining, Functional Mobility, Group Exercise/Act as Ind, UE Funct Exercise/Act Treatment Duration: Apr 27, 2018 Frequency: At least 5 of 7 days/Wk (IRF) Estimated Hrs Per Day: 1.5 hours per day Rehab Potential: Good Time/GCodes Start Time: 13:00 Stop Time: 13:30 Total Time Billed (hr/min): 30 Billed Treatment Time visit, 30 minutes exercise GINO CAT OT Apr 16, 2018 13:34
--- NOTE | 2018-04-16 13:58 | Physical Therapy Daily Note ---
PT Daily Note-Current Subjective Pt. expresses that he is still feeling weak and tired. Agrees to Rx Pain Numeric Pain Scale: 0-No Pain Mental Status Patient Orientation: Normal For Age Transfers Therapy Code Descriptions/Definitions Functional [place] Measure: 0=Not Assessed/NA 4=Minimal Assistance 1=Total Assistance 5=Supervision or Setup 2=Maximal Assistance 6=Modified [place] 3=Moderate Assistance 7=Complete [place] Therapy Quality Codes: 6 Independent with activity with or without an assistive device 5 Patient requires set up or clean up by helper. Patient completes activity by themselves 4 Supervision or touching assist (CGA). [place] provide cues , steadying assist 3 The helper provides less than half the effort to complete the activity 2 The helper provides more than half the effort to complete the activity 1 Dependent. The helper does all the effort to complete an activity 7 Patient refused to complete or attempt activity 9 The patient did not perform the activity before the current illness or injury 88 Not attempted due to Medical conditions or safety concerns all TRFs Mod I Gait Training Gait Assistive Device: FWW up and about ad ernie, safety observed, no incidents Exercises Standing: Hip Abduction, Hamstring curls, Heel/toe raises, Marching, Mini squats, Sit to Stand Standing Reps: 15 required rest breaks between Assessment Current Status: Good Progress fatigues but no LOB PT Short Term Goals Short Term Goals Time Frame: Apr 13, 2018 Transfers (B,C,W/C) (FIM): 5 Gait (FIM): 6 Gait Distance Comment: 200' Gait Level of Assist: 6 Gait Assistive Device: FWW PT Fdc Goals Hospitality Job Titles Goals PT Hospitality Job Titles Goals Time Frame: Apr 27, 2018 Transfers (B,C,W/C) (FIM): 6 Sit to Lying (QC): 6 Lying-Sitting on Side/Bed(QC): 6 Sit to Stand (QC): 6 Rollin Roll Left to Right (QC): 6 Chair/Hqt-mw-Vhrdh Xfer(QC): 6 Car Transfer (QC): 6 Gait (FIM): 6 Distance: 300' Walk 10 feet (QC): 6 Walk 10ft-Uneven Surface(QC): 6 Walk 50ft with 2 Turns (QC): 6 Walk 150 ft (QC): 6 Gait Level of Assist: 6 Gait Assistive Device: FWW Stairs (FIM): 2 # of Steps: 4 1 Step (curb) (QC): 4 4 Steps (QC): 4 Stairs Level Of Assist: 5 PT Plan Treatment/Plan Treatment Plan: Continue Plan of Care Treatment Plan: Bed Mobility, Concurrent Therapy, Education, Functional Activity Oren, Functional Strength, Group Therapy, Gait, Safety, Therapeutic Exercise, Transfers Treatment Duration: Apr 27, 2018 Frequency: At least 5 of 7 days/Wk (IRF) Estimated Hrs Per Day: 1.5 hours per day Patient and/or Family Agrees t: Yes Safety Risks/Education Patient Education: Gait Training, Transfer Techniques, Correct Positioning, Disease Process, Safety Issues Teaching Recipient: Patient Teaching Methods: Demonstration, Discussion Response to Teaching: Verbalize Understanding, Return Demonstration Time/GCodes Time In: 1330 Time Out: 1400 Total Billed Treatment Time: 30 Total Billed Treatment 1,GT10m,EX20m G Codes Necessary: SONA Sarah CORRECTIONAL SUPERVISOR LIEUTENANT Apr 16, 2018 13:58
[2018-04-16 17:18] VITALS: BP 117/73
--- NOTE | 2018-04-16 19:05 | PM & R (SOAP) Progress Note ---
Subjective This was a face to face visit with the patient. Date Seen by Provider: Apr 16, 2018 Time Seen by Provider: 18:20 Subjective/Events-last exam Patient was seen in his room this evening Patient Modified Independent for transfers Appreciate current labs and Cardiology note and orders K replaced and WNL now Date Identified: Apr 16, 2018 Time Identified: 18:30 Medication Intervention: K replacement Review of Systems Cardiovascular: Edema Objective Physician Exam Last Set of Vital Signs Vital Signs Date Time Temp Pulse Resp B/P (MAP) Pulse Ox O2 Delivery O2 Flow Rate FiO2 04/16/18 17:18 98.7 86 16 117/73 (88) 94 Room Air Capillary Refill : I&O Intake and Output 04/16/18 00:00 Intake Total 1450 ml Output Total 2050 ml Balance -600 ml Intake Oral 1450 ml Output Urine Total 2050 ml # Voids 5 # Bowel Movements 1 General: Alert, Oriented X3, Cooperative, No Acute Distress HEENT: Atraumatic, PERRLA, EOMI, Mucous Memb Moist/[place] Neck: Supple, No JVD Lungs: Other (decreased breath sounds) Heart: Regular Rate Abdomen: Normal Bowel Sounds, Soft, No Tenderness Extremities: Other ( edema improving) Neuro: Other (Sensation decreased slightly to light touch in ankles Strength 3- /5 prox lower limbs 4-/5 distal) Psych/Mental Status: Mental Status NL Results Lab Data Laboratory Tests 04/14/18 06:41: White Blood Count 8.4, Red Blood Count 3.10L, Hemoglobin 9.3L, Hematocrit 29L, Mean Corpuscular Volume 93, Mean Corpuscular Hemoglobin 30, Mean Corpuscular Hemoglobin Concent 32, Red Cell Distribution Width 14.9H, Platelet Count 174, Mean Platelet Volume 12.0H, Sodium Level 137, Potassium Level 3.5L, Chloride Level 93L, Carbon Dioxide Level 32, Anion Gap 12, Blood Urea Nitrogen 18, Creatinine 1.29, Estimat Glomerular Filtration Rate 55, BUN/Creatinine Ratio 14 , Glucose Level 119H, Calcium Level 8.9, Corrected Calcium 9.7, Magnesium Level 1.6L, Total Bilirubin 0.7, Aspartate Amino Transf (AST/SGOT) 21, Alanine Aminotransferase (ALT/SGPT) 15, Alkaline Phosphatase 87, Total Protein 6.0L, Albumin 3.0L 04/15/18 04:20: Sodium Level 136, Potassium Level 3.5L, Chloride Level 93L, Carbon Dioxide Level 30, Anion Gap 13, Blood Urea Nitrogen 19H, Creatinine 1.22, Estimat Glomerular Filtration Rate 59, BUN/Creatinine Ratio 16, Glucose Level 103, Calcium Level 9.2, Magnesium Level 1.9 04/16/18 05:30: Sodium Level 137, Potassium Level 3.6, Chloride Level 94L, Carbon Dioxide Level 31, Anion Gap 12, Blood Urea Nitrogen 19H, Creatinine 1.25, Estimat Glomerular Filtration Rate 57, BUN/Creatinine Ratio 15, Glucose Level 124H, Calcium Level 9.0 Microbiology 04/08/18 MRSA Screen - Final, Complete Assessment/Plan Assessment and Plan COPD myopathy Peripheral edema improving Sore throat resolved Hypoalbuminemia with associated edema improving with supplements HTN controlled with meds Asthma on resp treatments Chronic back pain HX of bilateral hip surgery and shoulder surgery HX of recent Bariatric surgery on Modified diet Plan Continue PT/OT/supplements Transportation Maintenance Supervisor has seen and counseled Team Conference 04-18-18 Probable discharge by end of week (1) Myopathy Status: Acute Co-Morbidities that are continuing to impact the rehab process: (include details ) CATHY CASTELLANOS MD Apr 16, 2018 19:05
[2018-04-17] MEDS: HYDROcodone/APAP 7.5 MG/325 MG (LORTAB, LORCET PLUS) TABLET PO PRN ×3 (04:27→22:42)
[2018-04-17 04:37] VITALS: BP 109/69
[2018-04-17] MEDS: CATHETER FLUSH 10 ML SYR IV SCH ×4 (05:39→21:57)
[2018-04-17] MEDS: KCL 10 MEQ TAB (MICRO K) PO SCH ×2 (06:43→16:26)
[2018-04-17] MEDS: MULTIVIT W/MINERALS TAB (THERAGRAN M) PO SCH (06:43)
[2018-04-17] MEDS: FUROSEMIDE 40 MG (LASIX) TAB PO SCH ×2 (06:43→16:26)
--- NOTE | 2018-04-17 08:49 | Physical Therapy Daily Note ---
PT Daily Note-Current Subjective Pt laying Supine in bed upon arrival. Pt agrees to PT but reports "I messed up this morning with breakfast and ate cereal and milk after having a Gastric Sleeve. I'm paying for it now. I might be in the bathroom a lot." Pain Numeric Pain Scale: 9 Location Body Site: Abdomen Pain Description: Cramping Mental Status Patient Orientation: Person, Place, Time, Situation Transfers Therapy Code Descriptions/Definitions Functional [place] Measure: 0=Not Assessed/NA 4=Minimal Assistance 1=Total Assistance 5=Supervision or Setup 2=Maximal Assistance 6=Modified [place] 3=Moderate Assistance 7=Complete [place] Therapy Quality Codes: 6 Independent with activity with or without an assistive device 5 Patient requires set up or clean up by helper. Patient completes activity by themselves 4 Supervision or touching assist (CGA). [place] provide cues , steadying assist 3 The helper provides less than half the effort to complete the activity 2 The helper provides more than half the effort to complete the activity 1 Dependent. The helper does all the effort to complete an activity 7 Patient refused to complete or attempt activity 9 The patient did not perform the activity before the current illness or injury 88 Not attempted due to Medical conditions or safety concerns Transfers (B, C, W/C) (FIM): 6 Scootin Rollin Roll Left to Right (QC): 7 Supine to/from Sit: 7 Sit to/from Stand: 6 Sit to Lying (QC): 6 Sit to Stand (QC): 6 Chair/Ezi-ke-Yiuwf Xfer(QC): 6 Bed to/from Chair: 6 Weight Bearing Right Lower Extremity: Right Full Weight Bearing Left Lower Extremity: Left Full Weight Bearing Wheelchair Training Does the Pt Use a Wheelchair?: No Exercises Seated Therapy Exercises: Ankle pumps, Long arc quads, Hip flexion, Kicking activity Seated Reps: 20 Treatments Pt completes bed mobility and transfers from Supine to EOB to Standing. Pt completes Seated Ex in recliner. Pt spends much of tx in restroom with cramping & constipation. Pt will try to complete rest of FIM scoring this afternoon, hopefully feeling better. Assessment Current Status: Fair Progress Pt was not feeling well this morning. Pt spent a lot of time in the restroom. PT Short Term Goals Short Term Goals Time Frame: Apr 13, 2018 Transfers (B,C,W/C) (FIM): 5 Gait (FIM): 6 Gait Distance Comment: 200' Gait Level of Assist: 6 Gait Assistive Device: FWW PT Senior Care Goals Unit Educator Goals PT Senior Care Goals Time Frame: Apr 27, 2018 Transfers (B,C,W/C) (FIM): 6 Sit to Lying (QC): 6 Lying-Sitting on Side/Bed(QC): 6 Sit to Stand (QC): 6 Rollin Roll Left to Right (QC): 6 Chair/Bsk-xc-[place] Xfer(QC): 6 Car Transfer (QC): 6 Gait (FIM): 6 Distance: 300' Walk 10 feet (QC): 6 Walk 10ft-Uneven Surface(QC): 6 Walk 50ft with 2 Turns (QC): 6 Walk 150 ft (QC): 6 Gait Level of Assist: 6 Gait Assistive Device: FWW Stairs (FIM): 2 # of Steps: 4 1 Step (curb) (QC): 4 4 Steps (QC): 4 Stairs Level Of Assist: 5 PT Plan Problem List Problem List: Activity Tolerance Treatment/Plan Treatment Plan: Continue Plan of Care Treatment Plan: Bed Mobility, Concurrent Therapy, Education, Functional Activity Oren, Functional Strength, Group Therapy, Gait, Safety, Therapeutic Exercise, Transfers Treatment Duration: Apr 27, 2018 Frequency: At least 5 of 7 days/Wk (IRF) Estimated Hrs Per Day: 1.5 hours per day Patient and/or Family Agrees t: Yes Safety Risks/Education Patient Education: Gait Training, Transfer Techniques, Correct Positioning, Safety Issues Teaching Recipient: Patient Teaching Methods: Discussion Response to Teaching: Verbalize Understanding Time/GCodes Time In: 800 Time Out: 900 Total Billed Treatment Time: 60 Total Billed Treatment 1, FA x3 (40m) & EX (20m) G Codes Necessary: GABI Infante SECURITY TEST ENGINEER Apr 17, 2018 08:49
[2018-04-17] MEDS: RT-ALBUTEROL SULF 2.5 MG/3 ML PRE-MIX VIAL INH SCH ×2 (08:59→19:40)
[2018-04-17] MEDS: RT-BUDESONIDE NEBS 0.5 MG/2ML (PULMICORT) AMP INH SCH ×2 (09:07→19:40)
[2018-04-17] MEDS: ENOXAPARIN 40 MG/0.4 ML (LOVENOX) SYR SC SCH ×2 (09:16→20:31)
[2018-04-17] MEDS: MUPIROCIN 2% OINT 22 GM (BACTROBAN) TUBE TOP SCH ×2 (09:17→19:16)
[2018-04-17] MEDS: NYSTATIN CREAM (MYCOSTATIN) 30 GM TUBE TP SCH ×3 (09:17→20:32)
--- NOTE | 2018-04-17 10:55 | Occupational Ther Daily Note ---
OT Current Status-Daily Note Subjective Pt sitting in chair, agrees to treatment. Pt states he ate cereal and milk for breakfast and should not have done that after having a gastric sleeve. Pt reports pain in back, but does not rate. Mental Status/Objective Therapy Code Descriptions/Definitions Functional [place] Measure: 0=Not Assessed/NA 4=Minimal Assistance 1=Total Assistance 5=Supervision or Setup 2=Maximal Assistance 6=Modified [place] 3=Moderate Assistance 7=Complete [place] ADL-Treatment Pt sit to stand without assist. Retrieved clothing from closet without assist. Gait to restroom without LOB. Pt doffed clothing without assist. Transfer to walk in shower with modified independence. Pt able to wash/dry all areas. Lays supine in bed in order to dry under abdomen. Don pullover shirt with modified independence. Pt able to thread bilateral LE into underwear and pants without assist. Stood with good balance for pant hike. Don bilateral socks while seated EOB. Does not require adaptive equipment. Stood at sink to comb hair and brush teeth independently. Pt demonstrates ability to perform toilet transfer with modified independence using grab bars. Pt states he has been getting up to restroom without assist and has been able to perform hygiene and clothing management without assistance. Pt transferred to chair with modified independence. Therapy Code Descriptions/Definitions Functional [place] Measure: 0=Not Assessed/NA 4=Minimal Assistance 1=Total Assistance 5=Supervision or Setup 2=Maximal Assistance 6=Modified [place] 3=Moderate Assistance 7=Complete [place] Therapy Quality Codes: 6 Independent with activity with or without an assistive device 5 Patient requires set up or clean up by helper. Patient completes activity by themselves 4 Supervision or touching assist (CGA). [place] provide cues , steadying assist 3 The helper provides less than half the effort to complete the activity 2 The helper provides more than half the effort to complete the activity 1 Dependent. The helper does all the effort to complete an activity 7 Patient refused to complete or attempt activity 9 The patient did not perform the activity before the current illness or injury 88 Not attempted due to Medical conditions or safety concerns Eating (FIM): 7 (Pt reports feeding self and managing containers without assist ) Eating (QC): 6 Grooming (FIM): 7 Oral Hygiene (QC): 6 Bathing (FIM): 6 Shower/Bathe Self (QC): 6 Upper Body (FIM): 6 Upper Body Dressing (QC): 6 Lower Body Dressing (FIM): 6 Lower Body Dressing (QC): 6 On/Off Footwear (QC): 6 Toileting (FIM): 6 (by report) Toileting Hygiene (QC): 6 Toilet/Commode Transfer (FIM): 6 Toilet Transfer (QC): 6 Shower Transfer(FIM): 6 Other Treatment Pt completed bilateral UE exercises to increase strength needed for ADLs and transfers. Pt performed four exercises x15 reps using moderate resistance (red) theraband. Rest breaks between exercises. Pt sitting in chair with needs met after session. OT Short Term Goals Short Term Goals Transfers (B,C,W/C) (FIM): 5 1=Demonstrate adherence to instructed precautions during ADL tasks. 2=Patient will verbalize/demonstrate understanding of assistive devices/ modifications for ADL. 3=Patient will improve strength/tolerance for activity to enable patient to perform ADL's. OT Sizing Machine And Drier Operator Goals Sizing Machine And Drier Operator Goals Time Frame: Apr 27, 2018 Eating (FIM): 7 Eating (QC): 6 Groomin Oral Hygiene (QC): 6 Bathing(FIM): 6 Shower/Bathe Self (QC): 6 Upper Body Dressing(FIM): 6 Upper Body Dressing (QC): 6 Lower Body Dressing(FIM): 6 Lower Body Dressing (QC): 6 On/Off Footwear (QC): 6 Toileting(FIM): 6 Toileting Hygiene (QC): 6 Toilet/Commode Transfer(FIM): 6 Toilet/Commode Transfer (QC): 6 Shower Transfer(FIM): 6 Additional Goals: 1-Demonstrate ADL Tasks, 2-Verbalize Understanding, 3- ImproveStrength/Oren 1=Demonstrate adherence to instructed precautions during ADL tasks. 2=Patient will verbalize/demonstrate understanding of assistive devices/ modifications for ADL. 3=Patient will improve strength/tolerance for activity to enable patient to perform ADL's. OT Education/Plan Discharge Recommendations Plan/Recommendations: Continue POC Treatment Plan/Plan of Care Patient would benefit from OT for education, treatment and training to promote independence in ADL's, mobility, safety and/or upper extremity function for ADL' s. Plan of Care: ADL Retraining, Functional Mobility, Group Exercise/Act as Ind, UE Funct Exercise/Act Treatment Duration: Apr 27, 2018 Frequency: At least 5 of 7 days/Wk (IRF) Estimated Hrs Per Day: 1.5 hours per day Rehab Potential: Good Time/GCodes Start Time: 09:15 Stop Time: 10:15 Total Time Billed (hr/min): 60 Billed Treatment Time 1 visit, ADLx3(45minutes), EX(15minutes) HI FRITZ OT Apr 17, 2018 10:55
--- NOTE | 2018-04-17 12:04 | D/C HH Face to Face Order ---
D/C Face to Face Orders Instructions for Patient Via [facility], Patient Instructions/FollowUp: Dr. Dockery on 04/23 at 1140 Physician to follow Patient: Dr. Dockery Discharge Diet for Home: Eat Small Frequent Meals, other diet (Gastric diet) Patient Data-Allergies,Ht & Wt Patient Allergies: Coded Allergies: No Known Drug Allergies (Unverified , 03/20/17) Height (Feet): 5 Height (Inches): 9.00 Weight (Pounds): 293 Weight (Ounces): 11.2 Home Health Need/Face to Face Date of Face to Face: Apr 18, 2018 Clinical Findings: Generalized weakness and fatigue, Muscle weakness I have seen Pt [id number]: Yes Discharged To: Home Diagnosis/Conditions: COPD myopathy Patient is Homebound due to: Muscle weakness, Shortness of breath/distress Homebound Status Due to the above stated illness, injury or surgical procedure (medical condition or diagnosis) and associated clinical findings, the patient is homebound because of his/her inability to leave home except with aid of a supportive device and/or person AND leaving the home requires a considerable and taxing effort or is medically contraindicated. Pt req the following assistanc: Walker Home Health Nursing Orders Home Health Services Order: Nursing Services, Physical Therapy-Evaluate & Treat Home Health Infusion Therapy Line Type: Midline Site Location: Arm-Upper Therapy Orders Therapy Orders: Physical Therapy Therapy Specific Orders: Eval assistive deivces, Teach enviro modifications/ safety, Gait training, Increase strength/endurance, Restore ROM Certify Stmt I certify that this patient is under my care and that I, a nurse practitioner or a physician; a treasury assistant working with me, had a face to face encounter that - meets the physician face to face encounter requirements with this patient as dated. I personally scribed for CATHY CASTELLANOS MD ([place]) on 04/17/18 at 12:04. Electronically submitted by Nella Bueno ([id number]). CATHY CASTELLANOS MD Apr 17, 2018 12:04
[2018-04-17] MEDS: ARFORMOTEROL 15 MCG/2 ML (BROVANA) INH SOLUTIION IH SCH ×2 (12:19→19:40)
--- NOTE | 2018-04-17 12:52 | Occupational Ther Daily Note ---
OT Current Status-Daily Note Subjective Pt in bed, agrees to treatment. Requests pain pill. RN notified. Mental Status/Objective Therapy Code Descriptions/Definitions Functional [place] Measure: 0=Not Assessed/NA 4=Minimal Assistance 1=Total Assistance 5=Supervision or Setup 2=Maximal Assistance 6=Modified [place] 3=Moderate Assistance 7=Complete [place] ADL-Treatment Therapy Code Descriptions/Definitions Functional [place] Measure: 0=Not Assessed/NA 4=Minimal Assistance 1=Total Assistance 5=Supervision or Setup 2=Maximal Assistance 6=Modified [place] 3=Moderate Assistance 7=Complete [place] Therapy Quality Codes: 6 Independent with activity with or without an assistive device 5 Patient requires set up or clean up by helper. Patient completes activity by themselves 4 Supervision or touching assist (CGA). [place] provide cues , steadying assist 3 The helper provides less than half the effort to complete the activity 2 The helper provides more than half the effort to complete the activity 1 Dependent. The helper does all the effort to complete an activity 7 Patient refused to complete or attempt activity 9 The patient did not perform the activity before the current illness or injury 88 Not attempted due to Medical conditions or safety concerns Other Treatment Supine to sit without assistance. Sit to stand independently. Gait to therapy gym with FWW, slow pace. Rest break upon arrival. Pt completed arm bike x15 minutes to increase overall strength and activity tolerance needed for functional task completion. Pt performed activity with minimal resistance and slow pace. Two rest breaks taken during activity, requires increased time to complete. Pt returned to room using FWW. Sitting EOB with needs met after session. Plan is for pt to d/c home tomorrow. Pt has no questions or concerns at this time. OT Short Term Goals Short Term Goals Transfers (B,C,W/C) (FIM): 5 1=Demonstrate adherence to instructed precautions during ADL tasks. 2=Patient will verbalize/demonstrate understanding of assistive devices/ modifications for ADL. 3=Patient will improve strength/tolerance for activity to enable patient to perform ADL's. OT Framing Mechanic Goals Framing Mechanic Goals Time Frame: Apr 27, 2018 Eating (FIM): 7 Eating (QC): 6 Groomin Oral Hygiene (QC): 6 Bathing(FIM): 6 Shower/Bathe Self (QC): 6 Upper Body Dressing(FIM): 6 Upper Body Dressing (QC): 6 Lower Body Dressing(FIM): 6 Lower Body Dressing (QC): 6 On/Off Footwear (QC): 6 Toileting(FIM): 6 Toileting Hygiene (QC): 6 Toilet/Commode Transfer(FIM): 6 Toilet/Commode Transfer (QC): 6 Shower Transfer(FIM): 6 Additional Goals: 1-Demonstrate ADL Tasks, 2-Verbalize Understanding, 3- ImproveStrength/Oren 1=Demonstrate adherence to instructed precautions during ADL tasks. 2=Patient will verbalize/demonstrate understanding of assistive devices/ modifications for ADL. 3=Patient will improve strength/tolerance for activity to enable patient to perform ADL's. OT Education/Plan Discharge Recommendations Plan/Recommendations: Continue POC Treatment Plan/Plan of Care Patient would benefit from OT for education, treatment and training to promote independence in ADL's, mobility, safety and/or upper extremity function for ADL' s. Plan of Care: ADL Retraining, Functional Mobility, Group Exercise/Act as Ind, UE Funct Exercise/Act Treatment Duration: Apr 27, 2018 Frequency: At least 5 of 7 days/Wk (IRF) Estimated Hrs Per Day: 1.5 hours per day Rehab Potential: Good Time/GCodes Start Time: 11:00 Stop Time: 11:30 Total Time Billed (hr/min): 30 Billed Treatment Time 1 visit, EXx2(30minutes) HI FRITZ OT Apr 17, 2018 12:52
--- NOTE | 2018-04-17 15:24 | Physical Therapy Daily Note ---
PT Daily Note-Current Subjective Pt sitting up in bed upon arrival. Pt agrees to finish FIM Scoring from this morning. Pain Numeric Pain Scale: 4 Pain Description: Cramping Mental Status Patient Orientation: Person, Place, Time, Situation Transfers Therapy Code Descriptions/Definitions Functional [place] Measure: 0=Not Assessed/NA 4=Minimal Assistance 1=Total Assistance 5=Supervision or Setup 2=Maximal Assistance 6=Modified [place] 3=Moderate Assistance 7=Complete [place] Therapy Quality Codes: 6 Independent with activity with or without an assistive device 5 Patient requires set up or clean up by helper. Patient completes activity by themselves 4 Supervision or touching assist (CGA). [place] provide cues , steadying assist 3 The helper provides less than half the effort to complete the activity 2 The helper provides more than half the effort to complete the activity 1 Dependent. The helper does all the effort to complete an activity 7 Patient refused to complete or attempt activity 9 The patient did not perform the activity before the current illness or injury 88 Not attempted due to Medical conditions or safety concerns Transfers (B, C, W/C) (FIM): 6 Scootin Rollin Roll Left to Right (QC): 7 Supine to/from Sit: 7 Sit to/from Stand: 6 Sit to Lying (QC): 6 Sit to Stand (QC): 6 Chair/Lla-rh-Gzsfz Xfer(QC): 6 Bed to/from Chair: 6 Weight Bearing Right Lower Extremity: Right Full Weight Bearing Left Lower Extremity: Left Full Weight Bearing Gait Training Does the Patient Walk?: Yes Gait (FIM): 6 Distance (FIM): 3=150 ft Distance: 150' Walk 10 feet (QC): 6 Walk 50 ft with 2 Turns(QC): 6 Walk 150 ft (QC): 6 Walking 10ft/uneven surface-QC: 6 Gait Level of Assist: 6 Gait Persons Needed: 1 Gait Assistive Device: FWW Pt uses FWW for fatigue. Wheelchair Training Does the Pt Use a Wheelchair?: No Stair Training Stair Training: Handrails/: 2 handrails Stairs (FIM): 5 #of Steps: 8 1 Step (curb) (QC): 6 4 Steps (QC): 6 Stairs: Pattern: Reciprocal Level of Assist: 6 Balance Picking up an Object (QC): 6 Treatments [place] [facility] mobility is Indep. Pt able to walk using FWW in hallway as well as across varying surface at Mod I. Pt completes 2 sets of stairs and car transfer. Pt is up Ad ernie in room. Pt returns to room at end of tx to rest in bed with all needs met. Assessment Current Status: Good Progress Pt has improved while in ARU. PT Short Term Goals Short Term Goals Time Frame: Apr 13, 2018 Transfers (B,C,W/C) (FIM): 5 Gait (FIM): 6 Gait Distance Comment: 200' Gait Level of Assist: 6 Gait Assistive Device: FWW PT [employer] Goals [employer] Goals PT [facility] Goals Time Frame: Apr 27, 2018 Transfers (B,C,W/C) (FIM): 6 Sit to Lying (QC): 6 Lying-Sitting on Side/Bed(QC): 6 Sit to Stand (QC): 6 Rollin Roll Left to Right (QC): 6 Chair/Bhy-hm-Ozesh Xfer(QC): 6 Car Transfer (QC): 6 Gait (FIM): 6 Distance: 300' Walk 10 feet (QC): 6 Walk 10ft-Uneven Surface(QC): 6 Walk 50ft with 2 Turns (QC): 6 Walk 150 ft (QC): 6 Gait Level of Assist: 6 Gait Assistive Device: FWW Stairs (FIM): 2 # of Steps: 4 1 Step (curb) (QC): 4 4 Steps (QC): 4 Stairs Level Of Assist: 5 PT Plan Problem List Problem List: Activity Tolerance Treatment/Plan Treatment Plan: Continue Plan of Care Treatment Plan: Bed Mobility, Concurrent Therapy, Education, Functional Activity Oren, Functional Strength, Group Therapy, Gait, Safety, Therapeutic Exercise, Transfers Treatment Duration: Apr 27, 2018 Frequency: At least 5 of 7 days/Wk (IRF) Estimated Hrs Per Day: 1.5 hours per day Patient and/or Family Agrees t: Yes Safety Risks/Education Patient Education: Correct Positioning, Safety Issues Teaching Recipient: Patient Teaching Methods: Discussion Response to Teaching: Verbalize Understanding Time/GCodes Time In: 1345 Time Out: 1415 Total Billed Treatment Time: 30 Total Billed Treatment 1, FA x2 (30m) G Codes Necessary: GABI Infante RECEPTION CLERK Apr 17, 2018 15:24
[2018-04-17 18:00] VITALS: BP 110/75
--- NOTE | 2018-04-17 19:53 | PM & R (SOAP) Progress Note ---
Subjective This was a face to face visit with the patient. Date Seen by Provider: Apr 17, 2018 Time Seen by Provider: 07:50 Subjective/Events-last exam Patient was seen in his room this AM Patient modified Independent for transfers Peripheral edema decreased Date Identified: Apr 17, 2018 Time Identified: 19:50 Medication Intervention: Discharge meds reviewed Objective Physician Exam Last Set of Vital Signs Vital Signs Date Time Temp Pulse Resp B/P (MAP) Pulse Ox O2 Delivery O2 Flow Rate FiO2 04/17/18 19:43 91 Room Air 04/17/18 18:00 98.0 90 18 110/75 (87) 04/17/18 09:02 21 Capillary Refill : I&O Intake and Output 04/17/18 00:00 Intake Total 1560 ml Balance 1560 ml Intake Oral 1560 ml # Voids 10 General: Alert, Oriented X3, Cooperative, No Acute Distress HEENT: Atraumatic, PERRLA, EOMI, Mucous Memb Moist/[place] Neck: Supple, No JVD Lungs: Other (decreased breath sounds) Heart: Regular Rate Abdomen: Normal Bowel Sounds, Soft, No Tenderness Extremities: Other ( edema improving) Neuro: Other (Sensation decreased slightly to light touch in ankles Strength 3- /5 prox lower limbs 4-/5 distal) Psych/Mental Status: Mental Status NL Results Lab Data Laboratory Tests 04/15/18 04:20: Sodium Level 136, Potassium Level 3.5L, Chloride Level 93L, Carbon Dioxide Level 30, Anion Gap 13, Blood Urea Nitrogen 19H, Creatinine 1.22, Estimat Glomerular Filtration Rate 59, BUN/Creatinine Ratio 16, Glucose Level 103, Calcium Level 9.2, Magnesium Level 1.9 04/16/18 05:30: Sodium Level 137, Potassium Level 3.6, Chloride Level 94L, Carbon Dioxide Level 31, Anion Gap 12, Blood Urea Nitrogen 19H, Creatinine 1.25, Estimat Glomerular Filtration Rate 57, BUN/Creatinine Ratio 15, Glucose Level 124H, Calcium Level 9.0 Microbiology 04/08/18 MRSA Screen - Final, Complete Assessment/Plan Assessment and Plan COPD myopathy improved Peripheral edema improved Sore throat resolved Hypalbuminemia improved with supplements HTN controlled with meds Asthma quiescent with treatments Chronic back pain HX of bilateral hip surgery and shoulder surgery Hx of recent bariatric surgery on modified diet Plan Discharge tomorrow to home with [facility] F/U with Dr Huerter et al see orders (1) Myopathy Assessment & Plan: Will go home with [facility] Status: Acute Co-Morbidities that are continuing to impact the rehab process: (include details ) CATHY CASTELLANOS MD Apr 17, 2018 19:53
[2018-04-17] MEDS ORDERED: FURO40TA4 PO (19:59)
[2018-04-17] MEDS ORDERED: HYDR-3816 PO (19:59)
[2018-04-17] MEDS ORDERED: POTA10TA6 PO (19:59)
[2018-04-17] MEDS ORDERED: Multivitamins/Minerals Therap PO (19:59)
[2018-04-18 03:27] VITALS: BP 106/70
[2018-04-18] MEDS: FUROSEMIDE 40 MG (LASIX) TAB PO SCH (06:28)
[2018-04-18] MEDS: KCL 10 MEQ TAB (MICRO K) PO SCH (06:28)
[2018-04-18] MEDS: HYDROcodone/APAP 7.5 MG/325 MG (LORTAB, LORCET PLUS) TABLET PO PRN (06:28)
[2018-04-18] MEDS: MULTIVIT W/MINERALS TAB (THERAGRAN M) PO SCH (06:28)
--- NOTE | 2018-04-18 08:10 | PM & R (SOAP) Progress Note ---
Subjective This was a face to face visit with the patient. Date Seen by Provider: Apr 18, 2018 Time Seen by Provider: 07:40 Subjective/Events-last exam Patient was seen in his room this AM Discharge meds discussed with patient.[place] for discharge today Date Identified: Apr 18, 2018 Time Identified: 07:40 Medication Intervention: Discharge meds reviewed Objective Physician Exam Last Set of Vital Signs Vital Signs Date Time Temp Pulse Resp B/P (MAP) Pulse Ox O2 Delivery O2 Flow Rate FiO2 04/18/18 03:27 98.4 89 20 106/70 (82) 93 Room Air 04/17/18 09:02 21 Capillary Refill : I&O Intake and Output 04/18/18 00:00 Intake Total 1410 ml Output Total 800 ml Balance 610 ml Intake Oral 1410 ml Output Urine Total 800 ml # Voids 3 # Bowel Movements 1 General: Alert, Oriented X3, Cooperative, No Acute Distress HEENT: Atraumatic, PERRLA, EOMI, Mucous Memb Moist/[place] Neck: Supple, No JVD Lungs: Other (decreased breath sounds) Heart: Regular Rate Abdomen: Normal Bowel Sounds, Soft, No Tenderness Extremities: Other (edema much improved no pitting non tense skin) Neuro: Other (Sensation decreased slightly to light touch in ankles Strength 3- /5 prox lower limbs 4-/5 distal) Psych/Mental Status: Mental Status NL Results Lab Data Laboratory Tests 04/16/18 05:30: Sodium Level 137, Potassium Level 3.6, Chloride Level 94L, Carbon Dioxide Level 31, Anion Gap 12, Blood Urea Nitrogen 19H, Creatinine 1.25, Estimat Glomerular Filtration Rate 57, BUN/Creatinine Ratio 15, Glucose Level 124H, Calcium Level 9.0 Microbiology 04/08/18 MRSA Screen - Final, Complete Assessment/Plan Assessment and Plan Discharge today to home with home health Edema much improved F/U with DR Perez et al See orders (1) Myopathy Assessment & Plan: [facility] Status: Acute Co-Morbidities that are continuing to impact the rehab process: (include details ) CATHY CASTELLANOS MD Apr 18, 2018 08:10
[2018-04-18] MEDS: NYSTATIN CREAM (MYCOSTATIN) 30 GM TUBE TP SCH (08:17)
[2018-04-18] MEDS: ENOXAPARIN 40 MG/0.4 ML (LOVENOX) SYR SC SCH (08:17)
[2018-04-18] MEDS: MUPIROCIN 2% OINT 22 GM (BACTROBAN) TUBE TOP SCH (08:18)
[2018-04-18] MEDS: RT-ALBUTEROL SULF 2.5 MG/3 ML PRE-MIX VIAL INH SCH (08:22)
[2018-04-18] MEDS: RT-BUDESONIDE NEBS 0.5 MG/2ML (PULMICORT) AMP INH SCH (08:22)
--- NOTE | 2018-04-18 10:30 | Therapy Team Discharge Summary ---
Therapy Discharge Summary Discharge Recommendations Date of Discharge Therapy D/C Recommendations: Home w/ Family Support, Home Independently Physical Therapy Patient came to rehab with COPD exacerbation. Upon evaluation patient performed bed mobility and transfers with SBA, car transfers mod assist (needs assist with both legs getting into and out), ambulated 200' with a rolling walker with SBA (including 50' with at least 2 turns of 90 degrees and 10' over an uneven surface), and went up and down 1 step using a rolling walker with SBA. Patient has been performing bed mobility and transfer training, balance and endurance training, functional strengthening, stair training, gait training , and education. Patient has made good progress and has met all of his fdc goals except for distance of ambulation. Now, patient performs bed mobility and transfers with mod I, ambulated 150' with a rolling walker with mod I (including 10' over an uneven surface and 50' with at least 2 turns of 90 degrees), and can go up and down 8 steps using 2 handrails with mod I. Patient is discharging from this facility today and will be discharged from PT at this time. Occupational Therapy Decreased Activ Tolerance, Decreased UE Strength, Dependent Transfers, Impaired I ADL's, Impaired Self-Care Skills PT Penitentiary Goals Penitentiary Goals PT [facility] Goals Time Frame: Apr 27, 2018 Transfers (B,C,W/C) (FIM): 6 Roll Left to Right (QC): 6 Sit to Lying (QC): 6 Lying-Sitting on Side/Bed(QC): 6 Sit to Stand (QC): 6 Chair/Dra-hn-Tyfcb Xfer(QC): 6 Car Transfer (QC): 6 Gait (FIM): 6 Distance: 300' Walk 10 feet (QC): 6 Walk 10ft-Uneven Surface(QC): 6 Walk 50ft with 2 Turns (QC): 6 Walk 150 ft (QC): 6 Gait Level of Assist: 6 Gait Assistive Device: FWW Stairs (FIM): 2 # of Steps: 4 1 Step (curb) (QC): 4 4 Steps (QC): 4 Stairs Level Of Assist: 5 OT Merchandise Pickup/Receiving Associate Goals Merchandise Pickup/Receiving Associate Goals Time Frame: Apr 27, 2018 Eating (FIM): 7 Eating (QC): 6 Oral Hygiene (QC): 6 Grooming(FIM): 6 Bathing(FIM): 6 Shower/Bathe Self (QC): 6 Upper Body Dressing(FIM): 6 Upper Body Dressing (QC): 6 Lower Body Dressing(FIM): 6 Lower Body Dressing (QC): 6 On/Off Footwear (QC): 6 Toileting(FIM): 6 Toileting Hygiene (QC): 6 Toilet/Commode Transfer(FIM): 6 Toilet/Commode Transfer (QC): 6 Shower Transfer(FIM): 6 Additional Goals: 1-Demonstrate ADL Tasks, 2-Verbalize Understanding, 3- ImproveStrength/Oren 1=Demonstrate adherence to instructed precautions during ADL tasks. 2=Patient will verbalize/demonstrate understanding of assistive devices/ modifications for ADL. 3=Patient will improve strength/tolerance for activity to enable patient to perform ADL's. Speech [facility]itentiary Goals Merchandise Pickup/Receiving Associate Goals Patient will be able to return home safely with improved strength and coordination. KIRA BECKER PT Apr 18, 2018 10:30
--- NOTE | 2018-04-18 11:40 | Therapy Team Discharge Summary ---
Therapy Discharge Summary Discharge Recommendations Date of Discharge Therapy D/C Recommendations: Home w/ Family Support, Home Independently Occupational Therapy Pt admitted to ARU following acute hospitalization for COPD exacerbation. On admission pt required max assist for bathing and toileting, and mod assist for LE dressing. Skilled OT intervention focused on ADL training, transfers, strengthening and safety. Pt made good progress with therapy and by discharge is completing eating and grooming independently and all other basic ADLs and transfers with modified independence. Pt met all OT LTG. Pt discharging home this date. D/C ARU OT at this time. Decreased Activ Tolerance, Decreased UE Strength, Dependent Transfers, Impaired I ADL's, Impaired Self-Care Skills PT [facility] Goals Shoe Cutter Goals PT Shoe Cutter Goals Time Frame: Apr 27, 2018 Transfers (B,C,W/C) (FIM): 6 Roll Left to Right (QC): 6 Sit to Lying (QC): 6 Lying-Sitting on Side/Bed(QC): 6 Sit to Stand (QC): 6 Chair/Oai-yc-Pninz Xfer(QC): 6 Car Transfer (QC): 6 Gait (FIM): 6 Distance: 300' Walk 10 feet (QC): 6 Walk 10ft-Uneven Surface(QC): 6 Walk 50ft with 2 Turns (QC): 6 Walk 150 ft (QC): 6 Gait Level of Assist: 6 Gait Assistive Device: FWW Stairs (FIM): 2 # of Steps: 4 1 Step (curb) (QC): 4 4 Steps (QC): 4 Stairs Level Of Assist: 5 OT [facility] Goals [facility] Goals Time Frame: Apr 27, 2018 Eating (FIM): 7 Eating (QC): 6 Oral Hygiene (QC): 6 Grooming(FIM): 6 Bathing(FIM): 6 Shower/Bathe Self (QC): 6 Upper Body Dressing(FIM): 6 Upper Body Dressing (QC): 6 Lower Body Dressing(FIM): 6 Lower Body Dressing (QC): 6 On/Off Footwear (QC): 6 Toileting(FIM): 6 Toileting Hygiene (QC): 6 Toilet/Commode Transfer(FIM): 6 Toilet/Commode Transfer (QC): 6 Shower Transfer(FIM): 6 Additional Goals: 1-Demonstrate ADL Tasks, 2-Verbalize Understanding, 3- ImproveStrength/Oren 1=Demonstrate adherence to instructed precautions during ADL tasks. 2=Patient will verbalize/demonstrate understanding of assistive devices/ modifications for ADL. 3=Patient will improve strength/tolerance for activity to enable patient to perform ADL's. Speech [facility] Goals Shoe Cutter Goals Patient will be able to return home safely with improved strength and coordination. HI FRITZ OT Apr 18, 2018 11:40
[2018-04-18 13:33] VITALS: BP 106/70
== END 2018-04-18 13:35 | disposition home health service (06) | DRG 92 ==
PROVIDERS: ADMIT Physical Medicine & Rehabilitation; ATTEND Physical Medicine & Rehabilitation
DX: G72.89 Other specified myopathies (principal); J44.1 Chronic obstructive pulmonary disease with (acute) exacerbation; I10 Essential (primary) hypertension; R60.0 Localized edema; E88.09 Other disorders of plasma-protein metabolism, not elsewhere classified; D50.9 Iron deficiency anemia, unspecified; M54.9 Dorsalgia, unspecified; F41.9 Anxiety disorder, unspecified; K59.00 Constipation, unspecified; G47.00 Insomnia, unspecified; G47.30 Sleep apnea, unspecified; Z22.322 Carrier or suspected carrier of Methicillin resistant Staphylococcus aureus; Z87.891 Personal history of nicotine dependence
CPT/HCPCS: 36415; 71046; 80048; 80053; 82728; 83540; 83735; 83880; 84134; 85007; 85025; 85027; 85045; 87081; 93005; 93970; 94640; 94760

== ENCOUNTER 2018-10-17 05:38 | Outpatient (CLI) | payer MEDICARE ==
[~2018-10-17] VITALS: Ht 175.3 cm; Wt 116.6 kg
[~2018-10-17 05:38] MED LIST changes: +ALPR0.5T7 PO; +FURO40TA4 PO; +Multivitamins/Minerals Therap PO; +NYST15CR TP; +POTA10TA6 PO; +POTA20TA8 PO
== END 2018-10-17 10:15 | disposition home or self-care (01) ==
LOC: PREOP 05:38
PROVIDERS: ATTEND Surgery
DX: Z01.818 Encounter for other preprocedural examination (principal)

== ENCOUNTER 2018-10-24 08:35 | Day surgery (SDC) | payer MEDICARE ==
[~2018-10-24] VITALS: Ht 175.3 cm; Wt 116.6 kg
[2018-10-24 08:40] VITALS: BP 126/77
[2018-10-24] MEDS ORDERED: LACTATED RINGERS 1,000 ML IV ONE (09:02)
[2018-10-24] MEDS ORDERED: fentaNYL INJECTION 100 MCG/2 ML AMP ONE ×3 (10:22→11:03)
[2018-10-24] MEDS ORDERED: LIDOCAINE JELLY 2% 6 ML SYRINGE ONE (10:22)
[2018-10-24] MEDS ORDERED: MIDAZOLAM 2 MG/2 ML (VERSED) VIAL ONE ×6 (10:22→11:05)
[2018-10-24 11:27] VITALS: BP 110/67
[2018-10-24 12:10] VITALS: BP 114/75
--- NOTE | 2018-10-24 12:10 | NUR ---
TAKING PO FLUIDS WITHOUT PROBLEM. HAS BEEN ALERT AND TALKATIVE THROUGHOUT RECOVERY. PASSING FLATUS AND DENIES COMPLAINTS. REQUESTING DISMISSAL. STEADY WHEN UP TO DRESS FOR HOME.
[2018-10-24 12:15] VITALS: BP 114/75
[2018-10-24] MEDS ORDERED: LACTATED RINGERS 1,000 ML IV STA (12:47)
[2018-10-24] MEDS ORDERED: fentaNYL INJECTION 100 MCG/2 ML AMP IVP ONE (13:00)
[2018-10-24] MEDS ORDERED: MIDAZOLAM 2 MG/2 ML (VERSED) VIAL IVP ONE (13:00)
[2018-10-24] MEDS ORDERED: LIDOCAINE JELLY 2% 6 ML SYRINGE MM PRN (13:00)
--- OUTSIDE RECORDS SUMMARY | 2018-10-24 13:33 | XMS REPORT ---
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 Name Role Phone Migration, Doctor Unavailable Unavailable PROBLEMS Type Condition ICD9-CM Code MTL18-UY Code Onset Dates Condition Status SNOMED Code Problem Insomnia G47.00 Active 535609443 Problem Shortness of breath R06.02 Active 574479172 Problem Low back pain M54.5 Active 120954571 Problem Anxiety F41.9 Active 02641489 Problem Obstructive sleep apnea syndrome G47.33 Active 68070356 Problem Chronic obstructive pulmonary disease, unspecified J44.9 Active 37347970 Problem Other emphysema J43.8 Active 99999521 Problem Gastroesophageal reflux disease without esophagitis K21.9 Active 344353687 Problem Other obesity due to excess calories E66.09 Active 94888166955936 Problem Chronic obstructive pulmonary disease with (acute) exacerbation J44.1 Active 056852138 Problem Thrombocytopenia D69.6 Active 343077404 Problem Essential hypertension I10 Active 88353698 Problem Benign prostatic hyperplasia with lower urinary tract symptoms N40.1 Active 169487052 Problem Acute exacerbation of chronic obstructive pulmonary disease (COPD) J44.1 Active 893439352 Problem Dysthymia F34.1 Active 99304031 Problem COPD exacerbation J44.1 Active 805610877 Problem Body mass index (BMI) of 50-59.9 in adult Z68.43 Active 809984443 Problem Mild intermittent asthma without complication J45.20 Active 438837511 Problem Primary insomnia F51.01 Active 3201773 Problem Other chronic pain G89.29 Active 11061428 Problem Status post cholecystectomy Z90.49 Active 523226446 Problem Hypoalbuminemia E88.09 Active 508844586 Problem Chronic bronchitis, unspecified chronic bronchitis type J42 Active 60266810 ALLERGIES No Information ENCOUNTERS Encounter Location Date Diagnosis [facility] [address] [facility] [id number] [address] Oct, [facility] [id number] [place] [address] September, [place] [id number] [place] [address] Aug, [place] [id number] [place] [address] Aug, Encounter for Medicare annual wellness exam Z00.00 ; Chronic obstructive pulmonary disease, unspecified J44.9 ; Other obesity due to excess calories E66.09 ; Gastroesophageal reflux disease without esophagitis K21.9 ; Primary insomnia F51.01 ; Benign prostatic hyperplasia with lower urinary tract symptoms N40.1 ; Frequency of micturition R35.0 and Colon cancer screening Z12.11 [place] [id number] [place] [address] Aug, Anxiety F41.9 [place] [address] [address] Jul, Primary insomnia F51.01 [place] [id number] [place] [address] 15 Jul, 2018 Anxiety F41.9 [place] [id number] [place] [address] 28 Jun, 2018 Primary insomnia F51.01 [place] [id number] [place] [address] 18 Jun, 2018 Chronic bronchitis, unspecified chronic bronchitis type J42 [place] [id number] [place] [address] 14 Jun, 2018 Anxiety F41.9 [facility] [id number] [place] [address] 12 Jun, 2018 COPD exacerbation J44.1 and BMI 40.0-44.9, adult Z68.41 [place] [id number] [place] [address] 05 Jun, 2018 Primary insomnia F51.01 [facility] [id number] [place] [address] 02 Jun, 2018 Wheezing R06.2 ; Cough R05 and BMI 40.0-44.9, adult Z68.41 [place] [id number] [place] [address] Jun, [place] [address] [address] May, [place] [address] [address] May, Chronic obstructive pulmonary disease, unspecified J44.9 ; Anxiety F41.9 and BMI 40.0-44.9, adult Z68.41 [place] [address] [address] May, Primary insomnia F51.[address] [address] Apr, [address] [address] Apr, Pneumonia due to infectious organism, unspecified laterality, unspecified part of lung J18.9 ; Hypoalbuminemia E88.09 ; Status post bariatric surgery Z98.84 and BMI 40.0-44.9, adult Z68.41 [place] [id number] [place] [address] Apr, Primary insomnia F51.[address] [address] Mar, Shortness of breath R06.02 ; Anasarca R60.1 ; Weakness R53.1 ; Status post cholecystectomy Z90.49 and History of pancreatitis Z87.19 [place] [id number] [place] [address] Mar, Primary insomnia F51.[address] [address] Feb, Pain in right knee M25.561 [place] [id number] [place] [address] Feb, Status post bariatric surgery Z98.84 ; Chronic obstructive pulmonary disease, unspecified J44.9 ; Pain in right knee M25.561 ; Pain in left knee M25.562 ; Other chronic pain G89.29 ; Encounter for immunization Z23 and BMI 45.0-49.9, adult Z68.42 [place] [address] [address] 16 Feb, 2018 Primary insomnia F51.01 [place] [address] [address] Jan, Anxiety F41.9 and Primary insomnia F51.01 [place] [address] [address] Dec, Anxiety F41.9 ; Primary insomnia F51.01 ; Low back pain M54.5 ; BMI 50.0-59.9, adult Z68.43 ; Shortness of breath R06.02 and Essential hypertension I10 [place] [address] [address] Dec, Low back pain M54.5 and Primary insomnia F51.01 [place] [id number] [place] [address] Dec, [place] [address] [address] Nov, Acute exacerbation of chronic obstructive pulmonary disease (COPD) J44.1 ; Primary insomnia F51.01 and Low back pain M54.5 [place] [address] [address] September, BMI 50.0-59.9, adult Z68.43 and Chronic obstructive pulmonary disease, unspecified COPD type J44.9 [place] [address] [address] Aug, Chronic obstructive pulmonary disease, unspecified J44.9 ; Primary insomnia F51.01 ; Low back pain M54.5 and BMI 50.0-59.9, adult Z68.43 [facility] [address] [address] Aug, Shortness of breath R06.02 ; Loose stools R19.5 and BMI 50.0-59.9, adult Z68.43 [place] [address] [address] Aug, Acute renal injury N17.9 and Thrombocytopenia D69.6 [place] [address] [address] May, [place] [address] [address] Apr, [facility] [address] [address] Mar, Acute exacerbation of chronic obstructive pulmonary disease (COPD) J44.1 ; BMI 50.0-59.9, adult Z68.43 and BMI 60.0-69.9, adult Z68.44 [place] [id number] [place] [address] Mar, [place] [address] [address] Feb, Right anterior shoulder pain M25.511 ; Encounter for immunization Z23 ; Other emphysema J43.8 ; Other obesity due to excess calories E66.09 ; Body mass index (BMI) of 50-59.9 in adult Z68.43 and Low back pain M54.5 [place] [address] [address] Feb, [facility] [address] [address] Feb, Low back pain M54.5 [place] [address] [address] 07 Jan, 2017 [facility] [id number] [place] [address] Jan, Low back pain M54.5 [facility] [id number] [place] [address] Dec, Shortness of breath R06.02 [facility] [id number] [place] [address] Dec, Low back pain M54.5 [facility] [id number] [place] [address] Nov, Low back pain M54.5 [facility] [id number] [place] [address] Oct, [facility] [id number] [place] [address] Oct, Low back pain M54.5 [facility] [id number] [place] [address] September, Low back pain M54.5 [facility] [id number] [place] [address] September, Sore throat J02.9 and Strep throat J02.0 [facility] [id number] [place] [address] September, [facility] [id number] [place] [address] Aug, Low back pain M54.5 [facility] [id number] [place] [address] Aug, Medicare welcome exam Z00.00 ; Prostate cancer screening Z12.5 ; Encounter for screening for lung cancer Z12.2 and Lipid screening Z13.220 [facility] [id number] [place] [address] Jul, [facility] [id number] [place] [address] Jul, Low back pain M54.5 [facility] [id number] [place] [address] Jul, [facility] [id number] [place] [address] Jun, [facility] [id number] [place] [address] Jun, Anxiety F41.9 and Low back pain M54.5 [facility] [id number] [place] [address] Jun, Shortness of breath R06.02 [facility] [id number] [place] [address] May, Anxiety F41.9 and Low back pain M54.5 [facility] [id number] [place] [address] May, [facility] [id number] [place] [address] Apr, [facility] [id number] [place] [address] Apr, Chronic obstructive pulmonary disease, unspecified J44.9 [facility] [id number] [place] [address] Apr, [facility] [id number] [place] [address] Apr, Chronic obstructive pulmonary disease, unspecified J44.9 [facility] [id number] [place] [address] Apr, [facility] [id number] [place] [address] Apr, Anxiety F41.9 and Low back pain M54.5 [facility] [id number] [place] [address] 17 Mar, 2016 Encounter for immunization Z23 ; Obstructive sleep apnea syndrome G47.33 ; Low back pain M54.5 and Anxiety F41.9 [facility] [id number] [place] [address] 14 Mar, 2016 Chronic obstructive pulmonary disease, unspecified J44.9 [facility] [id number] [place] [address] Mar, Chronic obstructive pulmonary disease, unspecified J44.9 [facility] [address] [address] Mar, Chronic obstructive pulmonary disease, unspecified J44.9 [facility] [id number] [place] [address] Feb, [facility] [address] [address] Feb, [facility] [id number] [place] [address] Feb, Chronic obstructive pulmonary disease, unspecified J44.9 [facility] [id number] [place] [address] Feb, [facility] [id number] [place] [address] Feb, Low back pain M54.5 ; Anxiety F41.9 and Bronchitis J40 [facility] [id number] [place] [address] 27 Jan, 2016 [facility] [id number] [place] [address] 15 Jan, 2016 Anxiety F41.9 [facility] [id number] [place] [address] 12 Jan, 2016 Chronic obstructive pulmonary disease, unspecified J44.9 [facility] [address] [address] Jan, Low back pain M54.5 [facility] [id number] [place] [address] Dec, Vertigo R42 [facility] [id number] [place] [address] Dec, [facility] [id number] [place] [address] Nov, [facility] [id number] [place] [address] Nov, Low back pain M54.5 and Anxiety F41.9 [facility] [id number] [place] [address] Nov, [facility] [id number] [place] [address] Nov, [facility] [id number] [place] [address] Oct, Low back pain M54.5 and Anxiety F41.9 [facility] [id number] [place] [address] September, [facility] [id number] [place] [address] Aug, Shortness of breath R06.02 [facility] [id number] [place] [address] Aug, Shortness of breath R06.02 [facility] [id number] [place] [address] Aug, [facility] [id number] [place] [address] Jul, Insomnia G47.00 and Shortness of breath R06.02 [facility] [id number] [place] [address] Jul, [facility] [place] [facility] [address] [id number] [place] [address] Jul, [facility] [place] [facility] [address] [id number] [place] [address] Jul, Bronchitis J40 [facility] [place] [facility] [address] [id number] [place] [address] Jul, [facility] [place] [facility] [address] [id number] [place] [address] Jun, [facility] [place] [facility] [address] [id number] [place] [address] Jun, [facility] [place] [facility] [address] [facility] [id number] [place] [address] May, [facility] [place] [facility] [address] [facility] [id number] [place] [address] May, [facility] [place] [facility] [address] [id number] [place] [address] Apr, [facility] [place] [facility] [address] [id number] [place] [address] Apr, [facility] [place] [facility] [address] [facility] [id number] [place] [address] Mar, [facility] [place] [facility] [address] [facility] [id number] [place] [address] Mar, [facility] [place] [facility] [address] [id number] [place] [address] Mar, [facility] [place] [facility] [address] [id number] [place] [address] Feb, [facility] [place] [facility] [address] [facility] [id number] [place] [address] Feb, [facility] [place] [facility] [address] [facility] [id number] [place] [address] Feb, Chronic obstructive pulmonary disease, unspecified J44.9 [facility] [place] [facility] [address] [address] Jan, [facility] [address] [address] Jan, [facility] [address] [address] Dec, [facility] [id number] [place] [address] Dec, [facility] [address] [address] Dec, High risk medication use V58.69 ; Back pain 724.5 ; Insomnia 780.52 ; Screening, lipid V77.91 and Screening for prostate cancer V76.44 [facility] [address] [address] Nov, [facility] [address] [address] Nov, [facility] [address] [address] Nov, [facility] [address], [place] [address] Oct, [facility] [address], [place] [address] Oct, [facility] [address] [address] September, [facility] [address], [place] [address] Aug, [facility] [address], [place] [address] Aug, [facility] [id number] [address] Jul, [facility] [id number] [place] [address] Jul, [facility] [place] [facility] [address] [id number] [place] [address] Jul, [facility] [place] [facility] [address] [id number] [place] [address] Jul, [facility] [place] [facility] [address] [id number] [place] [address] Jul, [facility] [place] [facility] [address] [id number] [place] [address] Jul, [facility] [place] [facility] [address] [id number] [place] [address] Jun, [facility] [place] [facility] [address] [facility] [id number] [place] [address] Jun, [facility] [place] [facility] [address] [facility] [id number] [place] [address] Jun, [facility] [place] [facility] [address] [facility] [id number] [place] [address] Jun, [facility] [place] [facility] [address] [facility] [id number] [place] [address] May, [facility] [place] [facility] [address] [facility] [id number] [place] [address] May, [facility] [place] [facility] [address] [facility] [id number] [place] [address] May, [facility] [place] [facility] [address] [id number] [place] [address] May, [facility] [place] [facility] [address] [id number] [place] [address] May, [facility] [place] [facility] [address] [facility] [id number] [place] [address] May, [facility] [place] [facility] [address] [facility] [id number] [place] [address] Apr, [facility] [place] [facility] [address] [id number] [place] [address] Apr, [facility] [place] [facility] [address] [id number] [place] [address] Mar, [facility] [place] [facility] [address] [id number] [place] [address] Mar, [facility] [place] [facility] [address] [id number] [place] [address] Mar, [facility] [place] [facility] [address] [id number] [place] [address] Mar, [facility] [place] [facility] [address] [id number] [place] [address] Feb, [facility] [place] [facility] [address] [id number] [place] [address] Feb, [facility] [place] [facility] [address] [id number] [place] [address] Feb, [facility] [place] [facility] [address] [id number] [place] [address] Feb, [facility] [place] [facility] [address] [id number], [place] [address] 23 Jan, 2014 [facility] [place] [facility] [address] [id number], [place] [address] 23 Jan, 2014 [facility] [place] [facility] [address] [id number], [place] [address] 17 Jan, 2014 [facility] [place] [facility] [address] [id number] [place] [address] 17 Jan, 2014 [facility] [place] [facility] [address] [id number] [place] [address] 02 Jan, 2014 [facility] [place] [facility] [address] [id number], [place] [address] 02 Jan, 2014 [facility] [place] [facility] [address] [id number], [place] [address] Jan, 2013 [facility] [place] [facility] [address] [id number] [place] [address] Jan, 2013 [facility] [place] [facility] [address] [id number] [place] [address] Jan, [facility] [place] [facility] [address] [id number] [place] [address] Jan, [facility] [place] [facility] [address] [id number] [place] [address] Dec, [facility] [place] [facility] [address] [id number] [place] [address] Dec, [facility] [place] [facility] [address] [id number] [place] [address] Nov, [facility] [place] [facility] [address] [id number] [place] [address] Nov, [facility] [place] [facility] [address] [id number] [place] [address] Nov, [facility] [place] [facility] [address] [id number] [place] [address] Nov, [facility] [place] [facility] [address] [id number] [place] [address] Nov, [facility] [place] [facility] [address] [id number] [place] [address] Nov, [facility] [place] [facility] [address] [id number] [place] [address] Nov, [facility] [place] [facility] [address] [id number] [place] [address] Nov, [facility] [place] [facility] [address] [id number] [place] [address] Nov, [facility] [place] [facility] [address] [id number] [place] [address] Nov, [facility] [place] [facility] [address] [id number] [place] [address] Nov, [facility] [place] [facility] [address] [id number] [place] [address] Nov, [facility] [place] [facility] [address] [id number] [place] [address] Oct, [facility] [place] [facility] [address] [id number] [place] [address] Oct, [facility] [place] [facility] [address] [id number] [place] [address] Oct, [facility] [place] [facility] [address] [id number] [place] [address] Oct, [facility] [place] [facility] [address] [id number] [place] [address] Oct, [facility] [place] [facility] [address] [id number] [place] [address] Oct, [facility] [place] [facility] [address] [id number] [place] [address] Oct, [facility] [place] [facility] [address] [id number] [place] [address] Oct, [facility] [place] [facility] [address] [id number] [place] [address] September, [facility] [place] [facility] [address] [id number] [place] [address] September, [facility] [place] [facility] [address] [id number] [place] [address] September, [facility] [place] [facility] [address] [id number] [place] [address] September, [facility] [place] [facility] [address] [id number] [place] [address] September, [facility] [place] [facility] [address] [id number] [place] [address] September, [facility] [place] [facility] [address] [id number] [place] [address] September, [facility] [place] [facility] [address] [id number] [place] [address] September, [facility] [place] [facility] [address] [id number] [place] [address] September, [facility] [place] [facility] [address] [id number] [place] [address] September, [facility] [place] [facility] [address] [id number] [place] [address] Aug, [facility] [place] [facility] [address] [id number] [place] [address] Aug, [facility] [place] [facility] [address] [id number] [place] [address] Aug, [facility] [place] [facility] [address] [id number] [place] [address] Aug, [facility] [place] [facility] [address] [id number] [place] [address] Aug, [facility] [place] [facility] [address] [id number] [place] [address] Aug, [facility] [place] [facility] [address] [id number] [place] [address] Aug, [facility] [place] [facility] [address] [id number] [place] [address] Aug, [facility] [place] [facility] [address] [id number] [place] [address] Aug, [facility] [place] [facility] [address] [id number] [place] [address] Aug, [facility] [place] [facility] [address] [id number] [place] [address] Aug, [facility] [place] [facility] [address] [id number] [place] [address] Aug, [facility] [place] [facility] [address] [id number] [place] [address] Aug, [facility] [place] [facility] [address] [id number] [place] [address] Aug, [facility] [place] [facility] [address] [id number] [place] [address] Jul, [facility] [place] [facility] [address] [id number] [place] [address] Jul, [facility] [place] [facility] [address] [id number] [place] [address] Jul, [facility] [place] [facility] [address] [facility] [id number] [place] [address] Jul, [facility] [place] [facility] [address] [facility] [id number] [place] [address] Jun, [facility] [place] [facility] [address] [id number] [place] [address] Jun, [facility] [place] [facility] [address] [id number] [place] [address] Jun, [facility] [place] [facility] [address] [facility] [id number] [place] [address] Jun, [facility] [place] [facility] [address] [id number] [place] [address] Jun, [facility] [place] [facility] [address] [id number] [place] [address] Jun, [facility] [place] [facility] [address] [id number] [place] [address] Jun, [facility] [place] [facility] [address] [facility] [id number] [place] [address] May, [facility] [place] [facility] [address] [id number] [place] [address] May, [facility] [place] [facility] [address] [id number] [place] [address] May, [facility] [place] [facility] [address] [id number] [place] [address] May, [facility] [place] [facility] [address] [id number] [place] [address] May, [facility] [place] [facility] [address] [id number] [place] [address] May, [facility] [place] [facility] [address] [id number] [place] [address] Apr, [facility] [place] [facility] [address] [id number] [place] [address] Apr, [facility] [place] [facility] [address] [id number] [place] [address] Mar, [facility] [place] [facility] [address] [id number], [place] [address] Mar, [facility] [place] [facility] [address] [id number] [place] [address] Mar, [facility] [place] [facility] [address] [id number], [place] [address] Mar, [facility] [place] [facility] [address] [id number], [place] [address] Mar, [facility] [place] [facility] [address] [id number], [place] [address] Mar, [facility] [place] [facility] [address] [id number] [place] [address] Feb, [facility] [place] [facility] [address] [id number], [place] [address] Feb, [facility] [place] [facility] [address] [id number], [place] [address] Feb, [facility] [place] [facility] [address] [id number] [place] [address] 18 Feb, 2013 [facility] [address] [id number] [place] [address] 16 Feb, 2013 [facility] [address] [id number] [place] [address] Jan, [facility] [address] [id number] [place] [address] Dec, [facility] [place] [facility] [address] [id number] [place] [address] Dec, [facility] [address] [id number] [place] [address] Oct, [facility] [address] [id number] [place] [address] Oct, [facility] [address] [id number] [place] [address] Oct, [facility] [address] [id number] [place] [address] September, [facility] [address] [id number] [place] [address] September, [facility] [address] [id number] [place] [address] Aug, [facility] [address] [id number] [place] [address] Aug, [facility] [place] [facility] [address] [id number] [place] [address] Jul, [facility] [place] [facility] [address] [id number] [place] [address] May, [facility] [place] [facility] [address] [id number] [place] [address] May, [facility] [address] [id number] [place] [address] Apr, [facility] [place] [facility] [address] [id number] [place] [address] Apr, [facility] [place] [facility] [address] [id number] [place] [address] Apr, [facility] [place] [facility] [address] [id number] [place] [address] Apr, [facility] [place] [facility] [address] [id number] [place] [address] Apr, [facility] [place] [facility] [address] [id number] [place] [address] Apr, [facility] [place] [facility] [address] [id number] [place] [address] Apr, [facility] [place] [facility] [address] [id number] [place] [address] Apr, [facility] [place] [facility] [address] [id number] [place] [address] Mar, [facility] [place] [facility] [address] [id number] [place] [address] Mar, [facility] [place] [facility] [address] [id number] [place] [address] Feb, [facility] [place] [facility] [address] [id number] [place] [address] Feb, [facility] [place] [facility] [address] [id number] [place] [address] Feb, [facility] [place] [facility] [address] [id number] [place] [address] Jan, [facility] [place] [facility] [address] [id number] [place] [address] Jan, [facility] [place] [facility] [address] [id number] [place] [address] Dec, [facility] [place] [facility] [address] [id number] [place] [address] Dec, [facility] [address] [id number] [place] [address] Dec, [facility] [place] [facility] [address] [id number] [place] [address] Dec, [facility] [place] [facility] [address] [id number] [place] [address] Nov, [facility] [place] [facility] [address] [id number] [place] [address] Nov, [facility] [place] [facility] [address] [id number] [place] [address] Nov, [facility] [place] [facility] [address] [id number] [place] [address] September, [facility] [place] [facility] [address] [id number] [place] [address] September, [facility] [place] [facility] [address] [id number] [place] [address] September, [facility] [place] [facility] [address] [id number] [place] [address] Aug, [facility] [place] [facility] [address] [id number] [place] [address] Jun, [facility] [place] [facility] [address] [id number] [place] [address] May, [facility] [place] [facility] [address] [id number] [place] [address] Apr, [facility] [place] [facility] [address] [id number] [place] [address] Apr, [facility] [place] [facility] [address] [id number] [place] [address] Apr, [facility] [place] [facility] [address] [id number] [place] [address] Mar, [facility] [place] [facility] [address] [id number] [place] [address] Mar, [facility] [address] [id number], [place] [address] Feb, [facility] [address] [id number], [place] [address] Feb, [facility] [address] [id number], [place] [address] Feb, [facility] [address] [id number], [place] [address] Feb, [facility] [address] [id number], [place] [address] Nov, [facility] [address] [id number], [place] [address] Oct, IMMUNIZATIONS No Known Immunizations SOCIAL HISTORY Never Assessed REASON FOR VISIT EMR-[facility] PLAN OF CARE VITAL SIGNS MEDICATIONS Unknown [...] History Right knee scope with meniscus repair 2017 Surgical History gastric sleeve 12/2017 Surgical History gallbladder Hospitalization History Hospitalization for surgery only Hospitalization History sepsis at [facility] 08/2017 Hospitalization History pancreatitis 03/2018
--- OUTSIDE RECORDS SUMMARY | 2018-10-24 13:34 | XMS REPORT ---
Author Author Migration, Doctor Organization [facility] Address Unknown Phone Unavailable Care Team Providers Care [employer] Principal Name Role Phone Migration, Doctor Unavailable Unavailable PROBLEMS Type Condition ICD9-CM Code GTS28-DI Code Onset Dates Condition Status SNOMED Code Problem Insomnia G47.00 Active 461429726 Problem Shortness of breath R06.02 Active 105010209 Problem Low back pain M54.5 Active 164066679 Problem Anxiety F41.9 Active 76195042 Problem Obstructive sleep apnea syndrome G47.33 Active 20520011 Problem Chronic obstructive pulmonary disease, unspecified J44.9 Active 62093889 Problem Other emphysema J43.8 Active 66360506 Problem Gastroesophageal reflux disease without esophagitis K21.9 Active 778657635 Problem Other obesity due to excess calories E66.09 Active 10422064942350 Problem Chronic obstructive pulmonary disease with (acute) exacerbation J44.1 Active 844249679 Problem Thrombocytopenia D69.6 Active 273826357 Problem Essential hypertension I10 Active 18802256 Problem Benign prostatic hyperplasia with lower urinary tract symptoms N40.1 Active 735620639 Problem Acute exacerbation of chronic obstructive pulmonary disease (COPD) J44.1 Active 860257221 Problem Dysthymia F34.1 Active 82637189 Problem COPD exacerbation J44.1 Active 538260739 Problem Body mass index (BMI) of 50-59.9 in adult Z68.43 Active 115576279 Problem Mild intermittent asthma without complication J45.20 Active 580121954 Problem Primary insomnia F51.01 Active 0662327 Problem Other chronic pain G89.29 Active 44805576 Problem Status post cholecystectomy Z90.49 Active 172735692 Problem Hypoalbuminemia E88.09 Active 735883762 Problem Chronic bronchitis, unspecified chronic bronchitis type J42 Active 21339335 ALLERGIES No Information ENCOUNTERS Encounter Location Date Diagnosis [facility], [place] [address] [facility] [id number], [place] [address] Oct, [facility], [place] [id number] [place] [address] Aug, [place] [id number] [place] [address] 24 Aug, 2018 Encounter for Medicare annual wellness exam Z00.00 ; Chronic obstructive pulmonary disease, unspecified J44.9 ; Other obesity due to excess calories E66.09 ; Gastroesophageal reflux disease without esophagitis K21.9 ; Primary insomnia F51.01 ; Benign prostatic hyperplasia with lower urinary tract symptoms N40.1 ; Frequency of micturition R35.0 and Colon cancer screening Z12.11 [place] [id number] [place] [address] 11 Aug, 2018 Anxiety F41.9 [place] [address] [address] 29 Jul, 2018 Primary insomnia F51.01 [place] [id number] [place] [address] 15 Jul, 2018 Anxiety F41.9 [place] [id number] [place] [address] 28 Jun, 2018 Primary insomnia F51.01 [place] [id number] [place] [address] 18 Jun, 2018 Chronic bronchitis, unspecified chronic bronchitis type J42 [place] [id number] [place] [address] 14 Jun, 2018 Anxiety F41.9 [facility] [id number] [place] [address] 12 Jun, 2018 COPD exacerbation J44.1 and BMI 40.0-44.9, adult Z68.41 [place] [id number] [place] [address] 05 Jun, 2018 Primary insomnia F51.01 [facility] [id number] [place] [address] 02 Jun, 2018 Wheezing R06.2 ; Cough R05 and BMI 40.0-44.9, adult Z68.41 [place] [id number] [place] [address] Jun, [place] [address] [address] May, [place] [address] [address] May, Chronic obstructive pulmonary disease, unspecified J44.9 ; Anxiety F41.9 and BMI 40.0-44.9, adult Z68.41 [place] [address] [address] May, Primary insomnia F51.01 [place] [address] [address] Apr, [place] [address] [address] Apr, Pneumonia due to infectious organism, unspecified laterality, unspecified part of lung J18.9 ; Hypoalbuminemia E88.09 ; Status post bariatric surgery Z98.84 and BMI 40.0-44.9, adult Z68.41 [place] [address] [address] 11 Apr, 2018 Primary insomnia F51.01 [place] [address] [address] Mar, Shortness of breath R06.02 ; Anasarca R60.1 ; Weakness R53.1 ; Status post cholecystectomy Z90.49 and History of pancreatitis Z87.19 [place] [address] [address] Mar, Primary insomnia F51.01 [place] [id number] [place] [address] Feb, Pain in right knee M25.561 [place] [address] [address] Feb, Status post bariatric surgery Z98.84 ; Chronic obstructive pulmonary disease, unspecified J44.9 ; Pain in right knee M25.561 ; Pain in left knee M25.562 ; Other chronic pain G89.29 ; Encounter for immunization Z23 and BMI 45.0-49.9, adult Z68.42 [place] [id number] [place] [address] Feb, Primary insomnia F51.01 [place] [id number] [place] [address] Jan, Anxiety F41.9 and Primary insomnia F51.01 [place] [id number] [place] [address] Dec, Anxiety F41.9 ; Primary insomnia F51.01 ; Low back pain M54.5 ; BMI 50.0-59.9, adult Z68.43 ; Shortness of breath R06.02 and Essential hypertension I10 [place] [id number] [place] [address] Dec, Low back pain M54.5 and Primary insomnia F51.01 [place] [id number] [place] [address] Dec, [place] [id number] [place] [address] Nov, Acute exacerbation of chronic obstructive pulmonary disease (COPD) J44.1 ; Primary insomnia F51.01 and Low back pain M54.5 [place] [id number] [place] [address] September, BMI 50.0-59.9, adult Z68.43 and Chronic obstructive pulmonary disease, unspecified COPD type J44.9 [place] [id number] [place] [address] Aug, Chronic obstructive pulmonary disease, unspecified J44.9 ; Primary insomnia F51.01 ; Low back pain M54.5 and BMI 50.0-59.9, adult Z68.43 [facility], [place] [id number] [place] [address] 16 Aug, 2017 Shortness of breath R06.02 ; Loose stools R19.5 and BMI 50.0-59.9, adult Z68.43 [place] [id number] [place] [address] 11 Aug, 2017 Acute renal injury N17.9 and Thrombocytopenia D69.6 [place] [address] [address] May, [place] [address] [address] Apr, [facility] [id number] [place] [address] Mar, Acute exacerbation of chronic obstructive pulmonary disease (COPD) J44.1 ; BMI 50.0-59.9, adult Z68.43 and BMI 60.0-69.9, adult Z68.44 [place] [id number] [place] [address] Mar, [place] [id number] [place] [address] Feb, Right anterior shoulder pain M25.511 ; Encounter for immunization Z23 ; Other emphysema J43.8 ; Other obesity due to excess calories E66.09 ; Body mass index (BMI) of 50-59.9 in adult Z68.43 and Low back pain M54.5 [facility], [place] [id number] [place] [address] Feb, [place] [address] [address] 04 Feb, 2017 Low back pain M54.5 [place] [id number] [place] [address] 07 Jan, 2017 [facility], [place] [address] [address] Jan, Low back pain M54.5 [facility], [place] [id number] [place] [address] Dec, Shortness of breath R06.02 [facility], [place] [address], [place] [address] Dec, Low back pain M54.5 [facility], [place] [id number] [place] [address] Nov, Low back pain M54.5 [facility], [place] [id number] [place] [address] Oct, [facility], [place] [id number] [place] [address] Oct, Low back pain M54.5 [facility], [place] [id number] [place] [address] September, Low back pain M54.5 [facility] [address] [place] [address] September, Sore throat J02.9 and Strep throat J02.0 [facility], [place] [address] [address] September, [facility], [place] [id number] [place] [address] Aug, Low back pain M54.5 [facility], [place] [address], [place] [address] Aug, Medicare welcome exam Z00.00 ; Prostate cancer screening Z12.5 ; Encounter for screening for lung cancer Z12.2 and Lipid screening Z13.220 [facility], [place] [address], [place] [address] Jul, [facility], [place] [id number] [place] [address] Jul, Low back pain M54.5 [facility], [place] [id number] [place] [address] Jul, [facility], [place] [address] [address] Jun, [facility], [place] [id number] [place] [address] Jun, Anxiety F41.9 and Low back pain M54.5 [facility], [place] [id number] [place] [address] Jun, Shortness of breath R06.02 [facility], [place] [address] [address] May, Anxiety F41.9 and Low back pain M54.5 [facility], [place] [address] [address] May, [facility], [place] [id number] [place] [address] Apr, [facility], [place] [id number] [place] [address] Apr, Chronic obstructive pulmonary disease, unspecified J44.9 [facility], [place] [id number] [place] [address] Apr, [facility], [place] [id number] [place] [address] Apr, Chronic obstructive pulmonary disease, unspecified J44.9 [facility], [place] [id number] [place] [address] Apr, [facility], [place] [id number] [place] [address] Apr, Anxiety F41.9 and Low back pain M54.5 [facility], [place] [id number] [place] [address] Mar, Encounter for immunization Z23 ; Obstructive sleep apnea syndrome G47.33 ; Low back pain M54.5 and Anxiety F41.9 [facility], [place] [id number] [place] [address] Mar, Chronic obstructive pulmonary disease, unspecified J44.9 [facility], [place] [address] [address] Mar, Chronic obstructive pulmonary disease, unspecified J44.9 [facility], [place] [id number] [place] [address] Mar, Chronic obstructive pulmonary disease, unspecified J44.9 [facility], [place] [address] [address] Feb, [facility], [place] [address] [address] Feb, [facility], [place] [address] [address] Feb, Chronic obstructive pulmonary disease, unspecified J44.9 [facility], [place] [id number] [place] [address] Feb, [facility], [place] [id number] [place] [address] Feb, Low back pain M54.5 ; Anxiety F41.9 and Bronchitis J40 [facility], [place] [id number] [place] [address] Jan, [facility], [place] [id number] [place] [address] 15 Jan, 2016 Anxiety F41.9 [facility], [place] [id number] [place] [address] Jan, Chronic obstructive pulmonary disease, unspecified J44.9 [facility], [place] [id number] [place] [address] 06 Jan, 2016 Low back pain M54.5 [facility], [place] [address] [place] [address] Dec, Vertigo R42 [facility], [place] [id number] [place] [address] Dec, [facility], [place] [id number] [place] [address] Nov, [facility], [place] [id number] [place] [address] Nov, Low back pain M54.5 and Anxiety F41.9 [facility], [place] [id number] [place] [address] Nov, [facility], [place] [id number] [place] [address] Nov, [facility], [place] [id number] [place] [address] Oct, Low back pain M54.5 and Anxiety F41.9 [facility], [place] [id number] [place] [address] September, [facility], [place] [id number] [place] [address] Aug, Shortness of breath R06.02 [facility], [place] [id number] [place] [address] Aug, Shortness of breath R06.02 [facility], [place] [id number] [place] [address] Aug, [facility], [place] [id number] [place] [address] Jul, Insomnia G47.00 and Shortness of breath R06.02 [facility], [place] [address] [place] [address] Jul, [facility], [place] [id number] [place] [address] Jul, [facility] [place] [facility] [address] [facility] [id number] [place] [address] Jul, Bronchitis J40 [facility] [place] [facility] [address] [facility] [id number] [place] [address] Jul, [facility] [place] [facility] [address] [facility] [id number] [place] [address] Jun, [facility] [place] [facility] [address] [facility] [id number] [place] [address] Jun, [facility] [place] [facility] [address] [facility] [id number] [place] [address] May, [facility] [place] [facility] [address] [facility] [id number] [place] [address] May, [facility] [place] [facility] [address] [place] [address] Apr, [facility] [place] [facility] [address] [facility] [id number] [place] [address] Apr, [facility] [place] [facility] [id number] [place] [address] Mar, [facility] [place] [facility] [address] [facility] [id number], [place] [address] Mar, [facility] [place] [facility] [address], [place] [address] Mar, [facility] [place] [facility] [address] [facility] [id number], [place] [address] Feb, [facility] [place] [facility] [address] [facility] [id number], [place] [address] Feb, [facility] [place] [facility] [address] [facility] [id number], [place] [address] Feb, Chronic obstructive pulmonary disease, unspecified J44.9 [facility] [place] [facility] [address], [place] [address] Jan, [facility] [id number] [address] Jan, [facility] [address] [address] Dec, [facility] [address], [place] [address] Dec, [facility] [address], [place] [address] Dec, High risk medication use V58.69 ; Back pain 724.5 ; Insomnia 780.52 ; Screening, lipid V77.91 and Screening for prostate cancer V76.44 [facility] [address], [place] [address] Nov, [facility] [address] [address] Nov, [facility] [id number] [address] Nov, [facility] [address] [address] Oct, [facility] [address] [address] Oct, [facility] [address], [place] [address] September, [facility] [id number], [place] [address] Aug, [facility] [id number] [address] Aug, [facility] [address], [place] [address] Jul, [facility] [id number], [place] [address] Jul, [facility] [id number] [place] [address] Jul, [facility] [place] [facility] [address] [id number] [place] [address] Jul, [facility] [place] [facility] [address] [id number] [place] [address] Jul, [facility] [place] [facility] [address] [id number] [place] [address] Jul, [facility] [place] [facility] [address] [id number] [place] [address] Jun, 2014 [facility] [place] [facility] [address] [id number] [place] [address] Jun, 2014 [facility] [place] [facility] [address] [facility] [id number] [place] [address] Jun, [facility] [place] [facility] [address] [facility] [id number] [place] [address] Jun, [facility] [place] [facility] [address] [id number] [place] [address] May, [facility] [place] [facility] [address] [facility] [id number] [place] [address] May, [facility] [place] [facility] [address] [facility] [id number] [place] [address] May, [facility] [place] [facility] [address] [facility] [id number] [place] [address] May, [facility] [place] [facility] [address] [id number] [place] [address] May, [facility] [place] [facility] [address] [id number] [place] [address] May, [facility] [place] [facility] [address] [facility] [id number] [place] [address] Apr, [facility] [place] [facility] [address] [facility] [id number] [place] [address] Apr, [facility] [place] [facility] [address] [id number] [place] [address] Mar, [facility] [place] [facility] [address] [id number] [place] [address] Mar, [facility] [place] [facility] [address] [id number] [place] [address] Mar, [facility] [place] [facility] [address] [id number] [place] [address] Mar, [facility] [place] [facility] [address] [id number] [place] [address] Feb, [facility] [place] [facility] [address] [id number] [place] [address] 16 Feb, 2014 [facility] [place] [facility] [address] [id number] [place] [address] Feb, [facility] [place] [facility] [address] [id number] [place] [address] Feb, [facility] [place] [facility] [address] [id number] [place] [address] 23 Jan, 2014 [facility] [place] [facility] [address] [id number] [place] [address] 23 Jan, 2014 [facility] [place] [facility] [address] [id number], [place] [address] 17 Jan, 2014 [facility] [place] [facility] [address] [id number], [place] [address] 17 Jan, 2013 [facility] [place] [facility] [address] [id number] [place] [address] 02 Jan, 2014 [facility] [place] [facility] [address] [id number] [place] [address] 02 Jan, 2013 [facility] [place] [facility] [address] [id number], [place] [address] 02 Jan, 2013 [facility] [place] [facility] [address] [id number], [place] [address] Jan, 2013 [facility] [place] [facility] [address] [id number] [place] [address] Jan, 2013 [facility] [place] [facility] [address] [id number] [place] [address] Jan, [facility] [place] [facility] [address] [id number] [place] [address] Dec, [facility] [place] [facility] [address] [id number] [place] [address] Dec, [facility] [place] [facility] [address] [id number] [place] [address] Nov, [facility] [place] [facility] [address] [id number] [place] [address] Nov, [facility] [place] [facility] [address] [id number] [place] [address] Nov, [facility] [place] [facility] [address] [id number] [place] [address] Nov, [facility] [place] [facility] [address] [id number] [place] [address] Nov, [facility] [place] [facility] [address] [id number] [place] [address] Nov, [facility] [place] [facility] [address] [id number] [place] [address] Nov, [facility] [place] [facility] [address] [id number] [place] [address] Nov, 2013 [facility] [place] [facility] [address] [id number] [place] [address] Nov, [facility] [place] [facility] [address] [id number] [place] [address] Nov, [facility] [place] [facility] [address] [id number] [place] [address] Nov, 2013 [facility] [place] [facility] [address] [id number] [place] [address] Nov, [facility] [place] [facility] [address] [id number] [place] [address] Oct, [facility] [place] [facility] [address] [id number] [place] [address] Oct, [facility] [place] [facility] [address] [id number] [place] [address] Oct, [facility] [place] [facility] [address] [id number] [place] [address] Oct, [facility] [place] [facility] [address] [id number] [place] [address] Oct, [facility] [place] [facility] [address] [id number] [place] [address] Oct, [facility] [place] [facility] [address] [id number] [place] [address] Oct, [facility] [place] [facility] [address] [id number] [place] [address] Oct, [facility] [place] [facility] [address] [id number] [place] [address] September, [facility] [place] [facility] [address] [id number] [place] [address] September, [facility] [place] [facility] [address] [id number] [place] [address] September, [facility] [place] [facility] [address] [id number] [place] [address] September, [facility] [place] [facility] [address] [id number] [place] [address] September, [facility] [place] [facility] [address] [id number] [place] [address] September, [facility] [place] [facility] [address] [id number] [place] [address] September, [facility] [place] [facility] [address] [id number] [place] [address] September, [facility] [place] [facility] [address] [id number] [place] [address] September, [facility] [place] [facility] [address] [id number] [place] [address] September, [facility] [place] [facility] [address] [id number] [place] [address] Aug, [facility] [place] [facility] [address] [id number] [place] [address] Aug, [facility] [place] [facility] [address] [id number] [place] [address] Aug, [facility] [place] [facility] [address] [id number] [place] [address] Aug, [facility] [place] [facility] [address] [id number] [place] [address] Aug, [facility] [place] [facility] [address] [id number] [place] [address] Aug, [facility] [place] [facility] [address] [id number] [place] [address] Aug, [facility] [place] [facility] [address] [id number] [place] [address] Aug, [facility] [place] [facility] [address] [id number] [place] [address] Aug, [facility] [place] [facility] [address] [id number] [place] [address] Aug, [facility] [place] [facility] [address] [id number] [place] [address] Aug, [facility] [place] [facility] [address] [id number] [place] [address] Aug, [facility] [place] [facility] [address] [id number] [place] [address] Aug, [facility] [place] [facility] [address] [id number] [place] [address] Aug, [facility] [place] [facility] [address] [id number] [place] [address] Jul, [facility] [place] [facility] [address] [id number] [place] [address] Jul, [facility] [place] [facility] [address] [id number] [place] [address] Jul, [facility] [place] [facility] [address] [id number] [place] [address] Jul, [facility] [place] [facility] [address] [id number] [place] [address] Jun, [facility] [place] [facility] [address] [id number] [place] [address] Jun, [facility] [place] [facility] [address] [id number] [place] [address] Jun, [facility] [place] [facility] [address] [id number] [place] [address] Jun, [facility] [place] [facility] [address] [facility] [id number] [place] [address] Jun, [facility] [place] [facility] [address] [facility] [id number] [place] [address] Jun, [facility] [place] [facility] [address] [id number] [place] [address] Jun, [facility] [place] [facility] [address] [id number] [place] [address] May, [facility] [place] [facility] [address] [id number] [place] [address] May, [facility] [place] [facility] [address] [id number] [place] [address] May, [facility] [place] [facility] [address] [id number] [place] [address] May, [facility] [place] [facility] [address] [id number] [place] [address] May, [facility] [place] [facility] [address] [id number] [place] [address] May, [facility] [place] [facility] [address] [id number] [place] [address] Apr, [facility] [place] [facility] [address] [id number] [place] [address] Apr, [facility] [place] [facility] [address] [id number] [place] [address] Mar, [facility] [place] [facility] [address] [id number] [place] [address] Mar, [facility] [place] [facility] [address] [id number], [place] [address] Mar, [facility] [place] [facility] [address] [id number] [place] [address] Mar, [facility] [place] [facility] [address] [id number], [place] [address] Mar, [facility] [place] [facility] [address] [id number], [place] [address] Mar, [facility] [place] [facility] [address] [id number], [place] [address] Feb, [facility] [place] [facility] [address] [id number] [place] [address] Feb, [facility] [place] [facility] [address] [id number], [place] [address] Feb, [facility] [place] [facility] [address] [id number], [place] [address] Feb, [facility] [place] [facility] [address] [id number] [place] [address] 16 Feb, 2013 [facility] [address] [id number] [place] [address] Jan, [facility] [address] [id number] [place] [address] Dec, [facility] [address] [id number] [place] [address] Dec, [facility] [address] [id number] [place] [address] Oct, [facility] [address] [id number] [place] [address] Oct, [facility] [address] [id number] [place] [address] Oct, [facility] [address] [id number] [place] [address] September, [facility] [address] [id number] [place] [address] September, [facility] [address] [id number] [place] [address] Aug, [facility] [address] [id number] [place] [address] Aug, [facility] [address] [id number] [place] [address] Jul, [facility] [place] [facility] [address] [id number] [place] [address] May, [facility] [place] [facility] [address] [id number] [place] [address] May, [facility] [place] [facility] [address] [id number] [place] [address] Apr, [facility] [address] [id number] [place] [address] Apr, [facility] [place] [facility] [address] [id number] [place] [address] Apr, [facility] [place] [facility] [address] [id number] [place] [address] Apr, [facility] [place] [facility] [address] [id number] [place] [address] Apr, [facility] [place] [facility] [address] [id number] [place] [address] Apr, [facility] [place] [facility] [address] [id number] [place] [address] Apr, [facility] [place] [facility] [address] [id number] [place] [address] Apr, [facility] [place] [facility] [address] [id number] [place] [address] Mar, [facility] [place] [facility] [address] [id number] [place] [address] Mar, [facility] [place] [facility] [address] [id number] [place] [address] Feb, [facility] [place] [facility] [address] [id number] [place] [address] Feb, [facility] [place] [facility] [address] [id number] [place] [address] Feb, [facility] [place] [facility] [address] [id number] [place] [address] Jan, [facility] [place] [facility] [address] [id number] [place] [address] Jan, [facility] [place] [facility] [address] [id number] [place] [address] Dec, [facility] [place] [facility] [address] [id number] [place] [address] Dec, [facility] [place] [facility] [address] [id number] [place] [address] Dec, [facility] [address] [id number] [place] [address] Dec, [facility] [place] [facility] [address] [id number] [place] [address] Nov, [facility] [place] [facility] [address] [id number] [place] [address] Nov, [facility] [place] [facility] [address] [id number] [place] [address] Nov, [facility] [place] [facility] [address] [id number] [place] [address] September, [facility] [place] [facility] [address] [id number] [place] [address] September, [facility] [place] [facility] [address] [id number] [place] [address] September, [facility] [place] [facility] [address] [id number] [place] [address] Aug, [facility] [place] [facility] [address] [id number] [place] [address] Jun, [facility] [place] [facility] [address] [id number] [place] [address] May, [facility] [place] [facility] [address] [id number] [place] [address] Apr, [facility] [place] [facility] [address] [id number] [place] [address] Apr, [facility] [place] [facility] [address] [id number] [place] [address] Apr, [facility] [place] [facility] [address] [id number] [place] [address] Mar, [facility] [place] [facility] [address] [id number] [place] [address] Mar, [facility] [place] [facility] [address] [facility] [id number] [place] [address] Feb, [facility] [place] [address] [facility] [id number], [place] [address] Feb, [facility] [place] [address] [id number], [place] [address] Feb, [facility] [place] [address] [id number], [place] [address] Feb, [facility] [place] [address] [id number], [place] [address] Nov, [facility] [place] [address] [id number], [place] [address] Oct, IMMUNIZATIONS No Known Immunizations SOCIAL HISTORY Never Assessed REASON FOR VISIT EMR-[facility] PLAN OF CARE VITAL SIGNS MEDICATIONS Unknown [...] for surgery only Hospitalization History sepsis at [facility] 08/2017 Hospitalization History pancreatitis 03/2018
--- OUTSIDE RECORDS SUMMARY | 2018-10-24 13:35 | XMS REPORT ---
Author Author Migration, Doctor Organization [facility] Address Unknown Phone Unavailable Care Team Providers Care Records Specialist Name Role Phone Migration, Doctor Unavailable Unavailable PROBLEMS Type Condition ICD9-CM Code BKO90-EC Code Onset Dates Condition Status SNOMED Code Problem Shortness of breath R06.02 Active 630832596 Problem Primary insomnia F51.01 Active 3090270 Problem Anxiety F41.9 Active 20162943 Problem Insomnia G47.00 Active 242772191 Problem Chronic obstructive pulmonary disease, unspecified J44.9 Active 25885759 Problem Low back pain M54.5 Active 588629909 Problem Other obesity due to excess calories E66.09 Active [id number] Problem Obstructive sleep apnea syndrome G47.33 Active 15070323 Problem Acute exacerbation of chronic obstructive pulmonary disease (COPD) J44.1 Active 598733601 Problem Chronic obstructive pulmonary disease with (acute) exacerbation J44.1 Active 916518591 Problem Thrombocytopenia D69.6 Active 771096930 Problem Chronic bronchitis, unspecified chronic bronchitis type J42 Active 79061997 Problem Body mass index (BMI) of 50-59.9 in adult Z68.43 Active 849850666 Problem Mild intermittent asthma without complication J45.20 Active 712517071 Problem COPD exacerbation J44.1 Active 425591494 Problem Other emphysema J43.8 Active 41801575 Problem Gastroesophageal reflux disease without esophagitis K21.9 Active 591959889 Problem Dysthymia F34.1 Active 68578292 Problem Essential hypertension I10 Active 05150128 Problem Other chronic pain G89.29 Active 55340310 Problem Status post cholecystectomy Z90.49 Active 570299030 Problem Hypoalbuminemia E88.09 Active 631303692 ALLERGIES No Information ENCOUNTERS Encounter Location Date Diagnosis [facility] [id number] [address] Aug, Encounter for Medicare annual wellness exam Z00.00 [facility] [address] [id number], [place] [address] Aug, Anxiety F41.9 [facility] [id number] [place] [address] Jul, Primary insomnia F51.01 [facility] [id number] [place] [address] Jul, Anxiety F41.9 [facility] [address] [address] Jun, Primary insomnia F51.01 [facility] [id number] [place] [address] 18 Jun, 2018 Chronic bronchitis, unspecified chronic bronchitis type J42 [place] [id number] [place] [address] 14 Jun, 2018 Anxiety F41.9 [facility] [id number] [place] [address] 12 Jun, 2018 COPD exacerbation J44.1 and BMI 40.0-44.9, adult Z68.41 [facility] [id number] [place] [address] 05 Jun, 2018 Primary insomnia F51.01 [facility] [id number] [place] [address] 02 Jun, 2018 Wheezing R06.2 ; Cough R05 and BMI 40.0-44.9, adult Z68.41 [facility] [id number] [place] [address] Jun, [facility] [id number] [place] [address] May, [facility] [id number] [place] [address] May, Chronic obstructive pulmonary disease, unspecified J44.9 ; Anxiety F41.9 and BMI 40.0-44.9, adult Z68.41 [facility] [id number] [place] [address] May, Primary insomnia F51.01 [place] [address] [address] Apr, [place] [id number] [place] [address] Apr, Pneumonia due to infectious organism, unspecified laterality, unspecified part of lung J18.9 ; Hypoalbuminemia E88.09 ; Status post bariatric surgery Z98.84 and BMI 40.0-44.9, adult Z68.41 [place] [address] [address] 11 Apr, 2018 Primary insomnia F51.01 [place] [id number] [place] [address] 28 Mar, 2018 Shortness of breath R06.02 ; Anasarca R60.1 ; Weakness R53.1 ; Status post cholecystectomy Z90.49 and History of pancreatitis Z87.19 [place] [id number] [place] [address] 13 Mar, 2018 Primary insomnia F51.01 [place] [id number] [place] [address] Feb, Pain in right knee M25.561 [place] [address] [address] 24 Feb, 2018 Status post bariatric surgery Z98.84 ; Chronic obstructive pulmonary disease, unspecified J44.9 ; Pain in right knee M25.561 ; Pain in left knee M25.562 ; Other chronic pain G89.29 ; Encounter for immunization Z23 and BMI 45.0-49.9, adult Z68.42 [place] [id number] [place] [address] 16 Feb, 2018 Primary insomnia F51.01 [place] [id number] [place] [address] 14 Jan, 2018 Anxiety F41.9 and Primary insomnia F51.01 [place] [address] [address] Dec, Anxiety F41.9 ; Primary insomnia F51.01 ; Low back pain M54.5 ; BMI 50.0-59.9, adult Z68.43 ; Shortness of breath R06.02 and Essential hypertension I10 [address] [address] Dec, Low back pain M54.5 and Primary insomnia F51.[address] [address] Dec, [address] [address] Nov, Acute exacerbation of chronic obstructive pulmonary disease (COPD) J44.1 ; Primary insomnia F51.01 and Low back pain M54.[address] [address] September, BMI 50.0-59.9, adult Z68.43 and Chronic obstructive pulmonary disease, unspecified COPD type J44.[address] [address] Aug, Chronic obstructive pulmonary disease, unspecified J44.9 ; Primary insomnia F51.01 ; Low back pain M54.5 and BMI 50.0-59.9, adult Z68.[address] [address] 16 Aug, 2017 Shortness of breath R06.02 ; Loose stools R19.5 and BMI 50.0-59.9, adult Z68.[address] [address] Aug, Acute renal injury N17.9 and Thrombocytopenia D69.[address] [address] May, [facility] [address], [place] [address] Apr, [facility] [id number] [place] [address] Mar, Acute exacerbation of chronic obstructive pulmonary disease (COPD) J44.1 ; BMI 50.0-59.9, adult Z68.43 and BMI 60.0-69.9, adult Z68.44 [facility] [id number] [place] [address] Mar, [facility] [id number] [place] [address] Feb, Right anterior shoulder pain M25.511 ; Encounter for immunization Z23 ; Other emphysema J43.8 ; Other obesity due to excess calories E66.09 ; Body mass index (BMI) of 50-59.9 in adult Z68.43 and Low back pain M54.5 [facility] [id number] [place] [address] Feb, [facility] [id number] [place] [address] Feb, Low back pain M54.5 [facility] [id number] [place] [address] Jan, [facility] [id number] [place] [address] Jan, Low back pain M54.5 [facility] [id number] [place] [address] Dec, Shortness of breath R06.02 [facility] [id number] [place] [address] Dec, Low back pain M54.5 [facility] [id number] [place] [address] Nov, Low back pain M54.5 [facility] [address], [place] [address] Oct, [facility] [id number] [place] [address] Oct, Low back pain M54.5 [facility] [address] [place] [address] September, Low back pain M54.5 [facility] [address] [place] [address] September, Sore throat J02.9 and Strep throat J02.0 [facility] [id number] [place] [address] September, [facility] [id number] [place] [address] Aug, Low back pain M54.5 [facility] [id number] [place] [address] Aug, Medicare welcome exam Z00.00 ; Prostate cancer screening Z12.5 ; Encounter for screening for lung cancer Z12.2 and Lipid screening Z13.220 [facility] [address] [place] [address] Jul, [facility] [address] [place] [address] Jul, Low back pain M54.5 [facility] [address] [place] [address] Jul, [facility] [address] [place] [address] Jun, [facility] [id number] [place] [address] Jun, Anxiety F41.9 and Low back pain M54.5 [facility] [id number] [place] [address] Jun, Shortness of breath R06.02 [facility] [id number] [place] [address] May, Anxiety F41.9 and Low back pain M54.5 [facility] [id number] [place] [address] May, [facility] [id number] [place] [address] Apr, [facility] [id number] [place] [address] Apr, Chronic obstructive pulmonary disease, unspecified J44.9 [facility] [id number] [place] [address] Apr, [facility] [id number] [place] [address] Apr, Chronic obstructive pulmonary disease, unspecified J44.9 [facility] [id number] [place] [address] Apr, [facility] [id number] [place] [address] Apr, Anxiety F41.9 and Low back pain M54.5 [facility] [id number] [place] [address] Mar, Encounter for immunization Z23 ; Obstructive sleep apnea syndrome G47.33 ; Low back pain M54.5 and Anxiety F41.9 [facility] [address] [place] [address] Mar, Chronic obstructive pulmonary disease, unspecified J44.9 [facility] [id number] [place] [address] Mar, Chronic obstructive pulmonary disease, unspecified J44.9 [facility] [id number] [place] [address] Mar, Chronic obstructive pulmonary disease, unspecified J44.9 [facility] [address] [facility] [id number] [address] Feb, [facility] [address] [facility] [id number] [place] [address] Feb, [facility] [address] [place] [address] Feb, Chronic obstructive pulmonary disease, unspecified J44.9 [facility] [id number] [place] [address] Feb, [facility] [id number] [place] [address] Feb, Low back pain M54.5 ; Anxiety F41.9 and Bronchitis J40 [facility] [id number] [place] [address] Jan, [facility] [id number] [place] [address] 15 Jan, 2016 Anxiety F41.9 [facility] [id number] [place] [address] Jan, Chronic obstructive pulmonary disease, unspecified J44.9 [facility] [address], [place] [address] Jan, Low back pain M54.5 [facility] [address] [place] [address] Dec, Vertigo R42 [facility] [address] [facility] [id number] [place] [address] Dec, [facility] [id number] [place] [address] Nov, [facility] [id number] [place] [address] Nov, Low back pain M54.5 and Anxiety F41.9 [facility] [id number] [place] [address] Nov, [facility] [id number] [place] [address] Nov, [facility] [id number] [place] [address] Oct, Low back pain M54.5 and Anxiety F41.9 [facility] [id number] [place] [address] September, [facility] [id number] [place] [address] Aug, Shortness of breath R06.02 [facility] [id number] [place] [address] Aug, Shortness of breath R06.02 [facility] [id number] [place] [address] Aug, [facility] [id number] [place] [address] Jul, Insomnia G47.00 and Shortness of breath R06.02 [facility] [id number] [place] [address] Jul, [facility] [id number] [place] [address] Jul, [facility] [id number] [place] [address] Jul, Bronchitis J40 [facility] [id number] [place] [address] 16 Jul, 2015 [facility] [id number] [place] [address] 18 Jun, 2015 [facility] [address] [place] [address] Jun, [facility] [id number], [place] [address] May, [facility] [address], [place] [address] May, [facility] [address], [place] [address] Apr, [facility] [address], [place] [address] Apr, [facility] [address], [place] [address] Mar, [facility] [address] [place] [address] Mar, [facility] [id number], [place] [address] Mar, [facility] [address] [place] [address] Feb, [facility] [address], [place] [address] Feb, [facility] [address], [place] [address] Feb, Chronic obstructive pulmonary disease, unspecified J44.9 [facility] [address], [place] [address] Jan, [facility] [address], [place] [address] Jan, [facility] [id number], [place] [address] Dec, [facility] [address], [place] [address] Dec, [facility] [id number], [place] [address] Dec, High risk medication use V58.69 ; Back pain 724.5 ; Insomnia 780.52 ; Screening, lipid V77.91 and Screening for prostate cancer V76.44 [facility] [place] [facility] [address] [id number] [place] [address] Nov, [facility] [place] [facility] [address] [id number] [place] [address] Nov, [facility] [place] [facility] [address] [facility] [id number] [place] [address] Nov, [facility] [place] [facility] [address] [id number] [place] [address] Oct, [facility] [place] [facility] [address] [id number] [place] [address] Oct, [facility] [place] [facility] [address] [facility] [id number] [place] [address] September, [facility] [place] [facility] [address] [facility] [id number] [place] [address] Aug, [facility] [place] [facility] [address] [facility] [id number] [place] [address] Aug, [facility] [place] [facility] [address] [facility] [id number] [place] [address] Jul, [facility] [place] [facility] [address] [facility] [id number] [place] [address] Jul, [facility] [place] [facility] [address] [facility] [id number], [place] [address] Jul, [facility] [place] [facility] [address] [facility] [id number] [place] [address] Jul, [facility] [place] [facility] [address] [facility] [id number] [place] [address] Jul, [facility] [place] [facility] [address] [facility] [id number] [place] [address] Jul, [facility] [place] [facility] [address] [facility] [id number] [place] [address] Jun, [facility] [place] [facility] [address] [id number] [place] [address] 06 Jun, 2014 [facility] [place] [facility] [address] [id number] [place] [address] Jun, [facility] [place] [facility] [address] [id number] [place] [address] Jun, [facility] [place] [facility] [address] [id number] [place] [address] May, [facility] [place] [facility] [address] [id number] [place] [address] May, [facility] [place] [facility] [address] [id number] [place] [address] May, [facility] [place] [facility] [address] [id number] [place] [address] May, [facility] [place] [facility] [address] [id number] [place] [address] May, [facility] [place] [facility] [address] [id number] [place] [address] May, [facility] [place] [facility] [address] [id number] [place] [address] Apr, [facility] [place] [facility] [address] [id number] [place] [address] Apr, [facility] [place] [facility] [address] [id number] [place] [address] Mar, [facility] [place] [facility] [address] [id number] [place] [address] Mar, [facility] [place] [facility] [address] [id number] [place] [address] Mar, [facility] [place] [facility] [address] [id number] [place] [address] Mar, [facility] [place] [facility] [address] [id number] [place] [address] 16 Feb, 2014 [facility] [place] [facility] [address] [id number] [place] [address] 16 Feb, 2014 [facility] [place] [facility] [address] [id number] [place] [address] 13 Feb, 2014 [facility] [place] [facility] [address] [id number] [place] [address] Feb, [facility] [place] [facility] [address] [id number] [place] [address] 23 Jan, 2013 [facility] [place] [facility] [address] [id number] [place] [address] 23 Jan, 2013 [facility] [place] [facility] [address] [id number] [place] [address] 17 Jan, 2013 [facility] [place] [facility] [address] [id number] [place] [address] Jan, 2013 [facility] [place] [facility] [address] [id number] [place] [address] Jan, 2013 [facility] [place] [facility] [address] [id number] [place] [address] Jan, 2013 [facility] [place] [facility] [address] [id number] [place] [address] Jan, 2013 [facility] [place] [facility] [address] [id number] [place] [address] Jan, 2013 [facility] [place] [facility] [address] [id number], [place] [address] Jan, 2013 [facility] [place] [facility] [address] [id number] [place] [address] Jan, 2013 [facility] [place] [facility] [address] [id number] [place] [address] Dec, [facility] [place] [facility] [address] [id number] [place] [address] Dec, [facility] [place] [facility] [address] [id number] [place] [address] Nov, 2013 [facility] [place] [facility] [address] [id number] [place] [address] Nov, 2013 [facility] [place] [facility] [address] [id number] [place] [address] Nov, 2013 [facility] [place] [facility] [address] [id number] [place] [address] Nov, 2013 [facility] [place] [facility] [address] [id number] [place] [address] Nov, 2013 [facility] [place] [facility] [address] [id number] [place] [address] Nov, 2013 [facility] [place] [facility] [address] [id number] [place] [address] Nov, 2013 [facility] [place] [facility] [address] [id number] [place] [address] Nov, 2013 [facility] [place] [facility] [address] [id number] [place] [address] Nov, 2013 [facility] [place] [facility] [address] [id number] [place] [address] Nov, 2013 [facility] [place] [facility] [address] [id number] [place] [address] Nov, 2013 [facility] [place] [facility] [address] [id number] [place] [address] Nov, 2013 [facility] [place] [facility] [address] [id number] [place] [address] Oct, [facility] [place] [facility] [address] [id number] [place] [address] Oct, [facility] [place] [facility] [address] [id number] [place] [address] Oct, [facility] [place] [facility] [address] [id number] [place] [address] Oct, [facility] [place] [facility] [address] [id number] [place] [address] Oct, [facility] [place] [facility] [address] [id number] [place] [address] Oct, [facility] [place] [facility] [address] [id number] [place] [address] Oct, [facility] [place] [facility] [address] [id number] [place] [address] Oct, [facility] [place] [facility] [address] [id number] [place] [address] September, [facility] [place] [facility] [address] [id number] [place] [address] September, [facility] [place] [facility] [address] [id number] [place] [address] September, [facility] [place] [facility] [address] [id number] [place] [address] September, [facility] [place] [facility] [address] [id number] [place] [address] September, [facility] [place] [facility] [address] [id number] [place] [address] September, [facility] [place] [facility] [address] [id number] [place] [address] September, [facility] [place] [facility] [address] [id number] [place] [address] September, [facility] [place] [facility] [address] [id number] [place] [address] September, [facility] [place] [facility] [address] [id number] [place] [address] September, [facility] [place] [facility] [address] [id number] [place] [address] Aug, [facility] [place] [facility] [address] [id number] [place] [address] Aug, [facility] [place] [facility] [address] [id number] [place] [address] 30 Aug, 2013 [facility] [place] [facility] [address] [id number] [place] [address] 30 Aug, 2013 [facility] [place] [facility] [address] [id number] [place] [address] Aug, [facility] [place] [facility] [address] [id number] [place] [address] Aug, [facility] [place] [facility] [address] [id number] [place] [address] Aug, [facility] [place] [facility] [address] [id number] [place] [address] Aug, [facility] [place] [facility] [address] [id number] [place] [address] Aug, [facility] [place] [facility] [address] [id number] [place] [address] Aug, [facility] [place] [facility] [address] [id number] [place] [address] Aug, [facility] [place] [facility] [address] [id number] [place] [address] Aug, [facility] [place] [facility] [address] [id number] [place] [address] Aug, [facility] [place] [facility] [address] [id number] [place] [address] Aug, [facility] [place] [facility] [address] [id number] [place] [address] 24 Jul, 2013 [facility] [place] [facility] [address] [id number] [place] [address] Jul, [facility] [place] [facility] [address] [id number] [place] [address] Jul, [facility] [place] [facility] [address] [id number] [place] [address] Jul, [facility] [place] [facility] [address] [id number] [place] [address] Jun, [facility] [place] [facility] [address] [id number] [place] [address] Jun, [facility] [place] [facility] [address] [id number] [place] [address] Jun, [facility] [place] [facility] [address] [id number] [place] [address] Jun, [facility] [place] [facility] [address] [id number] [place] [address] Jun, [facility] [place] [facility] [address] [id number] [place] [address] Jun, [facility] [place] [facility] [address] [id number] [place] [address] Jun, [facility] [place] [facility] [address] [id number] [place] [address] May, [facility] [place] [facility] [address] [id number] [place] [address] May, [facility] [place] [facility] [address] [id number] [place] [address] May, [facility] [place] [facility] [address] [id number] [place] [address] May, [facility] [place] [facility] [address] [id number] [place] [address] May, [facility] [place] [facility] [address] [id number] [place] [address] May, [facility] [place] [facility] [address] [id number] [place] [address] Apr, [facility] [place] [facility] [address] [id number], [place] [address] Apr, [facility] [place] [facility] [address] [id number] [place] [address] Mar, [facility] [place] [facility] [address] [id number] [place] [address] Mar, [facility] [place] [facility] [address] [id number] [place] [address] Mar, [facility] [place] [facility] [address] [id number] [place] [address] Mar, [facility] [place] [facility] [address] [id number] [place] [address] Mar, [facility] [place] [facility] [address] [id number] [place] [address] Mar, [facility] [place] [facility] [address] [id number] [place] [address] Feb, [facility] [place] [facility] [address] [id number] [place] [address] Feb, [facility] [place] [facility] [address] [id number] [place] [address] Feb, [facility] [place] [facility] [address] [id number] [place] [address] Feb, [facility] [place] [facility] [address] [id number], [place] [address] Feb, [facility] [place] [facility] [address] [id number], [place] [address] Jan, [facility] [place] [facility] [address] [id number] [place] [address] Dec, [facility] [place] [facility] [address] [id number], [place] [address] Dec, [facility] [place] [facility] [address] [id number] [place] [address] Oct, [facility] [place] [facility] [address] [id number] [place] [address] Oct, [facility] [address] [id number] [place] [address] Oct, [facility] [address] [id number] [place] [address] September, [facility] [address] [id number] [place] [address] September, [facility] [address] [id number] [place] [address] Aug, [facility] [address] [id number] [place] [address] Aug, [facility] [address] [id number] [place] [address] Jul, [facility] [address] [id number] [place] [address] May, [facility] [address] [id number] [place] [address] May, [facility] [address] [id number] [place] [address] Apr, [facility] [address] [id number] [place] [address] Apr, [facility] [address] [id number] [place] [address] Apr, [facility] [address] [id number] [place] [address] Apr, [facility] [address] [id number] [place] [address] Apr, [facility] [address] [id number] [place] [address] Apr, [facility] [address] [id number] [place] [address] Apr, [facility] [place] [facility] [address] [id number] [place] [address] Apr, [facility] [place] [facility] [address] [id number] [place] [address] Mar, [facility] [place] [facility] [address] [id number] [place] [address] Mar, [facility] [place] [facility] [address] [id number] [place] [address] Feb, [facility] [place] [facility] [address] [id number] [place] [address] Feb, [facility] [place] [facility] [address] [id number] [place] [address] Feb, [facility] [place] [facility] [address] [id number] [place] [address] Jan, [facility] [place] [facility] [address] [id number] [place] [address] Jan, [facility] [place] [facility] [address] [id number] [place] [address] Dec, [facility] [place] [facility] [address] [id number] [place] [address] Dec, [facility] [place] [facility] [address] [id number] [place] [address] Dec, [facility] [place] [facility] [address] [id number] [place] [address] Dec, [facility] [place] [facility] [address] [id number] [place] [address] Nov, [facility] [place] [facility] [address] [id number] [place] [address] Nov, [facility] [place] [facility] [address] [id number] [place] [address] Nov, [facility] [place] [facility] [address] [id number] [place] [address] September, [facility] [address] [id number] [place] [address] September, [facility] [place] [facility] [address] [id number] [place] [address] September, [facility] [place] [facility] [address] [id number] [place] [address] Aug, [facility] [place] [facility] [address] [id number] [place] [address] Jun, [facility] [place] [facility] [address] [id number] [place] [address] May, [facility] [place] [facility] [address] [id number] [place] [address] Apr, [facility] [place] [facility] [address] [id number] [place] [address] Apr, [facility] [place] [facility] [address] [id number] [place] [address] Apr, [facility] [place] [facility] [address] [id number] [place] [address] Mar, [facility] [place] [facility] [address] [id number] [place] [address] Mar, [facility] [place] [facility] [address] [id number] [place] [address] Feb, [facility] [place] [facility] [address] [id number] [place] [address] Feb, [facility] [place] [facility] [address] [id number] [place] [address] Feb, [facility] [place] [facility] [address] [id number] [place] [address] Feb, [facility] [place] [facility] [address] [id number] [place] [address] Nov, [facility] [place] [facility] [address] [facility] [id number] [place] [address] 13 Oct, 2010 IMMUNIZATIONS No Known Immunizations SOCIAL HISTORY Never Assessed REASON FOR VISIT EMR-[facility] PLAN OF CARE VITAL SIGNS MEDICATIONS Unknown [...] cataract removal 05/2015 Surgical History Right Shoulder 2016 Surgical History Right knee scope with meniscus repair 2017 Surgical History gastric sleeve 12/2017 Surgical History gallbladder Hospitalization History Hospitalization for surgery only Hospitalization History sepsis at [facility] 08/2017 Hospitalization History pancreatitis 03/2018
--- OUTSIDE RECORDS SUMMARY | 2018-10-24 13:35 | XMS REPORT ---
Author Author Migration, Doctor Organization [facility] Address Unknown Phone Unavailable Care Team Providers Care Director Treasurer Name Role Phone Migration, Doctor Unavailable Unavailable PROBLEMS Type Condition ICD9-CM Code [id number] Code Onset Dates Condition Status SNOMED Code Problem Shortness of breath R06.02 Active 358387754 Problem Primary insomnia F51.01 Active 5908115 Problem Anxiety F41.9 Active 24026424 Problem Insomnia G47.00 Active 968160987 Problem Chronic obstructive pulmonary disease, unspecified J44.9 Active 77786071 Problem Low back pain M54.5 Active 091246035 Problem Other obesity due to excess calories E66.09 Active 51454408939985 Problem Obstructive sleep apnea syndrome G47.33 Active 39951898 Problem Acute exacerbation of chronic obstructive pulmonary disease (COPD) J44.1 Active 012204641 Problem Chronic obstructive pulmonary disease with (acute) exacerbation J44.1 Active 334561827 Problem Thrombocytopenia D69.6 Active 351039528 Problem Chronic bronchitis, unspecified chronic bronchitis type J42 Active 81438772 Problem Body mass index (BMI) of 50-59.9 in adult Z68.43 Active 282760738 Problem Mild intermittent asthma without complication J45.20 Active 103781141 Problem COPD exacerbation J44.1 Active 739803200 Problem Other emphysema J43.8 Active 55787005 Problem Gastroesophageal reflux disease without esophagitis K21.9 Active 588875589 Problem Dysthymia F34.1 Active 36799311 Problem Essential hypertension I10 Active 91043101 Problem Other chronic pain G89.29 Active 06315519 Problem Status post cholecystectomy Z90.49 Active 240933111 Problem Hypoalbuminemia E88.09 Active 096340400 ALLERGIES No Information ENCOUNTERS Encounter Location Date Diagnosis [facility] [address] [facility] [id number] [place] [address] Aug, Encounter for Medicare annual wellness exam Z00.00 ; Chronic obstructive pulmonary disease, unspecified J44.9 ; Other obesity due to excess calories E66.09 ; Thrombocytopenia D69.6 ; Gastroesophageal reflux disease without esophagitis K21.9 and Essential hypertension I10 [facility] [id number] [place] [address] Aug, Anxiety F41.9 [facility] [address] [address] 29 Jul, 2018 Primary insomnia F51.01 [facility] [address] [address] 15 Jul, 2018 Anxiety F41.9 [facility] [address] [address] 28 Jun, 2018 Primary insomnia F51.01 [place] [address] [address] 18 Jun, 2018 Chronic bronchitis, unspecified chronic bronchitis type J42 [place] [address] [address] 14 Jun, 2018 Anxiety F41.9 [facility] [address] [address] 12 Jun, 2018 COPD exacerbation J44.1 and BMI 40.0-44.9, adult Z68.41 [facility] [id number] [place] [address] 05 Jun, 2018 Primary insomnia F51.01 [facility] [id number] [place] [address] 02 Jun, 2018 Wheezing R06.2 ; Cough R05 and BMI 40.0-44.9, adult Z68.41 [place] [address] [address] 01 Jun, 2018 [facility] [address] [address] May, [place] [address] [address] May, Chronic obstructive pulmonary disease, unspecified J44.9 ; Anxiety F41.9 and BMI 40.0-44.9, adult Z68.41 [place] [address] [address] May, Primary insomnia F51.01 [place] [address] [address] Apr, [place] [address] [address] Apr, Pneumonia due to infectious organism, unspecified laterality, unspecified part of lung J18.9 ; Hypoalbuminemia E88.09 ; Status post bariatric surgery Z98.84 and BMI 40.0-44.9, adult Z68.41 [place] [address] [address] 11 Apr, 2018 Primary insomnia F51.01 [place] [address] [address] Mar, Shortness of breath R06.02 ; Anasarca R60.1 ; Weakness R53.1 ; Status post cholecystectomy Z90.49 and History of pancreatitis Z87.19 [place] [address] [address] 13 Mar, 2018 Primary insomnia F51.01 [facility] [id number] [place] [address] Feb, Pain in right knee M25.561 [place] [address] [address] Feb, Status post bariatric surgery Z98.84 ; Chronic obstructive pulmonary disease, unspecified J44.9 ; Pain in right knee M25.561 ; Pain in left knee M25.562 ; Other chronic pain G89.29 ; Encounter for immunization Z23 and BMI 45.0-49.9, adult Z68.42 [place] [address] [address] Feb, Primary insomnia F51.01 [facility] [id number] [place] [address] Jan, Anxiety F41.9 and Primary insomnia F51.01 [facility] [id number] [place] [address] Dec, Anxiety F41.9 ; Primary insomnia F51.01 ; Low back pain M54.5 ; BMI 50.0-59.9, adult Z68.43 ; Shortness of breath R06.02 and Essential hypertension I10 [place] [address] [address] Dec, Low back pain M54.5 and Primary insomnia F51.01 [place] [id number] [place] [address] Dec, [place] [address] [address] Nov, Acute exacerbation of chronic obstructive pulmonary disease (COPD) J44.1 ; Primary insomnia F51.01 and Low back pain M54.5 [facility] [id number] [place] [address] September, BMI 50.0-59.9, adult Z68.43 and Chronic obstructive pulmonary disease, unspecified COPD type J44.9 [facility] [id number] [place] [address] Aug, Chronic obstructive pulmonary disease, unspecified J44.9 ; Primary insomnia F51.01 ; Low back pain M54.5 and BMI 50.0-59.9, adult Z68.43 [facility] [id number] [place] [address] Aug, Shortness of breath R06.02 ; Loose stools R19.5 and BMI 50.0-59.9, adult Z68.43 [place] [id number] [place] [address] Aug, Acute renal injury N17.9 and Thrombocytopenia D69.6 [facility] [address] [address] May, [facility] [address] [address] Apr, [facility] [address] [address] Mar, Acute exacerbation of chronic obstructive pulmonary disease (COPD) J44.1 ; BMI 50.0-59.9, adult Z68.43 and BMI 60.0-69.9, adult Z68.44 [place] [address] [address] Mar, [place] [address] [address] Feb, Right anterior shoulder pain M25.511 ; Encounter for immunization Z23 ; Other emphysema J43.8 ; Other obesity due to excess calories E66.09 ; Body mass index (BMI) of 50-59.9 in adult Z68.43 and Low back pain M54.5 [place] [address] [address] Feb, [place] [address] [address] Feb, Low back pain M54.5 [place] [address] [address] Jan, [facility] [address] [address] Jan, Low back pain M54.5 [place] [address] [address] Dec, Shortness of breath R06.02 [place] [address] [address] Dec, Low back pain M54.5 [facility] [id number] [place] [address] Nov, Low back pain M54.5 [facility] [id number] [place] [address] Oct, [facility] [id number] [place] [address] Oct, Low back pain M54.5 [facility] [id number] [place] [address] September, Low back pain M54.5 [facility] [id number] [place] [address] September, Sore throat J02.9 and Strep throat J02.0 [facility] [id number] [place] [address] September, [facility] [id number] [place] [address] Aug, Low back pain M54.5 [facility] [id number] [place] [address] Aug, Medicare welcome exam Z00.00 ; Prostate cancer screening Z12.5 ; Encounter for screening for lung cancer Z12.2 and Lipid screening Z13.220 [facility] [id number] [place] [address] Jul, [facility] [id number] [place] [address] Jul, Low back pain M54.5 [facility] [id number] [place] [address] Jul, [facility] [id number] [place] [address] Jun, [facility] [id number] [place] [address] Jun, Anxiety F41.9 and Low back pain M54.5 [facility] [id number] [place] [address] Jun, Shortness of breath R06.02 [facility] [address] [address] May, Anxiety F41.9 and Low back pain M54.5 [facility] [address] [address] May, [facility] [address] [address] Apr, [facility] [address] [address] Apr, Chronic obstructive pulmonary disease, unspecified J44.9 [facility] [address] [address] Apr, [facility] [id number] [place] [address] Apr, Chronic obstructive pulmonary disease, unspecified J44.9 [facility] [address] [address] Apr, [facility] [id number] [place] [address] Apr, Anxiety F41.9 and Low back pain M54.5 [facility] [id number] [place] [address] Mar, Encounter for immunization Z23 ; Obstructive sleep apnea syndrome G47.33 ; Low back pain M54.5 and Anxiety F41.9 [facility] [id number] [place] [address] Mar, Chronic obstructive pulmonary disease, unspecified J44.9 [facility] [id number] [place] [address] Mar, Chronic obstructive pulmonary disease, unspecified J44.9 [facility] [address] [address] Mar, Chronic obstructive pulmonary disease, unspecified J44.9 [facility] [address] [address] Feb, [facility] [id number] [place] [address] Feb, [facility] [id number] [place] [address] Feb, Chronic obstructive pulmonary disease, unspecified J44.9 [facility] [id number] [place] [address] Feb, [facility] [id number] [place] [address] Feb, Low back pain M54.5 ; Anxiety F41.9 and Bronchitis J40 [facility] [id number] [place] [address] Jan, [facility] [id number] [place] [address] Jan, Anxiety F41.9 [facility] [id number] [place] [address] Jan, Chronic obstructive pulmonary disease, unspecified J44.9 [facility] [id number] [place] [address] Jan, Low back pain M54.5 [facility] [id number] [place] [address] Dec, Vertigo R42 [facility] [id number] [place] [address] Dec, [facility] [address] [address] Nov, [facility] [id number] [place] [address] 07 Nov, 2015 Low back pain M54.5 and Anxiety F41.9 [facility] [id number] [place] [address] Nov, [facility] [id number] [place] [address] Nov, [facility] [id number] [place] [address] Oct, Low back pain M54.5 and Anxiety F41.9 [facility] [id number] [place] [address] September, [facility] [id number] [place] [address] Aug, Shortness of breath R06.02 [facility] [id number] [place] [address] Aug, Shortness of breath R06.02 [facility] [id number] [place] [address] Aug, [facility] [id number] [place] [address] Jul, Insomnia G47.00 and Shortness of breath R06.02 [facility] [id number] [place] [address] Jul, [facility] [id number] [place] [address] Jul, [facility] [id number] [place] [address] Jul, Bronchitis J40 [facility] [id number] [place] [address] Jul, [facility] [id number] [place] [address] Jun, [facility] [place] [facility] [address] [id number] [place] [address] Jun, [facility] [place] [facility] [address] [id number] [place] [address] May, [facility] [place] [facility] [address] [id number] [place] [address] May, [facility] [place] [facility] [address] [id number] [place] [address] Apr, [facility] [place] [facility] [address] [id number] [place] [address] Apr, [facility] [place] [facility] [address] [id number] [place] [address] Mar, [facility] [place] [facility] [address] [facility] [id number] [place] [address] Mar, [facility] [place] [facility] [address] [facility] [id number] [place] [address] Mar, [facility] [place] [facility] [address] [facility] [id number] [place] [address] Feb, [facility] [place] [facility] [address] [facility] [id number] [place] [address] Feb, [facility] [place] [facility] [address] [facility] [id number] [place] [address] Feb, Chronic obstructive pulmonary disease, unspecified J44.9 [facility] [place] [facility] [address] [id number] [place] [address] Jan, [facility] [place] [facility] [address] [id number] [place] [address] Jan, [facility] [place] [facility] [address] [facility] [id number] [place] [address] Dec, [facility] [place] [facility] [address] [facility] [id number] [place] [address] Dec, [facility] [place] [facility] [address] [address] Dec, High risk medication use V58.69 ; Back pain 724.5 ; Insomnia 780.52 ; Screening, lipid V77.91 and Screening for prostate cancer V76.44 [facility] [address] [address] Nov, [facility] [address] [address] Nov, [facility] [address] [address] Nov, [facility] [address] [address] Oct, [facility] [address] [address] Oct, [facility] [address] [address] September, [facility] [address] [address] Aug, [facility] [address] [address] Aug, [facility] [id number] [address] Jul, [facility] [id number] [address] Jul, [facility] [id number] [address] Jul, [facility] [address] [address] Jul, [facility] [id number] [address] Jul, [facility] [address] [address] Jul, [facility] [place] [facility] [address] [id number] [place] [address] Jun, [facility] [place] [facility] [address] [id number] [place] [address] Jun, [facility] [place] [facility] [address] [id number] [place] [address] Jun, [facility] [place] [facility] [address] [id number] [place] [address] Jun, [facility] [place] [facility] [address] [id number] [place] [address] May, [facility] [place] [facility] [address] [id number] [place] [address] May, [facility] [place] [facility] [address] [id number] [place] [address] May, [facility] [place] [facility] [address] [id number] [place] [address] May, [facility] [place] [facility] [address] [id number] [place] [address] May, [facility] [place] [facility] [address] [id number] [place] [address] May, [facility] [place] [facility] [address] [id number] [place] [address] Apr, [facility] [place] [facility] [address] [id number] [place] [address] Apr, [facility] [place] [facility] [address] [id number] [place] [address] Mar, [facility] [place] [facility] [address] [id number] [place] [address] Mar, [facility] [place] [facility] [address] [facility] [id number] [place] [address] Mar, [facility] [place] [facility] [address] [id number] [place] [address] 06 Mar, 2014 [facility] [place] [facility] [address] [id number] [place] [address] 16 Feb, 2014 [facility] [place] [facility] [address] [id number] [place] [address] 16 Feb, 2014 [facility] [place] [facility] [address] [id number] [place] [address] Feb, [facility] [place] [facility] [address] [id number] [place] [address] Feb, [facility] [place] [facility] [address] [id number] [place] [address] 23 Jan, 2013 [facility] [place] [facility] [address] [id number] [place] [address] 23 Jan, 2013 [facility] [place] [facility] [address] [id number] [place] [address] 17 Jan, 2013 [facility] [place] [facility] [address] [id number] [place] [address] 17 Jan, 2013 [facility] [place] [facility] [address] [id number] [place] [address] Jan, 2013 [facility] [place] [facility] [address] [id number] [place] [address] Jan, 2013 [facility] [place] [facility] [address] [id number] [place] [address] Jan, 2013 [facility] [place] [facility] [address] [id number] [place] [address] Jan, 2013 [facility] [place] [facility] [address] [id number] [place] [address] Jan, 2013 [facility] [place] [facility] [address] [id number] [place] [address] Jan, 2013 [facility] [place] [facility] [address] [id number] [place] [address] Dec, [facility] [place] [facility] [address] [id number] [place] [address] Dec, [facility] [place] [facility] [address] [id number] [place] [address] Nov, [facility] [place] [facility] [address] [id number] [place] [address] Nov, [facility] [place] [facility] [address] [id number] [place] [address] Nov, [facility] [place] [facility] [address] [id number] [place] [address] Nov, [facility] [place] [facility] [address] [id number] [place] [address] Nov, [facility] [place] [facility] [address] [id number] [place] [address] Nov, [facility] [place] [facility] [address] [id number] [place] [address] Nov, [facility] [place] [facility] [address] [id number] [place] [address] Nov, [facility] [place] [facility] [address] [id number] [place] [address] Nov, [facility] [place] [facility] [address] [id number] [place] [address] Nov, [facility] [place] [facility] [address] [id number] [place] [address] Nov, [facility] [place] [facility] [address] [id number] [place] [address] Nov, [facility] [place] [facility] [address] [id number] [place] [address] Oct, [facility] [place] [facility] [address] [id number] [place] [address] Oct, [facility] [place] [facility] [address] [id number] [place] [address] Oct, [facility] [place] [facility] [address] [id number] [place] [address] Oct, [facility] [place] [facility] [address] [id number] [place] [address] Oct, [facility] [place] [facility] [address] [id number] [place] [address] Oct, [facility] [place] [facility] [address] [id number] [place] [address] Oct, [facility] [place] [facility] [address] [id number] [place] [address] Oct, [facility] [place] [facility] [address] [id number] [place] [address] September, [facility] [place] [facility] [address] [id number] [place] [address] September, [facility] [place] [facility] [address] [id number] [place] [address] September, [facility] [place] [facility] [address] [id number] [place] [address] September, [facility] [place] [facility] [address] [id number] [place] [address] September, [facility] [place] [facility] [address] [id number] [place] [address] September, [facility] [place] [facility] [address] [id number] [place] [address] September, [facility] [place] [facility] [address] [id number] [place] [address] September, [facility] [place] [facility] [address] [id number] [place] [address] September, [facility] [place] [facility] [address] [id number] [place] [address] September, [facility] [place] [facility] [address] [id number] [place] [address] 30 Aug, 2013 [facility] [place] [facility] [address] [id number] [place] [address] 30 Aug, 2013 [facility] [place] [facility] [address] [id number] [place] [address] Aug, [facility] [place] [facility] [address] [id number] [place] [address] Aug, [facility] [place] [facility] [address] [id number] [place] [address] Aug, [facility] [place] [facility] [address] [id number] [place] [address] Aug, [facility] [place] [facility] [address] [id number] [place] [address] Aug, [facility] [place] [facility] [address] [id number] [place] [address] Aug, [facility] [place] [facility] [address] [id number] [place] [address] Aug, [facility] [place] [facility] [address] [id number] [place] [address] Aug, [facility] [place] [facility] [address] [id number] [place] [address] Aug, [facility] [place] [facility] [address] [id number] [place] [address] Aug, [facility] [place] [facility] [address] [id number] [place] [address] Aug, [facility] [place] [facility] [address] [id number] [place] [address] Aug, [facility] [place] [facility] [address] [id number] [place] [address] Jul, [facility] [place] [facility] [address] [id number] [place] [address] Jul, [facility] [place] [facility] [address] [id number] [place] [address] Jul, [facility] [place] [facility] [address] [id number] [place] [address] Jul, [facility] [place] [facility] [address] [id number] [place] [address] Jun, [facility] [place] [facility] [address] [id number] [place] [address] Jun, [facility] [place] [facility] [address] [address] [id number] [place] [address] Jun, [facility] [place] [facility] [address] [id number] [place] [address] Jun, [facility] [place] [facility] [address] [id number] [place] [address] Jun, [facility] [place] [facility] [address] [id number] [place] [address] Jun, [facility] [place] [facility] [address] [id number] [place] [address] Jun, [facility] [place] [facility] [address] [id number] [place] [address] May, [facility] [place] [facility] [address] [id number] [place] [address] May, [facility] [place] [facility] [address] [id number] [place] [address] May, [facility] [place] [facility] [address] [id number] [place] [address] May, [facility] [place] [facility] [address] [id number] [place] [address] May, [facility] [place] [facility] [address] [id number] [place] [address] May, [facility] [place] [facility] [address] [id number] [place] [address] Apr, [facility] [place] [facility] [address] [id number] [place] [address] Apr, [facility] [place] [facility] [address] [id number] [place] [address] Mar, [facility] [place] [facility] [address] [id number] [place] [address] Mar, [facility] [place] [facility] [address] [id number] [place] [address] Mar, [facility] [place] [facility] [address] [id number] [place] [address] Mar, [facility] [place] [facility] [address] [id number] [place] [address] Mar, [facility] [place] [facility] [address] [id number] [place] [address] Mar, [facility] [place] [facility] [address] [id number] [place] [address] Feb, [facility] [place] [facility] [address] [id number] [place] [address] Feb, [facility] [place] [facility] [address] [id number] [place] [address] Feb, [facility] [place] [facility] [address] [id number] [place] [address] Feb, [facility] [place] [facility] [address] [id number] [place] [address] 16 Feb, 2013 [facility] [place] [facility] [address] [id number] [place] [address] Jan, [facility] [place] [facility] [address] [id number] [place] [address] Dec, [facility] [place] [facility] [address] [id number] [place] [address] Dec, [facility] [address] [id number] [place] [address] Oct, [facility] [place] [facility] [address] [id number] [place] [address] Oct, [facility] [address] [id number] [place] [address] Oct, [facility] [place] [facility] [address] [id number] [place] [address] September, [facility] [address] [id number] [place] [address] September, [facility] [address] [id number] [place] [address] Aug, [facility] [place] [facility] [address] [id number] [place] [address] Aug, [facility] [address] [id number] [place] [address] Jul, [facility] [address] [id number] [place] [address] May, [facility] [address] [id number] [place] [address] May, [facility] [place] [facility] [address] [id number] [place] [address] Apr, [facility] [place] [facility] [address] [id number] [place] [address] Apr, [facility] [place] [facility] [address] [id number] [place] [address] Apr, [facility] [place] [facility] [address] [id number] [place] [address] Apr, [facility] [place] [facility] [address] [id number] [place] [address] Apr, [facility] [place] [facility] [address] [id number] [place] [address] Apr, [facility] [place] [facility] [address] [id number] [place] [address] Apr, [facility] [place] [facility] [address] [id number] [place] [address] Apr, [facility] [place] [facility] [address] [id number] [place] [address] Mar, [facility] [place] [facility] [address] [id number] [place] [address] Mar, [facility] [place] [facility] [address] [id number] [place] [address] Feb, [facility] [place] [facility] [address] [id number] [place] [address] Feb, [facility] [place] [facility] [address] [id number] [place] [address] Feb, [facility] [place] [facility] [address] [id number] [place] [address] Jan, [facility] [place] [facility] [address] [id number] [place] [address] Jan, [facility] [place] [facility] [address] [facility] [id number] [place] [address] Dec, [facility] [place] [facility] [address] [id number] [place] [address] Dec, [facility] [place] [facility] [address] [id number] [place] [address] Dec, [facility] [place] [facility] [address] [id number] [place] [address] Dec, [facility] [place] [facility] [address] [id number] [place] [address] Nov, [facility] [place] [facility] [address] [facility] [id number] [place] [address] Nov, [facility] [place] [facility] [address] [id number] [place] [address] Nov, [facility] [place] [facility] [address] [id number] [place] [address] September, [facility] [place] [facility] [address] [id number] [place] [address] September, [facility] [place] [facility] [address] [id number] [place] [address] September, [facility] [place] [facility] [address] [id number] [place] [address] Aug, [facility] [place] [facility] [address] [id number] [place] [address] Jun, [facility] [place] [facility] [address] [id number] [place] [address] May, [facility] [address] [id number] [place] [address] Apr, [facility] [place] [facility] [address] [id number] [place] [address] Apr, [facility] [place] [facility] [address] [id number] [place] [address] Apr, [facility] [place] [facility] [address] [id number] [place] [address] Mar, [facility] [place] [facility] [address] [id number] [place] [address] Mar, [facility] [place] [facility] [address] [id number] [place] [address] Feb, [facility] [place] [facility] [address] [id number] [place] [address] Feb, [facility] [place] [facility] [address] [id number] [place] [address] Feb, [facility] [place] [facility] [address] [id number] [place] [address] Feb, [facility] [address] [facility] [id number] [place] [address] Nov, [facility] [address] [facility] [id number] [place] [address] Oct, IMMUNIZATIONS No Known Immunizations SOCIAL HISTORY Never Assessed REASON FOR VISIT EMR-[facility] PLAN OF CARE VITAL SIGNS MEDICATIONS Unknown [...] for surgery only Hospitalization History sepsis at [facility] 08/2017 Hospitalization History pancreatitis 03/2018
--- OUTSIDE RECORDS SUMMARY | 2018-10-24 13:36 | XMS REPORT ---
Author Author Migration, Doctor Organization [facility] Address Unknown Phone Unavailable Care Team Providers Care Dry Goods Inspector Name Role Phone Migration, Doctor Unavailable Unavailable PROBLEMS Type Condition ICD9-CM Code [id number] Code Onset Dates Condition Status SNOMED Code Problem Shortness of breath R06.02 Active 346513078 Problem Primary insomnia F51.01 Active 5683615 Problem Anxiety F41.9 Active 24581014 Problem Insomnia G47.00 Active 895788494 Problem Chronic obstructive pulmonary disease, unspecified J44.9 Active 04610948 Problem Low back pain M54.5 Active 770972888 Problem Other obesity due to excess calories E66.09 Active 72943597999241 Problem Obstructive sleep apnea syndrome G47.33 Active 12501173 Problem Acute exacerbation of chronic obstructive pulmonary disease (COPD) J44.1 Active 503080621 Problem Chronic obstructive pulmonary disease with (acute) exacerbation J44.1 Active 141846091 Problem Thrombocytopenia D69.6 Active 602949349 Problem Chronic bronchitis, unspecified chronic bronchitis type J42 Active 31400986 Problem Body mass index (BMI) of 50-59.9 in adult Z68.43 Active 552015947 Problem Mild intermittent asthma without complication J45.20 Active 488976100 Problem COPD exacerbation J44.1 Active 572656365 Problem Other emphysema J43.8 Active 80019646 Problem Gastroesophageal reflux disease without esophagitis K21.9 Active 652492006 Problem Dysthymia F34.1 Active 92010725 Problem Essential hypertension I10 Active 98495142 Problem Other chronic pain G89.29 Active 94380933 Problem Status post cholecystectomy Z90.49 Active 463538323 Problem Hypoalbuminemia E88.09 Active 719610235 ALLERGIES No Information ENCOUNTERS Encounter Location Date Diagnosis [facility] [id number] [address] Aug, Encounter for Medicare annual wellness exam Z00.00 [facility] [id number] [address] Aug, Anxiety F41.9 [facility] [id number] [place] [address] Jul, Primary insomnia F51.01 [facility] [id number] [place] [address] Jul, Anxiety F41.9 [facility] [address] [address] Jun, Primary insomnia F51.01 [facility] [id number] [place] [address] 18 Jun, 2018 Chronic bronchitis, unspecified chronic bronchitis type J42 [id number] [place] [address] 14 Jun, 2018 Anxiety F41.9 [facility] [id number] [place] [address] 12 Jun, 2018 COPD exacerbation J44.1 and BMI 40.0-44.9, adult Z68.41 [facility] [id number] [place] [address] 05 Jun, 2018 Primary insomnia F51.01 [facility] [id number] [place] [address] 02 Jun, 2018 Wheezing R06.2 ; Cough R05 and BMI 40.0-44.9, adult Z68.41 [facility] [id number] [place] [address] Jun, [facility] [id number] [place] [address] May, [facility] [id number] [place] [address] May, Chronic obstructive pulmonary disease, unspecified J44.9 ; Anxiety F41.9 and BMI 40.0-44.9, adult Z68.41 [facility] [id number] [place] [address] May, Primary insomnia F51.01 [address] [address] Apr, [address] [facility] [id number] [place] [address] Apr, Pneumonia due to infectious organism, unspecified laterality, unspecified part of lung J18.9 ; Hypoalbuminemia E88.09 ; Status post bariatric surgery Z98.84 and BMI 40.0-44.9, adult Z68.41 [address] [address] 11 Apr, 2018 Primary insomnia F51.01 [address] [facility] [id number] [place] [address] 28 Mar, 2018 Shortness of breath R06.02 ; Anasarca R60.1 ; Weakness R53.1 ; Status post cholecystectomy Z90.49 and History of pancreatitis Z87.19 [place] [facility] [id number] [place] [address] 13 Mar, 2018 Primary insomnia F51.01 [place] [facility] [id number] [place] [address] Feb, Pain in right knee M25.561 [address] [address] 24 Feb, 2018 Status post bariatric surgery Z98.84 ; Chronic obstructive pulmonary disease, unspecified J44.9 ; Pain in right knee M25.561 ; Pain in left knee M25.562 ; Other chronic pain G89.29 ; Encounter for immunization Z23 and BMI 45.0-49.9, adult Z68.42 [address] [place] [id number] [place] [address] 16 Feb, 2018 Primary insomnia F51.01 [address] [id number] [place] [address] 14 Jan, 2018 Anxiety F41.9 and Primary insomnia F51.01 [address] [address] Dec, Anxiety F41.9 ; Primary insomnia F51.01 ; Low back pain M54.5 ; BMI 50.0-59.9, adult Z68.43 ; Shortness of breath R06.02 and Essential hypertension I10 [address] [address] Dec, Low back pain M54.5 and Primary insomnia F51.[address] [address] Dec, [address] [address] Nov, Acute exacerbation of chronic obstructive pulmonary disease (COPD) J44.1 ; Primary insomnia F51.01 and Low back pain M54.[address] [address] September, BMI 50.0-59.9, adult Z68.43 and Chronic obstructive pulmonary disease, unspecified COPD type J44.[address] [address] Aug, Chronic obstructive pulmonary disease, unspecified J44.9 ; Primary insomnia F51.01 ; Low back pain M54.5 and BMI 50.0-59.9, adult Z68.[address] [address] 16 Aug, 2017 Shortness of breath R06.02 ; Loose stools R19.5 and BMI 50.0-59.9, adult Z68.[address] [address] Aug, Acute renal injury N17.9 and Thrombocytopenia D69.[address] [address] May, [facility] [address] [address] Apr, [facility] [id number] [place] [address] Mar, Acute exacerbation of chronic obstructive pulmonary disease (COPD) J44.1 ; BMI 50.0-59.9, adult Z68.43 and BMI 60.0-69.9, adult Z68.44 [facility] [id number] [place] [address] Mar, [facility] [id number] [place] [address] Feb, Right anterior shoulder pain M25.511 ; Encounter for immunization Z23 ; Other emphysema J43.8 ; Other obesity due to excess calories E66.09 ; Body mass index (BMI) of 50-59.9 in adult Z68.43 and Low back pain M54.5 [facility] [id number] [place] [address] Feb, [facility] [id number] [place] [address] Feb, Low back pain M54.5 [facility] [id number] [place] [address] Jan, [facility] [id number] [place] [address] Jan, Low back pain M54.5 [facility] [id number] [place] [address] Dec, Shortness of breath R06.02 [facility] [id number] [place] [address] Dec, Low back pain M54.5 [facility] [id number] [place] [address] Nov, Low back pain M54.5 [facility] [address], [place] [address] Oct, [facility] [id number] [place] [address] Oct, Low back pain M54.5 [facility] [address] [place] [address] September, Low back pain M54.5 [facility] [address] [place] [address] September, Sore throat J02.9 and Strep throat J02.0 [facility] [id number] [place] [address] September, [facility] [id number] [place] [address] Aug, Low back pain M54.5 [facility] [id number] [place] [address] Aug, Medicare welcome exam Z00.00 ; Prostate cancer screening Z12.5 ; Encounter for screening for lung cancer Z12.2 and Lipid screening Z13.220 [facility] [address] [place] [address] Jul, [facility] [address] [place] [address] Jul, Low back pain M54.5 [facility] [address] [place] [address] Jul, [facility] [address] [place] [address] Jun, [facility] [id number] [place] [address] Jun, Anxiety F41.9 and Low back pain M54.5 [facility] [id number] [place] [address] Jun, Shortness of breath R06.02 [facility] [id number] [place] [address] May, Anxiety F41.9 and Low back pain M54.5 [facility] [id number] [place] [address] May, [facility] [id number] [place] [address] Apr, [facility] [id number] [place] [address] Apr, Chronic obstructive pulmonary disease, unspecified J44.9 [facility] [id number] [place] [address] Apr, [facility] [id number] [place] [address] Apr, Chronic obstructive pulmonary disease, unspecified J44.9 [facility] [id number] [place] [address] Apr, [facility] [id number] [place] [address] Apr, Anxiety F41.9 and Low back pain M54.5 [facility] [id number] [place] [address] Mar, Encounter for immunization Z23 ; Obstructive sleep apnea syndrome G47.33 ; Low back pain M54.5 and Anxiety F41.9 [facility] [address] [place] [address] Mar, Chronic obstructive pulmonary disease, unspecified J44.9 [facility] [id number] [place] [address] Mar, Chronic obstructive pulmonary disease, unspecified J44.9 [facility] [id number] [place] [address] Mar, Chronic obstructive pulmonary disease, unspecified J44.9 [facility] [address] [facility] [id number] [address] Feb, [facility] [address] [facility] [id number] [place] [address] Feb, [facility] [address] [place] [address] Feb, Chronic obstructive pulmonary disease, unspecified J44.9 [facility] [id number] [place] [address] Feb, [facility] [id number] [place] [address] Feb, Low back pain M54.5 ; Anxiety F41.9 and Bronchitis J40 [facility] [id number] [place] [address] Jan, [facility] [id number] [place] [address] 15 Jan, 2016 Anxiety F41.9 [facility] [id number] [place] [address] Jan, Chronic obstructive pulmonary disease, unspecified J44.9 [facility] [address] [address] Jan, Low back pain M54.5 [facility] [address] [place] [address] Dec, Vertigo R42 [facility] [address] [facility] [id number] [place] [address] Dec, [facility] [id number] [place] [address] Nov, [facility] [id number] [place] [address] Nov, Low back pain M54.5 and Anxiety F41.9 [facility] [id number] [place] [address] Nov, [facility] [id number] [place] [address] Nov, [facility] [id number] [place] [address] Oct, Low back pain M54.5 and Anxiety F41.9 [facility] [id number] [place] [address] September, [facility] [id number] [place] [address] Aug, Shortness of breath R06.02 [facility] [id number] [place] [address] Aug, Shortness of breath R06.02 [facility] [id number] [place] [address] Aug, [facility] [id number] [place] [address] Jul, Insomnia G47.00 and Shortness of breath R06.02 [facility] [id number] [place] [address] Jul, [facility] [id number] [place] [address] Jul, [facility] [id number] [place] [address] Jul, Bronchitis J40 [facility] [id number] [place] [address] 16 Jul, 2015 [facility] [id number] [place] [address] 18 Jun, 2015 [facility] [address] [place] [address] Jun, [facility] [id number], [place] [address] May, [facility] [address], [place] [address] May, [facility] [address], [place] [address] Apr, [facility] [address], [place] [address] Apr, [facility] [address], [place] [address] Mar, [facility] [id number] [place] [address] Mar, [facility] [id number], [place] [address] Mar, [facility] [id number] [place] [address] Feb, [facility] [address], [place] [address] Feb, [facility] [address], [place] [address] Feb, Chronic obstructive pulmonary disease, unspecified J44.9 [facility] [address], [place] [address] Jan, [facility] [address], [place] [address] Jan, [facility] [id number], [place] [address] Dec, [facility] [address], [place] [address] Dec, [facility] [id number], [place] [address] Dec, High risk medication use V58.69 ; Back pain 724.5 ; Insomnia 780.52 ; Screening, lipid V77.91 and Screening for prostate cancer V76.44 [facility] [place] [facility] [address] [id number] [place] [address] Nov, [facility] [place] [facility] [address] [id number] [place] [address] Nov, [facility] [place] [facility] [address] [facility] [id number] [place] [address] Nov, [facility] [place] [facility] [address] [id number] [place] [address] Oct, [facility] [place] [facility] [address] [id number] [place] [address] Oct, [facility] [place] [facility] [address] [facility] [id number] [place] [address] September, [facility] [place] [facility] [address] [facility] [id number] [place] [address] Aug, [facility] [place] [facility] [address] [facility] [id number] [place] [address] Aug, [facility] [place] [facility] [address] [facility] [id number] [place] [address] Jul, [facility] [place] [facility] [address] [facility] [id number] [place] [address] Jul, [facility] [place] [facility] [address] [facility] [id number], [place] [address] Jul, [facility] [place] [facility] [address] [facility] [id number] [place] [address] Jul, [facility] [place] [facility] [address] [facility] [id number] [place] [address] Jul, [facility] [place] [facility] [address] [facility] [id number] [place] [address] Jul, [facility] [place] [facility] [address] [facility] [id number] [place] [address] Jun, [facility] [place] [facility] [address] [id number] [place] [address] 06 Jun, 2014 [facility] [place] [facility] [address] [id number] [place] [address] Jun, [facility] [place] [facility] [address] [id number] [place] [address] Jun, [facility] [place] [facility] [address] [id number] [place] [address] May, [facility] [place] [facility] [address] [id number] [place] [address] May, [facility] [place] [facility] [address] [id number] [place] [address] May, [facility] [place] [facility] [address] [id number] [place] [address] May, [facility] [place] [facility] [address] [id number] [place] [address] May, [facility] [place] [facility] [address] [id number] [place] [address] May, [facility] [place] [facility] [address] [id number] [place] [address] Apr, [facility] [place] [facility] [address] [id number] [place] [address] Apr, [facility] [place] [facility] [address] [id number] [place] [address] Mar, [facility] [place] [facility] [address] [id number] [place] [address] Mar, [facility] [place] [facility] [address] [id number] [place] [address] Mar, [facility] [place] [facility] [address] [id number] [place] [address] Mar, [facility] [place] [facility] [address] [id number] [place] [address] 16 Feb, 2014 [facility] [place] [facility] [address] [id number] [place] [address] 16 Feb, 2014 [facility] [place] [facility] [address] [id number] [place] [address] 13 Feb, 2014 [facility] [place] [facility] [address] [id number] [place] [address] Feb, [facility] [place] [facility] [address] [id number] [place] [address] 23 Jan, 2013 [facility] [place] [facility] [address] [id number] [place] [address] 23 Jan, 2013 [facility] [place] [facility] [address] [id number] [place] [address] 17 Jan, 2013 [facility] [place] [facility] [address] [id number] [place] [address] Jan, 2013 [facility] [place] [facility] [address] [id number] [place] [address] Jan, 2013 [facility] [place] [facility] [address] [id number] [place] [address] Jan, 2013 [facility] [place] [facility] [address] [id number] [place] [address] Jan, 2013 [facility] [place] [facility] [address] [id number] [place] [address] Jan, 2013 [facility] [place] [facility] [address] [id number], [place] [address] Jan, 2013 [facility] [place] [facility] [address] [id number] [place] [address] Jan, 2013 [facility] [place] [facility] [address] [id number] [place] [address] Dec, [facility] [place] [facility] [address] [id number] [place] [address] Dec, [facility] [place] [facility] [address] [id number] [place] [address] Nov, 2013 [facility] [place] [facility] [address] [id number] [place] [address] Nov, 2013 [facility] [place] [facility] [address] [id number] [place] [address] Nov, 2013 [facility] [place] [facility] [address] [id number] [place] [address] Nov, 2013 [facility] [place] [facility] [address] [id number] [place] [address] Nov, 2013 [facility] [place] [facility] [address] [id number] [place] [address] Nov, 2013 [facility] [place] [facility] [address] [id number] [place] [address] Nov, 2013 [facility] [place] [facility] [address] [id number] [place] [address] Nov, 2013 [facility] [place] [facility] [address] [id number] [place] [address] Nov, 2013 [facility] [place] [facility] [address] [id number] [place] [address] Nov, 2013 [facility] [place] [facility] [address] [id number] [place] [address] Nov, 2013 [facility] [place] [facility] [address] [id number] [place] [address] Nov, 2013 [facility] [place] [facility] [address] [id number] [place] [address] Oct, [facility] [place] [facility] [address] [id number] [place] [address] Oct, [facility] [place] [facility] [address] [id number] [place] [address] Oct, [facility] [place] [facility] [address] [id number] [place] [address] Oct, [facility] [place] [facility] [address] [id number] [place] [address] Oct, [facility] [place] [facility] [address] [id number] [place] [address] Oct, [facility] [place] [facility] [address] [id number] [place] [address] Oct, [facility] [place] [facility] [address] [id number] [place] [address] Oct, [facility] [place] [facility] [address] [id number] [place] [address] September, [facility] [place] [facility] [address] [id number] [place] [address] September, [facility] [place] [facility] [address] [id number] [place] [address] September, [facility] [place] [facility] [address] [id number] [place] [address] September, [facility] [place] [facility] [address] [id number] [place] [address] September, [facility] [place] [facility] [address] [id number] [place] [address] September, [facility] [place] [facility] [address] [id number] [place] [address] September, [facility] [place] [facility] [address] [id number] [place] [address] September, [facility] [place] [facility] [address] [id number] [place] [address] September, [facility] [place] [facility] [address] [id number] [place] [address] September, [facility] [place] [facility] [address] [id number] [place] [address] Aug, [facility] [place] [facility] [address] [id number] [place] [address] Aug, [facility] [place] [facility] [address] [id number] [place] [address] 30 Aug, 2013 [facility] [place] [facility] [address] [id number] [place] [address] 30 Aug, 2013 [facility] [place] [facility] [address] [id number] [place] [address] Aug, [facility] [place] [facility] [address] [id number] [place] [address] Aug, [facility] [place] [facility] [address] [id number] [place] [address] Aug, [facility] [place] [facility] [address] [id number] [place] [address] Aug, [facility] [place] [facility] [address] [id number] [place] [address] Aug, [facility] [place] [facility] [address] [id number] [place] [address] Aug, [facility] [place] [facility] [address] [id number] [place] [address] Aug, [facility] [place] [facility] [address] [id number] [place] [address] Aug, [facility] [place] [facility] [address] [id number] [place] [address] Aug, [facility] [place] [facility] [address] [id number] [place] [address] Aug, [facility] [place] [facility] [address] [id number] [place] [address] 24 Jul, 2013 [facility] [place] [facility] [address] [id number] [place] [address] Jul, [facility] [place] [facility] [address] [id number] [place] [address] Jul, [facility] [place] [facility] [address] [id number] [place] [address] Jul, [facility] [place] [facility] [address] [id number] [place] [address] Jun, [facility] [place] [facility] [address] [id number] [place] [address] Jun, [facility] [place] [facility] [address] [id number] [place] [address] Jun, [facility] [place] [facility] [address] [id number] [place] [address] Jun, [facility] [place] [facility] [address] [id number] [place] [address] Jun, [facility] [place] [facility] [address] [id number] [place] [address] Jun, [facility] [place] [facility] [address] [id number] [place] [address] Jun, [facility] [place] [facility] [address] [id number] [place] [address] May, [facility] [place] [facility] [address] [id number] [place] [address] May, [facility] [place] [facility] [address] [id number] [place] [address] May, [facility] [place] [facility] [address] [id number] [place] [address] May, [facility] [place] [facility] [address] [id number] [place] [address] May, [facility] [place] [facility] [address] [id number] [place] [address] May, [facility] [place] [facility] [address] [id number] [place] [address] Apr, [facility] [place] [facility] [address] [id number], [place] [address] Apr, [facility] [place] [facility] [address] [id number] [place] [address] Mar, [facility] [place] [facility] [address] [id number] [place] [address] Mar, [facility] [place] [facility] [address] [id number] [place] [address] Mar, [facility] [place] [facility] [address] [id number] [place] [address] Mar, [facility] [place] [facility] [address] [id number] [place] [address] Mar, [facility] [place] [facility] [address] [id number] [place] [address] Mar, [facility] [place] [facility] [address] [id number] [place] [address] Feb, [facility] [place] [facility] [address] [id number] [place] [address] Feb, [facility] [place] [facility] [address] [id number] [place] [address] Feb, [facility] [place] [facility] [address] [id number] [place] [address] Feb, [facility] [place] [facility] [address] [id number], [place] [address] Feb, [facility] [place] [facility] [address] [id number], [place] [address] Jan, [facility] [place] [facility] [address] [id number] [place] [address] Dec, [facility] [place] [facility] [address] [id number], [place] [address] Dec, [facility] [place] [facility] [address] [id number] [place] [address] Oct, [facility] [place] [facility] [address] [id number] [place] [address] Oct, [facility] [address] [id number] [place] [address] Oct, [facility] [address] [id number] [place] [address] September, [facility] [address] [id number] [place] [address] September, [facility] [address] [id number] [place] [address] Aug, [facility] [address] [id number] [place] [address] Aug, [facility] [address] [id number] [place] [address] Jul, [facility] [address] [id number] [place] [address] May, [facility] [address] [id number] [place] [address] May, [facility] [address] [id number] [place] [address] Apr, [facility] [address] [id number] [place] [address] Apr, [facility] [address] [id number] [place] [address] Apr, [facility] [address] [id number] [place] [address] Apr, [facility] [address] [id number] [place] [address] Apr, [facility] [address] [id number] [place] [address] Apr, [facility] [address] [id number] [place] [address] Apr, [facility] [place] [facility] [address] [id number] [place] [address] Apr, [facility] [place] [facility] [address] [id number] [place] [address] Mar, [facility] [place] [facility] [address] [id number] [place] [address] Mar, [facility] [place] [facility] [address] [id number] [place] [address] Feb, [facility] [place] [facility] [address] [id number] [place] [address] Feb, [facility] [place] [facility] [address] [id number] [place] [address] Feb, [facility] [place] [facility] [address] [id number] [place] [address] Jan, [facility] [place] [facility] [address] [id number] [place] [address] Jan, [facility] [place] [facility] [address] [id number] [place] [address] Dec, [facility] [place] [facility] [address] [id number] [place] [address] Dec, [facility] [place] [facility] [address] [id number] [place] [address] Dec, [facility] [place] [facility] [address] [id number] [place] [address] Dec, [facility] [place] [facility] [address] [id number] [place] [address] Nov, [facility] [place] [facility] [address] [id number] [place] [address] Nov, [facility] [place] [facility] [address] [id number] [place] [address] Nov, [facility] [place] [facility] [address] [id number] [place] [address] September, [facility] [address] [id number] [place] [address] September, [facility] [place] [facility] [address] [id number] [place] [address] September, [facility] [place] [facility] [address] [id number] [place] [address] Aug, [facility] [place] [facility] [address] [id number] [place] [address] Jun, [facility] [place] [facility] [address] [id number] [place] [address] May, [facility] [place] [facility] [address] [id number] [place] [address] Apr, [facility] [place] [facility] [address] [id number] [place] [address] Apr, [facility] [place] [facility] [address] [id number] [place] [address] Apr, [facility] [place] [facility] [address] [id number] [place] [address] Mar, [facility] [place] [facility] [address] [id number] [place] [address] Mar, [facility] [place] [facility] [address] [id number] [place] [address] Feb, [facility] [place] [facility] [address] [id number] [place] [address] Feb, [facility] [place] [facility] [address] [id number] [place] [address] Feb, [facility] [place] [facility] [address] [id number] [place] [address] Feb, [facility] [place] [facility] [address] [id number] [place] [address] Nov, [facility] [place] [facility] [address] [facility] [id number] [place] [address] 13 Oct, 2010 IMMUNIZATIONS No Known Immunizations SOCIAL HISTORY Never Assessed REASON FOR VISIT EMR-[facility] PLAN OF CARE VITAL SIGNS MEDICATIONS Unknown [...] Hospitalization History sepsis at [facility] 08/2017 Hospitalization History pancreatitis 03/2018
--- OUTSIDE RECORDS SUMMARY | 2018-10-24 13:37 | XMS REPORT ---
Author Author Migration, Doctor Organization [facility] Address Unknown Phone Unavailable Care Team Providers Care Pipe Organ Mechanic Name Role Phone Migration, Doctor Unavailable Unavailable PROBLEMS Type Condition ICD9-CM Code UML77-CG Code Onset Dates Condition Status SNOMED Code Problem Shortness of breath R06.02 Active 297836203 Problem Primary insomnia F51.01 Active 8758187 Problem Anxiety F41.9 Active 04374772 Problem Insomnia G47.00 Active 835170938 Problem Chronic obstructive pulmonary disease, unspecified J44.9 Active 68678203 Problem Low back pain M54.5 Active 398841538 Problem Other obesity due to excess calories E66.09 Active 33068239364205 Problem Obstructive sleep apnea syndrome G47.33 Active 12470981 Problem Acute exacerbation of chronic obstructive pulmonary disease (COPD) J44.1 Active 758579311 Problem Chronic obstructive pulmonary disease with (acute) exacerbation J44.1 Active 144079477 Problem Thrombocytopenia D69.6 Active 557723295 Problem Chronic bronchitis, unspecified chronic bronchitis type J42 Active 79615089 Problem Body mass index (BMI) of 50-59.9 in adult Z68.43 Active 342008290 Problem Mild intermittent asthma without complication J45.20 Active 165621600 Problem COPD exacerbation J44.1 Active 761262175 Problem Other emphysema J43.8 Active 83081953 Problem Gastroesophageal reflux disease without esophagitis K21.9 Active 166963601 Problem Dysthymia F34.1 Active 68517206 Problem Essential hypertension I10 Active 75570679 Problem Other chronic pain G89.29 Active 46800019 Problem Status post cholecystectomy Z90.49 Active 360944704 Problem Hypoalbuminemia E88.09 Active 693539427 ALLERGIES No Information ENCOUNTERS Encounter Location Date Diagnosis [facility] [place] [id number], [place] [address] Aug, Encounter for Medicare annual wellness exam Z00.00 [facility] [place] [id number], [place] [address] Aug, Anxiety F41.9 [facility] [place] [id number] [place] [address] Jul, Primary insomnia F51.01 [facility] [place] [id number] [place] [address] Jul, Anxiety F41.9 [facility] [place] [address] [address] Jun, Primary insomnia F51.01 [facility] [place] [id number] [place] [address] 18 Jun, 2018 Chronic bronchitis, unspecified chronic bronchitis type J42 [place] [id number] [place] [address] 14 Jun, 2018 Anxiety F41.9 [facility] [id number] [place] [address] 12 Jun, 2018 COPD exacerbation J44.1 and BMI 40.0-44.9, adult Z68.41 [facility] [place] [id number] [place] [address] 05 Jun, 2018 Primary insomnia F51.01 [facility] [id number] [place] [address] 02 Jun, 2018 Wheezing R06.2 ; Cough R05 and BMI 40.0-44.9, adult Z68.41 [facility] [place] [id number] [place] [address] Jun, [facility] [place] [id number] [place] [address] May, [facility] [place] [id number] [place] [address] May, Chronic obstructive pulmonary disease, unspecified J44.9 ; Anxiety F41.9 and BMI 40.0-44.9, adult Z68.41 [facility] [place] [id number] [place] [address] May, Primary insomnia F51.01 [address] [place] [address] Apr, [place] [id number] [place] [address] Apr, Pneumonia due to infectious organism, unspecified laterality, unspecified part of lung J18.9 ; Hypoalbuminemia E88.09 ; Status post bariatric surgery Z98.84 and BMI 40.0-44.9, adult Z68.41 [address] [place] [address] 11 Apr, 2018 Primary insomnia F51.01 [place] [id number] [place] [address] 28 Mar, 2018 Shortness of breath R06.02 ; Anasarca R60.1 ; Weakness R53.1 ; Status post cholecystectomy Z90.49 and History of pancreatitis Z87.19 [place] [id number] [place] [address] 13 Mar, 2018 Primary insomnia F51.01 [place] [id number] [place] [address] Feb, Pain in right knee M25.561 [address] [address] [address] 24 Feb, 2018 Status post bariatric surgery Z98.84 ; Chronic obstructive pulmonary disease, unspecified J44.9 ; Pain in right knee M25.561 ; Pain in left knee M25.562 ; Other chronic pain G89.29 ; Encounter for immunization Z23 and BMI 45.0-49.9, adult Z68.42 [place] [id number] [place] [address] 16 Feb, 2018 Primary insomnia F51.01 [place] [id number] [place] [address] 14 Jan, 2018 Anxiety F41.9 and Primary insomnia F51.01 [address] [address] [address] Dec, Anxiety F41.9 ; Primary insomnia F51.01 ; Low back pain M54.5 ; BMI 50.0-59.9, adult Z68.43 ; Shortness of breath R06.02 and Essential hypertension I10 [address] [address] Dec, Low back pain M54.5 and Primary insomnia F51.[address] [address] Dec, [address] [address] Nov, Acute exacerbation of chronic obstructive pulmonary disease (COPD) J44.1 ; Primary insomnia F51.01 and Low back pain M54.[address] [address] September, BMI 50.0-59.9, adult Z68.43 and Chronic obstructive pulmonary disease, unspecified COPD type J44.[address] [address] Aug, Chronic obstructive pulmonary disease, unspecified J44.9 ; Primary insomnia F51.01 ; Low back pain M54.5 and BMI 50.0-59.9, adult Z68.[address] [address] 16 Aug, 2017 Shortness of breath R06.02 ; Loose stools R19.5 and BMI 50.0-59.9, adult Z68.[address] [address] Aug, Acute renal injury N17.9 and Thrombocytopenia D69.[address] [address] May, [facility] [place] [address], [place] [address] Apr, [facility] [id number] [place] [address] Mar, Acute exacerbation of chronic obstructive pulmonary disease (COPD) J44.1 ; BMI 50.0-59.9, adult Z68.43 and BMI 60.0-69.9, adult Z68.44 [facility] [place] [id number] [place] [address] Mar, [facility] [place] [id number] [place] [address] Feb, Right anterior shoulder pain M25.511 ; Encounter for immunization Z23 ; Other emphysema J43.8 ; Other obesity due to excess calories E66.09 ; Body mass index (BMI) of 50-59.9 in adult Z68.43 and Low back pain M54.5 [facility] [place] [id number] [place] [address] Feb, [facility] [place] [id number] [place] [address] Feb, Low back pain M54.5 [facility] [place] [id number] [place] [address] Jan, [facility] [place] [id number] [place] [address] Jan, Low back pain M54.5 [facility] [place] [id number] [place] [address] Dec, Shortness of breath R06.02 [facility] [place] [id number] [place] [address] Dec, Low back pain M54.5 [facility] [place] [id number] [place] [address] Nov, Low back pain M54.5 [facility] [place] [address], [place] [address] Oct, [facility] [place] [id number] [place] [address] Oct, Low back pain M54.5 [facility] [place] [id number] [place] [address] September, Low back pain M54.5 [facility] [id number] [place] [address] September, Sore throat J02.9 and Strep throat J02.0 [facility] [place] [id number] [place] [address] September, [facility] [place] [id number] [place] [address] Aug, Low back pain M54.5 [facility] [place] [id number] [place] [address] Aug, Medicare welcome exam Z00.00 ; Prostate cancer screening Z12.5 ; Encounter for screening for lung cancer Z12.2 and Lipid screening Z13.220 [facility] [place] [id number] [place] [address] Jul, [facility] [place] [id number] [place] [address] Jul, Low back pain M54.5 [facility] [place] [id number] [place] [address] Jul, [facility] [place] [id number] [place] [address] Jun, [facility] [place] [id number] [place] [address] Jun, Anxiety F41.9 and Low back pain M54.5 [facility] [place] [id number] [place] [address] Jun, Shortness of breath R06.02 [facility] [place] [id number] [place] [address] May, Anxiety F41.9 and Low back pain M54.5 [facility] [place] [id number] [place] [address] May, [facility] [place] [id number] [place] [address] Apr, [facility] [place] [id number] [place] [address] Apr, Chronic obstructive pulmonary disease, unspecified J44.9 [facility] [place] [id number] [place] [address] Apr, [facility] [place] [id number] [place] [address] Apr, Chronic obstructive pulmonary disease, unspecified J44.9 [facility] [place] [id number] [place] [address] Apr, [facility] [place] [id number] [place] [address] Apr, Anxiety F41.9 and Low back pain M54.5 [facility] [place] [id number] [place] [address] Mar, Encounter for immunization Z23 ; Obstructive sleep apnea syndrome G47.33 ; Low back pain M54.5 and Anxiety F41.9 [facility] [place] [id number] [place] [address] Mar, Chronic obstructive pulmonary disease, unspecified J44.9 [facility] [place] [id number] [place] [address] Mar, Chronic obstructive pulmonary disease, unspecified J44.9 [facility] [place] [id number] [place] [address] Mar, Chronic obstructive pulmonary disease, unspecified J44.9 [facility] [place] [address] [facility] [id number] [address] Feb, [facility] [place] [address] [facility] [id number] [place] [id number] Feb, [facility] [place] [id number] [place] [address] Feb, Chronic obstructive pulmonary disease, unspecified J44.9 [facility] [place] [id number] [place] [address] Feb, [facility] [place] [id number] [place] [address] Feb, Low back pain M54.5 ; Anxiety F41.9 and Bronchitis J40 [facility] [place] [id number] [place] [address] Jan, [facility] [place] [id number] [place] [address] 15 Jan, 2016 Anxiety F41.9 [facility] [place] [id number] [place] [address] Jan, Chronic obstructive pulmonary disease, unspecified J44.9 [facility] [place] [address], [place] [address] Jan, Low back pain M54.5 [facility] [place] [id number] [place] [address] Dec, Vertigo R42 [facility] [place] [address] [facility] [id number] [place] [address] Dec, [facility] [place] [id number] [place] [address] Nov, [facility] [place] [id number] [place] [address] Nov, Low back pain M54.5 and Anxiety F41.9 [facility] [place] [id number] [place] [address] Nov, [facility] [place] [id number] [place] [address] Nov, [facility] [place] [id number] [place] [address] Oct, Low back pain M54.5 and Anxiety F41.9 [facility] [place] [id number] [place] [address] September, [facility] [place] [id number] [place] [address] Aug, Shortness of breath R06.02 [facility] [place] [id number] [place] [address] Aug, Shortness of breath R06.02 [facility] [place] [id number] [place] [address] Aug, [facility] [place] [id number] [place] [address] Jul, Insomnia G47.00 and Shortness of breath R06.02 [facility] [place] [id number] [place] [address] Jul, [facility] [place] [id number] [place] [address] Jul, [facility] [place] [id number] [place] [address] Jul, Bronchitis J40 [facility] [place] [id number] [place] [address] 16 Jul, 2015 [facility] [place] [id number] [place] [address] 18 Jun, 2015 [facility] [place] [id number] [place] [address] Jun, [facility] [place] [id number], [place] [address] May, [facility] [address], [place] [address] May, [facility] [address], [place] [address] Apr, [facility] [id number], [place] [address] Apr, [facility] [address], [place] [address] Mar, [facility] [id number] [place] [address] Mar, [facility] [id number], [place] [address] Mar, [facility] [id number] [place] [address] Feb, [facility] [id number], [place] [address] Feb, [facility] [id number], [place] [address] Feb, Chronic obstructive pulmonary disease, unspecified J44.9 [facility] [id number], [place] [address] Jan, [facility] [id number], [place] [address] Jan, [facility] [id number], [place] [address] Dec, [facility] [id number], [place] [address] Dec, [facility] [id number], [place] [address] Dec, High risk medication use V58.69 ; Back pain 724.5 ; Insomnia 780.52 ; Screening, lipid V77.91 and Screening for prostate cancer V76.44 [facility] [place] [facility] [address] [id number] [place] [address] Nov, [facility] [place] [facility] [address] [id number] [place] [address] Nov, [facility] [place] [facility] [address] [facility] [id number] [place] [address] Nov, [facility] [place] [facility] [address] [id number] [place] [address] Oct, [facility] [place] [facility] [address] [id number] [place] [address] Oct, [facility] [place] [facility] [address] [facility] [id number] [place] [address] September, [facility] [place] [facility] [address] [facility] [id number] [place] [address] Aug, [facility] [place] [facility] [address] [facility] [id number] [place] [address] Aug, [facility] [place] [facility] [address] [facility] [id number] [place] [address] Jul, [facility] [place] [facility] [address] [facility] [id number] [place] [address] Jul, [facility] [place] [facility] [address] [facility] [id number] [address] Jul, [facility] [place] [facility] [address] [facility] [id number] [place] [address] Jul, [facility] [place] [facility] [address] [facility] [id number] [place] [address] Jul, [facility] [place] [facility] [address] [facility] [id number] [place] [address] Jul, [facility] [place] [facility] [address] [facility] [id number] [place] [address] Jun, [facility] [place] [facility] [address] [id number] [place] [address] 06 Jun, 2014 [facility] [place] [facility] [address] [id number] [place] [address] Jun, [facility] [place] [facility] [address] [id number] [place] [address] Jun, [facility] [place] [facility] [address] [id number] [place] [address] May, [facility] [place] [facility] [address] [id number] [place] [address] May, [facility] [place] [facility] [address] [id number] [place] [address] May, [facility] [place] [facility] [address] [id number] [place] [address] May, [facility] [place] [facility] [address] [id number] [place] [address] May, [facility] [place] [facility] [address] [id number] [place] [address] May, [facility] [place] [facility] [address] [id number] [place] [address] Apr, [facility] [place] [facility] [address] [id number] [place] [address] Apr, [facility] [place] [facility] [address] [id number] [place] [address] Mar, [facility] [place] [facility] [address] [id number] [place] [address] Mar, [facility] [place] [facility] [address] [id number] [place] [address] Mar, [facility] [place] [facility] [address] [id number] [place] [address] Mar, [facility] [place] [facility] [address] [id number] [place] [address] 16 Feb, 2014 [facility] [place] [facility] [address] [id number] [place] [address] 16 Feb, 2014 [facility] [place] [facility] [address] [id number] [place] [address] 13 Feb, 2014 [facility] [place] [facility] [address] [id number] [place] [address] Feb, [facility] [place] [facility] [address] [id number] [place] [address] 23 Jan, 2013 [facility] [place] [facility] [address] [id number] [place] [address] 23 Jan, 2013 [facility] [place] [facility] [address] [id number] [place] [address] 17 Jan, 2013 [facility] [place] [facility] [address] [id number] [place] [address] Jan, 2013 [facility] [place] [facility] [address] [id number] [place] [address] Jan, 2013 [facility] [place] [facility] [address] [id number] [place] [address] Jan, 2013 [facility] [place] [facility] [address] [id number] [place] [address] Jan, 2013 [facility] [place] [facility] [address] [id number] [place] [address] Jan, 2013 [facility] [place] [facility] [address] [id number] [address] Jan, 2013 [facility] [place] [facility] [address] [id number] [place] [address] Jan, 2013 [facility] [place] [facility] [address] [id number] [place] [address] Dec, [facility] [place] [facility] [address] [id number] [place] [address] Dec, [facility] [place] [facility] [address] [id number] [place] [address] Nov, 2013 [facility] [place] [facility] [address] [id number] [place] [address] Nov, 2013 [facility] [place] [facility] [address] [id number] [place] [address] Nov, 2013 [facility] [place] [facility] [address] [id number] [place] [address] Nov, 2013 [facility] [place] [facility] [address] [id number] [place] [address] Nov, 2013 [facility] [place] [facility] [address] [id number] [place] [address] Nov, 2013 [facility] [place] [facility] [address] [id number] [place] [address] Nov, 2013 [facility] [place] [facility] [address] [id number] [place] [address] Nov, 2013 [facility] [place] [facility] [address] [id number] [place] [address] Nov, 2013 [facility] [place] [facility] [address] [id number] [place] [address] Nov, 2013 [facility] [place] [facility] [address] [id number] [place] [address] Nov, 2013 [facility] [place] [facility] [address] [id number] [place] [address] Nov, 2013 [facility] [place] [facility] [address] [id number] [place] [address] Oct, [facility] [place] [facility] [address] [id number] [place] [address] Oct, [facility] [place] [facility] [address] [id number] [place] [address] Oct, [facility] [place] [facility] [address] [id number] [place] [address] Oct, [facility] [place] [facility] [address] [id number] [place] [address] Oct, [facility] [place] [facility] [address] [id number] [place] [address] Oct, [facility] [place] [facility] [address] [id number] [place] [address] Oct, [facility] [place] [facility] [address] [id number] [place] [address] Oct, [facility] [place] [facility] [address] [id number] [place] [address] September, [facility] [place] [facility] [address] [id number] [place] [address] September, [facility] [place] [facility] [address] [id number] [place] [address] September, [facility] [place] [facility] [address] [id number] [place] [address] September, [facility] [place] [facility] [address] [id number] [place] [address] September, [facility] [place] [facility] [address] [id number] [place] [address] September, [facility] [place] [facility] [address] [id number] [place] [address] September, [facility] [place] [facility] [address] [id number] [place] [address] September, [facility] [place] [facility] [address] [id number] [place] [address] September, [facility] [place] [facility] [address] [id number] [place] [address] September, [facility] [place] [facility] [address] [id number] [place] [address] Aug, [facility] [place] [facility] [address] [id number] [place] [address] Aug, [facility] [place] [facility] [address] [id number] [place] [address] 30 Aug, 2013 [facility] [place] [facility] [address] [id number] [place] [address] 30 Aug, 2013 [facility] [place] [facility] [address] [id number] [place] [address] Aug, [facility] [place] [facility] [address] [id number] [place] [address] Aug, [facility] [place] [facility] [address] [id number] [place] [address] Aug, [facility] [place] [facility] [address] [id number] [place] [address] Aug, [facility] [place] [facility] [address] [id number] [place] [address] Aug, [facility] [place] [facility] [address] [id number] [place] [address] Aug, [facility] [place] [facility] [address] [id number] [place] [address] Aug, [facility] [place] [facility] [address] [id number] [place] [address] Aug, [facility] [place] [facility] [address] [id number] [place] [address] Aug, [facility] [place] [facility] [address] [id number] [place] [address] Aug, [facility] [place] [facility] [address] [id number] [place] [address] 24 Jul, 2013 [facility] [place] [facility] [address] [id number] [place] [address] Jul, [facility] [place] [facility] [address] [id number] [place] [address] Jul, [facility] [place] [facility] [address] [id number] [place] [address] Jul, [facility] [place] [facility] [address] [id number] [place] [address] Jun, [facility] [place] [facility] [address] [id number] [place] [address] Jun, [facility] [place] [facility] [address] [id number] [place] [address] Jun, [facility] [place] [facility] [address] [id number] [place] [address] Jun, [facility] [place] [facility] [address] [id number] [place] [address] Jun, [facility] [place] [facility] [address] [id number] [place] [address] Jun, [facility] [place] [facility] [address] [id number] [place] [address] Jun, [facility] [place] [facility] [address] [id number] [place] [address] May, [facility] [place] [facility] [address] [id number] [place] [address] May, [facility] [place] [facility] [address] [id number] [place] [address] May, [facility] [place] [facility] [address] [id number] [place] [address] May, [facility] [place] [facility] [address] [id number] [place] [address] May, [facility] [place] [facility] [address] [id number] [place] [address] May, [facility] [place] [facility] [address] [id number] [place] [address] Apr, [facility] [place] [facility] [address] [id number], [place] [address] Apr, [facility] [place] [facility] [address] [id number] [place] [address] Mar, [facility] [place] [facility] [address] [id number] [place] [address] Mar, [facility] [place] [facility] [address] [id number] [place] [address] Mar, [facility] [place] [facility] [address] [id number] [place] [address] Mar, [facility] [place] [facility] [address] [id number] [place] [address] Mar, [facility] [place] [facility] [address] [id number] [place] [address] Mar, [facility] [place] [facility] [address] [id number] [place] [address] Feb, [facility] [place] [facility] [address] [id number] [place] [address] Feb, [facility] [place] [facility] [address] [id number] [place] [address] Feb, [facility] [place] [facility] [address] [id number] [place] [address] Feb, [facility] [place] [facility] [address] [id number], [place] [address] Feb, [facility] [place] [facility] [address] [id number], [place] [address] Jan, [facility] [place] [facility] [address] [id number] [place] [address] Dec, [facility] [place] [facility] [address] [id number], [place] [address] Dec, [facility] [place] [facility] [address] [id number] [place] [address] Oct, [facility] [place] [facility] [address] [id number] [place] [address] Oct, [facility] [address] [id number] [place] [address] Oct, [facility] [address] [id number] [place] [address] September, [facility] [address] [id number] [place] [address] September, [facility] [address] [id number] [place] [address] Aug, [facility] [address] [id number] [place] [address] Aug, [facility] [address] [id number] [place] [address] Jul, [facility] [address] [id number] [place] [address] May, [facility] [address] [id number] [place] [address] May, [facility] [address] [id number] [place] [address] Apr, [facility] [address] [id number] [place] [address] Apr, [facility] [address] [id number] [place] [address] Apr, [facility] [address] [id number] [place] [address] Apr, [facility] [address] [id number] [place] [address] Apr, [facility] [address] [id number] [place] [address] Apr, [facility] [address] [id number] [place] [address] Apr, [facility] [place] [facility] [address] [id number] [place] [address] Apr, [facility] [place] [facility] [address] [id number] [place] [address] Mar, [facility] [place] [facility] [address] [id number] [place] [address] Mar, [facility] [place] [facility] [address] [id number] [place] [address] Feb, [facility] [place] [facility] [address] [id number] [place] [address] Feb, [facility] [place] [facility] [address] [id number] [place] [address] Feb, [facility] [place] [facility] [address] [id number] [place] [address] Jan, [facility] [place] [facility] [address] [id number] [place] [address] Jan, [facility] [place] [facility] [address] [id number] [place] [address] Dec, [facility] [place] [facility] [address] [id number] [place] [address] Dec, [facility] [place] [facility] [address] [id number] [place] [address] Dec, [facility] [place] [facility] [address] [id number] [place] [address] Dec, [facility] [place] [facility] [address] [id number] [place] [address] Nov, [facility] [place] [facility] [address] [id number] [place] [address] Nov, [facility] [place] [facility] [address] [id number] [place] [address] Nov, [facility] [place] [facility] [address] [id number] [place] [address] September, [facility] [address] [id number] [place] [address] September, [facility] [place] [facility] [address] [id number] [place] [address] September, [facility] [place] [facility] [address] [id number] [place] [address] Aug, [facility] [place] [facility] [address] [id number] [place] [address] Jun, [facility] [place] [facility] [address] [id number] [place] [address] May, [facility] [place] [facility] [address] [id number] [place] [address] Apr, [facility] [place] [facility] [address] [id number] [place] [address] Apr, [facility] [place] [facility] [address] [id number] [place] [address] Apr, [facility] [place] [facility] [address] [id number] [place] [address] Mar, [facility] [place] [facility] [address] [id number] [place] [address] Mar, [facility] [place] [facility] [address] [id number] [place] [address] Feb, [facility] [place] [facility] [address] [id number] [place] [address] Feb, [facility] [place] [facility] [address] [id number] [place] [address] Feb, [facility] [place] [facility] [address] [id number] [place] [address] Feb, [facility] [place] [facility] [address] [id number] [place] [address] Nov, [facility] [place] [facility] [address] [facility] [id number] [place] [address] 13 Oct, 2010 IMMUNIZATIONS No Known Immunizations SOCIAL HISTORY Never Assessed REASON FOR VISIT [place] [place] VITAL SIGNS MEDICATIONS Unknown [...] for surgery only Hospitalization History sepsis at [facility] 08/2017 Hospitalization History pancreatitis 03/2018
--- OUTSIDE RECORDS SUMMARY | 2018-10-24 13:38 | XMS REPORT ---
Author Author Migration, Doctor Organization [facility] Address Unknown Phone Unavailable Care Team Providers Care Associate Relations Specialist Name Role Phone Migration, Doctor Unavailable Unavailable PROBLEMS Type Condition ICD9-CM Code IUR34-AB Code Onset Dates Condition Status SNOMED Code Problem Shortness of breath R06.02 Active 849889499 Problem Primary insomnia F51.01 Active 8098696 Problem Anxiety F41.9 Active 47376651 Problem Insomnia G47.00 Active 202311743 Problem Chronic obstructive pulmonary disease, unspecified J44.9 Active 67906416 Problem Low back pain M54.5 Active 253998507 Problem Other obesity due to excess calories E66.09 Active 11800327406593 Problem Obstructive sleep apnea syndrome G47.33 Active 24394380 Problem Acute exacerbation of chronic obstructive pulmonary disease (COPD) J44.1 Active 862087784 Problem Chronic obstructive pulmonary disease with (acute) exacerbation J44.1 Active 830494881 Problem Thrombocytopenia D69.6 Active 153669126 Problem Chronic bronchitis, unspecified chronic bronchitis type J42 Active 83746865 Problem Body mass index (BMI) of 50-59.9 in adult Z68.43 Active 073164574 Problem Mild intermittent asthma without complication J45.20 Active 289798916 Problem COPD exacerbation J44.1 Active 416535519 Problem Other emphysema J43.8 Active 60007681 Problem Gastroesophageal reflux disease without esophagitis K21.9 Active 616616258 Problem Dysthymia F34.1 Active 97892047 Problem Essential hypertension I10 Active 94890942 Problem Other chronic pain G89.29 Active 86996047 Problem Status post cholecystectomy Z90.49 Active 619648275 Problem Hypoalbuminemia E88.09 Active 616304508 ALLERGIES No Information ENCOUNTERS Encounter Location Date Diagnosis [facility] [id number] [address] Aug, Encounter for Medicare annual wellness exam Z00.00 [facility] [id number] [address] Aug, Anxiety F41.9 [facility] [id number] [place] [address] Jul, Primary insomnia F51.01 [facility] [id number] [place] [address] Jul, Anxiety F41.9 [facility] [address] [address] Jun, Primary insomnia F51.01 [facility] [id number] [place] [address] 18 Jun, 2018 Chronic bronchitis, unspecified chronic bronchitis type J42 [address] [facility] [id number] [place] [address] 14 Jun, 2018 Anxiety F41.9 [facility] [id number] [place] [address] 12 Jun, 2018 COPD exacerbation J44.1 and BMI 40.0-44.9, adult Z68.41 [facility] [id number] [place] [address] 05 Jun, 2018 Primary insomnia F51.01 [facility] [id number] [place] [address] 02 Jun, 2018 Wheezing R06.2 ; Cough R05 and BMI 40.0-44.9, adult Z68.41 [facility] [id number] [place] [address] Jun, [facility] [id number] [place] [address] May, [facility] [id number] [place] [address] May, Chronic obstructive pulmonary disease, unspecified J44.9 ; Anxiety F41.9 and BMI 40.0-44.9, adult Z68.41 [facility] [id number] [place] [address] May, Primary insomnia F51.01 [address] [address] Apr, [address] [place] [id number] [place] [address] Apr, Pneumonia due to infectious organism, unspecified laterality, unspecified part of lung J18.9 ; Hypoalbuminemia E88.09 ; Status post bariatric surgery Z98.84 and BMI 40.0-44.9, adult Z68.41 [address] [address] 11 Apr, 2018 Primary insomnia F51.01 [address] [place] [id number] [place] [address] 28 Mar, 2018 Shortness of breath R06.02 ; Anasarca R60.1 ; Weakness R53.1 ; Status post cholecystectomy Z90.49 and History of pancreatitis Z87.19 [facility] [facility] [id number] [place] [address] 13 Mar, 2018 Primary insomnia F51.01 [address] [place] [id number] [place] [address] Feb, Pain in right knee M25.561 [address] [address] 24 Feb, 2018 Status post bariatric surgery Z98.84 ; Chronic obstructive pulmonary disease, unspecified J44.9 ; Pain in right knee M25.561 ; Pain in left knee M25.562 ; Other chronic pain G89.29 ; Encounter for immunization Z23 and BMI 45.0-49.9, adult Z68.42 [address] [place] [id number] [place] [address] 16 Feb, 2018 Primary insomnia F51.01 [address] [place] [id number] [place] [address] 14 Jan, 2018 Anxiety F41.9 and Primary insomnia F51.01 [address] [address] Dec, Anxiety F41.9 ; Primary insomnia F51.01 ; Low back pain M54.5 ; BMI 50.0-59.9, adult Z68.43 ; Shortness of breath R06.02 and Essential hypertension I10 [address] [address] Dec, Low back pain M54.5 and Primary insomnia F51.[address] [address] Dec, [address] [address] Nov, Acute exacerbation of chronic obstructive pulmonary disease (COPD) J44.1 ; Primary insomnia F51.01 and Low back pain M54.[address] [address] September, BMI 50.0-59.9, adult Z68.43 and Chronic obstructive pulmonary disease, unspecified COPD type J44.[address] [address] Aug, Chronic obstructive pulmonary disease, unspecified J44.9 ; Primary insomnia F51.01 ; Low back pain M54.5 and BMI 50.0-59.9, adult Z68.[address] [address] 16 Aug, 2017 Shortness of breath R06.02 ; Loose stools R19.5 and BMI 50.0-59.9, adult Z68.[address] [address] Aug, Acute renal injury N17.9 and Thrombocytopenia D69.[address] [address] May, [facility] [address] [address] Apr, [facility] [id number] [place] [address] Mar, Acute exacerbation of chronic obstructive pulmonary disease (COPD) J44.1 ; BMI 50.0-59.9, adult Z68.43 and BMI 60.0-69.9, adult Z68.44 [facility] [id number] [place] [address] Mar, [facility] [id number] [place] [address] Feb, Right anterior shoulder pain M25.511 ; Encounter for immunization Z23 ; Other emphysema J43.8 ; Other obesity due to excess calories E66.09 ; Body mass index (BMI) of 50-59.9 in adult Z68.43 and Low back pain M54.5 [facility] [id number] [place] [address] Feb, [facility] [id number] [place] [address] Feb, Low back pain M54.5 [facility] [id number] [place] [address] Jan, [facility] [id number] [place] [address] Jan, Low back pain M54.5 [facility] [id number] [place] [address] Dec, Shortness of breath R06.02 [facility] [id number] [place] [address] Dec, Low back pain M54.5 [facility] [id number] [place] [address] Nov, Low back pain M54.5 [facility] [address] [address] Oct, [facility] [id number] [place] [address] Oct, Low back pain M54.5 [facility] [address] [place] [address] September, Low back pain M54.5 [facility] [address] [place] [address] September, Sore throat J02.9 and Strep throat J02.0 [facility] [id number] [place] [address] September, [facility] [id number] [place] [address] Aug, Low back pain M54.5 [facility] [id number] [place] [address] Aug, Medicare welcome exam Z00.00 ; Prostate cancer screening Z12.5 ; Encounter for screening for lung cancer Z12.2 and Lipid screening Z13.220 [facility] [address] [place] [address] Jul, [facility] [address] [place] [address] Jul, Low back pain M54.5 [facility] [address] [place] [address] Jul, [facility] [address] [place] [address] Jun, [facility] [id number] [place] [address] Jun, Anxiety F41.9 and Low back pain M54.5 [facility] [id number] [place] [address] Jun, Shortness of breath R06.02 [facility] [id number] [place] [address] May, Anxiety F41.9 and Low back pain M54.5 [facility] [id number] [place] [address] May, [facility] [id number] [place] [address] Apr, [facility] [id number] [place] [address] Apr, Chronic obstructive pulmonary disease, unspecified J44.9 [facility] [id number] [place] [address] Apr, [facility] [id number] [place] [address] Apr, Chronic obstructive pulmonary disease, unspecified J44.9 [facility] [id number] [place] [address] Apr, [facility] [id number] [place] [address] Apr, Anxiety F41.9 and Low back pain M54.5 [facility] [id number] [place] [address] Mar, Encounter for immunization Z23 ; Obstructive sleep apnea syndrome G47.33 ; Low back pain M54.5 and Anxiety F41.9 [facility] [address] [place] [address] Mar, Chronic obstructive pulmonary disease, unspecified J44.9 [facility] [id number] [place] [address] Mar, Chronic obstructive pulmonary disease, unspecified J44.9 [facility] [id number] [place] [address] Mar, Chronic obstructive pulmonary disease, unspecified J44.9 [facility] [address] [facility] [id number] [address] Feb, [facility] [address] [facility] [id number] [place] [address] Feb, [facility] [address] [place] [address] Feb, Chronic obstructive pulmonary disease, unspecified J44.9 [facility] [id number] [place] [address] Feb, [facility] [id number] [place] [address] Feb, Low back pain M54.5 ; Anxiety F41.9 and Bronchitis J40 [facility] [id number] [place] [address] Jan, [facility] [id number] [place] [address] 15 Jan, 2016 Anxiety F41.9 [facility] [id number] [place] [address] Jan, Chronic obstructive pulmonary disease, unspecified J44.9 [facility] [address] [address] Jan, Low back pain M54.5 [facility] [address] [place] [address] Dec, Vertigo R42 [facility] [address] [facility] [id number] [place] [address] Dec, [facility] [id number] [place] [address] Nov, [facility] [id number] [place] [address] Nov, Low back pain M54.5 and Anxiety F41.9 [facility] [id number] [place] [address] Nov, [facility] [id number] [place] [address] Nov, [facility] [id number] [place] [address] Oct, Low back pain M54.5 and Anxiety F41.9 [facility] [id number] [place] [address] September, [facility] [id number] [place] [address] Aug, Shortness of breath R06.02 [facility] [id number] [place] [address] Aug, Shortness of breath R06.02 [facility] [id number] [place] [address] Aug, [facility] [id number] [place] [address] Jul, Insomnia G47.00 and Shortness of breath R06.02 [facility] [id number] [place] [address] Jul, [facility] [id number] [place] [address] Jul, [facility] [id number] [place] [address] Jul, Bronchitis J40 [facility] [id number] [place] [address] 16 Jul, 2015 [facility] [id number] [place] [address] 18 Jun, 2015 [facility] [address] [place] [address] Jun, [facility] [id number] [address] May, [facility] [address] [address] May, [facility] [address] [address] Apr, [facility] [address] [address] Apr, [facility] [address] [address] Mar, [facility] [address] [place] [address] Mar, [facility] [id number] [address] Mar, [facility] [address] [place] [address] Feb, [facility] [address] [address] Feb, [facility] [address] [address] Feb, Chronic obstructive pulmonary disease, unspecified J44.9 [facility] [address] [address] Jan, [facility] [address] [address] Jan, [facility] [id number] [address] Dec, [facility] [address] [address] Dec, [facility] [id number] [address] Dec, High risk medication use V58.69 ; Back pain 724.5 ; Insomnia 780.52 ; Screening, lipid V77.91 and Screening for prostate cancer V76.44 [facility] [place] [facility] [address] [id number] [place] [address] Nov, [facility] [place] [facility] [address] [id number] [place] [address] Nov, [facility] [place] [facility] [address] [facility] [id number] [place] [address] Nov, [facility] [place] [facility] [address] [id number] [place] [address] Oct, [facility] [place] [facility] [address] [id number] [place] [address] Oct, [facility] [place] [facility] [address] [facility] [id number] [place] [address] September, [facility] [place] [facility] [address] [facility] [id number] [place] [address] Aug, [facility] [place] [facility] [address] [facility] [id number] [place] [address] Aug, [facility] [place] [facility] [address] [facility] [id number] [place] [address] Jul, [facility] [place] [facility] [address] [facility] [id number] [place] [address] Jul, [facility] [place] [facility] [address] [facility] [id number] [address] Jul, [facility] [place] [facility] [address] [facility] [id number] [place] [address] Jul, [facility] [place] [facility] [address] [facility] [id number] [place] [address] Jul, [facility] [place] [facility] [address] [facility] [id number] [place] [address] Jul, [facility] [place] [facility] [address] [facility] [id number] [place] [address] Jun, [facility] [place] [facility] [address] [id number] [place] [address] 06 Jun, 2014 [facility] [place] [facility] [address] [id number] [place] [address] Jun, [facility] [place] [facility] [address] [id number] [place] [address] Jun, [facility] [place] [facility] [address] [id number] [place] [address] May, [facility] [place] [facility] [address] [id number] [place] [address] May, [facility] [place] [facility] [address] [id number] [place] [address] May, [facility] [place] [facility] [address] [id number] [place] [address] May, [facility] [place] [facility] [address] [id number] [place] [address] May, [facility] [place] [facility] [address] [id number] [place] [address] May, [facility] [place] [facility] [address] [id number] [place] [address] Apr, [facility] [place] [facility] [address] [id number] [place] [address] Apr, [facility] [place] [facility] [address] [id number] [place] [address] Mar, [facility] [place] [facility] [address] [id number] [place] [address] Mar, [facility] [place] [facility] [address] [id number] [place] [address] Mar, [facility] [place] [facility] [address] [id number] [place] [address] Mar, [facility] [place] [facility] [address] [id number] [place] [address] 16 Feb, 2014 [facility] [place] [facility] [address] [id number] [place] [address] 16 Feb, 2014 [facility] [place] [facility] [address] [id number] [place] [address] 13 Feb, 2014 [facility] [place] [facility] [address] [id number] [place] [address] Feb, [facility] [place] [facility] [address] [id number] [place] [address] 23 Jan, 2013 [facility] [place] [facility] [address] [id number] [place] [address] 23 Jan, 2013 [facility] [place] [facility] [address] [id number] [place] [address] 17 Jan, 2013 [facility] [place] [facility] [address] [id number] [place] [address] Jan, 2013 [facility] [place] [facility] [address] [id number] [place] [address] Jan, 2013 [facility] [place] [facility] [address] [id number] [place] [address] Jan, 2013 [facility] [place] [facility] [address] [id number] [place] [address] Jan, 2013 [facility] [place] [facility] [address] [id number] [place] [address] Jan, 2013 [facility] [place] [facility] [address] [id number] [address] Jan, 2013 [facility] [place] [facility] [address] [id number] [place] [address] Jan, 2013 [facility] [place] [facility] [address] [id number] [place] [address] Dec, [facility] [place] [facility] [address] [id number] [place] [address] Dec, [facility] [place] [facility] [address] [id number] [place] [address] Nov, 2013 [facility] [place] [facility] [address] [id number] [place] [address] Nov, 2013 [facility] [place] [facility] [address] [id number] [place] [address] Nov, 2013 [facility] [place] [facility] [address] [id number] [place] [address] Nov, 2013 [facility] [place] [facility] [address] [id number] [place] [address] Nov, 2013 [facility] [place] [facility] [address] [id number] [place] [address] Nov, 2013 [facility] [place] [facility] [address] [id number] [place] [address] Nov, 2013 [facility] [place] [facility] [address] [id number] [place] [address] Nov, 2013 [facility] [place] [facility] [address] [id number] [place] [address] Nov, 2013 [facility] [place] [facility] [address] [id number] [place] [address] Nov, 2013 [facility] [place] [facility] [address] [id number] [place] [address] Nov, 2013 [facility] [place] [facility] [address] [id number] [place] [address] Nov, 2013 [facility] [place] [facility] [address] [id number] [place] [address] Oct, [facility] [place] [facility] [address] [id number] [place] [address] Oct, [facility] [place] [facility] [address] [id number] [place] [address] Oct, [facility] [place] [facility] [address] [id number] [place] [address] Oct, [facility] [place] [facility] [address] [id number] [place] [address] Oct, [facility] [place] [facility] [address] [id number] [place] [address] Oct, [facility] [place] [facility] [address] [id number] [place] [address] Oct, [facility] [place] [facility] [address] [id number] [place] [address] Oct, [facility] [place] [facility] [address] [id number] [place] [address] September, [facility] [place] [facility] [address] [id number] [place] [address] September, [facility] [place] [facility] [address] [id number] [place] [address] September, [facility] [place] [facility] [address] [id number] [place] [address] September, [facility] [place] [facility] [address] [id number] [place] [address] September, [facility] [place] [facility] [address] [id number] [place] [address] September, [facility] [place] [facility] [address] [id number] [place] [address] September, [facility] [place] [facility] [address] [id number] [place] [address] September, [facility] [place] [facility] [address] [id number] [place] [address] September, [facility] [place] [facility] [address] [id number] [place] [address] September, [facility] [facility] [place] [facility] [address] [id number] [place] [address] Aug, [facility] [place] [facility] [address] [id number] [place] [address] Aug, [facility] [place] [facility] [address] [id number] [place] [address] 30 Aug, 2013 [facility] [place] [facility] [address] [id number] [place] [address] 30 Aug, 2013 [facility] [place] [facility] [address] [id number] [place] [address] Aug, [facility] [place] [facility] [address] [id number] [place] [address] Aug, [facility] [place] [facility] [address] [id number] [place] [address] Aug, [facility] [place] [facility] [address] [id number] [place] [address] Aug, [facility] [place] [facility] [address] [id number] [place] [address] Aug, [facility] [place] [facility] [address] [id number] [place] [address] Aug, [facility] [place] [facility] [address] [id number] [place] [address] Aug, [facility] [place] [facility] [address] [id number] [place] [address] Aug, [facility] [place] [facility] [address] [id number] [place] [address] Aug, [facility] [place] [facility] [address] [id number] [place] [address] Aug, [facility] [place] [facility] [address] [id number] [place] [address] 24 Jul, 2013 [facility] [place] [facility] [address] [id number] [place] [address] Jul, [facility] [place] [facility] [address] [id number] [place] [address] Jul, [facility] [place] [facility] [address] [id number] [place] [address] Jul, [facility] [place] [facility] [address] [id number] [place] [address] Jun, [facility] [place] [facility] [address] [id number] [place] [address] Jun, [facility] [place] [facility] [address] [id number] [place] [address] Jun, [facility] [place] [facility] [address] [id number] [place] [address] Jun, [facility] [place] [facility] [address] [id number] [place] [address] Jun, [facility] [place] [facility] [address] [id number] [place] [address] Jun, [facility] [place] [facility] [address] [id number] [place] [address] Jun, [facility] [place] [facility] [address] [id number] [place] [address] May, [facility] [place] [facility] [address] [id number] [place] [address] May, [facility] [place] [facility] [address] [id number] [place] [address] May, [facility] [place] [facility] [address] [id number] [place] [address] May, [facility] [place] [facility] [address] [id number] [place] [address] May, [facility] [place] [facility] [address] [id number] [place] [address] May, [facility] [place] [facility] [address] [id number] [place] [address] Apr, [facility] [place] [facility] [address] [id number] [address] Apr, [facility] [place] [facility] [address] [id number] [place] [address] Mar, [facility] [place] [facility] [address] [id number] [place] [address] Mar, [facility] [place] [facility] [address] [id number] [place] [address] Mar, [facility] [place] [facility] [address] [id number] [place] [address] Mar, [facility] [place] [facility] [address] [id number] [place] [address] Mar, [facility] [place] [facility] [address] [id number] [place] [address] Mar, [facility] [place] [facility] [address] [id number] [place] [address] Feb, [facility] [place] [facility] [address] [id number] [place] [address] Feb, [facility] [place] [facility] [address] [id number] [place] [address] Feb, [facility] [place] [facility] [address] [id number] [place] [address] Feb, [facility] [place] [facility] [address] [id number], [place] [address] Feb, [facility] [place] [facility] [address] [id number], [place] [address] Jan, [facility] [place] [facility] [address] [id number] [place] [address] Dec, [facility] [place] [facility] [address] [id number], [place] [address] Dec, [facility] [place] [facility] [address] [id number] [place] [address] Oct, [facility] [place] [facility] [address] [id number] [place] [address] Oct, [facility] [address] [id number] [place] [address] Oct, [facility] [address] [id number] [place] [address] September, [facility] [address] [id number] [place] [address] September, [facility] [address] [id number] [place] [address] Aug, [facility] [address] [id number] [place] [address] Aug, [facility] [address] [id number] [place] [address] Jul, [facility] [address] [id number] [place] [address] May, [facility] [address] [id number] [place] [address] May, [facility] [address] [id number] [place] [address] Apr, [facility] [address] [id number] [place] [address] Apr, [facility] [address] [id number] [place] [address] Apr, [facility] [address] [id number] [place] [address] Apr, [facility] [address] [id number] [place] [address] Apr, [facility] [address] [id number] [place] [address] Apr, [facility] [address] [id number] [place] [address] Apr, [facility] [place] [facility] [address] [id number] [place] [address] Apr, [facility] [place] [facility] [address] [id number] [place] [address] Mar, [facility] [place] [facility] [address] [id number] [place] [address] Mar, [facility] [place] [facility] [address] [id number] [place] [address] Feb, [facility] [place] [facility] [address] [id number] [place] [address] Feb, [facility] [place] [facility] [address] [id number] [place] [address] Feb, [facility] [place] [facility] [address] [id number] [place] [address] Jan, [facility] [place] [facility] [address] [id number] [place] [address] Jan, [facility] [place] [facility] [address] [id number] [place] [address] Dec, [facility] [place] [facility] [address] [id number] [place] [address] Dec, [facility] [place] [facility] [address] [id number] [place] [address] Dec, [facility] [place] [facility] [address] [id number] [place] [address] Dec, [facility] [place] [facility] [address] [id number] [place] [address] Nov, [facility] [place] [facility] [address] [id number] [place] [address] Nov, [facility] [place] [facility] [address] [id number] [place] [address] Nov, [facility] [place] [facility] [address] [id number] [place] [address] September, [facility] [address] [id number] [place] [address] September, [facility] [place] [facility] [address] [id number] [place] [address] September, [facility] [place] [facility] [address] [id number] [place] [address] Aug, [facility] [place] [facility] [address] [id number] [place] [address] Jun, [facility] [place] [facility] [address] [id number] [place] [address] May, [facility] [place] [facility] [address] [id number] [place] [address] Apr, [facility] [place] [facility] [address] [id number] [place] [address] Apr, [facility] [place] [facility] [address] [id number] [place] [address] Apr, [facility] [place] [facility] [address] [id number] [place] [address] Mar, [facility] [place] [facility] [address] [id number] [place] [address] Mar, [facility] [place] [facility] [address] [id number] [place] [address] Feb, [facility] [place] [facility] [address] [id number] [place] [address] Feb, [facility] [place] [facility] [address] [id number] [place] [address] Feb, [facility] [place] [facility] [address] [id number] [place] [address] Feb, [facility] [place] [facility] [address] [id number] [place] [address] Nov, [facility] [place] [facility] [address] [facility] [id number] [place] [address] 13 Oct, 2010 IMMUNIZATIONS No Known Immunizations SOCIAL HISTORY Never Assessed REASON FOR VISIT EMR-[facility] [place] PLAN OF CARE VITAL [...] [facility] Hospitalization History pancreatitis 03/2018
--- OUTSIDE RECORDS SUMMARY | 2018-10-24 13:39 | XMS REPORT ---
Author Author Migration, Doctor Organization [facility] Address Unknown Phone Unavailable Care Team Providers Care Clock And Watch Hands Dipper Name Role Phone Migration, Doctor Unavailable Unavailable PROBLEMS Type Condition ICD9-CM Code CJC83-IQ Code Onset Dates Condition Status SNOMED Code Problem Shortness of breath R06.02 Active 558612125 Problem Primary insomnia F51.01 Active 2372035 Problem Anxiety F41.9 Active 60544523 Problem Insomnia G47.00 Active 940730939 Problem Chronic obstructive pulmonary disease, unspecified J44.9 Active 74513493 Problem Low back pain M54.5 Active 442396514 Problem Other obesity due to excess calories E66.09 Active [id number] Problem Obstructive sleep apnea syndrome G47.33 Active 07406768 Problem Acute exacerbation of chronic obstructive pulmonary disease (COPD) J44.1 Active 411840236 Problem Chronic obstructive pulmonary disease with (acute) exacerbation J44.1 Active 747011926 Problem Thrombocytopenia D69.6 Active 400229013 Problem Chronic bronchitis, unspecified chronic bronchitis type J42 Active 60566643 Problem Body mass index (BMI) of 50-59.9 in adult Z68.43 Active 912443646 Problem Mild intermittent asthma without complication J45.20 Active 452627617 Problem COPD exacerbation J44.1 Active 369795972 Problem Other emphysema J43.8 Active 23328246 Problem Gastroesophageal reflux disease without esophagitis K21.9 Active 913737349 Problem Dysthymia F34.1 Active 13509963 Problem Essential hypertension I10 Active 93453265 Problem Other chronic pain G89.29 Active 71997701 Problem Status post cholecystectomy Z90.49 Active 521303094 Problem Hypoalbuminemia E88.09 Active 353437063 ALLERGIES No Information ENCOUNTERS Encounter Location Date Diagnosis [facility] [id number], [place] [address] Aug, Encounter for Medicare annual wellness exam Z00.00 [facility] [id number], [place] [address] Aug, Anxiety F41.9 [facility] [id number] [place] [address] Jul, Primary insomnia F51.01 [facility] [id number] [place] [address] Jul, Anxiety F41.9 [facility] [address] [address] Jun, Primary insomnia F51.01 [facility] [id number] [place] [address] 18 Jun, 2018 Chronic bronchitis, unspecified chronic bronchitis type J42 [facility] [id number] [place] [address] 14 Jun, 2018 Anxiety F41.9 [facility] [id number] [place] [address] 12 Jun, 2018 COPD exacerbation J44.1 and BMI 40.0-44.9, adult Z68.41 [facility] [id number] [place] [address] 05 Jun, 2018 Primary insomnia F51.01 [facility] [id number] [place] [address] 02 Jun, 2018 Wheezing R06.2 ; Cough R05 and BMI 40.0-44.9, adult Z68.41 [facility] [id number] [place] [address] Jun, [facility] [id number] [place] [address] May, [facility] [id number] [place] [address] May, Chronic obstructive pulmonary disease, unspecified J44.9 ; Anxiety F41.9 and BMI 40.0-44.9, adult Z68.41 [facility] [id number] [place] [address] May, Primary insomnia F51.01 [facility] [facility] [address] [address] Apr, [facility] [id number] [place] [address] Apr, Pneumonia due to infectious organism, unspecified laterality, unspecified part of lung J18.9 ; Hypoalbuminemia E88.09 ; Status post bariatric surgery Z98.84 and BMI 40.0-44.9, adult Z68.41 [place] [facility] [address] [address] 11 Apr, 2018 Primary insomnia F51.01 [facility] [id number] [place] [address] 28 Mar, 2018 Shortness of breath R06.02 ; Anasarca R60.1 ; Weakness R53.1 ; Status post cholecystectomy Z90.49 and History of pancreatitis Z87.19 [facility] [id number] [place] [address] 13 Mar, 2018 Primary insomnia F51.01 [facility] [id number] [place] [address] Feb, Pain in right knee M25.561 [facility] [address] [address] 24 Feb, 2018 Status post bariatric surgery Z98.84 ; Chronic obstructive pulmonary disease, unspecified J44.9 ; Pain in right knee M25.561 ; Pain in left knee M25.562 ; Other chronic pain G89.29 ; Encounter for immunization Z23 and BMI 45.0-49.9, adult Z68.42 [facility] [id number] [place] [address] 16 Feb, 2018 Primary insomnia F51.01 [facility] [id number] [place] [address] 14 Jan, 2018 Anxiety F41.9 and Primary insomnia F51.01 [place] [address] [address] Dec, Anxiety F41.9 ; Primary insomnia F51.01 ; Low back pain M54.5 ; BMI 50.0-59.9, adult Z68.43 ; Shortness of breath R06.02 and Essential hypertension I10 [address] [address] Dec, Low back pain M54.5 and Primary insomnia F51.[address] [address] Dec, [address] [address] Nov, Acute exacerbation of chronic obstructive pulmonary disease (COPD) J44.1 ; Primary insomnia F51.01 and Low back pain M54.[address] [address] September, BMI 50.0-59.9, adult Z68.43 and Chronic obstructive pulmonary disease, unspecified COPD type J44.[address] [address] Aug, Chronic obstructive pulmonary disease, unspecified J44.9 ; Primary insomnia F51.01 ; Low back pain M54.5 and BMI 50.0-59.9, adult Z68.[address] [address] 16 Aug, 2017 Shortness of breath R06.02 ; Loose stools R19.5 and BMI 50.0-59.9, adult Z68.[address] [address] Aug, Acute renal injury N17.9 and Thrombocytopenia D69.[address] [address] May, [facility] [address] [address] Apr, [facility] [id number] [place] [address] Mar, Acute exacerbation of chronic obstructive pulmonary disease (COPD) J44.1 ; BMI 50.0-59.9, adult Z68.43 and BMI 60.0-69.9, adult Z68.44 [facility] [id number] [place] [address] Mar, [facility] [id number] [place] [address] Feb, Right anterior shoulder pain M25.511 ; Encounter for immunization Z23 ; Other emphysema J43.8 ; Other obesity due to excess calories E66.09 ; Body mass index (BMI) of 50-59.9 in adult Z68.43 and Low back pain M54.5 [facility] [id number] [place] [address] Feb, [facility] [id number] [place] [address] Feb, Low back pain M54.5 [facility] [id number] [place] [address] Jan, [facility] [id number] [place] [address] Jan, Low back pain M54.5 [facility] [id number] [place] [address] Dec, Shortness of breath R06.02 [facility] [id number] [place] [address] Dec, Low back pain M54.5 [facility] [id number] [place] [address] Nov, Low back pain M54.5 [facility] [address] [address] Oct, [facility] [id number] [place] [address] Oct, Low back pain M54.5 [facility] [id number] [place] [address] September, Low back pain M54.5 [facility] [id number] [place] [address] September, Sore throat J02.9 and Strep throat J02.0 [facility] [id number] [place] [address] September, [facility] [id number] [place] [address] Aug, Low back pain M54.5 [facility] [id number] [place] [address] Aug, Medicare welcome exam Z00.00 ; Prostate cancer screening Z12.5 ; Encounter for screening for lung cancer Z12.2 and Lipid screening Z13.220 [facility] [id number] [place] [address] Jul, [facility] [id number] [place] [address] Jul, Low back pain M54.5 [facility] [id number] [place] [address] Jul, [facility] [id number] [place] [address] Jun, [facility] [id number] [place] [address] Jun, Anxiety F41.9 and Low back pain M54.5 [facility] [id number] [place] [address] Jun, Shortness of breath R06.02 [facility] [id number] [place] [address] May, Anxiety F41.9 and Low back pain M54.5 [facility] [id number] [place] [address] May, [facility] [id number] [place] [address] Apr, [facility] [id number] [place] [address] Apr, Chronic obstructive pulmonary disease, unspecified J44.9 [facility] [id number] [place] [address] Apr, [facility] [id number] [place] [address] Apr, Chronic obstructive pulmonary disease, unspecified J44.9 [facility] [id number] [place] [address] Apr, [facility] [id number] [place] [address] Apr, Anxiety F41.9 and Low back pain M54.5 [facility] [id number] [place] [address] Mar, Encounter for immunization Z23 ; Obstructive sleep apnea syndrome G47.33 ; Low back pain M54.5 and Anxiety F41.9 [facility] [id number] [place] [address] Mar, Chronic obstructive pulmonary disease, unspecified J44.9 [facility] [id number] [place] [address] Mar, Chronic obstructive pulmonary disease, unspecified J44.9 [facility] [id number] [place] [address] Mar, Chronic obstructive pulmonary disease, unspecified J44.9 [facility] [address] [facility] [id number] [address] Feb, [facility] [address] [facility] [id number] [place] [address] Feb, [facility] [id number] [place] [address] Feb, Chronic obstructive pulmonary disease, unspecified J44.9 [facility] [id number] [place] [address] Feb, [facility] [id number] [place] [address] Feb, Low back pain M54.5 ; Anxiety F41.9 and Bronchitis J40 [facility] [id number] [place] [address] Jan, [facility] [id number] [place] [address] 15 Jan, 2016 Anxiety F41.9 [facility] [id number] [place] [address] Jan, Chronic obstructive pulmonary disease, unspecified J44.9 [facility] [address], [place] [address] Jan, Low back pain M54.5 [facility] [id number] [place] [address] Dec, Vertigo R42 [facility] [address] [facility] [id number] [place] [address] Dec, [facility] [id number] [place] [address] Nov, [facility] [id number] [place] [address] Nov, Low back pain M54.5 and Anxiety F41.9 [facility] [id number] [place] [address] Nov, [facility] [id number] [place] [address] Nov, [facility] [id number] [place] [address] Oct, Low back pain M54.5 and Anxiety F41.9 [facility] [id number] [place] [address] September, [facility] [id number] [place] [address] Aug, Shortness of breath R06.02 [facility] [id number] [place] [address] Aug, Shortness of breath R06.02 [facility] [id number] [place] [address] Aug, [facility] [id number] [place] [address] Jul, Insomnia G47.00 and Shortness of breath R06.02 [facility] [id number] [place] [address] Jul, [facility] [id number] [place] [address] Jul, [facility] [id number] [place] [address] Jul, Bronchitis J40 [facility] [id number] [place] [address] 16 Jul, 2015 [facility] [id number] [place] [address] 18 Jun, 2015 [facility] [id number] [place] [address] Jun, [facility] [id number], [place] [address] May, [facility] [address], [place] [address] May, [facility] [address], [place] [address] Apr, [facility] [address], [place] [address] Apr, [facility] [address], [place] [address] Mar, [facility] [id number] [place] [address] Mar, [facility] [id number], [place] [address] Mar, [facility] [id number] [place] [address] Feb, [facility] [address], [place] [address] Feb, [facility] [address], [place] [address] Feb, Chronic obstructive pulmonary disease, unspecified J44.9 [facility] [address], [place] [address] Jan, [facility] [address], [place] [address] Jan, [facility] [id number], [place] [address] Dec, [facility] [address], [place] [address] Dec, [facility] [id number], [place] [address] Dec, High risk medication use V58.69 ; Back pain 724.5 ; Insomnia 780.52 ; Screening, lipid V77.91 and Screening for prostate cancer V76.44 [facility] [place] [facility] [address] [id number] [place] [address] Nov, [facility] [place] [facility] [address] [id number] [place] [address] Nov, [facility] [place] [facility] [address] [facility] [id number] [place] [address] Nov, [facility] [place] [facility] [address] [id number] [place] [address] Oct, [facility] [place] [facility] [address] [id number] [place] [address] Oct, [facility] [place] [facility] [address] [facility] [id number] [place] [address] September, [facility] [place] [facility] [address] [facility] [id number] [place] [address] Aug, [facility] [place] [facility] [address] [facility] [id number] [place] [address] Aug, [facility] [place] [facility] [address] [facility] [id number] [place] [address] Jul, [facility] [place] [facility] [address] [facility] [id number] [place] [address] Jul, [facility] [place] [facility] [address] [facility] [id number], [place] [address] Jul, [facility] [place] [facility] [address] [facility] [id number] [place] [address] Jul, [facility] [place] [facility] [address] [facility] [id number] [place] [address] Jul, [facility] [place] [facility] [address] [facility] [id number] [place] [address] Jul, [facility] [place] [facility] [address] [facility] [id number] [place] [address] Jun, [facility] [place] [facility] [address] [id number] [place] [address] 06 Jun, 2014 [facility] [place] [facility] [address] [id number] [place] [address] Jun, [facility] [place] [facility] [address] [id number] [place] [address] Jun, [facility] [place] [facility] [address] [id number] [place] [address] May, [facility] [place] [facility] [address] [id number] [place] [address] May, [facility] [place] [facility] [address] [id number] [place] [address] May, [facility] [place] [facility] [address] [id number] [place] [address] May, [facility] [place] [facility] [address] [id number] [place] [address] May, [facility] [place] [facility] [address] [id number] [place] [address] May, [facility] [place] [facility] [address] [id number] [place] [address] Apr, [facility] [place] [facility] [address] [id number] [place] [address] Apr, [facility] [place] [facility] [address] [id number] [place] [address] Mar, [facility] [place] [facility] [address] [id number] [place] [address] Mar, [facility] [place] [facility] [address] [id number] [place] [address] Mar, [facility] [place] [facility] [address] [id number] [place] [address] Mar, [facility] [place] [facility] [address] [id number] [place] [address] 16 Feb, 2014 [facility] [place] [facility] [address] [id number] [place] [address] 16 Feb, 2014 [facility] [place] [facility] [address] [id number] [place] [address] 13 Feb, 2014 [facility] [place] [facility] [address] [id number] [place] [address] Feb, [facility] [place] [facility] [address] [id number] [place] [address] 23 Jan, 2013 [facility] [place] [facility] [address] [id number] [place] [address] 23 Jan, 2013 [facility] [place] [facility] [address] [id number] [place] [address] 17 Jan, 2013 [facility] [place] [facility] [address] [id number] [place] [address] Jan, 2013 [facility] [place] [facility] [address] [id number] [place] [address] Jan, 2013 [facility] [place] [facility] [address] [id number] [place] [address] Jan, 2013 [facility] [place] [facility] [address] [id number] [place] [address] Jan, 2013 [facility] [place] [facility] [address] [id number] [place] [address] Jan, 2013 [facility] [place] [facility] [address] [id number] [address] Jan, 2013 [facility] [place] [facility] [address] [id number] [place] [address] Jan, 2013 [facility] [place] [facility] [address] [id number] [place] [address] Dec, [facility] [place] [facility] [address] [id number] [place] [address] Dec, [facility] [place] [facility] [address] [id number] [place] [address] Nov, 2013 [facility] [place] [facility] [address] [id number] [place] [address] Nov, 2013 [facility] [place] [facility] [address] [id number] [place] [address] Nov, 2013 [facility] [place] [facility] [address] [id number] [place] [address] Nov, 2013 [facility] [place] [facility] [address] [id number] [place] [address] Nov, 2013 [facility] [place] [facility] [address] [id number] [place] [address] Nov, 2013 [facility] [place] [facility] [address] [id number] [place] [address] Nov, 2013 [facility] [place] [facility] [address] [id number] [place] [address] Nov, 2013 [facility] [place] [facility] [address] [id number] [place] [address] Nov, 2013 [facility] [place] [facility] [address] [id number] [place] [address] Nov, 2013 [facility] [place] [facility] [address] [id number] [place] [address] Nov, 2013 [facility] [place] [facility] [address] [id number] [place] [address] Nov, 2013 [facility] [place] [facility] [address] [id number] [place] [address] Oct, [facility] [place] [facility] [address] [id number] [place] [address] Oct, [facility] [place] [facility] [address] [id number] [place] [address] Oct, [facility] [place] [facility] [address] [id number] [place] [address] Oct, [facility] [place] [facility] [address] [id number] [place] [address] Oct, [facility] [place] [facility] [address] [id number] [place] [address] Oct, [facility] [place] [facility] [address] [id number] [place] [address] Oct, [facility] [place] [facility] [address] [id number] [place] [address] Oct, [facility] [place] [facility] [address] [id number] [place] [address] September, [facility] [place] [facility] [address] [id number] [place] [address] September, [facility] [place] [facility] [address] [id number] [place] [address] September, [facility] [place] [facility] [address] [id number] [place] [address] September, [facility] [place] [facility] [address] [id number] [place] [address] September, [facility] [place] [facility] [address] [id number] [place] [address] September, [facility] [place] [facility] [address] [id number] [place] [address] September, [facility] [place] [facility] [address] [id number] [place] [address] September, [facility] [place] [facility] [address] [id number] [place] [address] September, [facility] [place] [facility] [address] [id number] [place] [address] September, [facility] [place] [facility] [address] [id number] [place] [address] Aug, [facility] [place] [facility] [address] [id number] [place] [address] Aug, [facility] [place] [facility] [address] [id number] [place] [address] 30 Aug, 2013 [facility] [place] [facility] [address] [id number] [place] [address] 30 Aug, 2013 [facility] [place] [facility] [address] [id number] [place] [address] Aug, [facility] [place] [facility] [address] [id number] [place] [address] Aug, [facility] [place] [facility] [address] [id number] [place] [address] Aug, [facility] [place] [facility] [address] [id number] [place] [address] Aug, [facility] [place] [facility] [address] [id number] [place] [address] Aug, [facility] [place] [facility] [address] [id number] [place] [address] Aug, [facility] [place] [facility] [address] [id number] [place] [address] Aug, [facility] [place] [facility] [address] [id number] [place] [address] Aug, [facility] [place] [facility] [address] [id number] [place] [address] Aug, [facility] [place] [facility] [address] [id number] [place] [address] Aug, [facility] [place] [facility] [address] [id number] [place] [address] 24 Jul, 2013 [facility] [place] [facility] [address] [id number] [place] [address] Jul, [facility] [place] [facility] [address] [id number] [place] [address] Jul, [facility] [place] [facility] [address] [id number] [place] [address] Jul, [facility] [place] [facility] [address] [id number] [place] [address] Jun, [facility] [place] [facility] [address] [id number] [place] [address] Jun, [facility] [place] [facility] [address] [id number] [place] [address] Jun, [facility] [place] [facility] [address] [id number] [place] [address] Jun, [facility] [place] [facility] [address] [id number] [place] [address] Jun, [facility] [place] [facility] [address] [id number] [place] [address] Jun, [facility] [place] [facility] [address] [id number] [place] [address] Jun, [facility] [place] [facility] [address] [id number] [place] [address] May, [facility] [place] [facility] [address] [id number] [place] [address] May, [facility] [place] [facility] [address] [id number] [place] [address] May, [facility] [place] [facility] [address] [id number] [place] [address] May, [facility] [place] [facility] [address] [id number] [place] [address] May, [facility] [place] [facility] [address] [id number] [place] [address] May, [facility] [place] [facility] [address] [id number] [place] [address] Apr, [facility] [place] [facility] [address] [id number] [address] Apr, [facility] [place] [facility] [address] [id number] [place] [address] Mar, [facility] [place] [facility] [address] [id number] [place] [address] Mar, [facility] [place] [facility] [address] [id number] [place] [address] Mar, [facility] [place] [facility] [address] [id number] [place] [address] Mar, [facility] [place] [facility] [address] [id number] [place] [address] Mar, [facility] [place] [facility] [address] [id number] [place] [address] Mar, [facility] [place] [facility] [address] [id number] [place] [address] Feb, [facility] [place] [facility] [address] [id number] [place] [address] Feb, [facility] [place] [facility] [address] [id number] [place] [address] Feb, [facility] [place] [facility] [address] [id number] [place] [address] Feb, [facility] [place] [facility] [address] [id number], [place] [address] Feb, [facility] [place] [facility] [address] [id number], [place] [address] Jan, [facility] [place] [facility] [address] [id number] [place] [address] Dec, [facility] [place] [facility] [address] [id number], [place] [address] Dec, [facility] [place] [facility] [address] [id number] [place] [address] Oct, [facility] [place] [facility] [address] [id number] [place] [address] Oct, [facility] [address] [id number] [place] [address] Oct, [facility] [address] [id number] [place] [address] September, [facility] [address] [id number] [place] [address] September, [facility] [address] [id number] [place] [address] Aug, [facility] [address] [id number] [place] [address] Aug, [facility] [address] [id number] [place] [address] Jul, [facility] [address] [id number] [place] [address] May, [facility] [address] [id number] [place] [address] May, [facility] [address] [id number] [place] [address] Apr, [facility] [address] [id number] [place] [address] Apr, [facility] [address] [id number] [place] [address] Apr, [facility] [address] [id number] [place] [address] Apr, [facility] [address] [id number] [place] [address] Apr, [facility] [address] [id number] [place] [address] Apr, [facility] [address] [id number] [place] [address] Apr, [facility] [place] [facility] [address] [id number] [place] [address] Apr, [facility] [place] [facility] [address] [id number] [place] [address] Mar, [facility] [place] [facility] [address] [id number] [place] [address] Mar, [facility] [place] [facility] [address] [id number] [place] [address] Feb, [facility] [place] [facility] [address] [id number] [place] [address] Feb, [facility] [place] [facility] [address] [id number] [place] [address] Feb, [facility] [place] [facility] [address] [id number] [place] [address] Jan, [facility] [place] [facility] [address] [id number] [place] [address] Jan, [facility] [place] [facility] [address] [id number] [place] [address] Dec, [facility] [place] [facility] [address] [id number] [place] [address] Dec, [facility] [place] [facility] [address] [id number] [place] [address] Dec, [facility] [place] [facility] [address] [id number] [place] [address] Dec, [facility] [place] [facility] [address] [id number] [place] [address] Nov, [facility] [place] [facility] [address] [id number] [place] [address] Nov, [facility] [place] [facility] [address] [id number] [place] [address] Nov, [facility] [place] [facility] [address] [id number] [place] [address] September, [facility] [address] [id number] [place] [address] September, [facility] [place] [facility] [address] [id number] [place] [address] September, [facility] [place] [facility] [address] [id number] [place] [address] Aug, [facility] [place] [facility] [address] [id number] [place] [address] Jun, [facility] [place] [facility] [address] [id number] [place] [address] May, [facility] [place] [facility] [address] [id number] [place] [address] Apr, [facility] [place] [facility] [address] [id number] [place] [address] Apr, [facility] [place] [facility] [address] [id number] [place] [address] Apr, [facility] [place] [facility] [address] [id number] [place] [address] Mar, [facility] [place] [facility] [address] [id number] [place] [address] Mar, [facility] [place] [facility] [address] [id number] [place] [address] Feb, [facility] [place] [facility] [address] [id number] [place] [address] Feb, [facility] [place] [facility] [address] [id number] [place] [address] Feb, [facility] [place] [facility] [address] [id number] [place] [address] Feb, [facility] [place] [facility] [address] [id number] [place] [address] Nov, [facility] [place] [facility] [address] [facility] [id number] [place] [address] 13 Oct, 2010 IMMUNIZATIONS No Known Immunizations SOCIAL HISTORY Never Assessed REASON FOR VISIT EMR-[facility] [place], [place] PLAN OF CARE VITAL SIGNS MEDICATIONS Unknown [...] for surgery only Hospitalization History sepsis at [facility] 08/2017 Hospitalization History pancreatitis 03/2018
--- OUTSIDE RECORDS SUMMARY | 2018-10-24 13:39 | XMS REPORT ---
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 Name Role Phone Migration, Doctor Unavailable Unavailable PROBLEMS Type Condition ICD9-CM Code BRY26-VG Code Onset Dates Condition Status SNOMED Code Problem Shortness of breath R06.02 Active 887766024 Problem Primary insomnia F51.01 Active 3722269 Problem Anxiety F41.9 Active 63043029 Problem Insomnia G47.00 Active 594881043 Problem Chronic obstructive pulmonary disease, unspecified J44.9 Active 07150229 Problem Low back pain M54.5 Active 280672358 Problem Other obesity due to excess calories E66.09 Active 08925419411488 Problem Obstructive sleep apnea syndrome G47.33 Active 92907917 Problem Acute exacerbation of chronic obstructive pulmonary disease (COPD) J44.1 Active 936887558 Problem Chronic obstructive pulmonary disease with (acute) exacerbation J44.1 Active 845992218 Problem Thrombocytopenia D69.6 Active 827753524 Problem Chronic bronchitis, unspecified chronic bronchitis type J42 Active 59234285 Problem Body mass index (BMI) of 50-59.9 in adult Z68.43 Active 725182616 Problem Mild intermittent asthma without complication J45.20 Active 360336407 Problem COPD exacerbation J44.1 Active 890706379 Problem Other emphysema J43.8 Active 37905964 Problem Gastroesophageal reflux disease without esophagitis K21.9 Active 734578179 Problem Dysthymia F34.1 Active 97272219 Problem Essential hypertension I10 Active 89747265 Problem Other chronic pain G89.29 Active 19793689 Problem Status post cholecystectomy Z90.49 Active 194339994 Problem Hypoalbuminemia E88.09 Active 291746039 ALLERGIES No Information ENCOUNTERS Encounter Location Date Diagnosis [facility] [id number] [address] Aug, Encounter for Medicare annual wellness exam Z00.00 [facility] [id number] [address] Aug, Anxiety F41.9 [facility] [id number] [place] [address] Jul, Primary insomnia F51.01 [facility] [id number] [place] [address] Jul, Anxiety F41.9 [facility] [address] [address] Jun, Primary insomnia F51.01 [facility] [id number] [place] [address] 18 Jun, 2018 Chronic bronchitis, unspecified chronic bronchitis type J42 [place] [id number] [place] [address] 14 Jun, 2018 Anxiety F41.9 [facility] [id number] [place] [address] 12 Jun, 2018 COPD exacerbation J44.1 and BMI 40.0-44.9, adult Z68.41 [facility] [id number] [place] [address] 05 Jun, 2018 Primary insomnia F51.01 [facility] [id number] [place] [address] 02 Jun, 2018 Wheezing R06.2 ; Cough R05 and BMI 40.0-44.9, adult Z68.41 [facility] [id number] [place] [address] Jun, [facility] [id number] [place] [address] May, [facility] [id number] [place] [address] May, Chronic obstructive pulmonary disease, unspecified J44.9 ; Anxiety F41.9 and BMI 40.0-44.9, adult Z68.41 [facility] [id number] [place] [address] May, Primary insomnia F51.01 [place] [address] [address] Apr, [place] [id number] [place] [address] Apr, Pneumonia due to infectious organism, unspecified laterality, unspecified part of lung J18.9 ; Hypoalbuminemia E88.09 ; Status post bariatric surgery Z98.84 and BMI 40.0-44.9, adult Z68.41 [address] [address] [address] 11 Apr, 2018 Primary insomnia F51.01 [place] [id number] [place] [address] 28 Mar, 2018 Shortness of breath R06.02 ; Anasarca R60.1 ; Weakness R53.1 ; Status post cholecystectomy Z90.49 and History of pancreatitis Z87.19 [place] [id number] [place] [address] 13 Mar, 2018 Primary insomnia F51.01 [place] [id number] [place] [address] Feb, Pain in right knee M25.561 [place] [address] [address] 24 Feb, 2018 Status post bariatric surgery Z98.84 ; Chronic obstructive pulmonary disease, unspecified J44.9 ; Pain in right knee M25.561 ; Pain in left knee M25.562 ; Other chronic pain G89.29 ; Encounter for immunization Z23 and BMI 45.0-49.9, adult Z68.42 [place] [id number] [place] [address] 16 Feb, 2018 Primary insomnia F51.01 [place] [id number] [place] [address] 14 Jan, 2018 Anxiety F41.9 and Primary insomnia F51.01 [place] [address] [address] Dec, Anxiety F41.9 ; Primary insomnia F51.01 ; Low back pain M54.5 ; BMI 50.0-59.9, adult Z68.43 ; Shortness of breath R06.02 and Essential hypertension I10 [address] [address] Dec, Low back pain M54.5 and Primary insomnia F51.[address] [address] Dec, [address] [address] Nov, Acute exacerbation of chronic obstructive pulmonary disease (COPD) J44.1 ; Primary insomnia F51.01 and Low back pain M54.[address] [address] September, BMI 50.0-59.9, adult Z68.43 and Chronic obstructive pulmonary disease, unspecified COPD type J44.[address] [address] Aug, Chronic obstructive pulmonary disease, unspecified J44.9 ; Primary insomnia F51.01 ; Low back pain M54.5 and BMI 50.0-59.9, adult Z68.[address] [address] 16 Aug, 2017 Shortness of breath R06.02 ; Loose stools R19.5 and BMI 50.0-59.9, adult Z68.[address] [address] Aug, Acute renal injury N17.9 and Thrombocytopenia D69.[address] [address] May, [facility] [address] [address] Apr, [facility] [id number] [place] [address] Mar, Acute exacerbation of chronic obstructive pulmonary disease (COPD) J44.1 ; BMI 50.0-59.9, adult Z68.43 and BMI 60.0-69.9, adult Z68.44 [facility] [id number] [place] [address] Mar, [facility] [id number] [place] [address] Feb, Right anterior shoulder pain M25.511 ; Encounter for immunization Z23 ; Other emphysema J43.8 ; Other obesity due to excess calories E66.09 ; Body mass index (BMI) of 50-59.9 in adult Z68.43 and Low back pain M54.5 [facility] [id number] [place] [address] Feb, [facility] [id number] [place] [address] Feb, Low back pain M54.5 [facility] [id number] [place] [address] Jan, [facility] [id number] [place] [address] Jan, Low back pain M54.5 [facility] [id number] [place] [address] Dec, Shortness of breath R06.02 [facility] [id number] [place] [address] Dec, Low back pain M54.5 [facility] [id number] [place] [address] Nov, Low back pain M54.5 [facility] [address] [address] Oct, [facility] [id number] [place] [address] Oct, Low back pain M54.5 [facility] [address] [place] [address] September, Low back pain M54.5 [facility] [address] [place] [address] September, Sore throat J02.9 and Strep throat J02.0 [facility] [id number] [place] [address] September, [facility] [id number] [place] [address] Aug, Low back pain M54.5 [facility] [id number] [place] [address] Aug, Medicare welcome exam Z00.00 ; Prostate cancer screening Z12.5 ; Encounter for screening for lung cancer Z12.2 and Lipid screening Z13.220 [facility] [address] [place] [address] Jul, [facility] [address] [place] [address] Jul, Low back pain M54.5 [facility] [address] [place] [address] Jul, [facility] [address] [place] [address] Jun, [facility] [id number] [place] [address] Jun, Anxiety F41.9 and Low back pain M54.5 [facility] [id number] [place] [address] Jun, Shortness of breath R06.02 [facility] [id number] [place] [address] May, Anxiety F41.9 and Low back pain M54.5 [facility] [id number] [place] [address] May, [facility] [id number] [place] [address] Apr, [facility] [id number] [place] [address] Apr, Chronic obstructive pulmonary disease, unspecified J44.9 [facility] [id number] [place] [address] Apr, [facility] [id number] [place] [address] Apr, Chronic obstructive pulmonary disease, unspecified J44.9 [facility] [id number] [place] [address] Apr, [facility] [id number] [place] [address] Apr, Anxiety F41.9 and Low back pain M54.5 [facility] [id number] [place] [address] Mar, Encounter for immunization Z23 ; Obstructive sleep apnea syndrome G47.33 ; Low back pain M54.5 and Anxiety F41.9 [facility] [address] [place] [address] Mar, Chronic obstructive pulmonary disease, unspecified J44.9 [facility] [id number] [place] [address] Mar, Chronic obstructive pulmonary disease, unspecified J44.9 [facility] [id number] [place] [address] Mar, Chronic obstructive pulmonary disease, unspecified J44.9 [facility] [address] [facility] [id number] [address] Feb, [facility] [address] [facility] [id number] [place] [address] Feb, [facility] [address] [place] [address] Feb, Chronic obstructive pulmonary disease, unspecified J44.9 [facility] [id number] [place] [address] Feb, [facility] [id number] [place] [address] Feb, Low back pain M54.5 ; Anxiety F41.9 and Bronchitis J40 [facility] [id number] [place] [address] Jan, [facility] [id number] [place] [address] 15 Jan, 2016 Anxiety F41.9 [facility] [id number] [place] [address] Jan, Chronic obstructive pulmonary disease, unspecified J44.9 [facility] [address] [address] Jan, Low back pain M54.5 [facility] [address] [place] [address] Dec, Vertigo R42 [facility] [address] [facility] [id number] [place] [address] Dec, [facility] [id number] [place] [address] Nov, [facility] [id number] [place] [address] Nov, Low back pain M54.5 and Anxiety F41.9 [facility] [id number] [place] [address] Nov, [facility] [id number] [place] [address] Nov, [facility] [id number] [place] [address] Oct, Low back pain M54.5 and Anxiety F41.9 [facility] [id number] [place] [address] September, [facility] [id number] [place] [address] Aug, Shortness of breath R06.02 [facility] [id number] [place] [address] Aug, Shortness of breath R06.02 [facility] [id number] [place] [address] Aug, [facility] [id number] [place] [address] Jul, Insomnia G47.00 and Shortness of breath R06.02 [facility] [id number] [place] [address] Jul, [facility] [id number] [place] [address] Jul, [facility] [id number] [place] [address] Jul, Bronchitis J40 [facility] [id number] [place] [address] 16 Jul, 2015 [facility] [id number] [place] [address] 18 Jun, 2015 [facility] [address] [place] [address] Jun, [facility] [id number] [address] May, [facility] [address] [address] May, [facility] [address] [address] Apr, [facility] [address] [address] Apr, [facility] [address] [address] Mar, [facility] [address] [place] [address] Mar, [facility] [id number] [address] Mar, [facility] [address] [place] [address] Feb, [facility] [address] [address] Feb, [facility] [address] [address] Feb, Chronic obstructive pulmonary disease, unspecified J44.9 [facility] [address] [address] Jan, [facility] [address] [address] Jan, [facility] [id number] [address] Dec, [facility] [address] [address] Dec, [facility] [id number] [address] Dec, High risk medication use V58.69 ; Back pain 724.5 ; Insomnia 780.52 ; Screening, lipid V77.91 and Screening for prostate cancer V76.44 [facility] [place] [facility] [address] [id number] [place] [address] Nov, [facility] [place] [facility] [address] [id number] [place] [address] Nov, [facility] [place] [facility] [address] [facility] [id number] [place] [address] Nov, [facility] [place] [facility] [address] [id number] [place] [address] Oct, [facility] [place] [facility] [address] [id number] [place] [address] Oct, [facility] [place] [facility] [address] [facility] [id number] [place] [address] September, [facility] [place] [facility] [address] [facility] [id number] [place] [address] Aug, [facility] [place] [facility] [address] [facility] [id number] [place] [address] Aug, [facility] [place] [facility] [address] [facility] [id number] [place] [address] Jul, [facility] [place] [facility] [address] [facility] [id number] [place] [address] Jul, [facility] [place] [facility] [address] [facility] [id number] [place] [address] Jul, [facility] [place] [facility] [address] [facility] [id number] [place] [address] Jul, [facility] [place] [facility] [address] [facility] [id number] [place] [address] Jul, [facility] [place] [facility] [address] [facility] [id number] [place] [address] Jul, [facility] [place] [facility] [address] [facility] [id number] [place] [address] Jun, [facility] [place] [facility] [address] [id number] [place] [address] 06 Jun, 2014 [facility] [place] [facility] [address] [id number] [place] [address] Jun, [facility] [place] [facility] [address] [id number] [place] [address] Jun, [facility] [place] [facility] [address] [id number] [place] [address] May, [facility] [place] [facility] [address] [id number] [place] [address] May, [facility] [place] [facility] [address] [id number] [place] [address] May, [facility] [place] [facility] [address] [id number] [place] [address] May, [facility] [place] [facility] [address] [id number] [place] [address] May, [facility] [place] [facility] [address] [id number] [place] [address] May, [facility] [place] [facility] [address] [id number] [place] [address] Apr, [facility] [place] [facility] [address] [id number] [place] [address] Apr, [facility] [place] [facility] [address] [id number] [place] [address] Mar, [facility] [place] [facility] [address] [id number] [place] [address] Mar, [facility] [place] [facility] [address] [id number] [place] [address] Mar, [facility] [place] [facility] [address] [id number] [place] [address] Mar, [facility] [place] [facility] [address] [id number] [place] [address] 16 Feb, 2014 [facility] [place] [facility] [address] [id number] [place] [address] 16 Feb, 2014 [facility] [place] [facility] [address] [id number] [place] [address] 13 Feb, 2014 [facility] [place] [facility] [address] [id number] [place] [address] Feb, [facility] [place] [facility] [address] [id number] [place] [address] 23 Jan, 2013 [facility] [place] [facility] [address] [id number] [place] [address] 23 Jan, 2013 [facility] [place] [facility] [address] [id number] [place] [address] 17 Jan, 2013 [facility] [place] [facility] [address] [id number] [place] [address] Jan, 2013 [facility] [place] [facility] [address] [id number] [place] [address] Jan, 2013 [facility] [place] [facility] [address] [id number] [place] [address] Jan, 2013 [facility] [place] [facility] [address] [id number] [place] [address] Jan, 2013 [facility] [place] [facility] [address] [id number] [place] [address] Jan, 2013 [facility] [place] [facility] [address] [id number] [place] [address] Jan, 2013 [facility] [place] [facility] [address] [id number] [place] [address] Jan, 2013 [facility] [place] [facility] [address] [id number] [place] [address] Dec, [facility] [place] [facility] [address] [id number] [place] [address] Dec, [facility] [place] [facility] [address] [id number] [place] [address] Nov, 2013 [facility] [place] [facility] [address] [id number] [place] [address] Nov, 2013 [facility] [place] [facility] [address] [id number] [place] [address] Nov, 2013 [facility] [place] [facility] [address] [id number] [place] [address] Nov, 2013 [facility] [place] [facility] [address] [id number] [place] [address] Nov, 2013 [facility] [place] [facility] [address] [id number] [place] [address] Nov, 2013 [facility] [place] [facility] [address] [id number] [place] [address] Nov, 2013 [facility] [place] [facility] [address] [id number] [place] [address] Nov, 2013 [facility] [place] [facility] [address] [id number] [place] [address] Nov, 2013 [facility] [place] [facility] [address] [id number] [place] [address] Nov, 2013 [facility] [place] [facility] [address] [id number] [place] [address] Nov, 2013 [facility] [place] [facility] [address] [id number] [place] [address] Nov, 2013 [facility] [place] [facility] [address] [id number] [place] [address] Oct, [facility] [place] [facility] [address] [id number] [place] [address] Oct, [facility] [place] [facility] [address] [id number] [place] [address] Oct, [facility] [place] [facility] [address] [id number] [place] [address] Oct, [facility] [place] [facility] [address] [id number] [place] [address] Oct, [facility] [place] [facility] [address] [id number] [place] [address] Oct, [facility] [place] [facility] [address] [id number] [place] [address] Oct, [facility] [place] [facility] [address] [id number] [place] [address] Oct, [facility] [place] [facility] [address] [id number] [place] [address] September, [facility] [place] [facility] [address] [id number] [place] [address] September, [facility] [place] [facility] [address] [id number] [place] [address] September, [facility] [place] [facility] [address] [id number] [place] [address] September, [facility] [place] [facility] [address] [id number] [place] [address] September, [facility] [place] [facility] [address] [id number] [place] [address] September, [facility] [place] [facility] [address] [id number] [place] [address] September, [facility] [place] [facility] [address] [id number] [place] [address] September, [facility] [place] [facility] [address] [id number] [place] [address] September, [facility] [place] [facility] [address] [id number] [place] [address] September, [facility] [place] [facility] [address] [id number] [place] [address] Aug, [facility] [place] [facility] [address] [id number] [place] [address] Aug, [facility] [place] [facility] [address] [id number] [place] [address] 30 Aug, 2013 [facility] [place] [facility] [address] [id number] [place] [address] 30 Aug, 2013 [facility] [place] [facility] [address] [id number] [place] [address] Aug, [facility] [place] [facility] [address] [id number] [place] [address] Aug, [facility] [place] [facility] [address] [id number] [place] [address] Aug, [facility] [place] [facility] [address] [id number] [place] [address] Aug, [facility] [place] [facility] [address] [id number] [place] [address] Aug, [facility] [place] [facility] [address] [id number] [place] [address] Aug, [facility] [place] [facility] [address] [id number] [place] [address] Aug, [facility] [place] [facility] [address] [id number] [place] [address] Aug, [facility] [place] [facility] [address] [id number] [place] [address] Aug, [facility] [place] [facility] [address] [id number] [place] [address] Aug, [facility] [place] [facility] [address] [id number] [place] [address] 24 Jul, 2013 [facility] [place] [facility] [address] [id number] [place] [address] Jul, [facility] [place] [facility] [address] [id number] [place] [address] Jul, [facility] [place] [facility] [address] [id number] [place] [address] Jul, [facility] [place] [facility] [address] [id number] [place] [address] Jun, [facility] [place] [facility] [address] [id number] [place] [address] Jun, [facility] [place] [facility] [address] [id number] [place] [address] Jun, [facility] [place] [facility] [address] [id number] [place] [address] Jun, [facility] [place] [facility] [address] [id number] [place] [address] Jun, [facility] [place] [facility] [address] [id number] [place] [address] Jun, [facility] [place] [facility] [address] [id number] [place] [address] Jun, [facility] [place] [facility] [address] [id number] [place] [address] May, [facility] [place] [facility] [address] [id number] [place] [address] May, [facility] [place] [facility] [address] [id number] [place] [address] May, [facility] [place] [facility] [address] [id number] [place] [address] May, [facility] [place] [facility] [address] [id number] [place] [address] May, [facility] [place] [facility] [address] [id number] [place] [address] May, [facility] [place] [facility] [address] [id number] [place] [address] Apr, [facility] [place] [facility] [address] [id number] [place] [address] Apr, [facility] [place] [facility] [address] [id number] [place] [address] Mar, [facility] [place] [facility] [address] [id number] [place] [address] Mar, [facility] [place] [facility] [address] [id number] [place] [address] Mar, [facility] [place] [facility] [address] [id number] [place] [address] Mar, [facility] [place] [facility] [address] [id number] [place] [address] Mar, [facility] [place] [facility] [address] [id number] [place] [address] Mar, [facility] [place] [facility] [address] [id number] [place] [address] Feb, [facility] [place] [facility] [address] [id number] [place] [address] Feb, [facility] [place] [facility] [address] [id number] [place] [address] Feb, [facility] [place] [facility] [address] [id number] [place] [address] Feb, [facility] [place] [facility] [address] [id number] [place] [address] Feb, [facility] [place] [facility] [address] [id number] [place] [address] Jan, [facility] [place] [facility] [address] [id number] [place] [address] Dec, [facility] [place] [facility] [address] [id number] [place] [address] Dec, [facility] [place] [facility] [address] [id number] [place] [address] Oct, [facility] [place] [facility] [address] [id number] [place] [address] Oct, [facility] [address] [id number] [place] [address] Oct, [facility] [address] [id number] [place] [address] September, [facility] [address] [id number] [place] [address] September, [facility] [address] [id number] [place] [address] Aug, [facility] [address] [id number] [place] [address] Aug, [facility] [address] [id number] [place] [address] Jul, [facility] [address] [id number] [place] [address] May, [facility] [address] [id number] [place] [address] May, [facility] [address] [id number] [place] [address] Apr, [facility] [address] [id number] [place] [address] Apr, [facility] [address] [id number] [place] [address] Apr, [facility] [address] [id number] [place] [address] Apr, [facility] [address] [id number] [place] [address] Apr, [facility] [address] [id number] [place] [address] Apr, [facility] [address] [id number] [place] [address] Apr, [facility] [place] [facility] [address] [id number] [place] [address] Apr, [facility] [place] [facility] [address] [id number] [place] [address] Mar, [facility] [place] [facility] [address] [id number] [place] [address] Mar, [facility] [place] [facility] [address] [id number] [place] [address] Feb, [facility] [place] [facility] [address] [id number] [place] [address] Feb, [facility] [place] [facility] [address] [id number] [place] [address] Feb, [facility] [place] [facility] [address] [id number] [place] [address] Jan, [facility] [place] [facility] [address] [id number] [place] [address] Jan, [facility] [place] [facility] [address] [id number] [place] [address] Dec, [facility] [place] [facility] [address] [id number] [place] [address] Dec, [facility] [place] [facility] [address] [id number] [place] [address] Dec, [facility] [place] [facility] [address] [id number] [place] [address] Dec, [facility] [place] [facility] [address] [id number] [place] [address] Nov, [facility] [place] [facility] [address] [id number] [place] [address] Nov, [facility] [place] [facility] [address] [id number] [place] [address] Nov, [facility] [place] [facility] [address] [id number] [place] [address] September, [facility] [address] [id number] [place] [address] September, [facility] [place] [facility] [address] [id number] [place] [address] September, [facility] [place] [facility] [address] [id number] [place] [address] Aug, [facility] [place] [facility] [address] [id number] [place] [address] Jun, [facility] [place] [facility] [address] [id number] [place] [address] May, [facility] [place] [facility] [address] [id number] [place] [address] Apr, [facility] [place] [facility] [address] [id number] [place] [address] Apr, [facility] [place] [facility] [address] [id number] [place] [address] Apr, [facility] [place] [facility] [address] [id number] [place] [address] Mar, [facility] [place] [facility] [address] [id number] [place] [address] Mar, [facility] [place] [facility] [address] [id number] [place] [address] Feb, [facility] [place] [facility] [address] [id number] [place] [address] Feb, [facility] [place] [facility] [address] [id number] [place] [address] Feb, [facility] [place] [facility] [address] [id number] [place] [address] Feb, [facility] [place] [facility] [address] [id number] [place] [address] Nov, [facility] [place] [facility] [address] [facility] [id number] [place] [address] 13 Oct, 2010 IMMUNIZATIONS No Known Immunizations SOCIAL HISTORY Never Assessed REASON FOR VISIT EMR-[facility] PLAN OF CARE VITAL SIGNS [...] for surgery only Hospitalization History sepsis at [facility] 08/2017 Hospitalization History pancreatitis 03/2018
--- OUTSIDE RECORDS SUMMARY | 2018-10-24 13:40 | XMS REPORT ---
Author Author Migration, Doctor Organization [facility] Address Unknown Phone Unavailable Care Team Providers Care Director Phone Name Role Phone Migration, Doctor Unavailable Unavailable PROBLEMS Type Condition ICD9-CM Code [id number] Code Onset Dates Condition Status SNOMED Code Problem Shortness of breath R06.02 Active 153532829 Problem Primary insomnia F51.01 Active 3187063 Problem Anxiety F41.9 Active 07106617 Problem Insomnia G47.00 Active 169674299 Problem Chronic obstructive pulmonary disease, unspecified J44.9 Active 27674679 Problem Low back pain M54.5 Active 612741065 Problem Other obesity due to excess calories E66.09 Active 02442811131116 Problem Obstructive sleep apnea syndrome G47.33 Active 80420511 Problem Acute exacerbation of chronic obstructive pulmonary disease (COPD) J44.1 Active 966960176 Problem Chronic obstructive pulmonary disease with (acute) exacerbation J44.1 Active 620741231 Problem Thrombocytopenia D69.6 Active 475747896 Problem Chronic bronchitis, unspecified chronic bronchitis type J42 Active 02105335 Problem Body mass index (BMI) of 50-59.9 in adult Z68.43 Active 142247690 Problem Mild intermittent asthma without complication J45.20 Active 290843649 Problem COPD exacerbation J44.1 Active 322165120 Problem Other emphysema J43.8 Active 99014900 Problem Gastroesophageal reflux disease without esophagitis K21.9 Active 095457105 Problem Dysthymia F34.1 Active 67715664 Problem Essential hypertension I10 Active 75802392 Problem Other chronic pain G89.29 Active 40260679 Problem Status post cholecystectomy Z90.49 Active 105973298 Problem Hypoalbuminemia E88.09 Active 847055536 ALLERGIES No Information ENCOUNTERS Encounter Location Date Diagnosis [facility] [id number] [address] Aug, Encounter for Medicare annual wellness exam Z00.00 [facility] [id number] [address] Jul, Primary insomnia F51.01 [facility] [id number] [place] [address] Jul, Anxiety F41.9 [facility] [id number] [place] [address] 28 Jun, 2018 Primary insomnia F51.01 [facility] [id number] [place] [address] 18 Jun, 2018 Chronic bronchitis, unspecified chronic bronchitis type J42 [facility] [id number] [place] [address] 14 Jun, 2018 Anxiety F41.9 [facility] [id number] [place] [address] 12 Jun, 2018 COPD exacerbation J44.1 and BMI 40.0-44.9, adult Z68.41 [facility] [facility] [id number] [place] [address] 05 Jun, 2018 Primary insomnia F51.01 [facility] [id number] [place] [address] 02 Jun, 2018 Wheezing R06.2 ; Cough R05 and BMI 40.0-44.9, adult Z68.41 [place] [id number] [place] [address] Jun, [facility] [id number] [place] [address] May, [facility] [facility] [id number] [place] [address] May, Chronic obstructive pulmonary disease, unspecified J44.9 ; Anxiety F41.9 and BMI 40.0-44.9, adult Z68.41 [place] [id number] [place] [address] May, Primary insomnia F51.01 [facility] [id number] [place] [address] Apr, [place] [address] [address] Apr, Pneumonia due to infectious organism, unspecified laterality, unspecified part of lung J18.9 ; Hypoalbuminemia E88.09 ; Status post bariatric surgery Z98.84 and BMI 40.0-44.9, adult Z68.41 [place] [address] [address] 11 Apr, 2018 Primary insomnia F51.[address] [address] Mar, Shortness of breath R06.02 ; Anasarca R60.1 ; Weakness R53.1 ; Status post cholecystectomy Z90.49 and History of pancreatitis Z87.[address] [address] 13 Mar, 2018 Primary insomnia F51.01 [place] [address] [address] Feb, Pain in right knee M25.[address] [address] Feb, Status post bariatric surgery Z98.84 ; Chronic obstructive pulmonary disease, unspecified J44.9 ; Pain in right knee M25.561 ; Pain in left knee M25.562 ; Other chronic pain G89.29 ; Encounter for immunization Z23 and BMI 45.0-49.9, adult Z68.42 [place] [address] [address] Feb, Primary insomnia F51.[address] [address] Jan, Anxiety F41.9 and Primary insomnia F51.[address] [address] Dec, Anxiety F41.9 ; Primary insomnia F51.01 ; Low back pain M54.5 ; BMI 50.0-59.9, adult Z68.43 ; Shortness of breath R06.02 and Essential hypertension I10 [place] [id number] [place] [address] Dec, Low back pain M54.5 and Primary insomnia F51.01 [place] [address] [address] Dec, [place] [address] [address] Nov, Acute exacerbation of chronic obstructive pulmonary disease (COPD) J44.1 ; Primary insomnia F51.01 and Low back pain M54.5 [address] [address] [address] [address] September, BMI 50.0-59.9, adult Z68.43 and Chronic obstructive pulmonary disease, unspecified COPD type J44.9 [place] [address] [address] Aug, Chronic obstructive pulmonary disease, unspecified J44.9 ; Primary insomnia F51.01 ; Low back pain M54.5 and BMI 50.0-59.9, adult Z68.43 [place] [id number] [place] [address] 16 Aug, 2017 Shortness of breath R06.02 ; Loose stools R19.5 and BMI 50.0-59.9, adult Z68.43 [place] [address] [address] Aug, Acute renal injury N17.9 and Thrombocytopenia D69.[address] [address] May, [place] [address] [address] Apr, [facility] [address] [address] Mar, Acute exacerbation of chronic obstructive pulmonary disease (COPD) J44.1 ; BMI 50.0-59.9, adult Z68.43 and BMI 60.0-69.9, adult Z68.44 [facility] [address] [place] [address] Mar, [facility] [id number] [place] [address] Feb, Right anterior shoulder pain M25.511 ; Encounter for immunization Z23 ; Other emphysema J43.8 ; Other obesity due to excess calories E66.09 ; Body mass index (BMI) of 50-59.9 in adult Z68.43 and Low back pain M54.5 [facility] [id number] [place] [address] Feb, [facility] [id number] [place] [address] Feb, Low back pain M54.5 [facility] [id number] [place] [address] Jan, [facility] [id number] [place] [address] Jan, Low back pain M54.5 [facility] [address] [place] [address] Dec, Shortness of breath R06.02 [facility] [id number] [place] [address] Dec, Low back pain M54.5 [facility] [id number] [place] [address] Nov, Low back pain M54.5 [facility] [address] [address] Oct, [facility] [id number] [address] Oct, Low back pain M54.5 [facility] [id number] [place] [address] September, Low back pain M54.5 [facility] [address] [place] [address] September, Sore throat J02.9 and Strep throat J02.0 [facility] [id number] [place] [address] September, [facility] [id number] [place] [address] Aug, Low back pain M54.5 [facility] [id number] [place] [address] Aug, Medicare welcome exam Z00.00 ; Prostate cancer screening Z12.5 ; Encounter for screening for lung cancer Z12.2 and Lipid screening Z13.220 [facility] [address] [place] [address] Jul, [facility] [id number] [place] [address] Jul, Low back pain M54.5 [facility] [address] [address] Jul, [facility] [id number] [place] [address] Jun, [facility] [address] [place] [address] Jun, Anxiety F41.9 and Low back pain M54.5 [facility] [address] [address] 15 Jun, 2016 Shortness of breath R06.02 [facility] [id number] [place] [address] May, Anxiety F41.9 and Low back pain M54.5 [facility] [id number] [place] [address] May, [facility] [id number] [place] [address] Apr, [facility] [id number] [place] [address] Apr, Chronic obstructive pulmonary disease, unspecified J44.9 [facility] [id number] [place] [address] Apr, [facility] [id number] [place] [address] Apr, Chronic obstructive pulmonary disease, unspecified J44.9 [facility] [id number] [place] [address] Apr, [facility] [id number] [place] [address] Apr, Anxiety F41.9 and Low back pain M54.5 [facility] [id number] [place] [address] Mar, Encounter for immunization Z23 ; Obstructive sleep apnea syndrome G47.33 ; Low back pain M54.5 and Anxiety F41.9 [facility] [id number] [place] [address] Mar, Chronic obstructive pulmonary disease, unspecified J44.9 [facility] [id number] [place] [address] Mar, Chronic obstructive pulmonary disease, unspecified J44.9 [facility] [id number] [place] [address] Mar, Chronic obstructive pulmonary disease, unspecified J44.9 [facility] [id number] [place] [address] Feb, [facility] [address] [facility] [id number] [place] [address] Feb, [facility] [id number] [place] [address] Feb, Chronic obstructive pulmonary disease, unspecified J44.9 [facility] [id number] [place] [address] Feb, [facility] [id number] [place] [address] Feb, Low back pain M54.5 ; Anxiety F41.9 and Bronchitis J40 [facility] [id number] [place] [address] Jan, [facility] [id number] [place] [address] Jan, Anxiety F41.9 [facility] [id number] [place] [address] Jan, Chronic obstructive pulmonary disease, unspecified J44.9 [facility] [id number] [place] [address] Jan, Low back pain M54.5 [facility] [address] [place] [address] Dec, Vertigo R42 [facility] [id number] [place] [address] Dec, [facility] [address] [place] [address] Nov, [facility] [id number] [place] [address] Nov, Low back pain M54.5 and Anxiety F41.9 [facility] [id number] [place] [address] Nov, [facility] [id number] [place] [address] Nov, [facility] [id number] [place] [address] Oct, Low back pain M54.5 and Anxiety F41.9 [facility] [id number] [place] [address] September, [facility] [id number] [place] [address] Aug, Shortness of breath R06.02 [facility] [id number] [place] [address] Aug, Shortness of breath R06.02 [facility] [id number] [place] [address] Aug, [facility] [id number] [place] [address] Jul, Insomnia G47.00 and Shortness of breath R06.02 [facility] [id number] [place] [address] Jul, [facility] [id number] [place] [address] Jul, [facility] [id number] [place] [address] Jul, Bronchitis J40 [facility] [id number] [place] [address] Jul, [facility] [id number] [place] [address] Jun, [facility] [id number] [place] [address] Jun, [facility] [id number] [place] [address] May, [facility] [id number] [place] [address] May, [facility] [address] [address] Apr, [facility] [address] [address] Apr, [facility] [address] [address] Mar, [facility] [address] [address] Mar, [facility] [address] [place] [address] Mar, [facility] [address] [address] Feb, [facility] [id number] [address] Feb, [facility] [address] [address] Feb, Chronic obstructive pulmonary disease, unspecified J44.9 [facility] [address] [address] Jan, [facility] [address] [address] Jan, [facility] [address] [address] Dec, [facility] [address] [address] Dec, [facility] [address] [address] Dec, High risk medication use V58.69 ; Back pain 724.5 ; Insomnia 780.52 ; Screening, lipid V77.91 and Screening for prostate cancer V76.44 [facility] [address] [address] Nov, [facility] [place] [facility] [address] [id number] [place] [address] Nov, [facility] [place] [facility] [address] [id number] [place] [address] Nov, [facility] [place] [facility] [address] [id number] [place] [address] Oct, [facility] [place] [facility] [address] [id number] [place] [address] Oct, [facility] [place] [facility] [address] [id number] [place] [address] September, [facility] [place] [facility] [address] [id number] [place] [address] Aug, [facility] [place] [facility] [address] [id number] [place] [address] Aug, [facility] [place] [facility] [address] [id number] [place] [address] Jul, [facility] [place] [facility] [address] [id number] [place] [address] Jul, [facility] [place] [facility] [address] [id number] [place] [address] Jul, [facility] [place] [facility] [address] [id number] [place] [address] Jul, [facility] [place] [facility] [address] [id number] [address] Jul, [facility] [place] [facility] [address] [id number] [place] [address] Jul, [facility] [place] [facility] [address] [id number] [place] [address] Jun, [facility] [place] [facility] [address] [id number] [place] [address] Jun, [facility] [place] [facility] [address] [id number] [place] [address] Jun, [facility] [address] [id number] [place] [address] Jun, [facility] [place] [facility] [address] [id number] [place] [address] May, [facility] [place] [facility] [address] [id number] [place] [address] May, [facility] [place] [facility] [address] [id number] [place] [address] May, [facility] [place] [facility] [address] [id number] [place] [address] May, [facility] [place] [facility] [address] [facility] [id number] [place] [address] May, [facility] [place] [facility] [address] [id number] [place] [address] May, [facility] [address] [id number] [place] [address] Apr, [facility] [place] [facility] [address] [id number] [place] [address] Apr, [facility] [place] [facility] [address] [facility] [id number] [place] [address] Mar, [facility] [place] [facility] [address] [id number] [place] [address] Mar, [facility] [place] [facility] [address] [id number] [place] [address] Mar, [facility] [place] [facility] [address] [id number] [place] [address] Mar, [facility] [place] [facility] [address] [id number] [place] [address] Feb, [facility] [place] [facility] [address] [id number] [place] [address] Feb, [facility] [place] [facility] [address] [id number] [place] [address] Feb, [facility] [place] [facility] [address] [id number] [place] [address] Feb, [facility] [place] [facility] [address] [id number] [place] [address] Jan, [facility] [place] [facility] [address] [id number] [place] [address] Jan, 2013 [facility] [place] [facility] [address] [id number] [place] [address] Jan, [facility] [place] [facility] [address] [id number] [place] [address] Jan, [facility] [place] [facility] [address] [id number] [place] [address] Jan, [facility] [place] [facility] [address] [id number] [place] [address] Jan, [facility] [place] [facility] [address] [id number] [place] [address] Jan, [facility] [place] [facility] [address] [id number] [place] [address] Jan, [facility] [place] [facility] [address] [id number] [place] [address] Jan, [facility] [place] [facility] [address] [id number] [place] [address] Jan, [facility] [place] [facility] [address] [id number] [place] [address] Dec, [facility] [place] [facility] [address] [id number] [place] [address] Dec, [facility] [place] [facility] [address] [id number] [place] [address] Nov, [facility] [place] [facility] [address] [id number] [place] [address] Nov, 2013 [facility] [place] [facility] [address] [id number] [place] [address] Nov, 2013 [facility] [place] [facility] [address] [id number] [place] [address] Nov, 2013 [facility] [place] [facility] [address] [id number] [place] [address] Nov, 2013 [facility] [place] [facility] [address] [id number] [place] [address] Nov, 2013 [facility] [place] [facility] [address] [id number] [place] [address] Nov, 2013 [facility] [place] [facility] [address] [id number] [place] [address] Nov, 2013 [facility] [place] [facility] [address] [id number] [place] [address] Nov, 2013 [facility] [place] [facility] [address] [id number] [place] [address] Nov, 2013 [facility] [place] [facility] [address] [id number] [place] [address] Nov, 2013 [facility] [place] [facility] [address] [id number] [place] [address] Nov, [facility] [place] [facility] [address] [id number] [place] [address] Oct, [facility] [place] [facility] [address] [id number] [place] [address] Oct, [facility] [place] [facility] [address] [id number] [place] [address] Oct, [facility] [place] [facility] [address] [id number] [place] [address] Oct, [facility] [place] [facility] [address] [id number] [place] [address] Oct, [facility] [place] [facility] [address] [id number] [place] [address] Oct, [facility] [place] [facility] [address] [id number] [place] [address] Oct, [facility] [place] [facility] [address] [id number] [place] [address] Oct, [facility] [place] [facility] [address] [id number] [place] [address] September, [facility] [place] [facility] [address] [id number] [place] [address] September, [facility] [place] [facility] [address] [id number] [place] [address] September, [facility] [place] [facility] [address] [id number] [place] [address] September, [facility] [place] [facility] [address] [id number] [place] [address] September, [facility] [place] [facility] [address] [id number] [place] [address] September, [facility] [place] [facility] [address] [id number] [place] [address] September, [facility] [place] [facility] [address] [id number] [place] [address] September, [facility] [place] [facility] [address] [id number] [place] [address] September, [facility] [place] [facility] [address] [id number] [place] [address] September, [facility] [place] [facility] [address] [id number] [place] [address] Aug, [facility] [place] [facility] [address] [id number] [place] [address] Aug, [facility] [place] [facility] [address] [id number] [place] [address] Aug, [facility] [place] [facility] [address] [id number] [place] [address] 30 Aug, 2013 [facility] [place] [facility] [address] [id number] [place] [address] Aug, [facility] [place] [facility] [address] [id number] [place] [address] Aug, [facility] [place] [facility] [address] [id number] [place] [address] Aug, [facility] [place] [facility] [address] [id number] [place] [address] Aug, [facility] [place] [facility] [address] [id number] [place] [address] Aug, [facility] [place] [facility] [address] [address] [id number] [place] [address] Aug, [facility] [place] [facility] [address] [id number] [place] [address] Aug, [facility] [place] [facility] [address] [id number] [place] [address] Aug, [facility] [place] [facility] [address] [id number] [place] [address] Aug, [facility] [place] [facility] [address] [id number] [place] [address] Aug, [facility] [place] [facility] [address] [id number] [place] [address] Jul, [facility] [place] [facility] [address] [id number] [place] [address] Jul, [facility] [place] [facility] [address] [id number] [place] [address] Jul, [facility] [place] [facility] [address] [id number] [place] [address] Jul, [facility] [place] [facility] [address] [id number] [place] [address] 17 Jun, 2013 [facility] [place] [facility] [address] [id number] [place] [address] Jun, [facility] [place] [facility] [address] [id number] [place] [address] 14 Jun, 2013 [facility] [place] [facility] [address] [id number] [place] [address] Jun, [facility] [place] [facility] [address] [id number] [place] [address] Jun, [facility] [place] [facility] [address] [id number] [place] [address] Jun, [facility] [place] [facility] [address] [id number] [place] [address] Jun, [facility] [place] [facility] [address] [id number] [place] [address] May, [facility] [place] [facility] [address] [id number] [place] [address] May, [facility] [place] [facility] [address] [id number] [place] [address] May, [facility] [place] [facility] [address] [id number] [place] [address] May, [facility] [place] [facility] [address] [id number] [place] [address] May, [facility] [place] [facility] [address] [id number] [place] [address] May, [facility] [place] [facility] [address] [id number] [place] [address] Apr, [facility] [place] [facility] [address] [id number] [place] [address] Apr, [facility] [place] [facility] [address] [id number] [place] [address] Mar, [facility] [place] [facility] [address] [id number] [place] [address] Mar, [facility] [place] [facility] [address] [id number] [place] [address] Mar, [facility] [place] [facility] [address] [id number] [place] [address] Mar, [facility] [place] [facility] [address] [id number] [place] [address] Mar, [facility] [place] [facility] [address] [id number] [place] [address] Mar, [facility] [place] [facility] [address] [id number] [place] [address] Feb, [facility] [place] [facility] [address] [id number] [place] [address] Feb, [facility] [place] [facility] [address] [id number] [place] [address] Feb, [facility] [place] [facility] [address] [id number] [place] [address] Feb, [facility] [place] [facility] [address] [id number] [place] [address] Feb, [facility] [place] [facility] [address] [id number] [place] [address] Jan, [facility] [place] [facility] [address] [id number] [place] [address] Dec, [facility] [place] [facility] [address] [id number] [place] [address] Dec, [facility] [place] [facility] [address] [id number] [place] [address] Oct, [facility] [place] [facility] [address] [id number] [place] [address] Oct, [facility] [place] [facility] [address] [id number] [place] [address] Oct, [facility] [address] [id number] [place] [address] September, [facility] [address] [id number] [place] [address] September, [facility] [address] [id number] [place] [address] Aug, [facility] [place] [facility] [address] [id number] [place] [address] Aug, [facility] [address] [id number] [place] [address] Jul, [facility] [address] [id number] [place] [address] May, [facility] [address] [id number] [place] [address] May, [facility] [address] [id number] [place] [address] Apr, [facility] [address] [id number] [place] [address] Apr, [facility] [address] [id number] [place] [address] Apr, [facility] [address] [id number] [place] [address] Apr, [facility] [place] [facility] [address] [id number] [place] [address] Apr, [facility] [place] [facility] [address] [id number] [place] [address] Apr, [facility] [place] [facility] [address] [id number] [place] [address] Apr, [facility] [address] [id number] [place] [address] Apr, [facility] [place] [facility] [address] [id number] [place] [address] Mar, [facility] [place] [facility] [address] [id number] [place] [address] Mar, [facility] [place] [facility] [address] [id number] [place] [address] Feb, [facility] [place] [facility] [address] [id number] [place] [address] Feb, [facility] [place] [facility] [address] [id number] [place] [address] Feb, [facility] [place] [facility] [address] [id number] [place] [address] Jan, [facility] [place] [facility] [address] [id number] [place] [address] Jan, [facility] [place] [facility] [address] [id number] [place] [address] Dec, [facility] [place] [facility] [address] [id number] [place] [address] Dec, [facility] [place] [facility] [address] [id number] [place] [address] Dec, [facility] [place] [facility] [address] [id number] [place] [address] Dec, [facility] [place] [facility] [address] [id number] [place] [address] Nov, [facility] [place] [facility] [address] [id number] [place] [address] Nov, [facility] [place] [facility] [address] [id number] [place] [address] Nov, [facility] [place] [facility] [address] [id number] [place] [address] September, [facility] [place] [facility] [address] [id number] [place] [address] September, [facility] [address] [facility] [id number] [place] [address] September, [facility] [address] [facility] [id number] [place] [address] Aug, [facility] [address] [facility] [id number] [place] [address] Jun, [facility] [address] [facility] [id number] [place] [address] May, [facility] [address] [facility] [id number] [place] [address] Apr, [facility] [address] [facility] [id number] [place] [address] Apr, [facility] [address] [facility] [id number] [place] [address] Apr, [facility] [address] [facility] [id number] [place] [address] Mar, [facility] [address] [facility] [id number] [place] [address] Mar, [facility] [address] [facility] [id number] [place] [address] Feb, [facility] [address] [facility] [id number] [place] [address] Feb, [facility] [address] [facility] [id number] [place] [address] Feb, [facility] [address] [facility] [id number] [place] [address] Feb, [facility] [address] [facility] [id number] [place] [address] Nov, [facility] [address] [facility] [id number] [place] [address] Oct, IMMUNIZATIONS No Known Immunizations SOCIAL HISTORY Never Assessed REASON FOR VISIT [facility] PLAN OF CARE VITAL SIGNS MEDICATIONS Medication Instructions Dosage Frequency Start Date End Date Duration Status Magnesium 400mg 3 Tablet by Oral route 1 time per day Oct, Active Albuterol Sulfate 2.5 mg /3 mL (0.083 %) 1 1 Each by Inhalation route every 4 hours for cough and wheeze PRN for wheezing or cough Jul, Active PredniSONE 20 mg 2 tablet by Oral route 1 time per day for 5 day(s) Aug, Active Keflex 500 mg 1 capsule by Oral route 4 times per day for 10 days Feb, Active Hydrocodone-Acetaminophen 10-325 mg 1 tablet by Oral route 1 time per day PRN at hs Jul, Active Lisinopril 40 mg take 1 tablet by Oral route 1 time per day Take in am Mar, Active Ambien 5 mg 1 tablet by Oral route 1 time per day PRN Jun, Active Bactrim DS 800-160 mg 1 tablet by Oral route 2 times per day for 4 weeks Aug, Active Amoxicillin 500 mg 1 capsule by Oral route 3 times per day for 10 days Oct, Active ProAir HFA 90 mcg/actuation inhale 2 puffs by Inhalation route 1 time per day as needed PRN shortness of breath/cough May, Active Xanax 1 mg 1 tablet by Oral route 2 times per day Jul, Active Brovana 15 mcg/2 mL 1 Inhalant by Inhalation route 4 times per day Mar, Active Naproxen 500 mg take 1 tablet (500 mg) by oral route 2 times per day with food Mar, Active Aciphex 20 mg 1 tablet by Oral route 1 time per day May, Active RESULTS No Results PROCEDURES No Known [...] for surgery only Hospitalization History sepsis at [facility] 08/2017 Hospitalization History pancreatitis 03/2018
--- OUTSIDE RECORDS SUMMARY | 2018-10-24 13:41 | XMS REPORT ---
Author Author JENNIFER FERRELL Organization [facility] [place] Address [address] [place] [address] Care Team Providers Care Automotive Service Professional Name Role Phone JENNIFER FERRELL Unavailable PROBLEMS Type Condition ICD9-CM Code YTR12-MJ Code Onset Dates Condition Status SNOMED Code Problem Other obesity due to excess calories E66.09 Active 94545901480318 Problem Acute exacerbation of chronic obstructive pulmonary disease (COPD) J44.1 Active 145686801 Problem Other emphysema J43.8 Active 25406521 Problem Hypoalbuminemia E88.09 Active 865394232 Problem Mild intermittent asthma without complication J45.20 Active 638470504 Problem Status post cholecystectomy Z90.49 Active 477714881 Problem Thrombocytopenia D69.6 Active 710619520 Problem Chronic obstructive pulmonary disease with (acute) exacerbation J44.1 Active 574292241 Problem Other chronic pain G89.29 Active 53338477 Problem Essential hypertension I10 Active 03502470 Problem Primary insomnia F51.01 Active 7776379 Problem Shortness of breath R06.02 Active 475691404 Problem Gastroesophageal reflux disease without esophagitis K21.9 Active 305328686 Problem Dysthymia F34.1 Active 10723635 Problem Low back pain M54.5 Active 554276950 Problem Chronic obstructive pulmonary disease, unspecified J44.9 Active 55175600 Problem Insomnia G47.00 Active 218562610 Problem Obstructive sleep apnea syndrome G47.33 Active 31686027 Problem Anxiety F41.9 Active 13820407 Problem Body mass index (BMI) of 50-59.9 in adult Z68.43 Active 034282647 ALLERGIES No Known Allergies ENCOUNTERS Encounter Location Date Diagnosis [facility] [place] [address] [facility] [id number] [address] May, [facility] [place] [address] [facility] [id number] [place] [address] Apr, [place] [address] [address] 17 Apr, 2018 Pneumonia due to infectious organism, unspecified laterality, unspecified part of lung J18.9 ; Hypoalbuminemia E88.09 ; Status post bariatric surgery Z98.84 and BMI 40.0-44.9, adult Z68.[address] [address] 11 Apr, 2018 Primary insomnia F51.01 [place] [address] [address] Mar, Shortness of breath R06.02 ; Anasarca R60.1 ; Weakness R53.1 ; Status post cholecystectomy Z90.49 and History of pancreatitis Z87.[address] [address] 13 Mar, 2018 Primary insomnia F51.01 [place] [address] [address] Feb, Pain in right knee M25.[address] [address] 24 Feb, 2018 Status post bariatric surgery Z98.84 ; Chronic obstructive pulmonary disease, unspecified J44.9 ; Pain in right knee M25.561 ; Pain in left knee M25.562 ; Other chronic pain G89.29 ; Encounter for immunization Z23 and BMI 45.0-49.9, adult Z68.42 [place] [address] [address] 16 Feb, 2018 Primary insomnia F51.[address] [address] 14 Jan, 2018 Anxiety F41.9 and Primary insomnia F51.[address] [address] Dec, Anxiety F41.9 ; Primary insomnia F51.01 ; Low back pain M54.5 ; BMI 50.0-59.9, adult Z68.43 ; Shortness of breath R06.02 and Essential hypertension I10 [address] [address] Dec, Low back pain M54.5 and Primary insomnia F51.[address] [address] Dec, [place] [address] [address] Nov, Acute exacerbation of chronic obstructive pulmonary disease (COPD) J44.1 ; Primary insomnia F51.01 and Low back pain M54.5 [place] [address] [address] September, BMI 50.0-59.9, adult Z68.43 and Chronic obstructive pulmonary disease, unspecified COPD type J44.[address] [address] Aug, Chronic obstructive pulmonary disease, unspecified J44.9 ; Primary insomnia F51.01 ; Low back pain M54.5 and BMI 50.0-59.9, adult Z68.[address] [address] 16 Aug, 2017 Shortness of breath R06.02 ; Loose stools R19.5 and BMI 50.0-59.9, adult Z68.[address] [address] Aug, Acute renal injury N17.9 and Thrombocytopenia D69.[address] [address] May, [address] [address] Apr, [facility] [address] [address] Mar, Acute exacerbation of chronic obstructive pulmonary disease (COPD) J44.1 ; BMI 50.0-59.9, adult Z68.43 and BMI 60.0-69.9, adult Z68.44 [facility] [place] [address] [place] [id number] [place] [address] Mar, [facility] [place] [address] [address] Feb, Right anterior shoulder pain M25.511 ; Encounter for immunization Z23 ; Other emphysema J43.8 ; Other obesity due to excess calories E66.09 ; Body mass index (BMI) of 50-59.9 in adult Z68.43 and Low back pain M54.5 [facility] [place] [address] [place] [id number] [place] [address] Feb, [facility] [place] [address] [address] Feb, Low back pain M54.5 [facility] [place] [address] [place] [id number] [place] [address] Jan, [facility] [place] [address] [address] Jan, Low back pain M54.5 [facility] [place] [address] [place] [id number] [place] [address] Dec, Shortness of breath R06.02 [facility] [place] [address] [place] [id number] [place] [address] Dec, Low back pain M54.5 [facility] [place] [address] [address] Nov, Low back pain M54.5 [facility] [place] [address] [place] [id number] [place] [address] Oct, [facility] [place] [address] [address] Oct, Low back pain M54.5 [facility] [place] [id number] [place] [address] September, Low back pain M54.5 [facility] [address] [place] [id number] [place] [address] September, Sore throat J02.9 and Strep throat J02.0 [facility] [place] [address] [place] [id number] [place] [address] September, [facility] [place] [address] [place] [id number] [place] [address] Aug, Low back pain M54.5 [facility] [place] [address] [place] [id number] [place] [address] Aug, Medicare welcome exam Z00.00 ; Prostate cancer screening Z12.5 ; Encounter for screening for lung cancer Z12.2 and Lipid screening Z13.220 [facility] [place] [address] [place] [id number] [place] [address] Jul, [facility] [place] [address] [place] [id number] [place] [address] Jul, Low back pain M54.5 [facility] [place] [address] [place] [id number] [place] [address] Jul, [facility] [place] [address] [place] [id number] [place] [address] Jun, [facility] [place] [address] [place] [id number] [place] [address] Jun, Anxiety F41.9 and Low back pain M54.5 [facility] [place] [address] [place] [id number] [place] [address] 15 Jun, 2016 Shortness of breath R06.02 [facility] [place] [address] [place] [id number] [place] [address] May, Anxiety F41.9 and Low back pain M54.5 [facility] [place] [address] [place] [address] May, [facility] [place] [address] [place] [id number] [place] [address] Apr, [facility] [place] [address] [place] [id number] [place] [address] Apr, Chronic obstructive pulmonary disease, unspecified J44.9 [facility] [place] [address] [place] [id number] [place] [address] Apr, [facility] [place] [address] [place] [id number] [place] [address] Apr, Chronic obstructive pulmonary disease, unspecified J44.9 [facility] [place] [address] [place] [id number] [place] [address] Apr, [facility] [place] [address] [place] [id number] [place] [address] Apr, Anxiety F41.9 and Low back pain M54.5 [facility] [place] [address] [place] [id number] [place] [address] Mar, Encounter for immunization Z23 ; Obstructive sleep apnea syndrome G47.33 ; Low back pain M54.5 and Anxiety F41.9 [facility] [place] [address] [place] [id number] [place] [address] Mar, Chronic obstructive pulmonary disease, unspecified J44.9 [facility] [place] [address] [place] [id number] [place] [address] Mar, Chronic obstructive pulmonary disease, unspecified J44.9 [facility] [place] [address] [place] [id number] [place] [address] Mar, Chronic obstructive pulmonary disease, unspecified J44.9 [facility] [place] [address] [place] [id number] [place] [address] Feb, [facility] [place] [address] [place] [id number] [place] [address] Feb, [facility] [place] [address] [facility] [id number] [place] [address] Feb, Chronic obstructive pulmonary disease, unspecified J44.9 [facility] [place] [address] [facility] [id number] [place] [address] Feb, [facility] [place] [address] [place] [id number] [place] [address] Feb, Low back pain M54.5 ; Anxiety F41.9 and Bronchitis J40 [facility] [place] [address] [facility] [id number] [place] [address] Jan, [facility] [place] [address] [place] [id number] [place] [address] Jan, Anxiety F41.9 [facility] [place] [address] [place] [id number] [place] [address] Jan, Chronic obstructive pulmonary disease, unspecified J44.9 [facility] [place] [address] [facility] [id number] [place] [address] Jan, Low back pain M54.5 [facility] [place] [address] [place] [id number] [place] [address] Dec, Vertigo R42 [facility] [place] [address] [address] Dec, [facility] [place] [address] [place] [id number] [place] [address] Nov, [facility] [place] [address] [facility] [id number] [place] [address] Nov, Low back pain M54.5 and Anxiety F41.9 [facility] [place] [address] [facility] [id number] [place] [address] Nov, [facility] [place] [address] [place] [id number] [place] [address] Nov, [facility] [place] [address] [place] [id number] [address] Oct, Low back pain M54.5 and Anxiety F41.9 [facility] [place] [address] [place] [id number] [place] [address] September, [facility] [place] [address] [place] [id number] [place] [address] Aug, Shortness of breath R06.02 [facility] [place] [address] [place] [id number] [place] [address] Aug, Shortness of breath R06.02 [facility] [place] [address] [place] [id number] [place] [address] Aug, [facility] [place] [address] [place] [id number] [place] [address] Jul, Insomnia G47.00 and Shortness of breath R06.02 [facility] [place] [address] [place] [id number] [place] [address] Jul, [facility] [place] [address] [place] [id number] [place] [address] Jul, [facility] [place] [address] [place] [id number] [place] [address] Jul, Bronchitis J40 [facility] [place] [address] [place] [address] Jul, [facility] [place] [address] [place] [id number] [place] [address] Jun, [facility] [place] [address] [place] [id number] [place] [address] Jun, [facility] [place] [address] [place] [id number] [place] [address] May, [facility] [place] [address] [address] May, [facility] [place] [address] [address] Apr, [facility] [place] [address] [address] Apr, [facility] [place] [address] [address] Mar, [facility] [place] [address] [address] Mar, [facility] [place] [address] [place] [id number] [address] Mar, [facility] [place] [address] [place] [address] Feb, [facility] [place] [address] [address] Feb, [facility] [place] [address] [place] [address] Feb, Chronic obstructive pulmonary disease, unspecified J44.9 [facility] [place] [address] [address] Jan, [facility] [place] [address] [address] Jan, [facility] [place] [address] [address] Dec, [facility] [place] [address] [address] Dec, [facility] [place] [address] [place] [id number] [address] Dec, High risk medication use V58.69 ; Back pain 724.5 ; Insomnia 780.52 ; Screening, lipid V77.91 and Screening for prostate cancer V76.44 [facility] [place] [address] [place] [id number] [address] Nov, [facility] [place] [address] [place] [address] Nov, [facility] [place] [facility] [address] [id number] [place] [address] Nov, [facility] [place] [facility] [address] [id number] [place] [address] Oct, [facility] [place] [facility] [address] [id number] [place] [address] Oct, [facility] [place] [facility] [address] [id number] [place] [address] September, [facility] [place] [facility] [address] [id number] [place] [address] Aug, [facility] [place] [facility] [address] [id number] [place] [address] Aug, [facility] [place] [facility] [address] [id number] [place] [address] Jul, [facility] [place] [facility] [address] [id number] [place] [address] Jul, [facility] [place] [facility] [address] [id number] [place] [address] Jul, [facility] [place] [facility] [address] [facility] [id number] [place] [address] Jul, [facility] [place] [facility] [address] [id number] [place] [address] Jul, [facility] [place] [facility] [address] [id number] [place] [address] Jul, [facility] [place] [facility] [address] [id number] [place] [address] Jun, [facility] [place] [facility] [address] [id number] [place] [address] Jun, [facility] [place] [facility] [address] [id number] [place] [address] Jun, [facility] [place] [facility] [address] [id number] [place] [address] Jun, [facility] [place] [facility] [address] [id number] [place] [address] May, [facility] [place] [facility] [address] [id number] [place] [address] May, [facility] [place] [facility] [address] [id number] [place] [address] May, [facility] [place] [facility] [address] [id number] [place] [address] May, [facility] [place] [facility] [address] [id number] [place] [address] May, [facility] [place] [facility] [address] [id number] [place] [address] May, [facility] [place] [facility] [address] [id number] [place] [address] Apr, [facility] [place] [facility] [address] [id number] [place] [address] Apr, [facility] [place] [facility] [address] [facility] [id number] [place] [address] Mar, [facility] [place] [facility] [address] [id number] [place] [address] Mar, [facility] [place] [facility] [address] [id number] [place] [address] Mar, [facility] [place] [facility] [address] [id number] [place] [address] Mar, [facility] [place] [facility] [address] [id number] [place] [address] Feb, [facility] [place] [facility] [address] [id number] [place] [address] Feb, [facility] [place] [facility] [address] [id number] [place] [address] Feb, [facility] [place] [facility] [address] [id number] [place] [address] 13 Feb, 2014 [facility] [place] [facility] [address] [id number] [place] [address] Jan, 2013 [facility] [place] [facility] [address] [id number] [place] [address] Jan, 2013 [facility] [place] [facility] [address] [id number] [place] [address] Jan, 2013 [facility] [place] [facility] [address] [id number] [place] [address] Jan, 2013 [facility] [place] [facility] [address] [id number] [place] [address] Jan, 2013 [facility] [place] [facility] [address] [id number] [place] [address] Jan, 2013 [facility] [place] [facility] [address] [id number] [place] [address] Jan, 2013 [facility] [place] [facility] [address] [id number] [place] [address] Jan, 2013 [facility] [place] [facility] [address] [id number] [place] [address] Jan, 2013 [facility] [place] [facility] [address] [id number] [place] [address] Jan, 2013 [facility] [place] [facility] [address] [id number] [place] [address] Dec, [facility] [place] [facility] [address] [id number] [place] [address] Dec, [facility] [place] [facility] [address] [id number] [place] [address] Nov, [facility] [place] [facility] [address] [id number] [place] [address] Nov, [facility] [place] [facility] [address] [id number] [place] [address] Nov, 2013 [facility] [place] [facility] [address] [id number] [place] [address] Nov, 2013 [facility] [place] [facility] [address] [id number] [place] [address] Nov, 2013 [facility] [place] [facility] [address] [id number] [place] [address] Nov, 2013 [facility] [place] [facility] [address] [id number] [place] [address] Nov, 2013 [facility] [place] [facility] [address] [id number] [place] [address] Nov, 2013 [facility] [place] [facility] [address] [id number] [place] [address] Nov, 2013 [facility] [place] [facility] [address] [id number] [place] [address] Nov, 2013 [facility] [place] [facility] [address] [id number] [place] [address] Nov, 2013 [facility] [place] [facility] [address] [id number] [place] [address] Nov, 2013 [facility] [place] [facility] [address] [id number] [place] [address] Oct, [facility] [place] [facility] [address] [id number] [place] [address] Oct, [facility] [place] [facility] [address] [id number] [place] [address] Oct, [facility] [place] [facility] [address] [id number] [place] [address] Oct, [facility] [place] [facility] [address] [id number] [place] [address] Oct, [facility] [place] [facility] [address] [id number] [place] [address] Oct, [facility] [place] [facility] [address] [id number] [place] [address] Oct, [facility] [place] [facility] [address] [id number] [place] [address] Oct, [facility] [place] [facility] [address] [id number] [place] [address] September, [facility] [place] [facility] [address] [id number] [place] [address] September, [facility] [place] [facility] [address] [id number] [place] [address] September, [facility] [place] [facility] [address] [id number] [place] [address] September, [facility] [place] [facility] [address] [id number] [place] [address] September, [facility] [place] [facility] [address] [id number] [place] [address] September, [facility] [place] [facility] [address] [id number] [place] [address] September, [facility] [place] [facility] [address] [id number] [place] [address] September, [facility] [place] [facility] [address] [id number] [place] [address] September, [facility] [place] [facility] [address] [id number] [place] [address] September, [facility] [place] [facility] [address] [id number] [place] [address] Aug, [facility] [place] [facility] [address] [id number] [place] [address] Aug, [facility] [place] [facility] [address] [id number] [place] [address] Aug, [facility] [place] [facility] [address] [id number] [place] [address] 30 Aug, 2013 [facility] [place] [facility] [address] [id number] [place] [address] Aug, [facility] [place] [facility] [address] [id number] [place] [address] Aug, [facility] [place] [facility] [address] [id number] [place] [address] Aug, [facility] [place] [facility] [address] [id number] [place] [address] Aug, [facility] [place] [facility] [address] [id number] [place] [address] Aug, [facility] [place] [facility] [address] [id number] [place] [address] Aug, [facility] [place] [facility] [address] [id number] [place] [address] Aug, [facility] [place] [facility] [address] [id number] [place] [address] Aug, [facility] [place] [facility] [address] [id number] [place] [address] Aug, [facility] [place] [facility] [address] [id number] [place] [address] Aug, [facility] [place] [facility] [address] [id number] [place] [address] Jul, [facility] [place] [facility] [address] [id number] [place] [address] Jul, [facility] [place] [facility] [address] [id number] [place] [address] Jul, [facility] [place] [facility] [address] [id number] [place] [address] Jul, [facility] [place] [facility] [address] [id number] [place] [address] Jun, [facility] [place] [facility] [address] [id number] [place] [address] Jun, [facility] [place] [facility] [address] [id number] [place] [address] Jun, [facility] [place] [facility] [address] [id number] [place] [address] Jun, [facility] [place] [facility] [address] [id number] [place] [address] Jun, [facility] [place] [facility] [address] [id number] [place] [address] Jun, [facility] [place] [facility] [address] [id number] [place] [address] Jun, [facility] [place] [facility] [address] [id number] [place] [address] May, [facility] [place] [facility] [address] [id number] [place] [address] May, [facility] [place] [facility] [address] [id number] [place] [address] May, [facility] [place] [facility] [address] [id number] [place] [address] May, [facility] [place] [facility] [address] [id number] [place] [address] May, [facility] [place] [facility] [address] [id number] [place] [address] May, [facility] [place] [facility] [address] [id number] [place] [address] Apr, [facility] [place] [facility] [address] [id number] [place] [address] Apr, [facility] [place] [facility] [address] [id number] [place] [address] Mar, [facility] [place] [facility] [address] [id number] [place] [address] Mar, [facility] [place] [facility] [address] [id number] [place] [address] Mar, [facility] [place] [facility] [address] [id number] [place] [address] Mar, [facility] [place] [facility] [address] [id number] [place] [address] Mar, [facility] [place] [facility] [address] [id number] [place] [address] Mar, [facility] [place] [facility] [address] [id number] [place] [address] Feb, [facility] [place] [facility] [address] [id number] [place] [address] Feb, [facility] [place] [facility] [address] [id number] [place] [address] Feb, [facility] [place] [facility] [address] [id number] [place] [address] Feb, [facility] [place] [facility] [address] [id number] [place] [address] Feb, [facility] [place] [facility] [address] [facility] [id number] [place] [address] Jan, [facility] [place] [facility] [address] [id number] [place] [address] Dec, [facility] [place] [facility] [address] [id number] [place] [address] Dec, [facility] [place] [facility] [address] [id number] [place] [address] Oct, [facility] [place] [facility] [address] [id number] [place] [address] Oct, [facility] [place] [facility] [address] [id number] [place] [address] Oct, [facility] [place] [facility] [address] [id number] [place] [address] September, [facility] [address] [id number] [place] [address] September, [facility] [address] [id number] [place] [address] Aug, [facility] [address] [id number] [place] [address] Aug, [facility] [address] [id number] [place] [address] Jul, [facility] [address] [id number] [place] [address] May, [facility] [address] [id number] [place] [address] May, [facility] [address] [id number] [place] [address] Apr, [facility] [address] [id number] [place] [address] Apr, [facility] [address] [id number] [place] [address] Apr, [facility] [address] [id number] [place] [address] Apr, [facility] [address] [id number] [place] [address] Apr, [facility] [address] [id number] [place] [address] Apr, [facility] [address] [id number] [place] [address] Apr, [facility] [address] [id number] [place] [address] Apr, [facility] [address] [id number] [place] [address] Mar, [facility] [place] [facility] [address] [id number] [place] [address] Mar, [facility] [place] [facility] [address] [id number] [place] [address] Feb, [facility] [place] [facility] [address] [id number] [place] [address] Feb, [facility] [place] [facility] [address] [id number] [place] [address] Feb, [facility] [place] [facility] [address] [id number] [place] [address] Jan, [facility] [place] [facility] [address] [id number] [place] [address] Jan, [facility] [place] [facility] [address] [id number] [place] [address] Dec, [facility] [place] [facility] [address] [id number] [place] [address] Dec, [facility] [place] [facility] [address] [id number] [place] [address] Dec, [facility] [place] [facility] [address] [id number] [place] [address] Dec, [facility] [place] [facility] [address] [id number] [place] [address] Nov, [facility] [place] [facility] [address] [id number] [place] [address] Nov, [facility] [place] [facility] [address] [id number] [place] [address] Nov, [facility] [place] [facility] [address] [id number] [place] [address] September, [facility] [place] [facility] [address] [id number] [place] [address] September, [facility] [place] [facility] [address] [facility] [id number] [place] [address] September, [facility] [place] [address] [facility] [id number] [place] [address] Aug, [facility] [place] [address] [facility] [id number] [place] [address] Jun, [facility] [place] [address] [facility] [id number] [place] [address] May, [facility] [place] [address] [facility] [id number] [place] [address] Apr, [facility] [place] [address] [facility] [id number] [place] [address] Apr, [facility] [place] [address] [facility] [id number] [place] [address] Apr, [facility] [place] [id number] [place] [address] Mar, [facility] [place] [address] [facility] [id number] [place] [address] Mar, [facility] [place] [id number] [place] [address] Feb, [facility] [place] [address] [id number] [place] [address] Feb, [facility] [place] [id number] [place] [address] Feb, [facility] [place] [address] [facility] [id number] [place] [address] Feb, [facility] [place] [id number] [place] [address] Nov, [facility] [place] [address] [id number] [place] [address] Oct, IMMUNIZATIONS No Known Immunizations SOCIAL HISTORY Never Assessed REASON FOR VISIT [facility] Pt in for follow up pt states he is not feeling well since being lupis jose david AMILCAR Castro PLAN OF CARE Activity Details Follow Up prn Reason: VITAL SIGNS Height 70 in 2018-04-04 Weight 355.5 lbs 2018-04-04 Temperature 98.3 degrees Fahrenheit 2018-04-04 Heart Rate 82 bpm 2018-04-04 Respiratory Rate 24 2018-04-04 Oximetry on room air:90 % 2018-04-04 BMI 51 kg/m2 2018-04-04 Blood pressure systolic 122 mmHg 2018-04-04 Blood pressure diastolic 84 mmHg 2018-04-04 MEDICATIONS Medication Instructions Dosage Frequency Start Date End Date Duration Status ProAir HFA 108 (90 Base) MCG/ACT Inhalation every 4 hrs 2 puffs as needed for short of breath or wheeze 4h 50 Active Albuterol Sulfate HFA 108 (90 Base) MCG/ACT Inhalation every 6 hrs 2 puffs as needed 6h Aug, 90 days Active Alprazolam 1 MG Orally Twice a day 1 tablet 12h Dec, 28 days Active Advair Diskus 250-50 MCG/DOSE Inhalation Twice a day 1 puff 12h Aug, 90 days Active Diclofenac Sodium 1 % Transdermal 3 times a day Apply 4 grams to right knee as needed for pain 8h Feb, 30 days Active Zolpidem Tartrate 5 mg Orally Once a day 1 tablet at bedtime 24h Dec, 28 days Active Proventil HFA 108 (90 Base) MCG/ACT Inhalation every 6 hrs 2 puffs as needed 6h Active Lisinopril 40 mg Orally Once a day 1 tablet 24h 90 Active Budesonide 0.5 MG/2ML Inhalation Twice a day 1 vial in nebulizer 12h Active Brovana 15 MCG/2ML Inhalation Twice a day 1 vial in nebulizer 12h Active Albuterol Sulfate (2.5 MG/3ML) 0.083% Inhalation every 4 hrs 1 vial in nebuizer as needed for cough or wheeze 4h Active RESULTS No Results PROCEDURES Procedure Date Ordered Result Body Site [facility] VISIT ESTABLISHED PATIENT Apr 04, 2018 INSTRUCTIONS MEDICATIONS ADMINISTERED No Known Medications [...] Right knee scope with meniscus repair 2017 Hospitalization History Hospitalization for surgery only Hospitalization History sepsis at [facility] 08/2017 Hospitalization History pancreatitis 03/2018
--- OUTSIDE RECORDS SUMMARY | 2018-10-24 13:42 | XMS REPORT ---
Author Author JENNIFER FERRELL Organization [facility] Address [address] [place] [address] Care Team Providers Care Home [facility] Visitor Name Role Phone JENNIFER FERRELL Unavailable PROBLEMS Type Condition ICD9-CM Code RJQ08-CG Code Onset Dates Condition Status SNOMED Code Problem Other obesity due to excess calories E66.09 Active 14386310362173 Problem Acute exacerbation of chronic obstructive pulmonary disease (COPD) J44.1 Active 146267981 Problem Other emphysema J43.8 Active 11342982 Problem Hypoalbuminemia E88.09 Active 573777985 Problem Mild intermittent asthma without complication J45.20 Active 196769565 Problem Status post cholecystectomy Z90.49 Active 423262318 Problem Thrombocytopenia D69.6 Active 913788105 Problem Chronic obstructive pulmonary disease with (acute) exacerbation J44.1 Active 192342032 Problem Other chronic pain G89.29 Active 41620223 Problem Essential hypertension I10 Active 86944767 Problem Primary insomnia F51.01 Active 4525788 Problem Shortness of breath R06.02 Active 786488995 Problem Gastroesophageal reflux disease without esophagitis K21.9 Active 776810610 Problem Dysthymia F34.1 Active 59252709 Problem Low back pain M54.5 Active 736253709 Problem Chronic obstructive pulmonary disease, unspecified J44.9 Active 33534540 Problem Insomnia G47.00 Active 709911959 Problem Obstructive sleep apnea syndrome G47.33 Active 33644946 Problem Anxiety F41.9 Active 36293590 Problem Body mass index (BMI) of 50-59.9 in adult Z68.43 Active 860294525 ALLERGIES No Known Allergies ENCOUNTERS Encounter Location Date Diagnosis [facility] [address] [facility] [id number] [address] May, [facility] [address] [facility] [id number] [address] Apr, [place] [address] [address] 17 Apr, 2018 Pneumonia due to infectious organism, unspecified laterality, unspecified part of lung J18.9 ; Hypoalbuminemia E88.09 ; Status post bariatric surgery Z98.84 and BMI 40.0-44.9, adult Z68.[address] [address] 11 Apr, 2018 Primary insomnia F51.01 [place] [address] [address] Mar, Shortness of breath R06.02 ; Anasarca R60.1 ; Weakness R53.1 ; Status post cholecystectomy Z90.49 and History of pancreatitis Z87.[address] [address] 13 Mar, 2018 Primary insomnia F51.01 [place] [address] [address] Feb, Pain in right knee M25.[address] [address] 24 Feb, 2018 Status post bariatric surgery Z98.84 ; Chronic obstructive pulmonary disease, unspecified J44.9 ; Pain in right knee M25.561 ; Pain in left knee M25.562 ; Other chronic pain G89.29 ; Encounter for immunization Z23 and BMI 45.0-49.9, adult Z68.42 [place] [address] [address] 16 Feb, 2018 Primary insomnia F51.[address] [address] 14 Jan, 2018 Anxiety F41.9 and Primary insomnia F51.[address] [address] Dec, Anxiety F41.9 ; Primary insomnia F51.01 ; Low back pain M54.5 ; BMI 50.0-59.9, adult Z68.43 ; Shortness of breath R06.02 and Essential hypertension I10 [address] [address] Dec, Low back pain M54.5 and Primary insomnia F51.[address] [address] Dec, [place] [address] [address] Nov, Acute exacerbation of chronic obstructive pulmonary disease (COPD) J44.1 ; Primary insomnia F51.01 and Low back pain M54.5 [place] [address] [address] September, BMI 50.0-59.9, adult Z68.43 and Chronic obstructive pulmonary disease, unspecified COPD type J44.[address] [address] Aug, Chronic obstructive pulmonary disease, unspecified J44.9 ; Primary insomnia F51.01 ; Low back pain M54.5 and BMI 50.0-59.9, adult Z68.[address] [address] 16 Aug, 2017 Shortness of breath R06.02 ; Loose stools R19.5 and BMI 50.0-59.9, adult Z68.[address] [address] Aug, Acute renal injury N17.9 and Thrombocytopenia D69.[address] [address] May, [address] [address] Apr, [facility] [address] [address] Mar, Acute exacerbation of chronic obstructive pulmonary disease (COPD) J44.1 ; BMI 50.0-59.9, adult Z68.43 and BMI 60.0-69.9, adult Z68.44 [facility] [address] [place] [id number] [place] [address] Mar, [facility] [address] [address] Feb, Right anterior shoulder pain M25.511 ; Encounter for immunization Z23 ; Other emphysema J43.8 ; Other obesity due to excess calories E66.09 ; Body mass index (BMI) of 50-59.9 in adult Z68.43 and Low back pain M54.5 [facility] [address] [place] [id number] [place] [address] Feb, [facility] [address] [address] Feb, Low back pain M54.5 [facility] [address] [place] [id number] [place] [address] Jan, [facility] [address] [address] Jan, Low back pain M54.5 [facility] [address] [place] [id number] [place] [address] Dec, Shortness of breath R06.02 [facility] [address] [place] [id number] [place] [address] Dec, Low back pain M54.5 [facility] [address] [address] Nov, Low back pain M54.5 [facility] [address] [place] [id number] [place] [address] Oct, [facility] [address] [address] Oct, Low back pain M54.5 [facility] [id number] [place] [address] September, Low back pain M54.5 [facility] [address] [place] [id number] [place] [address] September, Sore throat J02.9 and Strep throat J02.0 [facility] [address] [place] [id number] [place] [address] September, [facility] [address] [place] [id number] [place] [address] Aug, Low back pain M54.5 [facility] [address] [place] [id number] [place] [address] Aug, Medicare welcome exam Z00.00 ; Prostate cancer screening Z12.5 ; Encounter for screening for lung cancer Z12.2 and Lipid screening Z13.220 [facility] [address] [place] [id number] [place] [address] Jul, [facility] [address] [place] [id number] [place] [address] Jul, Low back pain M54.5 [facility] [address] [place] [id number] [place] [address] Jul, [facility] [address] [place] [id number] [place] [address] Jun, [facility] [address] [place] [id number] [place] [address] Jun, Anxiety F41.9 and Low back pain M54.5 [facility] [address] [place] [id number] [place] [address] 15 Jun, 2016 Shortness of breath R06.02 [facility] [address] [place] [id number] [place] [address] May, Anxiety F41.9 and Low back pain M54.5 [facility] [id number] [place] [address] May, [facility] [address] [place] [id number] [place] [address] Apr, [facility] [address] [place] [id number] [place] [address] Apr, Chronic obstructive pulmonary disease, unspecified J44.9 [facility] [address] [place] [id number] [place] [address] Apr, [facility] [address] [place] [id number] [place] [address] Apr, Chronic obstructive pulmonary disease, unspecified J44.9 [facility] [address] [place] [id number] [place] [address] Apr, [facility] [address] [place] [id number] [place] [address] Apr, Anxiety F41.9 and Low back pain M54.5 [facility] [address] [place] [id number] [place] [address] Mar, Encounter for immunization Z23 ; Obstructive sleep apnea syndrome G47.33 ; Low back pain M54.5 and Anxiety F41.9 [facility] [address] [place] [id number] [place] [address] Mar, Chronic obstructive pulmonary disease, unspecified J44.9 [facility] [address] [place] [id number] [place] [address] Mar, Chronic obstructive pulmonary disease, unspecified J44.9 [facility] [address] [place] [id number] [place] [address] Mar, Chronic obstructive pulmonary disease, unspecified J44.9 [facility] [address] [place] [id number] [place] [address] Feb, [facility] [address] [place] [id number] [place] [address] Feb, [facility] [address] [facility] [id number] [address] Feb, Chronic obstructive pulmonary disease, unspecified J44.9 [facility] [address] [facility] [id number] [address] Feb, [facility] [address] [place] [id number] [place] [address] Feb, Low back pain M54.5 ; Anxiety F41.9 and Bronchitis J40 [facility] [address] [facility] [id number] [place] [address] Jan, [facility] [address] [place] [id number] [place] [address] Jan, Anxiety F41.9 [facility] [address] [place] [id number] [place] [address] Jan, Chronic obstructive pulmonary disease, unspecified J44.9 [facility] [address] [facility] [id number] [place] [address] Jan, Low back pain M54.5 [facility] [address] [place] [id number] [place] [address] Dec, Vertigo R42 [facility] [address] [address] Dec, [facility] [address] [place] [id number] [place] [address] Nov, [facility] [address] [facility] [id number] [place] [address] Nov, Low back pain M54.5 and Anxiety F41.9 [facility] [address] [facility] [id number], [place] [address] Nov, [facility] [address] [place] [id number] [place] [address] Nov, [facility] [address] [id number] [address] Oct, Low back pain M54.5 and Anxiety F41.9 [facility] [address] [place] [id number] [place] [address] September, [facility] [address] [place] [id number] [place] [address] Aug, Shortness of breath R06.02 [facility] [address] [place] [id number] [place] [address] Aug, Shortness of breath R06.02 [facility] [address] [place] [id number] [place] [address] Aug, [facility] [address] [place] [id number] [place] [address] Jul, Insomnia G47.00 and Shortness of breath R06.02 [facility] [address] [place] [id number] [place] [address] Jul, [facility] [address] [place] [id number] [place] [address] Jul, [facility] [address] [place] [id number] [place] [address] Jul, Bronchitis J40 [facility] [id number] [place] [address] Jul, [facility] [address] [place] [id number] [place] [address] Jun, [facility] [address] [place] [id number] [place] [address] Jun, [facility] [address] [place] [id number] [place] [address] May, [facility] [address] [address] May, [facility] [address] [address] Apr, [facility] [address] [address] Apr, [facility] [address] [address] Mar, [facility] [address] [address] Mar, [facility] [address] [id number] [address] Mar, [facility] [id number] [place] [address] Feb, [facility] [address] [address] Feb, [facility] [address] [place] [address] Feb, Chronic obstructive pulmonary disease, unspecified J44.9 [facility] [address] [address] Jan, [facility] [address] [address] Jan, [facility] [address] [address] Dec, [facility] [address] [address] Dec, [facility] [address] [place] [id number] [address] Dec, High risk medication use V58.69 ; Back pain 724.5 ; Insomnia 780.52 ; Screening, lipid V77.91 and Screening for prostate cancer V76.44 [facility] [address] [id number] [address] Nov, [facility] [address] [place] [address] Nov, [facility] [place] [facility] [address] [id number] [place] [address] Nov, [facility] [place] [facility] [address] [id number] [place] [address] Oct, [facility] [place] [facility] [address] [id number] [place] [address] Oct, [facility] [place] [facility] [address] [id number] [place] [address] September, [facility] [place] [facility] [address] [id number] [place] [address] Aug, [facility] [place] [facility] [address] [id number] [place] [address] Aug, [facility] [place] [facility] [address] [id number] [place] [address] Jul, [facility] [place] [facility] [address] [id number] [place] [address] Jul, [facility] [place] [facility] [address] [id number] [place] [address] Jul, [facility] [place] [facility] [address] [facility] [id number] [place] [address] Jul, [facility] [place] [facility] [address] [id number] [place] [address] Jul, [facility] [place] [facility] [address] [id number] [place] [address] Jul, [facility] [place] [facility] [address] [id number] [place] [address] Jun, [facility] [place] [facility] [address] [id number] [place] [address] Jun, [facility] [place] [facility] [address] [id number] [place] [address] Jun, [facility] [place] [facility] [address] [id number] [place] [address] Jun, [facility] [place] [facility] [address] [id number] [place] [address] May, [facility] [place] [facility] [address] [id number] [place] [address] May, [facility] [place] [facility] [address] [id number] [place] [address] May, [facility] [place] [facility] [address] [id number] [place] [address] May, [facility] [place] [facility] [address] [id number] [place] [address] May, [facility] [place] [facility] [address] [id number] [place] [address] May, [facility] [place] [facility] [address] [id number] [place] [address] Apr, [facility] [place] [facility] [address] [id number] [place] [address] Apr, [facility] [place] [facility] [address] [facility] [id number] [place] [address] Mar, [facility] [place] [facility] [address] [id number], [place] [address] Mar, [facility] [place] [facility] [address] [id number], [place] [address] Mar, [facility] [place] [facility] [address] [id number] [place] [address] Mar, [facility] [place] [facility] [address] [id number] [place] [address] Feb, [facility] [place] [facility] [address] [id number] [place] [address] Feb, [facility] [place] [facility] [address] [id number] [place] [address] Feb, [facility] [place] [facility] [address] [id number] [place] [address] 13 Feb, 2014 [facility] [place] [facility] [address] [id number] [place] [address] Jan, 2013 [facility] [place] [facility] [address] [id number] [place] [address] Jan, 2013 [facility] [place] [facility] [address] [id number] [place] [address] Jan, 2013 [facility] [place] [facility] [address] [id number] [place] [address] Jan, 2013 [facility] [place] [facility] [address] [id number] [place] [address] Jan, 2013 [facility] [place] [facility] [address] [id number] [place] [address] Jan, 2013 [facility] [place] [facility] [address] [id number] [place] [address] Jan, 2013 [facility] [place] [facility] [address] [id number] [place] [address] Jan, 2013 [facility] [place] [facility] [address] [id number] [place] [address] Jan, 2013 [facility] [place] [facility] [address] [id number] [place] [address] Jan, 2013 [facility] [place] [facility] [address] [id number], [place] [address] Dec, [facility] [place] [facility] [address] [id number] [place] [address] Dec, [facility] [place] [facility] [address] [id number] [place] [address] Nov, [facility] [place] [facility] [address] [id number] [place] [address] Nov, [facility] [place] [facility] [address] [id number] [place] [address] Nov, 2013 [facility] [place] [facility] [address] [id number] [place] [address] Nov, 2013 [facility] [place] [facility] [address] [id number] [place] [address] Nov, 2013 [facility] [place] [facility] [address] [id number] [place] [address] Nov, 2013 [facility] [place] [facility] [address] [id number] [place] [address] Nov, 2013 [facility] [place] [facility] [address] [id number] [place] [address] Nov, 2013 [facility] [place] [facility] [address] [id number] [place] [address] Nov, 2013 [facility] [place] [facility] [address] [id number] [place] [address] Nov, 2013 [facility] [place] [facility] [address] [id number] [place] [address] Nov, 2013 [facility] [place] [facility] [address] [id number] [place] [address] Nov, 2013 [facility] [place] [facility] [address] [id number] [place] [address] Oct, [facility] [place] [facility] [address] [id number] [place] [address] Oct, [facility] [place] [facility] [address] [id number] [place] [address] Oct, [facility] [place] [facility] [address] [id number] [place] [address] Oct, [facility] [place] [facility] [address] [id number] [place] [address] Oct, [facility] [place] [facility] [address] [id number] [place] [address] Oct, [facility] [place] [facility] [address] [id number] [place] [address] Oct, [facility] [place] [facility] [address] [id number] [place] [address] Oct, [facility] [place] [facility] [address] [id number] [place] [address] September, [facility] [place] [facility] [address] [id number] [place] [address] September, [facility] [place] [facility] [address] [id number] [place] [address] September, [facility] [place] [facility] [address] [id number] [place] [address] September, [facility] [place] [facility] [address] [id number] [place] [address] September, [facility] [place] [facility] [address] [id number] [place] [address] September, [facility] [place] [facility] [address] [id number] [place] [address] September, [facility] [place] [facility] [address] [id number] [place] [address] September, [facility] [place] [facility] [address] [id number] [place] [address] September, [facility] [place] [facility] [address] [id number] [place] [address] September, [facility] [place] [facility] [address] [id number] [place] [address] Aug, [facility] [place] [facility] [address] [id number] [place] [address] Aug, [facility] [place] [facility] [address] [id number] [place] [address] Aug, [facility] [place] [facility] [address] [id number] [place] [address] 30 Aug, 2013 [facility] [place] [facility] [address] [id number] [place] [address] Aug, [facility] [place] [facility] [address] [id number] [place] [address] Aug, [facility] [place] [facility] [address] [id number] [place] [address] Aug, [facility] [place] [facility] [address] [id number] [place] [address] Aug, [facility] [place] [facility] [address] [id number] [place] [address] Aug, [facility] [place] [facility] [address] [id number] [place] [address] Aug, [facility] [place] [facility] [address] [id number] [place] [address] Aug, [facility] [place] [facility] [address] [id number] [place] [address] Aug, [facility] [place] [facility] [address] [id number] [place] [address] Aug, [facility] [place] [facility] [address] [id number] [place] [address] Aug, [facility] [place] [facility] [address] [id number] [place] [address] Jul, [facility] [place] [facility] [address] [id number] [place] [address] Jul, [facility] [place] [facility] [address] [id number] [place] [address] Jul, [facility] [place] [facility] [address] [id number] [place] [address] Jul, [facility] [place] [facility] [address] [id number] [place] [address] Jun, [facility] [place] [facility] [address] [id number] [place] [address] Jun, [facility] [place] [facility] [address] [id number] [place] [address] Jun, [facility] [place] [facility] [address] [id number] [place] [address] Jun, [facility] [place] [facility] [address] [id number] [place] [address] Jun, [facility] [place] [facility] [address] [id number] [place] [address] Jun, [facility] [place] [facility] [address] [id number] [place] [address] Jun, [facility] [place] [facility] [address] [id number] [place] [address] May, [facility] [place] [facility] [address] [id number] [place] [address] May, [facility] [place] [facility] [address] [id number] [place] [address] May, [facility] [place] [facility] [address] [id number] [place] [address] May, [facility] [place] [facility] [address] [id number] [place] [address] May, [facility] [place] [facility] [address] [id number] [place] [address] May, [facility] [place] [facility] [address] [id number] [place] [address] Apr, [facility] [place] [facility] [address] [id number] [place] [address] Apr, [facility] [place] [facility] [address] [id number] [place] [address] Mar, [facility] [place] [facility] [address] [id number] [place] [address] Mar, [facility] [place] [facility] [address] [id number] [place] [address] Mar, [facility] [place] [facility] [address] [id number] [place] [address] Mar, [facility] [place] [facility] [address] [id number] [place] [address] Mar, [facility] [place] [facility] [address] [id number] [place] [address] Mar, [facility] [place] [facility] [address] [id number] [place] [address] Feb, [facility] [place] [facility] [address] [id number] [place] [address] Feb, [facility] [place] [facility] [address] [id number] [place] [address] Feb, [facility] [place] [facility] [address] [id number] [place] [address] Feb, [facility] [place] [facility] [address] [id number] [place] [address] Feb, [facility] [place] [facility] [address] [facility] [id number] [place] [address] Jan, [facility] [place] [facility] [address] [id number] [place] [address] Dec, [facility] [place] [facility] [address] [id number] [address] Dec, [facility] [place] [facility] [address] [id number] [place] [address] Oct, [facility] [place] [facility] [address] [id number] [place] [address] Oct, [facility] [place] [facility] [address] [id number] [address] Oct, [facility] [place] [facility] [address] [id number] [place] [address] September, [facility] [address] [id number] [place] [address] September, [facility] [address] [id number] [place] [address] Aug, [facility] [address] [id number] [place] [address] Aug, [facility] [address] [id number] [place] [address] Jul, [facility] [address] [id number] [place] [address] May, [facility] [address] [id number] [place] [address] May, [facility] [address] [id number] [place] [address] Apr, [facility] [address] [id number] [place] [address] Apr, [facility] [address] [id number] [place] [address] Apr, [facility] [address] [id number] [place] [address] Apr, [facility] [address] [id number] [place] [address] Apr, [facility] [address] [id number] [place] [address] Apr, [facility] [address] [id number] [place] [address] Apr, [facility] [address] [id number] [place] [address] Apr, [facility] [address] [id number] [place] [address] Mar, [facility] [place] [facility] [address] [id number] [place] [address] Mar, [facility] [place] [facility] [address] [id number] [place] [address] Feb, [facility] [place] [facility] [address] [id number] [place] [address] Feb, [facility] [place] [facility] [address] [id number] [place] [address] Feb, [facility] [place] [facility] [address] [id number] [place] [address] Jan, [facility] [place] [facility] [address] [id number] [place] [address] Jan, [facility] [place] [facility] [address] [id number] [place] [address] Dec, [facility] [place] [facility] [address] [id number] [place] [address] Dec, [facility] [place] [facility] [address] [id number] [place] [address] Dec, [facility] [place] [facility] [address] [id number] [place] [address] Dec, [facility] [place] [facility] [address] [id number] [place] [address] Nov, [facility] [place] [facility] [address] [id number] [place] [address] Nov, [facility] [place] [facility] [address] [id number] [place] [address] Nov, [facility] [place] [facility] [address] [id number] [place] [address] September, [facility] [place] [facility] [address] [id number] [place] [address] September, [facility] [place] [facility] [address] [facility] [id number] [place] [address] September, [facility] [address] [facility] [id number] [address] Aug, [facility] [address] [facility] [id number] [place] [address] Jun, [facility] [address] [facility] [id number] [address] May, [facility] [address] [facility] [id number] [place] [address] Apr, [facility] [address] [facility] [id number] [place] [address] Apr, [facility] [address] [facility] [id number] [place] [address] Apr, [facility] [address] [id number] [address] Mar, [facility] [address] [facility] [id number], [place] [address] Mar, [facility] [address] [id number], [place] [address] Feb, [facility] [address] [id number], [place] [address] Feb, [facility] [address] [id number], [place] [address] Feb, [facility] [address] [facility] [id number], [place] [address] Feb, [facility] [address] [facility] [id number], [place] [address] Nov, [facility] [address] [facility] [id number] [address] Oct, IMMUNIZATIONS No Known Immunizations SOCIAL HISTORY Never Assessed REASON FOR VISIT Hospital f/u Pt in for follow up from hospital, states he is doing better [employer] ier, [place] PLAN OF CARE Activity Details Follow Up 4 Weeks Reason:hypoalbuminemia VITAL SIGNS Height 70 in 2018-04-23 Weight 286 lbs 2018-04-23 Heart Rate 86 bpm 2018-04-23 Respiratory Rate 22 2018-04-23 Oximetry on room air:95 % 2018-04-23 BMI 41.03 kg/m2 2018-04-23 Blood pressure systolic 128 mmHg 2018-04-23 Blood pressure diastolic 82 mmHg 2018-04-23 MEDICATIONS Medication Instructions Dosage Frequency Start Date End Date Duration Status Advair Diskus 250-50 MCG/DOSE Inhalation Twice a day 1 puff 12h Aug, 90 days Active ProAir HFA 108 (90 Base) MCG/ACT Inhalation every 4 hrs 2 puffs as needed for short of breath or wheeze 4h 50 Active Albuterol Sulfate (2.5 MG/3ML) 0.083% Inhalation every 4 hrs 1 vial in nebuizer as needed for cough or wheeze 4h Active Zolpidem Tartrate 5 mg Orally Once a day 1 tablet at bedtime 24h Dec, 28 days Active Brovana 15 MCG/2ML Inhalation Twice a day 1 vial in nebulizer 12h Active Proventil HFA 108 (90 Base) MCG/ACT Inhalation every 6 hrs 2 puffs as needed 6h Active Diclofenac Sodium 1 % Transdermal 3 times a day Apply 4 grams to right knee as needed for pain 8h Feb, 30 days Active Budesonide 0.5 MG/2ML Inhalation Twice a day 1 vial in nebulizer 12h Active Albuterol Sulfate HFA 108 (90 Base) MCG/ACT Inhalation every 6 hrs 2 puffs as needed 6h Aug, 90 days Active RESULTS No Results PROCEDURES Procedure Date Ordered Result Body Site [facility] VISIT ESTABLISHED PATIENT Apr 23, 2018 INSTRUCTIONS MEDICATIONS ADMINISTERED No Known Medications [...] for surgery only Hospitalization History sepsis at [facility] 08/2017 Hospitalization History pancreatitis 03/2018
--- OUTSIDE RECORDS SUMMARY | 2018-10-24 13:42 | XMS REPORT ---
Author Author JENNIFRE FERRELL Organization [facility] Address [address] [place] [address] Care Team Providers Care Collection Systems Administrator Name Role Phone JENNIFER FERRELL Unavailable PROBLEMS Type Condition ICD9-CM Code NRL36-HP Code Onset Dates Condition Status SNOMED Code Problem Body mass index (BMI) of 50-59.9 in adult Z68.43 Active 955112443 Problem Other emphysema J43.8 Active 81545351 Problem Other obesity due to excess calories E66.09 Active 43533322440891 Problem Status post cholecystectomy Z90.49 Active 470159568 Problem Other chronic pain G89.29 Active 92617299 Problem Chronic obstructive pulmonary disease with (acute) exacerbation J44.1 Active 598795717 Problem Acute exacerbation of chronic obstructive pulmonary disease (COPD) J44.1 Active 185747254 Problem Essential hypertension I10 Active 02529644 Problem Thrombocytopenia D69.6 Active 186720374 Problem Dysthymia F34.1 Active 51931803 Problem Primary insomnia F51.01 Active 0746831 Problem Mild intermittent asthma without complication J45.20 Active 452506293 Problem Gastroesophageal reflux disease without esophagitis K21.9 Active 368896822 Problem Anxiety F41.9 Active 92086791 Problem Low back pain M54.5 Active 239632788 Problem Shortness of breath R06.02 Active 175809098 Problem Chronic obstructive pulmonary disease, unspecified J44.9 Active 27934670 Problem Insomnia G47.00 Active 062632383 Problem Obstructive sleep apnea syndrome G47.33 Active 77239289 ALLERGIES No Information ENCOUNTERS Encounter Location Date Diagnosis [facility] [id number], [place] [address] Apr, [facility] [id number], [place] [address] Apr, Primary insomnia F51.01 [place] [address] [address] Mar, Shortness of breath R06.02 ; Anasarca R60.1 ; Weakness R53.1 ; Status post cholecystectomy Z90.49 and History of pancreatitis Z87.19 [place] [address] [address] Mar, Primary insomnia F51.01 [place] [address] [address] Feb, Pain in right knee M25.561 [place] [address] [address] Feb, Status post bariatric surgery Z98.84 ; Chronic obstructive pulmonary disease, unspecified J44.9 ; Pain in right knee M25.561 ; Pain in left knee M25.562 ; Other chronic pain G89.29 ; Encounter for immunization Z23 and BMI 45.0-49.9, adult Z68.42 [place] [address] [address] 16 Feb, 2018 Primary insomnia F51.01 [place] [address] [address] Jan, Anxiety F41.9 and Primary insomnia F51.01 [place] [address] [address] Dec, Anxiety F41.9 ; Primary insomnia F51.01 ; Low back pain M54.5 ; BMI 50.0-59.9, adult Z68.43 ; Shortness of breath R06.02 and Essential hypertension I10 [place] [address] [address] Dec, Low back pain M54.5 and Primary insomnia F51.01 [place] [address] [address] Dec, [place] [address] [place] [address] Nov, Acute exacerbation of chronic obstructive pulmonary disease (COPD) J44.1 ; Primary insomnia F51.01 and Low back pain M54.5 [place] [id number] [place] [address] September, BMI 50.0-59.9, adult Z68.43 and Chronic obstructive pulmonary disease, unspecified COPD type J44.9 [place] [address] [address] Aug, Chronic obstructive pulmonary disease, unspecified J44.9 ; Primary insomnia F51.01 ; Low back pain M54.5 and BMI 50.0-59.9, adult Z68.43 [place] [id number] [place] [address] 16 Aug, 2017 Shortness of breath R06.02 ; Loose stools R19.5 and BMI 50.0-59.9, adult Z68.43 [place] [id number] [place] [address] Aug, Acute renal injury N17.9 and Thrombocytopenia D69.6 [place] [address] [address] May, [place] [id number] [place] [address] Apr, [facility] [id number] [place] [address] Mar, Acute exacerbation of chronic obstructive pulmonary disease (COPD) J44.1 ; BMI 50.0-59.9, adult Z68.43 and BMI 60.0-69.9, adult Z68.44 [place] [id number] [place] [address] 09 Mar, 2017 [facility] [id number] [place] [address] Feb, Right anterior shoulder pain M25.511 ; Encounter for immunization Z23 ; Other emphysema J43.8 ; Other obesity due to excess calories E66.09 ; Body mass index (BMI) of 50-59.9 in adult Z68.43 and Low back pain M54.5 [facility] [id number] [place] [address] Feb, [facility] [address] [address] Feb, Low back pain M54.5 [facility] [address] [address] Jan, [facility] [address] [address] Jan, Low back pain M54.5 [facility] [id number] [place] [address] Dec, Shortness of breath R06.02 [facility] [address] [address] Dec, Low back pain M54.5 [facility] [address] [address] Nov, Low back pain M54.5 [facility] [id number] [place] [address] Oct, [facility] [id number] [place] [address] Oct, Low back pain M54.5 [facility] [id number] [place] [address] September, Low back pain M54.5 [facility] [address] [address] September, Sore throat J02.9 and Strep throat J02.0 [facility] [id number] [place] [address] September, [facility] [address], [place] [address] Aug, Low back pain M54.5 [facility] [id number] [place] [address] Aug, Medicare welcome exam Z00.00 ; Prostate cancer screening Z12.5 ; Encounter for screening for lung cancer Z12.2 and Lipid screening Z13.220 [facility] [id number] [place] [address] Jul, [facility] [id number] [place] [address] Jul, Low back pain M54.5 [facility] [id number] [place] [address] Jul, [place] [id number] [place] [address] Jun, [facility] [id number] [place] [address] Jun, Anxiety F41.9 and Low back pain M54.5 [place] [id number] [place] [address] Jun, Shortness of breath R06.02 [place] [id number] [place] [address] May, Anxiety F41.9 and Low back pain M54.5 [facility] [id number] [address] May, [facility] [id number] [place] [address] Apr, [facility] [id number] [place] [address] Apr, Chronic obstructive pulmonary disease, unspecified J44.9 [facility] [id number] [place] [address] Apr, [facility] [id number] [place] [address] Apr, Chronic obstructive pulmonary disease, unspecified J44.9 [facility] [id number] [place] [address] Apr, [facility] [id number] [place] [address] Apr, Anxiety F41.9 and Low back pain M54.5 [facility] [id number] [place] [address] Mar, Encounter for immunization Z23 ; Obstructive sleep apnea syndrome G47.33 ; Low back pain M54.5 and Anxiety F41.9 [facility] [id number] [place] [address] Mar, Chronic obstructive pulmonary disease, unspecified J44.9 [facility] [id number] [place] [address] Mar, Chronic obstructive pulmonary disease, unspecified J44.9 [facility] [id number] [place] [address] Mar, Chronic obstructive pulmonary disease, unspecified J44.9 [facility] [id number] [place] [address] Feb, [facility] [id number] [place] [address] Feb, [facility] [id number] [place] [address] Feb, Chronic obstructive pulmonary disease, unspecified J44.9 [facility] [id number] [place] [address] Feb, [facility] [id number] [place] [address] Feb, Low back pain M54.5 ; Anxiety F41.9 and Bronchitis J40 [facility] [address] [facility] [id number] [place] [address] 27 Jan, 2016 [facility] [id number] [place] [address] 15 Jan, 2016 Anxiety F41.9 [facility] [id number] [place] [address] Jan, Chronic obstructive pulmonary disease, unspecified J44.9 [facility] [id number] [place] [address] 06 Jan, 2016 Low back pain M54.5 [facility] [id number] [place] [address] Dec, Vertigo R42 [facility] [id number] [place] [address] Dec, [facility] [id number] [place] [address] Nov, [facility] [id number] [place] [address] Nov, Low back pain M54.5 and Anxiety F41.9 [facility] [id number] [place] [address] Nov, [facility] [id number] [place] [address] Nov, [facility] [id number] [place] [address] Oct, Low back pain M54.5 and Anxiety F41.9 [facility] [id number] [place] [address] September, [facility] [id number] [place] [address] Aug, Shortness of breath R06.02 [facility] [address] [place] [address] Aug, Shortness of breath R06.02 [facility] [id number] [place] [address], [place] [address] Aug, [facility] [id number] [place] [address], [place] [address] 30 Jul, 2015 Insomnia G47.00 and Shortness of breath R06.02 [facility] [id number] [place] [address], [place] [address] Jul, [facility] [id number] [place] [address], [place] [address] Jul, [facility] [id number] [place] [address], [place] [address] Jul, Bronchitis J40 [facility] [id number] [place] [address], [place] [address] Jul, [facility] [id number] [place] [address], [place] [address] Jun, [facility] [id number] [place] [address], [place] [address] Jun, [facility] [id number] [place] [address], [place] [address] May, [facility] [id number] [place] [address] May, [facility] [id number], [place] [address] Apr, [facility] [id number] [place] [address], [place] [address] Apr, [facility] [address], [place] [address] Mar, [facility] [id number] [place] [address] Mar, [facility] [address], [place] [address] Mar, [facility] [address], [place] [address] Feb, [facility] [address], [place] [address] Feb, [facility] [id number] [place] [address] Feb, Chronic obstructive pulmonary disease, unspecified J44.9 [facility] [address], [place] [address] Jan, [facility] [id number] [place] [address] Jan, [facility] [address], [place] [address] Dec, [facility] [id number] [place] [address] Dec, [facility] [address], [place] [address] Dec, High risk medication use V58.69 ; Back pain 724.5 ; Insomnia 780.52 ; Screening, lipid V77.91 and Screening for prostate cancer V76.44 [facility] [address], [place] [address] Nov, [facility] [address], [place] [address] Nov, [facility] [address], [place] [address] Nov, [facility] [address], [place] [address] Oct, [facility] [id number], [place] [address] Oct, [facility] [id number] [place] [address] September, [facility] [place] [facility] [address] [id number] [place] [address] Aug, [facility] [place] [facility] [address] [id number] [place] [address] Aug, [facility] [place] [facility] [address] [id number] [place] [address] Jul, [facility] [place] [facility] [address] [id number] [place] [address] Jul, [facility] [place] [facility] [address] [id number] [place] [address] Jul, [facility] [place] [facility] [address] [id number] [place] [address] Jul, [facility] [place] [facility] [address] [id number] [place] [address] Jul, [facility] [place] [facility] [address] [id number] [place] [address] Jul, [facility] [place] [facility] [address] [id number] [place] [address] Jun, [facility] [place] [facility] [address] [id number] [place] [address] Jun, [facility] [place] [facility] [address] [id number] [place] [address] Jun, [facility] [place] [facility] [address] [id number] [place] [address] Jun, [facility] [place] [facility] [address] [id number] [place] [address] May, [facility] [place] [facility] [address] [id number] [place] [address] May, [facility] [place] [facility] [address] [id number] [place] [address] May, [facility] [place] [facility] [address] [id number] [place] [address] May, [facility] [place] [facility] [address] [id number] [place] [address] May, [facility] [place] [facility] [address] [id number] [place] [address] May, [facility] [place] [facility] [address] [id number] [place] [address] Apr, [facility] [place] [facility] [address] [id number] [place] [address] Apr, [facility] [place] [facility] [address] [id number] [place] [address] Mar, [facility] [place] [facility] [address] [id number] [place] [address] Mar, [facility] [place] [facility] [address] [id number] [place] [address] Mar, [facility] [place] [facility] [address] [id number] [place] [address] Mar, [facility] [place] [facility] [address] [id number] [place] [address] Feb, [facility] [place] [facility] [address] [id number] [place] [address] Feb, [facility] [place] [facility] [address] [id number] [address] Feb, [facility] [place] [facility] [address] [id number] [place] [address] Feb, [facility] [place] [facility] [address] [id number] [place] [address] Jan, [facility] [place] [facility] [address] [id number] [place] [address] Jan, [facility] [place] [facility] [address] [id number] [place] [address] 17 Jan, 2013 [facility] [place] [facility] [address] [id number] [place] [address] 17 Jan, 2013 [facility] [place] [facility] [address] [id number] [place] [address] Jan, 2013 [facility] [place] [facility] [address] [id number] [place] [address] Jan, 2013 [facility] [place] [facility] [address] [id number] [place] [address] Jan, 2013 [facility] [place] [facility] [address] [id number] [place] [address] Jan, 2013 [facility] [place] [facility] [address] [id number] [place] [address] Jan, 2013 [facility] [place] [facility] [address] [id number] [place] [address] Jan, 2013 [facility] [place] [facility] [address] [id number] [place] [address] Dec, [facility] [place] [facility] [address] [id number] [place] [address] Dec, [facility] [place] [facility] [address] [id number] [place] [address] Nov, [facility] [place] [facility] [address] [id number] [place] [address] Nov, [facility] [place] [facility] [address] [id number] [place] [address] Nov, [facility] [place] [facility] [address] [id number] [place] [address] Nov, [facility] [place] [facility] [address] [id number] [place] [address] Nov, [facility] [place] [facility] [address] [id number] [place] [address] Nov, [facility] [place] [facility] [address] [id number] [place] [address] Nov, 2013 [facility] [place] [facility] [address] [id number] [place] [address] Nov, 2013 [facility] [place] [facility] [address] [id number] [place] [address] Nov, 2013 [facility] [place] [facility] [address] [id number] [place] [address] Nov, 2013 [facility] [place] [facility] [address] [id number] [place] [address] Nov, 2013 [facility] [place] [facility] [address] [id number] [place] [address] Nov, 2013 [facility] [place] [facility] [address] [id number] [place] [address] Oct, [facility] [place] [facility] [address] [id number] [place] [address] Oct, [facility] [place] [facility] [address] [id number] [place] [address] Oct, [facility] [place] [facility] [address] [id number] [place] [address] Oct, [facility] [place] [facility] [address] [id number] [place] [address] Oct, [facility] [place] [facility] [address] [id number] [place] [address] Oct, [facility] [place] [facility] [address] [id number] [place] [address] Oct, [facility] [place] [facility] [address] [id number] [place] [address] Oct, [facility] [place] [facility] [address] [id number] [place] [address] September, [facility] [place] [facility] [address] [id number] [place] [address] September, [facility] [place] [facility] [address] [id number] [place] [address] September, [facility] [place] [facility] [address] [id number] [place] [address] September, [facility] [place] [facility] [address] [id number] [place] [address] September, [facility] [place] [facility] [address] [id number] [place] [address] September, [facility] [place] [facility] [address] [id number] [place] [address] September, [facility] [place] [facility] [address] [id number] [place] [address] September, [facility] [place] [facility] [address] [id number] [place] [address] September, [facility] [place] [facility] [address] [id number] [place] [address] September, [facility] [place] [facility] [address] [id number] [place] [address] Aug, [facility] [place] [facility] [address] [id number] [place] [address] Aug, [facility] [place] [facility] [address] [id number] [place] [address] Aug, [facility] [place] [facility] [address] [id number] [place] [address] 30 Aug, 2013 [facility] [place] [facility] [address] [id number] [place] [address] Aug, [facility] [place] [facility] [address] [id number] [place] [address] Aug, [facility] [place] [facility] [address] [id number] [place] [address] 16 Aug, 2013 [facility] [place] [facility] [address] [id number] [place] [address] 16 Aug, 2013 [facility] [place] [facility] [address] [id number] [place] [address] 14 Aug, 2013 [facility] [place] [facility] [address] [id number] [place] [address] 14 Aug, 2013 [facility] [place] [facility] [address] [id number] [place] [address] 07 Aug, 2013 [facility] [place] [facility] [address] [id number] [place] [address] Aug, [facility] [place] [facility] [address] [id number] [place] [address] Aug, [facility] [place] [facility] [address] [id number] [place] [address] Aug, [facility] [place] [facility] [address] [id number] [place] [address] 24 Jul, 2013 [facility] [place] [facility] [address] [id number] [place] [address] 24 Jul, 2013 [facility] [place] [facility] [address] [id number] [place] [address] 05 Jul, 2013 [facility] [place] [facility] [address] [facility] [id number] [place] [address] 05 Jul, 2013 [facility] [place] [facility] [address] [id number] [place] [address] Jun, [facility] [place] [facility] [address] [id number] [place] [address] 17 Jun, 2013 [facility] [place] [facility] [address] [id number] [place] [address] 14 Jun, 2013 [facility] [place] [facility] [address] [id number] [place] [address] Jun, [facility] [place] [facility] [address] [id number] [place] [address] Jun, [facility] [place] [facility] [address] [id number] [place] [address] Jun, [facility] [place] [facility] [address] [id number] [place] [address] Jun, [facility] [place] [facility] [address] [id number] [place] [address] May, [facility] [place] [facility] [address] [id number] [place] [address] May, [facility] [place] [facility] [address] [id number] [place] [address] May, [facility] [place] [facility] [address] [id number] [place] [address] May, [facility] [place] [facility] [address] [id number] [place] [address] May, [facility] [place] [facility] [address] [id number] [place] [address] May, [facility] [place] [facility] [address] [id number] [place] [address] Apr, [facility] [place] [facility] [address] [id number] [place] [address] Apr, [facility] [place] [facility] [address] [id number], [place] [address] Mar, [facility] [place] [facility] [address] [id number], [place] [address] Mar, [facility] [place] [facility] [address] [id number] [place] [address] Mar, [facility] [place] [facility] [address] [id number] [place] [address] Mar, [facility] [place] [facility] [address] [id number] [place] [address] Mar, [facility] [place] [facility] [address] [id number] [place] [address] Mar, [facility] [address] [id number] [place] [address] Feb, [facility] [place] [facility] [address] [id number] [place] [address] Feb, [facility] [address] [id number] [place] [address] Feb, [facility] [place] [facility] [address] [id number] [place] [address] Feb, [facility] [place] [facility] [address] [id number] [place] [address] Feb, [facility] [place] [facility] [address] [id number] [place] [address] Jan, [facility] [place] [facility] [address] [id number] [place] [address] Dec, [facility] [place] [facility] [address] [id number] [place] [address] Dec, [facility] [place] [facility] [address] [id number] [place] [address] Oct, [facility] [place] [facility] [address] [facility] [id number] [place] [address] Oct, [facility] [place] [facility] [address] [id number] [place] [address] Oct, [facility] [place] [facility] [address] [id number] [place] [address] September, [facility] [place] [facility] [address] [id number] [place] [address] September, [facility] [place] [facility] [address] [id number] [place] [address] Aug, [facility] [place] [facility] [address] [id number] [place] [address] Aug, [facility] [place] [facility] [address] [id number] [place] [address] Jul, [facility] [address] [id number] [place] [address] May, [facility] [place] [facility] [address] [id number] [place] [address] May, [facility] [address] [id number] [place] [address] Apr, [facility] [address] [id number] [place] [address] Apr, [facility] [address] [id number] [place] [address] Apr, [facility] [address] [id number] [place] [address] Apr, [facility] [address] [id number] [place] [address] Apr, [facility] [address] [id number] [place] [address] Apr, [facility] [address] [id number] [place] [address] Apr, [facility] [address] [id number] [place] [address] Apr, [facility] [place] [facility] [address] [id number] [place] [address] Mar, [facility] [place] [facility] [address] [id number] [place] [address] Mar, [facility] [place] [facility] [address] [id number] [place] [address] Feb, [facility] [place] [facility] [address] [id number] [place] [address] Feb, [facility] [place] [facility] [address] [id number] [place] [address] Feb, [facility] [place] [facility] [address] [id number] [place] [address] Jan, [facility] [place] [facility] [address] [id number] [place] [address] Jan, [facility] [place] [facility] [address] [id number] [place] [address] Dec, [facility] [place] [facility] [address] [id number] [place] [address] Dec, [facility] [place] [facility] [address] [id number] [place] [address] Dec, [facility] [place] [facility] [address] [id number] [place] [address] Dec, [facility] [place] [facility] [address] [id number] [place] [address] Nov, [facility] [place] [facility] [address] [id number] [place] [address] Nov, [facility] [place] [facility] [address] [id number] [place] [address] Nov, [facility] [place] [facility] [address] [id number] [place] [address] September, [facility] [place] [facility] [address] [id number] [place] [address] September, [facility] [place] [facility] [address] [id number] [place] [address] September, [facility] [place] [facility] [address] [id number] [place] [address] Aug, [facility] [place] [facility] [address] [id number] [place] [address] Jun, [facility] [place] [facility] [address] [id number] [place] [address] May, [facility] [place] [facility] [address] [id number] [address] 14 Apr, 2011 [facility] [address] [facility] [id number], [place] [address] Apr, [facility] [address] [facility] [id number], [place] [address] Apr, [facility] [address] [facility] [id number], [place] [address] Mar, [facility] [address] [facility] [id number], [place] [address] Mar, [facility] [id number], [place] [address] Feb, [facility] [address] [id number], [place] [address] Feb, [facility] [id number], [place] [address] Feb, [facility] [id number], [place] [address] Feb, [facility] [id number], [place] [address] Nov, [facility] [address] [id number], [place] [address] Oct, IMMUNIZATIONS No Known Immunizations SOCIAL HISTORY Never Assessed REASON FOR VISIT Controlled Med Refill 04/18 PLAN OF CARE VITAL SIGNS MEDICATIONS Medication [...] only Hospitalization History sepsis at [facility] 08/2017 Hospitalization History pancreatitis 03/2018
--- OUTSIDE RECORDS SUMMARY | 2018-10-24 13:59 | XMS REPORT | Continuity of Care Document ---
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 VEHICLE CREWMAN, JENNIFER S 493.92 ASTHMA (ACUTE) EXACERBATION 08/12/2013 MARIAELENA EXPEDITIONARY FIGHTING VEHICLE CREWMAN, JENNIFER S 601.9 PROSTATITIS UNSPECIFIED 08/12/2013 MADL EXPEDITIONARY FIGHTING VEHICLE CREWMAN, VICKY L 493.92 ASTHMA (ACUTE) EXACERBATION 08/12/2013 MADL EXPEDITIONARY FIGHTING VEHICLE CREWMAN, VICKY L 601.9 PROSTATITIS UNSPECIFIED 08/12/2013 MARIAELENA EXPEDITIONARY FIGHTING VEHICLE CREWMAN, JENNIFER S 493.92 ASTHMA (ACUTE) EXACERBATION 08/12/2013 MARIAELENA EXPEDITIONARY FIGHTING VEHICLE CREWMAN, JENNIFER S 601.9 PROSTATITIS UNSPECIFIED 08/12/2013 MARIAELENA EXPEDITIONARY FIGHTING VEHICLE CREWMAN, JENNIFER S 493.92 ASTHMA (ACUTE) EXACERBATION 08/12/2013 MARIAELENA EX[employer]ITION[employer] FIGHTING VEHICLE CREWMAN, JENNIFER S 601.9 PROSTATITIS UNSPECIFIED 09/04/2013 JOSE LUIS ELLER MD 278.00 OBESITY 09/04/2013 JOSE LUIS ELLER MD 780.52 INSOMNIA UNSPECIFIED 09/04/2013 MYCHAL WALDEN, SIDNEY K 278.00 OBESITY 09/04/2013 MYCHAL WALDEN, SIDNEY K 780.52 INSOMNIA UNSPECIFIED 09/04/2013 MARIAELENA [employer] FIGHTING VEHICLE CREWMAN, JENNIFER S 278.00 OBESITY 09/04/2013 MARIAELENA EXPEDITIONARY FIGHTING VEHICLE CREWMAN, JENNIFER S 780.52 INSOMNIA UNSPECIFIED 09/04/2013 MADL EXPEDITIONARY FIGHTING VEHICLE CREWMAN, VICKY L 278.00 OBESITY 09/04/2013 MADL EXPEDITIONARY FIGHTING VEHICLE CREWMAN, VICKY L 780.52 INSOMNIA UNSPECIFIED 09/04/2013 MARIAELENA EXPEDITION[employer] FIGHTING VEHICLE CREWMAN, JENNIFER S 278.00 OBESITY 09/04/2013 MARIAELENA EXPEDITIONARY FIGHTING VEHICLE CREWMAN, JENNIFER S 780.52 INSOMNIA UNSPECIFIED 09/04/2013 MARIAELENA EXPEDITION[employer] FIGHTING VEHICLE CREWMAN, JENNIFER S 278.00 OBESITY 09/04/2013 MARIAELENA EXPEDITION[employer] FIGHTING VEHICLE CREWMAN, JENNIFER S 780.52 INSOMNIA UNSPECIFIED 11/11/2013 MARIAELENA EXPEDITION[employer] FIGHTING VEHICLE CREWMAN, JENNIFER S 564.00 CONSTIPATION 11/11/2013 MARIAELENA EXPEDITIONARY FIGHTING VEHICLE CREWMAN, JENNIFER S 799.02 HYPOXEMIA 11/11/2013 MADL EXPEDITIONARY FIGHTING VEHICLE CREWMAN, VICKY L 564.00 CONSTIPATION 11/11/2013 VICKY HODGSON APRN L 799.02 HYPOXEMIA 11/11/2013 MARIA[employer] EXPEDITIONARY FIGHTING VEHICLE CREWMANYOKASTAJENNIFER S 564.00 CONSTIPATION 11/11/2013 MARIAELENAYOKASTA HALL APRNNDA S 799.02 HYPOXEMIA 11/11/2013 MARIAELENA YOKASTA SOTONDA S 564.00 CONSTIPATION 11/11/2013 [employer] EXPEDITIONARY FIGHTING VEHICLE CREWMANYOKASTAJENNIFER S 799.02 HYPOXEMIA 11/14/2013 RUSSELL MCKENNA MAINTENANCE SUPERINTENDENT Ot 715.36 LOC OSTEOARTH NOS-L/LEG 11/14/2013 RUSSELL MCKENNA MAINTENANCE SUPERINTENDENT Ot 722.52 LUMB/LUMBOSAC DISC DEGEN 11/14/2013 RUSSELL MCKENNA MAINTENANCE SUPERINTENDENT Ot V57.1 PHYSICAL THERAPY NEC 01/07/2014 VICKY HODGSON APRN L 462 ACUTE PHARYNGITIS 01/07/2014 MARIAELENA [employer] FIGHT[employer] VEHICLE CREWMAN, JENNIFER S 462 ACUTE PHARYNGITIS 01/07/2014 MARIAELENA EXPED[employer] FIGHTING VEHICLE CREWMAN, JENNIFER S 462 ACUTE PHARYNGITIS 03/13/2014 MARIAELENA EXPEDITIONARY FIGHTING VEHICLE CREWMANYOKASTAJENNIFER S V03.82 PPV23 (PNEUMOVAX) DX 03/13/2014 MARIAELENA EX[employer] FIGHTING VEHICLE CREWMAN, JENNIFER S V04.81 FLU SHOT 03/13/2014 MARIA[employer] EXPED[employer] FIGHTING VEHICLE CREWMAN, JENNIFER S V03.82 PPV23 (PNEUMOVAX) DX 03/13/2014 MARIAELENA EXPEDITIONARY FIGHTING VEHICLE CREWMANYOKASTAJENNIFER S V04.81 FLU SHOT 08/18/2014 MARIA[employer]NA EXPEDITIONARY FIGHTING VEHICLE CREWMANYOKASTAJENNIFER S 110.1 ONYCHOMYCOSIS 08/24/2016 JENNIFER FERRELLP Ot Z12.2 ENCNTR SCREEN FOR MALIGNANT NEOPLASM OF 08/24/2016 JENNIFER FERRELL MAINTENANCE SUPERINTENDENT Ot Z12.2 ENCNTR SCREEN FOR MALIGNANT NEOPLASM OF 08/25/2016 JENNIFER FERRELL MAINTENANCE SUPERINTENDENT Ot Z12.2 ENCNTR SCREEN FOR MALIGNANT NEOPLASM OF 08/25/2016 JENNIFER FERRELL MAINTENANCE SUPERINTENDENT Ot F17.210 NICOTINE DEPENDENCE, CIGARETTES, UNCOMPL 08/25/2016 JENNIFER FERRELLP Ot Z12.2 ENCNTR SCREEN FOR MALIGNANT NEOPLASM OF 09/14/2016 JENNIFER FERRELLP Ot F17.210 NICOTINE DEPENDENCE, CIGARETTES, UNCOMPL 09/14/2016 JENNIFER FERRELL Ot Z12.2 ENCNTR SCREEN FOR MALIGNANT NEOPLASM OF 01/04/2017 ASDE JARAMILLO, KATE Reese Ot M75.111 INCOMPLETE ROTATR-CUFF TEAR/RUPTR OF R S 01/23/2017 SCARLET WHITFIELD EXPEDITIONARY FIGHTING VEHICLE CREWMAN Ot G47.30 SLEEP APNEA, UNSPECIFIED 01/23/2017 SCARLET WHITFIELD APRN Ot G47.30 SLEEP APNEA, UNSPECIFIED 01/24/2017 SCARLET WHITFIELD EXPEDITIONARY FIGHTING VEHICLE CREWMAN Ot G47.30 SLEEP APNEA, UNSPECIFIED 01/24/2017 SCARLET WHITFIELD APRN Ot G47.33 OBSTRUCTIVE SLEEP APNEA (ADULT) (PEDIATR 01/24/2017 SCARLET WHITFIELD APRN Ot I10 ESSENTIAL (PRIMARY) HYPERTENSION 01/25/2017 DAT JARAMILLO, ISIAH Townsend Ot V58.69 OTH MED,LT,CURRENT USE 01/25/2017 ISIAH DAUGHERTY MD Ot V58.83 ENCOUNTER FOR THERAPEUTIC DRUG MONITORIN 01/25/2017 JENNIFER FERRELL Ot F17.210 NICOTINE DEPENDENCE, CIGARETTES, UNCOMPL 01/25/2017 JENNIFER FERRELL Ot Z12.2 ENCNTR SCREEN FOR MALIGNANT NEOPLASM OF 01/25/2017 SADE JARAMILLO, KATE Reese Ot M75.111 INCOMPLETE ROTATR-CUFF TEAR/RUPTR OF R S 02/01/2017 SCARLET WHITFIELD EXPEDITIONARY FIGHTING VEHICLE CREWMAN Ot E66.01 MORBID (SEVERE) OBESITY DUE TO EXCESS CA 02/01/2017 SCARLET WHITFIELD EXPEDITIONARY FIGHTING VEHICLE CREWMAN Ot J42 UNSPECIFIED CHRONIC BRONCHITIS 02/01/2017 SCARLET WHITFIELD EXPEDITIONARY FIGHTING VEHICLE CREWMAN Ot J45.909 UNSPECIFIED ASTHMA, UNCOMPLICATED 02/01/2017 SCARLET WHITFIELD EXPEDITIONARY FIGHTING VEHICLE CREWMAN Ot R06.02 SHORTNESS OF BREATH 02/01/2017 SCARLET WHITFIELD APRN Ot R09.02 HYPOXEMIA 02/01/2017 SCARLET WHITFIELD EXPEDITIONARY FIGHTING VEHICLE CREWMAN Ot Z72.0 TOBACCO USE 03/15/2017 SCARLET WHITFIELD APRN Ot E66.01 MORBID (SEVERE) OBESITY DUE TO EXCESS CA 03/15/2017 SCARLET WHITFIELD EXPEDITIONARY FIGHTING VEHICLE CREWMAN Ot J42 UNSPECIFIED CHRONIC BRONCHITIS 03/15/2017 SCARLET WHTIFIELD APRN Ot J45.909 UNSPECIFIED ASTHMA, UNCOMPLICATED 03/15/2017 SCARLET WHITFIELD APRN Ot R06.02 SHORTNESS OF BREATH 03/15/2017 SCARLET WHITFIELD APRN Ot R09.02 HYPOXEMIA 03/15/2017 SCARLET WHITFIELD APRN Ot Z72.0 TOBACCO USE 03/20/2017 KATE STUART MD, Ot S43.491A OTHER SPRAIN OF RIGHT SHOULDER JOINT, IN 03/20/2017 KATE STUART MD, Ot X58.XXXA EXPOSURE TO OTHER SPECIFIED FACTORS, INI 03/20/2017 KATE STUART MD, Ot Y99.8 OTHER EXTERNAL CAUSE STATUS 03/20/2017 KATE STUART MD, Ot Z01.818 ENCOUNTER FOR OTHER PREPROCEDURAL EXAMIN 03/22/2017 KATE STUART MD, Ot E66.01 MORBID [...] 03/22/2017 KATE STUART MD, Ot Z79.899 OTHER [facility] (CURRENT) DRUG THERAPY 03/22/2017 KATE STUART MD, [...] 03/23/2017 KATE STUART MD, Ot Z79.899 OTHER [facility] (CURRENT) DRUG THERAPY 03/23/2017 KATE STUART MD, [...] 03/24/2017 KATE STUART MD, Ot Z79.899 OTHER [facility] (CURRENT) DRUG THERAPY 03/24/2017 KATE STUART MD, Ot Z82.49 FAMILY HX OF ISCHEM HEART DIS AND OTH DI 03/24/2017 KATE STUART MD, Ot Z96.643 PRESENCE OF ARTIFICIAL HIP JOINT, BILATE 03/26/2017 KATE STUART MD, Ot S43.491A OTHER SPRAIN OF RIGHT SHOULDER JOINT, IN 03/26/2017 KATE STUART MD, Ot X58.XXXA EXPOSURE TO OTHER SPECIFIED FACTORS, INI 03/26/2017 KATE STUART MD, Ot Y99.8 OTHER EXTERNAL CAUSE STATUS 03/26/2017 KATE STUART MD Ot Z01.818 ENCOUNTER FOR OTHER PREPROCEDURAL EXAMIN 10/24/2017 KATE STUART MD, Ot Z01.818 ENCOUNTER FOR OTHER PREPROCEDURAL EXAMIN 10/24/2017 KATE STUART MD, Ot Z01.818 ENCOUNTER FOR OTHER PREPROCEDURAL EXAMIN 11/01/2017 KATE STUART MD, Ot I10 ESSENTIAL (PRIMARY) HYPERTENSION 11/01/2017 KATE STUART MD Ot J44.9 CHRONIC OBSTRUCTIVE PULMONARY DISEASE, U 11/01/2017 KATE STUART MD Ot M22.41 CHONDROMALACIA PATELLAE, RIGHT KNEE 11/01/2017 KATE STUART MD Ot M23.8X1 OTHER INTERNAL DERANGEMENTS OF RIGHT KNE 11/01/2017 KATE STUART MD Ot Z79.899 OTHER BROILER CHEF OR COOK (CURRENT) DRUG THERAPY 11/01/2017 KATE STUART MD Ot Z96.643 PRESENCE OF ARTIFICIAL HIP JOINT, BILATE 11/02/2017 KATE STUART MD Ot I10 ESSENTIAL (PRIMARY) HYPERTENSION 11/02/2017 KATE STUART MD Ot J44.9 CHRONIC OBSTRUCTIVE PULMONARY DISEASE, U 11/02/2017 KATE STUART MD Ot M22.41 CHONDROMALACIA PATELLAE, RIGHT KNEE 11/02/2017 KATE STUART MD Ot M23.8X1 OTHER INTERNAL DERANGEMENTS OF RIGHT KNE 11/02/2017 KATE STUART MD Ot Z79.899 OTHER [facility] (CURRENT) DRUG THERAPY 11/02/2017 KATE STUART MD Ot Z96.643 PRESENCE OF ARTIFICIAL HIP JOINT, BILATE 03/24/2018 DARSHAN ATKINSON MD Ot D64.9 ANEMIA, UNSPECIFIED 03/24/2018 DRASHAN ATKINSON MD Ot D69.6 THROMBOCYTOPENIA, UNSPECIFIED 03/24/2018 [...] OBSTRUCTIVE PULMONARY DISEASE W 03/24/2018 DARSHAN ATKINSON MD Ot J90 PLEURAL EFFUSION, NOT ELSEWHERE CLASSIFI [...] I10 ESSENTIAL (PRIMARY) HYPERTENSION 03/27/2018 DARSHAN ATKINSON MD Ot J44.1 CHRONIC OBSTRUCTIVE PULMONARY DISEASE W 03/27/2018 DARSHAN ATKINSON MD, Ot J90 PLEURAL EFFUSION, NOT ELSEWHERE CLASSIFI 03/27/2018 DARSHAN ATKINSON MD, Ot K85.90 ACUTE PANCREATITIS WITHOUT NECROSIS OR I 03/27/2018 DARSHAN ATKINSON MD, Ot M19.91 PRIMARY OSTEOARTHRITIS, UNSPECIFIED SITE 03/27/2018 DARSHAN ATKINSON MD, Ot M54.5 LOW BACK PAIN 03/27/2018 DARSHAN ATKINSON MD, Ot R63.4 ABNORMAL WEIGHT LOSS 03/27/2018 DARSHAN ATKINSON MD, Ot Z87.891 PERSONAL HISTORY OF NICOTINE DEPENDENCE 03/27/2018 DARSHAN ATKINSON MD, Ot Z90.49 ACQUIRED ABSENCE OF OTHER SPECIFIED PART 03/27/2018 DARSHAN ATKINSON MD, Ot Z96.643 PRESENCE OF ARTIFICIAL HIP JOINT, BILATE 03/27/2018 DARSHAN ATKINSON MD Ot Z98.84 BARIATRIC SURGERY STATUS 03/28/2018 DARSHAN ATKINSON MD Ot A41.9 SEPSIS, UNSPECIFIED ORGANISM 03/28/2018 DARSHAN ATKINSON MD Ot D64.9 ANEMIA, UNSPECIFIED 03/28/2018 DARSHAN ATKINSON MD Ot D69.6 THROMBOCYTOPENIA, UNSPECIFIED 03/28/2018 DARSHAN ATKINSON MD Ot D72.828 OTHER ELEVATED WHITE BLOOD CELL COUNT 03/28/2018 DARSHAN ATKINSON MD Ot E27.9 DISORDER OF ADRENAL GLAND, UNSPECIFIED 03/28/2018 DARSHAN ATKINSON MD Ot E87.1 HYPO-OSMOLALITY AND HYPONATREMIA 03/28/2018 DARSHAN ATKINSON MD Ot F41.9 ANXIETY DISORDER, UNSPECIFIED 03/28/2018 DARSHAN ATKINSON MD Ot F51.01 PRIMARY INSOMNIA 03/28/2018 DARSHAN ATKINSON MD Ot G47.30 SLEEP APNEA, UNSPECIFIED 03/28/2018 DARSHAN ATKISNON MD Ot I10 ESSENTIAL (PRIMARY) HYPERTENSION 03/28/2018 DARSHAN ATKINSON MD Ot I87.2 VENOUS INSUFFICIENCY (CHRONIC) (PERIPHER 03/28/2018 DARSHAN ATKINSON MD Ot J18.9 PNEUMONIA, UNSPECIFIED ORGANISM 03/28/2018 DARSHAN ATKINSON MD Ot J44.0 CHRONIC OBSTRUCTIVE PULMON DISEASE W ACU 03/28/2018 DARSHAN ATKINSON MD, Ot J44.1 CHRONIC OBSTRUCTIVE PULMONARY DISEASE W 03/28/2018 DARSHAN ATKINSON MD, Ot J90 PLEURAL EFFUSION, NOT ELSEWHERE CLASSIFI 03/28/2018 DARSHAN ATKINSON MD, Ot K57.90 DVRTCLOS OF INTEST, PART UNSP, W/O PERF 03/28/2018 DARSHAN ATKINSON MD, Ot K85.90 ACUTE PANCREATITIS WITHOUT NECROSIS OR I 03/28/2018 DARSHAN ATKINSON MD, Ot K85.92 ACUTE PANCREATITIS WITH INFECTED NECROSI 03/28/2018 DARSHAN ATKINSON MD, Ot M19.91 PRIMARY OSTEOARTHRITIS, UNSPECIFIED SITE 03/28/2018 DARSHAN ATKINSON MD, Ot M54.5 LOW BACK PAIN 03/28/2018 DARSHAN ATKINSON MD, Ot N17.9 ACUTE KIDNEY FAILURE, UNSPECIFIED 03/28/2018 DARSHAN ATKINSON MD, Ot R00.0 TACHYCARDIA, UNSPECIFIED 03/28/2018 DARSHAN ATKINSON MD, Ot R63.4 ABNORMAL WEIGHT LOSS 03/28/2018 DARSHAN ATKINSON MD, Ot Z87.891 PERSONAL HISTORY OF NICOTINE DEPENDENCE 03/28/2018 DARSHAN ATKINSON MD, Ot Z90.49 ACQUIRED ABSENCE OF OTHER SPECIFIED PART 03/28/2018 DARSHAN ATKINSON MD, Ot Z96.643 PRESENCE OF ARTIFICIAL HIP JOINT, BILATE 03/28/2018 DARSHAN ATKINSON MD, Ot Z98.84 BARIATRIC SURGERY STATUS 04/06/2018 SIDNEY HORTA DO Ot I10 ESSENTIAL (PRIMARY) HYPERTENSION 04/06/2018 CATHERINE HORTA DOA David Ot J44.1 CHRONIC OBSTRUCTIVE PULMONARY DISEASE W 04/06/2018 CATHERINE HORTA DOA K Ot M54.9 DORSALGIA, UNSPECIFIED 04/06/2018 CATHERINE HORTA DOA K Ot R26.81 UNSTEADINESS ON FEET 04/06/2018 CATHERINE HORTA DOA K Ot R53.1 WEAKNESS 04/06/2018 CATHERINE HORTA DOA K Ot R60.0 LOCALIZED EDEMA 04/06/2018 SIDNEY HORTA DO Ot Z60.2 PROBLEMS RELATED TO LIVING ALONE 04/06/2018 CATHERINE HORTA DOA K Ot Z87.01 PERSONAL HISTORY OF PNEUMONIA (RECURRENT 04/06/2018 CATHERINE HORTA DOA K Ot Z87.19 PERSONAL HISTORY OF OTHER DISEASES OF TH 04/06/2018 CATHERINE HORTA DOA K Ot Z87.891 PERSONAL HISTORY OF NICOTINE DEPENDENCE 04/06/2018 CATHERINE HORTA DOA K Ot Z98.84 BARIATRIC SURGERY STATUS 04/06/2018 CATHERINE HORTA DOA K Ot B37.2 CANDIDIASIS OF SKIN AND NAIL 04/06/2018 MYCHAL WALDEN SIDNEY K Ot E66.01 MORBID (SEVERE) OBESITY DUE TO EXCESS CA 04/06/2018 MYCHAL WALDEN SIDNEY K Ot E87.5 HYPERKALEMIA 04/06/2018 MYCHAL WALDEN SIDNEY K Ot I10 ESSENTIAL (PRIMARY) HYPERTENSION 04/06/2018 MYCHAL WALDEN SIDNEY K Ot J44.1 CHRONIC OBSTRUCTIVE PULMONARY DISEASE W 04/06/2018 MYCHAL WALDEN SIDNEY K Ot M54.9 DORSALGIA, UNSPECIFIED 04/06/2018 MYCHAL WALDEN SIDNEY K Ot R26.81 UNSTEADINESS ON FEET 04/06/2018 MYCHAL WALDEN SIDNEY K Ot R53.1 WEAKNESS 04/06/2018 MYCHAL WALDEN SIDNEY K Ot R60.0 LOCALIZED EDEMA 04/06/2018 MYCHAL WALDEN SIDNEY K Ot Z60.2 PROBLEMS RELATED TO LIVING ALONE 04/06/2018 MYCHAL WALDNE SINDEY K Ot Z68.43 BODY MASS INDEX (BMI) 50-59.9, ADULT 04/06/2018 MYCHAL WALDEN SIDNEY K Ot Z87.01 PERSONAL HISTORY OF PNEUMONIA (RECURRENT 04/06/2018 MYCHAL WALDEN SIDNEY K Ot Z87.19 PERSONAL HISTORY OF OTHER DISEASES OF 04/06/2018 MYCHAL WALDEN SIDNEY Hernandez Ot Z87.891 PERSONAL HISTORY OF NICOTINE DEPENDENCE 04/06/2018 MYCHAL WALDEN SIDNEY K Ot Z98.84 BARIATRIC SURGERY STATUS 04/18/2018 CATHY CASTELLANOS MD Ot D50.9 IRON DEFICIENCY ANEMIA, UNSPECIFIED 04/18/2018 CATHY CASTELLANOS MD, Ot E88.09 OTH DISORDERS OF PLASMA-PROTEIN METABOLI 04/18/2018 CATHY CASTELLANOS MD, Ot F41.9 ANXIETY DISORDER, UNSPECIFIED 04/18/2018 CATHY CASTELLANOS MD, Ot G47.00 INSOMNIA, UNSPECIFIED 04/18/2018 CATHY CASTELLANOS MD, Ot G47.30 SLEEP APNEA, UNSPECIFIED 04/18/2018 CATHY CASTELLANOS MD Ot G72.89 OTHER SPECIFIED MYOPATHIES 04/18/2018 CATHY CASTELLANOS MD Ot I10 ESSENTIAL (PRIMARY) HYPERTENSION 04/18/2018 CATHY CASTELLANOS MD Ot J44.1 CHRONIC OBSTRUCTIVE PULMONARY DISEASE W 04/18/2018 CATHY CASTELLANOS MD Ot K59.00 CONSTIPATION, UNSPECIFIED 04/18/2018 CATHY CASTELLANOS MD Ot M54.9 DORSALGIA, UNSPECIFIED 04/18/2018 CATHY CASTELLANOS MD Ot R60.0 LOCALIZED EDEMA 04/18/2018 CATHY CASTELLANOS MD Ot Z22.322 CARRIER OR SUSPECTED CARRIER OF METHICIL 04/18/2018 CATHY CASTELLANOS MD Ot Z87.891 PERSONAL HISTORY OF NICOTINE DEPENDENCE 10/17/2018 LEXI JARAMILLO, MOMO Ot Z01.818 ENCOUNTER FOR OTHER PREPROCEDURAL EXAMIN 10/23/2018 JENNIFER FERRELL Ot F17.210 NICOTINE DEPENDENCE, CIGARETTES, UNCOMPL 10/23/2018 JENNIFER FERRELL Ot Z12.2 ENCNTR SCREEN FOR MALIGNANT NEOPLASM OF 10/23/2018 SADE JARAMILLO, KATE Reese Ot M75.111 INCOMPLETE ROTATR-CUFF TEAR/RUPTR OF R S 10/23/2018 SCARLET WHITFIELD APRN Ot E66.01 MORBID (SEVERE) OBESITY DUE TO EXCESS CA 10/23/2018 SCARLET WHITFIELD APRN Ot J42 UNSPECIFIED CHRONIC BRONCHITIS 10/23/2018 SCARLET WHITFIELD APRN Ot J45.909 UNSPECIFIED ASTHMA, UNCOMPLICATED 10/23/2018 SCARLET WHITFIELD APRN Ot R06.02 SHORTNESS OF BREATH 10/23/2018 SCARLET WHITFIELD APRN Ot R09.02 HYPOXEMIA 10/23/2018 SCARLET WHITFIELD APRN Ot Z72.0 TOBACCO USE Procedures Code [place] [address] ROUTINE VENIPUNCTURE 10/12/2012 10594 CBC 10/12/2012 15965 LIPID PANEL 10/12/2012 53022 CMP 10/12/2012 9912256 GFR CALC (RESULT ONLY) 10/12/2012 59373 PSA TOTAL 10/12/2012 G0008 FLU ADMINISTRATION (MEDICARE ONLY) 02/27/2013 16538 UA LONG DIP 06/24/2013 60806 JOINT INJECTION- LARGE JOINT (SPECIFY MEDCIN DESCRIPTION) 10/10/2013 29590 ROUTINE VENIPUNCTURE 11/11/2013 63317 CBC 11/11/2013 [id number] GFR CALC (RESULT ONLY) 11/11/2013 50562 CMP 11/11/2013 51118 LIPID PANEL 11/11/2013 18437 TSH 11/11/2013 G0008 FLU ADMINISTRATION (MEDICARE ONLY) 03/13/2014 78926 [employer] 03/19/2014 10452 ROUTINE VENIPUNCTURE 08/18/2014 22961 [employer] 08/18/[id number] GFR CALC (RESULT ONLY) 08/18/2014 70186 BMP 08/18/2014 [id number] INSERTION OF INFUSION DEV INTO SUP VENA 03/24/2018 Results Test Result Range Methicillin resistant Staphylococcus aureus (MRSA) screening culture - 03/20/17 12:00 Methicillin resistant Staphylococcus aureus (MRSA) screening culture NEG NRG [facility] - 08/16/17 17:00 GLUCOSE 112 mg/dL 65-99 UREA NITROGEN (BUN) 21 mg/dL 7-25 CREATININE 1.16 mg/dL 0.70-1.25 eGFR NON-AFR. FIJIAN 65 mL/min/1.73m2 > OR=60 eGFR 75 mL/min/1.73m2 [...] 140-400 MPV 11.5 fL 7.5-12.5 ABSOLUTE NEUTROPHILS 17998 cells/uL 8728-7602 ABSOLUTE LYMPHOCYTES 918 cells/uL 850-3900 ABSOLUTE MONOCYTES 658 cells/uL 200-950 ABSOLUTE EOSINOPHILS 14 cells/uL 15-500 ABSOLUTE BASOPHILS 55 cells/uL 0-200 NEUTROPHILS 88 % NRG LYMPHOCYTES 6.7 % NRG MONOCYTES 4.8 % NRG EOSINOPHILS 0.1 % NRG BASOPHILS 0.4 % NRG COMMENT(S) NRG Methicillin resistant Staphylococcus aureus (MRSA) screening culture - 10/24/17 12:04 MRSA SCREEN RESULT MRSA ISOLATED NRG [...] Automated erythrocyte mean corpuscular hemoglobin concentration measurement (mass/volume) 35 g/dL 32-36 Automated erythrocyte distribution width ratio 16.6 % 10.0- 14.5 Automated blood platelet count (count/volume) 118 10*3/uL [...] Blood monocytes automated count (number/volume) 1.6 10*3 0.0- 1.0 Automated eosinophil count 0.0 10*3/uL 0.0-0.3 Automated blood basophil count (count/volume) 0.1 10*3/uL 0.0-0.1 Blood lactic acid measurement (moles/volume) - 03/20/18 11:45 Blood lactic acid measurement (moles/volume) 1.23 mmol/L 0.50- 2.00 PT panel in platelet poor plasma by [...] Serum or plasma aspartate aminotransferase measurement (enzymatic activity/volume) 28 U/L 5-34 Serum or plasma alanine aminotransferase measurement (enzymatic activity/volume) 43 U/L 0-55 Serum or plasma protein [...] or plasma troponin i.cardiac measurement (mass/volume) < ng/mL <0.30 Serum or plasma amylase measurement (enzymatic activity/volume) - 03/20/18 11:45 Serum or plasma amylase measurement (enzymatic activity/volume) 41 U/L 25-125 Lipase - 03/20/18 11:45 Lipase 16 [...] Automated erythrocyte mean corpuscular hemoglobin concentration measurement (mass/volume) 34 g/dL 32-36 Automated erythrocyte distribution width ratio 16.7 % 10.0- 14.5 Automated blood platelet count (count/volume) 114 10*3/uL [...] Blood monocytes automated count (number/volume) 1.7 10*3 0.0- 1.0 Automated eosinophil count 0.1 10*3/uL 0.0-0.3 Automated [...] Serum or plasma aspartate aminotransferase measurement (enzymatic activity/volume) 29 U/L 5-34 Serum or plasma alanine aminotransferase measurement (enzymatic activity/volume) 37 U/L 0-55 Serum or plasma protein [...] Automated erythrocyte mean corpuscular hemoglobin concentration measurement (mass/volume) 33 g/dL 32-36 Automated erythrocyte distribution width ratio 16.7 % 10.0- 14.5 Automated blood platelet count (count/volume) 138 10*3/uL [...] Serum or plasma aspartate aminotransferase measurement (enzymatic activity/volume) 33 U/L 5-34 Serum or plasma alanine aminotransferase measurement (enzymatic activity/volume) 32 U/L 0-55 Serum or plasma protein [...] Automated erythrocyte mean corpuscular hemoglobin concentration measurement (mass/volume) 34 g/dL 32-36 Automated erythrocyte distribution width ratio 16.8 % 10.0- 14.5 Automated blood platelet count (count/volume) 150 10*3/uL [...] Serum or plasma aspartate aminotransferase measurement (enzymatic activity/volume) 36 U/L 5-34 Serum or plasma alanine aminotransferase measurement (enzymatic activity/volume) 30 U/L 0-55 Serum or plasma protein [...] Automated erythrocyte mean corpuscular hemoglobin concentration measurement (mass/volume) 34 g/dL 32-36 Automated erythrocyte distribution width ratio 16.8 % 10.0- 14.5 Automated blood platelet count (count/volume) 149 10*3/uL [...] Automated erythrocyte mean corpuscular hemoglobin concentration measurement (mass/volume) 34 g/dL 32-36 Automated erythrocyte distribution width ratio 16.4 % 10.0- 14.5 Automated blood platelet count (count/volume) 185 10*3/uL [...] Serum or plasma aspartate aminotransferase measurement (enzymatic activity/volume) 40 U/L 5-34 Serum or plasma alanine aminotransferase measurement (enzymatic activity/volume) 34 U/L 0-55 Serum or plasma protein [...] Automated erythrocyte mean corpuscular hemoglobin concentration measurement (mass/volume) 35 g/dL 32-36 Automated erythrocyte distribution width ratio 16.4 % 10.0- 14.5 Automated blood platelet count (count/volume) 193 10*3/uL [...] Blood monocytes automated count (number/volume) 1.8 10*3 0.0- 1.0 Automated eosinophil count 0.0 10*3/uL 0.0-0.3 Automated [...] Serum or plasma aspartate aminotransferase measurement (enzymatic activity/volume) 34 U/L 5-34 Serum or plasma alanine aminotransferase measurement (enzymatic activity/volume) 32 U/L 0-55 Serum or plasma protein [...] Automated erythrocyte mean corpuscular hemoglobin concentration measurement (mass/volume) 34 g/dL 32-36 Automated erythrocyte distribution width ratio 16.0 % 10.0- 14.5 Automated blood platelet count (count/volume) 167 10*3/uL [...] Blood monocytes automated count (number/volume) 1.4 10*3 0.0- 1.0 Automated eosinophil count 0.1 10*3/uL 0.0-0.3 Automated [...] Serum or plasma aspartate aminotransferase measurement (enzymatic activity/volume) 34 U/L 5-34 Serum or plasma alanine aminotransferase measurement (enzymatic activity/volume) 28 U/L 0-55 Serum or plasma protein [...] Automated erythrocyte mean corpuscular hemoglobin concentration measurement (mass/volume) 34 g/dL 32-36 Automated erythrocyte distribution width ratio 16.2 % 10.0- 14.5 Automated blood platelet count (count/volume) 176 10*3/uL [...] Blood monocytes automated count (number/volume) 1.1 10*3 0.0- 1.0 Automated eosinophil count 0.0 10*3/uL 0.0-0.3 Automated [...] Serum or plasma aspartate aminotransferase measurement (enzymatic activity/volume) 29 U/L 5-34 Serum or plasma alanine aminotransferase measurement (enzymatic activity/volume) 26 U/L 0-55 Serum or plasma protein [...] Automated erythrocyte mean corpuscular hemoglobin concentration measurement (mass/volume) 34 g/dL 32-36 Automated erythrocyte distribution width ratio 16.0 % 10.0- 14.5 Automated blood platelet count (count/volume) 197 10*3/uL [...] Blood monocytes automated count (number/volume) 1.3 10*3 0.0- 1.0 Automated eosinophil count 0.0 10*3/uL 0.0-0.3 Automated [...] Serum or plasma aspartate aminotransferase measurement (enzymatic activity/volume) 27 U/L 5-34 Serum or plasma alanine aminotransferase measurement (enzymatic activity/volume) 21 U/L 0-55 Serum or plasma protein measurement (mass/volume) 5.1 g/dL 6.4-8.2 Serum or plasma albumin measurement (mass/volume) 2.6 g/dL 3.2-4.5 CALCIUM CORRECTED 9.7 mg/dL 8.5-10.1 Complete blood count (CBC) with automated white blood cell (WBC) differential - 04/04/18 16:45 Blood leukocytes automated count (number/volume) 12.5 10*3/uL 4.3-11.0 Blood erythrocytes automated count (number/volume) 3.11 10*6/uL 4.35-5.85 Venous blood hemoglobin measurement (mass/volume) 9.3 g/dL 13.3-17.7 Blood hematocrit (volume fraction) 29 % 40-54 Automated erythrocyte mean corpuscular volume 93 [foz_us] 80-99 Automated erythrocyte mean corpuscular hemoglobin (mass per erythrocyte) 30 pg 25-34 Automated erythrocyte mean corpuscular hemoglobin concentration measurement (mass/volume) 32 g/dL 32-36 Automated erythrocyte distribution width ratio 15.2 % 10.0- 14.5 Automated blood platelet count (count/volume) 148 10*3/uL 130-400 Automated blood platelet mean volume measurement 11.0 [foz_us] 7.4-10.4 Automated blood neutrophils/100 leukocytes 88 % 42-75 Automated blood lymphocytes/100 leukocytes 6 % 12-44 Blood monocytes/100 leukocytes 6 % 0-12 Automated blood eosinophils/100 leukocytes 1 % 0-10 Automated blood basophils/100 leukocytes 0 % 0-10 Blood neutrophils automated count (number/volume) 10.9 10*3 1.8-7.8 Blood lymphocytes automated count (number/volume) 0.7 10*3 1.0-4.0 Blood monocytes automated count (number/volume) 0.7 10*3 0.0- 1.0 Automated eosinophil count 0.1 10*3/uL 0.0-0.3 Automated blood basophil count (count/volume) 0.0 10*3/uL 0.0-0.1 Blood manual differential performed detection - 04/04/18 16:45 Blood monocytes/100 leukocytes 3 % NRG Manual blood segmented neutrophils/100 leukocytes 94 % NRG Blood band neutrophils/100 leukocytes 0 % NRG Manual blood lymphocytes/100 leukocytes 3 % NRG Manual eosinophils/100 leukocytes in nose 0 % NRG Manual blood basophils/100 leukocytes 0 % NRG Blood hypochromia detection by light microscopy SLIGHT NRG Comprehensive metabolic panel - 04/04/18 16:45 Serum or plasma sodium measurement (moles/volume) 139 mmol/L 135-145 Serum or plasma potassium measurement (moles/volume) 3.5 mmol/L 3.6-5.0 Serum or plasma chloride measurement (moles/volume) 98 mmol/L 98-107 Carbon dioxide 28 mmol/L 21-32 Serum or plasma anion gap determination (moles/volume) 13 mmol/L 5-14 Serum or plasma urea nitrogen measurement (mass/volume) 13 mg/dL 7-18 Serum or plasma creatinine measurement (mass/volume) 0.97 mg/dL 0.60-1.30 Serum or plasma urea nitrogen/creatinine mass ratio 13 NRG Serum or plasma creatinine measurement with calculation of estimated glomerular filtration rate > NRG Serum or plasma glucose measurement (mass/volume) 94 mg/dL 70-105 Serum or plasma calcium measurement (mass/volume) 8.5 mg/dL 8.5-10.1 Serum or plasma total bilirubin measurement (mass/volume) 0.7 mg/dL 0.1-1.0 Serum or plasma alkaline phosphatase measurement (enzymatic activity/volume) 77 U/L 40-136 Serum or plasma aspartate aminotransferase measurement (enzymatic activity/volume) 25 U/L 5-34 Serum or plasma alanine aminotransferase measurement (enzymatic activity/volume) 13 U/L 0-55 Serum or plasma protein measurement (mass/volume) 5.5 g/dL 6.4-8.2 Serum or plasma albumin measurement (mass/volume) 2.6 g/dL 3.2-4.5 CALCIUM CORRECTED 9.6 mg/dL 8.5-10.1 Magnesium - 04/04/18 16:45 Magnesium 1.3 mg/dL 1.8-2.4 Serum or plasma lithium measurement (moles/volume) - 04/04/18 16:45 BNP level 38.0 pg/mL <100.0 THYROID STIMULATING HORMONE - 04/04/18 16:45 THYROID STIMULATING HORMONE 2.55 u[iU]/mL 0.35-4.94 Whole blood basic metabolic panel - 04/06/18 06:20 Serum or plasma sodium measurement (moles/volume) 138 mmol/L 135-145 Serum or plasma potassium measurement (moles/volume) 5.4 mmol/L 3.6-5.0 Serum or plasma chloride measurement (moles/volume) 97 mmol/L 98-107 Carbon dioxide 31 mmol/L 21-32 Serum or plasma anion gap determination (moles/volume) 10 mmol/L 5-14 Serum or plasma urea nitrogen measurement (mass/volume) 14 mg/dL 7-18 Serum or plasma creatinine measurement (mass/volume) 0.97 mg/dL 0.60-1.30 Serum or plasma urea nitrogen/creatinine mass ratio 14 NRG Serum or plasma creatinine measurement with calculation of estimated glomerular filtration rate > NRG Serum or plasma glucose measurement (mass/volume) 132 mg/dL 70-105 Serum or plasma calcium measurement (mass/volume) 8.3 mg/dL 8.5-10.1 Whole blood basic metabolic panel - 04/07/18 06:05 Serum or plasma sodium measurement (moles/volume) 140 mmol/L 135-145 Serum or plasma potassium measurement (moles/volume) 4.0 mmol/L 3.6-5.0 Serum or plasma chloride measurement (moles/volume) 96 mmol/L 98-107 Carbon dioxide 33 mmol/L -32 Serum or plasma anion gap determination (moles/volume) 11 mmol/L 5-14 Serum or plasma urea nitrogen measurement (mass/volume) 14 mg/dL 7-18 Serum or plasma creatinine measurement (mass/volume) 0.96 mg/dL 0.60-1.30 Serum or plasma urea nitrogen/creatinine mass ratio 15 NRG Serum or plasma creatinine measurement with calculation of estimated glomerular filtration rate > NRG Serum or plasma glucose measurement (mass/volume) 113 mg/dL 70-105 Serum or plasma calcium measurement (mass/volume) 8.4 mg/dL 8.5-10.1 Methicillin resistant Staphylococcus aureus (MRSA) screening culture - 04/08/18 02:40 MRSA SCREEN RESULT MRSA [facility] Complete blood count (CBC) with automated white blood cell (WBC) differential - 04/09/18 06:15 Blood leukocytes automated count (number/volume) 11.1 10*3/uL 4.3-11.0 Blood erythrocytes automated count (number/volume) 3.13 10*6/uL 4.35-5.85 Venous blood hemoglobin measurement (mass/volume) 9.4 g/dL 13.3-17.7 Blood hematocrit (volume fraction) 29 % 40-54 Automated erythrocyte mean corpuscular volume 92 [foz_us] 80-99 Automated erythrocyte mean corpuscular hemoglobin (mass per erythrocyte) 30 pg 25-34 Automated erythrocyte mean corpuscular hemoglobin concentration measurement (mass/volume) 33 g/dL 32-36 Automated erythrocyte distribution width ratio 14.8 % 10.0- 14.5 Automated blood platelet count (count/volume) 133 10*3/uL 130-400 Automated blood platelet mean volume measurement 11.8 [foz_us] 7.4-10.4 Automated blood neutrophils/100 leukocytes 81 % 42-75 Automated blood lymphocytes/100 leukocytes 11 % 12-44 Blood monocytes/100 leukocytes 8 % 0-12 Automated blood eosinophils/100 leukocytes 1 % 0-10 Automated blood basophils/100 leukocytes 0 % 0-10 Blood neutrophils automated count (number/volume) 9.0 10*3 1.8-7.8 Blood lymphocytes automated count (number/volume) 1.2 10*3 1.0-4.0 Blood monocytes automated count (number/volume) 0.9 10*3 0.0- 1.0 Automated eosinophil count 0.1 10*3/uL 0.0-0.3 Automated blood basophil count (count/volume) 0.0 10*3/uL 0.0-0.1 Whole blood basic metabolic panel - 04/09/18 06:15 Serum or plasma sodium measurement (moles/volume) 140 mmol/L 135-145 Serum or plasma potassium measurement (moles/volume) 3.6 mmol/L 3.6-5.0 Serum or plasma chloride measurement (moles/volume) 96 mmol/L 98-107 Carbon dioxide 35 mmol/L 21-32 Serum or plasma anion gap determination (moles/volume) 9 mmol/L 5-14 Serum or plasma urea nitrogen measurement (mass/volume) 17 mg/dL 7-18 Serum or plasma creatinine measurement (mass/volume) 0.99 mg/dL 0.60-1.30 Serum or plasma urea nitrogen/creatinine mass ratio 17 NRG Serum or plasma creatinine measurement with calculation of estimated glomerular filtration rate > NRG Serum or plasma glucose measurement (mass/volume) 109 mg/dL 70-105 Serum or plasma calcium measurement (mass/volume) 8.5 mg/dL 8.5-10.1 PREALBUMIN - 04/11/18 12:33 PREALBUM 10.9 % 18.0-37.0 Serum iron and total iron binding capacity panel - 04/12/18 10:30 Serum or plasma iron measurement (mass/volume) 31 % 40-180 Total iron binding capacity and transferrin saturation measurement 20 % 15-50 Iron binding capacity [mass/volume] in serum or plasma 154 % 280-380 UIBC (unsaturated iron binding capacity) 123 % 55-450 Serum or plasma ferritin measurement (mass/volume) 1424.9 % 32.0-356.0 Pathologist review of blood test by comment - 04/12/18 12:33 Blood leukocytes automated count (number/volume) 9.7 10*3/uL 4.3-11.0 Blood erythrocytes automated count (number/volume) 3.05 10*6/uL 4.35-5.85 Venous blood hemoglobin measurement (mass/volume) 9.1 g/dL 13.3-17.7 Blood hematocrit (volume fraction) 28 % 40-54 Automated erythrocyte mean corpuscular volume 93 [foz_us] 80-99 Automated erythrocyte mean corpuscular hemoglobin (mass per erythrocyte) 30 pg 25-34 Automated erythrocyte mean corpuscular hemoglobin concentration measurement (mass/volume) 32 g/dL 32-36 Automated erythrocyte distribution width ratio 15.1 % 10.0- 14.5 Automated blood platelet count (count/volume) 153 10*3/uL 130-400 Automated blood platelet mean volume measurement 12.4 [foz_us] 7.4-10.4 Automated blood neutrophils/100 leukocytes 77 % 42-75 Automated blood lymphocytes/100 leukocytes 12 % 12-44 Blood monocytes/100 leukocytes 8 % NRG Automated blood eosinophils/100 leukocytes 1 % 0-10 Automated blood basophils/100 leukocytes 0 % 0-10 Blood neutrophils automated count (number/volume) 7.5 10*3 1.8-7.8 Blood lymphocytes automated count (number/volume) 1.1 10*3 1.0-4.0 Blood monocytes automated count (number/volume) 0.9 10*3 0.0- 1.0 Automated eosinophil count 0.1 10*3/uL 0.0-0.3 Automated blood basophil count (count/volume) 0.0 10*3/uL 0.0-0.1 Manual blood segmented neutrophils/100 leukocytes 77 % NRG Blood band neutrophils/100 leukocytes 0 % NRG Manual blood lymphocytes/100 leukocytes 11 % NRG Manual eosinophils/100 leukocytes in nose 2 % NRG Manual blood basophils/100 leukocytes 0 % NRG Blood smudge cells detection by light microscopy SLIGHT NRG Blood lymphocytes variant/100 leukocytes 1 % NRG Blood anisocytosis detection by light microscopy SLIGHT NRG Blood erythrocyte morphology finding identification RARE TARGET CELLS NRG Blood toxic granules detection by light microscopy 1+ NRG Manual blood metamyelocytes/100 leukocytes 1 % NRG Blood poikilocytosis detection by light microscopy SLIGHT NRG Blood hypochromia detection by light microscopy SLIGHT NRG Blood reticulocytes count (number/volume) 73 10*9/L 24-90 Blood reticulocytes/100 erythrocytes 2.40 % 0.50-2.40 Blood stomatocytes detection by light microscopy SLIGHT NRG Blood platelet adequacy detection by light microscopy RARE GIANT PLATELETS NRG Pathologist review of blood test by comment - 04/12/18 12:33 Blood leukocytes automated count (number/volume) 9.7 10*3/uL 4.3-11.0 Blood erythrocytes automated count (number/volume) 3.05 10*6/uL 4.35-5.85 Venous blood hemoglobin measurement (mass/volume) 9.1 g/dL 13.3-17.7 Blood hematocrit (volume fraction) 28 % 40-54 Automated erythrocyte mean corpuscular volume 93 [foz_us] 80-99 Automated erythrocyte mean corpuscular hemoglobin (mass per erythrocyte) 30 pg 25-34 Automated erythrocyte mean corpuscular hemoglobin concentration measurement (mass/volume) 32 g/dL 32-36 Automated erythrocyte distribution width ratio 15.1 % 10.0- 14.5 Automated blood platelet count (count/volume) 153 10*3/uL 130-400 Automated blood platelet mean volume measurement 12.4 [foz_us] 7.4-10.4 Automated blood neutrophils/100 leukocytes 77 % 42-75 Automated blood lymphocytes/100 leukocytes 12 % 12-44 Blood monocytes/100 leukocytes 8 % NRG Automated blood eosinophils/100 leukocytes 1 % 0-10 Automated blood basophils/100 leukocytes 0 % 0-10 Blood neutrophils automated count (number/volume) 7.5 10*3 1.8-7.8 Blood lymphocytes automated count (number/volume) 1.1 10*3 1.0-4.0 Blood monocytes automated count (number/volume) 0.9 10*3 0.0- 1.0 Automated eosinophil count 0.1 10*3/uL 0.0-0.3 Automated blood basophil count (count/volume) 0.0 10*3/uL 0.0-0.1 Manual blood segmented neutrophils/100 leukocytes 77 % NRG Blood band neutrophils/100 leukocytes 0 % NRG Manual blood lymphocytes/100 leukocytes 11 % NRG Manual eosinophils/100 leukocytes in nose 2 % NRG Manual blood basophils/100 leukocytes 0 % NRG Blood smudge cells detection by light microscopy SLIGHT NRG Blood lymphocytes variant/100 leukocytes 1 % NRG Blood anisocytosis detection by light microscopy SLIGHT NRG Blood erythrocyte morphology finding identification RARE TARGET CELLS NRG Blood toxic granules detection by light microscopy 1+ NRG Manual blood metamyelocytes/100 leukocytes 1 % NRG Blood poikilocytosis detection by light microscopy SLIGHT NRG Blood hypochromia detection by light microscopy SLIGHT NRG Blood reticulocytes count (number/volume) 73 10*9/L 24-90 Blood reticulocytes/100 erythrocytes 2.40 % 0.50-2.40 Blood stomatocytes detection by light microscopy SLIGHT NRG Blood platelet adequacy detection by light microscopy RARE GIANT PLATELET NRG Serum or plasma lithium measurement (moles/volume) - 04/12/18 12:33 BNP level 26.4 pg/mL <100.0 Automated blood complete blood count (hemogram) panel - 04/14/18 06:41 Blood leukocytes automated count (number/volume) 8.4 10*3/uL 4.3-11.0 Blood erythrocytes automated count (number/volume) 3.10 10*6/uL 4.35-5.85 Venous blood hemoglobin measurement (mass/volume) 9.3 g/dL 13.3-17.7 Blood hematocrit (volume fraction) 29 % 40-54 Automated erythrocyte mean corpuscular volume 93 [foz_us] 80-99 Automated erythrocyte mean corpuscular hemoglobin (mass per erythrocyte) 30 pg 25-34 Automated erythrocyte mean corpuscular hemoglobin concentration measurement (mass/volume) 32 g/dL 32-36 Automated erythrocyte distribution width ratio 14.9 % 10.0- 14.5 Automated blood platelet count (count/volume) 174 10*3/uL 130-400 Automated blood platelet mean volume measurement 12.0 [foz_us] 7.4-10.4 Comprehensive metabolic panel - 04/14/18 06:41 Serum or plasma sodium measurement (moles/volume) 137 mmol/L 135-145 Serum or plasma potassium measurement (moles/volume) 3.5 mmol/L 3.6-5.0 Serum or plasma chloride measurement (moles/volume) 93 mmol/L 98-107 Carbon dioxide 32 mmol/L 21-32 Serum or plasma anion gap determination (moles/volume) 12 mmol/L 5-14 Serum or plasma urea nitrogen measurement (mass/volume) 18 mg/dL 7-18 Serum or plasma creatinine measurement (mass/volume) 1.29 mg/dL 0.60-1.30 Serum or plasma urea nitrogen/creatinine mass ratio 14 NRG Serum or plasma creatinine measurement with calculation of estimated glomerular filtration rate 55 NRG Serum or plasma glucose measurement (mass/volume) 119 mg/dL 70-105 Serum or plasma calcium measurement (mass/volume) 8.9 mg/dL 8.5-10.1 Serum or plasma total bilirubin measurement (mass/volume) 0.7 mg/dL 0.1-1.0 Serum or plasma alkaline phosphatase measurement (enzymatic activity/volume) 87 U/L 40-136 Serum or plasma aspartate aminotransferase measurement (enzymatic activity/volume) 21 U/L 5-34 Serum or plasma alanine aminotransferase measurement (enzymatic activity/volume) 15 U/L 0-55 Serum or plasma protein measurement (mass/volume) 6.0 g/dL 6.4-8.2 Serum or plasma albumin measurement (mass/volume) 3.0 g/dL 3.2-4.5 CALCIUM CORRECTED 9.7 mg/dL 8.5-10.1 Magnesium - 04/14/18 06:41 Magnesium 1.6 mg/dL 1.8-2.4 Whole blood basic metabolic panel - 04/15/18 04:20 Serum or plasma sodium measurement (moles/volume) 136 mmol/L 135-145 Serum or plasma potassium measurement (moles/volume) 3.5 mmol/L 3.6-5.0 Serum or plasma chloride measurement (moles/volume) 93 mmol/L 98-107 Carbon dioxide 30 mmol/L 21-32 Serum or plasma anion gap determination (moles/volume) 13 mmol/L 5-14 Serum or plasma urea nitrogen measurement (mass/volume) 19 mg/dL 7-18 Serum or plasma creatinine measurement (mass/volume) 1.22 mg/dL 0.60-1.30 Serum or plasma urea nitrogen/creatinine mass ratio 16 NRG Serum or plasma creatinine measurement with calculation of estimated glomerular filtration rate 59 NRG Serum or plasma glucose measurement (mass/volume) 103 mg/dL 70-105 Serum or plasma calcium measurement (mass/volume) 9.2 mg/dL 8.5-10.1 Magnesium - 04/15/18 04:20 Magnesium 1.9 mg/dL 1.8-2.4 Whole blood basic metabolic panel - 04/16/18 05:30 Serum or plasma sodium measurement (moles/volume) 137 mmol/L 135-145 Serum or plasma potassium measurement (moles/volume) 3.6 mmol/L 3.6-5.0 Serum or plasma chloride measurement (moles/volume) 94 mmol/L 98-107 Carbon dioxide 31 mmol/L 21-32 Serum or plasma anion gap determination (moles/volume) 12 mmol/L 5-14 Serum or plasma urea nitrogen measurement (mass/volume) 19 mg/dL 7-18 Serum or plasma creatinine measurement (mass/volume) 1.25 mg/dL 0.60-1.30 Serum or plasma urea nitrogen/creatinine mass ratio 15 NRG Serum or plasma creatinine measurement with calculation of estimated glomerular filtration rate 57 NRG Serum or plasma glucose measurement (mass/volume) 124 mg/dL 70-105 Serum or plasma calcium measurement (mass/volume) 9.0 mg/dL 8.5-10.1 Encounters ACCT No. Visit Date/Time Discharge Status Pt. Type Provider Facility Loc./Unit Complaint [id number] 10/17/2018 14:40:00 10/17/2018 23:59:59 CLS Outpatient JENNIFER FERRELL APRN [facility] [id number] 08/16/2017 16:20:00 Document Registration [id number] 10/17/2018 05:38:00 10/17/2018 10:15:00 DIS Outpatient MOMO ELLIOTT MD Via [facility] PREOP COLONOSCOPY [id number] 04/06/2018 10:19:00 04/18/2018 13:35:00 DIS Inpatient CATHY CASTELLANOS MD Via [facility] IRF COPD MYOPATHY [id number] 04/04/2018 14:13:00 04/06/2018 10:00:00 DIS Inpatient SIDNEY HORTA DO K [facility] 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, 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 FAILURE [id number] 03/20/2018 13:54:00 03/28/2018 13:15:00 DIS Inpatient DARSHAN ATKINSON MD Via [address] ACUTE PANCREATITIS [id number] 11/01/2017 06:00:00 11/01/2017 10:50:00 DIS Outpatient KATE STUART MD Via [facility] RIGHT KNEE TORN MEDIAL MENISCUS [id number] 10/24/2017 11:47:00 10/24/2017 12:07:00 DIS Outpatient KATE STUART MD Via [facility] PREOP RIGHT KNEE TORN MEDIAL MENISCUS [id number] 03/22/2017 09:14:00 03/22/2017 15:30:00 DIS Outpatient KATE STUART MD [facility] RIGHT SHOULDER GLENOID LABRUM TEAR [id number] 03/20/2017 11:41:00 03/20/2017 14:13:00 DIS Outpatient KATE STUART MD [facility] PREOP RIGHT SHOULDER GLENOID LABRUM TEAR [id number] 01/25/2017 13:47:00 01/25/2017 23:59:59 CLS Outpatient SCARLET WHITFIELD APRN [facility] RT [id number] 01/23/2017 19:51:00 01/24/2017 03:55:00 DIS Outpatient SCARLET WHITFIELD APRN [facility] SLEEP G47.30 [id number] 01/03/2017 08:37:00 01/03/2017 23:59:59 CLS Outpatient SADE JARAMILLO, KATE Reese [facility] RAD ROTATOR CUFF TEAR PARTIAL RT [id number] 08/24/2016 10:53:00 08/24/2016 23:59:59 CLS Outpatient JENNIFER FERRELL [facility] RAD SCREENING FOR LUNG CA [id number] 11/12/2013 13:00:00 11/14/2013 16:52:00 DIS Outpatient RUSSELL MCKENNA [facility] REHAB DDD L-SPINE, CATALINO KNEE OA [id number] 04/02/2013 09:45:00 04/02/2013 23:59:59 CLS Outpatient ISIAH DAUGHERTY MD [facility] LAB BROILER CHEF OR COOK MED USE [id number] 10/24/2018 10:15:00 PEN Preadmit MOMO ELLIOTT MD [facility] ENDO SCREENING/HX POLYPS [id number] 08/18/2014 08:47:00 08/18/2014 23:59:59 CLS Outpatient JENNIFER FERRELL APRN [id number] 03/13/2014 13:29:00 03/13/2014 23:59:59 CLS Outpatient JENNIFER FERRELL APRN [id number] 01/07/2014 14:45:00 01/07/2014 23:59:59 CLS Outpatient VICKY HODGSON APRN [id number] 11/11/2013 10:24:00 11/11/2013 23:59:59 CLS Outpatient JENNIFER FERRELL APRN [id number] 10/10/2013 12:57:00 10/10/2013 23:59:59 CLS Outpatient SIDNEY HORTA DO [id number] 09/04/2013 09:26:00 09/04/2013 23:59:59 CLS Outpatient JOSE LUIS ELLER MD [id number] 08/12/2013 09:01:00 08/12/2013 23:59:59 CLS Outpatient VIOLETA KNIGHT APRN [id number] 06/24/2013 09:31:00 06/24/2013 23:59:59 CLS Outpatient JENNIFER FERRELL APRN [id number] 05/09/2013 18:14:00 05/09/2013 23:59:59 CLS Outpatient JENNIFER FERRELL APRN [id number] 02/27/2013 14:44:00 02/27/2013 23:59:59 CLS Outpatient JENNIFER FERRELL APRN [id number] 01/09/2013 14:06:00 01/09/2013 23:59:59 CLS Outpatient JENNIFER FERRELL APRN [id number] 06/07/2012 11:10:00 06/07/2012 23:59:59 CLS Outpatient [id number] 05/02/2012 06:33:00 05/02/2012 23:59:59 [place] [id number] 03/28/2012 15:18:00 03/28/2012 23:59:59 CLS Outpatient JENNIFER FERRELL APRN [id number] 03/28/2012 15:18:00 03/28/2012 23:59:59 CLS Outpatient JENNIFER FERRELL APRN [id number] 12/10/2012 11:43:00 Document Registration [id number] 10/25/2012 12:58:00 Document Registration [id number] 10/12/2012 09:38:00 Document Registration [id number] 08/16/2012 17:41:00 Document Registration
--- NOTE | 2018-10-24 15:34 | OPERATIVE REPORT ---
DATE OF SERVICE: 10/24/2018 ATTENDING PRIMARY CONVERTIBLE TOP INSTALLER: Xiomara Collado APRN PREOPERATIVE DIAGNOSES: Screening colonoscopy with previous history of polyps. POSTOPERATIVE DIAGNOSES: Chronic stage I external and internal hemorrhoids, moderate sigmoid diverticulosis. PROCEDURE: Colonoscopy. SURGEON: Momo Elliott MD ANESTHESIA: Conscious sedation. ESTIMATED BLOOD LOSS: Minimal. FINDINGS: Chronic stage I external and internal hemorrhoids, moderate sigmoid diverticulosis. DISPOSITION: The patient tolerated the procedure well. INDICATIONS: The patient is a 68-year-old male in need of a followup screening colonoscopy. His last colonoscopy was 5 years ago and polyps were identified, biopsied and found to be benign. He also did have 2 previous colonoscopies before this, where polyps were again identified; however, these have all been benign. He does not report any family history of colon cancer and does not report any issues with red blood per rectum nor any dark tarry stools. 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 DESCRIPTION OF PROCEDURE: The patient was brought to the endoscopy suite in the left lateral decubitus position. After adequate IV pain and sedating medications and conscious sedation anesthesia, a digital rectal examination was performed. Mild chronic stage I external and internal hemorrhoids were identified, which were not actively edematous nor inflamed and no bleeding. Normal sphincter tone was felt and there were no palpable masses. Prostate gland was palpable and appeared normal. The endoscope was then intubated to the anus and rectum gently insufflated. The endoscope was then advanced through the valves of [place] of the rectum with no polyps or any neoplasm identified. We then proceeded through the sigmoid colon where a moderate sigmoid diverticulosis identified. There were no mucosal inflammatory changes to indicate any active diverticulitis. This diverticulosis also did extend into the descending colon. The endoscope was then advanced to the remainder of the transverse, ascending colon to the cecum. These segments were normal. There were no polyps or any neoplasms identified throughout the colon or rectum. The endoscope was then slowly withdrawn while taking a second look and suctioning residual air with no additional findings. The patient tolerated the procedure well. We will recommend high fiber diet with at least 30 grams of fiber daily as well as significant amounts of water to promote soft stools on a daily basis. He does not need another colonoscopy for another 10 years. Job ID: [id number] DocumentID: [id number] Dictated Date: 10/24/2018 11:27:01 Bundle Tier And Labeler Date: 10/24/2018 15:33:28 Dictated By: MOMO ELLIOTT MD
== END 2018-10-24 12:15 | disposition home or self-care (01) ==
LOC: ENDO 08:35
PROVIDERS: ATTEND Surgery
DX: Z12.11 Encounter for screening for malignant neoplasm of colon (principal); K64.0 First degree hemorrhoids; K57.30 Diverticulosis of large intestine without perforation or abscess without bleeding; Z86.010 Personal history of colon polyps; E66.01 Morbid (severe) obesity due to excess calories; J44.9 Chronic obstructive pulmonary disease, unspecified; I10 Essential (primary) hypertension; Z98.84 Bariatric surgery status; Z79.899 Other long term (current) drug therapy; Z87.891 Personal history of nicotine dependence; Z80.1 Family history of malignant neoplasm of trachea, bronchus and lung

== ENCOUNTER 2021-04-25 13:22 | Emergency (ER) | payer MEDICARE ==
[~2021-04-25] VITALS: Ht 175 cm; Wt 86.1 kg
[~2021-04-25 13:22] MED LIST changes: +HYDR-34 PO; -HYDR-3816 PO; +LISI40TA9 PO; +POTA-160 PO; +POTA-169 PO; -POTA10TA6 PO; -POTA20TA8 PO
[2021-04-25] MEDS ORDERED: CEPH500T PO (13:43)
--- NOTE | 2021-04-25 13:45 | ED Lower Extremity ---
General Chief Complaint: Lower Extremity Stated Complaint: L FOOT BIG TOE INFECTION Nursing Triage Note: Pt ambulatory to ED c/o possible toe infection. Pt dropped table on his left foot last monday. Concernred about his big toe. Source: patient Exam Limitations: no limitations History of Present Illness Date Seen by Provider: Apr 25, 2021 Time Seen by Provider: 13:30 Initial Comments Patient is a 70-year-old male who presents to the emergency department today with a chief complaint of painful red left great toe. He states he dropped a table on it last week, had it x-rayed, no fractures were noticed. Patient states that when he woke up this morning the toe was red. He has been putting Neosporin on it and showering daily. States he is not a diabetic. Not allergic to any medications. Concerned about losing the toenail. All other review of systems reviewed and negative except as stated. Onset: last week Severity: mild Pain/Injury Location: left 1st toe Method of Injury: direct blow Allergies and Home Medications Allergies Coded Allergies: No Known Drug Allergies (Unverified , 10/17/18) Patient Home Medication List Home Medication List Reviewed: Yes Albuterol Sulfate (Proair Hfa) 1 Puff Puff, 2 PUFF IH Q4H PRN for SHORTNESS OF BREATH, (Reported) Entered as Reported by: MELVIN LAMAR on 04/06/18 1236 Arformoterol Tartrate (Brovana) 15 Mcg/2 Ml Vial.neb, 15 MCG NEB BID, (Reported) Entered as Reported by: BRIGID ALCANTARA on 03/20/17 1153 Budesonide (Budesonide) 0.5 Mg/2 Ml Ampul.neb, 0.5 MG NEB BID, (Reported) Entered as Reported by: MELVIN LAMAR on 03/20/18 1506 Review of Systems Constitutional: see HPI Respiratory: no symptoms reported Cardiovascular: no symptoms reported Musculoskeletal: joint pain (left great toe) Skin: change in color, change in hair/nails All Other Systems Reviewed Negative Unless Noted: Yes Past Ujezypd-Nlwuvx-Cdlmnu Hx Immunizations Up To Date Tetanus Booster (TDap): Unknown PED Vaccines UTD: No Influenza Vaccine Up-to-Date: Yes; Up-to-Date COVID19 Vaccine 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: [employer] Seasonal Allergies Seasonal Allergies: No Past Medical History Surgeries: Yes (BILAT HIP REPLACEMENTS, R SHOULDER SCOPE, GASTRIC SLEEVE, GALLBLADDER) Abdominal, Gallbladder, Joint Replacement Respiratory: Yes COPD Currently Using CPAP: No Currently Using BIPAP: No Cardiac: No Hypertension Neurological: No Reproductive Disorders: No Sexually Transmitted Disease: No HIV/AIDS: No Genitourinary: No Gastrointestinal: Yes Pancreatitis Musculoskeletal: Yes Arthritis Endocrine: No HEENT: Yes (GLASSES) Cataract Loss of Vision: Denies Hearing Impairment: Denies Cancer: No Psychosocial: No Integumentary: No Blood Disorders: No Adverse Reaction/Blood Tranf: No (N/A) Family Medical History Alzheimer's disease PATERNAL GRANDMOTHER Arthritis 19 MOTHER Cardiovascular disease 19 MOTHER MATERNAL GRANDMOTHER MATERNAL GRANDFATHER PATERNAL GRANDFATHER Hypertension 19 MOTHER Neoplasm 19 FATHER (LUNG CANCER) Cancer, CAD Over 55 Years Old, Hypertension Physical Exam Vital Signs Vital Signs - First Documented 04/25/21 13:32 Temp 36.6 Pulse 69 Resp 16 B/P (MAP) 147/104 (118) Pulse Ox 97 O2 Delivery Room Air Capillary Refill : Less Than 3 Seconds Height, Weight, BMI Height: 5'9.00" Weight: 257lbs. 0.0oz. 116.030908zp; 28.00 BMI Method:Stated General Appearance: WD/WN, no apparent distress Cardiovascular: regular rate, rhythm Respiratory: no respiratory distress, no accessory muscle use, wheezing (scattered exp wheezes) Hips: bilateral hip non-tender, bilateral hip normal inspection, bilateral hip normal range of motion, bilateral hip no evidence of injury Legs: bilateral leg non-tender, bilateral leg normal inspection, bilateral leg normal range of motion, bilateral leg no evidence of injury Knees: bilateral knee non-tender, bilateral knee normal inspection, bilateral knee normal range of motion, bilateral knee no evidence of injury Ankles: bilateral ankle non-tender, bilateral ankle normal inspection, bilateral ankle normal range of motion, bilateral ankle no evidence of injury Feet: bilateral foot normal range of motion, bilateral foot swelling (Discoloration of the great toenail with bleeding at the distal tip of the toe that is crusted. The toenail is loose on the nailbed. There is surrounding erythema at the distal phalanx of the great toe. Mildly tender to palpation.) Skin: normal color, warm/dry, other (as above; erythema to tip of great toe) Progress/Results/Core Measures Results/Orders Vital Signs/I&O 04/25/21 13:32 Temp 36.6 Pulse 69 Resp 16 B/P (MAP) 147/104 (118) Pulse Ox 97 O2 Delivery Room Air Blood Pressure Mean: 118 Departure Impression Primary Impression: Traumatic subungual hematoma of toe of left foot Qualified Codes: S90.222A - Contusion of left lesser toe(s) with damage to nail, initial encounter Additional Impression: Cellulitis of great toe of left foot Disposition: HOME, SELF-CARE Condition: Stable Departure-Patient Inst. Decision time for Depature: 13:42 Referrals: LINO UNDERWOOD MD (PCP/Family) Primary Care Physician Patient Instructions: Cellulitis (Skin Infection), Adult ED Add. Discharge Instructions: keep the toe clean, dry and covered. you can apply neosporin (triple antibiotic ointment) twice a day on the toe. Antibiotics as directed. Be careful putting socks on and off, as the toenail will like peel off in the next couple of days. If this happens, continue to place neosporin on the nail bed and a non stick dressing. Follow up with your primary doctor in a week to 10 days for re-evaluation of the infection. Return to the ER for any worsening redness, fever, pus-like drainage or other emergent concerns. Scripts Cephalexin (Cephalexin) 500 Mg Tablet 500 MG PO TID, #21 TAB Prov: ADAMARIS MARTIN MD 04/25/21 ADAMARIS MARTIN MD Apr 25, 2021 13:45
[2021-04-25 13:50] VITALS: BP 147/104
== END 2021-04-25 13:50 | disposition home or self-care (01) ==
LOC: EDUNIT# 13:22 → ER 13:23
DX: S90.212A Contusion of left great toe with damage to nail, initial encounter (principal); L03.032 Cellulitis of left toe; J44.9 Chronic obstructive pulmonary disease, unspecified; I10 Essential (primary) hypertension; W20.8XXA Other cause of strike by thrown, projected or falling object, initial encounter
CPT/HCPCS: 99281

== ENCOUNTER 2021-08-26 05:31 | Outpatient (CLI) | payer MEDICARE ==
[~2021-08-26] VITALS: Ht 165.2 cm; Wt 84.1 kg
[~2021-08-26 05:31] MED LIST changes: +CEPH500T PO
== END 2021-08-27 08:59 | disposition home or self-care (01) ==
LOC: PREOP 05:31
PROVIDERS: ATTEND Surgery
DX: Z01.818 Encounter for other preprocedural examination (principal)

== ENCOUNTER 2021-09-02 08:23 | Day surgery (SDC) | payer MEDICARE ==
[2021-09-02] VITALS (10 sets, daily range): BP systolic 94–122; BP diastolic 53–75
[~2021-09-02] VITALS: Ht 175.3 cm; Wt 84.1 kg
[2021-09-02] MEDS: LACTATED RINGERS 1,000 ML IV PRN ×2 (09:00→11:26)
[2021-09-02] MEDS ORDERED: ceFAZolin 2 GM IV Premixed 50 ML IV ONE (09:00)
[2021-09-02] MEDS ORDERED: LIDOCAINE/EPI 2% 1:100,00 (XYLOCAINE) 20 ML VIAL ONE (09:01)
[2021-09-02] MEDS ORDERED: MIDAZOLAM 2 MG/2 ML (VERSED) VIAL ONE (09:06)
[2021-09-02] MEDS ORDERED: SEVOFLURANE (ULTANE) 15 ML INHAL SOLN ONE ×2 (09:06→11:48)
[2021-09-02] MEDS ORDERED: ONDANSETRON 4 MG/2 ML (SDV) Z0FRAN ONE (09:06)
[2021-09-02] MEDS ORDERED: fentaNYL INJ 100 MCG/2 ML AMP ONE (09:06)
[2021-09-02] MEDS ORDERED: proPOfol 200 MG/20 ML (DIPRIVAN) VIAL IV ONE (09:06)
[2021-09-02] MEDS ORDERED: LIDOCAINE PF 2% 5 ML (XYLOCAINE) VIAL ONE (09:06)
[2021-09-02] MEDS ORDERED: ONDANSETRON 4 MG/2 ML (SDV) Z0FRAN IVP PRN ×2 (09:15→12:15)
[2021-09-02] MEDS ORDERED: HYDROcodone/APAP 5 MG/325 MG (LORTAB) TAB PO ONE (09:15)
[2021-09-02] MEDS ORDERED: morphine INJ 10 MG/ML 1ML (SYR OR VIAL) IVP PRN (09:15)
[2021-09-02] MEDS ORDERED: ACETAMINOPHEN 325 MG TABLET PO PRN (09:15)
--- NOTE | 2021-09-02 09:15 | Progress Note-Pre Operative ---
Pre-Operative Progress Note H&P Reviewed The H&P was reviewed, patient examined and no changes noted. Date Seen by Provider: Sep 02, 2021 Time Seen by Provider: 09:10 Date H&P Reviewed: Sep 02, 2021 Time H&P Reviewed: 09:05 Pre-Operative Diagnosis: Right inguinal hernia DWIGHT BRIAN APRN Sep 02, 2021 09:15
[2021-09-02] MEDS ORDERED: HYDR-3817 PO (09:16)
--- NOTE | 2021-09-02 09:16 | Discharge Inst-Surgical ---
D/C Lap Instructions-KIDO Reconcile Patient Problems Problems Reviewed?: Yes New, Converted, or Re-Newed RX: RX on Chart Follow Up Appt in 2 weeks Activity as tolerated No driving for 24 hours No driving while on pain medications Incentive Spirometry use every 2 hours while awake Regular Diet Symptoms to Report: Fever over 101 degree F, Nausea/Vomiting Infection Signs and Symptoms to report: Increased redness, Foul odor of wound, Increased drainage Bathing instructions: May shower Operative Area Clean/Dry; Keep incision clean/dry If any problems/questions: Contact your physician or go to Emergency Room DWIGHT BRIAN APRN Sep 02, 2021 09:16
[2021-09-02] MEDS ORDERED: ALPR1TAB2 PO (09:44)
[2021-09-02] MEDS ORDERED: ROPI0.253 PO (09:44)
[2021-09-02] MEDS ORDERED: ROCURONIUM 50 MG/5 ML (ZEMURON) VIAL IV ONE (11:48)
--- NOTE | 2021-09-02 11:57 | Progress Note-Post Operative ---
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 Anesthesia Type get Estimated Blood Loss Estimated blood loss (mL): minimal Specimens/Packing Specimens Removed none MOMO ELLIOTT MD Sep 02, 2021 11:57
--- NOTE | 2021-09-02 12:05 | Anesthesia-General Post-Op ---
General Patient Condition Mental Status/LOC: Same as Preop Cardiovascular: Satisfactory Nausea/Vomiting: Absent Respiratory: Satisfactory Pain: Controlled Complications: Absent Post Op Complications Complications None Follow Up Care/Instructions Patient Instructions None needed. Anesthesia/Patient Condition Patient Condition Patient is doing well, no complaints, stable vital signs, no apparent adverse anesthesia problems. No complications reported per nursing. RUSSELL WEAVER CRNA Sep 02, 2021 12:05
[2021-09-02] MEDS ORDERED: fentaNYL INJ 100 MCG/2 ML AMP IVP ONE (12:15)
[2021-09-02] MEDS ORDERED: MEPERIDINE (DEMEROL) INJ 50 MG/ML IVP ONE (12:15)
[2021-09-02] MEDS ORDERED: morphine INJ 10 MG/ML 1ML (SYR OR VIAL) IVP ONE (12:15)
--- NOTE | 2021-09-02 12:22 | OPERATIVE REPORT ---
DATE OF SERVICE: 09/02/2021 ATTENDING PRIMARY CARE PHYSICIAN: Dr. Heath Link. PREOPERATIVE DIAGNOSIS: Incarcerated symptomatic right inguinal hernia. POSTOPERATIVE DIAGNOSIS: Incarcerated symptomatic right inguinal hernia. PROCEDURE: Laparoscopic incarcerated right inguinal hernia repair with mesh. SURGEON: Momo Elliott MD AUDIT INTERN: Alexis Carreno APRN ANESTHESIA: General endotracheal. ESTIMATED BLOOD LOSS: Minimal. FINDINGS: Incarcerated right inguinal hernia with small bowel within the hernia sac. DISPOSITION: The patient tolerated the procedure well. INDICATIONS: The patient is a 70-year-old male referred over to us for right inguinal hernia. He had tenderness and a bulge there for a few months; however, he has lost a significant amount of weight and is status post laparoscopic gastric sleeve resection. He was examined and found to have an incarcerated symptomatic hernia. DESCRIPTION OF PROCEDURE: The patient was brought to the operating room, laid supine on the table. After adequate IV pain and sedative medications and general endotracheal intubation, abdomen was prepped and draped in standard surgical fashion. A 0.5% Marcaine with epinephrine was then used to anesthetize the overlying skin in the infraumbilical rim and a crescent shaped skin incision made using a 15 blade. Sharp towel clamp was then used to retract the abdominal wall anteriorly and a Veress needle inserted with low opening pressure of 0 mmHg. The abdomen was then insufflated to 15 mmHg pressure. The Veress needle removed and a 5 mm XL trocar placed followed by a 5 mm 45-degree angle laparoscope visualizing the peritoneal cavity. A 4-quadrant abdominal exploration was performed. There was an incarcerated right inguinal hernia with small bowel within the hernia sac. No strangulation. There was no left inguinal hernia component. Bilateral 5 mm ports under direct visualization after the skin and peritoneal lining were anesthetized using 0.5% Marcaine with epinephrine and transverse skin incision was made using 15 blade. The patient was then placed in Trendelenburg position as well as plane right side up, left side down. The small bowel was reduced out of the hernia sac with no signs of strangulation. The peritoneal lining was then opened starting laterally towards the conjoined tendon inguinal ligament using Sonicision. We then proceeded medially until the Ayaz's ligament was reached. We then proceeded with inferior dissection encompassing the hernia sac. The cord and surrounding contents identified and spared throughout the process. Good hemostasis was observed and a medium size 3DMax polypropylene mesh was then placed through the 10 mm port and tacked to Ayaz's ligament medially with an absorbable and the inguinal ligament laterally. The peritoneal lining was then placed over the mesh and a few absorbable placed to hold this in place with visualization of good hemostasis. The abdomen desufflated and remaining ports were removed and all skin incisions were closed using 4-0 Monocryl running subcuticular sutures. Wounds were then cleaned and covered with Dermabond. The patient tolerated the procedure well. We will start IV normal pain medication as well as a clear liquid diet. Once he is tolerating clears, he has good pain control with oral pain medications, ambulating well, we will discharge him home. He will be instructed to do no heavy lifting or exertion for the next six weeks as well. Job ID: [id number] DocumentID: [id number] Dictated Date: 09/02/2021 11:56:22 In Process Inspector Date: 09/02/2021 12:21:35 Dictated By: MOMO ELLIOTT MD MTDD
[2021-09-02] MEDS ORDERED: HYDROcodone/APAP 5 MG/325 MG (LORTAB) TAB ONE (13:21)
== END 2021-09-02 14:05 ==
LOC: SDC 08:23
PROVIDERS: ATTEND Surgery
DX: K40.30 Unilateral inguinal hernia, with obstruction, without gangrene, not specified as recurrent (principal); Z87.891 Personal history of nicotine dependence
CPT/HCPCS: 49650; 87081; C1781